=== PATIENT | female | born 2000 | race Two or more races ===

== ENCOUNTER 2024-04-13 10:59 | Outpatient (OUT) | payer MEDICAID, SELFPAY ==
[2024-04-13 11:43] LABS: Estimated Average Glucose 97 mg/dL
[2024-04-13 11:44] LABS: Basophils Percent Auto 0.2 % (0.2-2.0); Eosinophils Absolute Auto 0.1 10^3/uL (0.0-0.7); Hematocrit 34.4 % (36.0-48.0); Hemoglobin 11.6 g/dL (12.0-16.0); Immature Granulocytes Abs Auto 0.03 10^3/uL (0.00-0.03); Immature Granulocytes Pct Auto 0.3 % (0.0-0.5); Lymphocytes Absolute Auto 1.8 10^3/uL (1.2-3.8); Lymphocytes Percent Auto 18.8 % (20.5-60.0); Mean Corpuscular HGB Conc 33.7 g/dL (29.9-35.2); Mean Corpuscular Hemoglobin 30.1 pg (26.7-34.0); Mean Corpuscular Volume 89.4 fL (81.0-99.0); Mean Platelet Volume 8.7 fL (9.5-13.5); Monocytes Absolute Auto 0.7 10^3/uL (0.3-0.8); Monocytes Percent Auto 6.8 % (1.7-12.0); Neutrophils Percent Auto 72.9 % (43.0-75.0); Platelet Count 314 10^3/uL (150-450); Red Blood Count 3.85 10^6/uL (4.20-5.40); Red Cell Distribution Width 12.1 % (11.0-15.0); White Blood Count 9.5 10^3/uL (4.0-11.0)
[2024-04-13 12:36] LABS: Amphetamine Screen Urine NEGATIVE (NEGATIVE); Barbiturates Screen Urine NEGATIVE (NEGATIVE); Benzodiazepines Screen Urine NEGATIVE (NEGATIVE); Buprenorphine Screen Urine NEGATIVE (NEGATIVE); Cannabinoid Screen Urine POSITIVE (NEGATIVE); Cocaine Screen Urine NEGATIVE (NEGATIVE); Methadone Screen Urine NEGATIVE (NEGATIVE); Methamphetamines Screen Urine NEGATIVE (NEGATIVE); Opiate Screen Urine NEGATIVE (NEGATIVE); Oxycodone Screen Urine NEGATIVE (NEGATIVE); Phencyclidine Screen Urine NEGATIVE (NEGATIVE); Tricyclic Antidepressant Urine NEGATIVE (NEGATIVE)
[2024-04-14 06:08] LABS: HCV Ab Non Reactive (Non Reactive); HIV Ab/p24 Ag Screen Non Reactive (Non Reactive)
[2024-04-14 07:08] LABS: HBsAg Screen Negative (Negative); Rubella Antibodies, IgG 1.42 index (Immune >0.99)
[2024-04-14 13:07] LABS: Rapid Plasma Reagin, Quant Non Reactive titer (NonRea<1:1)
[2024-04-18 00:11] LABS: Cannabinoid Positive (.); Carboxy THC Conf, MS, UR >750 ng/mL (Cutoff=10)
== END 2024-04-13 11:00 | disposition home or self-care (01) ==
LOC: LAB 11:04
PROVIDERS: PCP Obstetrics & Gynecology; Visit Provider Obstetrics & Gynecology
DX: Z34.01 Encounter for supervision of normal first pregnancy, first trimester (principal); N92.6 Irregular menstruation, unspecified
CPT/HCPCS: 36415; 80307; 80349; 83036; 85025; 86592; 86762; 86803; 86850; 86900; 86901; 87086; 87340; 87389

== ENCOUNTER 2024-04-15 11:25 | Outpatient (OUT) | payer MEDICAID, SELFPAY ==
--- NOTE | 2024-04-15 11:28 | US_ITS ---
The [address] [address] Patient Name: ENRICO CASTILLO MRN: [id number] date: 2000 Sex: F Assigned Patient Location: [facility] Current Patient Location: Accession/Order Number: [id number] Exam Date: 04/15/2024 11:29 Report Date: 04/16/2024 04:41 At the request of: NANCI TATUM Procedure: US OB <= 14 weeks fetus EXAMINATION: US OB <= 14 weeks fetus HISTORY: MISSED MENSES COMPARISON: No relevant comparison available. FINDINGS: GESTATIONAL SAC: Present and normal appearing. YOLK SAC: Present and normal appearing. POLE: Present and normal appearing. CARDIAC: Present. UTERUS: Normal size and appearance. OVARIES: Right: Not seen. Left: Normal. CERVIX: Not evaluated. CUL-DE-SAC: Normal. OTHER: None. AGE BY LMP: 14 weeks 0 days SAI BY LMP: 10/14/2024 AGE BY US CRL: 14 weeks 3 days SAI BY US CRL: 10/11/2024 US/US OB <= 14 weeks fetus IMPRESSION: 1. Single live intrauterine . 2. Suboptimal evaluation due to maternal body habitus and age. Electronically authenticated by: OMAR MAGALLANES Date: 04/16/2024 04:41
== END 2024-04-15 11:26 | disposition home or self-care (01) ==
LOC: NOMS 11:26
PROVIDERS: PCP Obstetrics & Gynecology; Visit Provider Obstetrics & Gynecology
DX: Z34.01 Encounter for supervision of normal first pregnancy, first trimester (principal); Z3A.14 14 weeks gestation of pregnancy; N92.6 Irregular menstruation, unspecified
CPT/HCPCS: 76801

== ENCOUNTER 2024-05-18 11:54 | Outpatient (OUT) | payer MEDICAID, SELFPAY ==
--- OUTSIDE RECORDS SUMMARY | 2024-05-18 12:10 | XMS_ITS | CCD ---
Author Organization [facility] Care Team Providers Care [employer] Player Name Role Phone Maria Elena James Attending Unavailable Horn, Maria Elena Primary Care Unavailable Mari aElena James Attending Unavailable Jacob, Maria Elena Primary Care Unavailable Kathy Kraus Primary Care Physician [phone] Virginie Anthony Attending Unavailable Jose Duran Attending Unavailable MEGAN NESBITT Attending Unavailable Ivelisse Leger Referring Unavailable Ivelisse Leger Admitting Unavailable Ivelisse Leger Attending Unavailable Jose Duran Attending Unavailable Unavailable Primary Care Provider UnavailSARAH Rizo Attending Unavailable YONY SOTO Attending Unavailable Allergies Allergy Classification Reported Allergen(s) Allergy Type Date of Onset Reaction(s) Facility (2 sources) No Known Medication Allergies; Translations: [No Known Medication Allergies] Propensity to adverse reactions (disorder) [facility] Repository Medications Current Medications Medication Drug Class(es) Dates Sig (Normalized) Sig (Original) amoxicillin 875 mg / clavulanate 125 mg oral tablet (1 source) Penicillin-class Antibacterial Start: 12-07-2021 End: 12-17-2021 Augmentin 875 mg-125 mg Tab 1 tab(s), Oral, q12hr for 10 day(s), 20 tab(s), Refill(s) 0 Start Date: 12/07/21 Stop Date: 12/17/21 Status: Ordered ciprofloxacin 3 mg/ml / dexamethasone 1 mg/ml otic suspension (2 sources) Corticosteroid, Quinolone Antimicrobial Start: 12-06-2021 End: 12-13-2021 ciprofloxacin-dex amethasone 0.3%-0.1% Otic Susp 4 drop(s), Ear-Right, BID for 7 day(s), 10 mL, Refill(s) 0, [facility]/pharmacy #[id number], 168, cm, 12/06/21 8:00:00 EDT, Height/Length Dosing, 107, kg, 12/06/21 8:00:00 EDT, Weight Dosing Start Date: 12/06/21 Stop Date: 12/13/21 Status: Ordered fluticasone propionate 0.05 mg/actuat metered dose nasal spray (1 source) Corticosteroid Start: 01-16-2021 take 1 spray(s) nasal route twice daily fluticasone 0.05 mg/inh Nasal Mcdonald 1 spray(s), Nasal, BID, 16 gram, Refill(s) 5, each nostril, [facility]/pharmacy #[id number], 168, cm, 01/16/21 11:00:00 EDT, Height/Length Dosing, 109.7, kg, 01/16/21 11:00:00 EDT, Weight Dosing Start Date: 01/16/21 Status: Ordered fluticasone 0.05 mg/inh Nasal Mcdonald (1 source) Start: 01-16-2021 take 1 spray(s) nasal route twice daily fluticasone 0.05 mg/inh Nasal Mcdonald 1 spray(s), Nasal, BID, 16 gram, Refill(s) 5, each nostril, [facility]/pharmacy #[id number], 168, cm, 01/16/21 11:00:00 EDT, Height/Length Dosing, 109.7, kg, 01/16/21 11:00:00 EDT, Weight Dosing Start Date: 01/16/21 Status: Ordered GENERIC EXTERNAL MEDICATION (5 sources) take 1 tablet by mouth once daily GENERIC EXTERNAL MEDICATION Take 1 tablet by mouth Daily Active naproxen 500 mg oral tablet (6 sources) Nonsteroidal Anti-inflammatory Drug Start: 12-07-2021 take 1 tablet by mouth twice daily as needed for pain Naprosyn 500 mg Tab 500 mg = 1 tab(s), Oral, BID, PRN for pain, # 20 tab(s), Refills(s) 0 Start Date: 12/07/21 Status: Ordered Start: 12-07-2021 Naprosyn Oral, BID, Refills(s) 0 Start Date: 12/07/21 Status: Ordered promethazine hydrochloride 25 mg oral tablet (2 sources) Phenothiazine Start: 06-15-2021 take 1 tablet by mouth twice daily as needed for nausea promethazine 25 mg Tab 25 mg = 1 tab(s), Oral, BID, PRN as needed for nausea/vomiting, # 60 tab(s), Refills(s) 1, Pharmacy: [facility]/pharmacy #[id number], 168, cm, 04/03/21 14:43:00 EST, Height/Length Dosing, 105.8, kg, 04/03/21 14:43:00 EST, Weight Dosing Start Date: 06/15/21 Status: Ordered Problems Active Problems Problem Classification Problem Date Documented Da te Episodic/Chronic Abdominal pain (5 sources) Left upper quadrant pain 01-16-2021 Episodic Anxiety disorders (5 sources) Anxiety 10-02-2020 Chronic Gastroduodenal ulcer (except hemorrhage) (5 sources) 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 Nausea and vomiting (10 sources) Nausea and vomiting 06-07-2021 Episodic Noninfectious gastroenteritis (10 sources) Chronic diarrhea; Translations: [Gastroenteritis] 04-13-2021 Episodic Other ear and sense organ disorders (3 sources) Otitis externa; Translations: [Unspecified otitis externa, unspecified ear] Onset: 12-06-2021 Chronic Other liver diseases (5 sources) Non-alcoholic fatty liver Onset: 04-29-2017 01-06-2019 Chronic Other liver diseases (5 sources) Steatosis of liver 06-15-2021 Chronic Other nutritional; endocrine; and metabolic disorders (5 sources) Body mass index 40+ - severely obese 05-06-2020 Chronic Other and delivery including normal (3 sources) Normal ; Translations: [Encounter for supervision of normal first , first trimester] 03-12-2024 Episodic Other upper respiratory infections (10 sources) Sore throat symptom; Translations: [Streptococcal sore throat] Onset: 08-16-2018 04-13-2021 Episodic Residual codes; unclassified (1 source) Gestation period, 9 weeks; Translations: [9 weeks gestation of ] 03-12-2024 Episodic Residual codes; unclassified (2 sources) Gestation period, 15 weeks; Translations: [15 weeks gestation of ] 04-23-2024 Episodic Skin and subcutaneous tissue infections (1 source) Cellulitis of face; Translations: [Cellulitis of face] Onset: 12-07-2021 Episodic Substance-related disorders (3 sources) Smoker 12-07-2021 Chronic Comment on above: Added secondary to d ocumentation in Social History. Superficial injury; contusion (1 source) Contusion of hand; Translations: [Contusion of unspecified hand, initial encounter] Onset: 10-25-2022 Episodic Unclassified (5 sources) History of SARS-CoV-2 04-13-2021 Unclassified (5 sources) Non-smoker 05-06-2020 Past or Other Problems Problem Classification Problem Date Documented Da te Episodic/Chronic Viral infection (1 source) Disease caused by 2019-nCoV; Translations: [COVID-19] Results Test Name Value Interpretation Reference Range Facility Urinalysis macro (dipstick) panel (U)on 04-23-2024 Bilirubin, UA Negative Negative - 4(70) +++ mg/dL [facility] Blood, UA Negative Negative - 50 Titus/mcL [facility] Clarity, UA Clear [facility] Color, UA Yellow [facility] Glucose, UA Negative Negative - 2000(110) ++++ mg/dL [facility] Interpretation and review of laboratory results Abnormal [facility] Ketones, UA Negative Negative - 160(16) ++++ mg/dL [facility] Leukocytes, UA Negative Negative - 500+++ Tristan/mcL [facility] Nitrite, UA Negative Negative - Positive [facility] pH, UA 7.5 5 - 9 [facility] Protein, UA Trace Negative - 2000(20) ++++ mg/dL [facility] Spec Grav, UA 1.02 1 - 1.03 [facility] Urobilinogen, UA 0.2 0.2 - 12 mg/dL [facility] HEMOGLOBIN A1Con 024 Glucose [Mass/Vol] 97 mg/dL [facility] HbA1c (Bld) [Mass fraction] 5 % 4.5 - 6.2 % [facility] Comment on above: ADA RECOMMENDED LIMI T 4.0 - 6.0 ADA THERAPEUTIC TARGET < 7.0 ACTION SUGGESTED > 7.0 [facility] DHEASon 11-01-2022 DHEA-S [Mass/Vol] 254.0 microgram/dL Invalid Interpretation Code 110.0-431.7 [facility] Comment on above: Result Comment: Perf ormed at: [facility] [address] [id number] PhD Mp Holloway Performed By: #### 1 [id number], 5569374, 51855651, 9151485, 3270225, 1815593, 99316430, 7359115, [id number], [id number] ####[facility] [address] [place] [address] FSH and LHon 11-01-2022 Follitropin Qn 3.7 m[IU]/mL Invalid Interpretation Code [facility] Comment on above: Result Comment: Adul t Female: Follicular phase 3.5 - 12.5 Ovulation phase 4.7 - 21.5 Luteal phase 1.7 - 7.7 Postmenopausal 25.8 - 134.8 Performed at: [address] [id number] PhD Mp Holloway Performed By: #### 1 [id number], 8493440, 02590675, 4181955, 1131212, 2183680, 65765691, 0259570, [id number], [id number] ####[address] [place] [address] Lutropin Qn 4.3 m[IU]/mL Invalid Interpretation Code [facility] Comment on above: Result Comment: Adul t Female: Follicular phase 2.4 - 12.6 Ovulation phase 14.0 - 95.6 Luteal phase 1.0 - 11.4 Postmenopausal 7.7 - 58.5 Performed By: #### 1 [id number], 8214587, 57951793, 8407234, 8080240, 5915052, 99742593, 7517674, 925374045, [id number] ####[facility] [address] [place] [address] Insulin Lvlon 11-01-2022 Insulin Qn 12.8 u[IU]/mL Invalid Interpretation Code 2.6-24.9 [facility] Comment on above: Result Comment: Perf ormed at: [address] [id number] PhD Mp Holloway Performed By: #### 1 3364233, 7967185, 17085196, 2884555, 5401561, 5675477, 97916365, 6058991, [id number], [id number] ####[facility] [address] [place] [address] Testost Totalon 11-01-2022 Testosterone [Mass/Vol] 31 ng/dL Invalid Interpretation Code [facility] Comment on above: Result Comment: Perf ormed at: [facility] [address] [id number] PhD Mp Holloway Performed By: #### 1 0922930, 2816930, 97922160, 7536721, 3920072, 4540536, 15198273, 1061956, 431576550, [id number] ####[facility] [address] [place] [address] CHEMISTRYOrdered By: SYSTEM SYSTEM on 10-31-2022 25-hydroxyvitamin D3 [Mass/Vol] 10.1 ng/mL Low 30.0 - 100.0 ng/mL [facility] Remisol Cholesterol [Mass/Vol] 190 mg/dL Normal 120 - 200 mg/dL [facility] Remisol Cholesterol in HDL [Mass/Vol] 44 mg/dL Invalid Interpretation Code [facility] Remisol Cholesterol in LDL [Mass/Vol] 108 mg/dL Normal <=129mg/dL [facility] Remisol Cholesterol in VLDL [Mass/Vol] 50 mg/dL High 7 - 40 mg/dL [facility] Remisol Glucose post fast [Mass/Vol] 94 mg/dL Normal 55 - 99 mg/dL [facility] Remisol Prolactin [Mass/Vol] 7.55 ng/mL Normal 3.34 - 26.72 ng/mL [facility] Remisol Triglyceride [Mass/Vol] 252 mg/dL High <=149mg/dL [facility] Remisol TSH Qn 1.29 m[IU]/L Normal 0.34 - 5.60 mcIU/mL [facility] Remisol CHEMISTRYOrdered By: Hiro fernandez on 10-31-2022 HbA1c (Bld) [Mass fraction] 4.9 % Normal <=5.9% FT ChemAutoSS Consent for Treatmenton Consent for Treatment [id number]#1 .00CD:127 Normal [facility] Glu Fastingon 10-31-2022 Glucose [Mass/Vol] 94 mg/dL Normal 55-99 [facility] Comment on above: Performed By: #### 1 [id number], 9582297, 52919245, 8592091, 5618890, 5574966, 47932223, 9969283, 676687159, [id number] ####[facility] [address] [place] [address] YopA4dlg 10-31-2022 HbA1c (Bld) [Mass fraction] 4.9 % Normal <=5.9 [facility] Comment on above: Performed By: #### 1 7473732, 6268002, 67574720, 5077741, 9449705, 2515422, 73205885, 2926709, 466280600, 879354752 ####[facility] [address] [place] [address] Lipid Panelon 10-31-2022 Cholesterol [Mass/Vol] 190 mg/dL Normal 120-200 [facility] Comment on above: Performed By: #### 1 4619769, 6974193, 59432872, 1431581, 3603033, 8910992, 80536860, 4344565, 821388382, 042944885 ####[facility] [address] [place] [address] Cholesterol in HDL [Mass/Vol] 44 mg/dL Invalid Interpretation Code [facility] Comment on above: Result Comment: HDL > or equal to 60 mg/dL: Low cardiovascular risk HDL < 40 mg/dL : High cardiovascular risk Performed By: #### 1 9977480, 1376745, 26190354, 0607083, 0099293, 6430638, 52678037, 7163176, 211143788, 488907634 ####[facility] [address] [place] [address] Cholesterol in LDL [Mass/Vol] 108 mg/dL Normal <=129 [facility] Comment on above: Performed By: #### 1 2753220, 6204014, 39511423, 1610993, 3654553, 6397997, 11692340, 6848864, 208091217, 109038213 ####[facility] [address] [place] [address] Cholesterol in VLDL [Mass/Vol] 50 mg/dL High 7-40 [facility] Comment on above: Performed By: #### 1 8077378, 3678234, 55190877, 4452380, 3554505, 5371611, 92334020, 3056560, 497969944, 657610865 ####[facility] [address] [place] [address] Triglyceride [Mass/Vol] 252 mg/dL High <=149 [facility] Comment on above: Performed By: #### 1 8401787, 1205191, 29977649, 3995572, 3267536, 7488063, 90360341, 1150525, 802528679, 115348016 ####[facility] [address] [place] [address] Physician Orderon 10-31-2022 Physician Order [id number] #1.00CD:127 Normal [facility] Prolactinon 10-31-2022 Prolactin [Mass/Vol] 7.55 ng/mL Normal 3.34-26.[address] [facility] Comment on above: Performed By: #### 1 0359005, 9380699, 97916879, 7800487, 7736473, 9153614, 79430142, 8093760, 944401925, 956037004 ####[facility] [address] [place] [address] TSHon 10-31-2022 TSH Qn 1.29 m[IU]/L Normal 0.34-5.60 [facility] Comment on above: Performed By: #### 1 6929486, 9638065, 90545199, 0203781, 7225515, 4290222, 53065541, 4179303, 529938647, 785104184 ####[facility] [address] [place] [address] US Pelvis Non-OB Completeon 10-31-2022 US Pelvis Non-OB Complete Exam Date/Time: 10/31/2022 09:38 EDT Reason for Exam: N93.8 Report IMPRESSION: Unremarkable ultrasound of the female pelvis. EXAMINATION: US Pelvis Non-OB Complete HISTORY: Irregular periods. COMPARISON: CT 07/12/2021 TECHNIQUE: Sonography of the pelvis was performed by transabdominal technique. Images were obtained and stored in a permanent archive. RESULT: Uterus: -Orientation: Anteverted -Size: Uterus Length: 7.9 cm x Uterus Width: 4.4 cm x Uterus Height: 3.0 cm. Uterus Volume: 54.6 cm3 -Myometrium: Homogeneous echotexture. -Endometrial echo complex: Endometrium Thickness: 1.2 cm -Cervix: Not well evaluated trans-abdominally Right ovary: Normal sonographic appearance. -Size: Right Ovary Length: 3.6 cm x Right Ovary Width: 2.6 cm x Right Ovary Height: 1.2 cm. Right Ovary Volume: 6.1 cm3 -Complex cyst: None. -Solid mass: None. -Vascular flow present. Left ovary: Normal sonographic appearance. -Size: Left Ovary Length: 2.8 cm x Left Ovary Width: 2.8 cm x Left Ovary Height: 1.7 cm. Left Ovary Volume: 7.0 cm3 -Complex cyst: None. -Solid mass: None. -Vascular flow present. Free fluid: None. Report Ordering Provider: Ivelisse Leger FINAL REPORT Dictated: 10/31/2022 3:10 pm Rito García MD Signed (Electronic Signature): 10/31/2022 3:10 pm Signed by: Rito García MD Transcribed by: MILES Technologist: BARI Normal [facility] Vitamin D 25 Hydroxyon 10-31 25-hydroxyvitamin D3 [Mass/Vol] 10.1 ng/mL Low 30.0-100.0 [facility] Comment on above: Result Comment: Vit sanchez D deficiency has been defined as a level of serum 25-OH vitamin D less than 20 ng/mL (1,2) by the [place] of [employer] and an Endocrine Society practice guideline. The Endocrine Society further defined vitamin D insufficiency as a level between 21 and 29 ng/mL (2). 1. IOM ([place] of Medicine). 2010. Dietary reference intakes for calcium and D. [place]: The National Academies Press. 2. Lauro MF, Idris BRITO, Torin BRENNAN, et al. Evaluation, treatment, and prevention of vitamin D deficiency: an Endocrine Society clinical practice guideline. JCEM. 2010; 96 (7):1911-30. Performed By: #### 1 [id number], 2410556, 00432612, 3503657, 6262200, 4643602, 12399551, 0905768, 856742995, [id number] ####[facility] [address] [place] [address] Consent for Treatmenton 09-28 Consent for Treatment [id number] .00CD:127 Normal [facility] Discharge Instructionson Discharge Instructions [id number]#1 .00CD:127 Normal [facility] ED Clinical Summaryon 2022 ED Clinical Summary [place] [id number] ED Clinical Summary Person Information Name: APRIL PUENET Kandy/[facility] Age: 22 Years : 2000 Sex: Female Language: [place] PCP: Kathy Kraus NP Marital Status: Single Visit Id: Visit Reason: Hand pain-swelling; Hand injury - Minor; RIGHT HAND INJURY Speciality: Acuity: 4 Enc Type: Emergency Med Service: Emergency Arrival: 10/25/2022 10:11:42 Discharge: 10/25/2022 11:15:24 LOS: 000 01:04 Checkin: 10/25/2022 10:11:42 Checkout: 10/25/2022 11:15:24 Dispo Type: Home (Routine DC) EVENTS: Event Name Event Status Request Date/Time Start Date/Time Complete Date/Time Arrive Complete 10/25/2022 10:11:42 10/25/2022 10:11:42 10/25/2022 10:11:42 Document Home Meds Request 10/25/2022 10:11:42 Triage Complete 10/25/2022 10:11:42 10/25/2022 10:20:49 10/25/2022 10:20:49 Registration Complete 10/25/2022 10:17:03 10/25/2022 10:17:03 10/25/2022 10:17:03 Reg Complete Request 10/25/2022 10:17:03 Reg Bed Request Complete 10/25/2022 10:17:03 10/25/2022 10:17:03 10/25/2022 10:17:03 Bed Assign Complete 10/25/2022 10:17:16 10/25/2022 10:17:16 10/25/2022 10:17:16 Dr Exam Complete 10/25/2022 10:17:16 10/25/2022 10:17:48 10/25/2022 10:17:48 RN Exam Complete 10/25/2022 10:17:16 10/25/2022 10:22:33 10/25/2022 10:22:33 Registration Request 10/25/2022 10:17:48 Dr Exam Complete 10/25/2022 10:17:58 10/25/2022 10:17:58 10/25/2022 10:17:58 X-Ray Complete 10/25/2022 10:23:49 10/25/2022 10:24:22 10/25/2022 10:32:30 Wet Read Request 10/25/2022 10:32:30 Discharge Complete 10/25/2022 11:08:03 10/25/2022 11:18:49 10/25/2022 11:18:49 Transfer Complete 10/25/2022 11:18:49 10/25/2022 11:18:49 10/25/2022 11:18:49 ADDRESS: [address] [place] [address] [address] [facility] [phone] PHYS DOC NOTES: MEDICAL INFORMATION: Prescriptions Given: Medications to Continue with No Changes Other Medications naproxen (Naprosyn 500 mg Tab) 1 Tablets By Mouth 2 times a day as needed for pain. Refills: 0. naproxen (Naprosyn) By Mouth 2 times a day. PATIENT EDUCATION INFORMATION: Instructions: Hand Contusion Follow up: With: Address: When: Kathy Kraus [address] [place], [place] [phone] Business (1) In 3 days 10/28/2022 DIAGNOSIS: Hand contusion Normal [facility] ED Note-Physicianon 10-26-19 ED Note-Physician Basic Information Time Seen: Carlos Han PA-C 10/25/2022 10:17 Chief Complaint Patient states punched wall multiple times due to of cat. C/o right hand pain. History of Present Illness 22-year-old female comes to the ED for evaluation of a right hand injury. The patient states she punched a wall today, presents with pain and swelling of the dorsal aspect of the right hand. She has no other complaints or concerns. No prior treatments. Review of Systems A 10 point review of systems is negative except as noted above. Medical and Surgical History: Reviewed and noted Social history: Lives at home Tobacco: Denies Physical Exam Vitals & Measurements T: 36.7 ?C(Oral) HR: 94(Peripheral) RR: 18 BP: 124/80 SpO2: 99% HT: 168 cm WT: 100 kg BMI: 35.43 Nurses notes and vital signs reviewed and patient is not hypoxic. General: The patient appears well, resting comfortably. Skin: Warm, dry. Head: Atraumatic. Neck: No JVD. Eye: Normal conjunctiva. Ears, Nose, Mouth, and Throat: Moist mucous membranes. Cardiovascular: Strong distal pulses. Chest wall: Respiratory: Respirations are nonlabored. Back: Normal range of motion. Musculoskeletal: Tenderness and soft tissue swelling to the dorsal aspect of the right hand around the MCP joints of the fourth and fifth digits. Range of motion of the fingers is decreased due to pain. No gross deformity. No bony instability. No evidence of neurovascular compromise. No tenderness over the wrist. Gastrointestinal: Urological: Neurological: Awake and alert. No focal deficits. Follows commands. Psychiatric: Cooperative. Medical Decision Making X-rays show no evidence of fracture or dislocation. The diagnostic limitation of x-rays were discussed. It was explained that follow-up imaging may be necessary, and PCP follow-up was given. Patient is educated rice therapy. Patient was encouraged to return to the ED if symptoms worsen or change. Assessment/Plan Hand contusion (S60.229A: Contusion of unspecified hand, initial encounter) Orders: XR Hand 3+ Views Right Disposition Plan Patient Discharge Condition Disposition: Discharged home Condition: Improved and stable Counseled: Patient and/or family were counseled to workup, results, treatment plan and follow-up recommendations Discharge Prescription List Prescriptions No active prescription medications Follow-up With When Contact Information Kathy Kraus In 3 days 10/28/2022 EDT [address] [place] [address] [phone] Business (1) Additional Instructions: Patient Education Hand Contusion Attestation Patient seen and evaluated by the physician first assistant. Attending physician was present in the emergency department and supervised care. This visit was performed by both the physician and an APC. I performed all aspects of the MDM as documented. This report was transcribed using voice recognition software. Every effort was made to ensure accuracy, however, inadvertently computerized net architect mistakes may be present. Appropriate healthcare PPE was used in evaluating this patient. The patient was placed in a mask. The healthcare provider was wearing mask, gloves, and utilizing proper hand hygiene. All equipment was properly cleansed. Problem List/Past Medical History Ongoing Bilateral otitis externa Chronic diarrhea Duodenal ulcer Fatty liver Fatty liver disease, nonalcoholic Gastroenteritis History of COVID-19 Morbid obesity with BMI of 40.0-44.9, adult Nausea and vomiting Nausea with vomiting Non-smoker Smoker Sore throat Historical Anxiety Left upper quadrant pain Strep throat Procedure/Surgical History bilateral tubes in ears (2003). Medications Inpatient No active inpatient medications Home Naprosyn, Oral, BID, Not taking Naprosyn 500 mg Tab, 500 mg= 1 tab(s), Oral, BID, PRN, Not taking Allergies No Known Allergies No Known Medication Allergies Social History Alcohol - Denies Alcohol Use, 03/08/2020 Substance Abuse - High Risk, 10/02/2020 Current, Marijuana, 1-2 times per week, 10/02/2020 Tobacco - Denies Tobacco Use, 03/08/2020 Never (less than 100 in lifetime) Tobacco Use:. Never Smokeless Tobacco Use:. Household tobacco concerns: No., 12/09/2021 Never (less than 100 in lifetime) Tobacco Use:. Never Smokeless Tobacco Use:., 02/23/2021 Family History Family history is negative Lab Results No qualifying data available. Diagnostic Results XR Hand 3+ Views Right 10/25/22 10:40:11 IMPRESSION: NEGATIVE RIGHT HAND. CLINICAL HISTORY: Pain, Traumatic COMPARISONS: NONE AVAILABLE FINDINGS: AP, lateral and oblique views of the right hand demonstrate no evidence of fracture, dislocation, bone or joint abnormality. Ordering Provider: Carlos Han Signed By: Dick Stark MD, V. 10/25/22 10:32:30 Radiation Dose: Ka,r in mGy = na DAP = na Signed By: Dick Stark MD, V. [facility] Comment on above: Result Comment: Elec tronically Signed By: Carlos Han PA-C\.br\Date and Time Signed: 10/25/22 11:15 EDT\.br\Electronically Co-Signed By: Jose Duran DO\.br\Date and Time Co-Signed: 10/25/22 13:44 EDT ED Patient Education Noteon 10-25-2022 ED Patient Education Note Orthopedics Hand Contusion A hand contusion is a deep bruise to the hand. Contusions are the result of a blunt injury to tissues and muscle fibers under the skin. The injury causes bleeding under the skin. The skin overlying the contusion may turn blue, purple, or yellow. Minor injuries may cause a painless contusion, but more severe injuries may cause contusions that stay painful and swollen for a few weeks. What are the causes? This condition is usually caused by a hard hit or direct force to your hand, such as having a heavy object fall on your hand. What are the signs or symptoms? Symptoms of this condition include: ? A swollen hand. ? Pain and tenderness in your hand. ? Discoloration of your hand. The area may have redness and then turn blue, purple, or yellow. How is this diagnosed? This condition is diagnosed based on: ? A physical exam. ? Your medical history. ? Imaging studies, such as: ? An X-ray. This may be needed to check for other injuries, such as broken bones (fractures). ? A CT scan or an MRI. This may be done if your health care provider thinks you have torn or injured ligaments. How is this treated? This condition may be treated with: ? Rest, ice, pressure (compression), and raising (elevating) the injured area. This is often called RICE therapy. ? An elastic wrap to support your hand. ? Csve-nri-vsalgda medicines to control pain. Follow these instructions at home: RICE therapy ? Rest the injured area. ? If directed, put ice on the injured area. ? Put ice in a plastic bag. ? Place a towel between your skin and the bag. ? Leave the ice on for 20 minutes, 2?3 times a day. ? If directed, apply light compression to the injured area using an elastic wrap. ? Make sure the wrap is not too tight. ? If your fingers become numb or turn cold or blue, take the wrap off and reapply it more loosely. ? Remove and reapply the wrap as told by your health care provider. ? Raise (elevate) the injured area above the level of your heart while you are sitting or lying down. General instructions ? Take kbug-xmn-ksaijbc and prescription medicines only as told by your health care provider. ? Protect your hand from getting injured further. ? Keep all follow-up visits as told by your health care provider. This is important. Contact a health care provider if: ? Your symptoms do not improve after several days of treatment. ? You have increased redness, swelling, or pain in your hand or fingers. ? You have difficulty moving the injured area. ? Your swelling or pain is not relieved with medicines. Get help right away if: ? You have severe pain. ? Your hand or fingers become numb. ? Your hand or fingers turn pale, blue, or cold. ? You cannot move your hand or wrist. ? Your hand is warm to the touch. Summary ? A hand contusion is a deep bruise to the hand. ? Contusions are the result of a blunt injury to tissues and muscle fibers under the skin. ? This injury is treated with rest, ice, compression and elevation. This information is not intended to replace advice given to you by your health care provider. Make sure you discuss any questions you have with your health care provider. Document Revised: 08/03/2021 Document Reviewed: 08/03/2021 [employer] Patient Education ? 2022 [employer] [facility] ED Patient Summaryon 06-29-2 023 ED Patient Summary [place] [id number] Patient Discharge Instructions Person Information Name: APRIL PUENTE Age: 22 Years Arrival Date: 10/25/2022 10:11:42 Discharge Diagnosis: Hand contusion Primary Care Physician: Kathy Kraus NP Provider Information Primary Provider: Jose Duran DO Advanced Veterinary Radiologist:Carlos Han PA-C The exam and treatment you received in the Emergency Department were for an urgent problem and are not intended as complete care. It is important that you follow up with a doctor, nurse practitioner, or physician?s first assistant for ongoing care. If your symptoms become worse or you do not improve as expected and you are unable to reach your usual health care provider, you should return to the Emergency Department. We are available 24 hours a day. APRIL PUENTE has been given the following list of patient education materials, prescriptions and follow-up instructions: Follow-up Instructions: With: Address: When: Kathy Kraus [address] [place], [place] [id number] [phone] Business (1) In 3 days 10/28/2022 In the event that this physician does not participate in your insurance network, please consult with your insurance company to find a nearby participating provider. Patient Education Materials: Hand Contusion A MESSAGE TO ALL PATIENTS REGARDING OPIOIDS PRESCRIPTION OPIOIDS: WHAT YOU NEED TO KNOW Prescription opioids can be used to help relieve wvqeoees-ez-mbjkiv pain and are often prescribed following a surgery or injury, or for certain health conditions. These medications can be an important part of the treatment but also come with serious risks. It is important to work with your healthcare provider to make sure you are getting the safest, most effective care. WHAT ARE THE RISKS AND SIDE EFFECTS OF OPIOID USE? Prescription opioids carry serious risks of addiction and overdose, especially with prolonged use. An opioid overdose, often marked by slowed breathing, can cause sudden . The use of prescription opioids can have a number of side effects as well, even when taken as directed: ? Tolerance?meaning you might need to take more of the medication for the same pain relief ? Physical dependence?meaning you have symptoms of withdrawal when a medication is stopped ? Increased sensitivity to pain ? Constipation ? Nausea, vomiting, and dry mouth ? Sleepiness and dizziness ? Confusion ? Depression ? Low levels of testosterone that can result in lower sex drive, energy, and strength ? Itching and sweating RISKS ARE GREATER WITH: ? History of drug misuse, substance use disorder, or overdose ? Mental health conditions (such as depression or anxiety) ? Sleep apnea ? Older age (65 years and older) ? Avoid alcohol while taking prescription opioids. Also, unless specifically advised by your health care provider, medications to avoid include: ? Benzodiazepines (such as Xanax or Valium) ? Muscle relaxants (such as Soma or Flexeril) ? Hypnotics (such as Ambien or Lunesta) ? Other prescription opioids KNOW YOUR OPTIONS Talk to your health care provider about ways to manage your pain that don?t involve prescription opioids. Some of these options may actually work better and have fewer risks and side effects. Options may include: ? Pain relievers such as acetaminophen, ibuprofen, and naproxen ? Some medication that are also used for depression or seizures ? Physical therapy and exercise ? Cognitive behavioral therapy, a psychological, goal-directed approach, in which patients learn how to modify physical, behavioral, and emotional triggers of pain and stress. IF YOU ARE PRESCRIBED OPIOIDS FOR PAIN: ? Never take opioids in greater amounts or more often than prescribed. ? Follow up with your primary health care provider. o Work together to create a plan on how to manage your pain. o Talk about ways to help manage your pain that don?t involve prescription opioids. o Talk about any and all concerns and side effects. ? Help prevent misuse and abuse o Never sell or share prescription opioids. o Never use another person?s prescription opioids. ? Store prescription opioids in a secure place and out of reach of others (this may include visitors, children, friends, and family). ? Safely dispose of unused prescription opioids: Find your community drug take-back program or your pharmacy mail-back program, or flush them down the toilet, following guidance from the Food and Drug Administration (www.fda.gov/Drugs/Re sourcesForYou). ? Visit www.cdc.gov/drugoverd ose to learn about the risks of opioids abuse and overdose. ? If you believe you may be struggling with addiction, tell your health care companion and ask for guidance or call SAMHSA?S National Helpline at 1-024-001-HELP. v Source: [place] Department o (more content not included)... Normal [facility] XR Hand 3+ Views Righton XR Hand 3+ Views Right Exam Date/Time: 10/25/2022 10:32 EDT Reason for Exam: Pain, Traumatic Report IMPRESSION: NEGATIVE RIGHT HAND. CLINICAL HISTORY: Pain, Traumatic COMPARISONS: NONE AVAILABLE FINDINGS: AP, lateral and oblique views of the right hand demonstrate no evidence of fracture, dislocation, bone or joint abnormality. Ordering Provider: Carlos Han FINAL REPORT Dictated: 10/25/2022 10:37 am Dick Stark MD, V. Signed (Electronic Signature): 10/25/2022 10:37 am Signed by: Dick Stark MD, V. Transcribed by: MILES Technologist: ELIA, Technical Comments Radiation Dose: Ka,r in mGy = na DAP = na Normal [facility] Physician Orderon 10-22-2022 Physician Order [id number]. [id number]:127 Normal [facility] Consenton 12-11-2021 Consent [id number] .00CD:127 Normal [facility] Family Medicine Office/Clini c Noteon 12-09-2021 Family Medicine Office/Clinic Note Chief Complaint EST bilateral ear pain HPI Staff Patient 21 yo female presents with ear pain Onset-Saturday Fevers: no Sinus congestion: no Sneezing: no Ear pain: left, right is worse Ear itching, popping, fullness, ringing, muffled hearing: all in both Ear drainage: no Sore throat: no Ear pain worse with chewing: yes DIfficulty hearing: yes Treatment- augmentin, norco, ciproflaxin History of Present Illness APRIL PUENTE is a 21 Years Female presents today for concerns of continued ear pain bilaterally. She states the right is worse today. She has been to the ED on 12/06 and 12/07 for same concerns, was started on Ciprodex eardrops for otitis externa at her first visit and then subsequently started on course of Augmentin and provided with Dairy during her second visit to the ED. Patient states she is taking the medications as prescribed and has gained no effectiveness relief from pain. She denies any fevers/chills, sore throats, nasal symptoms, cough, loss of taste or smell, headaches, tinnitus, dizziness, or any nausea/vomiting/diarr hea with symptoms. She does state that any kind of chewing or opening of the mouth does make the pain worse. Denies any significant facial swelling, erythema, ecchymosis. I have reviewed and verified the staff HPI to be accurate for this encounter. Review of Systems PHQ Score Initial Depression Screen Score: 0 ROS - Provider Constitutional: fever no, chills no, sweats no, weakness no Skin: rash no, lesions no, petechiae no ENMT: ear pain yes, ear drainage no, sore throat no, nasal congestion no , nasal drainage no hoarseness no Respiratory: chest discomfort no, shortness of breath no, cough no, orthopnea no, wheezing no Cardiovascular: chest pain no, palpitations no Neurologic: headache no, dizziness no, numbness/tingling no, weakness no Physical Exam Vitals & Measurements T: 36.7 ?C(Oral) HR: 76(Peripheral) BP: 132/84 SpO2: 99% HT: 168 cm HT: 168.0 cm WT: 107 kg WT: 107.0 kg BMI: 37.91 General: Well developed, well nourished, in no acute distress Ears: No deformity or lesion of external ear. Right Canal with mild edema and erythema, left canal noted with mild purulent drainage. There is a large serous effusion noted to the right TM, left TM appears normal. TM?s intact, Hearing grossly normal to conversational speech Nose: No deformity, discharge, inflammation, or lesions Mouth: Mucous membranes moist. Normal oropharynx, and posterior pharynx without lesions or exudates. Tongue normal Neck: Neck supple. No masses or palpable cervical nodes. Trachea midline. Lungs: Normal respiratory effort and clear to auscultation Cardio: Regular rate and rhythm, normal S1 and S2, no murmur, no rub Neurologic: Grossly normal Skin: No rashes, ulcerations, or suspicious lesions to visible skin Mental Status: Alert and oriented x3. Normal mood and affect Assessment/Plan 1. Bilateral otitis externa (H60.93: Unspecified otitis externa, bilateral) All medications prescribed by ED at this time. Will trial on one-time IM dose of dexamethasone as well as Medrol Dosepak to be discharged tomorrow to see if this helps with serous otitis which was discussed with patient. Can also add an kblm-ibz-itkltsn antihistamine. Please follow-up with her PCP to discuss possible ENT referral as she states this is a recurring issue for her and has had multiple times this year. 2. BMI 37.0-37.9, adult (Z68.37: Body mass index [BMI] 37.0-37.9, adult) Education attached on health risks of obesity and discusses healthy, balanced diet low in sugar, fat, carbs and exercise regimen Ordered: dexamethasone, 8 mg = 2 mL, Injection, IntraMuscular, Once, Stop date 12/09/21 11:40:00 EDT, Routine, Start date 12/09/21 11:40:00 EDT, 12/09/21 11:40:00 EDT Body Mass Index (BMI) documented 3008F Acute serous otitis media (H65.00: Acute serous otitis media, unspecified ear) See treatment plan above Ordered: dexamethasone, 8 mg = 2 mL, Injection, IntraMuscular, Once, Stop date 12/09/21 11:40:00 EDT, Routine, Start date 12/09/21 11:40:00 EDT, 12/09/21 11:40:00 EDT Orders: methylPREDNISolone, = 1 packet(s), Oral, As Directed, as directed on package labeling, X 6 day(s), # 21 tab(s), Refills(s) 0, Pharmacy: [facility]/pharmacy #[id number], 168, cm, 12/09/21 11:32:00 EDT, Height/Length Dosing, 107, kg, 12/09/21 11:32:00 EDT, Weight Dosing Follow-up With When Contact Information Efra DOLL, Kathy Mccartney, [facility] [address] [place] [address] [phone] Additional Instructions: Problem List/Past Medical History Ongoing Bilateral otitis externa Chronic diarrhea Duodenal ulcer Fatty liver Fatty liver disease, nonalcoholic Gastroenteritis History of COVID-19 Morbid obesity with BMI of 40.0-44.9, adult Nausea and vomiting Nausea with vomiting Non-smoker Smoker Sore throat Historical Anxiety Left upper quadrant pain Strep throat Procedure/Surgical History bilateral tubes in ears (2003). M (more content not included)... Normal [facility] Comment on above: Result Comment: Elec tronically Signed By: MEGAN NESBITT CNP\.tanisha\Date and Time Signed: 12/09/21 12:06 EDT Coding Summary.on 12-08-2021 Coding Summary. CD:[id number]:[id number] G h0bWw+PGhlYWQ+AP0QGDS gC08loTPvzC4QF3oAFY9A CSUURCMGTT8AXV3ctBY8J QhvC1IsgcFb TlrjxWCzFE94UTo4BAN8r VorSTpgdW4qfCBtJ6j8Dq KoNK05zX33QKfjUTMfKeU 3LjZpbjsgbWFy S3unMpNsjAOgVlv+PHRhY mxlIHdpZHRoPScxMDAlJy CoyZdbVS7pXh4gFNDbWFJ vbGxhcHNlOiBj p4wsDLChZXzyRA9bcHxfK 0XjmIV6RWDhb1p3Yc73wD I+VCKbLPJ9jEmwDWppx33 3DbEki9fxHYQ2 oVHcUPyiBKE4Y60re9H7S YFtYLXrWCH9xWS6cJ9wxT kjupfcZ1NfcBVpLmI4EGH 9dDJauV1dnKbw bethcY1eDrx+K87SEG2DI ZKZJO2TIxd5V8VyFezfdU I+BL13QAYpAD85ySXazLA on8fvhRv6StTu XWBeSIP6cBtoKIatc6YnA NBmF52euRFth9W5OSHesU topKFjDoFlpKW5oZ1gCYv lwwaux5azzxeb Geyux5sdyy23eH69P27qH FnjKLTrWIQ4VXNfCTJxyR ktff2hnZ4rDm2+GWezh3y lq1sduNg7FxQq YGFpagMsmUjfONJ3c6CsT m12U5TvsKypo8TlMuj6bt 72uSQkt7S8lVB2SAevHRW keF7oOSevSrD3 ALLwPvGojJ37lHBpIAtrU q5abNebhOkxAE4cCICehq drZNXavO6pZDKbgSJfeTr yNW0lYNEyzzun e850GfFeBNH7XNDnmWCgS 4HyxY2yNyKyYQHsSCKpV9 YzkHPmUKgrV232YOmpHdJ 8HSQckbUsE5Jy QRSwnMvnRdR9h2N6Ov5Tm 0AjqxnnLDL3FZptILH7Nn BsIwAwAkW6Y9TnUjy6WBW nxAqlHN6aK0Xx CYLukswyqawvaEB4BRZvD YXxeS48pILpIGbzFw7un7 H0g145BUKyMJEgmK57Rw7 udDogMTBwdCBU xB8mmqrcv9deezkuQlDxS LZbKVq7THt2HJRetLzlZg WnSOF1EwM3BSN6hDZotY7 ldSjotoowoX0z Oyc+H67svL3aVVC4FKK5y ujgJVZtaqBvEQ65XE60J4 RyPjwvdGFibGU+PGRpdiB icTubGM3hKrHp p0tpq8TtJLxsG3OgCSSjE EddVob7RTZbTNM1eLJ9nH 9rTUOqVZcmq5B5uUO8J8W jfnExki7nz6td VWVnQSokZ80ffBAih3P9L GNewUH0TDByjOzoEvCheL 93Oyc+MQWsnEfmx2DxYov fi5wlt0rshOm4 SvJzVREzmjLgtSzkSIO3t 9YnQc99I93wMSreKPGlMI ArLHJfCNUwrShnfn6vhF6 wIi8+PGNvbCB3 xSB4hB3cGOLdLeV8TEjcO 838WmNfzPZzClcvh1qcf4 tfaFk1FtTrITLeahZouKp eQSU8b5YhSg85 I48mVHicSEHiZDQoWMOiM OAzpRrgmc4irQ9dUr5+PC 7qp4gfdy75mN67tRS+PHR dKQW4bVhiGRhw YUBotF8yPXqiAjJ2CWBnE dYnhI01uHJxMQzuLh2nbF cjmIboRB1qURFmbzeah92 2CaGdm0ofSHLp mSBgGGrgODC5U54kl8N6Y PRqVPWeOUK5rGR2vE8egO lnbjogbGVmdDsgdmVydGl mHXqxBTocC799 IHRvcDsnPlBhdGllbnQgT oEqEKo2K7TrDwc9SRMlpY sdLW7zyJXfYHnrTf2orOz goZxeKA0iTYCn kwtps113MvKqr7ltWKLwr SJrEOfyDTE0M29vk6D5YM WvCBEoFJM9wDE4cP1pyUa nbjogbGVmdDsg kmBvuGhkMAdfMPhwN259D HRvcDsnPkJpcnRoIERhdG J4VV35NY04yNIer1W9dKY 5B8FdZUFerfvv sdkywGD1HXSkAUIciA00W k6ggUeqUz6mSACaQBT6PV ElxLSyI0OzwZ7oWeFpIIS oMUEpY4JzrVNu FLinC169EEbtJmT7AZBop aSjY1HsOBSenPipKkE0d3 M1Yu7FX1E3CM45LY79rPT ii3Q2kDQ7S0Tq JNRpcorhlnxjtEU1PPZnI QSavI63Bt5ecFlzVt7pLG IgEMU7UJUrtSWbR2GoyQ6 yOiAjMDAwMDAw W5RwoXFdXTzaU619GBxoP pM3JYQrdxFtL8SbNARzuM sqMcS2i5R2Wl9LFAo8SE3 1II86cVIlw3B3 yHC0S6OvNOOjcexmadhgg KG7COKgAPXpbD18Hb6wlO bhAt4rGNXgXDO6RSXkiLQ yN3FmuU9jGiDq RXFwWJDjM2RbzRDoGRexW 108XKaxHpH6LZMebpKrA5 QxYGWeuYtnJqK3m5K0Qo6 ACDPnMD40AZL2 jBI9WP85PZ60C4FeTfrwc GFibGU+PHRhYmxlIHdpZH RoPScxMDAlJyBzdHlsZT0 oLd9wCZTqXJWm jGwerRTaNvNqq7ykEKKoY IsvQW5npEraR0QqoTJ4II Zdf8y7Ud61I20yH7PwqBN +LMEpeFE1xXV7 wM6tBcNvWiT6IQwfE804D pWydXJyJvsjd8fok0wgaP s6SiD1XEBzydSyjGxwMXS 1p6VtJs36U83y IHdpZHRoPSIxNSUiIHZhb Lskrp5msO1wGn6+PGNvbC M2kAG5iA3bDdFqDsK3WHv zR532GtFxoLQv Nqyba8txu6hieFy0AwVfQ MBgsqEooWybORY7q8LtAm 80V6SugDoas1VcCzp4zi2 2gECfc2Q8gYW2 H3AhTBSkniuxqWVyqXhaN B8pUWImpqtkXBYpwS9zWS CgO7h9TyElRhW2QGthB6A kmwZ9DIEvdNJw ECuyNGX4I42xt8N8OAGkI IXaEHX9oSX6rC1knVrtmt ogbGVmdDsgdmVydGljYWw fXPauN546LOPs rQxfOSBhzH6aBPQwfXIqz UycPR4xTMIntydsQl2PS3 VOWklFLCBTSEVMQlkgUjw vdGQ+PHRkIHN0 bYjrMUirIPIcgZ4kRYRvS 4z7LqItPrJ5XAqiM9OwZH OeczzvIx17mP5vMgKxWdX 3RVggJ4YzlzX6 UFStpKLkOBkyLAK0U87gv 3D4YLLdJDBfDIX0sLW8kF 1hbGlnbjogbGVmdDsgdmV ydGljYWwtYWxp S881UJGbyRzhEdL3VtV5S wAxKGS4K8FxPgx1WNFzqU djTO4goCSqYBefYu8kjQm kdZfjWW6zLIVh caeaNNIxqF5nSOPfxSXiz DjeCW1vARWtpytyi798Np IwOXU9TRCgpMZkX2ZaiB6 yOiAjMDAwMDAw P7JmgMHsAWmtT563XWvbA kX0LCMetvYzC9XgZVAzhN ffLxS6h9Z2Lb0pZFAYTTJ yczwvdGQ+PHRk CNY1sDwtEQsvUUSpjZ2kN QUvZ7e0YpAgLxY9ODvnP5 SeQAVvyllnNz63gQ5rXcL pNiN8PAjkE5Wx meF7DDOojFVkQJjyPZO2Y 62kg3P0CCNlCTBdOCR1tZ M5bL0nyOdwzlcvpFHquKl gdmVydGljYWwt ZZwtE976EUOvbNchCnAal WFsZTwvdGQ+ELRnMBL9zH zuLJfvAPTyeS4rWIArF4o 6KtRtSuB0UVqh F0YdJQRaceyuKo68gO9vP cYyQeY2ATatE0WskcW7AQ AmrKDjNVyeKZE4F75km5Q 2KOZwXHRbMPO6 dLG2eO1alRuzjagqtFBya DsgdmVydGljYWwtYWxpZ2 37GCRevRazEhWtOVJoCB9 jeTwvdGQ+PC90 zg49I6GxOlmoJzx0SXTaP CC9pCV0mL4lTFZmTLhnm7 N1rQM8D0FgnxMghk4kx6x vUBBrCJfeJ22z bOSyy0A4FNEuxWV7FNJid IkbXcHskI11Lbv+PGNvbG nzr3YzPrxav4imn2avmTj 9IjMwJSIgdmFs pLrpALZ3j6WrPj36I67tH HdpZHRoPSIzMCUiIHZhbG oghw1vpX1rCk2+PGNvbCB 4kQZ3kO6cXkGb DmR3FMijJ155GhOmxSJiY fvrj5rdd0bqxAw3ByNwJB IugsChyNnkERG6p1XnMx4 7A4AieJiwr7Xq Isj5is60qZMnl2R3pYU4D 3BhZGRpbmctbGVmdDogMC 5vJSBybtezWUVfrY2eWKC sZ2c5PwYcVrH7 NWccI1OuroQ4IHDjcMKsS JUhlKTQrI5asjfys0bgav lmHuBcEMSfSDy7AMj3TZC saWduOiBsZWZ0 GbK5WQO3mNKbsL8qaLpcb mpdjT9qRkc+VUb2n1asnK HrLC0bvFV2US10XY06jPZ ws8N5nGV8U4Db FBLsxccvxofyjZM8MKSzM YHidC15Dt3kzRdyEw2sXO CoDGK8EMChxHWyP7KonY0 yOiAjMDAwMDAw P2FdtQMqXRstW253BYziI oY1CWSbmgHdT6QeDLHzeD uqTnR7x2G6Sa1LYS77KS3 8XP25uFQla1Q2 yPO4H1YaZUBjtxvxzrywq LX9SWInFKGdxH47Le2klU wzAe7vMVWdWMW1ERInfWH gT3QbvE5vSlOt JLAwGUNdW8YfvJSjKPrtU 097UPpsRzY0YKCytjWfN9 TyJIOhvOzuJyF4k9I0Sg5 RWd23HK58DO89 bWQwz7V5tWF0O2BaHXYug nmiaxpnqAY4XTEpSMIprV 04Gp8dnDjiXc4nSIRaMQU 0DUYiwSPqF1Dk aC0tKjQfYBIkCGWoF8Xmp SDhWMniE693KXcnErY5IH XvqqXoZ2VmQFFieEcaMoB 8v3G8Jt6AVOcy bqn3T7AbMagfqPP+PC90Y JQvUD37wBLewLGkx7dtvT q0NsVqVDIcSAD1aRgmRJd jl5SbELLkV86p bGFw (more content not included)... Normal [facility] Discharge Instructionson Discharge Instructions [id number]# 1.00CD:127 Normal [facility] Coding Summary.on 12-07-2021 Coding Summary. CD:[id number]:[id number] G h0bWw+PGhlYWQ+CG1KRXL jF21tpRHavE9TO7xPUA0O NFOKOZALJJ2LVB4qnYH3Y KwgM3OhvfJm TqloxWRaFJ30OJd9VKY6w HuzXZkwhV7uxANqO4t1Xw LrML43hO03NMijYXDpHlE 3LjZpbjsgbWFy P8yeTcLrbYIvOro+PHRhY mxlIHdpZHRoPScxMDAlJy YiyLjaMS6qDd5tOUFxSPU vbGxhcHNlOiBj k7weBBXfYFyjDN7gbHaqJ 2YfjWK8OTXmt4m7Ea03mH I+LMRqRUP7wIpaMJsuz38 1XzHrt6mdUUI8 zNCvZMlbXUD4F30wa8G7Z ULkMGTaOQE9oGY0cC1cnT arnsmrB2LkbEWcTjF0JIW 8oDPveK8nvWyr nusmvF6kEqz+X11ZMP0KB OTNAA5NHow9T6OoBgqrgA I+RT11OZIhSI62jUHouFX pm0kzrPo7RoPh HTQhXUA3pZgxJSwsz4HyU UDpP63hrQYww4Y0AOIctE mkiFSmAtFwxVM7yD0zNIb azshvf0klqluf Guuwe8llyh75pL11T52wF LszTINmLWC8TIGtHHVyxL quwe9rvT8pRr4+VTzox6v di0ifqJz2DoTr QZEnwaBxjHlsIEB7h7OeG e58Z7UbmWhjh8DxDmj3qg 15zNCok3B6oKP0TTqoEVK hfS9wTVoqIkY9 FMQpRqUuoF28wJExICclE b8nnLmlqFesMI0rDOXcsq yhKQPsxC7hKRKdnJRtdDd wHB7uHVAljqhl p139JxVfCTO1GVMttOGtH 9YbnJ2hFgOuCGXwWTJzD9 HftABwHGloG725JBpyZiT 2LLYysiOnQ3Ua KDKqhNeoKwM0q2O0Qb9Au 6CphfpxALZ2QQexIAK5Qj XrQsSnIwH0K2BdOee3GRI lhHyyNR6qO9Nh EUKbymtgqezbyXC3NVNhP BHctS51zUHyECbaOz6tu2 T0u555NXZbYWIceR52Vr4 udDogMTBwdCBU gT7mspqev6obtblaThZkN YZkRZs5USg3WJYyfKspVq ViQOZ0QaK7XPW1cWZjnQ7 roCthzugzwN2f Oyc+Q54pyV7qVEH3YJW7y hnyXQRwasTlGW41ET38J2 RyPjwvdGFibGU+PGRpdiB brQhnWC0eBtAt e6bto5SdCJolD5CwBIDeP NzaPej8MAGtSZH8wUS4pI 4xJIRpGBdom4I1qRN0I8X lnnGdwg8bt5mg YATkDPtyL67bzDOts2A3C UVbfMF8CVBaaSnfPzYxrD 93Oyc+WFFzoJtqa6RaDot yu1qbr0aetJc5 OoFcTJIfaiTikVijLVF8k 8DiFw28C73zOImeSAPnGB CvMQXrHWLfbRuydp3vsQ2 wIi8+PGNvbCB3 pQB4mO2qYBTlQvB4QPbbL 319TcYzcOAtCwiff0vpl1 kcfXn2LhKpGIQfvwTaoTs yTVQ7q3CrAe19 N75yQIfiEJAdEKYgMMJuO UOncWevtl2cmK6eCg5+PC 0pl6lwgv30hI65oRZ+PHR lEAV7wDznTIsg AZBegN1dPPdzMuG8VTPoT jXchV92fNNhTCtyLs3ceZ cusVleOL0fLLIqckoaf13 9MdRkj0moOMCn aWSrSZzdETO2L19xw8H0C IMsMLCfKJH7cQB9zU0wsO lnbjogbGVmdDsgdmVydGl kIVyqARxqK731 IHRvcDsnPlBhdGllbnQgT fZmOVx8Z7ViMzl7KTKacC oiQQ9ycNRpSJlsDw2mmOz klPxqXO3wSHEi qwavr450YaIid6udYUHaw SUzIUmqZEL4F59vu1E6SN KrIMKrSRO0dIV1jU2axVi nbjogbGVmdDsg raYovRlqTUxjVKczS147A HRvcDsnPkJpcnRoIERhdG E7AU71LN29bYOca8M5yCZ 8G7LtRXCionpk sqbdqRX1GOHbWXMrlN85Z n9tcWegRr0wVMJkDKT6HW ZsyYWsL5ZavK5oByXfZAH nXXNfC7KxxHFn QRzkI378TFhyBfY3MVKte eWuV8ClPADrqKfaVtY8p0 E2Dc8UX5Y5AC13WD07gZY kv5E6mGU5R2Bu CUIakkdscbqqpJV9UAWoN ZSqyO06Yp5oyLhqUk4iWV NlNBJ0GLPxtODaZ0PyfM1 yOiAjMDAwMDAw T2MdeNYhQMveJ841MTsoU rR1TKIpvtDaP0UpPBNmuL pcEpP8f9S7Ci8QDFh8LK8 7KL86fXEuk4V5 zUG1I6OeOTRheypmarclh LX9TODhQNUbeK64Pv5ryW mmKs6oERFlRCK4PNVahOM qF4GehV2vJjMm RPXlYWMvE8WwhJPmTKvbA 773OWwvCcZ2ZNOqtiQdB1 RbNOWkbUpeYyY4t4Z8Tx2 TUCBiIW09ZRT4 cGA9RH32BV37V1OrLftlx GFibGU+PHRhYmxlIHdpZH RoPScxMDAlJyBzdHlsZT0 pZy0iSUCaISIm oKrrcCJmWcTzh2iuRDDjZ ShlPW9mzIeqR2CrmWB9FM Ehj8l2To36M24qW8IzuQZ +SFCelMX0gIZ8 mD5iFlVpAcT0RLcaB735Z yQtaXMeVdbin3hzn9lknH f9TcE0UUZttzCbvUtgKQT 7d8YxHc94W66n IHdpZHRoPSIxNSUiIHZhb Rrmkc3wvO9bFz7+PGNvbC G7gNE2eI0vTmPuSpL9ZLd vX035WtBuwYZy Rwxgz8bti0xjcXg3LxLsW XIbqkRklJasCGR7n9RuEi 74A2AhxVcnj5StDbd3om7 1yTHfs6D4rJG9 R7YzPBQhzauxgVFlfWaiL S8lANKzluecUSFvpV9lJT ZtP0q3OfYoHxF2JLqyN8Q sjpX6XIJgfUMg YTlpNEZ9Y48zb3L2UZJvQ HGlDJJ5tFP2kU6kdPbisr ogbGVmdDsgdmVydGljYWw aYCxzD400WFIn eVpuTMYokO8uAQGjqIAtz JyiEH2xKSRqoqcsGf7BO6 VOWklFLCBTSEVMQlkgUjw vdGQ+PHRkIHN0 iYcaFGvaUFAgrF8dSHByE 6m2QzEoClH1CEgrR1ZyZN AzvomgSt50xW7kIyAvMlB 2BQihP8IdszY5 KQQtyNVxLRwsUTC3J71wq 8H1LUJtHTWtIMG6bZM9eV 1hbGlnbjogbGVmdDsgdmV ydGljYWwtYWxp R593PHTnfEbwTeU5IfR6V fTzPLH0O7LyBpm8SMHftW ewIB2npBNjNEstVl5wxHq rjHcnII8hUJEs ruebFCPyyG1wHJYrwQKpd GbqFC5lLWOloxczy324Dx KnDCF3JPHwpSVqQ3KtiL0 yOiAjMDAwMDAw R6TjqOHbBXtpZ316XIneX lJ2TPSztlOdN4ZjQLQudB tmWeK9g8J2Cl2oOKNKUWZ yczwvdGQ+PHRk ZOO3oZhfNQewGLHzvE1qE BPmQ6w9HlIkZqX6OJsdY6 QpXBFxdpweCw10rV4dAfA wNhO1ALqqJ8Mu jgD1GXRpiNLcFQhjXSC5G 57ov7O8CBBvWXIyOJC2aO P5hH6vqZgdhgeypKTrnRl gdmVydGljYWwt QGbpP369EHTuxEsqUtKkf WFsZTwvdGQ+LSJvBHX1kX grSLzdXKCoeJ3wWLLoA2v 9UxRiWrP9ZJsy O4KgGIHszxcoPx26cM1jY cTlMcW0GIwpN3TyxrV6JM AbjLAlJQlmLDA8C78jp3V 6EWMrSTHcSYV7 wLW0jI0glJcbwzewyYSed DsgdmVydGljYWwtYWxpZ2 62QVFnoRxaSsIcCLGqKR2 jeTwvdGQ+PC90 xj88I6GqRkazKdx7LKDiZ QZ1aGI1uH7wSSPuLZnmr8 U9xNO5T2CuirBcqb7rm0p wKKNqCCitF81h kEOvz9W9XZSmhRW0HFBlv JbdHoPioP11Pcq+PGNvbG qpj1YxGeuwm9opr5xzxZz 9IjMwJSIgdmFs sAsxMXD5q7RgXn97Q89pJ HdpZHRoPSIzMCUiIHZhbG shsg3qjU0tRe8+PGNvbCB 7lQX0eI3aJwIi AkB5XHtyK340AjWnmNCrA huap3obv5aqbKc8KeCcLB EjmuKcrJfxTKE2p6LpJu4 1I9RraDnzn1Pa Rdt2gm33uGQbw9K1zHF3W 3BhZGRpbmctbGVmdDogMC 0iZCYehhkgYGKisI6qLCE nA6x9JsVzZyS9 RTmtA9NnmkD2JOVxgCOdW VRyuEPToO6kerjwz7wkbv gySqIuUGRaHPp2ORj9EIX saWduOiBsZWZ0 NoX6GFV1yILavP8guQypz lvevY6bJwe+UQi5p1lanE LlLI8dsKU0FW98QM16wGF jb9V4eKI0H0Cg AXPtiemfoqssyZN9AKJaV NWrzO48Th7ybVlfFi9uGJ DtJHO1VPAvkNNrQ9DonP3 yOiAjMDAwMDAw O7YzsQUfNEsmQ196JPmbB wB9WYBrboMsS0JmIWRlbR beRqZ3r3N8Ft6CSH70PH4 8BT43hMAla4H1 lPL6X1PoXNHwgenztwudq TD6HNYjGOIwfQ76Cs3waU lwTx2iGZJaCFC3DYTdiBD xS4ZboI5dYkVx LKFoOFXfG6SxqFCvWRohY 415CNsySoJ8LUMxsiDxO1 CuAGZueJxfKhT6x5K3Mr0 [id number] sPUlc8M0oTS7J7KvNZMof pozuyflfMR3ETTlDXLfwY 76Bc0snUthJq0mBYByATY 1KRZeaFQiX9Jn vR2lEfQyAJKbBPEzO5Dam NXlRIrnM919DCbpKwM2NL QtdjEhP8DqCIHxvXgvJgV 8e2F4Nw5CYQsm ins1E0MvZykimSV+PC90Y REiVA06vEEadSUdn1gmbQ z2AiRwCATiBCA0wPcqMPs jz6VjBBCoV83a bGFw (more content not included)... Normal [facility] Consent for Treatmenton 11-27 Consent for Treatment [id number] .[id number]:127 Normal [facility] ED Clinical Summaryon 2021 ED Clinical Summary [place] [id number] ED Clinical Summary Person Information Name: APRIL PUENTE Bib Gaitan/[facility] Age: 21 Years : 2000 Sex: Female Language: [place] Islander PCP: Kathy Kraus NP Marital Status: Single MRN: Visit Id: Visit Reason: Ear pain; RT SIDE EXTREME EAR PAIN W/ FACIAL SWELLING Speciality: Acuity: 5 Enc Type: Emergency Med Service: Emergency Arrival: 12/07/2021 19:17:33 Discharge: 12/07/2021 19:55:59 LOS: 000 00:38 Checkin: 12/07/2021 19:17:33 Checkout: 12/07/2021 19:55:59 Dispo Type: Home (Routine DC) EVENTS: Event Name Event Status Request Date/Time Start Date/Time Complete Date/Time Arrive Complete 12/07/2021 19:17:33 12/07/2021 19:17:33 12/07/2021 19:17:33 Document Home Meds Request 12/07/2021 19:17:33 Triage Complete 12/07/2021 19:17:33 12/07/2021 19:22:18 12/07/2021 19:22:18 Bed Assign Complete 12/07/2021 19:19:24 12/07/2021 19:19:24 12/07/2021 19:19:24 Dr Exam Complete 12/07/2021 19:19:24 12/07/2021 19:32:00 12/07/2021 19:32:00 RN Exam Complete 12/07/2021 19:19:24 12/07/2021 19:29:58 12/07/2021 19:29:58 Registration Complete 12/07/2021 19:32:00 12/07/2021 19:50:59 12/07/2021 19:50:59 Meds Admin Complete 12/07/2021 19:42:24 12/07/2021 19:54:36 Discharge Complete 12/07/2021 19:44:02 12/07/2021 19:56:19 12/07/2021 19:56:19 Reg Complete Request 12/07/2021 19:50:59 Reg Bed Request Complete 12/07/2021 19:50:59 12/07/2021 19:50:59 12/07/2021 19:50:59 Transfer Complete 12/07/2021 19:56:19 12/07/2021 19:56:19 12/07/2021 19:56:19 ADDRESS: [address] [place] [address] [address] [facility] [id number] PHYS DOC NOTES: MEDICAL INFORMATION: Prescriptions Given: New Medications Printed Prescriptions amoxicillin-clavulana te (Augmentin 875 mg-125 mg Tab) 1 Tablets By Mouth every 12 hours for 10 Days. Refills: 0. Medications to Continue Taking That Have Changed Printed Prescriptions START: naproxen (Naprosyn 500 mg Tab) 1 Tablets By Mouth 2 times a day as needed for pain. Refills: 0. Other Medications START: naproxen (Naprosyn) By Mouth 2 times a day. Medications to Continue with No Changes Other Medications ciprofloxacin-dexamet hasone otic (ciprofloxacin-dexame thasone 0.3%-0.1% Otic Susp) 4 Drops Right ear 2 times a day for 7 Days. Refills: 0. PATIENT EDUCATION INFORMATION: Instructions: Cellulitis, Adult, Fosl-oy-Vqom Follow up: With: Address: When: Kathy Kraus [address] [place], [place] [phone] Business (1) In 3 days 12/10/2021 Comments: Take the antibiotics as prescribed you have completed the course. Please follow-up with your primary care doctor next 2 to 3 days. You can take the naproxen every 12 hours as needed for pain you can also take the Dairy every 6 hours as needed for pain. Please return the ED for any new or worsening symptoms. DIAGNOSIS: Cellulitis of face Normal [facility] ED Note-Physicianon 12-08-19 22 ED Note-Physician Basic Information Time Seen: Virginie Anthony DO 12/07/2021 19:32 Chief Complaint pt reports being here yesterday prescribed ear drops for right ear. pain is worsening today with facial swelling. History of Present Illness Patient is a 21-year-old female with no past medical history presenting to the ED for evaluation of right-sided facial pain. Patient was seen here yesterday prescribed Ciprodex for a right otitis externa. Woke up today with swelling in her face. Patient notes pain especially with chewing, denies any fevers, chills, nausea, vomiting, dizziness or lightheadedness. Review of Systems General: Denied fever, chills, weight loss HEENT: Denied Congestion, rhinorrhea, sore throat, + right ear, right facial pain Cardiac: Denied Chest pain, palpitations, dizziness/lightheaded ness Respiratory: Denied Dyspnea, cough Abdominal: Denied abdominal pain, nausea, vomiting, diarrhea, constipation : Denied dysuria, hematuria Extremities: Denied leg swelling, leg pain, calf tenderness Neuro: Denied Focal neurologic deficits, vision changes, difficulty with speech Integumentary: Denied rashes or lesions Physical Exam Vitals & Measurements T: 36.8 ?C(Oral) HR: 114(Peripheral) RR: 16 BP: 143/92 SpO2: 98% HT: 168 cm HT: 168.0 cm WT: 107 kg WT: 107.0 kg BMI: 37.91 General: Well developed, non toxic appearing, no acute distress HEENT: Head atraumatic, Mucosa moist, hearing grossly normal, right facial swelling with small amount of erythema, no trismus, no dental abnormalities, debris noted in the right ear canal, left ear canal patent Neck: No JVD, tracheal deviation Cardiac: Regular rate, rhythm, no murmurs, or gallops, 2+ radial pulses Respiratory: Lungs clear to auscultation B/L, normal respiratory effort Abdomen: Soft non tender, no rebound or guarding, no peritoneal signs Extremities: No edema noted in the LE B/L, no tenderness to palpation Neurologic: Alert and oriented, speech clear Skin: No rashes or lesions Psych: Appropriate mood and behavior Medical Decision Making Patient is a 21-year-old female presenting to the ED for evaluation of right ear pain, right-sided facial swelling. Patient's mildly tachycardic on arrival otherwise in no acute distress. Does have right-sided facial swelling consistent with cellulitis. Patient is given a dose of Augmentin in the ED in addition to naproxen she is. She did drive herself here. She is discharged home with naproxen, short course of pain medication. She is to follow-up with her primary care doctor in the next 2 to 3 days. She is to return the ED for any new or worsening symptoms. Assessment/Plan Cellulitis of face (L03.211: Cellulitis of face) Orders: acetaminophen-hydroco done, 1 EA, Tab, Oral, Once, Stop date 12/07/21 19:42:00 EDT, STAT, Start date 12/07/21 19:42:00 EDT amoxicillin-clavulana te, 1 tab(s), Tab, Oral, Once, Stop date 12/07/21 19:41:00 EDT, STAT, Start date 12/07/21 19:41:00 EDT amoxicillin-clavulana te, 1 tab(s), Oral, q12hr for 10 day(s), 20 tab(s), Refill(s) 0 naproxen, 500 mg = 1 tab(s), Oral, BID, PRN for pain, # 20 tab(s), Refills(s) 0 naproxen, 500 mg = 2 tab(s), Tab, Oral, Once, Stop date 12/07/21 19:42:00 EDT, STAT, Start date 12/07/21 19:42:00 EDT, 12/07/21 19:42:00 EDT Disposition Plan Discharge Prescription List Prescriptions Augmentin 875 mg-125 mg Tab, 1 tab(s), Oral, q12hr Naprosyn 500 mg Tab, 500 mg= 1 tab(s), Oral, BID, PRN Follow-up With When Contact Information Kathy Kraus In 3 days 12/10/2021 EDT [address] [place] [address] [phone] Business (1) Additional Instructions: Take the antibiotics as prescribed you have completed the course. Please follow-up with your primary care doctor next 2 to 3 days. You can take the naproxen every 12 hours as needed for pain you can also take the Dairy every 6 hours as needed for pain. Please return the ED for any new or worsening symptoms. Patient Education Cellulitis, Adult, Fand-ro-Eoyg Problem List/Past Medical History Ongoing Chronic diarrhea Duodenal ulcer Fatty liver Fatty liver disease, nonalcoholic Gastroenteritis History of COVID-19 Morbid obesity with BMI of 40.0-44.9, adult Nausea and vomiting Nausea with vomiting Non-smoker Smoker Sore throat Historical Anxiety Left upper quadrant pain Strep throat Procedure/Surgical History bilateral tubes in ears (2003). Medications Inpatient Augmentin 875 mg-125 mg Tab, 1 tab(s), Oral, Once naproxen 250 mg Tab, 500 mg= 2 tab(s), Oral, Once TO GO acetaminophen-hydroco done 325 mg - 5 mg, 1 EA, Oral, Once Home Augmentin 875 mg-125 mg Tab, 1 tab(s), Oral, q12hr ciprofloxacin-dexamet hasone 0.3%-0.1% Otic Susp, 4 drop(s), Ear-Right, BID Naprosyn, Oral, BID Naprosyn 500 mg Tab, 500 mg= 1 tab(s), Oral, BID, PRN Allergies No Known Allergies No Known Medication Allergies Social History Alcohol - Denies Alcohol Use, 03/08/2020 Substance Abuse - High Risk, 10/02/2020 Cu (more content not included)... Normal [facility] Comment on above: Result Comment: Elec tronically Signed By: Virginie Anthony DO\.br\Date and Time Signed: 12/07/21 19:59 EDT ED Patient Education Noteon 12-07-2021 ED Patient Education Note Infectious Disease Cellulitis, Adult Cellulitis is a skin infection. The infected area is often warm, red, swollen, and sore. It occurs most often in the arms and lower legs. It is very important to get treated for this condition. What are the causes? This condition is caused by bacteria. The bacteria enter through a break in the skin, such as a cut, burn, insect bite, open sore, or crack. What increases the risk? This condition is more likely to occur in people who: ? Have a weak body defense system (immune system). ? Have open cuts, travis, bites, or scrapes on the skin. ? Are older than 60 years of age. ? Have a blood sugar problem (diabetes). ? Have a long-lasting (chronic) liver disease (cirrhosis) or kidney disease. ? Are very overweight (obese). ? Have a skin problem, such as: ? Itchy rash (eczema). ? Slow movement of blood in the veins (venous stasis). ? Fluid buildup below the skin (edema). ? Have been treated with high-energy rays (radiation). ? Use IV drugs. What are the signs or symptoms? Symptoms of this condition include: ? Skin that is: ? Red. ? Streaking. ? Spotting. ? Swollen. ? Sore or painful when you touch it. ? Warm. ? A fever. ? Chills. ? Blisters. How is this diagnosed? This condition is diagnosed based on: ? Medical history. ? Physical exam. ? Blood tests. ? Imaging tests. How is this treated? Treatment for this condition may include: ? Medicines to treat infections or allergies. ? Home care, such as: ? Rest. ? Placing cold or warm cloths (compresses) on the skin. ? Hospital care, if the condition is very bad. Follow these instructions at home: Medicines ? Take weon-pda-gulngbc and prescription medicines only as told by your doctor. ? If you were prescribed an antibiotic medicine, take it as told by your doctor. Do not stop taking it even if you start to feel better. General instructions ? Drink enough fluid to keep your pee (urine) pale yellow. ? Do not touch or rub the infected area. ? Raise (elevate) the infected area above the level of your heart while you are sitting or lying down. ? Place cold or warm cloths on the area as told by your doctor. ? Keep all follow-up visits as told by your doctor. This is important. Contact a doctor if: ? You have a fever. ? You do not start to get better after 1?2 days of treatment. ? Your bone or joint under the infected area starts to hurt after the skin has healed. ? Your infection comes back. This can happen in the same area or another area. ? You have a swollen bump in the area. ? You have new symptoms. ? You feel ill and have muscle aches and pains. Get help right away if: ? Your symptoms get worse. ? You feel very sleepy. ? You throw up (vomit) or have watery poop (diarrhea) for a long time. ? You see red streaks coming from the area. ? Your red area gets larger. ? Your red area turns dark in color. These symptoms may represent a serious problem that is an emergency. Do not wait to see if the symptoms will go away. Get medical help right away. Call your local emergency services (911 in the [place] Do not drive yourself to the hospital. Summary ? Cellulitis is a skin infection. The area is often warm, red, swollen, and sore. ? This condition is treated with medicines, rest, and cold and warm cloths. ? Take all medicines only as told by your doctor. ? Tell your doctor if symptoms do not start to get better after 1?2 days of treatment. This information is not intended to replace advice given to you by your health care provider. Make sure you discuss any questions you have with your health care provider. Document Released: 10/01/2008 Document Revised: 09/04/2018 Document Reviewed: 09/04/2018 Elsevier Patient Education ? 2019 [employer]. Normal [facility] ED Patient Summaryon 022 ED Patient Summary [address] [address] Patient Discharge Instructions Person Information Name: APRIL PUENTE Age: 21 Years Arrival Date: 12/07/2021 19:17:33 Discharge Diagnosis: Cellulitis of face Primary Care Physician: Kathy Kraus NP Provider Information Primary Provider: Virginie Anthony DO Advanced Veterinary Radiologist:None The exam and treatment you received in the Emergency Department were for an urgent problem and are not intended as complete care. It is important that you follow up with a doctor, nurse practitioner, or physician?s first assistant for ongoing care. If your symptoms become worse or you do not improve as expected and you are unable to reach your usual health care provider, you should return to the Emergency Department. We are available 24 hours a day. APRIL PUENTE has been given the following list of patient education materials, prescriptions and follow-up instructions: Follow-up Instructions: With: Address: When: Kathy Kraus [address] [place], [place] [phone] Business (1) In 3 days 12/10/2021 Comments: Take the antibiotics as prescribed you have completed the course. Please follow-up with your primary care doctor next 2 to 3 days. You can take the naproxen every 12 hours as needed for pain you can also take the Dairy every 6 hours as needed for pain. Please return the ED for any new or worsening symptoms. In the event that this physician does not participate in your insurance network, please consult with your insurance company to find a nearby participating provider. Patient Education Materials: Cellulitis, Adult, Urrh-mt-Kerf A MESSAGE TO ALL PATIENTS REGARDING OPIOIDS PRESCRIPTION OPIOIDS: WHAT YOU NEED TO KNOW Prescription opioids can be used to help relieve fxktrmku-gm-gmqivj pain and are often prescribed following a surgery or injury, or for certain health conditions. These medications can be an important part of the treatment but also come with serious risks. It is important to work with your healthcare provider to make sure you are getting the safest, most effective care. WHAT ARE THE RISKS AND SIDE EFFECTS OF OPIOID USE? Prescription opioids carry serious risks of addiction and overdose, especially with prolonged use. An opioid overdose, often marked by slowed breathing, can cause sudden . The use of prescription opioids can have a number of side effects as well, even when taken as directed: ? Tolerance?meaning you might need to take more of the medication for the same pain relief ? Physical dependence?meaning you have symptoms of withdrawal when a medication is stopped ? Increased sensitivity to pain ? Constipation ? Nausea, vomiting, and dry mouth ? Sleepiness and dizziness ? Confusion ? Depression ? Low levels of testosterone that can result in lower sex drive, energy, and strength ? Itching and sweating RISKS ARE GREATER WITH: ? History of drug misuse, substance use disorder, or overdose ? Mental health conditions (such as depression or anxiety) ? Sleep apnea ? Older age (65 years and older) ? Avoid alcohol while taking prescription opioids. Also, unless specifically advised by your health care provider, medications to avoid include: ? Benzodiazepines (such as Xanax or Valium) ? Muscle relaxants (such as Soma or Flexeril) ? Hypnotics (such as Ambien or Lunesta) ? Other prescription opioids KNOW YOUR OPTIONS Talk to your health care provider about ways to manage your pain that don?t involve prescription opioids. Some of these options may actually work better and have fewer risks and side effects. Options may include: ? Pain relievers such as acetaminophen, ibuprofen, and naproxen ? Some medication that are also used for depression or seizures ? Physical therapy and exercise ? Cognitive behavioral therapy, a psychological, goal-directed approach, in which patients learn how to modify physical, behavioral, and emotional triggers of pain and stress. IF YOU ARE PRESCRIBED OPIOIDS FOR PAIN: ? Never take opioids in greater amounts or more often than prescribed. ? Follow up with your primary health care provider. o Work together to create a plan on how to manage your pain. o Talk about ways to help manage your pain that don?t involve prescription opioids. o Talk about any and all concerns and side effects. ? Help prevent misuse and abuse o Never sell or share prescription opioids. o Never use another person?s prescription opioids. ? Store prescription opioids in a secure place and out of reach of others (this may include visitors, children, friends, and family). ? Safely dispose of unused prescription opioids: Find your community drug take-back program or your pharmacy mail-back program, or flush them down the toilet, following guidance from the Food and Drug Administrati (more content not included)... Normal [facility] Consent for Treatmenton 11-27 Consent for Treatment [id number] .00CD:127 Normal [facility] Discharge Instructionson Discharge Instructions [id number] .[id number]:127 [facility] ED Clinical Summaryon 2021 ED Clinical Summary [place] [address] ED Clinical Summary Person Information Name: APRIL PUENTE Kandy/[facility] Age: 21 Years : 2000 Sex: Female Language: [place] Islander PCP: Kathy Kraus NP Marital Status: Single Visit Id: Visit Reason: Ear pain; RT EAR PAIN, FACIAL SWELLING Speciality: Acuity: 5 Enc Type: Emergency Med Service: Emergency Arrival: 12/06/2021 07:56:28 Discharge: 12/06/2021 08:13:19 LOS: 000 00:17 Checkin: 12/06/2021 07:56:28 Checkout: 12/06/2021 08:13:19 Dispo Type: Home (Routine DC) EVENTS: Event Name Event Status Request Date/Time Start Date/Time Complete Date/Time Arrive Complete 12/06/2021 07:56:28 12/06/2021 07:56:28 12/06/2021 07:56:28 Document Home Meds Request 12/06/2021 07:56:28 Triage Complete 12/06/2021 07:56:28 12/06/2021 08:00:43 12/06/2021 08:00:43 Bed Assign Complete 12/06/2021 07:57:53 12/06/2021 07:57:53 12/06/2021 07:57:53 Dr Exam Complete 12/06/2021 07:57:53 12/06/2021 07:58:04 12/06/2021 07:58:04 RN Exam Complete 12/06/2021 07:57:53 12/06/2021 08:04:13 12/06/2021 08:04:13 Registration Request 12/06/2021 07:58:04 Dr Exam Complete 12/06/2021 08:00:15 12/06/2021 08:00:15 12/06/2021 08:00:15 Discharge Complete 12/06/2021 08:07:10 12/06/2021 08:13:25 12/06/2021 08:13:25 Transfer Complete 12/06/2021 08:13:25 12/06/2021 08:13:25 12/06/2021 08:13:25 ADDRESS: [address] [place] [address] [address] [facility] [id number] PHYS DOC NOTES: MEDICAL INFORMATION: Prescriptions Given: New Medications [id number], [address] [place], [place] [phone], [phone] ciprofloxacin-dexamet hasone otic (ciprofloxacin-dexame thasone 0.3%-0.1% Otic Susp) 4 Drops Right ear 2 times a day for 7 Days. Refills: 0. Medications to Continue with No Changes Other Medications fluticasone nasal (fluticasone 0.05 mg/inh Nasal Mcdonald) 1 Sprays Nasal Inhalation 2 times a day. each nostril. Refills: 5. promethazine (promethazine 25 mg Tab) 1 Tablets By Mouth 2 times a day as needed as needed for nausea/vomiting. Refills: 1. PATIENT EDUCATION INFORMATION: Instructions: Otitis Externa Follow up: With: Address: When: Kathy Kraus [address] [place], [place] [phone] Business (1) In 3 days 12/09/2021 DIAGNOSIS: Otitis externa Normal [facility] ED Note-Physicianon 12-07-19 ED Note-Physician Basic Information Time Seen: Carlos Han PA-C 12/06/2021 07:57 Chief Complaint Pt reports right ear pain for 2-3 days. hx of ear infections. History of Present Illness 21-year-old female comes to the ED for evaluation of ear pain. She has a mild pain to the right ear for last couple days, worsening this morning. No drainage. No fever, chills, nausea, vomiting. No prior treatments. No other complaints or concerns. Review of Systems A 10 point review of systems is negative except as noted above. Medical and Surgical History: Reviewed and noted Social history: Lives at home Tobacco: Denies Physical Exam Vitals & Measurements T: 36.7 ?C(Oral) HR: 86(Peripheral) RR: 16 BP: 121/80 SpO2: 100% HT: 168.0 cm HT: 168 cm WT: 107.0 kg WT: 107 kg BMI: 37.91 Nurses notes and vital signs reviewed and patient is not hypoxic. General: The patient appears well, resting comfortably. Skin: Warm, dry. Head: Atraumatic. Neck: No JVD. Eye: Normal conjunctiva. Saw cerumen to the left ear. No acute findings. TM is clear. External canals clear. Right external canal is tender erythematous with debris. The TM is well visualized and is within normal limits. There is no pre or postauricular tenderness, erythema lymphadenopathy. Ears, Nose, Mouth, and Throat: Moist mucous membranes. Cardiovascular: Strong distal pulses. Chest wall: Respiratory: Respirations are nonlabored. Back: Normal range of motion. Musculoskeletal: Normal ROM with no gross deformity. Gastrointestinal: Urological: Neurological: Awake and alert. No focal deficits. Follows commands. Psychiatric: Cooperative. Medical Decision Making Patient with right otitis externa. No associate otitis media. She is started on topical antibiotic drops and she is discharged home to follow-up with her PCP. Patient was encouraged to return to the ED if symptoms worsen or change. Assessment/Plan Otitis externa (H60.90: Unspecified otitis externa, unspecified ear) Orders: ciprofloxacin-dexamet hasone otic, 4 drop(s), Ear-Right, BID for 7 day(s), 10 mL, Refill(s) 0, [id number], 168, cm, 12/06/21 8:00:00 EDT, Height/Length Dosing, 107, kg, 12/06/21 8:00:00 EDT, Weight Dosing Disposition Plan Patient Discharge Condition Disposition: Discharged home Condition: Improved and stable Counseled: Patient and/or family were counseled to workup, results, treatment plan and follow-up recommendations Discharge Prescription List Prescriptions ciprofloxacin-dexamet hasone 0.3%-0.1% Otic Susp, 4 drop(s), Ear-Right, BID Follow-up With When Contact Information Kathy Kraus In 3 days 12/09/2021 EDT [address] [place] [address] [phone] Business (1) Additional Instructions: Patient Education Otitis Externa Attestation Patient seen and evaluated by the physician first assistant. Attending physician was present in the emergency department and supervised care. This visit was performed by both the physician and an APC. I performed all aspects of the MDM as documented. This report was transcribed using voice recognition software. Every effort was made to ensure accuracy, however, inadvertently computerized net architect mistakes may be present. Appropriate healthcare PPE was used in evaluating this patient. The patient was placed in a mask. The healthcare provider was wearing mask, gloves, and utilizing proper hand hygiene. All equipment was properly cleansed. Problem List/Past Medical History Ongoing Chronic diarrhea Duodenal ulcer Fatty liver Fatty liver disease, nonalcoholic Gastroenteritis History of COVID-19 Morbid obesity with BMI of 40.0-44.9, adult Nausea and vomiting Nausea with vomiting Non-smoker Sore throat Historical Anxiety Left upper quadrant pain Strep throat Procedure/Surgical History bilateral tubes in ears (2003). Medications Inpatient No active inpatient medications Home ciprofloxacin-dexamet hasone 0.3%-0.1% Otic Susp, 4 drop(s), Ear-Right, BID fluticasone 0.05 mg/inh Nasal Mcdonald, 1 spray(s), Nasal, BID, 5 refills promethazine 25 mg Tab, 25 mg= 1 tab(s), Oral, BID, PRN, 1 refills Allergies No Known Allergies No Known Medication Allergies Social History Alcohol - Denies Alcohol Use, 03/08/2020 Substance Abuse - High Risk, 10/02/2020 Current, Marijuana, 1-2 times per week, 10/02/2020 Tobacco - Denies Tobacco Use, 03/08/2020 Never (less than 100 in lifetime) Tobacco Use:. Never Smokeless Tobacco Use:. Household tobacco concerns: No., 06/15/2021 Never (less than 100 in lifetime) Tobacco Use:. Never Smokeless Tobacco Use:., 02/23/2021 Family History Family history is negative Lab Results No qualifying data available. Diagnostic Results No qualifying data available. [facility] Comment on above: Result Comment: Elec tronically Signed By: Carlos Han PA-C\.br\Date and Time Signed: 12/06/21 08:20 EDT\.br\Electronically Co-Signed By: Jose Duran DO\.br\Date and Time Co-Signed: 12/06/21 08:50 EDT ED Patient Education Noteon 12-06-2021 ED Patient Education Note Infectious Disease Otitis Externa Otitis externa is an infection of the outer ear canal. The outer ear canal is the area between the outside of the ear and the eardrum. Otitis externa is sometimes called swimmer's ear. What are the causes? Common causes of this condition include: ? Swimming in dirty water. ? Moisture in the ear. ? An injury to the inside of the ear. ? An object stuck in the ear. ? A cut or scrape on the outside of the ear. What increases the risk? You are more likely to develop this condition if you go swimming often. What are the signs or symptoms? The first symptom of this condition is often itching in the ear. Later symptoms of the condition include: ? Swelling of the ear. ? Redness in the ear. ? Ear pain. The pain may get worse when you pull on your ear. ? Pus coming from the ear. How is this diagnosed? This condition may be diagnosed by examining the ear and testing fluid from the ear for bacteria and funguses. How is this treated? This condition may be treated with: ? Antibiotic ear drops. These are often given for 10?14 days. ? Medicines to reduce itching and swelling. Follow these instructions at home: ? If you were prescribed antibiotic ear drops, use them as told by your health care provider. Do not stop using the antibiotic even if your condition improves. ? Take ecgf-wub-wjetiwn and prescription medicines only as told by your health care provider. ? Avoid getting water in your ears as told by your health care provider. This may include avoiding swimming or water sports for a few days. ? Keep all follow-up visits as told by your health care provider. This is important. How is this prevented? ? Keep your ears dry. Use the corner of a towel to dry your ears after you swim or bathe. ? Avoid scratching or putting things in your ear. Doing these things can damage the ear canal or remove the protective wax that lines it, which makes it easier for bacteria and funguses to grow. ? Avoid swimming in lakes, polluted water, or pools that may not have enough chlorine. Contact a health care provider if: ? You have a fever. ? Your ear is still red, swollen, painful, or draining pus after 3 days. ? Your redness, swelling, or pain gets worse. ? You have a severe headache. ? You have redness, swelling, pain, or tenderness in the area behind your ear. Summary ? Otitis externa is an infection of the outer ear canal. ? Common causes include swimming in dirty water, moisture in the ear, or a cut or scrape in the ear. ? Symptoms include pain, redness, and swelling of the ear. ? If you were prescribed antibiotic ear drops, use them as told by your health care provider. Do not stop using the antibiotic even if your condition improves. This information is not intended to replace advice given to you by your health care provider. Make sure you discuss any questions you have with your health care provider. Document Released: 04/15/2006 Document Revised: 09/19/2018 Document Reviewed: 09/19/2018 Elsevier Patient Education ? 2020 [employer] Normal [facility] ED Patient Summaryon 022 ED Patient Summary [place] [id number] Patient Discharge Instructions Person Information Name: APRIL PUENTE Age: 21 Years Arrival Date: 12/06/2021 07:56:28 Discharge Diagnosis: Otitis externa Primary Care Physician: Kathy Kraus NP Provider Information Primary Provider: Jose Duran DO Advanced Veterinary Radiologist:Carlos Han PA-C The exam and treatment you received in the Emergency Department were for an urgent problem and are not intended as complete care. It is important that you follow up with a doctor, nurse practitioner, or physician?s first assistant for ongoing care. If your symptoms become worse or you do not improve as expected and you are unable to reach your usual health care provider, you should return to the Emergency Department. We are available 24 hours a day. APRIL PUENTE has been given the following list of patient education materials, prescriptions and follow-up instructions: Follow-up Instructions: With: Address: When: Kathy Kraus [address] [place], [place] [id number] [phone] Business (1) In 3 days 12/09/2021 In the event that this physician does not participate in your insurance network, please consult with your insurance company to find a nearby participating provider. Patient Education Materials: Otitis Externa A MESSAGE TO ALL PATIENTS REGARDING OPIOIDS PRESCRIPTION OPIOIDS: WHAT YOU NEED TO KNOW Prescription opioids can be used to help relieve spcnygrs-qm-loctcc pain and are often prescribed following a surgery or injury, or for certain health conditions. These medications can be an important part of the treatment but also come with serious risks. It is important to work with your healthcare provider to make sure you are getting the safest, most effective care. WHAT ARE THE RISKS AND SIDE EFFECTS OF OPIOID USE? Prescription opioids carry serious risks of addiction and overdose, especially with prolonged use. An opioid overdose, often marked by slowed breathing, can cause sudden . The use of prescription opioids can have a number of side effects as well, even when taken as directed: ? Tolerance?meaning you might need to take more of the medication for the same pain relief ? Physical dependence?meaning you have symptoms of withdrawal when a medication is stopped ? Increased sensitivity to pain ? Constipation ? Nausea, vomiting, and dry mouth ? Sleepiness and dizziness ? Confusion ? Depression ? Low levels of testosterone that can result in lower sex drive, energy, and strength ? Itching and sweating RISKS ARE GREATER WITH: ? History of drug misuse, substance use disorder, or overdose ? Mental health conditions (such as depression or anxiety) ? Sleep apnea ? Older age (65 years and older) ? Avoid alcohol while taking prescription opioids. Also, unless specifically advised by your health care provider, medications to avoid include: ? Benzodiazepines (such as Xanax or Valium) ? Muscle relaxants (such as Soma or Flexeril) ? Hypnotics (such as Ambien or Lunesta) ? Other prescription opioids KNOW YOUR OPTIONS Talk to your health care provider about ways to manage your pain that don?t involve prescription opioids. Some of these options may actually work better and have fewer risks and side effects. Options may include: ? Pain relievers such as acetaminophen, ibuprofen, and naproxen ? Some medication that are also used for depression or seizures ? Physical therapy and exercise ? Cognitive behavioral therapy, a psychological, goal-directed approach, in which patients learn how to modify physical, behavioral, and emotional triggers of pain and stress. IF YOU ARE PRESCRIBED OPIOIDS FOR PAIN: ? Never take opioids in greater amounts or more often than prescribed. ? Follow up with your primary health care provider. o Work together to create a plan on how to manage your pain. o Talk about ways to help manage your pain that don?t involve prescription opioids. o Talk about any and all concerns and side effects. ? Help prevent misuse and abuse o Never sell or share prescription opioids. o Never use another person?s prescription opioids. ? Store prescription opioids in a secure place and out of reach of others (this may include visitors, children, friends, and family). ? Safely dispose of unused prescription opioids: Find your community drug take-back program or your pharmacy mail-back program, or flush them down the toilet, following guidance from the Food and Drug Administration (www.fda.gov/Drugs/Re sourcesForYou). ? Visit www.cdc.gov/drugoverd ose to learn about the risks of opioids abuse and overdose. ? If you believe you may be struggling with addiction, tell your health care companion and ask for guidance or call [facility] National Helpline at 7-626-132-QUKM. m Source: [place] Department (more content not included)... Normal [facility] Reference Laboratory Testing Ordered By: Cari LanzaUsebib on 05-08-2021 SARS-CoV-2 (COVID-19) RNA GA+probe Ql (Resp) Detected Invalid Interpretation Code Not Detected [facility] [place] [facility] Comment on above: Result Comment: Chanel ents who have a positive COVID-19 test result may now have treatment options. Treatment options are available for patients with mild to moderate symptoms and for hospitalized patients. Visit our website at [email or web address] for resources and information. This nucleic acid amplification test was developed and its performance characteristics determined by [facility]. Nucleic acid amplification tests include RT-PCR and TMA. This test has not been FDA cleared or approved. This test has been authorized by FDA under an Emergency Use Authorization (EUA). This test is only authorized for the duration of time the declaration that circumstances exist justifying the authorization of the emergency use of in vitro diagnostic tests for detection of SARS-CoV-2 virus and/or diagnosis of COVID-19 infection under section 564(b)(1) of the Act, 21 U.S.C. 360bbb-3(b) (1), unless the authorization is terminated or revoked sooner. When diagnostic testing is negative, the possibility of a false negative result should be considered in the context of a patient's recent exposures and the presence of clinical signs and symptoms consistent with COVID-19. An individual without symptoms of COVID-19 and who is not shedding SARS-CoV-2 virus would expect to have a negative (not detected) result in this assay. Performed at: [address] [id number] PhD Mp Galdamez 02-10-2019 CNCO Letter Text Normal [facility] CNOVon 02-03-2019 CNOV Office Visit (PNTRMN ) APRIL MIN ([id number]) 4 F Date Time Provider Department 02/03/19 4:15 PM WATER SYSTEMS DESIGNER CINDY DANIELS PNTRMN During your visit today, we recorded the following information about you: Weight Height 110.9 kg 1.[address] 02/03/2019 4:30 PM Signed INITIAL ASSESSMENT VISIT PEDIATRIC NUTRITION SERVICE DATE: 02/03/2019 SERVICE TIME: 3:49 PM Reason for visit/diagnosis: obesity, hepatic steatosis Diagnosed/Consulted by: Johnny Mendieta MD Nutrition Assessment: April Fried presents today with BMI/age > 95th%ile, indicating obese status; z-score shows no evidence of malnutrition. BMI indicates Class III obesity as plotted on the Extreme BMI Growth Charts at >140% of the 95th%ile. Patient reports recent improvements in her diet. Current diet is likely still excessive in total energy intake, specifically from carbohydrates. Pt's activity level is currently low, however pt is involved in seasonal athletics. Patient/parent agreeable to recommendations made for diet and lifestyle changes. Nutritional status: In the context of Chronic Illness based on: Z score: BMI for age above normative standards Weight loss: no weight loss Intake: excessive energy intake MUAC: deferred, pt well nourished Body fat: adequate body fat Muscle mass: adequate muscle mass Fluid accumulation categorized as no fluid accumulation Functional capacity no change RECOMMEND DIAGNOSIS: NO MALNUTRITION IDENTIFIED Nutrition Diagnosis: Obesity, class III related to excessive energy intake and inadequate physical activity as evidenced by BMI/age at 141% of the 95th%ile. Nutrition Interventions: 1. Follow the partial liquid diet: 2 meals per day: meal replacement shake + 1 pc whole fruit + 1/2 serving healthy fat 1 meal per day: 4 oz meat + 2 svg starch + veggies Non-starchy veggies are unlimited (starchy veg = corn, peas, potatoes - those are starches and should be portioned at dinner) All beverages calorie-free except milk 1 x 100-150 hakeem snacks daily is ok https://One On One/ health/536-lrjrrac-uq acks https://www.[employer] [facility] om/875-izfymmg-fenitk / 1/2 serving healthy fat: 1/2 oz nuts (2 TBSP) - dry roasted, lightly salted or no salt OR raw 1/4 avocado 14 large olives or 23 small olives 2. Supplements: Recommend vit D - 50,000 IU as was prescribed by Shea Humphries in October. Call [facility] about this, you should be able to get this filled. 3. Activity: Goal of at least 30 min per day. OR look up tabata workouts on youtube Nutrition Monitoring and Evaluation: weight loss 1-2 lb/wk until BMI/age <85th%ile; adherence to nutrition related recommendations Criteria: labs/vitals; patient and parent report RD to follow up x 2 months for attainment of goals. April Fried is a 19 year old female, who presents with mother today for obesity in the setting of hepatic steatosis. PMH significant for abd pain, nausea, and constipation. Patient reports over the past few months he has been trying to eat more fruits and veggies and less fried foods, has also cut back on snacks. Patient is interested in trying the partial liquid diet. Patient states she likes cheese and carbs; she feels like she sometimes still over eats these foods. Nutrition Progress:Oral: Breakfast: not usually, school starts at 8am Snack am: none Lunch (10:30a): at school - salad w/ lettuce, broccoli, carrots, chicken; no salad dressing; + watermelon or apples; drinks water; no milk On the weekends - may skip or will have ramen noodles Snack pm: granola bars (trying to cut back on snack foods lately), carrots (no dip) Dinner: mom cooks - spaghetti (lots of pasta), meatloaf, grilled chicken/steak, potatoes (trying to cut back), usually a veggie - corn, green beans, asparagus Used to go back for second helpings but has been trying to cut back on this Snack hs: none Beverages: water (lots, iced), tea (mint, unsweetened), no soda/sports drinks Dining out: less than once per week Sweets: gummies (has been cutting back on this). Vitamin/mineral supplements: none; never did the course of vit D Nutrition relevant medications: none Physical activity level: Low active (< or = to 30 minutes/day) - cleans a lot, plays softball (conditioning starts in a few weeks) Estimated needs: 15-19 kcal/kg EER and obesity coefficients 0.85 g pro/kg DRI Maintenance fluids: 2400+ ml/day Anthropometrics: CDC growth chart Weight: 110.9 kg Percentile: >97th Z score: 2.43 Height: 163 cm Percentile: 50th Z score: 0.01 BMI/age: 41.74 kg/m2 Percentile: >97th Z score: 2.39 IBW/height @85th%ile: 67 kg %IBW/height: 166% Extreme BMI CDC growth chart: 141% of the 95th%ile MUAC: deferred, pt visibly well nourished Weight History: 10/27/2018 107.5 kg (237 lb) (>99 %, Z= 2.39)* Nutrition Significant Lab Values: labs in process Nutrition Focused Physical Exam: Subcutaneous Fat Loss: Orbital:No fat loss Upper Body: No fat loss Lower Body: No fat loss Muscle Loss Locations: Temporalis: No muscle loss Upper Body: No muscle loss Lower Body: No muscle loss Assessment of functional status: No functional impairment, normal with no limitations Ascites: No Edema: No Potential micronutrient deficiency revealed in No deficiency identified Potential Signs of Inflammation: no identifiable sources EDUCATION READINESS TO LEARN Cognitive Ability: Alert and oriented Motivation to Learn: Eager Interested Family Support: High - Very involved in pt care Instruction Provided to: Patient and Mother Patient Learns Best by: Unable to Assess Factors Affecting Learning: None Physical Limitations Affecting Learning: None Supplemental Material Provided to Patient: Partial Liquid Diet Food related allergies: Patient has no known allergies. Is the patient having any pain that is interfering with oral/enteral intake: No Time Spent: 30 minutes SIGNATURE: Татьяна Quiles MS, RD, CSP, LD PATIENT NAME: April Fried DATE: February 03, 2019 TIME: 3:48 PM PAGER: [phone] 02/03/2019 4:22 PM Addendum Follow the partial liquid diet: 2 meals per day: meal replacement shake + 1 pc whole fruit + 1/2 serving healthy fat 1 meal per day: 4 oz meat + 2 svg starch + veggies Non-starchy veggies are unlimited (starchy veg = corn, peas, potatoes - those are starches and should be portioned at dinner) All beverages calorie-free except milk 1 x 100-150 hakeem snacks daily is ok https://One On One/ health/123-kpswwzs-dv acks https://www.[employer].c om/621-kmohyzf-lxihvi / 1/2 serving healthy fat: 1/2 oz nuts (2 TBSP) - dry roasted, lightly salted or no salt OR raw 1/4 avocado 14 large olives or 23 small olives Supplements: Recommend vit D - 50,000 IU as was prescribed by Shea Humphries in October. Call [facility] about [facility], you should be able to get this filled. Activity: Goal of at least 30 min per day OR look up tabata workouts on youtube Follow-up: 2 months Татьяна (Batool Ayala) Evelia, MS, RD, CSP, LD [facility] [phone] Referring Provider: SHEA HUMPHRIES) [[id number]] Allergies As of Date: 02/03/2019 (No Known Allergies) Date Reviewed: 10/27/2018 Reviewed by: Shea Ngo) MD Yandel - Fully Assessed Reason for Visit: Nutrition Assessment [1591] Primary Visit Diagnosis:Obesity peds (BMI >=95 percentile) [E66.9, Z68.54] Other Visit Diagnoses:Hepatic steatosis [K76.0] Dietary counseling and surveillance [Z71.3] Prescriptions as of 02/03/2019 Sig: ERGOCALCIFEROL (VITAMIN D2) 5* Take 1 capsule by mouth once * DICYCLOMINE 20 MG TABLET Take 1 tablet by mouth every * POLYETHYLENE GLYCOL 3350 17 G* Take 1 Packet by mouth once d* Problem List As Of Date 02/03/2019 Noted Resolved RUQ abdominal pain [R10.11] INVALID FOR* Nausea [R11.0] INVALID FOR* Constipation [K59.00] INVALID FOR* Other instructions from your clinician: Follow the partial liquid diet: 2 meals per day: meal replacement shake + 1 pc whole fruit + 1/2 serving healthy fat 1 meal per day: 4 oz meat + 2 svg starch + veggies Non-starchy veggies are unlimited (starchy veg = corn, peas, potatoes - those are starches and should be portioned at dinner) All beverages calorie-free except milk 1 x 100-150 hakeem snacks daily is ok https://One On One/ health/973-sgfmazi-ex acks https://www.eatthis.c om/355-rwaabdl-icozuh / 1/2 serving healthy fat: 1/2 oz nuts (2 TBSP) - dry roasted, lightly salted or no salt OR raw 1/4 avocado 14 large olives or 23 small olives Supplements: Recommend vit D - 50,000 IU as was prescribed by Shea Humphries in October. Call [facility] about [facility], you should be able to get this filled. Activity: Goal of at least 30 min per day OR look up tabata workouts on youtube Follow-up: 2 months Татьяна Ayala) MS Evelia, RD, CSP, LD [facility]'s [phone] Letter Text Encounter Status:Closed by ТАТЬЯНА QUILES on 02/03/19 Normal [facility] CNOV Office Visit (PGASMN ) ARTAPRIL CARNEY ([id number]) 4 F Date Time Provider Department 02/03/19 2:30 PM JOHNNY ARANGO During your visit today, we recorded the following information about you: Temperature Pulse Respiration Blood pressure 97.8 degrees 96/minute 20/minute 124/74 Weight Height Last Period 110.9 kg 1.63 m 01/24/19 Johnny Mendieta MD 02/03/2019 4:33 PM Signed [facility] Initial Visit Chief Complaint: April Mccartney Arthailee Fried is a 19 year old female who presents today for a consultation of fatty liver disease, comorbidity management and lifestyle intervention at the request of Dr.Sophia Humphries. History obtained from: Mother and Patient. HPI: She was seen by Dr. Humphries for RUQ abdominal pain and had ultrasound as part of evaluation which showed hepatic steatosis and was referred to us for further management. Reasons for wanting to achieve a healthier lifestyle: Obesity and NAFLD. 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 Recently, her weight trend has been: Trending up. Previous diets changed: Trying to eat healthy. Activity: # of hours per day of screen time including television, computer and video games: more than 2 hours of screen time per day Physical Activity: less than 1 hour of physical activity per day Types of Physical Activity: Minimal participation in extracurricular activities. Intensity of Physical Activity: Minimal Sleep: Snoring present but no apnea PMH: No past medical history on file. History: No pediatric history on file. Her mother did not have gestational diabetes. Maternal depression: No Maternal medication use during : no. Feeding problems in infancy: No PSH: No past surgical history on file. MEDICATIONS: ergocalciferol, vitamin D2, (VITAMIN D) 50,000 unit capsule Take 1 capsule by mouth once each week. dicyclomine (BENTYL) 20 mg tablet Take 1 tablet by mouth every 6 hours. polyethylene glycol 3350 (MIRALAX, GLYCOLAX) 17 gram packet Take 1 Packet by mouth once daily. Herbal supplements: None. ALLERGIES: ALLERGIES No Known Allergies FAMILY HISTORY: Liver disease: no Liver Cancer: no NAFLD: no Obesity: no Has a family member had bariatric surgery? no Diabetes: yes in maternal grandmother CAD/AK: no Early coronary disease in first degree relative: no Dyslipidemia in first degree relative: no No family history on file. ROS: Headaches: No Chest pain: No SOB/dyspnea on exertion: no Snoring: Yes Abdominal pain: Yes. Getting better Vomiting: No Diarrhea: No Constipation: No Joint pain: No Back pain: No Anxiety: No Depression: No Irregular periods: No Endocrine: Negative for cold or heat intolerance, polyuria, polydipsia and goiter. Allergic/ Immunologic: Negative Skin: Negative Social History: April lives with: mother Tobacco: no ETOH: No DRUGS: No PE: BP 124/74 Pulse 96 Temp (Src) 97.8 (Temporal) Resp 20 Ht 5' 4.173 (1.63m) Wt 244 lb 7.8 oz (110.9kg) LMP 01/24/2019 BMI 41.74 kg/(m2). Blood pressure percentiles are 90 % systolic and 81 % diastolic based on the November 2016 AAP Clinical Practice Guideline. This reading is in the elevated blood pressure range (BP >= 120/80). General: Well developed, No acute distress, Obese Eyes: clear, no drainage OP: no lesions, moist mucous membranes, normal tonsils Neck: supple and no adenopathy. Thyroid is not enlarged. Lungs: clear to auscultation bilaterally, good air exchange, no retractions CVS: Normal rate, regular rhythm, no murmur Abdomen: Soft, nontender, nondistended, no palpable organomegaly or masses, normal bowel sounds, increased truncal adiposity Skin: acanthosis not present.. Striae: yes. Hirsute: no. Acne: No. Component Latest Ref Rng AND Units 10/27/2018 WBC 3.70 - 11.00 k/uL 8.37 RBC 3.90 - 5.20 m/uL 4.49 Hemoglobin 11.5 - 15.5 g/dL 12.5 Hematocrit 36.0 - 46.0 % 38.5 MCV 80.0 - 100.0 fL 85.7 MCH 26.0 - 34.0 pG 27.8 MCHC 30.5 - 36.0 g/dL 32.5 RDW-CV 11.5 - 15.0 % 12.4 Platelet Count 150 - 400 k/uL 387 MPV 9.0 - 12.7 fL 8.5 (L) Neut% % 56.7 Abs Neut (ANC) 1.45 - 7.50 k/uL 4.75 Lymph% % 33.0 Abs Lymph 1.00 - 4.00 k/uL 2.76 Ellsworth% % 8.4 Abs Ellsworth <0.87 k/uL 0.70 Eosin% % 1.7 Abs Eosin <0.46 k/uL 0.14 Baso% % 0.2 Abs Baso <0.11 k/uL <0.03 Nucleated Reds 0 /100 WBC 0.0 Absolute nRBC <0.01 k/uL <0.01 Diff Type Auto Diff Protein, Total 6.3 - 8.0 g/dL 7.8 Albumin 3.2 - 4.5 g/dL 4.5 Calcium 8.5 - 10.2 mg/dL 9.7 Bilirubin, Total 0.2 - 1.3 mg/dL 0.2 Alkaline Phosphatase 50 - 117 U/L 72 AST 13 - 35 U/L 19 Glucose 74 - 99 mg/dL 108 (H) BUN 5 - 18 mg/dL 14 Creatinine 0.58 - 0.96 mg/dL 0.64 Sodium 136 - 144 mmol/L 138 Potassium 3.7 - 5.1 mmol/L 4.0 Chloride 97 - 105 mmol/L 103 CO2 22 - 30 mmol/L 22 Anion Gap 9 - 18 mmol/L 13 ALT 7 - 38 U/L 29 eGFR-Pediatric Factor 0.65 TSH 0.510 - 4.300 uU/mL 3.470 Free T4 0.8 - 1.5 ng/dL 1.3 Reviewed US from OSH which shows hepatic steatosis. Assessment: April Fried is a 19 year old female with fatty liver disease. She is obese with NAFLD. Fibroscan could not be performed today since she was not fasting. Review of labs show normal liver enzymes. Discussed in detail about the pathophysiology, natural history and prognosis of nonalcoholic fatty liver disease in children. Also explained in detail about available treatment options and emphasized the importance of lifestyle intervention in the management of nonalcoholic fatty liver disease. ? ? Plan: 1) NAFLD -Goals set by patient and facilitated by motivational interviewin% weight loss. -Will obtain the following routine screening labs: As below -As part of this multidisciplinary clinic, April Fried will meet with a wincher today. 2) Obesity: Yes 3) Hypertension: No 4) Dyslipidemia: No 5) Pre-diabetes/DM2: No 6) SHAY: Snoring present. But no observed apnea reported. 7) CV risk: No 8) Follow-up 4 months. Fibroscan with next visit Office Visit on 02/03/19 - CERULOPLASMIN BLD - HEP REMOTE PANEL BL - HGB A1C - HEPATIC FUNCTION PNL Johnny Mendieta MD [facility] February 03, 2019 Johnny Mendieta MD 02/03/2019 3:06 PM Signed 1. Lifestyle interventions 2. Labs today 3. Fibroscan next visit (needs fasting for 3 hours) 4. Follow up in 4 months Referring Provider: SHEA HUMPHRIES) [[id number]] Allergies As of Date: 02/03/2019 (No Known Allergies) Date Reviewed: 10/27/2018 Reviewed by: Shea Ngo) MD Yandel - Fully Assessed Reason for Visit: Consult [502] Cmt: non-alchoholic fatty liver disease Primary Visit Diagnosis:Hepatic steatosis [K76.0] Other Visit Diagnoses:NAFLD (nonalcoholic fatty liver disease) [K76.0] Pediatric obesity due to excess calories without serious comorbidity, unspecified BMI [E66.09] Order(s):CERULOPLASMI N BLD [SQCERULO] Order #: [id number]. #:[id number] HEP REMOTE PANEL BL [SQHREMOP] Order #: [id number]. #:[id number] HGB A1C [KGQSL1Q] Order #: [id number]. #:[id number] HEPATIC FUNCTION PNL [SQHFP] Order #: [id number] FUTURE Prescriptions as of 02/03/2019 Sig: ERGOCALCIFEROL (VITAMIN D2) 5* Take 1 capsule by mouth once * DICYCLOMINE 20 MG TABLET Take 1 tablet by mouth every * POLYETHYLENE GLYCOL 3350 17 G* Take 1 Packet by mouth once d* Problem List As Of Date 02/03/2019 Noted Resolved RUQ abdominal pain [R10.11] INVALID FOR* Nausea [R11.0] INVALID FOR* Constipation [K59.00] INVALID FOR* NAFLD (nonalcoholic fatty liver disease) [K76.0]INVALID FOR* Pediatric obesity due to excess calories withou*INVALID FOR* Other instructions from your clinician: 1. Lifestyle interventions 2. Labs today 3. Fibroscan next visit (needs fasting for 3 hours) 4. Follow up in 4 months Disposition: Return in about 4 months (around 06/06/2019). Follow-up and Disposition History Recorded Encounter Status:Closed by JOHNNY ARANGO MD on 02/03/19 Normal [facility] Ceruloplasminon 02-03-2019 Ceruloplasmin 29 mg/dL Normal 16-45 [facility] Comment on above: Performed By: #### C ERULO, HBA1C, HREMOP ####[facility] [address] [place], [place] [phone] Hemoglobin A1con 02-03-2019 HbA1c (Bld) [Mass fraction] 4.9 % Normal 4.3-5.6 [facility] Comment on above: Result Comment: Amer ican Diabetes Association guidelines indicate that patients with HgbA1c in the range 5.7-6.4% are at increased risk for development of diabetes, and intervention by lifestyle modification may be beneficial. HgbA1c greater or equal to 6.5% is considered diagnostic of diabetes. Performed By: #### C DOMINIQUE, HBA1C, HREMOP ####[facility] [place], [place] [phone] HbA1c (Bld) [Mass fraction] 94 mg/dL Normal [facility] Comment on above: Result Comment: eAG: (Estimated average glucose) is a calculated value from HgbA1c and is customer development representative of the average blood glucose level in the last 2-3 month period. Performed By: #### C DOMINIQUE, HBA1C, HREMOP ####[facility] [place], [place] [phone] Hepatic Functn Panelon 02-03 Albumin [Mass/Vol] 4.4 g/dL Normal 3.2-4.5 [facility] Comment on above: Performed By: #### H FP ####[facility] [place], [place] [phone] ALP [Catalytic activity/Vol] 75 U/L Normal 45-87 [facility] Comment on above: Result Comment: Refe rence ranges were not locally established for this patient's age group. The normal values are based on the following source: Kira BECKWITH, Ethan AH, et al. CLSI based transference of the CALIPER database of pediatric reference intervals from [place] to Gini, Ortho, Ana, and Siemens Clinical Chemistry Assays: Direct validation using reference samples from the [facility] cohort. Clin Biochem. Performed By: #### H FP ####[facility] [place], [place] [phone] ALT [Catalytic activity/Vol] 26 U/L Normal 7-38 [facility] Comment on above: Result Comment: (NOT E) Reference ranges for this patient's age group have not been established. These reference ranges reflect verified or established ranges for the adult population. Interpret these ranges wtih caution using clinical context and additional reference resources. Performed By: #### H FP ####[facility] [place], [place] [phone] AST [Catalytic activity/Vol] 24 U/L Normal 13-35 [facility] Comment on above: Result Comment: (NOT E) Reference ranges for this patient's age group have not been established. These reference ranges reflect verified or established ranges for the adult population. Interpret these ranges with caution using clinical context and additional reference resources. Performed By: #### H FP ####[facility] [place], [place] [phone] Bilirubin [Mass/Vol] 0.2 mg/dL Normal 0.2-1.3 [facility] Comment on above: Result Comment: (NOT E) Reference ranges for this patient's age group have not been established. These reference ranges reflect verified or established ranges for the adult population. Interpret these ranges with caution using the clinical context and additional reference resources. Performed By: #### H FP ####[place] [address] [place], [place] [phone] Bilirubin,Conjugated <0.2 Normal <0.2 [facility] Comment on above: Result Comment: (NOT E) Reference ranges for this patient's age group have not been established. These reference ranges reflect verified or established ranges for the adult population. Interpret these ranges with caution using the clinical context and additional reference resources. Performed By: #### H FP ####[place] [address] [place], [place] [phone] Protein [Mass/Vol] 7.8 g/dL Normal 6.3-8.0 [facility] Comment on above: Result Comment: (NOT E) Note that results are flagged as abnormal based on ADULT reference ranges, rather than age-specific ranges for the pediatric population. Lab-specific normal ranges have not been determined for this patient's age group. Published reference range data, shown in the table below, may contibute to proper clinical interpretation. Age Reference Range Units 0-12 months 4.9-7.3 g/dL 1-5 years 6.2-8.0 g/dL 6-10 years 6.6-8.6 g/dL 11-14 years 6.4-8.5 g/dL 15-17 years 6.4-8.3 g/dL Reference: Armando MK, Home I, Srinivasan M, et al. [place] [facility] Initiative on Reference Interval Database(CALIPER): pediatric reference intervals for an integrated clinical chemistry and immunoassay analyzer, [place] STUDIO CAMERA OPERATOR [id number]. Clin Biochem 2009;42:885-891. Performed By: #### H FP ####[address] [place] [phone] Hepatitis Remote Panelon HBsAg Negative Normal Negative [facility] Comment on above: Performed By: #### C ERULO, HBA1C, HREMOP ####[address] [place], [place] [phone] Hep B Core Ab,Total Negative Normal Negative [facility] Comment on above: Performed By: #### C ERULO, HBA1C, HREMOP ####[address] [phone] Hepatitis C Ab IA Negative Normal Negative [facility] Comment on above: Performed By: #### C ERULO, HBA1C, HREMOP ####[address] [place], [place] [phone] HepB Surface Ab,Qual Negative Normal Negative [facility] Comment on above: Result Comment: NEGA TIVE Performed By: #### C ERULO, HBA1C, HREMOP ####[address] [place], [place] [phone] PROGRESSon 02-03-2019 PROGRESS HNO ID: [id number] Author: Татьяна Quiles Service: ? Author Type: Registered Dietitian Type: Progress Notes Filed: 02/03/2019 4:30 PM Note Text: INITIAL ASSESSMENT VISIT PEDIATRIC NUTRITION SERVICE DATE: 02/03/2019 SERVICE TIME: 3:49 PM Reason for visit/diagnosis: obesity, hepatic steatosis Diagnosed/Consulted by: Johnny Mendieta MD Nutrition Assessment: April Fried presents today with BMI/age > 95th%ile, indicating obese status; z-score shows no evidence of malnutrition. BMI indicates Class III obesity as plotted on the Extreme BMI Growth Charts at >140% of the 95th%ile. Patient reports recent improvements in her diet. Current diet is likely still excessive in total energy intake, specifically from carbohydrates. Pt's activity level is currently low, however pt is involved in seasonal athletics. Patient/parent agreeable to recommendations made for diet and lifestyle changes. Nutritional status: In the context of Chronic Illness based on: Z score: BMI for age above normative standards Weight loss: no weight loss Intake: excessive energy intake MUAC: deferred, pt well nourished Body fat: adequate body fat Muscle mass: adequate muscle mass Fluid accumulation categorized as no fluid accumulation Functional capacity no change RECOMMEND DIAGNOSIS: NO MALNUTRITION IDENTIFIED Nutrition Diagnosis: Obesity, class III related to excessive energy intake and inadequate physical activity as evidenced by BMI/age at 141% of the 95th%ile. Nutrition Interventions: 1. Follow the partial liquid diet: 2 meals per day: meal replacement shake + 1 pc whole fruit + 1/2 serving healthy fat 1 meal per day: 4 oz meat + 2 svg starch + veggies Non-starchy veggies are unlimited (starchy veg = corn, peas, potatoes - those are starches and should be portioned at dinner) All beverages calorie-free except milk 1 x 100-150 hakeem snacks daily is ok https://One On One/ health/656-zwuzthb-tm acks https://www.FlyCasts.c om/891-flaeafm-skclcy / 1/2 serving healthy fat: 1/2 oz nuts (2 TBSP) - dry roasted, lightly salted or no salt OR raw 1/4 avocado 14 large olives or 23 small olives 2. Supplements: Recommend vit D - 50,000 IU as was prescribed by Shea Humphries in October. Call [facility] about this, you should be able to get this filled. 3. Activity: Goal of at least 30 min per day. OR look up tabata workouts on youtube Nutrition Monitoring and Evaluation: weight loss 1-2 lb/wk until BMI/age <85th%ile; adherence to nutrition related recommendations Criteria: labs/vitals; patient and parent report RD to follow up x 2 months for attainment of goals. April Fried is a 19 year old female, who presents with mother today for obesity in the setting of hepatic steatosis. PMH significant for abd pain, nausea, and constipation. Patient reports over the past few months he has been trying to eat more fruits and veggies and less fried foods, has also cut back on snacks. Patient is interested in trying the partial liquid diet. Patient states she likes cheese and carbs; she feels like she sometimes still over eats these foods. Nutrition Progress:Oral: Breakfast: not usually, school starts at 8am Snack am: none Lunch (10:30a): at school - salad w/ lettuce, broccoli, carrots, chicken; no salad dressing; + watermelon or apples; drinks water; no milk On the weekends - may skip or will have ramen noodles Snack pm: granola bars (trying to cut back on snack foods lately), carrots (no dip) Dinner: mom cooks - spaghetti (lots of pasta), meatloaf, grilled chicken/steak, potatoes (trying to cut back), usually a veggie - corn, green beans, asparagus Used to go back for second helpings but has been trying to cut back on this Snack hs: none Beverages: water (lots, iced), tea (mint, unsweetened), no soda/sports drinks Dining out: less than once per week Sweets: gummies (has been cutting back on this). Vitamin/mineral supplements: none; never did the course of vit D Nutrition relevant medications: none Physical activity level: Low active (< or = to 30 minutes/day) - cleans a lot, plays softball (conditioning starts in a few weeks) Estimated needs: 15-19 kcal/kg EER and obesity coefficients 0.85 g pro/kg DRI Maintenance fluids: 2400+ ml/day Anthropometrics: CDC growth chart Weight: 110.9 kg Percentile: >97th Z score: 2.43 Height: 163 cm Percentile: 50th Z score: 0.01 BMI/age: 41.74 kg/m2 Percentile: >97th Z score: 2.39 IBW/height @85th%ile: 67 kg %IBW/height: 166% Extreme BMI CDC growth chart: 141% of the 95th%ile MUAC: deferred, pt visibly well nourished Weight History: 10/27/2018 107.5 kg (237 lb) (>99 %, Z= 2.39)* Nutrition Significant Lab Values: labs in process Nutrition Focused Physical Exam: Subcutaneous Fat Loss: Orbital:No fat loss Upper Body: No fat loss Lower Body: No fat loss Muscle Loss Locations: Temporalis: No muscle loss Upper Body: No muscle loss Lower Body: No muscle loss Assessment of functional status: No functional impairment, normal with no limitations Ascites: No Edema: No Potential micronutrient deficiency revealed in No deficiency identified Potential Signs of Inflammation: no identifiable sources EDUCATION READINESS TO LEARN Cognitive Ability: Alert and oriented Motivation to Learn: Eager Interested Family Support: High - Very involved in pt care Instruction Provided to: Patient and Mother Patient Learns Best by: Unable to Assess Factors Affecting Learning: None Physical Limitations Affecting Learning: None Supplemental Material Provided to Patient: Partial Liquid Diet Food related allergies: Patient has no known allergies. Is the patient having any pain that is interfering with oral/enteral intake: No Time Spent: 30 minutes SIGNATURE: Татьяна Quiles, MS, RD, CSP, LD PATIENT NAME: April Fried DATE: February 03, 2019 TIME: 3:48 PM PAGER: [phone] Normal [facility] PROGRESS HNO ID: [id number] Author: Momo Coronado (Coord) Service: ? Author Type: Research Type: Progress Notes Filed: 02/03/2019 4:01 PM Note Text: DATE: February 03, 2019 TIME: 03:20 PM PT. NAME: April Fried [facility]#: [id number] IRB #: [id number] PROTOCOL: TARGET-ROJAS: 5-year Longitudinal Observational Study of Patients with Nonalcoholic Fatty Liver or Nonalcoholic Steatohepatitis Principle Rn Immunology: Dr. Johnny OLIVA: Momo Coronado, (Pager [phone]) [facility] electronic news gathering camera person for study related questions: Ped. [facility] (Momo Coronado, Research Crd - Pager [phone]) April Fried was seen today as standard of care visit with Dr. Mendieta in the Pediatric Gastro[facility]ology Clinic. In addition,April Fried was consented and enrolled in the TARGET-ROJAS- study [id number]. Plastics Technician and/or Research Coordinator explained the protocol to April Fried and the mother. They read and verbally understood the informed consent. April Fried and the mother signed the informed consent. April Fried and the parents gave consent to participate the in the optional questionnaires for participants less than 18 years of age. Yes In addition they gave consent to participate in the optional Biorespository Specimen Bank. Yes Today the participant filled out the Alcohol Use Disorders Identification Test (AUDIT), if patient is older than 12 years old. Yes In addition they answer the question for the Patient Reported Outcome surveys. Yes April Fried participate also in optional Biorespository Specimen Bank part of the study and got also a blood draw. The next follow-up visit for the study will be for April Fried in approximal one year with a standard of care visit. _ [facility] Normal [facility] PROGRESS HNO ID: [id number] Author: Johnny Mendieta Service: ? Author Type: Physician Type: Progress Notes Filed: 02/03/2019 4:33 PM Note Text: Metabolic Liver Clinic Initial Visit Chief Complaint: April Fried is a 19 year old female who presents today for a consultation of fatty liver disease, comorbidity management and lifestyle intervention at the request of Dr.Sophia Humphries. History obtained from: Mother and Patient. HPI: She was seen by Dr. Humphries for RUQ abdominal pain and had ultrasound as part of evaluation which showed hepatic steatosis and was referred to us for further management. Reasons for wanting to achieve a healthier lifestyle: Obesity and NAFLD. 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 Recently, her weight trend has been: Trending up. Previous diets changed: Trying to eat healthy. Activity: # of hours per day of screen time including television, computer and video games: more than 2 hours of screen time per day Physical Activity: less than 1 hour of physical activity per day Types of Physical Activity: Minimal participation in extracurricular activities. Intensity of Physical Activity: Minimal Sleep: Snoring present but no apnea PMH: No past medical history on file. History: No pediatric history on file. Her mother did not have gestational diabetes. Maternal depression: No Maternal medication use during : no. Feeding problems in infancy: No PSH: No past surgical history on file. MEDICATIONS: ergocalciferol, vitamin D2, (VITAMIN D) 50,000 unit capsule Take 1 capsule by mouth once each week. dicyclomine (BENTYL) 20 mg tablet Take 1 tablet by mouth every 6 hours. polyethylene glycol 3350 (MIRALAX, GLYCOLAX) 17 gram packet Take 1 Packet by mouth once daily. Herbal supplements: None. ALLERGIES: ALLERGIES No Known Allergies FAMILY HISTORY: Liver disease: no Liver Cancer: no NAFLD: no Obesity: no Has a family member had bariatric surgery? no Diabetes: yes in maternal grandmother CAD/AK: no Early coronary disease in first degree relative: no Dyslipidemia in first degree relative: no No family history on file. ROS: Headaches: No Chest pain: No SOB/dyspnea on exertion: no Snoring: Yes Abdominal pain: Yes. Getting better Vomiting: No Diarrhea: No Constipation: No Joint pain: No Back pain: No Anxiety: No Depression: No Irregular periods: No Endocrine: Negative for cold or heat intolerance, polyuria, polydipsia and goiter. Allergic/ Immunologic: Negative Skin: Negative Social History: April lives with: mother Tobacco: no ETOH: No DRUGS: No PE: BP 124/74 Pulse 96 Temp (Src) 97.8 (Temporal) Resp 20 Ht 5' 4.173 (1.63m) Wt 244 lb 7.8 oz (110.9kg) LMP 01/24/2019 BMI 41.74 kg/(m2). Blood pressure percentiles are 90 % systolic and 81 % diastolic based on the November 2016 AAP Clinical Practice Guideline. This reading is in the elevated blood pressure range (BP >= 120/80). General: Well developed, No acute distress, Obese Eyes: clear, no drainage OP: no lesions, moist mucous membranes, normal tonsils Neck: supple and no adenopathy. Thyroid is not enlarged. Lungs: clear to auscultation bilaterally, good air exchange, no retractions CVS: Normal rate, regular rhythm, no murmur Abdomen: Soft, nontender, nondistended, no palpable organomegaly or masses, normal bowel sounds, increased truncal adiposity Skin: acanthosis not present.. Striae: yes. Hirsute: no. Acne: No. Component Latest Ref Rng AND Units 10/27/2018 WBC 3.70 - 11.00 k/uL 8.37 RBC 3.90 - 5.20 m/uL 4.49 Hemoglobin 11.5 - 15.5 g/dL 12.5 Hematocrit 36.0 - 46.0 % 38.5 MCV 80.0 - 100.0 fL 85.7 MCH 26.0 - 34.0 pG 27.8 MCHC 30.5 - 36.0 g/dL 32.5 RDW-CV 11.5 - 15.0 % 12.4 Platelet Count 150 - 400 k/uL 387 MPV 9.0 - 12.7 fL 8.5 (L) Neut% % 56.7 Abs Neut (ANC) 1.45 - 7.50 k/uL 4.75 Lymph% % 33.0 Abs Lymph 1.00 - 4.00 k/uL 2.76 Ellsworth% % 8.4 Abs Ellsworth <0.87 k/uL 0.70 Eosin% % 1.7 Abs Eosin <0.46 k/uL 0.14 Baso% % 0.2 Abs Baso <0.11 k/uL <0.03 Nucleated Reds 0 /100 WBC 0.0 Absolute nRBC <0.01 k/uL <0.01 Diff Type Auto Diff Protein, Total 6.3 - 8.0 g/dL 7.8 Albumin 3.2 - 4.5 g/dL 4.5 Calcium 8.5 - 10.2 mg/dL 9.7 Bilirubin, Total 0.2 - 1.3 mg/dL 0.2 Alkaline Phosphatase 50 - 117 U/L 72 AST 13 - 35 U/L 19 Glucose 74 - 99 mg/dL 108 (H) BUN 5 - 18 mg/dL 14 Creatinine 0.58 - 0.96 mg/dL 0.64 Sodium 136 - 144 mmol/L 138 Potassium 3.7 - 5.1 mmol/L 4.0 Chloride 97 - 105 mmol/L 103 CO2 22 - 30 mmol/L 22 Anion Gap 9 - 18 mmol/L 13 ALT 7 - 38 U/L 29 eGFR-Pediatric Factor 0.65 TSH 0.510 - 4.300 uU/mL 3.470 Free T4 0.8 - 1.5 ng/dL 1.3 Reviewed US from OSH which shows hepatic steatosis. Assessment: April Mccartney Arthailee Fride is a 19 year old female with fatty liver disease. She is obese with NAFLD. Fibroscan could not be performed today since she was not fasting. Review of labs show normal liver enzymes. Discussed in detail about the pathophysiology, natural history and prognosis of nonalcoholic fatty liver disease in children. Also explained in detail about available treatment options and emphasized the importance of lifestyle intervention in the management of nonalcoholic fatty liver disease. ? ? Plan: 1) NAFLD -Goals set by patient and facilitated by motivational interviewin% weight loss. -Will obtain the following routine screening labs: As below -As part of this multidisciplinary clinic, April Fried will meet with a wincher today. 2) Obesity: Yes 3) Hypertension: No 4) Dyslipidemia: No 5) Pre-diabetes/DM2: No 6) SHAY: Snoring present. But no observed apnea reported. 7) CV risk: No 8) Follow-up 4 months. Fibroscan with next visit Office Visit on 02/03/19 - CERULOPLASMIN BLD - HEP REMOTE PANEL BL - HGB A1C - HEPATIC FUNCTION PNL Johnny Mendieta MD [facility] February 03, 2019 Normal [facility] CNPTOUTREACHon 12-10-2018 CNPTOUTREACH Patient Outreach ([facility]AS[facility]) APRIL MIN ([id number]) 4 F Date Time Provider Department 12/10/18 SHEA HUMPHRIES) [facility] During your visit today, we recorded the following information about you: Sen Ortega 12/10/2018 3:32 PM Signed Called and spoke with mom (Sarah). Mom informed that US showed signs of NAFLD. Mom advised that MD would like for patient to follow up with Dr. Mendieta (specializes in FLD). Mom teaches this back but states that she will probably still keep appointment with Dr. Humphries for 12/15/18 and then follow up with Gayatri after this. Also discussed with mom the benefits of a healthy diet and exercise. Mom teaches this back and states that she will talk with patient about diet and exercise. Mom thankful for call, no further questions for RN at this time. Allergies As of Date: 12/10/2018 (No Known Allergies) Date Reviewed: 10/27/2018 Reviewed by: Shea Ngo) MD Yandel - Fully Assessed Reason for Visit: care coordiantion [Other] Cmt: US results Prescriptions as of 12/10/2018 Sig: ERGOCALCIFEROL (VITAMIN D2) 5* Take 1 capsule by mouth once * DICYCLOMINE 20 MG TABLET Take 1 tablet by mouth every * POLYETHYLENE GLYCOL 3350 17 G* Take 1 Packet by mouth once d* Problem List As Of Date 12/10/2018 Noted Resolved RUQ abdominal pain [R10.11] INVALID FOR* Nausea [R11.0] INVALID FOR* Constipation [K59.00] INVALID FOR* Encounter Status:Closed by SEN ORTEGA on 12/10/18 Normal [facility] PROGRESSon 12-10-2018 PROGRESS HNO ID: [id number] Author: Sen Ortega Service: ? Author Type: ? Type: Progress Notes Filed: 12/10/2018 3:32 PM Note Text: Called and spoke with mom (Sarah). Mom informed that US showed signs of NAFLD. Mom advised that MD would like for patient to follow up with Dr. Mendieta (specializes in FLD). Mom teaches this back but states that she will probably still keep appointment with Dr. Humphries for 12/15/18 and then follow up with Gayatri after this. Also discussed with mom the benefits of a healthy diet and exercise. Mom teaches this back and states that she will talk with patient about diet and exercise. Mom thankful for call, no further questions for RN at this time. Normal [facility] Amylaseon 10-27-2018 Amylase [Catalytic activity/Vol] 56 U/L Normal 30-104 [facility] Comment on above: Result Comment: (NOT E) Reference ranges for this patient's age group have not been established. These reference ranges reflect verified or established ranges for the adult population. Interpret these ranges with caution using the clinical context and additional reference resources. Performed By: #### A MYL, CRP, LIPA, VITD, ENDOMY, GLIIGA, TGIGA #### [place] [id number] [place] [phone] C-Reactive Proteinon 019 CRP [Mass/Vol] 0.3 mg/dL Normal <0.9 [facility] Comment on above: Performed By: #### A MYL, CRP, LIPA, VITD, ENDOMY, GLIIGA, TGIGA #### [place] [id number] [place] [phone] CBC and Differentialon 10-27 Abs Baso <0.03 Normal <0.11 [facility] Comment on above: Performed By: #### A MYL, CRP, LIPA, VITD, ENDOMY, GLIIGA, TGIGA #### [facility] [place] [phone] Abs Ell[place] 0.70 k/uL Normal <0.87 [facility] Comment on above: Performed By: #### A MYL, CRP, LIPA, VITD, ENDOMY, GLIIGA, TGIGA #### [facility] [place] [phone] Abs Neut 4.75 k/uL Normal 1.45-7.50 [facility] Comment on above: Performed By: #### A MYL, CRP, LIPA, VITD, ENDOMY, GLIIGA, TGIGA #### [place] [address] [place] [phone] Absolute nRBC <0.01 Normal <0.01 [facility] Comment on above: Performed By: #### A MYL, CRP, LIPA, VITD, ENDOMY, GLIIGA, TGIGA #### [place] [phone] Basophils/100 WBC (Bld) 0.2 % Normal [facility] Comment on above: Performed By: #### A MYL, CRP, LIPA, VITD, ENDOMY, GLIIGA, TGIGA #### [place] [phone] DTYPE Auto Diff Normal [facility] Comment on above: Performed By: #### A MYL, CRP, LIPA, VITD, ENDOMY, GLIIGA, TGIGA #### [place] [phone] Eosinophils (Bld) [#/Vol] 0.14 10*3/uL Normal <0.46 [facility] Comment on above: Performed By: #### A MYL, CRP, LIPA, VITD, ENDOMY, GLIIGA, TGIGA #### [place] [phone] Eosinophils/100 WBC (Bld) 1.7 % Normal [facility] Comment on above: Performed By: #### A MYL, CRP, LIPA, VITD, ENDOMY, GLIIGA, TGIGA #### [place] [phone] Erythrocyte distribution width (RBC) [Ratio] 12.4 % Normal 11.5-15.0 [facility] Comment on above: Performed By: #### A MYL, CRP, LIPA, VITD, ENDOMY, GLIIGA, TGIGA #### [address] [place], [place] [address] Hematocrit (Bld) [Volume fraction] 38.5 % Normal 36.0-46.0 [facility] Comment on above: Performed By: #### A MYL, CRP, LIPA, VITD, ENDOMY, GLIIGA, TGIGA #### [place] [address] Hemoglobin (Bld) [Mass/Vol] 12.5 g/dL Normal 11.5-15.5 [facility] Comment on above: Performed By: #### A MYL, CRP, LIPA, VITD, ENDOMY, GLIIGA, TGIGA #### [place] [address] Lymphocytes (Bld) [#/Vol] 2.76 10*3/uL Normal 1.00-4.00 [facility] Comment on above: Performed By: #### A MYL, CRP, LIPA, VITD, ENDOMY, GLIIGA, TGIGA #### [place] [address] Lymphocytes/100 WBC (Bld) 33.0 % Normal [facility] Comment on above: Performed By: #### A MYL, CRP, LIPA, VITD, ENDOMY, GLIIGA, TGIGA #### [place] [address] MCH (RBC) [Entitic mass] 27.8 pG Normal 26.0-34.0 [facility] Comment on above: Performed By: #### A MYL, CRP, LIPA, VITD, ENDOMY, GLIIGA, TGIGA #### [place] [address] MCHC (RBC) [Mass/Vol] 32.5 g/dL Normal 30.5-36.0 [facility] Comment on above: Performed By: #### A MYL, CRP, LIPA, VITD, ENDOMY, GLIIGA, TGIGA #### [place] [address] [place] [address] MCV (RBC) [Entitic vol] 85.7 fL Normal 80.0-100.0 [facility] Comment on above: Performed By: #### A MYL, CRP, LIPA, VITD, ENDOMY, GLIIGA, TGIGA #### [place] [address] Monocytes/100 WBC (Bld) 8.4 % Normal [facility] Comment on above: Performed By: #### A MYL, CRP, LIPA, VITD, ENDOMY, GLIIGA, TGIGA #### [place] [phone] Neutrophils/100 WBC (Bld) 56.7 % Normal [facility] Comment on above: Performed By: #### A MYL, CRP, LIPA, VITD, ENDOMY, GLIIGA, TGIGA #### [place] [address] NRBCs 0.0 /100 WBC Normal 0 [facility] Comment on above: Performed By: #### A MYL, CRP, LIPA, VITD, ENDOMY, GLIIGA, TGIGA #### [place] [phone] [place] [phone] Platelet mean volume (Bld) [Entitic vol] 8.5 fL Low 9.0-12.7 [facility] Comment on above: Performed By: #### A MYL, CRP, LIPA, VITD, ENDOMY, GLIIGA, TGIGA #### [place] [address] [place] [address] Platelets (Bld) [#/Vol] 387 10*3/uL Normal 150-400 [facility] Comment on above: Performed By: #### A MYL, CRP, LIPA, VITD, ENDOMY, GLIIGA, TGIGA #### [facility] [address] [place] [address] RBC (Bld) [#/Vol] 4.49 10*6/uL Normal 3.90-5.20 [facility] Comment on above: Performed By: #### A MYL, CRP, LIPA, VITD, ENDOMY, GLIIGA, TGIGA #### [facility] [address] [place] [phone] WBC (Bld) [#/Vol] 8.37 10*3/uL Normal 3.70-11.00 [facility] Comment on above: Performed By: #### A MYL, CRP, LIPA, VITD, ENDOMY, GLIIGA, TGIGA #### [facility] [address] [place] [address] CNCOon 10-27-2018 CNCO Letter Text Normal [facility] CNOVon 10-27-2018 CNOV Office Visit (PGASAV ) APRIL MIN ([id number]) 4 F Date Time Provider Department 10/27/18 1:00 PM SHEA HUMPHRIES) PGASAV During your visit today, we recorded the following information about you: Weight Height Last Period 107.5 kg 1.643 m 10/13/18 Shea Humphries MD, MD 10/27/2018 1:48 PM Signed Referring MD: This patient was referred by JASMYN Gong for evaluation and management of abdominal complaints and our recommendations will be communicated back (either as a letter or via electronic medical record delivery) to JASMYN Gong. HPI: April Fried is a 18 year old female being seen today in new consultation in pediatric GI clinic secondary to issues with acid reflux. The history is obtained from the parent and patient. Pain that is stabbing in the epigastric and LUQ, radiating to RUQ area. Comes and goes during the day. Sometimes will have no precipitating factors. No food triggers. The pain is sporadic, not always after eating. The pain lasts for a few minutes at a time. The pain occurs a few times during the day. Sometimes feels nausea. She has vomited in the past but not recently. No acid reflux or heartburn symptoms. Pain seems to worsen with greasy foods and fried foods. She does notice issues with feeling very ill when she drinks lactose containing foods. Symptoms have been ongoing for since March. Was started on omeprazole 40mg which did not improve her symptoms. Pain has improved since she has changed her diet. Pain duration: daily - lasts a few minutes Medications tried have included prevacid - did not improve symptoms. She was then started on zofran for vomiting- and the vomiting has stopped now. No other labwork or ultrasounds were completed. Mostly just PICKING TECH that they saw started medications. Bowel movement - daily, medium sized formed piece. Dietary history Breakfast - eggs. Skip sometimes. Lunch - sandwich, ham/cheese. Water. Snacks - denies Dinner - steak, chicken. Not many veggies, but likes fruits. No diarrhea, no hematochezia. All outside records provided by the family were reviewed in detail. Review Of Systems: Constitutional:- trying to actively lose weight. ENDO:- no diabetes or thyroid disease CVS:- No history of heart disease, No history of heart murmurs RESP:- no wheezing, frequent cough or shortness of breath GI:- abdominal pain NEURO:-Normal growth and development. :negative Integumentary:- Negative for lesions, rash, and itching. Musculoskeletal:- Negative Psychiatry:-negative for sleep disturbance and recent psychosocial stressors Hematologic/Lymphatic :-No history of anemia, bruising, bleeding abnormalities. Allergic/Immunologic: -no hay fever or drug allergies All other systems reviewed and negative. Past Medical History: None Medications: None Allergies: ALLERGIES No Known Allergies Surgical: Ear tubes Foot surgery Immunizations: UTD Family History: No GI symptoms in the family Parents - no medical problems Social History: Lives at home with 2 brothers, 7 sisters (half siblings, one full sister, one full brother). One sister is deaf. Ear problems. No recent camping, travel, just swimming in pools Physical Exam: Wt 107.5 kg (237 lb) BMI 39.82 kg/m2 (>99 %ile (Z= 2.39) based on CDC (Girls, 2-20 Years) [id number] data using vitals from 10/27/2018.)(>99 %ile (Z= 2.34) based on CDC (Girls, 2-20 Years) BMI-for-age based on BMI available as of 10/27/2018.) Last 5 Encounter Wt Readings: Date: Wt: 10/27/2018 107.5 kg (237 lb) (>99 %, Z= 2.39)* General/Constitutiona l:- alert and active in no apparent distress Eyes:- anicteric sclera ENMT: Normal set ears, no nasal discharge, moist mucous membranes Cardiac:- Regular Rate and Rhythm Respiratory:- clear to auscultation Gastrointestinal:- soft, NTTP, non distended, no HSM or masses Hematologic/Lymphatic : No lymphadenopathy /Recal :- deferred exam Musculoskeletal:- full range of motion, no joint swelling or tenderness Skin:-no jaundice Psychiatric - appropriately engaged Labs/Imaging: CMP: No results found for this basename: GLUC,BUN,CREAT,NA,K,C HLOR,CO2,TPROT,ALB,CA ,ALKPHOS,TBILI,AST,AL T No results found for: HB, HCT, WBC, PLT No image results found. Previous labs were reviewed in detail. Previous imaging was reviewed in detail. Impression: April Bib Dimashailee Fried is here in pediatric gastroenterology clinic with symptoms of stabbing RUQ abdominal pain which have been persistent since March, daily, that last several minutes to longer at at [place] and seemt o be worse with greasy/acidic foods and fatty foods.. Medications tried included PPI therapy which was not helpful for 3 months along with zofran which was helpful for nausea and vomiting, which were previously associate dwith the symptoms but have now resolved. She has larger bowel movements on a daily basis and seems to have worse symptoms as well with lactose containing foods. We discussed possible causes of her symptoms including cholecystitis, cholelithiasis, pancreatitis (less likely), pain with fatty foods points more towards a gallbladder issue or IBS. We discussed dietary modification to avoid certain foods that can trigger reflux and a list was provided to the family for review and adjustment including limiting FODMAPs. They should also avoid eating late at night and overeating, as these are triggers as well, along with adding exercise into their lifestyle, which can be helpful. Discussed adding in Bentyl TID to help with pain. We discussed other differentials like celiac disease, thyroid disease, fatty liver disease. Will need ultrasound to r/o abovementioned causes. Would like family to submit stool for H. Pylori and calprotectin to r/o infection and inflammation. Discussed treatment with miralax for suspected constipation which may also be contributing to her symptoms. Plan: Labs and stool studies - letter provided Ultrasound Bentyl 20mg TID Dietary modification discussed in detail Follow up in 6 weeks or sooner prn Shea Humphries MD Pediatric Gastroenterology Staff [facility]'s CC: Maria Elena James, SOFTWARE DEVELOPMENT SPECIALIST-C [address] [place] [id number] Shea Humphries MD, MD 10/27/2018 1:28 PM Signed Labs today Stool sample - drop off at local [facility] Ultrasound - at [facility] Bentyl - take pain three times per day as needed for pain Referring Provider: MARIA ELENA JAMES [[id number]] Allergies As of Date: 10/27/2018 (No Known Allergies) Date Reviewed: 10/27/2018 Reviewed by: Shea Ngo) MD Yandel - Fully Assessed Reason for Visit: New Patient [172] Primary Visit Diagnosis:RUQ abdominal pain [R10.11] Other Visit Diagnoses:Nausea [R11.0] Constipation, unspecified constipation type [K59.00] Order(s):TSH BLD [SQTSH] Order #: [id number] FUTURE SED RATE WESTERGREN [SQWSR] Order #: [id number] FUTURE ENDOMYSIAL IGA AB [SQENDOMY] Order #: [id number] IGA BLD [SQIGA] Order #: [id number] FUTURE C-REACTIVE PROTEIN (CRP) [SQCRP] Order #: [id number] VITAMIN D 25 HYDROXY [SQVITD] Order #: [id number] COMP METABOLIC PANEL [SQCMP] Order #: [id number] FUTURE CBC + DIFF [SQCBCDIF] Order #: [id number] T4 FREE/FREE THYROX [SQFT4] Order #: [id number] FUTURE LIPASE BLD [SQLIPA] Order #: [id number] GLIADIN (DEAMIDATED) AB, IGA [SQGLIIGA] Order #: [id number] AMYLASE BLD [SQAMYL] Order #: [id number] TRANSGLUTAMINASE IGA [SQTGIGA] Order #: [id number] dicyclomine (BENTYL) 20 mg tabletTake 1 tablet by mouth every 6 hours.Disp: 90 tabletRfl: 3 polyethylene glycol 3350 (MIRALAX, GLYCOLAX) 17 gram packetTake 1 Packet by mouth once daily.Disp: 30 PacketRfl: 3 Prescriptions as of 10/27/2018 Sig: DICYCLOMINE 20 MG TABLET Take 1 tablet by mouth every * POLYETHYLENE GLYCOL 3350 17 G* Take 1 Packet by mouth once d* Problem List As Of Date 10/27/2018 Noted Resolved RUQ abdominal pain [R10.11] INVALID FOR* Nausea [R11.0] INVALID FOR* Constipation [K59.00] INVALID FOR* Other instructions from your clinician: Labs today Stool sample - drop off at local hospital Ultrasound - at local hospital Bentyl - take pain three times per day as needed for pain Prescriptions ordered this encounter Disp Refills Start End DICYCLOMINE 20 MG TABLET 90 t* 3 10/27/2018 Route: ORAL Sig: Take 1 tablet by mouth every 6 hours. POLYETHYLENE GLYCOL 3350 17 GRAM ORA* 30 P* 3 10/27/2018 Route: ORAL Sig: Take 1 Packet by mouth once daily. Encounter Status:Closed by SHEA HUMPHRIES MD on 10/27/18 Normal [facility] Comp Metabolic Panelon 10-27 Albumin [Mass/Vol] 4.5 g/dL Normal 3.2-4.5 [facility] Comment on above: Result Comment: Refe rence ranges were not locally established for this patient's age group. The normal values are based on the following source: Albumin (Gen. 2) (package insert v 10.0 [place]). [facility], [place], [place], June 2014. Performed By: #### F ANJUM Cowan, IGA ####[facility], [place] [phone] ALP [Catalytic activity/Vol] 72 U/L Normal 50-117 [facility] Comment on above: Result Comment: Refe rence ranges were not locally established for this patient's age group. The normal values are based on the following source: Kira MP, Ethan AH, et al. CLSI based transference of the CALIPER database of pediatric reference intervals from [employer] to [employer], [employer], [employer], and [employer] Clinical Chemistry Assays: Direct validation using reference samples from the CALIPER cohort. Clin Biochem. Performed By: #### F Camryn WSBib, IGA ####[facility], [place] [phone] ALT [Catalytic activity/Vol] 29 U/L Normal 7-38 [facility] Comment on above: Result Comment: (NOT E) Reference ranges for this patient's age group have not been established. These reference ranges reflect verified or established ranges for the adult population. Interpret these ranges wtih caution using clinical context and additional reference resources. Performed By: #### F Camryn WSBib, IGA ####[facility], [place] [phone] Anion gap [Moles/Vol] 13 mmol/L Normal 9-18 [facility] Comment on above: Result Comment: (NOT E) Reference ranges for this patient's age group have not been established. These reference ranges reflect verified or established ranges for the adult population. Interpret these ranges with caution using the clinical context and additional reference resources. Performed By: #### F T4 WSR, IGA ####[facility], [place] [phone] AST [Catalytic activity/Vol] 19 U/L Normal 13-35 [facility] Comment on above: Result Comment: (NOT E) Reference ranges for this patient's age group have not been established. These reference ranges reflect verified or established ranges for the adult population. Interpret these ranges with caution using clinical context and additional reference resources. Performed By: #### F ANJUM Cowan, IGA ####[facility] [place] [address] [phone] Bilirubin [Mass/Vol] 0.2 mg/dL Normal 0.2-1.3 [facility] Comment on above: Result Comment: (NOT E) Reference ranges for this patient's age group have not been established. These reference ranges reflect verified or established ranges for the adult population. Interpret these ranges with caution using the clinical context and additional reference resources. Performed By: #### F ANJUM Cowan, IGA ####[facility] [place] [address] [phone] Calcium [Mass/Vol] 9.7 mg/dL Normal 8.5-10.2 [facility] Comment on above: Result Comment: Refe rence ranges were not locally established for this patient's age group. The normal values are based on the following source: Calcium (Gen. 2) (package insert v3.0 [place]). [facility], [place], [place], January 2013. Performed By: #### F ANJUM Cowan, IGA ####[facility] [place] [address] [phone] Chloride [Moles/Vol] 103 mmol/L Normal 97-105 [facility] Comment on above: Result Comment: (NOT E) Reference ranges for this patient's age group have not been established. These reference ranges reflect verified or established ranges for the adult population. Interpret these ranges with caution using the clinical context and additional reference resources. Performed By: #### F ANJUM Cowan, IGA ####[facility] [place], [place] [phone] CO2 [Moles/Vol] 22 mmol/L Normal 22-30 [facility] Comment on above: Result Comment: (NOT E) Reference ranges for this patient's age group have not been established. These reference ranges reflect verified or established ranges for the adult population. Interpret these ranges with caution using the clinical context and additional reference resources. Performed By: #### F ANJUM Cowan IGA ####[facility] [place], [place] [phone] Creatinine [Mass/Vol] 0.64 mg/dL Normal 0.58-0.96 [facility] Comment on above: Result Comment: Refe rence ranges for this patient's age group have not been established. These reference ranges reflect verified or established ranges for the adult population. Interpret these ranges with caution using the clinical context and additional reference resources. Performed By: #### F ANJUM Cowan IGA ####[facility] [place], [place] [phone] GFR/1.73 sq M predicted among non-blacks MDRD (S/P/Bld) [Vol rate/Area] 0.65 mL/min/{1.73_m2} Normal [facility] Comment on above: Result Comment: eGFR (Estimated GFR) Units of measure: mL/min/1.73 meters squared eGFR in pediatric patients is calculated from the Bedside García equation based on a stable serum creatinine and height. The creatinine assay has been calibrated to be traceable to IDMS. To calculate the patient's eGFR, multiply the given factor by the patient's height (centimeters). An eGFR <60 mL/min/1.73m2 for >3 months is consistent with chronic kidney disease. Refer to KDOQI guidelines for clinical interpretation. Performed By: #### F ANJUM Cowan, IGA ####[facility] [place], [place] [phone] Glucose [Mass/Vol] 108 mg/dL High 74-99 [facility] Comment on above: Result Comment: Refe rence ranges for this patient's age group have not been established. These reference ranges reflect verified or established ranges for the adult population. Interpret these ranges with caution using the clinical context and additional reference resources. The [place] Diabetes Association (ADA) provides guidance for cutoff values for fasting glucose and random glucose. The ADA defines fasting as no caloric intake for at least 8 hours. Fasting plasma glucose results between 100 to 125 mg/dL indicate increased risk for diabetes (prediabetes). Fasting plasma glucose results greater than or equal to 126 mg/dL meet the criteria for diagnosis of diabetes. In the absence of unequivocal hyperglycemia, results should be confirmed by repeat testing. In a patient with classic symptoms of hyperglycemia or hyperglycemic crisis, random plasma glucose results greater than or equal to 200 mg/dL meet the criteria for diagnosis of diabetes. Reference: Standards of Medical Care in Diabetes 2016, [place] Diabetes Association. Diabetes Care. 2016.39(Suppl 1). Performed By: #### F T4, WSR, IGA ####[facility], [place] [phone] Potassium [Moles/Vol] 4.0 mmol/L Normal 3.7-5.1 [facility] Comment on above: Performed By: #### F T4, WSR, IGA ####[facility] [address], [place] [phone] Protein [Mass/Vol] 7.8 g/dL Normal 6.3-8.0 [facility] Comment on above: Result Comment: Refe rence ranges for this patient's age group have not been established. These reference ranges reflect verified or established ranges for the adult population. Interpret these ranges with caution using the clinical context and additional reference resources. Performed By: #### F T4, WSR, IGA ####[facility], [place] [phone] Sodium [Moles/Vol] 138 mmol/L Normal 136-144 [facility] Comment on above: Result Comment: (NOT E) Reference ranges for this patient's age group have not been established. These reference ranges reflect verified or established ranges for the adult population. Interpret these ranges with caution using the clinical context and additional reference resources. Performed By: #### F T4, WSR, IGA ####[facility] [address], [place] [phone] Urea nitrogen [Mass/Vol] 14 mg/dL Normal 5-18 [facility] Comment on above: Result Comment: Refe rence ranges were not locally established for this patient's age group. The normal values are based on the following source: Urea/BUN (package insert v7.0 [place]). [facility], [place], [place], March 2015. Performed By: #### F T4, WSR, IGA ####[facility] [place], [place] [phone] Endomysial IgA Abson 019 Endomysial IgA Abs <1:10 Normal <1:10 [facility] Comment on above: Result Comment: Refe rence Range: Negative < 1:10 Dilution IgA endomysial antibody is a highly sensitive and specific marker for celiac disease in patients with a normal IgA and on a normal diet. Levels reflect the adherence to gluten free diet. Performed By: #### A MYL, CRP, LIPA, VITD, ENDOMY, GLIIGA, TGIGA #### [facility] [address] [address] Free T4on 10-27-2018 Free T4 [Mass/Vol] 1.3 ng/dL Normal 0.8-1.5 [facility] Comment on above: Performed By: #### F T4, WSR, IGA ####[id number] [place], [place] [phone] Gliad Deamidated IgAon 10-27 Gliad IgA Ab 11 Units Normal <20 [facility] Comment on above: Result Comment: Nega tive : < 20 Units Weak Positive : 20 - 30 Units Moderate Pos to Strong Pos: >30 Units The following results were obtained with the [facility] QUANTA Lite Gliadin IgA MIKE. Gliadin IgA values obtained with different manufacturers' assay methods may not be used interchangeably. The magnitude of the reported IgA levels cannot be correlated to an endpoint titer. Performed By: #### A MYL, CRP, LIPA, VITD, ENDOMY, GLIIGA, TGIGA #### [facility] [address] [id number] HISTORY PHYSICALon 9 HISTORY PHYSICAL HNO ID: [id number] Author: Shea Ngo) MD Yandel Service: ? Author Type: Physician Type: HANDP Filed: 10/27/2018 1:48 PM Note Text: Referring MD: This patient was referred by JASMYN Gong for evaluation and management of abdominal complaints and our recommendations will be communicated back (either as a letter or via electronic medical record delivery) to JASMYN Gong. HPI: April Fried is a 18 year old female being seen today in new consultation in pediatric GI clinic secondary to issues with acid reflux. The history is obtained from the parent and patient. Pain that is stabbing in the epigastric and LUQ, radiating to RUQ area. Comes and goes during the day. Sometimes will have no precipitating factors. No food triggers. The pain is sporadic, not always after eating. The pain lasts for a few minutes at a time. The pain occurs a few times during the day. Sometimes feels nausea. She has vomited in the past but not recently. No acid reflux or heartburn symptoms. Pain seems to worsen with greasy foods and fried foods. She does notice issues with feeling very ill when she drinks lactose containing foods. Symptoms have been ongoing for since March. Was started on omeprazole 40mg which did not improve her symptoms. Pain has improved since she has changed her diet. Pain duration: daily - lasts a few minutes Medications tried have included prevacid - did not improve symptoms. She was then started on zofran for vomiting- and the vomiting has stopped now. No other labwork or ultrasounds were completed. Mostly just PICKING TECH that they saw started medications. Bowel movement - daily, medium sized formed piece. Dietary history Breakfast - eggs. Skip sometimes. Lunch - sandwich, ham/cheese. Water. Snacks - denies Dinner - steak, chicken. Not many veggies, but likes fruits. No diarrhea, no hematochezia. All outside records provided by the family were reviewed in detail. Review Of Systems: Constitutional:- trying to actively lose weight. ENDO:- no diabetes or thyroid disease CVS:- No history of heart disease, No history of heart murmurs RESP:- no wheezing, frequent cough or shortness of breath GI:- abdominal pain NEURO:-Normal growth and development. :negative Integumentary:- Negative for lesions, rash, and itching. Musculoskeletal:- Negative Psychiatry:-negative for sleep disturbance and recent psychosocial stressors Hematologic/Lymphatic :-No history of anemia, bruising, bleeding abnormalities. Allergic/Immunologic: -no hay fever or drug allergies All other systems reviewed and negative. Past Medical History: None Medications: None Allergies: ALLERGIES No Known Allergies Surgical: Ear tubes Foot surgery Immunizations: UTD Family History: No GI symptoms in the family Parents - no medical problems Social History: Lives at home with 2 brothers, 7 sisters (half siblings, one full sister, one full brother). One sister is deaf. Ear problems. No recent camping, travel, just swimming in pools Physical Exam: Wt 107.5 kg (237 lb) BMI 39.82 kg/m2 (>99 %ile (Z= 2.39) based on CDC (Girls, 2-20 Years) sumyig-htu-hoo data using vitals from 10/27/2018.)(>99 %ile (Z= 2.34) based on CDC (Girls, 2-20 Years) BMI-for-age based on BMI available as of 10/27/2018.) Last 5 Encounter Wt Readings: Date: Wt: 10/27/2018 107.5 kg (237 lb) (>99 %, Z= 2.39)* General/Constitutiona l:- alert and active in no apparent distress Eyes:- anicteric sclera ENMT: Normal set ears, no nasal discharge, moist mucous membranes Cardiac:- Regular Rate and Rhythm Respiratory:- clear to auscultation Gastrointestinal:- soft, NTTP, non distended, no HSM or masses Hematologic/Lymphatic : No lymphadenopathy /Recal :- deferred exam Musculoskeletal:- full range of motion, no joint swelling or tenderness Skin:-no jaundice Psychiatric - appropriately engaged Labs/Imaging: CMP: No results found for this basename: GLUC,BUN,CREAT,NA,K,C HLOR,CO2,TPROT,ALB,CA ,ALKPHOS,TBILI,AST,AL T No results found for: HB, HCT, WBC, PLT No image results found. Previous labs were reviewed in detail. Previous imaging was reviewed in detail. Impression: April Fried is here in pediatric gastroenterology clinic with symptoms of stabbing RUQ abdominal pain which have been persistent since March, daily, that last several minutes to longer at at [place] and seemt o be worse with greasy/acidic foods and fatty foods.. Medications tried included PPI therapy which was not helpful for 3 months along with zofran which was helpful for nausea and vomiting, which were previously associate dwith the symptoms but have now resolved. She has larger bowel movements on a daily basis and seems to have worse symptoms as well with lactose containing foods. We discussed possible causes of her symptoms including cholecystitis, cholelithiasis, pancreatitis (less likely), pain with fatty foods points more towards a gallbladder issue or IBS. We discussed dietary modification to avoid certain foods that can trigger reflux and a list was provided to the family for review and adjustment including limiting FODMAPs. They should also avoid eating late at night and overeating, as these are triggers as well, along with adding exercise into their lifestyle, which can be helpful. Discussed adding in Bentyl TID to help with pain. We discussed other differentials like celiac disease, thyroid disease, fatty liver disease. Will need ultrasound to r/o abovementioned causes. Would like family to submit stool for H. Pylori and calprotectin to r/o infection and inflammation. Discussed treatment with miralax for suspected constipation which may also be contributing to her symptoms. Plan: Labs and stool studies - letter provided Ultrasound Bentyl 20mg TID Dietary modification discussed in detail Follow up in 6 weeks or sooner santi Humphries MD Pediatric Gastroenterology Staff [facility] CC: Maria Elena James, SOFTWARE DEVELOPMENT SPECIALIST-C [address] [facility] [id number] Normal [facility] IgAon 10-27-2018 IgA [Mass/Vol] 321 mg/dL Normal 78-391 [facility] Comment on above: Performed By: #### F T4, WSR, IGA ####[facility] [place], [place] [phone] Lipaseon 10-27-2018 Lipase [Catalytic activity/Vol] 20 U/L Normal 16-61 [facility] Comment on above: Result Comment: (NOT E) Reference ranges for this patient's age group have not been established. These reference ranges reflect verified or established ranges for the adult population. Interpret these ranges with caution using the clinical context and additional reference resources. Performed By: #### A MYL, CRP, LIPA, VITD, ENDOMY, GLIIGA, TGIGA #### [facility] [address] [place], [place] [address] Sed Rate Westergrenon 2018 Sed Rate Westergren 27 mm/hr High 0-20 [facility] Comment on above: Performed By: #### F T4, WSR, IGA ####[facility] [place], [place] [phone] TSHon 10-27-2018 TSH Qn 3.470 uU/mL Normal 0.510-4.300 [facility] Comment on above: Result Comment: Refe rence ranges were not locally established for this patient's age group. The normal values are based on the following source: Dru W, Kimberly V. Reference Ranges for Adults and Children: Pre-analytical Considerations. [facility] Performed By: #### F T4, WSR, IGA ####[facility] [place], [place] [phone] Transglutaminase IgAon 10-27 Transglutaminase IgA 3 Units Normal <20 [facility] Comment on above: Result Comment: Nega tive : < 20 Units Weak Positive : 20 - 30 Units Moderate Pos to Strong Pos: >30 Units The following results were obtained with the [facility] [employer] Lite h-tTG IgA MIKE. h-tTG IgA values obtained with different manufacturers' assay methods may not be used interchangeably. The magnitude of the reported IgA levels cannot be correlated to an endpoint titer. Performed By: #### A MYL, CRP, LIPA, VITD, ENDOMY, GLIIGA, TGIGA ####[facility] [place], [place] [phone] Vitamin D 25 Hydroxyon 10-27 Vitamin D 25 Hydroxy 15.8 ng/mL Low 31.0-80.0 [facility] Comment on above: Result Comment: Clas sification of 25 [place] Vitamin D status: Insufficiency/Moderate Deficiency: < or = 30 ng/mL Sufficiency/Optimal Levels: 31 to 80 ng/mL Toxicity: > 100 ng/mL Test performed by chemiluminescent immunoassay. Performed By: #### A MYL, CRP, LIPA, VITD, ENDOMY, GLIIGA, TGIGA #### [facility] [address] [place], [place] [address] Message - General Officeon 0 08-07-2018 Message [employer] General Office From: Alethea Chanel To: Alethea Chanel; Sent: 08/07/2018 10:45:02 EDT Subject: Patient left insurance cards Insurance cards were left in the office on visit 08/06/2018. Attempted to call both numbers listed on patients chart and couldnt get through nor leave a voicemail, mailed insurance card to patient. Pt dad called stating they revieved a voicemail. Contacted per at [phone] and advised of above. Normal [facility] Vital Signs Date Time Vital Sign Value Performing Clinician Facility 04-23-2024 10:17-0500 Body weight 99.7 kg [employer] Work Phone: [facility] 04-23-2024 10:17-0500 Diastolic blood pressure 70 mm[Hg] [employer] Work Phone: [facility] 04-23-2024 10:17-0500 Systolic blood pressure 120 mm[Hg] Yony Brittany [employer] Work Phone: [facility] 10-25-2022 10:17-0400 Body temperature 98.06 [degF] Jose Duran [facility] 10-25-2022 10:17-0400 Diastolic blood pressure 80 mm[Hg] Jose Duran [facility] 10-25-2022 10:17-0400 Heart rate 94 /min Jose Roger [facility] 10-25-2022 10:17-0400 Respiratory rate 18 /min Jose Roger [facility] 10-25-2022 10:17-0400 SaO2% (BldA) [Mass fraction] 99 % Jose Roger [facility] 10-25-2022 10:17-0400 Systolic blood pressure 124 mm[Hg] Jose Roger [facility] 12-07-2021 19:19-0400 Body temperature 98.24 [degF] Kaylinn Dokken [facility] 12-07-2021 19:19-0400 Diastolic blood pressure 92 mm[Hg] Kaylinn Dokken [facility] 12-07-2021 19:19-0400 Heart rate 114 /min Kaylinn Dokken [facility] 12-07-2021 19:19-0400 Respiratory rate 16 /min Lashonylinn Dokken [facility] 12-07-2021 19:19-0400 SaO2% (BldA) [Mass fraction] 98 % Kaylinn Dokken [facility] 12-07-2021 19:19-0400 Systolic blood pressure 143 mm[Hg] Kaylinn Dokken [facility] 12-06-2021 07:58-0400 Body temperature 98.06 [degF] Jose Duran [facility] 12-06-2021 07:58-0400 Diastolic blood pressure 80 mm[Hg] Jose Roger [facility] 12-06-2021 07:58-0400 Heart rate 86 /min Jose Duran [facility] 12-06-2021 07:58-0400 Respiratory rate 16 /min Jose Duran [facility] 12-06-2021 07:58-0400 SaO2% (BldA) [Mass fraction] 100 % Jose Duran [facility] 12-06-2021 07:58-0400 Systolic blood pressure 121 mm[Hg] Jose Duran [facility] Encounters Encounter Date Encounter Type Care Provider Facility Start: 04-23-2024 End: 04-23-2024 Bamboo flowsheet Yony Brittany DO Work Phone: [facility] Start: 04-23-2024 End: 04-23-2024 Bamboo flowsheet Yony Brittany DO Work Phone: [facility] Start: 04-23-2024 End: 04-23-2024 ambulatory YONY BRITTANY Not Available Start: 04-23-2024 End: 04-23-2024 Office outpatient visit 15 minutes Yony Brittany DO Work Phone: [facility] Comment on above: 15 weeks gestation o f ; Second trimester Start: 04-13-2024 End: 04-13-2024 Clinisync Result Encounter Yony Brittany DO Work Phone: [facility] Unsolicited Start: 04-13-2024 End: 04-13-2024 Clinisync Result Encounter Yony Brittany DO Work Phone: [facility] Unsolicited Start: 03-12-2024 End: 03-12-2024 ambulatory SARAH MCKEON Not Available Start: 03-12-2024 End: 03-12-2024 flow sheet Sarah Mckeon SOFTWARE DEVELOPMENT SPECIALIST Work Phone: [facility] Comment on above: GA: [id number] Start: 10-31-2022 End: 11-01-2022 ambulatory Ivelisse Leger [place] [place] Start: 10-31-2022 End: 10-31-2022 Patient encounter procedure Ivelisse Leger [facility] Start: 10-25-2022 End: 10-25-2022 Emergency department patient visit Jose Duran [place] [place] Start: 10-25-2022 End: 10-25-2022 Emergency department patient visit Jose Duran [facility] Start: 12-09-2021 End: 12-10-2021 ambulatory MEGAN Hernandez QUIQUECLAUDIO Facility:[facility] Start: 12-07-2021 End: 12-07-2021 Emergency department patient visit Sdnaresh Cedrick Raj [place] [place] Start: 12-07-2021 End: 12-07-2021 Emergency department patient visit Lashondank Cedrick Hugorubi [facility] Start: 12-06-2021 End: 12-06-2021 Emergency department patient visit Jose Duran [place] [place] Start: 12-06-2021 End: 12-06-2021 Emergency department patient visit Jose Duran [facility] Start: 05-08-2021 End: 08-06-2021 Patient encounter procedure Kwasi Pop III [facility] Start: 08-28-2018 Patient encounter procedure Maria Elena James Facility:[id number] Start: 08-06-2018 End: 08-07-2018 Patient encounter procedure Maria Elena James Facility:[id number] Procedures Date Procedure Procedure Detail Performing Clinician Start: 04-23-2024 Urnls dip stick/tabl et rgnt non-auto w/o micrscp Yony Beyero DO Work Phone: Start: 04-13-2024 MLR HEMOGLOBIN A1C Core y Brittany DO Work Phone: Start: 04-29-2003 bilateral tubes in ears Kwasi Pop III Plan of Treatment Date Care Activity Detail Author Start: 05-20-2024 End: 05-20-2024 Patient encounter procedure 05/20/2024 10:30 AM EST Routine [facility] [address] [facility] [place] [address] Mimi Lanza PA [address] [place] [address] [facility] Start: 04-23-2024 End: 05-24-2024 Alpha fetoprotein, maternal Alpha fetoprotein, maternal Lab Routine 15 weeks gestation of Expected: 04/23/2024 (Approximate), Expires: 05/24/2024 [facility] Work Phone: Comment on above: Expected: 04/23/2024 (Approximate), Expires: 05/24/2024 Start: 04-23-2024 End: 04-23-2024 Patient encounter procedure 04/23/2024 9:30 AM EST Routine [facility] [place] [address] Yony Soto, DO [facility] [place] [address] [facility] Start: 04-15-2024 End: 04-15-2024 Professional / ancillary services management 04/15/2024 11:00 AM EST Ancillary Procedure [facility] [address] [place] [address] [facility] Start: 04-11-2024 End: 03-12-2025 ABO/Rh ABO/Rh Lab Routine Encounter for supervision of normal first in first trimester 9 weeks gestation of Expected: 04/11/2024 (Approximate), Expires: 03/12/2025 [facility] Work Phone: Comment on above: Expected: 04/11/2024 (Approximate), Expires: 03/12/2025 Start: 04-11-2024 End: 03-12-2025 Antibody screen Antibody screen Lab Routine Encounter for supervision of normal first in first trimester 9 weeks gestation of Expected: 04/11/2024 (Approximate), Expires: 03/12/[address] [facility] Comment on above: Expected: 04/11/2024 (Approximate), Expires: 03/12/2025 Start: 04-11-2024 End: 03-12-2025 Bacteria identified in Urine by Culture Urine culture Microbiology Routine Encounter for supervision of normal first in first trimester 9 weeks gestation of Expected: 04/11/2024 (Approximate), Expires: 03/12/2025 [facility] Comment on above: Expected: 04/11/2024 (Approximate), Expires: 03/12/2025 Start: 04-11-2024 End: 03-12-2025 CBC W Auto Differential panel - Blood CBC and differential Lab Routine Encounter for supervision of normal first in first trimester 9 weeks gestation of Expected: 04/11/2024 (Approximate), Expires: 03/12/2025 [facility] Comment on above: Expected: 04/11/2024 (Approximate), Expires: 03/12/2025 Start: 04-11-2024 End: 03-12-2025 Drugs of abuse panel - Urine by Screen method Rapid drug screen, urine Lab Routine Encounter for supervision of normal first in first trimester 9 weeks gestation of Expected: 04/11/2024 (Approximate), Expires: 03/12/[address] [facility] Comment on above: Expected: 04/11/2024 (Approximate), Expires: 03/12/2025 Start: 04-11-2024 End: 03-12-2025 Hemoglobin A1c/Hemoglobin.total in Blood Hemoglobin A1c Lab Routine Encounter for supervision of normal first in first trimester 9 weeks gestation of Expected: 04/11/2024 (Approximate), Expires: 03/12/2025 [facility] Comment on above: Expected: 04/11/2024 (Approximate), Expires: 03/12/2025 Start: 04-11-2024 End: 03-12-2025 Hepatitis B virus surface Ag [Presence] in Serum or Plasma by Immunoassay Hepatitis B surface Ag Lab Routine Encounter for supervision of normal first in first trimester 9 weeks gestation of Expected: 04/11/2024 (Approximate), Expires: 03/12/[address] [facility] Comment on above: Expected: 04/11/2024 (Approximate), Expires: 03/12/2025 Start: 04-11-2024 End: 03-12-2025 HIV-1/HIV-2 antigen/antibody combination immunoassay HIV-1 and HIV-2 antibodies Lab Routine Encounter for supervision of normal first in first trimester 9 weeks gestation of Expected: 04/11/2024 (Approximate), Expires: 03/12/2025 [facility] Comment on above: Expected: 04/11/2024 (Approximate), Expires: 03/12/2025 Start: 04-11-2024 End: 03-12-2025 Reagin Ab [Presence] in Serum by RPR RPR Lab Routine Encounter for supervision of normal first in first trimester 9 weeks gestation of Expected: 04/11/2024 (Approximate), Expires: 03/12/2025 [facility] Comment on above: Expected: 04/11/2024 (Approximate), Expires: 03/12/2025 Start: 04-11-2024 End: 03-12-2025 Rubella IgG Rubella IgG Lab Routine Encounter for supervision of normal first in first trimester 9 weeks gestation of Expected: 04/11/2024 (Approximate), Expires: 03/12/[address] [facility] Comment on above: Expected: 04/11/2024 (Approximate), Expires: 03/12/2025 Start: 04-02-2024 End: 04-02-2024 ambulatory 04/02/2024 1:40 PM EST Initial [facility] [address] [phone] Sarah Mckeon NP [address] [place] [address] [facility] Start: 03-23-2024 End: 03-23-2024 Professional / ancillary services management 03/23/2024 4:00 PM EST Ancillary Procedure [facility] [address] [place] [address] [address] [facility] Immunizations Immunization Date Immunization Notes Care Provider Fa cility 04-17-2021 meningococcal B vaccine, fully recombinant Jose Roger [facility] 02-24-2021 meningococcal ACWY vaccine, unspecified formulation Jose Roger [facility] Comment on above: Result Comment: 2021: VFC STOCK USED 02-24-2021 meningococcal B vaccine, fully recombinant Jose Roger [facility] Comment on above: Result Comment: 2021: C STOCK BORROWED 11-12-2016 hepatitis A vaccine, adult dosage Kwasi Pop III [facility] 11-12-2016 HPV, unspecified formulation Kwasi Opp III [facility] 12-16-2015 hepatitis A vaccine, adult dosage Kwasi Pop III [facility] 12-16-2015 HPV, unspecified formulation Kwasi Pop III [facility] 12-16-2015 meningococcal ACWY vaccine, unspecified formulation Kwasi Pop III [facility] 12-16-2015 tetanus and diphther ia toxoids, adsorbed, preservative free, for adult use (2 Lf of tetanus toxoid and 2 Lf of diphtheria toxoid) Kwasi Pop III [facility] 12-31-2006 diphtheria, tetanus toxoids and acellular pertussis vaccine Jose Roger [facility] 12-31-2006 measles, mumps and rubella virus vaccine Kwasi Pop III [facility] 12-31-2006 poliovirus vaccine, unspecified formulation Kwasi Pop III [facility] 12-31-2006 tetanus toxoid, reduced diphtheria toxoid, and acellular pertussis vaccine, adsorbed Kwasi Pop III [facility] 01-17-2004 influenza virus vaccine, unspecified formulation Jose Roger [facility] 01-17-2004 pneumococcal conjuga te vaccine, 13 valent Kwasi Pop III [facility] 08-18-2003 DTaP, unspecified formulation Jose Duran [facility] 08-18-2003 haemophilus influenz ae type b vaccine, HbOC conjugate Kwasi Pop III [facility] 04-27-2003 DTaP, unspecified formulation Jose Duran [facility] 04-27-2003 haemophilus influenz ae type b vaccine, HbOC conjugate Kwasi Pop III [facility] 04-27-2003 hepatitis B vaccine, adult dosage Kwasi Pop III [facility] 04-27-2003 influenza virus vaccine, unspecified formulation Jose Roger [facility] 04-27-2003 pneumococcal conjuga te vaccine, 13 valent Kwasi Pop III [facility] 04-27-2003 poliovirus vaccine, unspecified formulation Kwasi Pop III [facility] 04-27-2003 tetanus toxoid, reduced diphtheria toxoid, and acellular pertussis vaccine, adsorbed Kwasi Pop III [facility] 01-29-2003 DTaP, unspecified formulation Jose Duran [facility] 01-29-2003 haemophilus influenz ae type b vaccine, HbOC conjugate Kwasi Pop III [facility] 01-29-2003 hepatitis B vaccine, adult dosage Kwasi Pop III [facility] 01-29-2003 measles, mumps and rubella virus vaccine Kwasi Pop III [facility] 01-29-2003 poliovirus vaccine, unspecified formulation Kwasi Pop III [facility] 01-29-2003 tetanus toxoid, reduced diphtheria toxoid, and acellular pertussis vaccine, adsorbed Kwasi Opp III [facility] 01-29-2003 varicella virus vaccine Kwasi Pop III [facility] 2002 DTaP, unspecified formulation Jose Duran [facility] 2002 haemophilus influenz ae type b vaccine, HbOC conjugate Kwasi Pop III [facility] 2002 hepatitis B vaccine, adult dosage Kwasi Pop III [facility] [facility] 2002 pneumococcal conjuga te vaccine, 13 valent Kwasi Pop III [facility] 2002 poliovirus vaccine, unspecified formulation Kwasi Pop III [facility] 2002 tetanus toxoid, reduced diphtheria toxoid, and acellular pertussis vaccine, adsorbed Kwasi Pop III [facility] 2002 hepatitis B vaccine, adult dosage Kwasi Pop III [facility] NEGATED: Highlighted row has not occurred!08-28-2018 influenza virus vaccine, unspecified formulation Kwasi Pop III [facility] Payers Date Payer Category [place] [id number] 2022 Unknown [id number] 2021 Unknown [id number] 2018 Unknown [id number] 2002 Unknown [id number] 2002 Unknown [id number] 2002 Unknown [id number] 2002 Unknown [id number] 2002 Unknown [id number] 2002 Unknown [id number] 1978 Unknown [id number] 1978 Unknown [id number] Social History Date Type Detail Facility Start: 06-15-2021 End: 03-12-2024 Tobacco smoking status Never smoked tobacco (finding) [facility] Comment on above: denies Denies Tobacco smoking status Never [facility] Comment on above: denies Denies Start: 03-12-2024 Sex Assigned At Female F [facility] Start: 03-12-2024 Tobacco use and exposure Smokeless tobacco non-user [facility] Start: 03-12-2024 End: 04-23-2024 Alcoholic beverage intake Ex-drinker (finding) [facility] Start: 03-12-2024 History of Social function [facility] Within the last year , have you been afraid of your partner or ex-partner? No [facility] Are you now , , , , never or living with a partner? Living with partner [facility] How often to you hav e a drink containing alcohol? Monthly or less [facility] How many standard drinks containing alcohol do you have on a typical day? 1 or 2 [facility] How often do you hav e 6 or more drinks on 1 occasion? Never [facility] Do you feel stress - tense, restless, nervous, or anxious, or unable to sleep at night because your mind is troubled all the time - these days [OSQ] Only a little [facility] (I/We) worried wheth er (my/our) food would run out before (I/we) got money to buy more. Never true [facility] Start: 03-12-2024 Education 13 [facility] Start: 01-22-2024 [facility] Start: 2002 Sex assigned at Not on file [facility] Functional Status Date Assessment Result Facility 10-25-2022 Functional Status N/A [facility] 12-07-2021 Functional Status N/A [facility] 12-06-2021 Functional Status N/A [facility] Clinical Notes 07-05-2021 to 04-23-2024 Kaya Hernandez, CLAUDIA - 04/23/2024 9:30 AM ESTSchema Eden LPN - 03/12/2024 9:30 AM EST Note Date & Type Note Facility 04-23-2024 History of Present illness Narrative Reason for Appointment: Patient ID: April Puente is a 24 y.o. female who presents for Routine Visit Patient presents today for Return OB appointment. MEDICATIONS Current Outpatient Medications Medication Instructions GENERIC EXTERNAL MEDICATION 1 tablet, Daily ALLERGIES No Known Allergies PROBLEMS Active Ambulatory Problems Diagnosis Date Noted No Active Ambulatory Problems Resolved Ambulatory Problems Diagnosis Date Noted No Resolved Ambulatory Problems Past Medical History: Diagnosis Date Varicella HISTORY PAST MEDICAL HISTORY SOCIAL HISTORY Past Medical History: Diagnosis Date Varicella Social History Tobacco Use Smoking status: Never Smokeless tobacco: Never Vaping Use Vaping status: Never Used Substance Use Topics Alcohol use: Not Currently Drug use: Yes Frequency: 4.0 times per week Types: Marijuana Comment: stopped as soon as positive preg. test FAMILY HISTORY No family history on file. SURGICAL HISTORY History reviewed. No pertinent surgical history. REVIEW OF SYSTEMS Review of Systems: Review of Systems Constitutional: Negative. HENT: Negative. Eyes: Negative. Respiratory: Negative. Cardiovascular: Negative. Gastrointestinal: Negative. Genitourinary: Negative. Musculoskeletal: Negative. Skin: Negative. Neurological: Negative. All other systems reviewed and are negative. Hematological: Negative. Endocrine: Negative. Allergic/Immunologic: Negative. OBJECTIVE Objective: Physical Exam Constitutional: Appearance: Normal appearance. She is well-developed. Cardiovascular: Rate and Rhythm: Normal rate and regular rhythm. Pulmonary: Effort: Pulmonary effort is normal. Breath sounds: Normal breath sounds. Abdominal: General: Bowel sounds are normal. There is no distension. Palpations: Abdomen is soft. Tenderness: There is no abdominal tenderness. There is no guarding or rebound. Musculoskeletal: General: No swelling. Normal range of motion. Right lower leg: No edema. Left lower leg: No edema. Neurological: Mental Status: She is alert and oriented to person, place, and time. Skin: General: Skin is warm and dry. Psychiatric: Mood and Affect: Mood normal. Behavior: Behavior normal. Vitals and nursing note reviewed. Exam conducted with a outside installation machinist present. Vitals: Estimated body mass index is 38.58 kg/m as calculated from the following: Height as of 08/22/18: 5' 6 . Weight as of 08/22/18: 239 lb. BP: 120/70 Patient's last menstrual period was 01/08/2024. ASSESSMENT & PLAN ICD-10-CM 1. 15 weeks gestation of Z3A.15 Alpha fetoprotein, maternal Alpha fetoprotein, maternal POCT urinalysis dipstick manually resulted 2. Second trimester Z34.92 POCT urinalysis dipstick manually resulted New OB: Patient presents today for 1st time obstetrics appointment with provider. Patient is currently 15w1d . Patients history has been reviewed in great detail including any potential risks. Patient stated she currently has no complaints. Expectations throughout regarding labs, ultrasounds, and appointments have been discussed with the patient in detail. It was reiterated that the patient is to drink 6-8 glasses of water a day, eat 6 small meals a day, do not consume raw or undercooked meat, and stay away from [facility]. Patient has been consulted regarding any further do's and don'ts of . Patient voiced understanding and all questions and concerns were answered. Orders Placed This Encounter Procedures Alpha fetoprotein, maternal POCT urinalysis dipstick manually resulted Follow Up: Patient is to return in 4 weeks for routine OB appointment. Documented by Kaya Hernandez LPN on behalf of: Yony Soto DO documented in this encounter [facility] 03-12-2024 History of Present illness Narrative Subjective April Weinberg is a 24 y.o. at 9w1d with a working estimated date of delivery of 10/14/2024, by Last Menstrual Period who presents for an initial visit. This is planned. OB History Para Term AB Living 1 0 0 0 0 0 SAB IAB Ectopic Multiple Live Births 0 0 0 0 0 # Outcome Date GA Lbr Zaire/2nd Weight Sex Type Anes PTL Lv 1 Current Objective Physical Exam Expected Total Weight Gain: 11 lb-19 lb Pregravid BMI: 35.53 Never had chickenpox but is vaccinated, will breastfeed Immunizations: Up to dater Labs ordered & printed [place] [facility] [place] Daily vitamins OTC NatureMade PNV w/DHA & folic acid First trimester screening and second trimester screening discussed. Wants Genetic and Chromosomal Testing documented in this encounter [facility] 10-31-2022 Evaluation + Plan note Diagnostic Tests PendingFSH and LH 10/31/22Insulin Level Total 10/31/22Testosterone Level Total 10/31/22DHEAS 10/31/22 [facility] 10-25-2022 Evaluation + Plan note Extrac nohelia from: Title:ED Note Author:Carlos Han PA-C te:10/25/22 Hand contusion (S60.229A: Co ntusion of unspecified hand, initial encounter) Orders: XR Hand 3+ Views Right Future Appointments Appointment Date:10/31/2022 09:00:00 AM Scheduled Provider: Location:.[facility] Appointment Type:US Abdominal/Pelvis (FT) Future Scheduled Tests Radiology* US Pelvis Non-OB Complete 10/31/22 [facility]06-29-2023 Hospital Discharge instructions Patient Education 10/25/2022 11:18:50 Hand Contusion Hand Contusion A hand contusion is a deep bruise to the hand. Contusions are the result of a blunt injury to tissues and muscle fibers under the skin. The injury causes bleeding under the skin. The skin overlying the contusion may turn blue, purple, or yellow. Minor injuries may cause a painless contusion, but more severe injuries may cause contusions that stay painful and swollen for a few weeks. What are the causes? This condition is usually caused by a hard hit or direct force to your hand, such as having a heavyobject fall on your hand. What are the signs or symptoms? Symptoms of this condition include: A swollen hand. Pain and tenderness in your hand. Discoloration of your hand. The area may have redness and then turn blue, purple, or yellow. How is this diagnosed? This condition is diagnosed based on: A physical exam. Your medical history. Imaging studies, such as: ?An X-ray. This may be needed to check for other injuries, such as broken bones (fractures). ?A CT scan or an MRI. This may be done if your health care provider thinks you have torn or injuredligaments. How is this treated? This condition may be treated with: Rest, ice, pressure (compression), and raising (elevating) the injured area. This is often called RICE therapy. An elastic wrap to support your hand. Luso-bnb-ylszxmq medicines to control pain. Follow these instructions at home: RICE therapy Rest the injured area. If directed, put ice on the injured area. ?Put ice in a plastic bag. ?Place a towel between your skin and the bag. ?Leave the ice on for 20 minutes, 2 3 times a day. If directed, apply light compression to the injured area using an elastic wrap. ?Make sure the wrap is not too tight. ?If your fingers become numb or turn cold or blue, take the wrap off and reapply it more loosely. ?Remove and reapply the wrap as told by your health care provider. Raise (elevate) the injured area above the level of your heart while you are sitting or lying down. General instructions Take znpl-dqp-gemwmex and prescription medicines only as told by your health care provider. Protect your hand from getting injured further. Keep all follow-up visits as told by your health care provider. This is important. Contact a health care provider if: Your symptoms do not improve after several days of treatment. You have increased redness, swelling, or pain in your hand or fingers. You have difficulty moving the injured area. Your swelling or pain is not relieved with medicines. Get help right away if: You have severe pain. Your hand or fingers become numb. Your hand or fingers turn pale, blue, or cold. You cannot move your hand or wrist. Your hand is warm to the touch. Summary A hand contusion is a deep bruise to the hand. Contusions are the result of a blunt injury to tissues and muscle fibers under the skin. This injury is treated with rest, ice, compression and elevation. This information is not intended to replace advice given to you by your health care provider. Make sure you discuss any questions you have with your health care provider. Document Revised: 08/03/2021 Document Reviewed: 08/03/2021 Elsevier Patient Education 2022 [employer]. Follow Up Care 10/25/2022 10:12:59 With:Kathy Kraus Address: [address] [place] [address] [phone] Business (1) When:10/28/2022 11:08:00 [facility]08-11-2022 Hospital Discharge instructions Patient Education 12/07/2021 19:56:20 Cellulitis, Adult, Ywev-uo-Ndtj Cellulitis, Adult Cellulitis is a skin infection. The infected area is often warm, red, swollen, and sore. It occurs most often in the arms and lower legs. It is very important to get treated for this condition. What are the causes? This condition is caused by bacteria. The bacteria enter through a break in the skin, such as a cut, burn, insect bite, open sore, or crack. What increases the risk? This condition is more likely to occur in people who: Have a weak body defense system (immune system). Have open cuts, travis, bites, or scrapes on the skin. Are older than 60 years of age. Have a blood sugar problem (diabetes). Have a long-lasting (chronic) liver disease (cirrhosis) or kidney disease. Are very overweight (obese). Have a skin problem, such as: ?Itchy rash (eczema). ?Slow movement of blood in the veins (venous stasis). ?Fluid buildup below the skin (edema). Have been treated with high-energy rays (radiation). Use IV drugs. What are the signs or symptoms? Symptoms of this condition include: Skin that is: ?Red. ?Streaking. ?Spotting. ?Swollen. ?Sore or painful when you touch it. ?Warm. A fever. Chills. Blisters. How is this diagnosed? This condition is diagnosed based on: Medical history. Physical exam. Blood tests. Imaging tests. How is this treated? Treatment for this condition may include: Medicines to treat infections or allergies. Home care, such as: ?Rest. ?Placing cold or warm cloths (compresses) on the skin. Hospital care, if the condition is very bad. Follow these instructions at home: Medicines Take teoc-bdt-ybzacec and prescription medicines only as told by your doctor. If you were prescribed an antibiotic medicine, take it as told by your doctor. Do not stop taking it even if you start to feel better. General instructions Drink enough fluid to keep your pee (urine) pale yellow. Do not touch or rub the infected area. Raise (elevate) the infected area above the level of your heart while you are sitting or lying down. Place cold or warm cloths on the area as told by your doctor. Keep all follow-up visits as told by your doctor. This is important. Contact a doctor if: You have a fever. You do not start to get better after 1 2 days of treatment. Your bone or joint under the infected area starts to hurt after the skin has healed. Your infection comes back. This can happen in the same area or another area. You have a swollen bump in the area. You have new symptoms. You feel ill and have muscle aches and pains. Get help right away if: Your symptoms get worse. You feel very sleepy. You throw up (vomit) or have watery poop (diarrhea) for a long time. You see red streaks coming from the area. Your red area gets larger. Your red area turns dark in color. These symptoms may represent a serious problem that is an emergency. Do not wait to see if the symptoms will go away. Get medical help right away. Call your local emergency services (911 in the [place] Do not drive yourself to the hospital. Summary Cellulitis is a skin infection. The area is often warm, red, swollen, and sore. This condition is treated with medicines, rest, and cold and warm cloths. Take all medicines only as told by your doctor. Tell your doctor if symptoms do not start to get better after 1 2 days of treatment. This information is not intended to replace advice given to you by your health care provider. Make sure you discuss any questions you have with your health care provider. Document Released: 10/01/2008 Document Revised: 09/04/2018 Document Reviewed: 09/04/2018 [employer] Patient Education 2020 [employer]. Follow Up Care 12/07/2021 19:18:58 With:Kathy Kraus Address: [address] [place] [address] [place] [phone] Business (1) When:12/10/2021 19:43:43 Comments:Take the antibiotics as prescribed you have completed the course. Please follow-up with your primary care doctor next 2 to 3 days. You can take the naproxen every 12 hours as needed for pain you can also take the Dairy every 6 hours as needed for pain. Please return the ED for any new or worsening s ymptoms. [facility]08-11-2022 Evaluation + Plan noteExtracted from: Title:ED Note Author:Virginie Anthony DO Date :12/07/21 Cellulitis of face (L03.211: Cellulitis of face) Orders: acetaminophen-hydrocodone, 1 EA, Tab, Oral, Once, Stop date 12/07/21 19:42:00 EDT, STAT, Start date 12/07/21 19:42:00 EDT amoxicillin-clavulanate, 1 tab(s), Tab, Oral, Once, Stop date 12/07/21 19:41:00 EDT, STAT, Start date 12/07/21 19:41:00 EDT amoxicillin-clavulanate, 1 tab(s), Oral, q12hr for 10 day(s), 20 tab(s), Refill(s) 0 naproxen, 500 mg = 1 tab(s), Oral, BID, PRN for pain, # 20 tab(s), Refills(s) 0 naproxen, 500 mg = 2 tab(s), Tab, Oral, Once, Stop date 12/07/21 19:42:00 EDT, STAT, Start date 12/07/21 19:42:00 EDT, 12/07/21 19:42:00 EDT Future Scheduled Tests Laboratory* Fecal WBC Lactoferrin 07/05/21 * Fecal WBC Lactoferrin 04/13/21 * Giardia lamblia, Direct Detection EIA 07/05/21 * Giardia lamblia, Direct Detection EIA 04/13/21 * O & P Exam, Routine 07/05/21 * O & P Exam, Routine 04/13/21 * Rotavirus Ab 07/05/21 * Rapid COVID Antigen ([facility]) 04/13/21 * Clostridium difficile by PCR 07/05/21 * Clostridium difficile by PCR 04/13/21 * Stool Occult Blood 04/13/21 * Enteric Panel by PCR 07/05/21 * Enteric Panel by PCR 04/13/21 * CBC w/ Auto Diff 06/15/21 * CBC w/ Auto Diff 06/15/21 * Comprehensive Metabolic Panel 06/15/21 * Mononucleosis Screen 04/13/21 [facility]08-10-2022 Evaluation + Plan noteExtracted from: Title:ED Note Author:Carlos Han PA-C te:12/06/21 Otitis externa (H60.90: Unsp ecified otitis externa, unspecified ear) Orders: ciprofloxacin-dexamethasone otic, 4 drop(s), Ear-Right, BID for 7 day(s), 10 mL, Refill(s) 0, [facility]/pharmacy #[id number], 168, cm, 12/06/21 8:00:00 EDT, Height/Length Dosing, 107, kg, 12/06/21 8:00:00 EDT, Weight Dosing Future Scheduled Tests Laboratory* Fecal WBC Lactoferrin 07/05/21 * Fecal WBC Lactoferrin 04/13/21 * Giardia lamblia, Direct Detection EIA 07/05/21 * Giardia lamblia, Direct Detection EIA 04/13/21 * O & P Exam, Routine 07/05/21 * O & P Exam, Routine 04/13/21 * Rotavirus Ab 07/05/21 * Rapid COVID Antigen ([facility]) 04/13/21 * Clostridium difficile by PCR 07/05/21 * Clostridium difficile by PCR 04/13/21 * Stool Occult Blood 04/13/21 * Enteric Panel by PCR 07/05/21 * Enteric Panel by PCR 04/13/21 * CBC w/ Auto Diff 06/15/21 * CBC w/ Auto Diff 06/15/21 * Comprehensive Metabolic Panel 06/15/21 * Mononucleosis Screen 04/13/21 [facility]08-10-2022 Hospital Discharge instructions Patient Education 12/06/2021 08:13:26 Otitis Externa Otitis Externa Otitis externa is an infection of the outer ear canal. The outer ear canal is the area between the outside of the ear and the eardrum. Otitis externa is sometimes called swimmer's ear. What are the causes? Common causes of this condition include: Swimming in dirty water. Moisture in the ear. An injury to the inside of the ear. An object stuck in the ear. A cut or scrape on the outside of the ear. What increases the risk? You are more likely to develop this condition if you go swimming often. What are the signs or symptoms? The first symptom of this condition is often itching in the ear. Later symptoms of the condition include: Swelling of the ear. Redness in the ear. Ear pain. The pain may get worse when you pull on your ear. Pus coming from the ear. How is this diagnosed? This condition may be diagnosed by examining the ear and testing fluid from the ear for bacteria and funguses. How is this treated? This condition may be treated with: Antibiotic ear drops. These are often given for 10 14 days. Medicines to reduce itching and swelling. Follow these instructions at home: If you were prescribed antibiotic ear drops, use them as told by your health care provider. Do not stop using the antibiotic even if your condition improves. Take zxzp-xcn-mbzrpul and prescription medicines only as told by your health care provider. Avoid getting water in your ears as told by your health care provider. This may include avoiding swimming or water sports for a few days. Keep all follow-up visits as told by your health care provider. This is important. How is this prevented? Keep your ears dry. Use the corner of a towel to dry your ears after you swim or bathe. Avoid scratching or putting things in your ear. Doing these things can damage the ear canal or remove the protective wax that lines it, which makes it easier for bacteria and funguses to grow. Avoid swimming in lakes, polluted water, or pools that may not have enough chlorine. Contact a health care provider if: You have a fever. Your ear is still red, swollen, painful, or draining pus after 3 days. Your redness, swelling, or pain gets worse. You have a severe headache. You have redness, swelling, pain, or tenderness in the area behind your ear. Summary Otitis externa is an infection of the outer ear canal. Common causes include swimming in dirty water, moisture in the ear, or a cut or scrape in the ear. Symptoms include pain, redness, and swelling of the ear. If you were prescribed antibiotic ear drops, use them as told by your health care provider. Do not stop using the antibiotic even if your condition improves. This information is not intended to replace advice given to you by your health care provider. Make sure you discuss any questions you have with your health care provider. Document Released: 04/15/2006 Document Revised: 09/19/2018 Document Reviewed: 09/19/2018 [employer] Patient Education 2020 [employer]. Follow Up Care 12/06/2021 07:57:14 With:Kathy Kraus Address: [facility] [address] [place] [phone] Business (1) When:12/09/2021 08:05:03 [facility]03-09-2022 Evaluation + Plan note Future Scheduled Tests Laboratory* Fecal WBC Lactoferrin 07/05/21 * Fecal WBC Lactoferrin 04/13/21 * Giardia lamblia, Direct Detection EIA 07/05/21 * Giardia lamblia, Direct Detection EIA 04/13/21 * O & P Exam, Routine 07/05/21 * O & P Exam, Routine 04/13/21 * Rotavirus Ab 07/05/21 * Rapid COVID Antigen ([facility]) 04/13/21 * Clostridium difficile by PCR 07/05/21 * Clostridium difficile by PCR 04/13/21 * Stool Occult Blood 04/13/21 * Enteric Panel by PCR 07/05/21 * Enteric Panel by PCR 04/13/21 * CBC w/ Auto Diff 06/15/21 * CBC w/ Auto Diff 06/15/21 * Comprehensive Metabolic Panel 06/15/21 * Mononucleosis Screen 04/13/21 [facility] En[facility] for supervision of normal first in first trimester 9 weeks gestation of [facility] Diagnosis 15 weeks gestation of Second trimester state, incidental [facility] Narrative No data available for this section [facility] No data available for this section [facility] No data available for this section [facility] Summary Purpose Family History No Family History Records FoundNo Family History Records FoundNo Family History Records FoundNo Family History Records Found Advance Directives No Advanced Directives Records FoundNo Advanced Directives Records FoundNo Advanced Directives Records FoundNo Advanced Directives Records Found Additional Source Comments INFORMATION SOURCE (unrecogn ized section and content) DATE CREATED AUTHOR 08/08/2018 [facility] DATE CREATED AUTHOR AUTHOR'S ORGANIZ ATION 02/10/2019 [facility] DATE CREATED AUTHOR AUTHOR'S ORGANIZ ATION 11/01/2022 [facility] DATE CREATED AUTHOR AUTHOR'S ORGANIZ ATION 04/24/2024 [facility] EPIC Care Team (unrecognized sect ion and content) Personnel Name: Kathy Kraus NP Address: [address] [place] [address] Personnel Name: Kathy Kraus NP Address: [address] [facility] [address] [place] [address] Personnel Name: Efra SHARMILAKathy Address: Address: [address] [place] [address] [address] [place] [id number] Personnel Name: Kathy Kraus NP Address: Address: [address] [place], [place] [id number] Reason for Visit (unrecogniz ed section and content) Reason Comments Routine Visit FOR RECORDS PERTAINING TO PATIENTS WHO ARE OR HAVE BEEN ENROLLED IN A CHEMICAL DEPENDENCY/SUBSTANCEABUSE PROGRAM, SOME INFORMATION MAY BE OMITTED. This clinical summary was aggregated from multiple sources. Caution should be exercised in using it in the provision of clinical care. This summary normalizes information from multiple sources, and as a consequence, information in this document may materially change the coding, format and clinical context of patient data. In addition, data may be omitted in some cases. CLINICAL DECISIONS SHOULD BE BASED ON THE PRIMARY CLINICAL RECORDS. [employer] provides no warranty or guarantee of the accuracy or completeness of information in this document.
[2024-05-19 23:07] LABS: AFP Value 40.6 ng/mL (.); Gest. Age on Collection Date 18.7 weeks (.); Insulin Dep Diabetes No (.); Maternal Age At EDD 22.7 yr (.); OSBR Risk 1 IN 9231 (.); Results Report (.)
== END 2024-05-18 11:55 | disposition home or self-care (01) ==
PROVIDERS: Visit Provider Obstetrics & Gynecology
DX: Z34.92 Encounter for supervision of normal pregnancy, unspecified, second trimester (principal); Z3A.15 15 weeks gestation of pregnancy
CPT/HCPCS: 36415; 82105

== ENCOUNTER 2024-05-20 19:05 | Outpatient (REF) | payer MEDICAID, SELFPAY ==
--- OUTSIDE RECORDS SUMMARY | 2024-05-20 19:09 | XMS_ITS | CCD ---
Author Organization [facility] Care Team Providers Care Packaging Engineer Name Role Phone Maria Elena James Attending Unavailable Horn, Maria Elena Primary Care Unavailable Maria Elena James Attending Unavailable Jacob, Maria Elena Primary Care Unavailable Kathy Kraus Primary Care Physician Virginie Anthony Attending Unavailable Jose Duran Attending [...] Medication Allergies] Propensity to adverse reactions (disorder) [facility] Repository Medications Current Medications Medication Drug [...] for 7 day(s), 10 mL, Refill(s) 0, [facility]/pharmacy #[id number], 168, cm, 12/06/21 8:00:00 EDT, Height/Length Dosing, 107, kg, 12/06/21 8:00:00 EDT, Weight Dosing Start Date: 12/06/21 Stop Date: 12/13/21 Status: Ordered fluticasone propionate 0.05 mg/actuat metered dose nasal spray (1 source) Corticosteroid Start: 01-16-2021 take 1 spray(s) nasal route twice daily fluticasone 0.05 mg/inh Nasal Landenberg 1 spray(s), Nasal, BID, 16 gram, Refill(s) 5, each nostril, [facility]pharm[facility] #[id number], 168, cm, 01/16/21 11:00:00 EDT, Height/Length Dosing, 109.7, kg, 01/16/21 11:00:00 EDT, Weight Dosing Start Date: 01/16/21 Status: Ordered fluticasone 0.05 mg/inh Nasal [place] (1 source) Start: 01-16-2021 take 1 spray(s) nasal route twice daily fluticasone 0.05 mg/inh Nasal [place] 1 spray(s), Nasal, BID, 16 gram, Refill(s) 5, each nostril, [facility]/pharm[facility] #[id number], 168, cm, 01/16/21 11:00:00 EDT, Height/Length Dosing, 109.7, kg, 01/16/21 11:00:00 EDT, Weight Dosing Start Date: 01/16/21 Status: Ordered GENERIC EXTERNAL MEDICATION (7 sources) take 1 tablet by mouth once [...] nausea/vomiting, # 60 tab(s), Refills(s) 1, Pharmacy: [facility]/pharmacy #[id number], 168, cm, 04/03/21 14:43:00 EST, Height/Length [...] Test Name Value Interpretation Reference Range Facility AFP, SERUM, OPEN SPINA BIFID Aon 05-19-2024 AFP MOM 1.09 . [facility] AFP VALUE 40.6 ng/mL . [facility] COMMENT: Comment . [facility] Comment on above: Torri John , Ph.D., [facility] Director References: Available Upon Request. Multiples Of Median Cutoffs For AFP Elevations Christianson 2.5 Black 2.8 IDD 2.0 Twins 4.5 Abbreviation Definitions IDD - Insulin Dep Diabetes OSBR - Open Spina Bifida Risk For further inquiries contact [facility] at [phone]. This test was developed and its performance characteristics determined by [employer]. It has not been cleared or approved by the Food and Drug Administration. Performed at: [facility] [address] [id number] Case Therapist: Amee Marmolejo Formerly [facility], Phone: [phone] GEST. AGE ON COLLECTION DATE 18.7 . weeks [facility] GESTAT. AGE BASED ON LMP . [facility] Comment on above: Recalculations are n ot recommended when gestational dating by LMP and ultrasound are within 10 days. INSULIN DEP DIABETES No . [facility] INTERPRETATION Comment . [facility] Comment on above: Interpretation: Scre en Negative This result is screen negative for OSB. The AFP MoM calculated is based on the gestational age provided. MS-AFP can identify up to 80% of open neural tube defects. Closed neural tube defects and some open defects may not be detected by this test. This test does not screen for Down Syndrome or Trisomy 18. If screening for Down Syndrome or Trisomy 18 is desired, contact [facility] to discuss available options. The [place] [employer] recommends amniocentesis be offered to women age 35 and older. [age] [facility] MULTIPLE GESTATION No . [facility] OSBR RISK 1 IN 9230 . [facility] RACE Other . [facility] RESULTS Report . [facility] TEST RESULTS: Negative . [facility] WEIGHT 220 . lbs [facility] N N LMP [id number] 1 15 N 1 Y 220 N N N N N White/ [facility] Urinalysis macro (dipstick) panel (U)on 04-23-2024 Bilirubin, UA Negative Negative - 4(70) +++ mg/dL [facility] Blood, UA Negative Negative - 50 Titus/mcL [facility] Clarity, UA Clear [facility] Color, UA Yellow [facility] Glucose, UA Negative Negative - 2000(110) ++++ mg/dL [facility] Interpretation and review of laboratory results Abnormal [facility] Ketones, UA Negative Negative - 160(16) ++++ mg/dL [facility] Leukocytes, UA Negative Negative - 500+++ Tristan/mcL [facility] Nitrite, UA Negative Negative - Positive [facility] pH, UA 7.5 5 - 9 [facility] Protein, UA Trace Negative - 2000(20) ++++ mg/dL [facility] Spec Grav, UA 1.02 1 - 1.03 [facility] Urobilinogen, UA 0.2 0.2 - 12 mg/dL [facility] HEMOGLOBIN A1Con 024 Glucose [Mass/Vol] 97 mg/dL [facility] HbA1c (Bld) [Mass fraction] 5 % 4.5 - 6.2 % [facility] Comment on above: ADA RECOMMENDED LIMI T 4.0 - 6.0 ADA THERAPEUTIC TARGET < 7.0 ACTION SUGGESTED > 7.0 [facility]-01-2022 DHEA-S [Mass/Vol] 254.0 microgram/dL Invalid Interpretation Code 110.0-431.7 [facility] Comment on above: Result Comment: Perf ormed at: [facility] [address] [id number] PhD Mp Holloway Performed By: #### 1 2078093, 4556388, 15032760, 6586853, 9275821, 8060287, 79585083, 4511979, 679953437, 115196238 ####[address] [place] [address] FSH and LHon 11-01-2022 Follitropin Qn 3.7 m[IU]/mL Invalid Interpretation Code [facility] Comment on above: Result Comment: Adul t Female: Follicular phase 3.5 - 12.5 Ovulation phase 4.7 - 21.5 Luteal phase 1.7 - 7.7 Postmenopausal 25.8 - 134.8 Performed at: [address] [id number] PhD Mp Holloway Performed By: #### 1 3007085, 4333579, 77817864, 8891596, 2955480, 5982945, 54059562, 2730192, 235560800, [id number] ####[address] [address] Lutropin Qn 4.3 m[IU]/mL Invalid Interpretation Code [facility] Comment on above: Result Comment: Adul t Female: Follicular phase 2.4 - 12.6 Ovulation phase 14.0 - 95.6 Luteal phase 1.0 - 11.4 Postmenopausal 7.7 - 58.5 Performed By: #### 1 4968278, 1522090, 48512867, 4644622, 8241744, 4380952, 18842524, 4735437, 420686975, 553865853 ####[address] [place] [address] Insulin Lvlon 11-01-2022 Insulin Qn 12.8 u[IU]/mL Invalid Interpretation Code 2.6-24.9 [facility] Comment on above: Result Comment: Perf ormed at: [facility] [address] [place] [id number] PhD Mp Holloway Performed By: #### 1 7174013, 3274407, 93522704, 8963735, 3221267, 5460246, 84941338, 4415651, 981815073, 543962299 ####[facility] [address] [place] [address] Testost Totalon 11-01-2022 Testosterone [Mass/Vol] 31 ng/dL Invalid Interpretation Code [facility] Comment on above: Result Comment: Perf ormed at: [facility] [address] [id number] PhD Mp Holloway Performed By: #### 1 0683609, 1754081, 02181659, 4473032, 0470233, 2989585, 96011784, 7697580, 673723478, 863962041 ####[facility] [address] [place] [address] CHEMISTRYOrdered By: SYSTEM SYSTEM on 10-31-2022 25-hydroxyvitamin [...] (Bld) [Mass fraction] 4.9 % Normal <=5.9% [facility] ChemAutoSS Consent for Treatmenton Consent for Treatment [id number]#1 .00CD:127 Normal [facility] Glu Fastingon 10-31-2022 Glucose [Mass/Vol] 94 mg/dL Normal 55-99 [facility] Comment on above: Performed By: #### 1 1749859, 1587466, 17431050, 7417872, 0769798, 5059557, 71577033, 5535309, 556602103, 593049795 ####[facility] [address] [place] [address] XwrE0jjx 10-31-2022 HbA1c (Bld) [Mass fraction] 4.9 % Normal <=5.9 [facility] Comment on above: Performed By: #### 1 8727272, 3555924, 44811017, 5098156, 0407729, 7599501, 16745870, 6189230, 016150567, 047475194 ####[facility] [address] [place] [address] Lipid Panelon 10-31-2022 Cholesterol [Mass/Vol] 190 mg/dL Normal 120-200 [facility] Comment on above: Performed By: #### 1 9645187, 9509345, 56183795, 3363823, 9792738, 5772780, 37190711, 0632625, 200964905, 881404246 ####[facility] [address] [place] [address] Cholesterol in HDL [Mass/Vol] 44 mg/dL Invalid Interpretation Code [facility] Comment on above: Result Comment: HDL > or equal to 60 mg/dL: Low cardiovascular risk HDL < 40 mg/dL : High cardiovascular risk Performed By: #### 1 0741437, 6800488, 60457585, 8126740, 8933171, 8664711, 96347250, 5366006, 427389497, 148105080 ####[facility] [address] [place] [address] Cholesterol in LDL [Mass/Vol] 108 mg/dL Normal <=129 [facility] Comment on above: Performed By: #### 1 0234412, 8122514, 49091374, 2134447, 0036652, 0277768, 50940603, 9453392, 190115047, 458972918 ####[facility] [address] [place] [address] Cholesterol in VLDL [Mass/Vol] 50 mg/dL High 7-40 [facility] Comment on above: Performed By: #### 1 8552615, 4941121, 28025382, 6407994, 1907324, 3520948, 90824753, 0136485, 938458921, 545018051 ####[facility] [address] [place] [address] Triglyceride [Mass/Vol] 252 mg/dL High <=149 [facility] Comment on above: Performed By: #### 1 1814281, 0520814, 92609951, 9072126, 7704937, 7106528, 63169002, 0712909, 272692054, 710458708 ####[address] [place] [address] Physician Orderon 10-31-2022 Physician Order [id number] #1.00CD:127 Normal [facility] Prolactinon 10-31-2022 Prolactin [Mass/Vol] 7.55 ng/mL Normal 3.34-26.72 [facility] Comment on above: Performed By: #### 1 3371646, 3467088, 46309977, 2726127, 1481844, 6889404, 24909126, 4902375, 030137981, 180757402 ####[facility] [address] [place] [address] TSHon 10-31-2022 TSH Qn 1.29 m[IU]/L Normal 0.34-5.60 [facility] Comment on above: Performed By: #### 1 5511584, 7639106, 90174990, 4024485, 3909468, 1797014, 77305673, 1499028, 585191053, 529001001 ####[facility] [address] [place] [address] US Pelvis Non-OB Completeon 10-31-2022 US Pelvis [...] MD Transcribed by: MILES Technologist: BARI Normal [facility] Vitamin D 25 Hydroxyon 10-31 25-hydroxyvitamin D3 [Mass/Vol] 10.1 ng/mL Low 30.0-100.0 [facility] Comment on above: Result Comment: Vit sanchez D deficiency has been defined as a level of serum 25-OH vitamin D less than 20 ng/mL (1,2) by the [place] and an Endocrine Society practice guideline. The Endocrine Society further defined vitamin D insufficiency as a level between 21 and 29 ng/mL (2). 1. IOM ([employer]). 2010. Dietary reference intakes for calcium and D. [place]: The National Academies Press. 2. Lauro MF, Idris BRITO, Torin BRENNAN, et al. Evaluation, treatment, and prevention of vitamin D deficiency: an Endocrine Society clinical practice guideline. JCEM. 2010; 96 (7):1911-30. Performed By: #### 1 9656013, 4004241, 44623940, 9500703, 2926753, 5602084, 11702948, 1754766, 202165732, 910748187 ####[facility] [address] [place] [address] Consent for Treatmenton 09-28 Consent for Treatment [id number]#1 .00CD:127 Normal [facility] Discharge Instructionson Discharge Instructions [id number]#1 .00CD:127 Normal [facility] ED Clinical Summaryon 2022 ED Clinical Summary [address] [address] ED Clinical Summary Person Information Name: APRIL PUENTE [facility] Age: 22 Years : 2000 Sex: Female Language: Namibian PCP: Kathy Kraus NP Marital Status: Single [...] 10/25/2022 11:18:49 10/25/2022 11:18:49 10/25/2022 11:18:49 ADDRESS: [address] [place] [address] [address] [facility] [id number] PHYS DOC NOTES: MEDICAL INFORMATION: Prescriptions Given: Medications to Continue with No Changes Other Medications naproxen (Naprosyn 500 mg Tab) 1 Tablets By Mouth 2 times a day as needed for pain. Refills: 0. naproxen (Naprosyn) By Mouth 2 times a day. PATIENT EDUCATION INFORMATION: Instructions: Hand Contusion Follow up: With: Address: When: Kathy Kraus [address] [place], [place] [phone] Business (1) In 3 days 10/28/2022 DIAGNOSIS: Hand contusion Normal [facility] ED Note-Physicianon 10-26-19 ED Note-Physician Basic [...] 10/28/2022 EDT [address] [place] [phone] Business (1) Additional Instructions: Patient Education Hand Contusion Attestation Patient seen and evaluated by the physician administration assistant. Attending physician was present in the emergency department and supervised care. This visit was performed by both the physician and an APC. I performed all aspects of the MDM as documented. This report was transcribed using voice recognition software. Every effort was made to ensure accuracy, however, inadvertently computerized erection shop supervisor mistakes may be present. Appropriate healthcare PPE [...] na Signed By: Dick Stark MD, V. Normal [facility] Comment on above: Result Comment: Elec [...] elastic wrap to support your hand. ? Kzrs-xaw-cfkuvmy medicines to control pain. Follow these instructions [...] or lying down. General instructions ? Take iohv-mao-pgorhby and prescription medicines only as told by [...] 08/03/2021 Document Reviewed: 08/03/2021 Elsevier Patient Education ? 2022 [employer] Normal [facility] ED Patient Summaryon 023 ED Patient Summary [address] [place] [address] Patient Discharge Instructions Person Information Name: APRIL PUENTE Age: 22 Years Arrival Date: 10/25/2022 10:11:42 Discharge Diagnosis: Hand contusion Primary Care Physician: Kathy Kraus NP Provider Information Primary Provider: Jose uDran DO Advanced Cask Maker:Carlos Han PA-C The exam and treatment you received in the Emergency Department were for an urgent problem and are not intended as complete care. It is important that you follow up with a doctor, nurse practitioner, or physician?s administration assistant for ongoing care. If your symptoms become worse or you do not improve as expected and you are unable to reach your usual health care provider, you should return to the Emergency Department. We are available 24 hours a day. APRIL PUENTE has been given the following list of patient education materials, prescriptions and follow-up instructions: Follow-up Instructions: With: Address: When: Kathy Krasu [address] [facility] [address] [place], [place] [phone] Business (1) In 3 days 10/28/2022 In the event that this physician does not participate in your insurance network, please consult with your insurance company to find a nearby participating provider. Patient Education Materials: Hand Contusion A MESSAGE TO ALL PATIENTS REGARDING OPIOIDS PRESCRIPTION OPIOIDS: WHAT YOU NEED TO KNOW Prescription opioids can be used to help relieve mzyzlxva-ph-cezhlm pain and are often prescribed following a [...] be struggling with addiction, tell your health child care teacher and ask for guidance or call [facility]S National Helpline at [phone]. v Source: [place] Department o (more content not included)... Normal [facility] XR Hand 3+ Views Righton XR Hand [...] MILES Technologist: ELIA, Technical Comments Radiation Dose: bib Oates in mGy = na DAP = na Normal [facility] Physician Orderon 10-22-2022 Physician Order [id number]#1. 00CD:127 Normal [facility] Consenton 12-11-2021 Consent [id number]#1 .00CD:127 Normal [facility] Family Medicine Office/Clini c Noteon 12-09-2021 [...] on course of Augmentin and provided with Benld during her second visit to the ED. [...] discussed with patient. Can also add an fiar-pni-zrxywkv antihistamine. Please follow-up with her PCP to [...] day(s), # 21 tab(s), Refills(s) 0, Pharmacy: [facility]/pharmacy #6173, 168, cm, 12/09/21 11:32:00 EDT, Height/Length Dosing, 107, kg, 12/09/21 11:32:00 EDT, Weight Dosing Follow-up With When Contact Information Efra DOLL, Kathy Mccartney, [facility] [address] [place] [phone] Additional Instructions: Problem List/Past Medical History Ongoing Bilateral otitis externa Chronic diarrhea Duodenal ulcer Fatty liver Fatty liver disease, nonalcoholic Gastroenteritis History of COVID-19 Morbid obesity with BMI of 40.0-44.9, adult Nausea and vomiting Nausea with vomiting Non-smoker Smoker Sore throat Historical Anxiety Left upper quadrant pain Strep throat Procedure/Surgical History bilateral tubes in ears (2003). M (more content not included)... Normal [facility] Comment on above: Result Comment: Elec tronically Signed By: MEGAN NESBITT CNP W\.br\Date and Time Signed: 12/09/21 12:06 EDT Coding Summary.on 12-08-2021 Coding Summary. CD:[id number] G h0bWw+PGhlYWQ+LF9JXWF xE68wcMFvxQ0LM6mNPO2J QZXLADNNAK6QJX7btCC5C BvaX8ZzezBs QnfneQYtMX30QFu7BBV7i EdsYAcqhR0zkRLcL0w2Fb BsJU23iS78SOdcXJZoIaU 3LjZpbjsgbWFy G7gwSoWzqSKhItq+PHRhY mxlIHdpZHRoPScxMDAlJy PqsGktMJ8nRl7zDBKdPGY vbGxhcHNlOiBj r0rdNLHaVAtaLP1atRmbJ 5WesNG1ZBVsy5h5Ix78pI I+FGRvEUZ6wOkdYHnlj20 4HuSis3okTDR1 pOYdWQhaYVI3Y47pr3G3N FUcOTNsPCX9aEO7gS6sgK ihfporV0XxwCUrYbE9FQI 3wKYqwI6zaDhm btetcJ7uTuo+Z94XNP1AD DZRYB3PDvo0M3AhSucflV I+YU56RDFsFK57vIMljKP ou1meoXl0CeSx VAXgHVR3qUmoTUkdg0KoK LHvL31jqHQiy0Y2ZDVctY zmlGObXgUlhBO0vO2jLBs bsutoa1dyuulc Mdesv7nekq51dR41X05kJ CzmDDFfHPD6MJLtBDOniG tqsg2nrH7nWb5+ICfly1h mp1ujjWa8PsJu BGWzozDhcDsfAEE5c3IxH i58N9NarDtcc6TeShf7xp 88jUEui8Z5wMO5PKpiXGR obP1dUHmaBxF2 WEGvZiXbuM95sACzFPsrI e7pgDcgyUuyMS4rKCXdgg wlYOCxfH1fWARazSZujSh cUB9hWFOupopb b041QzTdOSO0ZPFynVYpJ 0NjxA5fYxKxSTDtZIHjW0 AugALaQYktV437KQvmNqZ 3EULuekEvB4Us OVVvoIdjLxV2x4W7Ag2Or 5IrcuyeXJJ9AFjcGJD0Uw IyXvUeUoL3P9ZbChj6TNG qsKugMN8mZ1Cs ZYNzequphekrpTN3GYBwN YVtdG64qWEcUVmeAa8zm0 T2t606OITtPNJehJ74Oa5 udDogMTBwdCBU uX0idseaz0hubgutMjXmI ZMsVAf8GQz6QZFoxEluGe ZmKKZ9DeL6EAG6qJHfjF6 leHwhdoflcK9p Oyc+E65pwQ0uORY3DJX3b aclHLFaggPwGS94FW38M0 RyPjwvdGFibGU+PGRpdiB tfQlqIY4dSwWz t9lic8XyLLovJ5KlXEPaT LosTaw5JETrWSQ9kPR1bV 1tXEDdPMczt1K5xQQ4P5M uzsCmcc9mu3jy IFEgYHyqG63jnSNsj4A5C IGnbYX2MFGrqWryDvIvdP 93Oyc+XLTziIiai8LoYmu yl6wlu1wlvVw2 SvOfLCBlunLtoKskTBS1g 0TxKy40V68pSIjoWKZzOH NuPXCvHEJaiLxhli9gwY5 wIi8+PGNvbCB3 gHL0nS3hDBZhGgB1OQpnS 502PcGqzYEySnbaw1aqi1 rlbRy0PbSrDKSsnrJevZe uOJY4l7UfRg76 X56cZVxfJNJgOZCrZMBxU FIziQqrsy6hqO7eCy7+PC 5da0tgnn65dK69xCF+PHR eEXI2zGagASsg TMMezI5wWTlkQwA7RLCoA wJgkU24xMPdNWhhIs4jmC wxnXivKP1mCYKpfrdby31 2CoBxs6ceWXZh zDVfGJvgISO7D08jp6O9X JGpBLCnCON5rJP0fX3unW lnbjogbGVmdDsgdmVydGl fOOyzWJpmU982 IHRvcDsnPlBhdGllbnQgT dQiMTl6K7VtOty3HWTarZ ogRR7xjASeYOqhFn2ftLh elCfxRX0oUGWm abefn206NvDmh8vhKPHjc VCdJAuhLZU6Y54no0I8OQ CtUSTiTQJ4tBQ0cL5dvJu nbjogbGVmdDsg yvElgAenCXemLTdqK032I HRvcDsnPkJpcnRoIERhdG G0AL11IF65zDRrw8F9pUU 8J3FxBOBlwgqn ttyskSP8QXKcRKCttZ42E r0fsKgdXp5aYKTpBGW7WX FqnXAlF7ZndM8oByYoRTH fUQPrR8OvoTKh CExmY232WZsdEfP2GYDsk rMuD0BeUNQevDlzOaH0p3 K1Kn1VW8E0US08VJ41rWO qv8D6eHH8A5Nz HJRocgbahybpqBY6GPCyA IFzhG10Xy9xoVslBg8rAS GhHCE6MRDicOMhY4FlpL4 yOiAjMDAwMDAw J8FfsIJqWKooI754QWesM xU9BFOrlfMvI0CyPXEseI cuEyE8q5N7Ew3MABg9UL1 4YH87vWYft1S8 dWE6P9HyTFNgesriqolxd KI6SZHvELYdeS01Ws7hrL flBg2tTICsDWO3SDMgeXD gI9VzcZ1fKqGn HOCgXUNeC9PvoBMpRQvnD 957EMvvJzL0RDFesuShB3 LiVPTiuXraHjL6t4K0Ox9 GCKEnMI25HOW6 hHU5LZ98ZZ84V3GrBbmxg GFibGU+PHRhYmxlIHdpZH RoPScxMDAlJyBzdHlsZT0 dPk5wSHRuNSWo zTcafEBtIbNmm0fnRGPsN MqoNH7cwDypY7GoqBA4AT Puc2u5Rp06D46lZ0DjgZF +CBXyqXC6yAK7 uU3xAgRhReS0CSraY019X hIqhSPkLvwwr5igj8dciH y8OsX4CYEjdoVydRcfHLR 4p5YiIr82B52q IHdpZHRoPSIxNSUiIHZhb Kehsh8mcO2tFm8+PGNvbC V9wUW6oX5sIsIbMiA4HSd hR550EhRioLTv Majpp3jop8sbrMo3OhYtG IJglkClsZsfHHQ8n0ZmDr 31S5MefGfvr4GvOxz3mq7 7tMQmt5B8sIZ6 O6BjJHDxzsnhwTIiiHxmB Z2dCBEjhexpOPQirS6cYX ZpY9s7HaDnOkD5EWkiS8M afuM5UOBkdESv TPruFGM4Z09gh4B1WGXwB YCgTFY5bZA8nF7azSkbmk ogbGVmdDsgdmVydGljYWw fJQvyD998LURa iWylORIlqG4hYJFfzBPit MewVK3oKXHktuqkVn6BC0 VOWklFLCBTSEVMQlkgUjw vdGQ+PHRkIHN0 bDemIGmgQRCntI4hCAUvH 0l5MlBbEqY5OXysJ8SuKL FkcokiAj06qD7yItEyPzH 2WIfiJ2TihdG5 KDXhoXNiXFjnGNJ5J75fa 3X7IQChUQJxNMK7cLK6gC 1hbGlnbjogbGVmdDsgdmV ydGljYWwtYWxp G148DONpcZyoNgJ1FcR1K kSvVTW7Y6ZwCep9ADZpaC awHO7uyCFjALqbJf6xwKk ufViiWX6nWHAy lvddKRHpmQ1gZGImdAGqq WxdZT5yPKVroppgd625Do IqUKG4UXVdmPLvF2FadQ5 yOiAjMDAwMDAw U6PgzQOlSBfpL832WMepH uD3ZLOhqfAxO5BaNGUpzQ shJgW0s9A2Di6hGVUGHVG yczwvdGQ+PHRk GZN5kJisZKdfSGStzU7sE PFrJ4i9BsKkIbK0JGgmA0 QdBTLzqxvvZh76zV1sQqJ oLmR5YJbeG0Ku arB0MZDwtOBiKYqfVMC4U 08aq6B5RNZeAPDyEXK2jR Z9cI2wwSdajkobtMMqhEr gdmVydGljYWwt ELjkI851PKTekGrgNlBkd WFsZTwvdGQ+FEBbJPD5aG gdLEzcWGTkzZ4bITRpU5q 5UnSsKmN8EXqf K1FvPECwamkmBu69dW9qD pDqFfN9GFflF0ChxxF8KP NviCAmVYneFYO9L52kv8K 0BUXfUBCfBXB4 xJM0yE7doExuieeqqETid DsgdmVydGljYWwtYWxpZ2 63LXPcoGrpNqXkPXFuON0 jeTwvdGQ+PC90 hf61E9GvMgqaCqi7DCHvT YW6kAZ9lT2fBNAuUHalv2 C6dEV3D5CvetAtqg5sw9c cUPAzVHbzA72i yTXek9S2QZHulCH4FVDgv JkmXgPexD87Tlr+PGNvbG iqs7RtKvreb2wgk4cwzKs 9IjMwJSIgdmFs vDymBWG2c6RuYq06A33lB HdpZHRoPSIzMCUiIHZhbG xxhg7ttU6qSv7+PGNvbCB 6xEY8sX3rRdPx CqF2CUdzR161MuTcxUVqX umqu5oov3jeaCy2PkHqQS TitwAfzFwrQYH2i5QlRw6 5I3XqfIfqd7Rb Hwv2xu84kQQpi1S5lYW1P 3BhZGRpbmctbGVmdDogMC 3bCDDeylyrLXYxtO7pVES pL9w4OyDbXuA3 RAnwR6GqacR6MVUdjSUvT TJugCCHaT1biukbc2helg cyDlWkBKYbPFj2IFo2CJF saWduOiBsZWZ0 JaH9QVG7wXFolA3adTrmx qeysU5qOey+AYj3y4dqpS KwTL3yzJM8GN76GU84bSQ go0Y9kXK7V0Xf NWByqbgqduruvCW7YFGhV DQxoT12Fe1yiCikKu9kWM HjJML5FYBgjLKhE6RacP4 yOiAjMDAwMDAw O5NlnUMeGVfqE160AWwtR tV6BMAtmmAeB4OwRTOdgW oiNjS2e1R2Km1LHN37XK9 0IC67sKStd0Z5 hDO1Z4ZeZNLlcmngymcoj KR8HWAuFTBauZ75Iv5smR fjPq4lRMNbQCC4OSKttIS gO4TwiR5cRfMj IWKeQBYkR9YxwITaHTbmW 452LAztImF2VKIrgmUyT4 OpMVNxnBugPxH9f5T5In4 UCy31VS20BK25 xEZid8T3jOH0S0HjYHZyt ekxbypatML4UVAmFCParY 55Gf8dzRluDh2xWNFnQZH 4CDOarGEzI3Hx kJ5jQiNaYGMjOTEoS0Frj DWsRPciK298WDsqArN1OG YjglMaD4MvFFAdmQmqZoH 7g6G1Gw4PUMlp bhz4V8DyHbiluJT+PC90Y OAlMQ75lZWtdTGxd4nnvI w0OySmPMOnBFM0vNydUTo nr2ZiLLKgR58k bGFw (more content not included)... Normal [facility] Discharge Instructionson Discharge Instructions [id number]# 1.00CD:127 [facility] Coding Summary.on 12-07-2021 Coding Summary. CD:[id number]:[id number] G h0bWw+PGhlYWQ+DS7SJIU pM90uuCSmcQ4FG4pGLY2E RLIIAHWSLH2HOF0trNK7Y XhqT6ImkzIg HoyhsDSbZD43HPx9LQI0u DizIMnbyN2fkFShX5o2Hl IcML50wP18ZBlvJHPcQnU 3LjZpbjsgbWFy H0dmTaLgfJEoFby+PHRhY mxlIHdpZHRoPScxMDAlJy GqfBudAB2cDu8hZXIeUVW vbGxhcHNlOiBj s9ytUDIdTGlsGW6fdRzdK 0MteWM6MFVud2m1Do93oQ I+EXPzKPE5vTybBBblx61 1YmWfq5ouBXP2 zZZwEOwfGUO4X52ma3A8L VWeQFFlGJD2sKK3gF8wsB cqkbxmX9AvfTMvOtX9SCR 7lHTusS5rsNwn svqarN4wJdc+J13RNW6YJ OZVJR2QFua9F1WkThjlyF I+VR72LBQyPR32cNGjwHN dj1fewEn6BrLk DNFjUFN4wMwxDKngo0WzA RKtY65pmYYml0G5IODnyD qglOTjJuFmgDV1jA0wYYb mmfzjv0jzbapr Zvikm1wuqr63fU35X98vG WgrKNGbCAS1SGMbCQLwiR oouh9eaE3jNq2+GQqpj3j sp3bzrPt0TtCp QLPhkkEnbMcsQBM7s1KhF v27F4WdxNolp2IaWsp6zy 95lSWac7I1zZN4DEejLSJ xxY1xXDapHzZ8 REEhEkXwuU88wOPxCPxoC w3waUhgvFhoYY0kGGQibf rzKWBojN6jFWBplHNzbQf cUP9zTPMogggc e825BqZwYDS3JJUvrHLuE 1JenI1nOsQiTVXnAMLiZ2 FwoVCuSBzgQ624NOdgVoZ 8XGOopnWdV3To KQGyfUlhEoH2k8G3Sj9Mq 6NfeghrRHX3ZHscOSB0Pt QtYlPsHkI4W7JmBfa4SLW ncScpZR6tJ1Kd AERhlnungxqhjJX5OWYwW PRfcO43uHUhDRtcWy9ra4 K5v695HIYiWKZdwV87Rl2 udDogMTBwdCBU qN8wtqmve3xrmklyHnVaO ETbYLb4OCd8YZNlyYntUk IwEDU8AlN8EPT3aYPisP0 zyHskmqhloJ2v Oyc+S87qcW4iGNA7CIM0o uipTGCgtkFeUX85UZ95M0 RyPjwvdGFibGU+PGRpdiB zcTgfOX8yHdXl n2yzy9FbYZmkX8AaOIMbO TogLsp1XTLwEHN0qND7pA 8mUUYzGCtgp4U9pGW6Q0S mzkOkpo6em8lz HWNzEEglS18rdQGbr4X5P ZLrqEB6JYLqiJncJsJitO 93Oyc+DNOeaTfnu3WqUrf zg2gak3wyfGb6 SzPnXPMnghTgkNiuNFH7v 0VoKj71J26iCHtoHMEqBL NgWHEzUYKakUrfid0ojU6 wIi8+PGNvbCB3 qUW9oL6qMLKgUpB9MZphL 344EfOfxCKfIbpjy0nts4 uanJu6GzQuWLSoleGyvEh vLKS9d1WiFq69 P33jIDtkMBCrOMZiPFCtE HEnvDxyyl4neX8zKf0+PC 2gj3seqm16fD78hVU+PHR eTQG3wTxpOAad JTQpfZ6qRHnjMsO1BLFjC lZuhV54xSIyMXgmBx8kaK uisGzoLR4eJDBcasyqt85 5AdQvc0xgOZPq iVXjWDsdARC3O37db3J6P RClTANgQCR1qHZ5nT1wtY lnbjogbGVmdDsgdmVydGl oFVnjAJjtE139 IHRvcDsnPlBhdGllbnQgT eIeKDf3L6MzFiu3DXYszE iwMT9xgQXdJXbdAw0uoUz scPoyGV0hUPKe lwlvj224RtWmy0zzDPHar NIeTJcuKWU7P65rs9D5GL KeWQBbZKD0tVV8hI7ikWd nbjogbGVmdDsg qfSelMawPSevSJncH294L HRvcDsnPkJpcnRoIERhdG O9DT39KW60dIHkr4N2sOR 5V3GwMDSbcujj biuufRX0VQPiPXAlgM00S a5xpPqzEs1kUONtPOO1EZ TmoBMoT9LefV7lBvSdSFM fPXHaO8CjnCEk TFjbR805MTnmOoX7DLQmb eFkF1FuIZPvgBzkWhQ9q7 D1Co9GQ2B6MJ23AC24uRL ii1Y5eQL4N3Wc NUNgaskqfjfspUR0HNLsE PTvaE55Nj2ndNfvFc6oCG LsOXS0AGUbaFEyK8YwxO9 yOiAjMDAwMDAw N2OhpVJkYYryS206OIwfJ sQ8OCAvvjSiJ5OwKAZxdC fkOrV3h4F3Em8HXXm9MC6 0EI31qWSea5Q4 sUW2V8LzSHYzwjheeuebu CP4XYQrYRSzfI57Pr3qmY byKi7tZMNhXPD6BWWohHR jN4ZuaM8tPcLy LPRcXWDbZ7FwpLImKVlfN 411NVpsXuL3VJUcfwPfX4 DpMJUskQfkOaZ6w0M7Oc4 RDKCzYB48NDF0 dMM2EC00JB40P3JhUqlwf GFibGU+PHRhYmxlIHdpZH RoPScxMDAlJyBzdHlsZT0 wBc2xWAOrSEQf rLxgyLOdFoVji2qnUBTrA PbyAD4opIjlV6MffWS5VV Hks7v3Fm31I73fG9CaoYJ +VWHlaRV4zHV7 hO8pDgGfRwN0RVrbS115A oDmeFIcGpzps6qjy2okjY n2EuD0SPIuewSyaEmnBHL 6s1NwUe98B94a IHdpZHRoPSIxNSUiIHZhb Vtojp1lhH8fYs1+PGNvbC O3lXA7qH4oIhSxUnS5NLk aD152RzNveLHe Xadaf2qkw5rdvBk2FhLxF SLajcKzgOatKWE1t2PcOc 76S8ZwxEjxn6RfAic7ps7 0qBKao1G2yCC8 Z4LoHTOkmcahwDGcjXhvE G3kTZCabilaAMDznJ5wGL OxI0g3SxAiDbN5TSsyQ0H yquL7KKRnaMRw VNfcTZP4O73gc0L3COElY XZyRMF5qAA7yV9udRrsqe ogbGVmdDsgdmVydGljYWw wGZaaZ611PANa kRqyMHZaxE5lPVEteZUtf AkuUY1aQUCesdszRm3GX7 VOWklFLCBTSEVMQlkgUjw vdGQ+PHRkIHN0 fKadUJleNISmiJ5mKZDxE 2v3IwMkDeF5WNbmB1UrUJ CjtzhmMu31gU9mCvItNkI 3KZzeB0SzquT8 NASbySNwBBviEJC3J93tc 7I7NTBqGDPcKZU8kYY3lD 1hbGlnbjogbGVmdDsgdmV ydGljYWwtYWxp B409JBJllBfqPnW8AsR2R aPlYIP6V9PfQcs1EFXcoG nlLC6rjGPaPKylBl5exKx vnLvsDD7oQOUs zgjmKOTioI5bUDMhiOAzu HvxFB5cIJQjodrgg901Hu LlBQW1JZGhwCVjL7KaaF0 yOiAjMDAwMDAw O7JycWBjDZfiW104FHvtO nJ2CCNenuHzI0BsXXVynN cvHdU0a5E5Bd0rRZQYBJS yczwvdGQ+PHRk MHM6wIftGEfcWQWyzQ7qV TDdL9p6TqInLaE4OQfgE0 VdYNGdcfzsVu19wA5zUjB gNcJ2UXjcV1Ed ueL3OCZcySRtJQuzBCX9A 27yi1I8EOGvXUXrDLH9sU P6oT0qeNjupcvzeLFvdQz gdmVydGljYWwt MAyqE900FICiiYbbPdJic WFsZTwvdGQ+IHRcVHJ7nD tqOAcrOMOqyV6hOMDkO0h 2QcZoQlK5FYky U2CuTDEdjgaqIi41oY0gI kKmAiS3AGmcF0MfxhX4SS VczUPxCKgbEFX0J79we6M 0RUGiUUErIEF0 fEQ7aB1tkDgohnzbpDLme DsgdmVydGljYWwtYWxpZ2 11XWNgqPcmAmAtEEJhIV5 jeTwvdGQ+PC90 ma54A4FfOgkkVco0CQVrI VJ6lKF0bE8xPPQnOPxdr6 F1pYL0U0PjcxZyey1lb4c dCZHiKZqfO19u ePDkv5L4AQZoeNG3WXBpf UqsSmUulG91Dkk+PGNvbG pfo0RhPmsys6vys8uqhLn 9IjMwJSIgdmFs bXhxGWK4h6QkMf02J76jD HdpZHRoPSIzMCUiIHZhbG ssii4vfI1xXb0+PGNvbCB 7qJD3dJ0vKnCd IsI1XHxnP995KnHdeECkX oxsb6slx1izxPo6OpZgXP KyygTitGptLMD0b3ZnHn8 8N1ZjwKfcv4Au Aoj6um64xLDqd3I7cJK5Q 3BhZGRpbmctbGVmdDogMC 6xVWGssihqFUSlzA7cHFS xL5m3BlYfQpJ0 YXdpE8ZnatW9IXTowNUhI FRplGXXtU8wvgwnv1hxnz prFiSgQOByMLi1ZYo8OHM saWduOiBsZWZ0 HyN1UHM8uNDrbH7hpMkau zyizV2pEbs+JAk9c0hziU MbZN2yjGK5BF44SJ01eVZ os2C6dHR7W2Ie AGCcjdcltjtfbQA3YADtO NYyeD15Lt0omDsvSc2dVM WbVZO4UIWkfFClI1DsoJ4 yOiAjMDAwMDAw P5XtlYImJHzwD949DRskG kB8JTLuzgMlI7HdWTTghM gdTyR1b7X6Bk6CPV50XZ9 6YO44bWGwh1Z3 yZJ0S8RaKUSbtugslkixz KZ6LCMxXTPzhO21Ku2ciB syZl4sSPKoHPB6FTQgtWG lO6QakB0bLjHv FYXiTXHaY8SyySEcSPdwY 663RIujDvG6EVVjgsLuQ2 DoGDRjmHpuFjL2c5C2Ju3 NNj03BU79JW25 wSXfa9T7gBF9D5AaUZEjp yhmlgghdPK7UAYiBGLyiS 27Oi7fjMjqUn3qUGNuDUL 7RNTokIJnL3Dx dS2kDoWyOSZvEXKtG5Tsx MWfBCypV748NXgaVvR4FK OsabLkP4DxJLHhjUowLyO 5w2D6Uc2OUIam lso9J6RwCqoihVO+PC90Y FQvLQ47hQFjmKBjc8nirI d6KzEkKXExQUZ2eYyhVKg gp5BcYPMoY91u bGFw (more content not included)... Normal [facility] Consent for Treatmenton 11-27 Consent for Treatment [id number] .00CD:127 Normal [facility] ED Clinical Summaryon 2021 ED Clinical Summary [place] [id number] ED Clinical Summary Person Information Name: GEORGETTE PUENTEJUAN J Mccartney [place] Age: 21 Years : 2000 Sex: Female Language: Namibian PCP: Kathy Kraus NP Marital Status: Single [...] 12/07/2021 19:56:19 12/07/2021 19:56:19 12/07/2021 19:56:19 ADDRESS: [address] [place] [address] [address] [facility] [phone] PHYS DOC NOTES: MEDICAL INFORMATION: Prescriptions Given: [...] 0. PATIENT EDUCATION INFORMATION: Instructions: Cellulitis, Adult, Abbj-zf-Kmpq Follow up: With: Address: When: Kathy Kraus [facility] [address] [place], [place] [phone] Business (1) In 3 days 12/10/2021 Comments: Take the antibiotics as prescribed you have completed the course. Please follow-up with your primary care doctor next 2 to 3 days. You can take the naproxen every 12 hours as needed for pain you can also take the Benld every 6 hours as needed for pain. Please return the ED for any new or worsening symptoms. DIAGNOSIS: Cellulitis of face Normal [facility] ED Note-Physicianon 12-08-19 ED Note-Physician Basic Information Time Seen: Virginie [...] Kathy Kraus In 3 days 12/10/2021 EDT [address] [place] [address] [phone] Business (1) Additional Instructions: Take the antibiotics as prescribed you have completed the course. Please follow-up with your primary care doctor next 2 to 3 days. You can take the naproxen every 12 hours as needed for pain you can also take the Benld every 6 hours as needed for pain. Please return the ED for any new or worsening symptoms. Patient Education Cellulitis, Adult, Tuzo-st-Srcq Problem List/Past Medical History Ongoing Chronic diarrhea [...] 10/02/2020 Cu (more content not included)... Normal [facility] Comment on above: Result Comment: Elec tronically Signed By: Virginie Anthony DO.tanisha\Date and Time Signed: 12/07/21 19:59 EDT ED [...] these instructions at home: Medicines ? Take ljyc-azp-ocaibcx and prescription medicines only as told by [...] Reviewed: 09/04/2018 Elsevier Patient Education ? 2019 Fur and Mask. Normal [facility] ED Patient Summaryon 022 ED Patient Summary [address] [address] Patient Discharge Instructions Person Information Name: APRIL PUENTE Age: 21 Years Arrival Date: 12/07/2021 19:17:33 Discharge Diagnosis: Cellulitis of face Primary Care Physician: Kathy Kraus NP Provider Information Primary Provider: Virginie Anthony DO Advanced Cask Maker:None The exam and treatment you received in the Emergency Department were for an urgent problem and are not intended as complete care. It is important that you follow up with a doctor, nurse practitioner, or physician?s administration assistant for ongoing care. If your symptoms [...] Instructions: With: Address: When: Kathy Kraus [address] [facility] [address] [place], [place] [phone] [facility] (1) In 3 days 12/10/2021 Comments: Take the antibiotics as prescribed you have completed the course. Please follow-up with your primary care doctor next 2 to 3 days. You can take the naproxen every 12 hours as needed for pain you can also take the Benld every 6 hours as needed for pain. Please return the ED for any new or worsening symptoms. In the event that this physician does not participate in your insurance network, please consult with your insurance company to find a nearby participating provider. Patient Education Materials: Cellulitis, Adult, Rqot-vv-Nvcr A MESSAGE TO ALL PATIENTS REGARDING OPIOIDS PRESCRIPTION OPIOIDS: WHAT YOU NEED TO KNOW Prescription opioids can be used to help relieve xidssjnl-ao-beauye pain and are often prescribed following a [...] Drug Administrati (more content not included)... Normal [facility] Consent for Treatmenton 11-27 Consent for Treatment [id number] .[id number]:127 Normal [facility] Discharge Instructionson Discharge Instructions [id number] .[id number]:127 Normal [facility] ED Clinical Summaryon 2021 ED Clinical Summary [place] [id number] ED Clinical Summary Person Information Name: APRIL PUENTE Kandy/[facility] Age: 21 Years : 2000 Sex: Female Language: Namibian PCP: Kathy Kraus NP Marital Status: Single [...] 12/06/2021 08:13:25 12/06/2021 08:13:25 12/06/2021 08:13:25 ADDRESS: [address] [place] [address] [address] [facility] [phone] PHYS DOC NOTES: MEDICAL INFORMATION: Prescriptions Given: New Medications [id number], [address] [place], [place] [phone], [phone] ciprofloxacin-dexamet hasone otic (ciprofloxacin-dexame thasone 0.3%-0.1% Otic Susp) 4 Drops Right ear 2 times a day for 7 Days. Refills: 0. Medications to Continue with No Changes Other Medications fluticasone nasal (fluticasone 0.05 mg/inh Nasal Landenberg) 1 Sprays Nasal Inhalation 2 times a day. each nostril. Refills: 5. promethazine (promethazine 25 mg Tab) 1 Tablets By Mouth 2 times a day as needed as needed for nausea/vomiting. Refills: 1. PATIENT EDUCATION INFORMATION: Instructions: Otitis Externa Follow up: With: Address: When: Kathy Kraus [address] [place], [place] [phone] Business (1) In 3 days 12/09/2021 DIAGNOSIS: Otitis externa Normal [facility] ED Note-Physicianon 12-07-19 ED Note-Physician Basic [...] BID Follow-up With When Contact Information Kathy Efra In 3 days 12/09/2021 EDT [address] [place] [address] [phone] Business (1) Additional Instructions: Patient Education Otitis Externa Attestation Patient seen and evaluated by the physician administration assistant. Attending physician was present in the emergency department and supervised care. This visit was performed by both the physician and an APC. I performed all aspects of the MDM as documented. This report was transcribed using voice recognition software. Every effort was made to ensure accuracy, however, inadvertently computerized erection shop supervisor mistakes may be present. Appropriate healthcare PPE [...] drop(s), Ear-Right, BID fluticasone 0.05 mg/inh Nasal [place], 1 spray(s), Nasal, BID, 5 refills promethazine [...] available. Diagnostic Results No qualifying data available. Normal [facility] Comment on above: Result Comment: Elec tronically [...] even if your condition improves. ? Take ckke-icz-uqtvstk and prescription medicines only as told by [...] 04/15/2006 Document Revised: 09/19/2018 Document Reviewed: 09/19/2018 ElseHarrow Sports Patient Education ? 2019 Fur and Mask. Normal [facility] ED Patient Summaryon 022 ED Patient Summary [place] [address] Patient Discharge Instructions Person Information Name: APRIL PUENTE Age: 21 Years Arrival Date: 12/06/2021 07:56:28 Discharge Diagnosis: Otitis externa Primary Care Physician: Efra DOLL, Kathy Mccartney Provider Information Primary Provider: Jose Duran DO Advanced Cask Maker:Carlos Han PA-C The exam and treatment you received in the Emergency Department were for an urgent problem and are not intended as complete care. It is important that you follow up with a doctor, nurse practitioner, or physician?s administration assistant for ongoing care. If your symptoms [...] Kathy Kraus [address] [place], [place] [phone] [employer] (1) In 3 days 12/09/2021 In the event that this physician does not participate in your insurance network, please consult with your insurance company to find a nearby participating provider. Patient Education Materials: Otitis Externa A MESSAGE TO ALL PATIENTS REGARDING OPIOIDS PRESCRIPTION OPIOIDS: WHAT YOU NEED TO KNOW Prescription opioids can be used to help relieve fpdaspjp-uo-qejwjd pain and are often prescribed following a [...] be struggling with addiction, tell your health child care teacher and ask for guidance or call [facility]?S National Helpline at 4-939-725-OZSE. w Source: [place] Department (more content not included)... Normal [facility] Reference Laboratory Testing Ordered By: Cari LanzaUser on 05-08-2021 SARS-CoV-2 (COVID-19) RNA GA+probe Ql (Resp) Detected Invalid Interpretation Code Not Detected [facility] [employer]OutsSS Comment on above: Result Comment: Chanel ents who have a positive COVID-19 test result may now have treatment options. Treatment options are available for patients with mild to moderate symptoms and for hospitalized patients. Visit our website at [email or web address] for resources and information. This nucleic acid amplification test was developed and its performance characteristics determined by [employer]. Nucleic acid amplification tests include RT-PCR and [...] detected) result in this assay. Performed at: [address] [id number] PhD Mp HOWARDOon 02-10-2019 CNCO Letter Text Normal [facility] CNOVon 02-03-2019 CNOV Office Visit (PNTRMN ) APRIL MIN ([id number]) 4 F Date Time Provider Department 02/03/19 4:15 PM SINTER FEEDER CINDY DANIELS PNTRMN During your visit today, we recorded the following information about you: Weight Height 110.9 kg 1.63 m Татьяна Quiles, DAIJA 02/03/2019 4:30 PM Signed INITIAL ASSESSMENT VISIT PEDIATRIC NUTRITION SERVICE DATE: 02/03/2019 SERVICE TIME: 3:49 PM Reason for visit/diagnosis: obesity, hepatic steatosis Diagnosed/Consulted by: Johnny Mendieta MD Nutrition Assessment: April Mckeon presents today with BMI/age > 95th%ile, indicating [...] x 100-150 hakeem snacks daily is ok https://MiTú/ health/204-qrdyqcm-fb acks https://www.SocialProof.eefoof.com om/704-olnlqxo-bmjojj / 1/2 serving healthy fat: 1/2 oz [...] 2 months for attainment of goals. April Mckeon is a 19 year old female, who [...] MS, RD, CSP, LD PATIENT NAME: April Mckeon DATE: February 03, 2019 TIME: 3:48 PM PAGER: [phone] 02/03/2019 4:22 PM Addendum [...] x 100-150 hakeem snacks daily is ok https://MiTú/ health/878-vmjzybp-fc acks https://www.Bee Resilientthis.c om/783-wskwaja-gsqbwd / 1/2 serving healthy fat: 1/2 oz [...] Follow-up: 2 months Татьяна (Batool Ayala) Evelia, , RD, CSP, LD [facility] [phone] Referring Provider: SHEA HUMPHRIES) [[id number]] Allergies As of Date: 02/03/2019 (No Known Allergies) Date Reviewed: 10/27/2018 Reviewed by: Shea Ngo) MD Yandel - Fully Assessed Reason for Visit: Nutrition Assessment [5821] Primary Visit Diagnosis:Obesity peds (BMI >=95 percentile) [...] x 100-150 hakeem snacks daily is ok https://MiTú/ health/868-umqtgzw-rl acks https://www.LawPivots.c om/251-vpvcbwr-xkwxtl / 1/2 serving healthy fat: 1/2 oz [...] workouts on youtube Follow-up: 2 months Татьяна Quiles (Di Fabio) MS, RD, CSP, LD [facility]'s [phone] Letter Text Encounter Status:Closed by ТАТЬЯНА QUILES on 02/03/19 Normal [facility] CNOV Office Visit (PGASMN ) ARTAPRIL RUIZ ([id number]) 4 F Date Time Provider Department 02/03/19 2:30 PM JOHNNY ARANGO During your visit today, we recorded the following information about you: Temperature Pulse Respiration Blood pressure 97.8 degrees 96/minute 20/minute 124/74 Weight Height Last Period 110.9 kg 1.63 m 01/24/19 Johnny Mendieta MD 02/03/2019 4:33 PM Signed Met[facility] Liver Clinic Initial Visit Chief Complaint: April Mccartney Arthailee Mckeon is a 19 year old female who [...] 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 Recently, her weight trend has been: Trending [...] surgery? no Diabetes: yes in maternal grandmother CAD/WA: no Early coronary disease in first degree [...] Abs Lymph 1.00 - 4.00 k/uL 2.76 [place]% % 8.4 Abs [place] <0.87 k/uL 0.70 Eosin% % 1.7 Abs [...] OSH which shows hepatic steatosis. Assessment: April Mckeon is a 19 year old female with [...] -As part of this multidisciplinary clinic, April Mckeon will meet with a applications development consultant today. 2) Obesity: Yes 3) Hypertension: No [...] in 4 months Referring Provider: SHEA HUMPHRIES) [[id number]] Allergies As of Date: 02/03/2019 (No Known Allergies) Date Reviewed: 10/27/2018 Reviewed by: Shea Ngo) MD Yandel - Fully Assessed Reason for Visit: Consult [502] Cmt: non-alchoholic fatty liver disease Primary Visit Diagnosis:Hepatic steatosis [K76.0] Other Visit Diagnoses:NAFLD (nonalcoholic fatty liver disease) [K76.0] Pediatric obesity due to excess calories without serious comorbidity, unspecified BMI [E66.09] Order(s):CERULOPLASMI N BLD [SQCERULO] Order #: [id number]. #:[id number] HEP REMOTE PANEL BL [SQHREMOP] Order #: [id number]. #:[id number] HGB A1C [TTDUK4C] Order #: [id number]. #:[id number] HEPATIC FUNCTION PNL [SQHFP] Order #: [id number] FUTURE Prescriptions as of 02/03/2019 Sig: ERGOCALCIFEROL [...] by JOHNNY ARANGO MD on 02/03/19 Normal [facility] Ceruloplasminon 02-03-2019 Ceruloplasmin 29 mg/dL Normal 16-45 [facility] Comment on above: Performed By: #### C ERULO, HBA1C, HREMOP ####[facility] [address] [place], [place] [phone] Hemoglobin A1con 02-03-2019 HbA1c (Bld) [Mass fraction] 4.9 % Normal 4.3-5.6 [facility] Comment on above: Result Comment: Amer ican Diabetes Association guidelines indicate that patients with HgbA1c in the range 5.7-6.4% are at increased risk for development of diabetes, and intervention by lifestyle modification may be beneficial. HgbA1c greater or equal to 6.5% is considered diagnostic of diabetes. Performed By: #### C ERULO, HBA1C, HREMOP ####[facility], [place] [phone] HbA1c (Bld) [Mass fraction] 94 mg/dL Normal [facility] Comment on above: Result Comment: eAG: (Estimated average glucose) is a calculated value from HgbA1c and is printing sales representative of the average blood glucose level in the last 2-3 month period. Performed By: #### C ERULO, HBA1C, HREMOP ####[facility], [place] [phone] Hepatic Functn Panelon 02-03 Albumin [Mass/Vol] 4.4 g/dL Normal 3.2-4.5 [facility] Comment on above: Performed By: #### H FP ####[facility], [place] [phone] ALP [Catalytic activity/Vol] 75 U/L Normal 45-87 [facility] Comment on above: Result Comment: Refe rence [...] CALIPER cohort. Clin Biochem. Performed By: #### H FP ####[facility], [place] [phone] ALT [Catalytic activity/Vol] 26 U/L Normal 7-38 [facility] Comment on above: Result Comment: (NOT E) Reference ranges for this patient's age group have not been established. These reference ranges reflect verified or established ranges for the adult population. Interpret these ranges wtih caution using clinical context and additional reference resources. Performed By: #### H FP ####[facility], [place] [phone] AST [Catalytic activity/Vol] 24 U/L Normal 13-35 [facility] Comment on above: Result Comment: (NOT E) Reference ranges for this patient's age group have not been established. These reference ranges reflect verified or established ranges for the adult population. Interpret these ranges with caution using clinical context and additional reference resources. Performed By: #### H FP ####[address] [phone] Bilirubin [Mass/Vol] 0.2 mg/dL Normal 0.2-1.3 [facility] Comment on above: Result Comment: (NOT E) Reference ranges for this patient's age group have not been established. These reference ranges reflect verified or established ranges for the adult population. Interpret these ranges with caution using the clinical context and additional reference resources. Performed By: #### H FP ####[address] [phone] Bilirubin,Conjugated <0.2 Normal <0.2 [facility] Comment on above: Result Comment: (NOT E) Reference ranges for this patient's age group have not been established. These reference ranges reflect verified or established ranges for the adult population. Interpret these ranges with caution using the clinical context and additional reference resources. Performed By: #### H FP ####[address] [phone] Protein [Mass/Vol] 7.8 g/dL Normal 6.3-8.0 [facility] Comment on above: Result Comment: [...] 6.4-8.5 g/dL 15-17 years 6.4-8.3 g/dL Reference: Roberts MK, Home I, Srinivasan M, et al. [place] Laboratory Initiative on Reference Interval Database(CALIPER): pediatric reference intervals for an integrated clinical chemistry and immunoassay analyzer, Burns OPERATIONS EXPERT [id number]. Clin Biochem 2009;42:885-891. Performed By: #### H FP ####[facility] [address] [place] [phone] Hepatitis Remote Panelon HBsAg Negative Normal Negative [facility] Comment on above: Performed By: #### C ERULO, HBA1C, HREMOP ####[facility] [place] [phone] Hep B Core Ab,Total Negative Normal Negative [facility] Comment on above: Performed By: #### C ERULO, HBA1C, HREMOP ####[facility] [place] [phone] Hepatitis C Ab IA Negative Normal Negative [facility] Comment on above: Performed By: #### C ERULO, HBA1C, HREMOP ####[facility] [address]CL[address] [place] [phone] HepB Surface Ab,Qual Negative Normal Negative [facility] Comment on above: Result Comment: NEGA TIVE Performed By: #### C ERULO, HBA1C, HREMOP ####[facility] [place] [phone] PROGRESSon 02-03-2019 PROGRESS HNO ID: [id number] Author: Татьяна Quiles Service: ? Author Type: Registered Dietitian Type: Progress Notes Filed: 02/03/2019 4:30 PM Note Text: INITIAL ASSESSMENT VISIT PEDIATRIC NUTRITION SERVICE DATE: 02/03/2019 SERVICE TIME: 3:49 PM Reason for visit/diagnosis: obesity, hepatic steatosis Diagnosed/Consulted by: Johnny Mendieta MD Nutrition Assessment: April Bib TorresArtmarlon Mckeon presents today with BMI/age > 95th%ile, indicating [...] x 100-150 hakeem snacks daily is ok https://MiTú/ Taplister/273-psijpfh-dh acks https://www.SocialProof.eefoof.com om/075-klltizr-ebmipc / 1/2 serving healthy fat: 1/2 oz [...] 2 months for attainment of goals. April Mckeon is a 19 year old female, who [...] MS, RD, CSP, LD PATIENT NAME: April Mckeon DATE: February 03, 2019 TIME: 3:48 PM PAGER: [phone] Normal [facility] PROGRESS HNO ID: [id number] Author: Momo Coronado (Coord) Service: ? Author Type: Research Type: Progress Notes Filed: 02/03/2019 4:01 PM Note Text: DATE: February 03, 2019 TIME: 03:20 PM PT. NAME: April Mckeon [facility]#: [id number] IRB #: [id number] PROTOCOL: TARGET-ROJAS: 5-year Longitudinal Observational Study of Patients with Nonalcoholic Fatty Liver or Nonalcoholic Steatohepatitis Principle Ultrasonic Seaming Machine Operator: Dr. Johnny mccartney SC: Momo Coronado, (Pager [phone]) [employer] wholesale parts salesperson for study related questions: Ped. [place] (Momo Coronado, Research Crd - Pager [phone]) April Mckeon was seen today as standard of care visit with Dr. Mendieta in the Pediatric Gastroenterology Clinic. In addition,April Mckeon was consented and enrolled in the TARGET-ROJAS- study [id number]. Slip Presser and/or Research Coordinator explained the protocol to April Mckeon and the mother. They read and verbally understood the informed consent. April Mckeon and the mother signed the informed consent. April Mckeon and the parents gave consent to participate [...] the Patient Reported Outcome surveys. Yes April Mckeon participate also in optional Biorespository Specimen Bank part of the study and got also a blood draw. The next follow-up visit for the study will be for April Mckeon in approximal one year with a standard of care visit. _ Tata Knowles [facility] Normal [facility] PROGRESS HNO ID: [id number] Author: Johnny Mendieta Service: ? 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 Recently, her weight trend has been: Trending [...] surgery? no Diabetes: yes in maternal grandmother CAD/WA: no Early coronary disease in first degree [...] Abs Lymph 1.00 - 4.00 k/uL 2.76 [place]% % 8.4 Abs [place] <0.87 k/uL 0.70 Eosin% % 1.7 Abs [...] which shows hepatic steatosis. Assessment: April Mccartney McKenmarlon Mckeon is a 19 year old female with [...] -As part of this multidisciplinary clinic, April Mccartney Arthailee Mckeon will meet with a applications development consultant today. 2) Obesity: Yes 3) Hypertension: No [...] Metabolic Liver Clinic February 03, 2019 Normal [facility] CNPTOUTREACHon 12-10-2018 CNPTOUTREACH Patient Outreach (PGASMN) ART MCKEONAPRIL Bib ([id number]) 4 F Date Time Provider Department 12/10/18 [...] Status:Closed by SEN ORTEGA on 12/10/18 Normal [facility] PROGRESSon 12-10-2018 PROGRESS HNO ID: [id number] Author: Sen Ortega Service: ? Author Type: [...] questions for RN at this time. Normal [facility] Amylaseon 10-27-2018 Amylase [Catalytic activity/Vol] 56 U/L Normal 30-104 [facility] Comment on above: Result Comment: (NOT E) Reference ranges for this patient's age group have not been established. These reference ranges reflect verified or established ranges for the adult population. Interpret these ranges with caution using the clinical context and additional reference resources. Performed By: #### A MYL, CRP, LIPA, VITD, ENDOMY, GLIIGA, TGIGA #### [place] [id number] [place] [phone] C-Reactive Proteinon 019 CRP [Mass/Vol] 0.3 mg/dL Normal <0.9 [facility] Comment on above: Performed By: #### A MYL, CRP, LIPA, VITD, ENDOMY, GLIIGA, TGIGA #### [place] [phone] CBC and Differentialon 10-27 Abs Baso <0.03 Normal <0.11 [facility] Comment on above: Performed By: #### A MYL, CRP, LIPA, VITD, ENDOMY, GLIIGA, TGIGA #### [place] [id number] [place] [phone] Abs [place] 0.70 k/uL Normal <0.87 [facility] Comment on above: Performed By: #### A MYL, CRP, LIPA, VITD, ENDOMY, GLIIGA, TGIGA #### [place] [id number] [place] [phone] Abs Neut 4.75 k/uL Normal 1.45-7.50 [facility] Comment on above: Performed By: #### A MYL, CRP, LIPA, VITD, ENDOMY, GLIIGA, TGIGA #### [place] [id number] [place] [phone] Absolute nRBC <0.01 Normal <0.01 [facility] Comment on above: Performed By: #### A MYL, CRP, LIPA, VITD, ENDOMY, GLIIGA, TGIGA #### [place] [id number] [place] [phone] Basophils/100 WBC (Bld) 0.2 % Normal [facility] Comment on above: Performed By: #### A MYL, CRP, LIPA, VITD, ENDOMY, GLIIGA, TGIGA #### [place] [phone] DTYPE Auto Diff Normal [facility] Comment on above: Performed By: #### A MYL, CRP, LIPA, VITD, ENDOMY, GLIIGA, TGIGA #### [place] [phone] Eosinophils (Bld) [#/Vol] 0.14 10*3/uL Normal <0.46 [facility] Comment on above: Performed By: #### A MYL, CRP, LIPA, VITD, ENDOMY, GLIIGA, TGIGA #### [place] [phone] Eosinophils/100 WBC (Bld) 1.7 % Normal [facility] Comment on above: Performed By: #### A MYL, CRP, LIPA, VITD, ENDOMY, GLIIGA, TGIGA #### [place] [phone] Erythrocyte distribution width (RBC) [Ratio] 12.4 % Normal 11.5-15.0 [facility] Comment on above: Performed By: #### A MYL, CRP, LIPA, VITD, ENDOMY, GLIIGA, TGIGA #### [place] [phone] Hematocrit (Bld) [Volume fraction] 38.5 % Normal 36.0-46.0 [facility] Comment on above: Performed By: #### A MYL, CRP, LIPA, VITD, ENDOMY, GLIIGA, TGIGA #### [place] [address] Hemoglobin (Bld) [Mass/Vol] 12.5 g/dL Normal 11.5-15.5 [facility] Comment on above: Performed By: #### A MYL, CRP, LIPA, VITD, ENDOMY, GLIIGA, TGIGA #### [place] [address] Lymphocytes (Bld) [#/Vol] 2.76 10*3/uL Normal 1.00-4.00 [facility] Comment on above: Performed By: #### A MYL, CRP, LIPA, VITD, ENDOMY, GLIIGA, TGIGA #### [place] [address] Lymphocytes/100 WBC (Bld) 33.0 % Normal [facility] Comment on above: Performed By: #### A MYL, CRP, LIPA, VITD, ENDOMY, GLIIGA, TGIGA #### [place] [address] MCH (RBC) [Entitic mass] 27.8 pG Normal 26.0-34.0 [facility] Comment on above: Performed By: #### A MYL, CRP, LIPA, VITD, ENDOMY, GLIIGA, TGIGA #### [place] [address] MCHC (RBC) [Mass/Vol] 32.5 g/dL Normal 30.5-36.0 [facility] Comment on above: Performed By: #### A MYL, CRP, LIPA, VITD, ENDOMY, GLIIGA, TGIGA #### [address] [address] MCV (RBC) [Entitic vol] 85.7 fL Normal 80.0-100.0 [facility] Comment on above: Performed By: #### A MYL, CRP, LIPA, VITD, ENDOMY, GLIIGA, TGIGA #### [place] [id number] [place] [address] Monocytes/100 WBC (Bld) 8.4 % Normal [facility] Comment on above: Performed By: #### A MYL, CRP, LIPA, VITD, ENDOMY, GLIIGA, TGIGA #### [phone] Neutrophils/100 WBC (Bld) 56.7 % Normal [facility] Comment on above: Performed By: #### A MYL, CRP, LIPA, VITD, ENDOMY, GLIIGA, TGIGA #### [place] [address] NRBCs 0.0 /100 WBC Normal 0 [facility] Comment on above: Performed By: #### A MYL, CRP, LIPA, VITD, ENDOMY, GLIIGA, TGIGA #### [place] [phone] Platelet mean volume (Bld) [Entitic vol] 8.5 fL Low 9.0-12.7 [facility] Comment on above: Performed By: #### A MYL, CRP, LIPA, VITD, ENDOMY, GLIIGA, TGIGA #### [place] [phone] Platelets (Bld) [#/Vol] 387 10*3/uL Normal 150-400 [facility] Comment on above: Performed By: #### A MYL, CRP, LIPA, VITD, ENDOMY, GLIIGA, TGIGA #### [place] [address] RBC (Bld) [#/Vol] 4.49 10*6/uL Normal 3.90-5.20 [facility] Comment on above: Performed By: #### A MYL, CRP, LIPA, VITD, ENDOMY, GLIIGA, TGIGA #### [facility] [address] [place] [address] WBC (Bld) [#/Vol] 8.37 10*3/uL Normal 3.70-11.00 [facility] Comment on above: Performed By: #### A MYL, CRP, LIPA, VITD, ENDOMY, GLIIGA, TGIGA #### [facility] [address] [place] [address] CNCOon 10-27-2018 CNCO Letter Text Normal [facility] CNOVon 10-27-2018 CNOV Office Visit (PGASAV ) APRIL MIN ([id number]) 4 F Date Time Provider Department 10/27/18 1:00 PM SHEA HUMPHRIES) PGASAV During your visit today, we recorded the following information about you: Weight Height Last Period 107.5 kg 1.643 m 10/13/18 Shea Humphries MD, 10/27/2018 1:48 PM Signed Referring MD: This patient was referred by JASMYN Gong for evaluation and management of abdominal complaints and our recommendations will be communicated back (either as a letter or via electronic medical record delivery) to JASMYN Gong. HPI: April Mckeon is a 18 year old female being [...] labwork or ultrasounds were completed. 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 Bowel movement [...] 2.39) based on CDC (Girls, 2-20 Years) gifdgo-gjf-alj data using vitals from 10/27/2018.)(>99 %ile (Z= [...] imaging was reviewed in detail. Impression: April Mckoen is here in pediatric gastroenterology clinic with [...] prn Shea Humphries MD Pediatric Gastroenterology Staff [facility]'s CC: Maria Elena James, SHARMILA-C [address] [place] [id number] Shea Humphries MD, MD 10/27/2018 1:28 PM Signed Labs today Stool sample - drop off at [facility] Ultrasound - at [facility] Bentyl - take pain three times per day as needed for pain Referring Provider: MARIA ELENA JAMES [[id number]] Allergies As of Date: 10/27/2018 (No Known Allergies) Date Reviewed: 10/27/2018 Reviewed by: Shea Ngo) MD Yandel - Fully Assessed Reason for Visit: New Patient [172] Primary Visit Diagnosis:RUQ abdominal pain [R10.11] Other Visit Diagnoses:Nausea [R11.0] Constipation, unspecified constipation type [K59.00] Order(s):TSH BLD [SQTSH] Order #: [id number] FUTURE SED RATE WESTERGREN [SQWSR] Order #: [id number] FUTURE ENDOMYSIAL IGA AB [SQENDOMY] Order #: [id number] IGA BLD [SQIGA] Order #: [id number] FUTURE C-REACTIVE PROTEIN (CRP) [SQCRP] Order #: [id number] VITAMIN D 25 HYDROXY [SQVITD] Order #: [id number] COMP METABOLIC PANEL [SQCMP] Order #: [id number] FUTURE CBC + DIFF [SQCBCDIF] Order #: [id number] T4 FREE/FREE THYROX [SQFT4] Order #: [id number] FUTURE LIPASE BLD [SQLIPA] Order #: [id number] GLIADIN (DEAMIDATED) AB, IGA [SQGLIIGA] Order #: [id number] AMYLASE BLD [SQAMYL] Order #: [id number] TRANSGLUTAMINASE IGA [SQTGIGA] Order #: [id number] dicyclomine (BENTYL) 20 mg tabletTake 1 tablet [...] today Stool sample - drop off at [facility] Ultrasound - at [facility] Bentyl - take pain three times [...] by SHEA HUMPHRIES MD on 10/27/18 Normal [facility] Comp Metabolic Panelon 10-27 Albumin [Mass/Vol] 4.5 g/dL Normal 3.2-4.5 [facility] Comment on above: Result Comment: Refe rence ranges were not locally established for this patient's age group. The normal values are based on the following source: Albumin (Gen. 2) (package insert v 10.0 Namibian). [facility], [place], [place], June 2014. Performed By: #### F ANJUM Cowan, IGA ####[address] [phone] ALP [Catalytic activity/Vol] 72 U/L Normal 50-117 [facility] Comment on above: Result Comment: Refe rence [...] cohort. Clin Biochem. Performed By: #### F ANJUM Cowan IGA ####[address] [phone] ALT [Catalytic activity/Vol] 29 U/L Normal 7-38 [facility] Comment on above: Result Comment: (NOT E) Reference ranges for this patient's age group have not been established. These reference ranges reflect verified or established ranges for the adult population. Interpret these ranges wtih caution using clinical context and additional reference resources. Performed By: #### F ANJUM Cowan IGA ####[place] [address] [place], [place] [phone] Anion gap [Moles/Vol] 13 mmol/L Normal 9-18 [facility] Comment on above: Result Comment: (NOT E) Reference ranges for this patient's age group have not been established. These reference ranges reflect verified or established ranges for the adult population. Interpret these ranges with caution using the clinical context and additional reference resources. Performed By: #### F ANJUM Cowan, IGA ####[address] [phone] AST [Catalytic activity/Vol] 19 U/L Normal 13-35 [facility] Comment on above: Result Comment: (NOT E) Reference ranges for this patient's age group have not been established. These reference ranges reflect verified or established ranges for the adult population. Interpret these ranges with caution using clinical context and additional reference resources. Performed By: #### F ANJUM Cowan, IGA ####[facility] [place], [place] [phone] Bilirubin [Mass/Vol] 0.2 mg/dL Normal 0.2-1.3 [facility] Comment on above: Result Comment: (NOT E) Reference ranges for this patient's age group have not been established. These reference ranges reflect verified or established ranges for the adult population. Interpret these ranges with caution using the clinical context and additional reference resources. Performed By: #### F ANJUM Cowan, IGA ####[facility] [place], [place] [phone] Calcium [Mass/Vol] 9.7 mg/dL Normal 8.5-10.2 [facility] Comment on above: Result Comment: Refe rence ranges were not locally established for this patient's age group. The normal values are based on the following source: Calcium (Gen. 2) (package insert v3.0 [place]ian). [facility], [place], [place], January 2013. Performed By: #### F ANJUM Cowan, IGA ####[facility] [place], [place] [phone] Chloride [Moles/Vol] 103 mmol/L Normal 97-105 [facility] Comment on above: Result Comment: (NOT E) Reference ranges for this patient's age group have not been established. These reference ranges reflect verified or established ranges for the adult population. Interpret these ranges with caution using the clinical context and additional reference resources. Performed By: #### F ANJUM Cowan, IGA ####[address] [phone] CO2 [Moles/Vol] 22 mmol/L Normal 22-30 [facility] Comment on above: Result Comment: (NOT E) Reference ranges for this patient's age group have not been established. These reference ranges reflect verified or established ranges for the adult population. Interpret these ranges with caution using the clinical context and additional reference resources. Performed By: #### F T4, WSR, IGA ####[facility] [address] [place], [place] [phone] Creatinine [Mass/Vol] 0.64 mg/dL Normal 0.58-0.96 [facility] Comment on above: Result Comment: Refe rence ranges for this patient's age group have not been established. These reference ranges reflect verified or established ranges for the adult population. Interpret these ranges with caution using the clinical context and additional reference resources. Performed By: #### F T4, WSR, IGA ####[facility] [place], [place] [phone] GFR/1.73 sq M predicted among non-blacks MDRD (S/P/Bld) [Vol rate/Area] 0.65 mL/min/{1.73_m2} Normal [facility] Comment on above: Result Comment: eGFR (Estimated [...] for clinical interpretation. Performed By: #### F T4, WSR, IGA ####[facility] [address] [place], [place] [phone] Glucose [Mass/Vol] 108 mg/dL High 74-99 [facility] Comment on above: Result Comment: Refe rence ranges for this patient's age group have not been established. These reference ranges reflect verified or established ranges for the adult population. Interpret these ranges with caution using the clinical context and additional reference resources. The [place] Diabetes Association (ADA) provides guidance for cutoff [...] Standards of Medical Care in Diabetes 2016, [place] Diabetes Association. Diabetes Care. 2016.39(Suppl 1). Performed By: #### F ANJUM Cowan, IGA ####[facility] [place], [place] [phone] Potassium [Moles/Vol] 4.0 mmol/L Normal 3.7-5.1 [facility] Comment on above: Performed By: #### F ANJUM Cowan, IGA ####[facility] [place], [place] [phone] Protein [Mass/Vol] 7.8 g/dL Normal 6.3-8.0 [facility] Comment on above: Result Comment: Refe rence ranges for this patient's age group have not been established. These reference ranges reflect verified or established ranges for the adult population. Interpret these ranges with caution using the clinical context and additional reference resources. Performed By: #### F ANJUM Cowan, IGA ####[facility] [place], [place] [phone] Sodium [Moles/Vol] 138 mmol/L Normal 136-144 [facility] Comment on above: Result Comment: (NOT E) Reference ranges for this patient's age group have not been established. These reference ranges reflect verified or established ranges for the adult population. Interpret these ranges with caution using the clinical context and additional reference resources. Performed By: #### F ANJUM Cowan, IGA ####[facility] [place], [place] [phone] Urea nitrogen [Mass/Vol] 14 mg/dL Normal 5-18 [facility] Comment on above: Result Comment: Refe rence ranges were not locally established for this patient's age group. The normal values are based on the following source: Urea/BUN (package insert v7.0 [place]ian). [facility], [place], [place], March 2015. Performed By: #### F T4, WSR, IGA ####[place] [address] [place], [place] [phone] Endomysial IgA Abson 019 Endomysial IgA Abs <1:10 Normal <1:10 [facility] Comment on above: Result Comment: Refe rence Range: Negative < 1:10 Dilution IgA endomysial antibody is a highly sensitive and specific marker for celiac disease in patients with a normal IgA and on a normal diet. Levels reflect the adherence to gluten free diet. Performed By: #### A MYL, CRP, LIPA, VITD, ENDOMY, GLIIGA, TGIGA #### [facility] [address] [place] [phone] Free T4on 10-27-2018 Free T4 [Mass/Vol] 1.3 ng/dL Normal 0.8-1.5 [facility] Comment on above: Performed By: #### F T4, WSR, IGA ####[place] [address] [place], [place] [phone] Gliad Deamidated IgAon 10-27 Gliad IgA Ab 11 Units Normal <20 [facility] Comment on above: Result Comment: Nega tive : < 20 Units Weak Positive : 20 - 30 Units Moderate Pos to Strong Pos: >30 Units The following results were obtained with the [employer] QUANTA Lite Gliadin IgA MIKE. Gliadin IgA values obtained with different manufacturers' assay methods may not be used interchangeably. The magnitude of the reported IgA levels cannot be correlated to an endpoint titer. Performed By: #### A MYL, CRP, LIPA, VITD, ENDOMY, GLIIGA, TGIGA #### [facility] [address] [place] [id number] HISTORY PHYSICALon 9 HISTORY PHYSICAL HNO ID: [id number] Author: Shea Ngo) MD Yandel Service: ? Author Type: Physician Type: HANDP Filed: 10/27/2018 1:48 PM Note Text: Referring MD: This patient was referred by JASMYN Gong for evaluation and management of abdominal complaints and our recommendations will be communicated back (either as a letter or via electronic medical record delivery) to JASMYN Gong. HPI: April Mckeon is a 18 year old female being [...] labwork or ultrasounds were completed. 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 Bowel movement [...] kg/m2 (>99 %ile (Z= 2.39) based on [facility] (Girls, 2-20 Years) xantsw-dzh-niv data using vitals from 10/27/2018.)(>99 %ile (Z= [...] imaging was reviewed in detail. Impression: April Mckeon is here in pediatric gastroenterology clinic with [...] sooner santi Humphries MD Pediatric Gastroenterology Staff [facility]'s CC: Maria Elena James, GEAR CUTTER-C [address] [facility] [address] Normal [facility] IgAon 10-27-2018 IgA [Mass/Vol] 321 mg/dL Normal 78-391 [facility] Comment on above: Performed By: #### F T4, WSR, IGA ####[facility] [address] [place], [place] [phone] Lipaseon 10-27-2018 Lipase [Catalytic activity/Vol] 20 U/L Normal 16-61 [facility] Comment on above: Result Comment: (NOT E) Reference ranges for this patient's age group have not been established. These reference ranges reflect verified or established ranges for the adult population. Interpret these ranges with caution using the clinical context and additional reference resources. Performed By: #### A MYL, CRP, LIPA, VITD, ENDOMY, GLIIGA, TGIGA #### [facility] [address] [place], [place] [address] Sed Rate Westergrenon 2018 Sed Rate Westergren 27 mm/hr High 0-20 [facility] Comment on above: Performed By: #### F T4, WSR, IGA ####[facility] [place], [place] [phone] TSHon 10-27-2018 TSH Qn 3.470 uU/mL Normal 0.510-4.300 [facility] Comment on above: Result Comment: Refe rence ranges were not locally established for this patient's age group. The normal values are based on the following source: Dru W, Kimberly Gordon. Reference Ranges for Adults and Children: Pre-analytical Considerations. [facility] Performed By: #### F T4, WSR, IGA ####[facility] [place], [place] [phone] Transglutaminase IgAon 10-27 Transglutaminase IgA 3 Units Normal <20 [facility] Comment on above: Result Comment: Nega tive : < 20 Units Weak Positive : 20 - 30 Units Moderate Pos to Strong Pos: >30 Units The following results were obtained with the [employer] QUANTA Lite h-tTG IgA MIKE. h-tTG IgA values obtained with different manufacturers' assay methods may not be used interchangeably. The magnitude of the reported IgA levels cannot be correlated to an endpoint titer. Performed By: #### A MYL, CRP, LIPA, VITD, ENDOMY, GLIIGA, TGIGA ####[facility] [place], [place] [phone] Vitamin D 25 Hydroxyon 10-27 Vitamin D 25 Hydroxy 15.8 ng/mL Low 31.0-80.0 [facility] Comment on above: Result Comment: Clas sification of 25 [place] Vitamin D status: Insufficiency/Moderate Deficiency: < or = 30 ng/mL Sufficiency/Optimal Levels: 31 to 80 ng/mL Toxicity: > 100 ng/mL Test performed by chemiluminescent immunoassay. Performed By: #### A MYL, CRP, LIPA, VITD, ENDOMY, GLIIGA, TGIGA #### [facility] [address] [place] [phone] [employer] - General Officeon 0 08-07-2018 [facility] Office From: Alethea Chanel To: Alethea Chanel; Sent: 08/07/2018 10:45:02 EDT Subject: Patient left insurance cards Insurance cards were left in the office on visit 08/06/2018. Attempted to call both numbers listed on patients chart and couldnt get through nor leave a voicemail, mailed insurance card to patient. Pt dad called stating they revieved a voicemail. Contacted per at [phone] and advised of above. Normal [facility] Vital Signs Date Time Vital Sign Value Performing Clinician Facility 04-23-2024 10:17-0500 Body weight 99.7 kg Adyuka Work Phone: [facility] 04-23-2024 10:17-0500 Diastolic blood pressure 70 mm[Hg] Adyuka Work Phone: [facility] 04-23-2024 10:17-0500 Systolic blood pressure 120 mm[Hg] Adyuka Work Phone: [facility] 10-25-2022 10:17-0400 Body temperature 98.06 [degF] Jose Duran [facility] 10-25-2022 10:17-0400 Diastolic blood pressure 80 mm[Hg] Jose Duran [facility] 10-25-2022 10:17-0400 Heart rate 94 /min Jose Duran [facility] 10-25-2022 10:17-0400 Respiratory rate 18 /min Jose Duran [facility] 10-25-2022 10:17-0400 SaO2% (BldA) [Mass fraction] 99 % Jose Duran [facility] 10-25-2022 10:17-0400 Systolic blood pressure 124 mm[Hg] Jose Duran [facility] 12-07-2021 19:19-0400 Body temperature 98.24 [degF] Kaylinn Dokken [facility] 12-07-2021 19:19-0400 Diastolic blood pressure 92 mm[Hg] Kaylinn Dokken [facility] 12-07-2021 19:19-0400 Heart rate 114 /min Kaylinn Dokken [facility] 12-07-2021 19:19-0400 Respiratory rate 16 /min Kaylinn Dokken [facility] 12-07-2021 19:19-0400 SaO2% (BldA) [Mass fraction] 98 % Kaylinn Dokken [facility] 12-07-2021 19:19-0400 Systolic blood pressure 143 mm[Hg] Kaylinn Dokken [facility] 12-06-2021 07:58-0400 Body temperature 98.06 [degF] Jose Duran [facility] 12-06-2021 07:58-0400 Diastolic blood pressure 80 mm[Hg] Jose Duran [facility] 12-06-2021 07:58-0400 Heart rate 86 /min Jose Duran [facility] 12-06-2021 07:58-0400 Respiratory rate 16 /min Jose Duran [facility] 12-06-2021 07:58-0400 SaO2% (BldA) [Mass fraction] 100 % Jose Duran [facility] 12-06-2021 07:58-0400 Systolic blood pressure 121 mm[Hg] Jose Duran [facility] Encounters Encounter Date Encounter Type Care Provider Facility Start: 05-20-2024 End: 05-20-2024 Bamboo flowsheet Mimi REES Work Phone: [facility] Start: 05-20-2024 End: 05-20-2024 Bamboo flowsheet Mimi REES Work Phone: [facility] Start: 05-18-2024 End: 05-19-2024 Clinisync Result Encounter Yony Brittany DO Work Phone: [facility] Unsolicited Start: 05-18-2024 End: 05-19-2024 Clinisync Result Encounter Yony Brittany DO Work Phone: [facility] Unsolicited Start: 04-23-2024 End: 04-23-2024 Bamboo flowsheet Yony [...] 04-13-2024 End: 04-13-2024 Clinisync Result Encounter Yony Beyero DO Work Phone: [facility] Unsolicited Start: 04-13-2024 End: 04-13-2024 Clinisync Result Encounter Yonykev Beyero DO Work Phone: [facility] Unsolicited Start: 03-12-2024 End: 03-12-2024 ambulatory SARAH Dinah LINDA Not Available Start: 03-12-2024 End: 03-12-2024 flow sheet Sarah Harris GEAR C[employer]TER Work Phone: [facility] Comment on above: GA: 9w1d Start: 10-31-2022 End: 11-01-2022 ambulatory Ivelisse Leger Facility:[facility] Start: 10-31-2022 End: 10-31-2022 Patient encounter procedure Ivelisse Leger [facility] Start: 10-25-2022 End: 10-25-2022 Emergency department patient visit Jose Duran Facility:[facility] Start: 10-25-2022 End: 10-25-2022 Emergency department patient visit Jose Duran [facility] Start: 12-09-2021 End: 12-10-2021 ambulatory MEGAN NESBITT Facility: [facility] Start: 12-07-2021 End: 12-07-2021 Emergency department patient visit Virginie Anthony Facility:[facility] Start: 12-07-2021 End: 12-07-2021 Emergency department patient visit Virginie Anthony [facility] Start: 12-06-2021 End: 12-06-2021 Emergency department patient visit Jose Duran Facility:[facility] Start: 12-06-2021 End: 12-06-2021 Emergency department patient visit Jose Duran [facility] Start: 05-08-2021 End: 08-06-2021 Patient encounter procedure Kwasi Pop III [facility] Start: 08-28-2018 Patient encounter procedure Maria Elena James Facility:CD:[id number] Start: 08-06-2018 End: 08-07-2018 Patient encounter procedure Maria Elena James Facility:CD:[id number] Procedures Date Procedure Procedure Detail Performing Clinician Start: 05-18-2024 AFP, SERUM, OPEN SPI NA BIFIDA Yony Brittany DO Work Phone: Start: 04-23-2024 Urnls dip stick/tabl et rgnt non-auto w/o micrscp Yony Brittany DO Work Phone: Start: 04-13-2024 MLR HEMOGLOBIN A1C Core y Brittany DO Work Phone: Start: 04-29-2003 bilateral tubes in ears Kwasi Pop III Plan of Treatment Date Care Activity Detail Author Start: 05-20-2024 End: 05-20-2024 Patient encounter procedure 05/20/2024 10:30 AM EST [facility] [address] [facility] [place] [id number] Mimi Lanza PA [address] [place] [address] [place] [address] [facility] Start: 04-23-2024 End: 05-24-2024 Alpha fetoprotein, maternal Alpha fetoprotein, maternal Lab Routine 15 weeks gestation of Expected: 04/23/2024 (Approximate), Expires: 05/24/2024 [facility] Work Phone: Comment on above: Expected: 04/23/2024 (Approximate), Expires: 05/24/2024 Start: 04-23-2024 End: 04-23-2024 Patient encounter procedure 04/23/2024 9:30 AM EST Routine [facility] [address] [place] [id number] Yony Soto, DO [address] [facility] [address] [place] [address] [facility] Start: 04-15-2024 End: 04-15-2024 Professional / ancillary services management 04/15/2024 11:00 AM EST Ancillary Procedure [facility] [address] [place] [id number] [facility] Start: 04-11-2024 End: 03-12-2025 ABO/Rh ABO/Rh Lab Routine Encounter for supervision of normal first in first trimester 9 weeks gestation of Expected: 04/11/2024 (Approximate), Expires: 03/12/2025 [facility] Work Phone: Comment on above: Expected: 04/11/2024 (Approximate), Expires: 03/12/2025 Start: 04-11-2024 End: 03-12-2025 Antibody screen Antibody screen Lab Routine Encounter for supervision of normal first in first trimester 9 weeks gestation of Expected: 04/11/2024 (Approximate), Expires: 03/12/2025 [facility] Comment on above: Expected: 04/11/2024 (Approximate), Expires: 03/12/2025 Start: 04-11-2024 End: 03-12-2025 Bacteria identified in Urine by Culture Urine culture Microbiology Routine Encounter for supervision of normal first in first trimester 9 weeks gestation of Expected: 04/11/2024 (Approximate), Expires: 03/12/2025 [facility] Comment on above: Expected: 04/11/2024 (Approximate), [...] gestation of Expected: 04/11/2024 (Approximate), Expires: 03/12/2025 [facility] Comment on above: Expected: 04/11/2024 (Approximate), Expires: 03/12/2025 Start: 04-11-2024 End: 03-12-2025 Hemoglobin A1c/Hemoglobin.total in Blood Hemoglobin A1c Lab Routine Encounter for supervision of normal first in first trimester 9 weeks gestation of Expected: 04/11/2024 (Approximate), Expires: 03/12/2025 [facility] Comment on above: Expected: 04/11/2024 (Approximate), Expires: 03/12/2025 Start: 04-11-2024 End: 03-12-2025 Hepatitis B virus surface Ag [Presence] in Serum or Plasma by Immunoassay Hepatitis B surface Ag Lab Routine Encounter for supervision of normal first in first trimester 9 weeks gestation of Expected: 04/11/2024 (Approximate), Expires: 03/12/2025 [facility] Comment on above: Expected: 04/11/2024 (Approximate), Expires: 03/12/2025 Start: 04-11-2024 End: 03-12-2025 HIV-1/HIV-2 antigen/antibody combination immunoassay HIV-1 and HIV-2 antibodies Lab Routine Encounter for supervision of normal first in first trimester 9 weeks gestation of Expected: 04/11/2024 (Approximate), Expires: 03/12/2025 [facility] Comment on above: Expected: 04/11/2024 (Approximate), Expires: 03/12/2025 Start: 04-11-2024 End: 03-12-2025 Reagin Ab [Presence] in Serum by RPR RPR Lab Routine Encounter for supervision of normal first in first trimester 9 weeks gestation of Expected: 04/11/2024 (Approximate), Expires: 03/12/2025 [facility] Comment on above: Expected: 04/11/2024 (Approximate), Expires: 03/12/2025 Start: 04-11-2024 End: 03-12-2025 Rubella IgG Rubella IgG Lab Routine Encounter for supervision of normal first in first trimester 9 weeks gestation of Expected: 04/11/2024 (Approximate), Expires: 03/12/2025 [facility] Comment on above: Expected: 04/11/2024 (Approximate), Expires: 03/12/2025 Start: 04-02-2024 End: 04-02-2024 ambulatory 04/02/2024 1:40 PM EST Initial [facility] [address] [address] Sarah Harris [employer] [address] [place] [address] [facility] Start: 03-23-2024 End: 03-23-2024 Professional / ancillary services management 03/23/2024 4:00 PM EST Ancillary Procedure [facility] [address] [address] [facility] Immunizations Immunization Date Immunization Notes Care Provider Fa cili 04-17-2021 meningococcal B vaccine, fully recombinant Jose Roger [facility] 02-24-2021 meningococcal ACWY vaccine, unspecified formulation Jose Roger [facility] Comment on above: Result Comment: 2021: VFC STOCK USED 02-24-2021 meningococcal B vaccine, fully recombinant Jose Roger [facility] Comment on above: Result Comment: 2021: VFC STOCK BORROWED 11-12-2016 hepatitis A vaccine, adult dosage Kwasi Pop III [facility] 11-12-2016 HPV, unspecified formulation Kwasi Pop III [facility] 12-16-2015 hepatitis A vaccine, adult dosage Kwasi Pop III [facility] 12-16-2015 HPV, unspecified formulation Kwasi Pop III [facility] 12-16-2015 meningococcal ACWY vaccine, unspecified formulation Kwasi Pop III [facility] 12-16-2015 tetanus and diphther ia toxoids, adsorbed, preservative free, for adult use (2 Lf of tetanus toxoid and 2 Lf of diphtheria toxoid) Kwasi Pop III [facility] 12-31-2006 diphtheria, tetanus toxoids and acellular pertussis vaccine Jose Duran [facility] 12-31-2006 measles, mumps and rubella virus vaccine Kwasi Pop III [facility] 12-31-2006 poliovirus vaccine, unspecified formulation Kwasi Pop III [facility] 12-31-2006 tetanus toxoid, reduced diphtheria toxoid, and acellular pertussis vaccine, adsorbed Kwasi Pop III [facility] 01-17-2004 influenza virus vaccine, unspecified formulation Jose Duran [facility] 01-17-2004 pneumococcal conjuga te vaccine, 13 valent Kwasi Pop III [facility] 08-18-2003 DTaP, unspecified formulation Jose Duran [facility] 08-18-2003 haemophilus influenz ae type b vaccine, HbOC conjugate Kwasi Pop III [facility] 04-27-2003 DTaP, unspecified formulation Jose Duran [facility] 04-27-2003 haemophilus influenz ae type b vaccine, HbOC conjugate Kwasi Pop III [facility] 04-27-2003 hepatitis B vaccine, adult dosage Kwasi Pop III [facility] 04-27-2003 influenza virus vaccine, unspecified formulation Jose Duran [facility] 04-27-2003 pneumococcal conjuga te vaccine, 13 valent Kwasi Pop III [facility] 04-27-2003 poliovirus vaccine, unspecified formulation Kwasi Pop III [facility] 04-27-2003 tetanus toxoid, reduced diphtheria toxoid, and acellular pertussis vaccine, adsorbed Kwasi Pop III [facility] 01-29-2003 DTaP, unspecified formulation Jose Roger [facility] 01-29-2003 haemophilus influenz ae type b vaccine, HbOC conjugate Kwasi Pop III [facility] 01-29-2003 hepatitis B vaccine, adult dosage Kwasi Pop III [facility] 01-29-2003 measles, mumps and rubella virus vaccine Kwasi Pop III [facility] 01-29-2003 poliovirus vaccine, unspecified formulation Kwasi Pop III [facility] 01-29-2003 tetanus toxoid, reduced diphtheria toxoid, and acellular pertussis vaccine, adsorbed Kwasi Pop III [facility] 01-29-2003 varicella virus vaccine Kwasi Pop III [facility] 2002 DTaP, unspecified formulation Jose Roger [facility] 2002 haemophilus influenz ae type b vaccine, HbOC conjugate Kwasi Pop III [facility] 2002 hepatitis B vaccine, adult dosage Kwasi Pop III [facility] 2002 pneumococcal conjuga te vaccine, 13 valent Kwasi Pop III [facility] 2002 poliovirus vaccine, unspecified formulation Kwasi Pop III [facility] 2002 tetanus toxoid, reduced diphtheria toxoid, and acellular pertussis vaccine, adsorbed Kwasi Pop III [facility] 2002 hepatitis B vaccine, adult dosage Kwasi Pop III [facility] NEGATED: Highlighted row has not occurred!08-28-2018 influenza virus vaccine, unspecified formulation Kwasi Pop III [facility] Payers Date Payer Category Payer Medicaid [place] [id number] 2022 Unknown [id number] 2021 Unknown [id number] 2018 Unknown [id number] 2002 Unknown [id number] 2002 Unknown [id number] 2002 Unknown [id number] 2002 Unknown [id number] 2002 Unknown [id number] 2002 Unknown [id number] 1978 Unknown [id number] 1978 Unknown [id number] Social History Date Type Detail Facility Start: 06-15-2021 End: 03-12-2024 Tobacco smoking status Never smoked tobacco (finding) [facility] Comment on above: denies Denies Tobacco smoking status Never [facility] Comment on above: denies Denies Start: 03-12-2024 Sex Assigned At Female F [facility] Start: 03-12-2024 Tobacco use and exposure Smokeless [...] Sex assigned at Not on file [facility] Functional Status Date Assessment Result Facility 10-25-2022 Functional Status N/A [facility] 12-07-2021 Functional Status N/A [facility] 12-06-2021 Functional Status N/A [facility] Clinical Notes 07-05-2021 to 04-23-2024 Kaya Hernandez, MEDICATION TECHNICIAN - 04/23/2024 9:30 AM ESTSchema Aroldodarwin, MEDICATION TECHNICIAN - 03/12/2024 9:30 AM EST Note Date [...] nursing note reviewed. Exam conducted with a flow machine operator present. Vitals: Estimated body mass index is [...] or undercooked meat, and stay away from [facility]. Patient has been consulted regarding any further do's and don'ts of . Patient voiced understanding and all questions and concerns were answered. Orders Placed This Encounter Procedures Alpha fetoprotein, maternal POCT urinalysis dipstick manually resulted Follow Up: Patient is to return in 4 weeks for routine OB appointment. Documented by Kaya Hernandez LPN on behalf of: Yony Soto DO documented in this encounter [facility] 03-12-2024 History of Present illness Narrative Subjective April R Lenard is a 24 y.o. at 9w1d with [...] printed will give to patient at dating , [facility]/Dr. Bucio Daily vitamins OTC NatureMade PNV w/DHA & folic acid First trimester screening and second trimester screening discussed. Wants Genetic and Chromosomal Testing documented in this encounter [facility] 10-31-2022 Evaluation + Plan note Diagnostic Tests PendingFSH and LH 10/31/22Insulin Level Total 10/31/22Testosterone Level Total 10/31/22DHEAS 10/31/22 [facility] 10-25-2022 Evaluation + Plan note Extrac nohelia from: Title:ED Note Author:Emely GAY, Carlos Osorio te:10/25/22 Hand contusion (S60.229A: Co ntusion of unspecified hand, initial encounter) Orders: XR Hand 3+ Views Right Future Appointments Appointment Date:10/31/2022 09:00:00 AM Scheduled Provider: Location:.[facility] Appointment Type:US Abdominal/Pelvis (FT) Future Scheduled Tests Radiology* US Pelvis Non-OB Complete 10/31/22 [facility]06-29-2023 Hospital Discharge instructions Patient Education 10/25/2022 11:18:50 [...] An elastic wrap to support your hand. Nwtq-ptf-ywxflmp medicines to control pain. Follow these instructions [...] sitting or lying down. General instructions Take abix-atk-nlcxwly and prescription medicines only as told by [...] provider. Document Revised: 08/03/2021 Document Reviewed: 08/03/2021 [employer] Patient Education 2022 Fur and Mask. Follow Up Care 10/25/2022 10:12:59 With:Kathy Kraus Address: [address] [place] [address] [phone] Business (1) When:10/28/2022 11:08:00 [facility]08-11-2022 Hospital Discharge instructions Patient Education 12/07/2021 19:56:20 Cellulitis, Adult, Inig-nq-Ysrf Cellulitis, Adult Cellulitis is a skin infection. [...] Follow these instructions at home: Medicines Take eflx-bhz-loejsmi and prescription medicines only as told by [...] 10/01/2008 Document Revised: 09/04/2018 Document Reviewed: 09/04/2018 [employer] Patient Education 2020 Fur and Mask. Follow Up Care 12/07/2021 19:18:58 With:Kathy Kraus Address: [address] [place] [address] [phone] Business (1) When:12/10/2021 19:43:43 Comments:Take the antibiotics as prescribed you have completed the course. Please follow-up with your primary care doctor next 2 to 3 days. You can take the naproxen every 12 hours as needed for pain you can also take the Benld every 6 hours as needed for pain. Please return the ED for any new or worsening s ymptoms. [facility]08-11-2022 Evaluation + Plan noteExtracted from: Title:ED Note [...] Metabolic Panel 06/15/21 * Mononucleosis Screen 04/13/21 [facility]08-10-2022 Evaluation + Plan noteExtracted from: Title:ED Note Author:Emely GAY, Carlos Osorio te:12/06/21 Otitis externa (H60.90: Unsp ecified otitis [...] Metabolic Panel 06/15/21 * Mononucleosis Screen 04/13/21 [facility]08-10-2022 Hospital Discharge instructions Patient Education 12/06/2021 08:13:26 [...] antibiotic even if your condition improves. Take armb-bai-uykwued and prescription medicines only as told by [...] 04/15/2006 Document Revised: 09/19/2018 Document Reviewed: 09/19/2018 [employer] Patient Education 2020 [employer] Follow Up Care 12/06/2021 07:57:14 With:Kathy Kraus Address: [address] [place] [address] [phone] Business (1) When:12/09/2021 08:05:03 [facility]03-09-2022 Evaluation + Plan note Future Scheduled Tests [...] Metabolic Panel 06/15/21 * Mononucleosis Screen 04/13/21 [facility] Diagnosis Encounter for supervision of normal first in first trimester 9 weeks gestation of [facility] Diagnosis 15 weeks gestation of Second trimester state, incidental [facility] Narrative No data available for this section [facility] No data available for this section [facility] No data available for this section [facility] Summary Purpose Family History No Family History Records FoundNo Family History Records FoundNo Family History Records FoundNo Family History Records Found Advance Directives No Advanced Directives Records FoundNo Advanced Directives Records FoundNo Advanced Directives Records FoundNo Advanced Directives Records Found Additional Source Comments INFORMATION SOURCE (unrecogn ized section and content) DATE CREATED AUTHOR 08/08/2018 [place] [facility] DATE CREATED AUTHOR AUTHOR'S ORGANIZ ATION 02/10/2019 [facility] DATE CREATED AUTHOR AUTHOR'S ORGANIZ ATION 11/01/2022 [place] DATE CREATED AUTHOR AUTHOR'S ORGANIZ ATION 04/24/2024 [facility] EPIC Care Team (unrecognized sect ion and content) Personnel Name: Kathy Kraus NP Address: [address] [place] [address] Personnel Name: Kathy Kraus NP Address: [address] [place] [address] Personnel Name: Kathy Kraus NP Address: Address: [address] [place] [address] Personnel Name: Kathy Kraus NP Address: Address: [address] [place] [address] Reason for Visit (unrecogniz ed section and [...] BE BASED ON THE PRIMARY CLINICAL RECORDS. [employer] [facility]. provides no warranty or guarantee of the accuracy or completeness of information in this document.
[2024-05-28 21:07] LABS: Age Gdln ACOG Testing Note (.); HPV Aptima Negative (Negative); IGP, rfx Aptima HPV ASCU Note (.)
== END 2024-05-20 19:06 | disposition home or self-care (01) ==
LOC: LAB 19:05
PROVIDERS: Visit Provider Physician Assistant
DX: Z01.419 Encounter for gynecological examination (general) (routine) without abnormal findings (principal)
CPT/HCPCS: 87624; 88175

== ENCOUNTER 2024-06-10 12:00 | Emergency (ER) | payer OTHER, SELFPAY ==
[2024-06-10 12:11] VITALS: BP 131/69; PULSE 94; TEMP 36.6; O2SAT 99; BMI 35.9
--- OUTSIDE RECORDS SUMMARY | 2024-06-10 12:22 | XMS_ITS | CCD ---
Author Organization [facility] Care Team Providers Care Consumer Insights Specialist Name Role Phone Jacob Maria Elena Attending Unavailable Horn, Maria Elena Primary Care Unavailable Maria Elena Lara Attending Unavailable Jacob, Maria Elena Primary Care Unavailable Kathy Kraus Primary Care Physician Virginie Anthony Attending Unavailable Jose Duran Attending Unavailable MEGAN NESBITT Attending Unavailable Ivelisse Leger Referring Unavailable Ivelisse Leger Admitting Unavailable Ivelisse Leger Attending Unavailable Jose Duran Attending Unavailable Unavailable Primary Care Provider UnavailMIMI Cervantes Attending Unavailable SARAH MCKEON Attending Unavailable YONY SOTO Attending Unavailable Allergies Allergy Classification Reported Allergen(s) Allergy Type Date of Onset Reaction(s) Facility (2 sources) No Known Medication Allergies; Translations: [No Known Medication Allergies] Propensity to adverse reactions (disorder) [facility] Repository Medications Current Medications Medication Drug Class(es) Dates Sig (Normalized) Sig (Original) amoxicillin 875 mg / clavulanate 125 mg oral tablet (1 source) Penicillin-class Antibacterial Start: 12-07-2021 End: 12-17-2021 Augmentin 875 mg-125 mg Tab 1 tab(s), Oral, q12hr for 10 day(s), 20 tab(s), Refill(s) 0 Start Date: 12/07/21 Stop Date: 12/17/21 Status: Ordered cephalexin 500 mg oral capsule (2 sources) Cephalosporin Antibacterial Start: 05-20-2024 End: 05-27-2024 take 1 capsule by mouth in the morning, then take 1 capsule by mouth in the evening, then take 1 capsule by mouth at bedtime cephalexin (Keflex) 500 MG capsule Indications: Folliculitis Take 1 capsule (500 mg) by mouth in the morning and 1 capsule (500 mg) in the evening and 1 capsule (500 mg) before bedtime. Do all this for 7 days. 21 capsule 05/20/2024 05/27/2024 Active ciprofloxacin 3 mg/ml / dexamethasone 1 mg/ml otic suspension (2 sources) Corticosteroid, Quinolone Antimicrobial Start: 12-06-2021 End: 12-13-2021 ciprofloxacin-dex amethasone 0.3%-0.1% Otic Susp 4 drop(s), Ear-Right, BID for 7 day(s), 10 mL, Refill(s) 0, [facility]/pharmacy #[id number], 168, cm, 12/06/21 8:00:00 EDT, Height/Length Dosing, 107, kg, 12/06/21 8:00:00 EDT, Weight Dosing Start Date: 12/06/21 Stop Date: 12/13/21 Status: Ordered fluticasone propionate 0.05 mg/actuat metered dose nasal spray (1 source) Corticosteroid Start: 01-16-2021 take 1 spray(s) nasal route twice daily fluticasone 0.05 mg/inh Nasal [place] 1 spray(s), Nasal, BID, 16 gram, Refill(s) 5, each nostril, [facility]/pharmacy #[id number], 168, cm, 01/16/21 11:00:00 EDT, Height/Length Dosing, 109.7, kg, 01/16/21 11:00:00 EDT, Weight Dosing Start Date: 01/16/21 Status: Ordered fluticasone 0.05 mg/inh Nasal [place] (1 source) Start: 01-16-2021 take 1 spray(s) nasal route twice daily fluticasone 0.05 mg/inh Nasal [place] 1 spray(s), Nasal, BID, 16 gram, Refill(s) 5, each nostril, [facility]/pharmacy #[id number], 168, cm, 01/16/21 11:00:00 EDT, Height/Length Dosing, 109.7, kg, 01/16/21 11:00:00 EDT, Weight Dosing Start Date: 01/16/21 Status: Ordered GENERIC EXTERNAL MEDICATION (10 sources) take 1 tablet by mouth once [...] nausea/vomiting, # 60 tab(s), Refills(s) 1, Pharmacy: [facility]/pharmacy #[id number], 168, cm, 04/03/21 14:43:00 EST, Height/Length [...] 05-06-2020 Chronic Other and delivery including normal (4 sources) Normal ; Translations: [Encounter for supervision of normal first , first trimester] 03-12-2024 Episodic Other screening for suspected conditions (not mental disorders or infectious disease) (1 source) Patient encounter status; Translations: [Encounter for other specified screening] 05-20-2024 Episodic Other skin disorders (1 source) Folliculitis; Translations: [Follicular disorder, unspecified] 05-20-2024 Episodic Other upper respiratory infections (10 sources) Sore throat symptom; Translations: [Streptococcal sore throat] Onset: 08-16-2018 04-13-2021 Episodic Residual codes; unclassified (1 source) Gestation period, 9 weeks; Translations: [9 weeks gestation of ] 03-12-2024 Episodic Residual codes; unclassified (2 sources) Gestation period, 15 weeks; Translations: [15 weeks gestation of ] 04-23-2024 Episodic Residual codes; unclassified (1 source) Gestation period, 19 weeks; Translations: [19 weeks gestation of ] 05-20-2024 Episodic Skin and subcutaneous tissue infections (1 [...] Test Name Value Interpretation Reference Range Facility IGP,APTIMA HPV,AGE GDLNon AGE GDLN ACOG TESTING Note . [facility] Comment on above: TESTS RESULT FLAG UN ITS REF RANGE LAB Clinician Provided Cytology Information Source.............Cervix No. of containers..01 ThinPrep Vial Age Algo ACOG Tanya... FLAG LEGEND: L-Low Normal,H-High Normal,LL-Alert Low,HH-Alert High <-Panic Low,>-Panic High,A-Abnormal,AA-Critical Abnormal Performed at: 01 =[address] [address] Lalita Ibrahim MD, HPV APTIMA Negative Negative [facility] Comment on above: This nucleic acid am plification test detects fourteen high- risk HPV types (16,18,31,33,35,39,45,51,52,56,58,59,66,68) without differentiation. Performed at: =[address] [id number] Service Writer: Lalita Ibrahim MD, Phone: [phone] Performed at: [address] [id number] Service Writer: Lalita Ibrahim MD, Phone: [phone] IGP, RFX APTIMA HPV ASCU Note Abnormal . [facility] Comment on above: TESTS RESULT FLAG UN ITS REF RANGE LAB DIAGNOSIS: [A] 02 EPITHELIAL CELL ABNORMALITY. ATYPICAL SQUAMOUS CELLS OF UNDETERMINED SIGNIFICANCE (ASC-US). Recommendation: [A] 02 Suggest follow up as clinically appropriate. Specimen adequacy: 02 Satisfactory for evaluation. Endocervical and/or squamous metaplastic cells (endocervical component) are present. Performed by: 02 Mimi Jimenez, Dock Pumper (ASCP) Electronically si... 02 Lino Rodríguez MD, Pathologist . 02 Pathologist ICD10: 02 R87.610 Note: Note 02 The Pap smear is a screening test designed to aid in the detection of premalignant and malignant conditions of the uterine cervix. It is not a diagnostic procedure and should not be used as the sole means of detecting cervical cancer. Both false-positive and false-negative reports do occur. Test Methodology: Note 02 This liquid based ThinPrep(R) pap test was screened with the use of an image guided system. . 02 See below for HPV testing results. FLAG LEGEND: L-Low Normal,H-High Normal,LL-Alert Low,HH-Alert High <-Panic Low,>-Panic High,A-Abnormal,AA-Critical Abnormal Performed at: [address] [address] Lalita Ibrahim MD, Interpretation and review of laboratory results Abnormal [facility] SPATULA-ALONE CERVIX [facility] RECURRENT VAGINITIS (HTRX)on 05-21-2024 ATOPOBIUM VAGINAE 0 [facility] ATOPOBIUM VAGINAE Not detected [facility] BVAB 2,3 (BACTERIAL VAGINOSIS ASSOCIATED BACTERIA 2, 3); MOBILUNCUS SPP 0 [facility] BVAB 2,3 (BACTERIAL VAGINOSIS ASSOCIATED BACTERIA 2, 3); MOBILUNCUS SPP Not detected [facility] DAVIDA ALBICANS, PARAPSILOSIS, TROPICALIS 0 [facility] DAVIDA ALBICANS, PARAPSILOSIS, TROPICALIS Not detected [facility] DAVIDA GLABRATA 0 [facility] DAVIDA GLABRATA Not detected [facility] DAVIDA KRUSEI 0 [facility] DAVIDA KRUSEI Not detected [facility] CHLAMYDIA TRACHOMATIS 0 [facility] CHLAMYDIA TRACHOMATIS Not detected [facility] GARDNERELLA VAGINALIS 0 [facility] GARDNERELLA VAGINALIS Not detected [facility] MEGASPHAERA (TYPES 1, 2) 0 [facility] MEGASPHAERA (TYPES 1, 2) Not detected [facility] MYCOPLASMA GENITALIUM 0 [facility] MYCOPLASMA GENITALIUM Not detected [facility] NEISSERIA GONORRHOEAE 0 [facility] NEISSERIA GONORRHOEAE Not detected [facility] TRICHOMONAS VAGINALIS 0 [facility] TRICHOMONAS VAGINALIS Not detected [facility] Urinalysis macro (dipstick) panel (U)on 05-20-2024 Bilirubin, UA Negative Negative - 4(70) +++ mg/dL [facility] Blood, UA Negative Negative - 50 Titus/mcL [facility] Clarity, UA Clear [facility] Color, UA Yellow [facility] Glucose, UA Negative Negative - 1999(110) ++++ mg/dL [facility] Interpretation and review of laboratory results Normal [facility] Ketones, UA Negative Negative - 160(16) ++++ mg/dL [facility] Leukocytes, UA Negative Negative - 500+++ Tristan/mcL [facility] Nitrite, UA Negative Negative - Positive [facility] pH, UA 5.5 5 - 9 [facility] Protein, UA Negative Negative - 2000(20) ++++ mg/dL [facility] Spec Grav, UA 1.025 1 - 1.03 [facility] Urobilinogen, UA 0.2 0.2 - 12 mg/dL [facility] AFP, SERUM, OPEN SPINA BIFID Aon 05-19-2024 AFP MOM 1.09 . [facility] AFP VALUE 40.6 ng/mL . [facility] COMMENT: Comment . [facility] Comment on above: Torri John , Ph.D., [facility] Director References: Available Upon Request. Multiples Of Median Cutoffs For AFP Elevations Christianson 2.5 Black 2.8 IDD 2.0 Twins 4.5 Abbreviation Definitions IDD - Insulin Dep Diabetes OSBR - Open Spina Bifida Risk For further inquiries contact [employer] at [phone]. This test was developed and its performance characteristics determined by [employer]. It has not been cleared or approved by the Food and Drug Administration. Performed at: TG - [facility] [address] [place], [place] [id number] Service Writer: Amee Marmolejo [facility], Phone: [phone] GEST. AGE ON COLLECTION DATE 18.7 . weeks [facility] GESTAT. AGE BASED ON LMP . [facility] Comment on above: Recalculations are n ot recommended when gestational dating by LMP and ultrasound are within 10 days. INSULIN DEP DIABETES No . [facility] INTERPRETATION Comment . [facility] Comment on above: Interpretation: Scre en Negative [...] Customer Services to discuss available options. The [place] [employer] recommends amniocentesis be offered to women age 35 and older. [age] [facility] MULTIPLE GESTATION No . [facility] OSBR RISK 1 IN 9230 . [facility] RACE Other . [facility] RESULTS Report . [facility] TEST RESULTS: Negative . [facility] WEIGHT 220 . lbs [facility] N N LMP [id number] 1 15 N 1 Y 220 N N N N N White/ [facility] Urinalysis macro (dipstick) panel (U)on 04-23-2024 Bilirubin, UA Negative Negative - 4(70) +++ mg/dL [facility] Blood, UA Negative Negative - 50 Titus/mcL [facility] Clarity, UA Clear [facility] Color, UA Yellow [facility] Glucose, UA Negative Negative - 1999(110) ++++ mg/dL [facility] Interpretation and review of laboratory results Abnormal [facility] Ketones, UA Negative Negative - 160(16) ++++ mg/dL [facility] Leukocytes, UA Negative Negative - 500+++ Tristan/mcL [facility] Nitrite, UA Negative Negative - Positive [facility] pH, UA 7.5 5 - 9 [facility] Protein, UA Trace Negative - 2000(20) ++++ mg/dL [facility] Spec Grav, UA 1.02 1 - 1.03 [facility] Urobilinogen, UA 0.2 0.2 - 12 mg/dL [facility] MLR HEMOGLOBIN A1Con 12-16-2 024 Glucose [Mass/Vol] 97 mg/dL [facility] HbA1c (Bld) [Mass fraction] 5 % 4.5 - 6.2 % [facility] Comment on above: ADA RECOMMENDED LIMI T 4.0 - 6.0 ADA THERAPEUTIC TARGET < 7.0 ACTION SUGGESTED > 7.0 [facility] DHEASon 11-01-2022 DHEA-S [Mass/Vol] 254.0 microgram/dL Invalid Interpretation Code 110.0-431.7 [facility] Comment on above: Result Comment: Perf ormed at: [address] [id number] PhD Mp Holloway Performed By: #### 1 3283886, 6391105, 81049415, 5056982, 4695531, 1209080, 20218434, 3162091, 094364965, [id number] ####[facility] [address] [place] [address] FSH and LHon 11-01-2022 Follitropin Qn 3.7 m[IU]/mL Invalid Interpretation Code [facility] Comment on above: Result Comment: Adul t Female: Follicular phase 3.5 - 12.5 Ovulation phase 4.7 - 21.5 Luteal phase 1.7 - 7.7 Postmenopausal 25.8 - 134.8 Performed at: [address] [id number] PhD Mp Holloway Performed By: #### 1 9475933, 4204495, 38693920, 0232614, 1423681, 5996755, 62124041, 3740051, 138196450, 958548613 ####[facility] [address] [place] [address] Lutropin Qn 4.3 m[IU]/mL Invalid Interpretation Code [facility] Comment on above: Result Comment: Adul t Female: Follicular phase 2.4 - 12.6 Ovulation phase 14.0 - 95.6 Luteal phase 1.0 - 11.4 Postmenopausal 7.7 - 58.5 Performed By: #### 1 2557864, 4685667, 15006392, 0928026, 7493721, 3565070, 53319869, 9596229, 391631577, 894480942 ####[facility] [address] [place] [address] Insulin Lvlon 11-01-2022 Insulin Qn 12.8 u[IU]/mL Invalid Interpretation Code 2.6-24.9 [facility] Comment on above: Result Comment: Perf ormed at: [facility] [id number] PhD Mp Holloway Performed By: #### 1 3119570, 9130844, 25225946, 7633785, 4837717, 4727568, 29893020, 2131055, 936330275, 582740007 ####[facility] [address] [place] [address] Testost Totalon 11-01-2022 Testosterone [Mass/Vol] 31 ng/dL Invalid Interpretation Code [facility] Comment on above: Result Comment: Perf ormed at: [facility] [id number] PhD Mp Holloway Performed By: #### 1 9936258, 8691206, 71017901, 2972909, 7320508, 3787836, 48412585, 5779165, 293218325, 449011306 ####[facility] [address] [place] [address] CHEMISTRYOrdered By: SYSTEM SYSTEM on 10-31-2022 25-hydroxyvitamin D3 [Mass/Vol] 10.1 ng/mL Low 30.0 - 100.0 ng/mL [facility] Remisol Cholesterol [Mass/Vol] 190 mg/dL Normal 120 - 200 mg/dL [facility] Remisol Cholesterol in HDL [Mass/Vol] 44 mg/dL Invalid Interpretation Code [facility] Remisol Cholesterol in LDL [Mass/Vol] 108 mg/dL Normal <=129mg/dL [facility] Remisol Cholesterol in VLDL [Mass/Vol] 50 mg/dL High 7 - 40 mg/dL [facility] Remisol Glucose post fast [Mass/Vol] 94 mg/dL Normal 55 - 99 mg/dL [facility] Prolactin [Mass/Vol] 7.55 ng/mL Normal 3.34 - 26.72 ng/mL [facility] Remisol Triglyceride [Mass/Vol] 252 mg/dL High <=149mg/dL [facility] Remisol TSH Qn 1.29 m[IU]/L Normal 0.34 - 5.60 mcIU/mL [facility] Remisol CHEMISTRYOrdered By: Hiro fernandez on 10-31-2022 HbA1c (Bld) [Mass fraction] 4.9 % Normal <=5.9% [facility] ChemAutoSS Consent for Treatmenton Consent for Treatment [id number]#1 .00CD:127 Normal [facility] Glu Fastingon 10-31-2022 Glucose [Mass/Vol] 94 mg/dL Normal 55-99 [facility] Comment on above: Performed By: #### 1 7018473, 1483830, 67896671, 8686396, 0429012, 8535046, 11601035, 3031576, 290507338, 819902843 ####[facility] [address] [place] [address] UwjL1dbr 10-31-2022 HbA1c (Bld) [Mass fraction] 4.9 % Normal <=5.9 [facility] Comment on above: Performed By: #### 1 9490145, 4047995, 94493695, 7910001, 1627270, 9246476, 68116865, 1935857, 100123525, 825472134 ####[facility] [address] [place] [address] Lipid Panelon 10-31-2022 Cholesterol [Mass/Vol] 190 mg/dL Normal 120-200 [facility] Comment on above: Performed By: #### 1 1114336, 5973831, 72439127, 6329581, 6183311, 0380151, 13244513, 9710846, 089463584, 470049206 ####[facility] [address] [place] [address] Cholesterol in HDL [Mass/Vol] 44 mg/dL Invalid Interpretation Code [facility] Comment on above: Result Comment: HDL > or equal to 60 mg/dL: Low cardiovascular risk HDL < 40 mg/dL : High cardiovascular risk Performed By: #### 1 4120947, 9743874, 54473598, 7353500, 2413680, 6752283, 24230073, 6364331, 660759888, 384729637 ####[facility] [address] [place] [address] Cholesterol in LDL [Mass/Vol] 108 mg/dL Normal <=129 [facility] Comment on above: Performed By: #### 1 5896044, 1476730, 94829909, 0718201, 1932738, 5569590, 51884710, 4401441, 619796245, 019161050 ####[facility] [address] [place] [address] Cholesterol in VLDL [Mass/Vol] 50 mg/dL High 7-40 [facility] Comment on above: Performed By: #### 1 6778226, 2618768, 29012841, 2170611, 1854021, 3633382, 43411992, 2472479, 528475513, 812050866 ####[facility] [address] [place] [address] Triglyceride [Mass/Vol] 252 mg/dL High <=149 [facility] Comment on above: Performed By: #### 1 9030240, 7262962, 46654771, 5862070, 8457495, 8044835, 57097373, 7778390, 532974234, 383394358 ####[facility] [address] [place] [address] Physician Orderon 10-31-2022 Physician Order [id number] #1.00CD:127 Normal [facility] Prolactinon 07-05-2023 Prolactin [Mass/Vol] 7.55 ng/mL Normal 3.34-26.72 [facility] Comment on above: Performed By: #### 1 9222596, 6380455, 15171825, 4057015, 5339038, 2029010, 98377067, 0964796, 960957959, 298667733 ####[facility] [address] [place] [address] TSHon 10-31-2022 TSH Qn 1.29 m[IU]/L Normal 0.34-5.60 [facility] Comment on above: Performed By: #### 1 2253614, 9906566, 30260368, 2607060, 9195865, 0074117, 65889811, 7095540, 498868338, 572312652 ####[facility] [address] [place] [address] US Pelvis Non-OB Completeon 10-31-2022 US Pelvis [...] REPORT Dictated: 10/31/2022 3:10 pm Rito García MD. Signed (Electronic Signature): 10/31/2022 3:10 pm Signed by: Rito García MD Transcribed by: MILES Technologist: BARI Normal [facility] Vitamin D 25 Hydroxyon 10-31 25-hydroxyvitamin D3 [Mass/Vol] 10.1 ng/mL Low 30.0-100.0 [facility] Comment on above: Result Comment: Vit sanchez D deficiency has been defined as a level of serum 25-OH vitamin D less than 20 ng/mL (1,2) by the [place] [employer] and an Endocrine Society practice guideline. The Endocrine Society further defined vitamin D insufficiency as a level between 21 and 29 ng/mL (2). 1. IOM ([place] [employer]). 2010. Dietary reference intakes for calcium and D. [place]: The National Academies Press. 2. Lauro MF, Idris BRITO, Torin BRENNAN, et al. Evaluation, treatment, and prevention of vitamin D deficiency: an Endocrine Society clinical practice guideline. JCEM. 2011 Oct; 96 (7):1911-30. Performed By: #### 1 7577193, 2387305, 89233052, 2543670, 1224505, 7112428, 63520577, 0110831, 122177280, 517834986 ####[facility] [address] [place] [address] Consent for Treatmenton 09-28 Consent for Treatment [id number] .00CD:127 Normal [facility] Discharge Instructionson Discharge Instructions [id number] .00CD:127 Normal [facility] ED Clinical Summaryon 2022 ED Clinical Summary [address] [address] ED Clinical Summary Person Information Name: APRIL PUENTE [facility] Age: 22 Years : 2000 Sex: Female Language: Venezuelan PCP: Kathy Kraus NP Marital Status: Single MRN: [id number] Visit Id: Visit Reason: Hand pain-swelling; Hand [...] 10/25/2022 11:18:49 10/25/2022 11:18:49 10/25/2022 11:18:49 ADDRESS: [address] [place] [address] [address] [facility] [id number] PHYS DOC NOTES: MEDICAL INFORMATION: Prescriptions Given: Medications to Continue with No Changes Other Medications naproxen (Naprosyn 500 mg Tab) 1 Tablets By Mouth 2 times a day as needed for pain. Refills: 0. naproxen (Naprosyn) By Mouth 2 times a day. PATIENT EDUCATION INFORMATION: Instructions: Hand Contusion Follow up: With: Address: When: Kathy Kraus [address] [place], [place] [id number] Business (1) In 3 days 10/28/2022 DIAGNOSIS: Hand contusion Normal [facility] ED Note-Physicianon 10-26-19 ED Note-Physician Basic [...] 10/28/2022 EDT [address] [place] [address] [phone] Business (1) Additional Instructions: Patient Education Hand Contusion Attestation Patient seen and evaluated by the physician assistant toddler teacher. Attending physician was present in the emergency department and supervised care. This visit was performed by both the physician and an APC. I performed all aspects of the MDM as documented. This report was transcribed using voice recognition software. Every effort was made to ensure accuracy, however, inadvertently computerized associate director of development mistakes may be present. Appropriate healthcare PPE [...] throat Procedure/Surgical History bilateral tubes in ears (2004). Medications Inpatient No active inpatient medications Home [...] na Signed By: Dick Stark MD, V. [facility] Comment on above: Result Comment: Elec tronically [...] elastic wrap to support your hand. ? Jpic-law-jexlzcz medicines to control pain. Follow these instructions [...] or lying down. General instructions ? Take qczh-nvm-uegcmhx and prescription medicines only as told by [...] Reviewed: 08/03/2021 Elsevier Patient Education ? 2022 [employer] Normal [facility] ED Patient Summaryon 023 ED Patient Summary [place] [id number] Patient Discharge Instructions Person Information Name: APRIL PUENTE Age: 22 Years Arrival Date: 10/25/2022 10:11:42 Discharge Diagnosis: Hand contusion Primary Care Physician: Kathy Kraus NP Provider Information Primary Provider: Jose Duran DO Advanced Sorting Supervisor:Carlos Han PA-C The exam and treatment you received in the Emergency Department were for an urgent problem and are not intended as complete care. It is important that you follow up with a doctor, nurse practitioner, or physician?s assistant toddler teacher for ongoing care. If your symptoms become [...] Kathy Kraus [address] [place], [place] [phone] Business (1) In 3 days 10/28/2022 In the event that this physician does not participate in your insurance network, please consult with your insurance company to find a nearby participating provider. Patient Education Materials: Hand Contusion A MESSAGE TO ALL PATIENTS REGARDING OPIOIDS PRESCRIPTION OPIOIDS: WHAT YOU NEED TO KNOW Prescription opioids can be used to help relieve ntphorvf-zw-izbina pain and are often prescribed following a [...] be struggling with addiction, tell your health managed care specialist and ask for guidance or call [facility]S National Helpline at 7-157-002-Nduo.cn. v Source: [place] Department o (more content not included)... Normal [facility] XR Hand 3+ Views Righton XR [...] in mGy = na DAP = na [facility] Physician Orderon 10-22-2022 Physician Order [id number]#1. 00CD:127 Normal [facility] Consenton 12-11-2021 Consent [id number] .00CD:127 [facility] Family Medicine Office/Clini c Noteon 12-09-2021 Family [...] on course of Augmentin and provided with Electra during her second visit to the ED. [...] discussed with patient. Can also add an rord-igo-qdmpfhg antihistamine. Please follow-up with her PCP to [...] day(s), # 21 tab(s), Refills(s) 0, Pharmacy: [facility]/pharmacy #[id number], 168, cm, 12/09/21 11:32:00 EDT, Height/Length Dosing, 107, kg, 12/09/21 11:32:00 EDT, Weight Dosing Follow-up With When Contact Information Efra DOLL, Kathy R, [facility] [address] [place] [phone] Additional Instructions: Problem List/Past Medical History Ongoing Bilateral otitis externa Chronic diarrhea Duodenal ulcer Fatty liver Fatty liver disease, nonalcoholic Gastroenteritis History of COVID-19 Morbid obesity with BMI of 40.0-44.9, adult Nausea and vomiting Nausea with vomiting Non-smoker Smoker Sore throat Historical Anxiety Left upper quadrant pain Strep throat Procedure/Surgical History bilateral tubes in ears (2003). M (more content not included)... Normal [facility] Comment on above: Result Comment: Elec tronically Signed By: DELICIA SEVERINO, MEGAN Hernandez\.br\Date and Time Signed: 12/09/21 12:06 EDT Coding Summary.on 12-08-2021 Coding Summary. CD:[id number] G h0bWw+PGhlYWQ+SS6GYGB oP95bdVHewM3UM9mMOT4J [id number] JrrI0McmgRa FcbdmBDdRB17LJl6FOQ5n WazVNjngW2uzMUhL1d3Xb OtLZ40oI21HZfdSCPdNaA 3LjZpbjsgbWFy I6peAiCjbINbHzu+PHRhY mxlIHdpZHRoPScxMDAlJy IbiWldFJ6zAk0xXOAuMLU vbGxhcHNlOiBj f5ouJBDtGNwdSQ7ljKnlV 7HmzLD4EHNbv4n9Yo72cC I+BHLgCZQ4dDnjXDhps74 5TxCoc3ivNDC9 tCGkUCldMGK9A58uo6T5J QBqYCGbNFC0wQQ7hU3kcR jsbhlsL0MjcFYhLnY8VEU 8fFXnuS9wvLdj ekbdzT0sTdr+Z93RXO3SS VMEKM5ZRst7K7RiUkjucL I+KU91DNPsSW38cKPljPL yj3gyuWv0JkOd GXNlUEG3rTwlOTjts1VeW FCtM37lyARjb8V3AZXfvS thtYDsZpNimJK5xP4rMYe wgifzx7wgjwfs Hxumf7kctk18kB35C80nI SjrZQLbEEX2PPFkLRKldK obrq9baA5sFo5+OWrpy0k vj4vywZb9NaCt PQEubdQooAylHLJ4i8BjA a99W1CxxOmpy4SvBce7jj 54lPKjn1F3yDY9JKurEOW weK9lLIluGmY4 HLToBeCbvZ89iGVoWCgcT d1udVhvcSsmKZ7zLGWvmk bpHCHbcV9bQLMjiEFlqQj hFW0uSBGtqdrf w155UwIuNJM6JDVvjWYfA 6HfiY0pYrZkPBMcAGLgJ2 ReyZOiCNdcD844QNooKsD 6YZLbmdPqF2Bv XXUwzGlwTmC1d2G0Lq8Qw 7GajaupTBZ0CDwoRWF6Ll OoFuVwXhC7S2CaPfm3NRA kkIglUI5mN2Yz LXDtarxpitqwfHV2HLIeR DXwbU01mSDlDMjeJb2tf8 V5j385POXsTRJamV76Ph6 udDogMTBwdCBU tF7gjrtcq1kybobcDyWzW IRwDFl6PZd0VPRpoTrxBf QyRVX8ToY0UPX9zBEtcB9 vpWvxgzobzK8f Oyc+L73skM6eNLI6PHG7w cqnVAIfitTyUY53PF78C3 RyPjwvdGFibGU+PGRpdiB snDijKQ9aElQz z0tfi3VzHGhoP8BqKQJbV JmuJea0CTPfAWO0qZE5qB 4jNTWzNEyci6K7cGH5J8V hpwJexh4ym1ik ITLwGDdsW16dtDTft6V3Y AEpmRI0NPOhoMofDqUrvX 93Oyc+SZZypMrpv2MkDfl dj9svv1lpaRd2 LhYsSRUszrOvfEjrRFN7w 3VtSa71N28cYQntNKObAV NuEYSmGBEsnPdmkf8mjW8 wIi8+PGNvbCB3 gID0aG7vQZRtBfD2RVkkF 792LzMgvRTrAaxcu0ssp9 hrmEi3IpLeTFFpkvGzjHf hPFM1w3KvUo37 P96yFStgJZLqMFXbWBGvF TKijPwvoq3teM4iHc8+PC 3ro5klvl52dQ02vLG+PHR iTAP2iDvoIIns BTUsqR8xPUdiGeF5RHBtQ lJxeK69wRQjYMyiUg4pjM wabFofRK3qNXBvuhjkh78 6TeDol7trPPKz zNGjHDzsHXG6N14je5H4V CJeJJBpVZI6qSY2kP3jrG lnbjogbGVmdDsgdmVydGl zFUpuXDtfI936 IHRvcDsnPlBhdGllbnQgT zNmCDk0G0IxFmd0SUImwU zdPZ9egRYxTOauSh5ytWo icPlpRE0yNZZq kbvdg758VjBam4cvWYFsx WVcAOqwZRB1K54jl8R1HL GeFAOiRUA6vJK0iO2lsZx nbjogbGVmdDsg ztUddSarGEnyNRlvY830P HRvcDsnPkJpcnRoIERhdG F1BD43FG51lUUyo4I6hWY 3L0RrEZCxqqld dzocjHT4PORfCKOciZ43D r2yoChlLt4jUBGcBOS7RV UevHTfT6YarO5rXnGvQOV xUUUhZ1OmqRMr WKovG025VItsSxD4CIIlx lYjE2BfHRWcnFhhOlF7w7 D4Bu6NT5P3AC63DV97jZL rx1F1aZE5L6Hf ZLPndqyxyimkaIS1VEJiR TMyqO52Lj6yoTlnDs2uXX LtNIQ7BDBmfSHzR6YjyE9 yOiAjMDAwMDAw A2NtpHHcXLcvI073QLosO hA4RKQcpgFlP1OeEQDmtZ nwEhZ7g7F9Ha2SWEa4ZS4 9NW42wOYzi8U8 xYT6O4UlRAIadueefgqrd QY8EKDrFVDhzN65Ny3usT mhNp8zQURtBZP2OSMykCY uO4TdvP6jLgHq GKFdFIXaO9JoeVKxTUcpL 709BObdArZ6QTPjusWvH6 FsCLAhmCgrThP1u9P1Cq0 ODZEyLE26GVK4 wXH9WX75EU52F4VbMjdup GFibGU+PHRhYmxlIHdpZH RoPScxMDAlJyBzdHlsZT0 qUb9dWZVaIDBz yByotJKbIjKbb8bnWXPqH AllSO1tqIzvF4RqqER3CF Jsj4s3Bf43Q13aY1PfyVJ +ACVzvCK1jCN1 gT4qVhZmHnJ8PQhnW269H bMcwIYsFtric3mwo1zelX s5PzM1VIMwbxOpmIhtITG 8j6JjOq49L80w IHdpZHRoPSIxNSUiIHZhb Niwzt1jvC0eNn0+PGNvbC L2wSF5tY4wDyWnHfA4DLl bO689VgFipINb Gulzg9iza6nqeTp1WhNdP EEnlxNfuQckEMC5s5TjXl 10O4RvuLdva3HpZiy9ae1 7oNWaj3A4wOO3 L4MsCBSpahxwkBValEoaV B6yDAAszcxoSWCymV1tZQ VgX4z9RbWaHzN0VKshD3J wbeV2DLEhcWJs GUztPNS2V34lz1N3FFSkF CQxTZV2xFP3lC7cxLjtdl ogbGVmdDsgdmVydGljYWw hVPisZ275VPGj tLmgBMSzqF7zPCHvvYJjk XowZV1mWSHbraopUx4IX7 VOWklFLCBTSEVMQlkgUjw vdGQ+PHRkIHN0 uWmyCKupHHGttV8vLBKhD 5d2UcWnKhF1LSvhD9IiLA XsdbeoLa83qZ8gDzJwCeO 3AMziF4HyqrQ2 LXWmgQOjGQxyQPJ1G33zb 3J8QCKhOGLgIMY6kQY2gG 1hbGlnbjogbGVmdDsgdmV ydGljYWwtYWxp W997MVGkwTmuBzM2EmI0G yAfTOM4T1UySxu4AZFclD vxTG8ucNLfNNmwVz5biUr bgMenRD5tNYFu gonsAEQsaW4nJUYuwYWfe IosMZ2zZJMcsaolj006Wx PzKDH1WINzkUZiB8YsgJ2 yOiAjMDAwMDAw F5KhmMRnMIczS949GIwkT vJ3ZOSzryKlF0XsJRUyzG tmSsL2n5A8Sf5yJAWLJRT yczwvdGQ+PHRk NVW4lUpxEVjaSDMwsE8bS GTzA4q3GhSxXyL4YXafE8 VnMXAuzivbYy84wZ9bByF tPaQ4IHqxC8Pj xmX5TEMpfEUxZGcaHXD6I 40ga3F1EAXwWJQvDBV3uG O5yN6sqEmangtgiPAtwUi gdmVydGljYWwt EEbbQ591YRAxaUajXhKrx WFsZTwvdGQ+EYBsXEU7fT ncDAnbGTLazA3sDACoD7u 3ErSdSdU2AXsr U4MfJMVlivdqIo31fF1sN yXwQhR5RLyxF9PbprD8WB IjaGZyRSrhSJG8O46mi9G 4GZDfNCQhCYU8 oVW2rJ3mwMugbrcteCJfp DsgdmVydGljYWwtYWxpZ2 25CNZlyQpwGlYpOCZvHQ3 jeTwvdGQ+PC90 vs64K4AcChztJai7COFmA CF0oHY3yU5gGHTtDDlpv1 E8kSF9W4WrlxMsoj6ks8r nMOJjZTgaT71q rQXee4F8SZOueWY3CYZxp IejEzCcbY26Zxj+PGNvbG uri1GvAzpbe8vsb5cojIh 9IjMwJSIgdmFs zKoxIRS7k5KxWw83B24sE HdpZHRoPSIzMCUiIHZhbG uvkf4jaU9eMh0+PGNvbCB 3fAR9uE3qNpBt EnU0CDibQ084MtYeuSKmW okab1idh3tlbMx4RhAwAW JvreIfgUgsXLO5j5QsEy4 3G8EshYphj6Cf Kpu7hf13mYBta5T7fYN6R 3BhZGRpbmctbGVmdDogMC 6bHNRnxsnhZWJdrI7qEJS qZ7k9FiCpGtZ6 VHrlR2KrowW6EJQljZAmS XEvkGRSpM6xlssuc0frvb fhHfBtYNXlXIw3AVi9GCB saWduOiBsZWZ0 TgI5WRS4vNFktC6amWwah bpcsY8fFsl+FAc7l0vbgY VxKI3bqJN1YH93JM23hBL gm7Y6wHL3R3Km BGTfebglxfheqFO5IMYyP OBzyA66Wh3lvLeeRp5iIF SeIQG6FHZstYIgE3JzmT9 yOiAjMDAwMDAw X0KukAWlJSrkG537XTvgI nC7UBKlkiFmR7YbYPDisT ovCmY0e3E8Ru9WHC51VF1 3XD59aPBgm4G9 nEB0C7KbWFKqtifukryik DJ6AMUtCQKqwV55Xd0qqQ xwBk0iOFRbYYY6EDEjeUZ vI1RsvL2mInRl OAPlVSJbE8TrlPZbEHkuM 134TPrvIvN4VLGzmfClP7 SyLQKcoPkkLnY7m0F2Lw8 YQj73QN39PV71 pHKsn8L2mPW4A6BdTBZcs vmyrmbcaYA6ZAOeMIGatH 08Ds7yaKorDm2tDRRiZJN 8SVSehCYnQ6Sr bY7oKkFvXBVzMGMmY5Egl GUoIUszX042QRwdGpQ5TH LorzVvX1DuJHUaeDnoHbH 0b5N9Cw3TQOsn wxf1Z1EvKgtvaYJ+PC90Y VQtIH76uCUpgIVnz0speK n1MeIiLIZrXCA0yDqmYIf vz3ZqLTYdT07h bGFw (more content not included)... Normal [facility] Discharge Instructionson Discharge Instructions [id number] 1.00CD:127 Normal [facility] Coding Summary.on 12-07-2021 Coding Summary. CD:[id number]:3917056T G h0bWw+PGhlYWQ+LX2GRDJ yA67vnGSbrA0GJ2uHWS0Y THBAYKILWA3EAF9vfMM2M RxmL3DvztVz KhfxnWJwPG81QXm1SKA7f XjaDPqrcP4ujCGlJ8k3Ck WkOG65iD28GUxhZLDwKbC 3LjZpbjsgbWFy K5xrTwOptLUpFpd+PHRhY mxlIHdpZHRoPScxMDAlJy XwvQmhUW4iPh8rFVWrWHE vbGxhcHNlOiBj o1siNNVqDKhjNZ4plCwsB 1YvqNX5EFBrj0a8Dv03oI I+NTCfNDR5lWqdMQiiu57 2DaKud6ecDLZ9 rFLhPYzlZDL7T46ei3R7I UIfAJTeJID7zKR9uM9hlH xgringX9BkiDMvJaY4SMZ 0nGSvjG1wmVtm yzaewA4qCht+U50NZF6TJ SGHUH8TUak0B6MdKtebzS I+KH79TSRgFT55cTLvzEG bh5aliYz7RlLa FXXdNBW0aGrvXGdvl6GmA WQvB16jvAZca6H7VCQiqF dgkQFxMdCkoFS8cW2lFWl xeiyqq6wgxxim Yqcrg1wufa31lA31Q90vM QhdEAOqXYY0MXRdQNZdrL edzn2kvV1kRz2+ZSwop9u xe3bpqSv7BvIx CQRxccVfjIxaIOH8y6ZcV o68T9RerZnba9HdDpu8kl 91wHPup0J9bYV6LEfcNYF nxA6tZWfgVaE9 NLUpFcYqvM59xTZcWRukY g7xcLcykOofTS0kNWTiyl zyOYJtyI3rXUOkjYPcbDs yWY8wMOHhbmxh w251GqWfGEF0DSTvbTIwP 4WhgC1mEsNuMCUjRMZsV1 DvsWUoIBwwV732FJrzOmT 4YRJatcAcB5Ye LQSqkXlbQxX2o5V4Wn5Yw 2GlgkmmUFT5XCzcENM2Ps HyPfVcNbL1W3QxYkz2ZQF ntBflNT3sG2Cl XOVkevppcyuczJT2CYRdD UZwcF19sDBxFRcoKq3rt9 O6r557LHZgNYEwmV76Sb2 udDogMTBwdCBU nS5nozdrw6urczvyJbKvC LFvASt8GWi3GLIvuXubNx MqFUP6SuD4CTN1hAAzpH3 crFpnjwmmbS7c Oyc+R78lrF6bBRG8UBS6p jlzFKTzxxBsDU28VI79C1 RyPjwvdGFibGU+PGRpdiB srJmiKI0dTnYw k8kkf4IcYKlaZ6LtIODxA UbvCox5TTPkDFH0mRQ0gG 5gGNErYZbyn4C5xLV4T0A lvzAemp6rw5av MHExMBvzB31hzWAug7S0A XFrxDC3VYCdfUkgCgYecL 93Oyc+PBBnuKqtz0QmEca hd3ibw9lefAh3 BwQkHFZljtYdjXsoHGH7g 0KtFl67Z01hJSrzUPOwEF VvPFMwRKVfdVvhly2ycJ4 wIi8+PGNvbCB3 dAF5uJ8cPOPbSiG4PEnyP 555MyGypDKhAwpwk0jnl5 bwkFf2XbXtGAWkimLopCf fLXR3z9QcXi77 B33sOTrmCARmXJIaTSHnP CCspQrsow2wiE5oBm1+PC 9lk1klts11gB50oIM+PHR lCJN3nEhkEWvn FWRlrN8hTSkfIlH7OZUjC mRkcL59oIEqQCipOm5eiY nkrFrqEP1kKEKhecpbl22 6ZaNdg7mdIDOt dNLyVSsgJAA7X42te7K3R HPeFRLbRVI6uFV6lV9oiH lnbjogbGVmdDsgdmVydGl tYMaaNOnhM377 IHRvcDsnPlBhdGllbnQgT tCsVIg9M8XeEqv5UZUueL miIQ8beGHbACvmYg7zdBc cbMjyTF3yDEHv pkobl386FoAht7ttHHAtx JAhTEyaEAN6E44yh9Q3IE LtSFVeXTY8yUP7fN4omBs nbjogbGVmdDsg ldJeqNjvDSuzSVygF376O HRvcDsnPkJpcnRoIERhdG N5PT89RO98qGWci9Z5kUA 0K1IxIPQdlhys fockdEO5ALYpXQLejA04H s3lmQikBg9lYIJwBEI5FY LjtUPcF9YfcG1kKqAmUGR uUEOtM3AlrEMv HJjnJ222KNwhHgH3EXVum lWrU3FdYANsuZynCsA3m5 D6Vl9CY0G4QA47PM81aCE tu0U5vUT9A4Ce NKVmgapvliksaLU4EXKcZ KPklS44Cd5eqZepGu1nNQ VxFZM4GSZymBAjP9HstX1 yOiAjMDAwMDAw T5CyyCRuGWtqC734EHnrP rY2ZJRuyhOiK9WuJKVksP rdJuW0t5Q4Oe5WXGd8MI0 1YX64cDYoz8I9 wMW1R5NhWJIrlvoebpwpq CF4RUDsIAFcxE71Ko4onG bfKc9bOOSnDXO0ZPRodTK yO7ObxB8wSzQu XGAaBMZfZ0MrjLFsJKjdN 730LYllRaG5LNZxplQcH6 AqJANzpXczHwF0z2H4Kg3 DZAFeKU15PXJ8 dQW5RL97WO48W2VxZqrii GFibGU+PHRhYmxlIHdpZH RoPScxMDAlJyBzdHlsZT0 kRx6jYUApWAUy xWerxUEfEaMnq9prMQIiB GwkIX6xkPxjE8LjuPC5GP Hdc3d9Wi36N62iS9OtwHW +DRNsiMR1cEP8 xK3fVzNeSjG7GPsaU088Z mExcRMtCafjb3txg9aunA x3TkP0TRJyliAixZwiRQD 7n4BiLt32E97e IHdpZHRoPSIxNSUiIHZhb Ilnxt9rlS3dTw4+PGNvbC E4gJV9fD0sJwFnIcB2RIk bM323WlZqrWJx Axlxg8ezm8ejlXw5UdQfK QNybsZeyAisYDP1v8NjXd 53S9SxpPgty7KkTie4wu6 3wIGko0L9mFR1 W0TrLYWstliscRIvaKkjQ B2hKKDgprcnETVnaU3cPY MrD2g7FrRsCpO5PJhuN7R atqT9HHWtvODo RBqjSTL0Z20uj2X9MQVuC FHkNRD6nEV4qY0feYctlc ogbGVmdDsgdmVydGljYWw qHPokI105AMBj qGtxHQKmjA0lNAQslJIpk VtoYU9oRIIqvwgvQf6VS9 VOWklFLCBTSEVMQlkgUjw vdGQ+PHRkIHN0 oDzhDLbkSDDyvN6pVUUwV 0s5WuHwAxI3QOeoD4NvZH DtswwmYp43iP3lRzRaPeG 1CNgcF7BokrG8 IUJhzLRrHWknUIE2N83gb 2S3OQSnUFMzBSB0hQJ9jG 1hbGlnbjogbGVmdDsgdmV ydGljYWwtYWxp D263ZXMywHjgKbW1LgZ4O nAkKII9Q9UzMtd2SMXgnD joPJ7wlLWeOEjmSg8aiEw jhHzfYK2gYDEi tfabICIpxY6tTIRhnBEnt GarVP3xURTtwsxzd331Zy RlWKJ8NIEhxMYfJ8ZrbM8 yOiAjMDAwMDAw O9KiwPPyINwcL282TWplZ yF2UATuogFmE2BxJFIbiU bcGsV0q0W1Wr6hNRKBKTX yczwvdGQ+PHRk SOW1cXtnSFwmWPKthO9dP FIxU4g3YiLaAyN6CMpqG8 AxNSSzpnwvTu42bR3bViW zOgL6KGluG9Zw qyY9QCGkaXXbPOubGQL0R 37sd3D7XKEbBHVuROK4pK L1hH7gjDaqmhekkDQosVf gdmVydGljYWwt YHxcY513BFYbrBsvWlBng WFsZTwvdGQ+FDSgSLS3lP idTVnsUMSxqX5kMRQcF7s 2YhLpIeE6XZgv C0DxQZJxydmuEd44vW4uJ oMkUaK5IZwqX8OzifJ7AW CulFFoVAvyGUW5N31so7A 7OSUwJBEnBTK6 wNX4hN6zbNaknujekAMwe DsgdmVydGljYWwtYWxpZ2 54UYFduFenVtBpWUBjWT1 jeTwvdGQ+PC90 dc37L2LnIzisInb1GTJeI CF5oWS2oI1jSMNxSQlti6 T3pGH6E9XkigXkqv4zb2n eIJMxFHsmT03a mHZgy7X1MVCogLA9LOZpf XhqLyEesG35Ass+PGNvbG phb0PwHzwyu1zbw5eqzTz 9IjMwJSIgdmFs qJqeXIM4l9LpCa96C74mR HdpZHRoPSIzMCUiIHZhbG hztp0lvA7eSj4+PGNvbCB 5hMX5rA2pBeNj NkJ4QVghB638SqBfcOTrW wdqq3xze8hrzNg8XnWkGT GeoeOgoVudSLP8d0EtDi9 1U6XubXdtx9Gg Rjw5zx86hJYfy5B2yMU9N 3BhZGRpbmctbGVmdDogMC 2kBWIeilybUQYzuE8yEIH hI4f2XmSgQkU3 MMskN7NrniD8BXLqbEDlN CGejXKVbB0vtuvcg9adeq zxDlEpLKJvJBs9RQp5UMH saWduOiBsZWZ0 LwW5RXZ6sZPjrI9ppLasc rhdiY2kVae+FCr5q0kolZ QbHA9fcVN7EX79ZT79qRV ge1B0zQW3K5Gw KDMoiwchpdqntRR9GGMxQ ANfaE45Db1mnBvaZz1oHJ FvCLR3VAMrlRVxM2XshL9 yOiAjMDAwMDAw P7MikWXfACldR764ZOxxH kI5ISZjagNhB3SwXKUkhY gsBrF8p1D3Kb4IOH54CD1 5MT33rLEbo0A5 jFV7F1AvYMGkynuoriivo UH0RCPuGVKavM39If3wpK kdBb6sBJOxSTH3KNAmkHH cC0SzmX5xJhCa CFHcNNQeH1QoeUZvGFhcY 177XKtrJvH2CBRwqrXrQ5 UvSDTftDxqUxS1k7P3Nu6 VSa73LX68KC94 bCJxu0Q5cEW2Y4BfTJIvu eiesbbhjWX8JDEqLDZskP 54Pz5yePatXv6fFHIjFGP 9ZTRsrQGuV3Ge jU8aLdMoMZKsQBWvH6Tqz TIpJBizN621LEryXeC2GA HjgcGhI3VvCEFyxKnkGfX 3d5S0Dp8IRSyy grm1G7YqQntztNY+PC90Y HPiOT44qIQiwLQrk0dqzJ w2JiKpWRIoVYW0xDzvZLq xf5DtPEQlB42r bGFw (more content not included)... Normal [facility] Consent for Treatmenton 11-27 Consent for Treatment [id number] .00CD:127 Normal [facility] ED Clinical Summaryon 2021 ED Clinical Summary [address] [address] ED Clinical Summary Person Information Name: APRIL PUENTE[place] Age: 21 Years : 2000 Sex: Female Language: Venezuelan PCP: Kathy Kraus NP Marital Status: Single [...] 12/07/2021 19:56:19 12/07/2021 19:56:19 12/07/2021 19:56:19 ADDRESS: [address] [place] [address] [address] [facility] [id number] PHYS DOC NOTES: MEDICAL INFORMATION: Prescriptions Given: [...] 0. PATIENT EDUCATION INFORMATION: Instructions: Cellulitis, Adult, Duvc-kg-Args Follow up: With: Address: When: Kathy Kraus [address] [place], [place] [id number] [phone] Business (1) In 3 days 12/10/2021 Comments: Take the antibiotics as prescribed you have completed the course. Please follow-up with your primary care doctor next 2 to 3 days. You can take the naproxen every 12 hours as needed for pain you can also take the Electra every 6 hours as needed for pain. Please return the ED for any new or worsening symptoms. DIAGNOSIS: Cellulitis of face Normal [facility] ED Note-Physicianon 12-08-19 ED Note-Physician Basic [...] days 12/10/2021 EDT [address] [place] [address] [phone] Business (1) Additional Instructions: Take the antibiotics as prescribed you have completed the course. Please follow-up with your primary care doctor next 2 to 3 days. You can take the naproxen every 12 hours as needed for pain you can also take the Electra every 6 hours as needed for pain. Please return the ED for any new or worsening symptoms. Patient Education Cellulitis, Adult, Hebf-pz-Fukh Problem List/Past Medical History Ongoing Chronic diarrhea [...] 10/02/2020 Cu (more content not included)... Normal [facility] Comment on above: Result Comment: Elec [...] these instructions at home: Medicines ? Take zixq-kde-cwpabfv and prescription medicines only as told by [...] 10/01/2008 Document Revised: 09/04/2018 Document Reviewed: 09/04/2018 [employer] Patient Education ? 2019 [employer] Normal [facility] ED Patient Summaryon 022 ED Patient Summary [place] [id number] Patient Discharge Instructions Person Information Name: APRIL PUENTE Age: 21 Years Arrival Date: 12/07/2021 19:17:33 Discharge Diagnosis: Cellulitis of face Primary Care Physician: Kathy Kraus NP Provider Information Primary Provider: Virginie Anthony DO Advanced Sorting Supervisor:None The exam and treatment you received in the Emergency Department were for an urgent problem and are not intended as complete care. It is important that you follow up with a doctor, nurse practitioner, or physician?s assistant toddler teacher for ongoing care. If your symptoms become worse or you do not improve as expected and you are unable to reach your usual health care provider, you should return to the Emergency Department. We are available 24 hours a day. ART APRIL Bib has been given the following list of patient education materials, prescriptions and follow-up instructions: Follow-up Instructions: With: Address: When: Kathy Kraus [address] [place], [place] [phone] Business (1) In 3 days 12/10/2021 Comments: Take the antibiotics as prescribed you have completed the course. Please follow-up with your primary care doctor next 2 to 3 days. You can take the naproxen every 12 hours as needed for pain you can also take the Electra every 6 hours as needed for pain. Please return the ED for any new or worsening symptoms. In the event that this physician does not participate in your insurance network, please consult with your insurance company to find a nearby participating provider. Patient Education Materials: Cellulitis, Adult, Erxk-tr-Ccuf A MESSAGE TO ALL PATIENTS REGARDING OPIOIDS PRESCRIPTION OPIOIDS: WHAT YOU NEED TO KNOW Prescription opioids can be used to help relieve sjlaaulu-ij-vmsbtv pain and are often prescribed following a [...] Drug Administrati (more content not included)... Normal [facility] Consent for Treatmenton 11-27 Consent for Treatment [id number] .[id number]:127 Normal [facility] Discharge Instructionson Discharge Instructions [id number]:127 Normal [facility] ED Clinical Summaryon 2021 ED Clinical Summary [place] [address] ED Clinical Summary Person Information Name: APRIL PUENTE [place] Age: 21 Years : 2000 Sex: Female Language: Venezuelan PCP: Kathy Kraus NP Marital Status: Single [...] 12/06/2021 08:13:25 12/06/2021 08:13:25 12/06/2021 08:13:25 ADDRESS: [address] [place] [address] [address] [facility] [phone] PHYS DOC NOTES: MEDICAL INFORMATION: Prescriptions Given: New Medications [id number], [address] [place] [phone], [phone] ciprofloxacin-dexamet hasone otic (ciprofloxacin-dexame thasone 0.3%-0.1% Otic Susp) 4 Drops Right ear 2 times a day for 7 Days. Refills: 0. Medications to Continue with No Changes Other Medications fluticasone nasal (fluticasone 0.05 mg/inh Nasal [place]) 1 Sprays Nasal Inhalation 2 times a day. each nostril. Refills: 5. promethazine (promethazine 25 mg Tab) 1 Tablets By Mouth 2 times a day as needed as needed for nausea/vomiting. Refills: 1. PATIENT EDUCATION INFORMATION: Instructions: Otitis Externa Follow up: With: Address: When: Kathy Kraus [address] [place], [place] [phone] Business (1) In 3 days 12/09/2021 DIAGNOSIS: Otitis externa [facility] ED Note-Physicianon 12-07-19 ED Note-Physician Basic [...] 12/09/2021 EDT [address] [place] [address] [phone] Business (1) Additional Instructions: Patient Education Otitis Externa Attestation Patient seen and evaluated by the physician assistant toddler teacher. Attending physician was present in the emergency department and supervised care. This visit was performed by both the physician and an APC. I performed all aspects of the MDM as documented. This report was transcribed using voice recognition software. Every effort was made to ensure accuracy, however, inadvertently computerized associate director of development mistakes may be present. Appropriate healthcare PPE [...] drop(s), Ear-Right, BID fluticasone 0.05 mg/inh Nasal [place], 1 spray(s), Nasal, BID, 5 refills promethazine [...] available. Diagnostic Results No qualifying data available. [facility] Comment on above: Result Comment: Elec tronically [...] even if your condition improves. ? Take zwos-jyo-bxqgxnw and prescription medicines only as told by [...] Document Reviewed: 09/19/2018 Elsevier Patient Education ? 2019 [employer] [facility] ED Patient Summaryon 022 ED Patient Summary [place] [id number] Patient Discharge Instructions Person Information Name: APRIL PUENTE Age: 21 Years Arrival Date: 12/06/2021 07:56:28 Discharge Diagnosis: Otitis externa Primary Care Physician: Kathy Kraus NP Provider Information Primary Provider: Jose Duran DO Advanced Sorting Supervisor:Carlos Han PA-C The exam and treatment you received in the Emergency Department were for an urgent problem and are not intended as complete care. It is important that you follow up with a doctor, nurse practitioner, or physician?s assistant toddler teacher for ongoing care. If your symptoms become [...] Kathy Kraus [address] [place], [place] [phone] Business (1) In 3 days 12/09/2021 In the event that this physician does not participate in your insurance network, please consult with your insurance company to find a nearby participating provider. Patient Education Materials: Otitis Externa A MESSAGE TO ALL PATIENTS REGARDING OPIOIDS PRESCRIPTION OPIOIDS: WHAT YOU NEED TO KNOW Prescription opioids can be used to help relieve lykctoxn-gc-tisfdl pain and are often prescribed following a [...] be struggling with addiction, tell your health managed care specialist and ask for guidance or call SAMHSA?S National Helpline at 9-955-358-HELP. v Source: [place] Department (more content not included)... [facility] Reference Laboratory Testing Ordered By: Cari LanzaUser on 05-08-2021 SARS-CoV-2 (COVID-19) RNA GA+probe Ql (Resp) Detected Invalid Interpretation Code Not Detected [facility] Comment on above: Result Comment: Chanel ents who have a positive COVID-19 test result may now have treatment options. Treatment options are available for patients with mild to moderate symptoms and for hospitalized patients. Visit our website at [email or web address] for resources and information. This nucleic acid amplification test was developed and its performance characteristics determined by [employer]. Nucleic acid amplification tests include RT-PCR and [...] detected) result in this assay. Performed at: [facility] [id number] PhD Mp Galdamez 02-10-2019 CNCO Letter Text Normal [facility] CNOVon 02-03-2019 CNOV Office Visit (PNTRMN ) APRIL MIN ([id number]) 4 F Date Time Provider Department 02/03/19 4:15 PM OCCUPATIONAL NURSE CINDY BOB During your visit today, we recorded the following information about you: Weight Height 110.9 kg 1.63 m Татьяна Quiles, RD 02/03/2019 4:30 PM Signed INITIAL ASSESSMENT [...] x 100-150 hakeem snacks daily is ok https://[employer]/ health/663-uyugpiw-ff acks https://www.Mediasmarts.c om/961-jnmcrak-umdvyg / 1/2 serving healthy fat: 1/2 oz nuts (2 TBSP) - dry roasted, lightly salted or no salt OR raw 1/4 avocado 14 large olives or 23 small olives 2. Supplements: Recommend vit D - 50,000 IU as was prescribed by Shea Thomson in October. [facility], you [...] 2 months for attainment of goals. April Mccartney Art Fried is a 19 year old female, [...] February 03, 2019 TIME: 3:48 PM PAGER: [phone] 02/03/2019 4:22 PM Addendum [...] x 100-150 hakeem snacks daily is ok https://[employer]/ [employer]/200-ausriwd-fo acks https://www.[employer] om/811-fjnzvbz-vefdpw / 1/2 serving healthy fat: 1/2 oz nuts (2 TBSP) - dry roasted, lightly salted or no salt OR raw 1/4 avocado 14 large olives or 23 small olives Supplements: Recommend vit D - 50,000 IU as was prescribed by Shea Thomson in October. [facility], you should be able to get this filled. Activity: Goal of at least 30 min per day OR look up tabata workouts on youtube Follow-up: 2 months Татьяна (Batool Ayala) Evelia, , RD, CSP, LD [facility] [phone] Referring Provider: SHEA THOMSON) [[id number]] Allergies As of Date: 02/03/2019 (No Known [...] x 100-150 hakeem snacks daily is ok https://[employer]/ [employer]/661-plflffk-rr acks https://www.[employer]/038-fxjpakd-qrygxn / 1/2 serving healthy fat: 1/2 oz nuts (2 TBSP) - dry roasted, lightly salted or no salt OR raw 1/4 avocado 14 large olives or 23 small olives Supplements: Recommend vit D - 50,000 IU as was prescribed by Shea Thomson in October. Call [facility] about this, you should be able to get this filled. Activity: Goal of at least 30 min per day OR look up tabata workouts on youtube Follow-up: 2 months Татьяна Ayala) MS Evelia, RD, CSP, LD [facility] [phone] Letter Text Encounter Status:Closed by ТАТЬЯНА QUILES on 02/03/19 Normal [facility] CNOV Office Visit (PGASMN ) APRIL MIN ([id number]) 4 F Date Time Provider Department 02/03/19 [...] lifestyle intervention at the request of Dr.Sophia Thomson. History obtained from: Mother and Patient. HPI: She was seen by Dr. Thomson for RUQ abdominal pain and had ultrasound as part of evaluation which showed hepatic steatosis and was referred to us for further management. Reasons for wanting to achieve a healthier lifestyle: Obesity and NAFLD. 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 Recently, her weight trend has been: Trending [...] surgery? no Diabetes: yes in maternal grandmother CAD/VT: no Early coronary disease in first degree [...] Abs Lymph 1.00 - 4.00 k/uL 2.76 [place]% % 8.4 Abs [place] <0.87 k/uL 0.70 Eosin% % 1.7 Abs [...] clinic, April Fried will meet with a grazing aide today. 2) Obesity: Yes 3) Hypertension: No [...] up in 4 months Referring Provider: SHEA THOMSON) [[id number]] Allergies As of Date: 02/03/2019 (No Known Allergies) Date Reviewed: 10/27/2018 Reviewed by: Shea gNo) MD Yandel - Fully Assessed Reason for Visit: Consult [502] Cmt: non-alchoholic fatty liver disease Primary Visit Diagnosis:Hepatic steatosis [K76.0] Other Visit Diagnoses:NAFLD (nonalcoholic fatty liver disease) [K76.0] Pediatric obesity due to excess calories without serious comorbidity, unspecified BMI [E66.09] Order(s):CERULOPLASMI N BLD [SQCERULO] Order #: [id number]. #:[id number] HEP REMOTE PANEL BL [SQHREMOP] Order #: [id number]. #:[id number] HGB A1C [VUJBW7E] Order #: [id number]. #:[id number] HEPATIC FUNCTION PNL [SQHFP] Order #: [id number] FUTURE Prescriptions as of 02/03/2019 Sig: ERGOCALCIFEROL [...] by JOHNNY ARANGO MD on 02/03/19 Normal [facility] Ceruloplasminon 02-03-2019 Ceruloplasmin 29 mg/dL Normal 16-45 [facility] Comment on above: Performed By: #### C ERULO, HBA1C, HREMOP ####[facility] [address] [place], [place] [phone] Hemoglobin A1con 02-03-2019 HbA1c (Bld) [Mass fraction] 4.9 % Normal 4.3-5.6 [facility] Comment on above: Result Comment: [place] Diabetes Association guidelines indicate that patients with HgbA1c in the range 5.7-6.4% are at increased risk for development of diabetes, and intervention by lifestyle modification may be beneficial. HgbA1c greater or equal to 6.5% is considered diagnostic of diabetes. Performed By: #### C ERULO, HBA1C, HREMOP ####[facility] [address] [place], [place] [phone] HbA1c (Bld) [Mass fraction] 94 mg/dL Normal [facility] Comment on above: Result Comment: eAG: (Estimated average glucose) is a calculated value from HgbA1c and is employee relations representative of the average blood glucose level in the last 2-3 month period. Performed By: #### C ERULO, HBA1C, HREMOP ####[facility] [address] [place], [place] [phone] Hepatic Functn Panelon 02-03 Albumin [Mass/Vol] 4.4 g/dL Normal 3.2-4.5 [facility] Comment on above: Performed By: #### H FP ####[facility], [place] [phone] ALP [Catalytic activity/Vol] 75 U/L Normal 45-87 [facility] Comment on above: Result Comment: Refe rence ranges were not locally established for this patient's age group. The normal values are based on the following source: Kira MP, Ethan SOTELO, et al. CLSI based transference of the CALIPER database of pediatric reference intervals from Burns to Gini, Ortho, Ana, and Siemens Clinical Chemistry Assays: Direct validation using reference samples from the CALIPER cohort. Clin Biochem. Performed By: #### H FP ####[address] [phone] ALT [Catalytic activity/Vol] 26 U/L Normal 7-38 [facility] Comment on above: Result Comment: (NOT E) Reference ranges for this patient's age group have not been established. These reference ranges reflect verified or established ranges for the adult population. Interpret these ranges wtih caution using clinical context and additional reference resources. Performed By: #### H FP ####[address] [phone] AST [Catalytic activity/Vol] 24 U/L Normal 13-35 [facility] Comment on above: Result Comment: (NOT E) Reference ranges for this patient's age group have not been established. These reference ranges reflect verified or established ranges for the adult population. Interpret these ranges with caution using clinical context and additional reference resources. Performed By: #### H FP ####[address] [phone] Bilirubin [Mass/Vol] 0.2 mg/dL Normal 0.2-1.3 [facility] Comment on above: Result Comment: (NOT E) Reference ranges for this patient's age group have not been established. These reference ranges reflect verified or established ranges for the adult population. Interpret these ranges with caution using the clinical context and additional reference resources. Performed By: #### H FP ####[address] [phone] Bilirubin,Conjugated <0.2 Normal <0.2 [facility] Comment on above: Result Comment: (NOT E) Reference ranges for this patient's age group have not been established. These reference ranges reflect verified or established ranges for the adult population. Interpret these ranges with caution using the clinical context and additional reference resources. Performed By: #### H FP ####[place] [id number] [place], [place] [phone] Protein [Mass/Vol] 7.8 g/dL Normal 6.3-8.0 [facility] Comment on above: Result Comment: (NOT E) [...] MK, Home I, Srinivasan M, et al. [place] [employer] Initiative on Reference Interval Database(CALIPER): pediatric reference intervals for an integrated clinical chemistry and immunoassay analyzer, Burns PARKING [employer] SIGNALER [id number]. Clin Biochem 2009;42:885-891. Performed By: #### H FP ####[address] [phone] Hepatitis Remote Panelon HBsAg Negative Normal Negative [facility] Comment on above: Performed By: #### C ERULO, HBA1C, HREMOP ####[address] [phone] Hep B Core Ab,Total Negative Normal Negative [facility] Comment on above: Performed By: #### C ERULO, HBA1C, HREMOP ####[address] [phone] Hepatitis C Ab IA Negative Normal Negative [facility] Comment on above: Performed By: #### C ERULO, HBA1C, HREMOP ####[address] [place], [place] [phone] HepB Surface Ab,Qual Negative Normal Negative [facility] Comment on above: Result Comment: NEGA TIVE Performed By: #### C ERULO, HBA1C, HREMOP ####[facility] [address] [place], [place] [phone] PROGRESSon 02-03-2019 PROGRESS HNO ID: [id number] Author: Татьяна Quiles Service: ? Author Type: [...] x 100-150 hakeem snacks daily is ok https://[employer]/ [email or web address]-ffcxrbo-jz acks [email or web address] [email or web address]-dpfiprc-wvdymm / 04/30 serving healthy fat: 1/2 oz nuts (2 TBSP) - dry roasted, lightly salted or no salt OR raw 1/4 avocado 14 large olives or 23 small olives 2. Supplements: Recommend vit D - 50,000 IU as was prescribed by Shea Thomson in October. Call [facility] about this, you [...] 2 months for attainment of goals. April Mccartney Art Fried is a 19 year old female, [...] February 03, 2019 TIME: 3:48 PM PAGER: [phone] Normal [facility] PROGRESS HNO ID: [id number] Author: Momo Coronado (Coord) Service: ? Author Type: Research Type: Progress Notes Filed: 02/03/2019 4:01 PM Note Text: DATE: February 03, 2019 TIME: 03:20 PM PT. NAME: April Fried [facility]#: [id number] IRB #: [id number] PROTOCOL: TARGET-ROJAS: 5-year Longitudinal Observational Study of Patients with Nonalcoholic Fatty Liver or Nonalcoholic Steatohepatitis Principle Can Carrier: Dr. Johnny mccartney [place]: Momo Coronado, (Pager [phone]) [facility] contact lens flashing puncher for study related questions: Ped. [place] (Momo Coronado, Research Crd - Pager [phone]) April Fried was seen today as standard of care visit with Dr. Mendieta in the Pediatric Gastroenterology Clinic. In addition,April Fried was consented and enrolled in the TARGET-ROJAS- study [id number]. System Sales Consultant and/or Research Coordinator explained the protocol to [...] standard of care visit. _ Tata Knowles [facility] [place] [facility] Normal [facility] PROGRESS HNO ID: [id number] Author: Johnny Mendieta Service: ? Author Type: Physician Type: Progress Notes Filed: 02/03/2019 4:33 PM Note Text: Metabolic Liver Clinic Initial Visit Chief Complaint: April Fried is a 19 year old female who presents today for a consultation of fatty liver disease, comorbidity management and lifestyle intervention at the request of Dr.Sophia Thomson. History obtained from: Mother and Patient. HPI: She was seen by Dr. Thomson for RUQ abdominal pain and had ultrasound as part of evaluation which showed hepatic steatosis and was referred to us for further management. Reasons for wanting to achieve a healthier lifestyle: Obesity and NAFLD. 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 Recently, her weight trend has been: Trending [...] surgery? no Diabetes: yes in maternal grandmother CAD/VT: no Early coronary disease in first degree [...] Abs Lymph 1.00 - 4.00 k/uL 2.76 Nassau% % 8.4 Abs Nassau <0.87 k/uL 0.70 Eosin% % 1.7 Abs [...] clinic, April Fried will meet with a grazing aide today. 2) Obesity: Yes 3) Hypertension: No [...] Metabolic Liver Clinic February 03, 2019 Normal [facility] CNPTOUTREACHon 12-10-[facility] (PG[facility] APRIL MIN ([id number]) 4 F Date Time Provider Department 12/10/18 SHEA THOMSON) [facility] During your visit today, we recorded the following information about you: Sen Whitenz 12/10/2018 3:32 PM Signed Called and spoke with mom (Sarah). Mom informed that US showed signs of NAFLD. Mom advised that MD would like for patient to follow up with Dr. Mendieta (specializes in FLD). Mom teaches this back but states that she will probably still keep appointment with Dr. Thomson for 12/15/18 and then follow up with [...] [K59.00] INVALID FOR* Encounter Status:Closed by SEN MENDOZA on 12/10/18 Normal [facility] PROGRESSon 12-10-2018 PROGRESS HNO ID: [id number] Author: Sen Mendoza Service: ? Author Type: ? Type: Progress Notes Filed: 12/10/2018 3:32 PM Note Text: Called and spoke with mom (Sarah). Mom informed that US showed signs of NAFLD. Mom advised that MD would like for patient to follow up with Dr. Mendieta (specializes in FLD). Mom teaches this back but states that she will probably still keep appointment with Dr. Thomson for 12/15/18 and then follow up with Gayatri after this. Also discussed with mom the benefits of a healthy diet and exercise. Mom teaches this back and states that she will talk with patient about diet and exercise. Mom thankful for call, no further questions for RN at this time. Normal [facility] Amylaseon 10-27-2018 Amylase [Catalytic activity/Vol] 56 U/L Normal 30-104 [facility] Comment on above: Result Comment: (NOT E) Reference ranges for this patient's age group have not been established. These reference ranges reflect verified or established ranges for the adult population. Interpret these ranges with caution using the clinical context and additional reference resources. Performed By: #### A MYL, CRP, LIPA, VITD, ENDOMY, GLIIGA, TGIGA #### [facility] [address] [place], [place] [phone] C-Reactive Proteinon 019 CRP [Mass/Vol] 0.3 mg/dL Normal <0.9 [facility] Comment on above: Performed By: #### A MYL, CRP, LIPA, VITD, ENDOMY, GLIIGA, TGIGA #### [facility] [address] [place], [place] [phone] CBC and Differentialon 10-27 Abs Baso <0.03 Normal <0.11 [facility] Comment on above: Performed By: #### A MYL, CRP, LIPA, VITD, ENDOMY, GLIIGA, TGIGA #### [place] [phone] Abs Nassau 0.70 k/uL Normal <0.87 [facility] Comment on above: Performed By: #### A MYL, CRP, LIPA, VITD, ENDOMY, GLIIGA, TGIGA #### [place] [phone] Abs Neut 4.75 k/uL Normal 1.45-7.50 [facility] Comment on above: Performed By: #### A MYL, CRP, LIPA, VITD, ENDOMY, GLIIGA, TGIGA #### [place] [phone] Absolute nRBC <0.01 Normal <0.01 [facility] Comment on above: Performed By: #### A MYL, CRP, LIPA, VITD, ENDOMY, GLIIGA, TGIGA #### [place] [phone] Basophils/100 WBC (Bld) 0.2 % Normal [facility] Comment on above: Performed By: #### A MYL, CRP, LIPA, VITD, ENDOMY, GLIIGA, TGIGA #### [place] [phone] DTYPE Auto Diff Normal [facility] Comment on above: Performed By: #### A MYL, CRP, LIPA, VITD, ENDOMY, GLIIGA, TGIGA #### [place] [phone] Eosinophils (Bld) [#/Vol] 0.14 10*3/uL Normal <0.46 [facility] Comment on above: Performed By: #### A MYL, CRP, LIPA, VITD, ENDOMY, GLIIGA, TGIGA #### [place] [phone] [place] [address] Eosinophils/100 WBC (Bld) 1.7 % Normal [facility] Comment on above: Performed By: #### A MYL, CRP, LIPA, VITD, ENDOMY, GLIIGA, TGIGA #### [place] [phone] [place] [address] Erythrocyte distribution width (RBC) [Ratio] 12.4 % Normal 11.5-15.0 [facility] Comment on above: Performed By: #### A MYL, CRP, LIPA, VITD, ENDOMY, GLIIGA, TGIGA #### [place] [address] Hematocrit (Bld) [Volume fraction] 38.5 % Normal 36.0-46.0 [facility] Comment on above: Performed By: #### A MYL, CRP, LIPA, VITD, ENDOMY, GLIIGA, TGIGA #### [place] [address] Hemoglobin (Bld) [Mass/Vol] 12.5 g/dL Normal 11.5-15.5 [facility] Comment on above: Performed By: #### A MYL, CRP, LIPA, VITD, ENDOMY, GLIIGA, TGIGA #### [place] [address] Lymphocytes (Bld) [#/Vol] 2.76 10*3/uL Normal 1.00-4.00 [facility] Comment on above: Performed By: #### A MYL, CRP, LIPA, VITD, ENDOMY, GLIIGA, TGIGA #### [place] [phone] [place] [address] Lymphocytes/100 WBC (Bld) 33.0 % Normal [facility] Comment on above: Performed By: #### A MYL, CRP, LIPA, VITD, ENDOMY, GLIIGA, TGIGA #### [place] [address] MCH (RBC) [Entitic mass] 27.8 pG Normal 26.0-34.0 [facility] Comment on above: Performed By: #### A MYL, CRP, LIPA, VITD, ENDOMY, GLIIGA, TGIGA #### [place] [address] MCHC (RBC) [Mass/Vol] 32.5 g/dL Normal 30.5-36.0 [facility] Comment on above: Performed By: #### A MYL, CRP, LIPA, VITD, ENDOMY, GLIIGA, TGIGA #### [place] [phone] MCV (RBC) [Entitic vol] 85.7 fL Normal 80.0-100.0 [facility] Comment on above: Performed By: #### A MYL, CRP, LIPA, VITD, ENDOMY, GLIIGA, TGIGA #### [place] [address] Monocytes/100 WBC (Bld) 8.4 % Normal [facility] Comment on above: Performed By: #### A MYL, CRP, LIPA, VITD, ENDOMY, GLIIGA, TGIGA #### [place] [address] Neutrophils/100 WBC (Bld) 56.7 % Normal [facility] Comment on above: Performed By: #### A MYL, CRP, LIPA, VITD, ENDOMY, GLIIGA, TGIGA #### [place] [address] NRBCs 0.0 /100 WBC Normal 0 [facility] Comment on above: Performed By: #### A MYL, CRP, LIPA, VITD, ENDOMY, GLIIGA, TGIGA #### [facility] [address] [place] [address] Platelet mean volume (Bld) [Entitic vol] 8.5 fL Low 9.0-12.7 [facility] Comment on above: Performed By: #### A MYL, CRP, LIPA, VITD, ENDOMY, GLIIGA, TGIGA #### [place] [address] [place] [address] Platelets (Bld) [#/Vol] 387 10*3/uL Normal 150-400 [facility] Comment on above: Performed By: #### A MYL, CRP, LIPA, VITD, ENDOMY, GLIIGA, TGIGA #### [place] [address] [place] [phone] RBC (Bld) [#/Vol] 4.49 10*6/uL Normal 3.90-5.20 [facility] Comment on above: Performed By: #### A MYL, CRP, LIPA, VITD, ENDOMY, GLIIGA, TGIGA #### [place] [address] [place] [phone] WBC (Bld) [#/Vol] 8.37 10*3/uL Normal 3.70-11.00 [facility] Comment on above: Performed By: #### A MYL, CRP, LIPA, VITD, ENDOMY, GLIIGA, TGIGA #### [place] [address] [place] [address] CNCOon 10-27-2018 CNCO Letter Text Normal [facility] CNOVon 10-27-2018 CNOV Office Visit (PGASAV ) APRIL MIN ([id number]) 4 F Date Time Provider Department 10/27/18 1:00 PM SHEA THOMSON) PGASAV During your visit today, we recorded the following information about you: Weight Height Last Period 107.5 kg 1.643 m 10/13/18 Shea Thomson MD, MD 10/27/2018 1:48 PM Signed Referring [...] labwork or ultrasounds were completed. Mostly just CONSTRUCTION TECH that they saw started medications. Bowel [...] 2.39) based on CDC (Girls, 2-20 Years) mjbqdw-smz-[id number] data using vitals from 10/27/2018.)(>99 %ile (Z= [...] Follow up in 6 weeks or sooner prchidi Thomson MD Pediatric Gastroenterology Staff [facility]'s CC: Maria Elena Lara, SHARMILA-C [address] [place] [address] Shea Thomson MD, MD 10/27/2018 1:28 PM Signed Labs today Stool sample - drop off at local hospital Ultrasound - at [facility] [place] - take pain three times per day as needed for pain Referring Provider: MARIA ELENA LARA [[id number]] Allergies As of Date: 10/27/2018 (No Known Allergies) Date Reviewed: 10/27/2018 Reviewed by: Shea Ngo) MD Yandel - Fully Assessed Reason for Visit: New Patient [172] Primary Visit Diagnosis:RUQ abdominal pain [R10.11] Other Visit Diagnoses:Nausea [R11.0] Constipation, unspecified constipation type [K59.00] Order(s):TSH BLD [SQTSH] Order #: [id number] FUTURE SED RATE WESTERGREN [SQWSR] Order #: [id number] FUTURE ENDOMYSIAL IGA AB [SQENDOMY] Order #: [id number] IGA BLD [SQIGA] Order #: [id number] FUTURE C-REACTIVE PROTEIN (CRP) [SQCRP] Order #: [id number] VITAMIN D 25 HYDROXY [SQVITD] Order #: [id number] COMP METABOLIC PANEL [SQCMP] Order #: [id number] FUTURE CBC + DIFF [SQCBCDIF] Order #: [id number] T4 FREE/FREE THYROX [SQFT4] Order #: [id number] FUTURE LIPASE BLD [SQLIPA] Order #: [id number] GLIADIN (DEAMIDATED) AB, IGA [SQGLIIGA] Order #: [id number] AMYLASE BLD [SQAMYL] Order #: [id number] TRANSGLUTAMINASE IGA [SQTGIGA] Order #: [id number] dicyclomine (BENTYL) 20 mg tabletTake 1 tablet [...] mouth once daily. Encounter Status:Closed by SHEA THOMSON MD on 10/27/18 Normal [facility] Comp Metabolic Panelon 10-27 Albumin [Mass/Vol] 4.5 g/dL Normal 3.2-4.5 [facility] Comment on above: Result Comment: Refe rence ranges were not locally established for this patient's age group. The normal values are based on the following source: Albumin (Gen. 2) (package insert v 10.0 [place]). [facility], [place], [place], June 2014. Performed By: #### F T4, WSR, IGA ####[facility] [address] [place], [place] [phone] ALP [Catalytic activity/Vol] 72 U/L Normal 50-117 [facility] Comment on above: Result Comment: Refe rence ranges were not locally established for this patient's age group. The normal values are based on the following source: Kira BECKWITH, Ethan AH, et al. CLSI based transference of the CALIPER database of pediatric reference intervals from Burns to Gini, Ortho, Ana, and Siemens Clinical Chemistry Assays: Direct validation using reference samples from the [place] cohort. Clin Biochem. Performed By: #### F T4, WSR, IGA ####[facility] [address], [place] [phone] ALT [Catalytic activity/Vol] 29 U/L Normal 7-38 [facility] Comment on above: Result Comment: (NOT E) Reference ranges for this patient's age group have not been established. These reference ranges reflect verified or established ranges for the adult population. Interpret these ranges wtih caution using clinical context and additional reference resources. Performed By: #### F T4 WSR, IGA ####[facility], [place] [phone] Anion gap [Moles/Vol] 13 mmol/L Normal 9-18 [facility] Comment on above: Result Comment: (NOT E) Reference ranges for this patient's age group have not been established. These reference ranges reflect verified or established ranges for the adult population. Interpret these ranges with caution using the clinical context and additional reference resources. Performed By: #### F Camryn WSR, IGA ####[place] [address] [place], [place] [phone] AST [Catalytic activity/Vol] 19 U/L Normal 13-35 [facility] Comment on above: Result Comment: (NOT E) Reference ranges for this patient's age group have not been established. These reference ranges reflect verified or established ranges for the adult population. Interpret these ranges with caution using clinical context and additional reference resources. Performed By: #### F Camryn WSBib, IGA ####[place] [address] [place], [place] [phone] Bilirubin [Mass/Vol] 0.2 mg/dL Normal 0.2-1.3 [facility] Comment on above: Result Comment: (NOT E) Reference ranges for this patient's age group have not been established. These reference ranges reflect verified or established ranges for the adult population. Interpret these ranges with caution using the clinical context and additional reference resources. Performed By: #### F Camryn WSR, IGA ####[place] [address] [address] [place], [place] [phone] Calcium [Mass/Vol] 9.7 mg/dL Normal 8.5-10.2 [facility] Comment on above: Result Comment: Refe rence ranges were not locally established for this patient's age group. The normal values are based on the following source: Calcium (Gen. 2) (package insert v3.0 [place]an). [facility], [place], [place], January 2013. Performed By: #### F Camryn WSR, IGA ####[address] [phone] Chloride [Moles/Vol] 103 mmol/L Normal 97-105 [facility] Comment on above: Result Comment: (NOT E) Reference ranges for this patient's age group have not been established. These reference ranges reflect verified or established ranges for the adult population. Interpret these ranges with caution using the clinical context and additional reference resources. Performed By: #### F T4, WSR, IGA ####[address] [phone] CO2 [Moles/Vol] 22 mmol/L Normal 22-30 [facility] Comment on above: Result Comment: (NOT E) Reference ranges for this patient's age group have not been established. These reference ranges reflect verified or established ranges for the adult population. Interpret these ranges with caution using the clinical context and additional reference resources. Performed By: #### F T4, WSR, IGA ####[address] [phone] Creatinine [Mass/Vol] 0.64 mg/dL Normal 0.58-0.96 [facility] Comment on above: Result Comment: Refe rence ranges for this patient's age group have not been established. These reference ranges reflect verified or established ranges for the adult population. Interpret these ranges with caution using the clinical context and additional reference resources. Performed By: #### F T4, WSR, IGA ####[address] [phone] GFR/1.73 sq M predicted among non-blacks MDRD (S/P/Bld) [Vol rate/Area] 0.65 mL/min/{1.73_m2} Normal [facility] Comment on above: Result Comment: eGFR [...] clinical interpretation. Performed By: #### F ANJUM Cowan IGA ####[facility], [place] [phone] Glucose [Mass/Vol] 108 mg/dL High 74-99 [facility] Comment on above: Result Comment: Refe rence ranges for this patient's age group have not been established. These reference ranges reflect verified or established ranges for the adult population. Interpret these ranges with caution using the clinical context and additional reference resources. The [place] Diabetes Association (ADA) provides guidance for cutoff [...] Standards of Medical Care in Diabetes 2016, [place] Diabetes Association. Diabetes Care. 2016.39(Suppl 1). Performed By: #### F ANJUM Cowan IGA ####[facility], [place] [phone] Potassium [Moles/Vol] 4.0 mmol/L Normal 3.7-5.1 [facility] Comment on above: Performed By: #### F ANJUM Cowan, IGA ####[facility] [address], [place] [phone] Protein [Mass/Vol] 7.8 g/dL Normal 6.3-8.0 [facility] Comment on above: Result Comment: Refe rence ranges for this patient's age group have not been established. These reference ranges reflect verified or established ranges for the adult population. Interpret these ranges with caution using the clinical context and additional reference resources. Performed By: #### F ANJUM Cowan, IGA ####[facility] [place], [place] [phone] Sodium [Moles/Vol] 138 mmol/L Normal 136-144 [facility] Comment on above: Result Comment: (NOT E) Reference ranges for this patient's age group have not been established. These reference ranges reflect verified or established ranges for the adult population. Interpret these ranges with caution using the clinical context and additional reference resources. Performed By: #### F T4, WSR, IGA ####[facility] [place], [place] [phone] Urea nitrogen [Mass/Vol] 14 mg/dL Normal 5-18 [facility] Comment on above: Result Comment: Refe rence ranges were not locally established for this patient's age group. The normal values are based on the following source: Urea/BUN (package insert v7.0 [place]an). [facility], [place], [place], March 2015. Performed By: #### F T4, WSR, IGA ####[facility] [place], [place] [phone] Endomysial IgA Abson 019 Endomysial IgA Abs <1:10 Normal <1:10 [facility] Comment on above: Result Comment: Refe rence Range: Negative < 1:10 Dilution IgA endomysial antibody is a highly sensitive and specific marker for celiac disease in patients with a normal IgA and on a normal diet. Levels reflect the adherence to gluten free diet. Performed By: #### A MYL, CRP, LIPA, VITD, ENDOMY, GLIIGA, TGIGA #### [facility] [address] [place], [place] [address] Free T4on 10-27-2018 Free T4 [Mass/Vol] 1.3 ng/dL Normal 0.8-1.5 [facility] Comment on above: Performed By: #### F T4, WSR, IGA ####[facility] [place], [place] [phone] Gliad Deamidated IgAon 10-27 Gliad IgA Ab 11 Units Normal <20 [facility] Comment on above: Result Comment: Nega tive : < 20 Units Weak Positive : 20 - 30 Units Moderate Pos to Strong Pos: >30 Units The following results were obtained with the [employer] QUANTA Lite Gliadin IgA MIKE. Gliadin IgA values obtained with different manufacturers' assay methods may not be used interchangeably. The magnitude of the reported IgA levels cannot be correlated to an endpoint titer. Performed By: #### A MYL, CRP, LIPA, VITD, ENDOMY, GLIIGA, TGIGA #### [facility] [address] [place], [place] [address] HISTORY PHYSICALon 9 HISTORY PHYSICAL HNO ID: [id number] Author: Shea Ngo) MD Yandel Service: ? [...] labwork or ultrasounds were completed. Mostly just CONSTRUCTION TECH that they saw started medications. Bowel [...] 2.39) based on CDC (Girls, 2-20 Years) owoqie-jiv-dzd data using vitals from 10/27/2018.)(>99 %ile (Z= [...] up in 6 weeks or sooner santi Thomson MD Pediatric Gastroenterology Staff [facility] CC: Maria Elena Lara, BELT SPLICER-C [address] [facility] [id number] Normal [facility] IgAon 10-27-2018 IgA [Mass/Vol] 321 mg/dL Normal 78-391 [facility] Comment on above: Performed By: #### F T4, WSR, IGA ####[facility] [address] [place], [place] [phone] Lipaseon 10-27-2018 Lipase [Catalytic activity/Vol] 20 U/L Normal 16-61 [facility] Comment on above: Result Comment: (NOT E) Reference ranges for this patient's age group have not been established. These reference ranges reflect verified or established ranges for the adult population. Interpret these ranges with caution using the clinical context and additional reference resources. Performed By: #### A MYL, CRP, LIPA, VITD, ENDOMY, GLIIGA, TGIGA #### [facility] [address] [place], [place] [address] Sed Rate Westergrenon 2018 Sed Rate Westergren 27 mm/hr High 0-20 [facility] Comment on above: Performed By: #### F T4, WSR, IGA ####[facility] [address] [place], [place] [phone] TSHon 10-27-2018 TSH Qn 3.470 uU/mL Normal 0.510-4.300 [facility] Comment on above: Result Comment: Refe rence ranges were not locally established for this patient's age group. The normal values are based on the following source: Kimberly Ferguson V. Reference Ranges for Adults and Children: Pre-analytical Considerations. Ana [employer] Performed By: #### F T4, WSR, IGA ####[facility] [address] [place], [place] [phone] Transglutaminase IgAon 10-27 Transglutaminase IgA 3 Units Normal <20 [facility] Comment on above: Result Comment: Nega tive : < 20 Units Weak Positive : 20 - 30 Units Moderate Pos to Strong Pos: >30 Units The following results were obtained with the El[employer] QUANTA Lite h-tTG IgA MIKE. h-tTG IgA values obtained with different manufacturers' assay methods may not be used interchangeably. The magnitude of the reported IgA levels cannot be correlated to an endpoint titer. Performed By: #### A MYL, CRP, LIPA, VITD, ENDOMY, GLIIGA, TGIGA ####[facility] [place], [place] [phone] Vitamin D 25 Hydroxyon 10-27 Vitamin D 25 Hydroxy 15.8 ng/mL Low 31.0-80.0 [facility] Comment on above: Result Comment: Clas sification of 25 [place] Vitamin D status: Insufficiency/Moderate Deficiency: < or = 30 ng/mL Sufficiency/Optimal Levels: 31 to 80 ng/mL Toxicity: > 100 ng/mL Test performed by chemiluminescent immunoassay. Performed By: #### A MYL, CRP, LIPA, VITD, ENDOMY, GLIIGA, TGIGA #### [facility] [address] [place], [place] [address] Message - General Officeon 0 08-07-2018 Message - General Office From: Alethea Chanel To: Alethea hCanel; Sent: 08/07/2018 10:45:02 EDT Subject: Patient left insurance cards Insurance cards were left in the office on visit 08/06/2018. Attempted to call both numbers listed on patients chart and couldnt get through nor leave a voicemail, mailed insurance card to patient. Pt dad called stating they revieved a voicemail. Contacted per at [phone] and advised of above. Normal [facility] Vital Signs Date Time Vital Sign Value Performing Clinician Facility 04-23-2024 10:17-0500 Body weight 99.7 kg Yony Brittany DO Work Phone: [facility] 04-23-2024 10:17-0500 Diastolic blood pressure 70 mm[Hg] Yony Brittany DO Work Phone: [facility] 04-23-2024 10:17-0500 Systolic blood pressure 120 mm[Hg] Yony Brittany DO Work Phone: [facility] 10-25-2022 10:17-0400 Body temperature 98.06 [degF] Jose Duran [facility] 10-25-2022 10:17-0400 Diastolic blood pressure 80 mm[Hg] Jose Roger [facility] 10-25-2022 10:17-0400 Heart rate 94 /min Jose Duran [facility] 10-25-2022 10:17-0400 Respiratory rate 18 /min Jose Roger [facility] 10-25-2022 10:17-0400 SaO2% (BldA) [Mass fraction] 99 % Jose Duran [facility] 10-25-2022 10:17-0400 Systolic blood pressure 124 mm[Hg] Jose Roger [facility] 12-07-2021 19:19-0400 Body temperature 98.24 [degF] Kaylinn Dokken [facility] 12-07-2021 19:19-0400 Diastolic blood pressure 92 mm[Hg] Kaylinn Dokken [facility] 12-07-2021 19:19-0400 Heart rate 114 /min Kaylinn Dokken [facility] 12-07-2021 19:19-0400 Respiratory rate 16 /min Kaylinn Dokken [facility] 12-07-2021 19:19-0400 SaO2% (BldA) [Mass fraction] 98 % Virginie Anthony [facility] 12-07-2021 19:19-0400 Systolic blood pressure 143 mm[Hg] Virginie Anthony [facility] 12-06-2021 07:58-0400 Body temperature 98.06 [degF] Jose Duran [facility] 12-06-2021 07:58-0400 Diastolic blood pressure 80 mm[Hg] Jose Duran [facility] 12-06-2021 07:58-0400 Heart rate 86 /min Jose Duran [facility] 12-06-2021 07:58-0400 Respiratory rate 16 /min Josecarley Duran [facility] 12-06-2021 07:58-0400 SaO2% (BldA) [Mass fraction] 100 % Josecarley Duran [facility] 12-06-2021 07:58-0400 Systolic blood pressure 121 mm[Hg] Jose Duran [facility] Encounters Encounter Date Encounter Type Care Provider Facility Start: 05-20-2024 End: 05-20-2024 Bamboo flowsheet Mimi REES Work Phone: [facility] Start: 05-20-2024 End: 05-28-2024 Bamboo flowsheet Mimi REES Work Phone: [facility] Start: 05-20-2024 End: 05-28-2024 Clinisync Result Encounter Mimi REES Work Phone: [facility] Unsolicited Start: 05-20-2024 End: 01-23-2025 External Result Encounter Mimi REES Work Phone: [facility] Unsolicited Start: 05-20-2024 End: 05-20-2024 ambulatory MIMI LANZA Not Available Start: 05-20-2024 End: 05-20-2024 Patient encounter procedure Mimi REES Work Phone: [facility] Start: 05-20-2024 End: 05-20-2024 Periodic preventive med est patient 18-39 yrs Mimi REES Work Phone: [facility] Comment on above: Well woman exam with routine gynecological exam; Second trimester ; 19 weeks gestation of ; Screening, , for anatomic survey; Folliculitis Start: 05-18-2024 End: 05-19-2024 Clinisync Result Encounter [...] 03-12-2024 End: 03-12-2024 flow sheet Sarah Mckeon BELT SPLICER Work Phone: [facility] Comment on above: GA: 9w1d Start: 10-31-2022 End: 11-01-2022 ambulatory Ivelisse Leger [facility] Start: 10-31-2022 End: 10-31-2022 Patient encounter procedure Ivelisse Leger [facility] Start: 10-25-2022 End: 10-25-2022 Emergency department patient visit Jose Duran [facility] Start: 10-25-2022 End: 10-25-2022 Emergency department patient visit Jose Duran [facility] Start: 12-09-2021 End: 12-10-2021 ambulatory MEGAN Hernandez QUIQUECLAUDIO Facility:[facility] Start: 12-07-2021 End: 12-07-2021 Emergency department patient visit Lashondank Cedrick Raj [facility] Start: 12-07-2021 End: 12-07-2021 Emergency department patient visit Sdcarleychidi Anthony [facility] Start: 12-06-2021 End: 12-06-2021 Emergency department patient visit Jose Duran Facility[facility] Start: 12-06-2021 End: 12-06-2021 Emergency department patient visit Jose Duran [facility] Start: 05-08-2021 End: 08-06-2021 Patient encounter procedure Kwasi Pop III [facility] Start: 08-28-2018 Patient encounter procedure Maria Elena Lara Facility:CD:[id number] Start: 08-06-2018 End: 08-07-2018 Patient encounter procedure Maria Elena Lara Facility:CD:[id number] Procedures Date Procedure Procedure Detail Performing Clinician Start: 05-20-2024 RECURRENT VAGINITIS (HTRX) Mimi REES Work Phone: Start: 05-20-2024 Urnls dip stick/tabl et rgnt non-auto w/o micrscp Mimi REES Work Phone: Start: 05-20-2024 IGP,APTIMA HPV,AGE GDLN Mimi REES Work Phone: Start: 05-18-2024 AFP, SERUM, OPEN SPI NA BIFIDA Yony Brittany DO Work Phone: Start: 04-23-2024 Urnls dip stick/tabl et rgnt non-auto w/o micrscp Yony Brittany DO Work Phone: Start: 04-13-2024 MLR HEMOGLOBIN A1C Core y Brittany DO Work Phone: Start: 04-29-2003 bilateral tubes in ears Kwasi Pop III Plan of Treatment Date Care Activity Detail Author Start: 06-18-2024 End: 06-18-2024 Patient encounter procedure 06/18/2024 1:30 PM EST Routine [facility] [address] [place] [address] Mimi Lanza PA [address] [place] [address] [facility] Start: 06-02-2024 End: 06-02-2024 Professional / ancillary services management 06/02/2024 2:30 PM EST Ancillary Procedure [facility] [address] [place] [id number] [facility] Start: 05-20-2024 End: 07-18-2024 Alpha fetoprotein, maternal Alpha fetoprotein, maternal Lab Routine Screening, , for anatomic survey Expected: 05/20/2024 (Approximate), Expires: 07/18/2024 [facility] Comment on above: Expected: 05/20/2024 (Approximate), Expires: 07/18/2024 Start: 05-20-2024 End: 05-20-2025 US for US OB 14+ weeks anatomy scan Imaging Routine Screening, , for anatomic survey Expected: 05/20/2024, Expires: 05/20/2025 [facility] Comment on above: Expected: 05/20/2024 , Expires: 05/20/2025 Start: 05-20-2024 End: 05-20-2024 Patient encounter procedure 05/20/2024 10:30 AM EST Routine [facility] [address] [facility] [place] [phone] Mimi Lanza PA [address] [place], [place] [id number] [facility] Start: 04-23-2024 End: 05-24-2024 Alpha fetoprotein, maternal Alpha fetoprotein, maternal Lab Routine 15 weeks gestation of Expected: 04/23/2024 (Approximate), Expires: 05/24/2024 [facility] Work Phone: Comment on above: Expected: 04/23/2024 (Approximate), Expires: 05/24/2024 Start: 04-23-2024 End: 04-23-2024 Patient encounter procedure 04/23/2024 9:30 AM EST Routine [facility] [address] [facility] [place] [phone] Yony Soto DO [address] [place] [address] [facility] Start: 04-15-2024 End: 04-15-2024 Professional / ancillary services management 04/15/2024 11:00 AM EST Ancillary Procedure [facility] [address] [place] [phone] [facility] Start: 04-11-2024 End: 03-12-2025 [...] gestation of Expected: 04/11/2024 (Approximate), Expires: 03/12/2025 [facility] Comment on above: Expected: 04/11/2024 [...] gestation of Expected: 04/11/2024 (Approximate), Expires: 03/12/2025 [facility] Comment on above: Expected: 04/11/2024 (Approximate), Expires: 03/12/2025 Start: 04-11-2024 End: 03-12-2025 Hemoglobin A1c/Hemoglobin.total in Blood Hemoglobin A1c Lab Routine Encounter for supervision of normal first in first trimester 9 weeks gestation of Expected: 04/11/2024 (Approximate), Expires: 03/12/2025 [facility] Comment on above: Expected: 04/11/2024 (Approximate), Expires: 03/12/2025 Start: 04-11-2024 End: 03-12-2025 Hepatitis B virus surface Ag [Presence] in Serum or Plasma by Immunoassay Hepatitis B surface Ag Lab Routine Encounter for supervision of normal first in first trimester 9 weeks gestation of Expected: 04/11/2024 (Approximate), Expires: 03/12/2025 [facility] Comment on above: Expected: 04/11/2024 (Approximate), Expires: 03/12/2025 Start: 04-11-2024 End: 03-12-2025 HIV-1/HIV-2 antigen/antibody combination immunoassay HIV-1 and HIV-2 antibodies Lab Routine Encounter for supervision of normal first in first trimester 9 weeks gestation of Expected: 04/11/2024 (Approximate), Expires: 03/12/2025 [facility] Comment on above: Expected: 04/11/2024 (Approximate), Expires: 03/12/2025 Start: 04-11-2024 End: 03-12-2025 Reagin Ab [Presence] in Serum by RPR RPR Lab Routine Encounter for supervision of normal first in first trimester 9 weeks gestation of Expected: 04/11/2024 (Approximate), Expires: 03/12/2025 [facility] Comment on above: Expected: 04/11/2024 (Approximate), Expires: 03/12/2025 Start: 04-11-2024 End: 03-12-2025 Rubella IgG Rubella IgG Lab Routine Encounter for supervision of normal first in first trimester 9 weeks gestation of Expected: 04/11/2024 (Approximate), Expires: 03/12/2025 [facility] Comment on above: Expected: 04/11/2024 (Approximate), Expires: 03/12/2025 Start: 04-02-2024 End: 04-02-2024 ambulatory 04/02/2024 1:40 PM EST Initial [facility] [address] [address] Sarah Mckeon NP [address] [place] [address] [facility] Start: 03-23-2024 End: 03-23-2024 Professional / ancillary services management 03/23/2024 4:00 PM EST Ancillary Procedure [facility] [address] [address] [facility] Cytology Cervical or vaginal smear or scraping study Pap Smear Pathology and Cytology Routine Well woman exam with routine gynecological exam Ordered: 05/20/2024 [facility] Work Phone: Comment on above: Ordered: 05/20/2024 Immunizations Immunization Date Immunization Notes Care Provider Fa cilidu 04-17-2021 meningococcal B vaccine, fully recombinant Jose Duran [facility] 02-24-2021 meningococcal ACWY vaccine, unspecified formulation Jose Duran [facility] Comment on above: Result Comment: 2021: VFC STOCK USED 02-24-2021 meningococcal B vaccine, fully recombinant Jose Roger [facility] Comment on above: Result Comment: 2021: VFC STOCK BORROWED 11-12-2016 hepatitis A vaccine, adult dosage Kwasi Pop III [facility] 11-12-2016 HPV, unspecified formulation Kwasi Pop III [facility] 12-16-2015 hepatitis A vaccine, adult dosage Kwasi Pop III [facility] 12-16-2015 HPV, unspecified formulation Kwsai Pop III [facility] 12-16-2015 meningococcal ACWY vaccine, unspecified formulation Kwasi Pop III [facility] 12-16-2015 tetanus and diphther ia toxoids, adsorbed, preservative free, for adult use (2 Lf of tetanus toxoid and 2 Lf of diphtheria toxoid) Kwasi Pop III [facility] 12-31-2006 diphtheria, tetanus toxoids and acellular pertussis vaccine Jose Duran [facility] 12-31-2006 measles, mumps and rubella virus vaccine Kwasi Pop III [facility] 12-31-2006 poliovirus vaccine, unspecified formulation [facility] III [facility] 12-31-2006 tetanus toxoid, reduced diphtheria toxoid, and acellular pertussis vaccine, adsorbed [employer] III [facility] 01-17-2004 influenza virus vaccine, unspecified formulation Jose Druan [facility] 01-17-2004 pneumococcal conjuga te vaccine, 13 valent Kwasi Pop III [facility] 08-18-2003 DTaP, unspecified formulation Jose Duran [facility] 08-18-2003 haemophilus influenz ae type b vaccine, HbOC conjugate [employer] III [facility] 04-27-2003 DTaP, unspecified formulation Jose Duran [facility] 04-27-2003 haemophilus influenz ae type b vaccine, HbOC conjugate [facility] III [facility] 04-27-2003 hepatitis B vaccine, adult dosage Kwasi Pop III [facility] 04-27-2003 influenza virus vaccine, unspecified formulation Jose Duran [facility] 04-27-2003 pneumococcal conjuga te vaccine, 13 valent Kwasi Pop III [facility] 04-27-2003 poliovirus vaccine, unspecified formulation Kwasi Pop III [facility] 04-27-2003 tetanus toxoid, reduced diphtheria toxoid, and acellular pertussis vaccine, adsorbed Kwasi Pop III [facility] 01-29-2003 DTaP, unspecified formulation Josecarley Duran [facility] 01-29-2003 haemophilus influenz ae type b vaccine, HbOC conjugate Kwasi Pop III [facility] 01-29-2003 hepatitis B vaccine, adult dosage Kwasi Pop III [facility] 01-29-2003 measles, mumps and rubella virus vaccine Kwasi Pop III [facility] 01-29-2003 poliovirus vaccine, unspecified formulation Kwasi Pop III [facility] 01-29-2003 tetanus toxoid, reduced diphtheria toxoid, and acellular pertussis vaccine, adsorbed Kwasi Pop III [facility] 01-29-2003 varicella virus vaccine Kwasi Pop III [facility] 2002 DTaP, unspecified formulation Jose Duran [facility] 2002 haemophilus influenz ae type b vaccine, HbOC conjugate Kwasi Pop III [facility] 2002 hepatitis B vaccine, adult dosage Kwasi Pop III [facility] 2002 pneumococcal conjuga te vaccine, 13 valent Kwasi Pop III [facility] 2002 poliovirus vaccine, unspecified formulation Kwasi Pop III [facility] 2002 tetanus toxoid, reduced diphtheria toxoid, and acellular pertussis vaccine, adsorbed Kwasi Pop III [facility] 2002 hepatitis B vaccine, adult dosage Kwasimonty Pop III [facility] NEGATED: Highlighted row has not occurred!08-28-2018 influenza virus vaccine, unspecified formulation Kwasimonty Pop III [facility] Payers Date Payer Category Payer Medicaid [place]ICA[place] [id number] 2022 Unknown [id number] 2021 Unknown [id number] 2018 Unknown [id number] 2002 Unknown [id number] 2002 Unknown [id number] 2002 Unknown [id number] 2002 Unknown [id number] 2002 Unknown [id number] 2002 Unknown [id number] 2002 Unknown [id number] 1978 Unknown [id number] 1978 Unknown [id number] Social History Date Type Detail Facility Start: 06-15-2021 End: 03-12-2024 Tobacco smoking status Never smoked tobacco (finding) [facility] Comment on above: denies Denies Tobacco smoking status Never [facility] Comment on above: denies Denies Start: 03-12-2024 Sex Assigned At Female F [facility] Start: 03-12-2024 Tobacco use and exposure Smokeless [...] Assessment Result Facility 10-25-2022 Functional Status N/A [facility] 12-07-2021 Functional Status N/A [facility] 12-06-2021 Functional Status N/A [facility] Clinical Notes 07-05-2021 to 05-20-2024 Mimi Lanza, CABRERA - 05/20/2024 10:30 AM Jorje Hernandez, MAILROOM ASSOCIATE - 04/23/2024 9:30 AM Marisa Eden, MAILROOM ASSOCIATE - 03/12/2024 9:30 AM EST Note Date & Type Note Facility 05-20-2024 History of Present illness Narrative Reason for Appointment: Patient ID: April Puente is a 24 y.o. female who presents for Routine Visit Patient presents today for Annual Exam. and Return OB appointment. MEDICATIONS Current Outpatient Medications [...] No family history on file. SURGICAL HISTORY No past surgical history on file. REVIEW OF SYSTEMS Review of Systems: Review of Systems Constitutional: Negative. HENT: Negative. Eyes: Negative. Respiratory: Negative. Cardiovascular: Negative. Gastrointestinal: Negative. Genitourinary: Negative. Musculoskeletal: Negative. Skin: Negative. Neurological: Negative. All other systems reviewed and are negative. Hematological: Negative. Endocrine: Negative. Allergic/Immunologic: Negative. OBJECTIVE Objective: Physical Exam Constitutional: Appearance: Normal appearance. She is well-developed. Genitourinary: Vulva normal. Right Adnexa: not tender and no mass present. Left Adnexa: not tender and no mass present. No cervical discharge. Breasts: Breasts are soft. Right: Normal. Left: Normal. HENT: Head: Normocephalic. Nose: Nose normal. Mouth/Throat: Mouth: Mucous membranes are moist. Cardiovascular: Rate and Rhythm: Normal rate and regular rhythm. Pulmonary: Effort: Pulmonary effort is normal. Breath sounds: Normal breath sounds. Abdominal: General: Bowel sounds are normal. There is no distension. Palpations: Abdomen is soft. Tenderness: There is no abdominal tenderness. There is no guarding or rebound. Musculoskeletal: General: No swelling. Normal range of motion. Cervical back: Normal range of motion. Right lower leg: No edema. Left lower leg: No edema. Neurological: General: No focal deficit present. Mental Status: She is alert and oriented to person, place, and time. Skin: General: Skin is warm and dry. Psychiatric: Mood and Affect: Mood normal. Behavior: Behavior normal. Vitals and nursing note reviewed. Exam conducted with a expander machine operator present. Vitals: Estimated body mass index is 38.58 kg/m as calculated from the following: Height as of 08/22/18: 5' 6 . Weight as of 08/22/18: 239 lb. BP: Patient's last menstrual period was 01/08/2024. ASSESSMENT & PLAN ICD-10-CM 1. Well woman exam with routine gynecological exam Z01.419 Pap Smear 2. Second trimester Z34.92 POCT urinalysis dipstick manually resulted 3. 19 weeks gestation of Z3A.19 4. Screening, , for anatomic survey Z36.89 US OB 14+ weeks anatomy scan Alpha fetoprotein, maternal Alpha fetoprotein, maternal Return OB/Annual Exam: Patient presents today for a annual exam/routine obstetrics appointment. Patient is currently 19w0d . Patient states she is doing well but has complaints of nausea in the morning. Pap and cultures was obtained without difficulty and patient was given orders for anatomy scan and msAFP to be obtained. Patient does notice an oily glad under breast we will have her start antibiotic and antibiotic ointment Orders Placed This Encounter Procedures US OB 14+ weeks anatomy scan Alpha fetoprotein, maternal POCT urinalysis dipstick manually resulted Follow Up: Patient is to schedule annual exam for next year and return to office in 4 weeks for OB appointment. Documented by Roseanna Kaiser LPN on behalf of: CABRERA Pérez documented in this encounter [facility] 04-23-2024 History of Present illness Narrative Reason [...] nursing note reviewed. Exam conducted with a expander machine operator present. Vitals: Estimated body mass [...] or undercooked meat, and stay away from [facility]. Patient has been consulted regarding any [...] Yony Soto DO documented in this encounter [facility] 03-12-2024 History of Present illness Narrative Subjective [...] will give to patient at dating US, [facility] STILWELL/Dr. Bucio Daily vitamins OTC NatureMade PNV w/DHA & folic acid First trimester screening and second trimester screening discussed. Wants Genetic and Chromosomal Testing documented in this encounter [facility] 10-31-2022 Evaluation + Plan note Diagnostic Tests PendingFSH and LH 10/31/22Insulin Level Total 10/31/22Testosterone Level Total 10/31/22DHEAS 10/31/22 [facility] 10-25-2022 Evaluation + Plan note Extrac nohelia from: Title:ED Note Author:Carlos Han PA-C te:10/25/22 Hand contusion (S60.229A: Co ntusion of unspecified hand, initial encounter) Orders: XR Hand 3+ Views Right Future Appointments Appointment Date:10/31/2022 09:00:00 AM Scheduled Provider: Location:.[facility] Appointment Type:US Abdominal/Pelvis (FT) Future Scheduled Tests Radiology* US Pelvis Non-OB Complete 10/31/22 [facility]06-29-2023 Hospital Discharge instructions Patient Education 10/25/2022 11:18:50 [...] An elastic wrap to support your hand. Opri-ezo-hvjnvri medicines to control pain. Follow these instructions [...] sitting or lying down. General instructions Take hmda-hpp-mwyaovf and prescription medicines only as told by [...] Document Reviewed: 08/03/2021 Elsevier Patient Education 2022 [employer] Follow Up Care 10/25/2022 10:12:59 With:Kathy Kraus Address: [address] [place] [address] [phone] Business (1) When:10/28/2022 11:08:00 [facility]08-11-2022 Hospital Discharge instructions Patient Education 12/07/2021 19:56:20 Cellulitis, Adult, Rame-qr-Vxyp Cellulitis, Adult Cellulitis is a skin infection. [...] Follow these instructions at home: Medicines Take tyop-ukj-eicwybt and prescription medicines only as told by [...] 10/01/2008 Document Revised: 09/04/2018 Document Reviewed: 09/04/2018 [employer] Patient Education 2020 [employer] Follow Up Care 12/07/2021 19:18:58 With:Kathy Kraus Address: [address] [place] [address] [phone] Business (1) When:12/10/2021 19:43:43 Comments:Take the antibiotics as prescribed you have completed the course. Please follow-up with your primary care doctor next 2 to 3 days. You can take the naproxen every 12 hours as needed for pain you can also take the Electra every 6 hours as needed for pain. Please return the ED for any new or worsening s ymptoms. [facility]08-11-2022 Evaluation + Plan noteExtracted from: Title:ED Note [...] Metabolic Panel 06/15/21 * Mononucleosis Screen 04/13/21 [facility]08-10-2022 Evaluation + Plan noteExtracted from: Title:ED Note Author:Carlos Han PA-C te:8/10/22 Otitis externa (H60.90: Unsp ecified otitis externa, unspecified ear) Orders: ciprofloxacin-dexamethasone otic, 4 drop(s), Ear-Right, BID for 7 day(s), 10 mL, Refill(s) 0, [facility]/pharmacy #[id number], 168, cm, 12/06/21 8:00:00 EDT, Height/Length [...] Metabolic Panel 06/15/21 * Mononucleosis Screen 04/13/21 [facility]08-10-2022 Hospital Discharge instructions Patient Education 12/06/2021 08:13:26 [...] antibiotic even if your condition improves. Take dmxw-bgy-xwxxlml and prescription medicines only as told by [...] 04/15/2006 Document Revised: 09/19/2018 Document Reviewed: 09/19/2018 [employer] Patient Education 2020 [employer] Follow Up Care 12/06/2021 07:57:14 With:Kathy Kraus Address: [address] [place] [address] [phone] Business (1) When:12/09/2021 08:05:03 [facility]03-09-2022 Evaluation + Plan note Future Scheduled Tests [...] Metabolic Panel 06/15/21 * Mononucleosis Screen [facility]/13/21 [facility] Diagnosis Encounter for supervision of normal first in first trimester 9 weeks gestation of [facility] Diagnosis 15 weeks gestation of Second trimester state, incidental [facility]* Diagnosis Well woman exam with routine gynecological exam Routine gynecological examination Second trimester state, incidental 19 weeks gestation of Screening, , for anatomic survey Encounter for anatomic survey Folliculitis Other specified disease of hair and hair follicles [facility] Narrative No data available for this section [facility] No data available for this section [facility] No data available for this section [facility] Summary Purpose Family History No Family History Records FoundNo Family History Records FoundNo Family History Records FoundNo Family History Records Found Advance Directives No Advanced Directives Records FoundNo Advanced Directives Records FoundNo Advanced Directives Records FoundNo Advanced Directives Records Found Additional Source Comments INFORMATION SOURCE (unrecogn ized section and content) DATE CREATED AUTHOR 08/08/2018 [facility] DATE CREATED AUTHOR AUTHOR'S ORGANIZ ATION 02/10/2019 [facility] DATE CREATED AUTHOR AUTHOR'S ORGANIZ ATION 11/01/2022 [facility] DATE CREATED AUTHOR AUTHOR'S MELISSA ATION 05/22/2024 [facility] EPIC Care Team (unrecognized sect ion and content) Personnel Name: Kathy Kraus NP Address: [address] [place], [place] [id number] [address] Personnel Name: Kathy Kraus NP Address: [address] [place] [address] Personnel Name: Kathy Kraus NP Address: Address: [address] [place] [address] Personnel Name: Kathy Kraus NP Address: Address: [address] [place] [address] Reason for Visit (unrecogniz ed section and [...] BE BASED ON THE PRIMARY CLINICAL RECORDS. [employer] provides no warranty or guarantee of the accuracy or completeness of information in this document.
--- NOTE | 2024-06-10 12:52 | US_ITS ---
[address] [address] Patient Name: ENRICO CASTILLO MRN: [id number] date: 2000 Sex: F Assigned Patient Location: ER Current Patient Location: ER Accession/Order Number: [id number] Exam Date: 06/10/2024 13:30 Report Date: 06/10/2024 13:54 At the request of: YUAN HOPSON Procedure: US OB limited EXAMINATION: US OB limited HISTORY: Pelvic pain/cramping COMPARISON: No relevant comparison available. FINDINGS: position: Breech presentation, longitudinal lie Heart rate: 154 bpm Placenta: Posterior. No intraplacental or retroplacental echogenic abnormality Clinical age: 22 weeks 3 days Clinical SAI: 10/11/2024 US/US OB limited IMPRESSION: No acute abnormality Electronically authenticated by: REMI WARREN Date: 06/10/2024 13:54
[2024-06-10 12:56] LABS: Bilirubin Urine NEGATIVE (NEGATIVE); Blood Urine NEGATIVE (NEGATIVE); Clarity Urine CLEAR (CLEAR); Color Urine LT. YELLOW (YELLOW); Glucose Urine UA NEGATIVE (NEGATIVE); Ketones Urine NEGATIVE (NEGATIVE); Leukocyte Esterase Urine NEGATIVE (NEGATIVE); Nitrite Urine NEGATIVE (NEGATIVE); Protein Urine NEGATIVE (NEG/TRACE); Specific Gravity Urine <=1.005 (1.005-1.025); Urobilinogen Urine 0.2 EU/dL (0.2-1.0); pH Urine 5.5 (5.0-9.0)
[2024-06-10 13:01] LABS: Urine Microscopic Indicated NO
--- NOTE | 2024-06-10 13:05 | ED.GENADUL1 ---
HPI HPI - General Adult General Chief complaint: Abdominal Pain Stated complaint: 22 WEEKS PREG CRAMPING, MIGRAINE Time Seen by Provider: 06/10/24 12:04 Source: patient Mode of arrival: walk-in History of Present Illness HPI narrative: Patient presents to ED complaining of headache nausea vomiting and overall not feeling well. Patient states she has had a migraine-like headache for the past few days. She has been taking Tylenol but has not been helping. She has been trying to eat and drink fluids but she has had some vomiting as. She claims that she has had lower abdominal cramping especially before having a bowel movement. She also has some vaginal pressure and lower abdominal cramping. She is 22 weeks . She did call her OB and they told her to come into the ER for further evaluation. Patient denies any vaginal bleeding or gush of fluid. No fever. Patient denies any cough or chest pain. She does not know of any sick contacts. No pain with urination. Patient states she has been feeling baby move. No other complaints at this time Related Data Previous Rx's ?Medication ?Instructions ?Recorded ondansetron 4 mg disintegrating 4 mg PO DAILY PRN nausea and 06/10/24 tablet vomiting #15 tabs Allergies Allergy/AdvReac Type Severity Reaction Status Date / Time No Known Drug Allergies Allergy Verified 06/10/24 12:10 Opioid HPI Opioid Management Most Recent Opioid Data: Urine Cannabinoids Positive (.) A 04/13/24 11:06 04/13/24 Ur Phencyclidine Scrn Negative (NEGATIVE) 04/13/24 11:06 04/13/24 Review of Systems ROS Status of ROS 10 or more systems reviewed and unremarkable except as noted in history and below PFSH PFSH Social History Little interest or pleasure in doing things: not at all Feeling down, depressed, or hopeless: not at all Exam Narrative Exam Narrative: Time Seen: [] Vital Signs: [Per nurse's notes.] General: [Alert] Skin: [Warm, dry, no rash.] Head: [Normocephalic, atraumatic.] Neck: [Supple, trachea midline.] Eye: [Pupils are equal, round and reactive to light, extraocular movements are intact, normal conjunctiva.] Ears, nose, mouth and throat: oral mucosa moist. Cardiovascular: [Regular rate and rhythm, no murmur.] Respiratory: [Lungs are clear to auscultation, respirations are non-labored, breath sounds are equal.] Chest wall: [No tenderness, no deformity.] Gastrointestinal: [Soft, nontender, non distended, normal bowel sounds.] MSK: 5 out of 5 muscle strength x 4 extremities no calf pain or edema Lymphatics: [No lymphadenopathy.] Psychiatric: [Cooperative, appropriate mood & affect.] Neurological: [Alert and oriented to person, place, time, and situation, no focal neurological deficit observed.] Constitutional Vital Signs, click to edit/add: Last Vital Signs Temp 98 F 06/10/24 12:11 Pulse 94 H 06/10/24 12:11 Resp 16 06/10/24 12:11 BP 131/69 06/10/24 12:11 Pulse Ox 99 06/10/24 12:11 O2 Del Method Room Air 06/10/24 12:11 Course Vital Signs Vital signs: Vital Signs Temperature 98 F 06/10/24 12:11 Pulse Rate 94 H 06/10/24 12:11 Respiratory Rate 16 06/10/24 12:11 Blood Pressure 131/69 06/10/24 12:11 Pulse Oximetry 99 06/10/24 12:11 Oxygen Delivery Method Room Air 06/10/24 12:11 Temperature 98 F 06/10/24 12:11 Pulse Rate 94 H 06/10/24 12:11 Respiratory Rate 16 06/10/24 12:11 Blood Pressure 131/69 06/10/24 12:11 Pulse Oximetry 99 06/10/24 12:11 Oxygen Delivery Method Room Air 06/10/24 12:11 Medical Decision Making MDM Narrative Medical decision making narrative: Upon further evaluation of the patient she said yesterday her migraine started and then her pain was around her bellybutton and migrating to the right lower quadrant. At first she told me it was just cramping before bowel movement but when talking to her more she said the pain was by her bellybutton and right lower quadrant and will come and go and stabbing waves. Patient does have a white count of almost 15. I was then concerned that she could have appendicitis. Patient states her mother got her appendix out a few years ago but she still has hers. I spoke to Dr. Soto and he agreed at this time with a CT scan bell. I spoke to the patient about it and she agreed. I was concerned on my exam as she had pain with mild rebound pain as well. CT scan came back without any acute appendicitis. Obstructive uropathy most likely from the . Normal creatinine normal urine no UTI. At this time this may be a gastroenteritis or viral syndrome which has been given her headache and abdominal pain and elevated white count however she was given strict instructions to return if worsening pain nausea vomiting or concerns. Follow-up with Dr. Soto as scheduled. Patient is comfortable with care plan for home she is feeling better after Zofran and fluids. Differential Diagnosis Differential Diagnosis: Gastroenteritis acute appendicitis UTI viral syndrome Lab Data Lab results reviewed: Yes I reviewed the patient's lab results Labs: Lab Results 06/10/24 06/10/24 06/10/24 Range/Units 12:05 13:25 13:30 WBC 14.6 H (4.0-11.0) 10^3/uL RBC 3.98 L (4.20-5.40) 10^6/uL Hgb 12.4 (12.0-16.0) g/dL Hct 35.9 L (36.0-48.0) % MCV 90.2 (81.0-99.0) fL MCH 31.2 (26.7-34.0) pg MCHC 34.5 (29.9-35.2) g/dL RDW 12.4 (11.0-15.0) % Plt Count 341 (150-450) 10^3/uL MPV 8.6 L (9.5-13.5) fL Neut % (Auto) 82.5 H (43.0-75.0) % Lymph % (Auto) 11.5 L (20.5-60.0) % Pershing % (Auto) 5.1 (1.7-12.0) % Eos % (Auto) 0.4 L (0.9-7.0) % Baso % (Auto) 0.1 L (0.2-2.0) % Neut # (Auto) 12.1 H (1.4-6.5) 10^3/uL Lymph # (Auto) 1.7 (1.2-3.8) 10^3/uL Pershing # (Auto) 0.7 (0.3-0.8) 10^3/uL Eos # (Auto) 0.1 (0.0-0.7) 10^3/uL Baso # (Auto) 0.0 (0.0-0.1) 10^3/uL Abs Immat Gran (auto) 0.06 H (0.00-0.03) 10^3/uL Imm/Tot Granulo (auto) 0.4 (0.0-0.5) % Sodium 138 (136-145) mmol/L Potassium 3.9 (3.5-5.1) mmol/L Chloride 103 (98-107) mmol/L Carbon Dioxide 21.8 (21.0-32.0) mmol/L Anion Gap 17.1 BUN 7.0 (7.0-18.0) mg/dL Creatinine 0.70 (0.55-1.02) mg/dL Est GFR ( Amer) >60 (>=60 mL/min/1.73m^2) Est GFR (Non-Af Amer) >60 (>=60 mL/min/1.73m^2) BUN/Creatinine Ratio 10.0 Glucose 85 (74-106) mg/dL Calcium 9.3 (8.5-10.1) mg/dL Total Bilirubin 0.2 (0.2-1.0) mg/dL AST 9 L (15-37) U/L ALT 14 (14-59) U/L Alkaline Phosphatase 42 L (46-116) U/L Total Protein 7.5 (6.4-8.2) g/dL Albumin 3.0 L (3.4-5.0) g/dL Globulin 4.5 g/dL Albumin/Globulin Ratio 0.7 Urine Color Lt. yellow (YELLOW) Urine Clarity Clear (CLEAR) Urine pH 5.5 (5.0-9.0) Ur Specific [place] <=1.005 A (1.005-1.025) Urine Protein Negative (NEG/TRACE) mg/dL Urine Glucose (UA) Negative (NEGATIVE) mg/dL Urine Ketones Negative (NEGATIVE) mg/dL Urine Occult Blood Negative (NEGATIVE) Urine Nitrite Negative (NEGATIVE) Urine Bilirubin Negative (NEGATIVE) Urine Urobilinogen 0.2 (0.2-1.0) EU/dL Ur Leukocyte Esterase Negative (NEGATIVE) Influenza Type A Ag Negative Influenza Type B Ag Negative SARS-CoV-2 Ag (CV2AG) Negative (NEGATIVE) Imaging Data CT scan - abdomen: Radiologist's impression: ITS Impressions Obstetrics Ultrasound 06/10/24 12:52 IMPRESSION: No acute abnormality Electronically authenticated by: REMI WARREN Date: 06/10/2024 13:54 Abdomen/Pelvis CT 06/10/24 14:27 IMPRESSION: Mild right obstructive uropathy with no calcifications observed. Likely related to ureteral compression from the Normal appendix Electronically authenticated by: REMI WARREN Date: 06/10/2024 15:28 Discharge Plan Discharge Chief Complaint: Abdominal Pain Clinical Impression: Gastroenteritis, Abdominal pain Patient Disposition: Home, Self-Care Time of Disposition Decision: 15:34 Condition: Good Mode of Transportation: Private Vehicle Prescriptions / Home Meds: New ondansetron 4 mg tablet,disintegrating 4 mg PO DAILY PRN (Reason: nausea and vomiting) Qty: 15 0RF Print Language: Lithuanian Instructions: Abdominal Pain in (ED) Referrals: Physician,Non-Staff, MD [Primary Care Provider] - 1 week
[2024-06-10 13:39] LABS: Basophils Percent Auto 0.1 % (0.2-2.0); Eosinophils Absolute Auto 0.1 10^3/uL (0.0-0.7); Eosinophils Percent Auto 0.4 % (0.9-7.0); Hematocrit 35.9 % (36.0-48.0); Hemoglobin 12.4 g/dL (12.0-16.0); Immature Granulocytes Abs Auto 0.06 10^3/uL (0.00-0.03); Immature Granulocytes Pct Auto 0.4 % (0.0-0.5); Lymphocytes Absolute Auto 1.7 10^3/uL (1.2-3.8); Lymphocytes Percent Auto 11.5 % (20.5-60.0); Mean Corpuscular HGB Conc 34.5 g/dL (29.9-35.2); Mean Corpuscular Hemoglobin 31.2 pg (26.7-34.0); Mean Corpuscular Volume 90.2 fL (81.0-99.0); Mean Platelet Volume 8.6 fL (9.5-13.5); Monocytes Absolute Auto 0.7 10^3/uL (0.3-0.8); Monocytes Percent Auto 5.1 % (1.7-12.0); Neutrophils Absolute Auto 12.1 10^3/uL (1.4-6.5); Neutrophils Percent Auto 82.5 % (43.0-75.0); Platelet Count 341 10^3/uL (150-450); Red Blood Count 3.98 10^6/uL (4.20-5.40); Red Cell Distribution Width 12.4 % (11.0-15.0); White Blood Count 14.6 10^3/uL (4.0-11.0)
[2024-06-10 13:49] LABS: Influenza Virus A Antigen Negative; Influenza Virus B Antigen Negative; Internal Control Within Normal Limits; SARS-CoV-2 Ag NEGATIVE (NEGATIVE)
[2024-06-10] MEDS: ONDANSETRON PF 4 MG/2 ML VIAL IV (13:52)
[2024-06-10] MEDS: 0.9 % SODIUM CHLORIDE 500 ML IV (13:52)
[2024-06-10 13:53] LABS: Alanine Aminotransferase 14 U/L (14-59); Albumin Globulin Ratio 0.7; Alkaline Phosphatase 42 U/L (46-116); Anion Gap 17.1; Aspartate Amino Transferase 9 U/L (15-37); Bilirubin Total 0.2 mg/dL (0.2-1.0); Calcium 9.3 mg/dL (8.5-10.1); Carbon Dioxide 21.8 mmol/L (21.0-32.0); Chloride 103 mmol/L (98-107); Estimated GFR (African America >60 (>=60 mL/min/1.73m^2); Estimated GFR (Non-African Ame >60 (>=60 mL/min/1.73m^2); Globulin 4.5 g/dL; Glucose 85 mg/dL (74-106); Potassium 3.9 mmol/L (3.5-5.1); Sodium 138 mmol/L (136-145); Total Protein 7.5 g/dL (6.4-8.2)
--- NOTE | 2024-06-10 14:27 | CT_ITS ---
[address] [address] Patient Name: ENRICO CASTILLO MRN: [id number] date: 2000 Sex: F Assigned Patient Location: ER Current Patient Location: ER Accession/Order Number: [id number] Exam Date: 06/10/2024 14:28 Report Date: 06/10/2024 15:28 At the request of: YUAN HOPSON Procedure: CT abdomen pelvis w con EXAMINATION: CT abdomen pelvis w con HISTORY: r/o appy COMPARISON: Ultrasound same day TECHNIQUE: CT images were created with IV contrast. Axial, Coronal, and Sagittal images. Dose reduction techniques were achieved by using automated exposure control and/or adjustment of mA and/or kV according to patient size and/or use of iterative reconstruction technique. FINDINGS: LUNG BASES: No visible pulmonary or pleural disease. LIVER: No enlargement, atrophy, abnormal density, or significant focal lesion. BILIARY: No visible dilatation or calcification. PANCREAS: No lesion, fluid collection, ductal dilatation, or atrophy. SPLEEN: No enlargement or focal lesion. ADRENALS: No mass or enlargement. KIDNEYS: Delayed right nephrogram with mild right hydroureteronephrosis extending down to the intrauterine gestation/uterus. Normal left BOWEL/MESENTERY: No visible mass, obstruction, or bowel wall thickening. Normal appendix best seen on axial image 79 coronal image 43 AORTA/VASCULAR: No aneurysm or dissection. RETROPERITONEUM: No mass or adenopathy. LYMPH NODES: No adenopathy. URINARY BLADDER: No visible focal wall thickening, lesion, or calculus. PELVIC ORGANS: Advanced Christianson intrauterine gestation. The placenta is posterior fundal in location ABDOMINAL WALL: No mass or hernia. BONES: No bony lesion or fracture. OTHER: Negative. CT/CT abdomen pelvis w con IMPRESSION: Mild right obstructive uropathy with no calcifications observed. Likely related to ureteral compression from the Normal appendix Electronically authenticated by: REMI WARREN Date: 06/10/2024 15:28
== END 2024-06-10 15:50 | disposition home or self-care (01) ==
PROVIDERS: Emergency Provider Emergency Medicine
DX: O99.891 Other specified diseases and conditions complicating pregnancy (principal); Z3A.22 22 weeks gestation of pregnancy; R10.30 Lower abdominal pain, unspecified; N13.9 Obstructive and reflux uropathy, unspecified; K52.9 Noninfective gastroenteritis and colitis, unspecified; O99.612 Diseases of the digestive system complicating pregnancy, second trimester
CPT/HCPCS: 36415; 74177; 76815; 80053; 81003; 85025; 87804; 87811; 96374; 99285; J2405; Q9967

== ENCOUNTER 2024-09-15 11:54 | Outpatient (OUT) | payer OTHER, SELFPAY ==
--- OUTSIDE RECORDS SUMMARY | 2024-09-15 12:02 | XMS_ITS | CCD ---
Author Organization [facility] Care Team Providers Care Artists' Booking Representative Name Role Phone Aroldo Laraanda Attending Unavailable Jacob, Maria Elena Primary Care Unavailable Jacob Maria Elena Attending Unavailable Jacob Maria Elena Primary Care Unavailable Kathy Kraus Primary Care Physician Unavailable Primary Care Provider UnavailLino Soler Attending Unavailable Lino Hamilton Attending Unavailable Lino Hamilton Admitting Unavailable KATHY KRAUS Primary Care Physician Unavailable Primary Care Provider UnavailDWAINE Good Attending Unavailable BRITTANYYONY JAMES Attending Unavailable BRITTANYYONY JAMES Attending Unavailable SARAH MCKEON Attending Unavailable MIMI LANZA Referring Unavailable MIMI LANZA Attending Unavailable MIMI LANZA Attending Unavailable BRITTANY, YONY R Referring Unavailable BRITTANY, YONY R Referring Unavailable LORI RAO Attending Unavailable ELVIS MARIA Referring Unavailable ELVIS MARIA Attending Unavailable BRITTANY, YONY R Referring Unavailable JORGE TELLEZ Attending Unavailable BRITTANY, YONY R Referring Unavailable BRITTANY, YONY R Referring Unavailable Allergies Allergy Classification Reported Allergen(s) Allergy Type Date of Onset Reaction(s) Facility (2 sources) No Known Medication Allergies; Translations: [No Known Medication Allergies] Propensity to adverse reactions (disorder) [facility] Repository Medications Current Medications Medication Drug Class(es) [...] for 7 day(s), 10 mL, Refill(s) 0, [facility] #[id number], 168, cm, 12/06/21 8:00:00 EDT, Height/Length Dosing, 107, kg, 12/06/21 8:00:00 EDT, Weight Dosing Start Date: 12/06/21 Stop Date: 12/13/21 Status: Ordered fluticasone propionate 0.05 mg/actuat metered dose nasal spray (1 source) Corticosteroid Start: 01-16-2021 take 1 spray(s) nasal route twice daily fluticasone 0.05 mg/inh Nasal Reagan 1 spray(s), Nasal, BID, 16 gram, Refill(s) 5, each nostril, [facility][id number], 168, cm, 01/16/21 11:00:00 EDT, Height/Length Dosing, 109.7, kg, 01/16/21 11:00:00 EDT, Weight Dosing Start Date: 01/16/21 Status: Ordered fluticasone 0.05 mg/inh Nasal Reagan (1 source) Start: 01-16-2021 take 1 spray(s) nasal route twice daily fluticasone 0.05 mg/inh Nasal Reagan 1 spray(s), Nasal, BID, 16 gram, Refill(s) 5, each nostril, [facility]/pharmacy #[id number], 168, cm, 01/16/21 11:00:00 EDT, Height/Length Dosing, 109.7, kg, 01/16/21 11:00:00 EDT, Weight Dosing Start Date: 01/16/21 Status: Ordered GENERIC EXTERNAL MEDICATION (20 sources) take 1 tablet by mouth once [...] Refills(s) 0 Start Date: 12/07/21 Status: Ordered Multivitamins with Vitamin B Complex, Vitamin C, Minerals and L-Methylfolate oral capsule (1 source) Start: 07-22-2024 Multivitamins with Vitamin B Complex, Vitamin C, Minerals and L-Methylfolate oral capsule 1 cap(s), Oral, Daily, 30 cap(s), Refill(s) 0 Start Date: 07/22/24 Status: Ordered Quantity: 30.0 Unit: cap(s) Repeat number: 1 no115/iron/folic acid ( 19 ORAL) (5 sources) take 1 tablet by mouth in the morning no115/iron/folic acid ( 19 ORAL) Take 1 tablet by mouth in the morning. Active promethazine hydrochloride 25 mg oral tablet (2 sources) Phenothiazine Start: 06-15-2021 take 1 tablet by mouth twice daily as needed for nausea promethazine 25 mg Tab 25 mg = 1 tab(s), Oral, BID, PRN as needed for nausea/vomiting, # 60 tab(s), Refills(s) 1, Pharmacy: [facility]/pharmacy #[id number], 168, cm, 04/03/21 14:43:00 EST, Height/Length Dosing, 105.8, kg, 04/03/21 14:43:00 EST, Weight Dosing Start Date: 06/15/21 Status: Ordered Problems Active Problems Problem Classification Problem Date Documented Date Episodic/Chronic Abdominal pain (6 sources) Left upper quadrant pain 01-16-2021 Episodic Anxiety disorders (6 sources) Anxiety 10-02-2020 Chronic Gastroduodenal ulcer (except hemorrhage) (7 sources) 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 Nausea and vomiting (12 sources) Nausea and vomiting 06-07-2021 Episodic Noninfectious gastroenteritis (13 sources) Chronic diarrhea; Translations: [Gastroenteritis] Onset: 06-10-2024 04-13-2021 Episodic Other complications of ; puerperium affecting management of mother (8 sources) hydronephrosis; Translations: [ hydronephrosis during , antepartum, single or unspecified fetus] Onset: 07-30-2024 07-30-2024 Episodic Other complications of (1 source) Abnormal ultrasonic finding on screening of mother; Translations: [Abnormal ultrasonic finding on screening of mother] Onset: 09-10-2024 Episodic Other diseases of kidney and ureters (1 source) Pyelectasia 07-30-2024 Episodic Other ear and sense organ disorders (4 sources) Otitis externa; Translations: [Unspecified otitis externa, unspecified ear] Onset: 12-06-2021 Chronic Other liver diseases (6 sources) Non-alcoholic fatty liver Onset: 04-29-2017 01-06-2019 Chronic Other liver diseases (7 sources) Steatosis of liver 06-15-2021 Chronic Other nutritional; endocrine; and metabolic disorders (7 sources) Body mass index 40+ - severely obese 05-06-2020 Chronic Other conditions (2 sources) Supraventricular tachycardia; Translations: [ tachycardia] 09-09-2024 Episodic Other and delivery including normal (12 sources) Normal ; Translations: [Encounter for supervision of normal first , first trimester] 03-12-2024 Episodic Other screening for suspected conditions (not mental disorders or infectious disease) (5 sources) Patient encounter status; Translations: [Encounter for other specified screening] Onset: 07-30-2024 05-20-2024 Episodic Other skin disorders (1 source) Folliculitis; Translations: [Follicular disorder, unspecified] 05-20-2024 Episodic Other upper respiratory infections (12 sources) Sore throat symptom; Translations: [Streptococcal sore throat] Onset: 08-16-2018 04-13-2021 Episodic Residual codes; unclassified (1 source) Gestation period, 9 weeks; Translations: [9 weeks gestation of ] 03-12-2024 Episodic Residual codes; unclassified (2 sources) Gestation period, 15 weeks; Translations: [15 weeks gestation of ] 04-23-2024 Episodic Residual codes; unclassified (1 source) Gestation period, 19 weeks; Translations: [19 weeks gestation of ] 05-20-2024 Episodic Residual codes; unclassified (2 sources) Gestation period, 26 weeks; Translations: [26 weeks gestation of ] 07-09-2024 Episodic Residual codes; unclassified (1 source) Gestation period, 29 weeks; Translations: [29 weeks gestation of ] 07-30-2024 Episodic Residual codes; unclassified (7 sources) ultrasound scan abnormal; Translations: [Pyelectasis of fetus on ultrasound] Onset: 07-30-2024 07-30-2024 Episodic Residual codes; unclassified (1 source) Family history of hereditary disease; Translations: [Family history of other congenital malformations, deformations and chromosomal abnormalities] 07-30-2024 Episodic Residual codes; unclassified (2 sources) Gestation period, 33 weeks; Translations: [33 weeks gestation of ] 08-26-2024 Episodic Residual codes; unclassified (2 sources) Gestation period, 35 weeks; Translations: [35 weeks gestation of ] 09-09-2024 Episodic Substance-related disorders (4 sources) Smoker 12-07-2021 Chronic Comment on above: Added secondary to d ocumentation in Social History. Unclassified (6 sources) History of SARS-CoV-2 04-13-2021 Unclassified (6 sources) Non-smoker 05-06-2020 Unclassified (1 source) New Patient Onset: 09-10-2024 Unclassified (2 sources) Maternal care for other (suspected) abnormality and damage, genitourinary anomalies, not applicable or unspecified; Translations: [Maternal care for other (suspected) abnormality and damage, genitourinary anomalies, not applicable or unspecified] Onset: 07-30-2024 Unclassified (1 source) add on pyelectasis, hydronephrosis right kidney Onset: 07-30-2024 Viral infection (2 sources) Disease caused by 2019-nCoV; Translations: [COVID-19] Past or Other Problems Problem Classification Problem Date Documented Da te Episodic/Chronic Skin and subcutaneous tissue infections (2 sources) Cellulitis of face; Translations: [Cellulitis of face] Onset: 12-07-2021 Episodic Superficial injury; contusion (2 sources) Contusion of hand; Translations: [Contusion of unspecified hand, initial encounter] Onset: 10-25-2022 Episodic Results Test Name Value Interpretation Reference Range Facility Urinalysis macro (dipstick) panel (U)on 08-26-2024 Bilirubin, UA Negative Negative - 4(70) +++ mg/dL [facility] Blood, UA Negative Negative - 50 Titus/mcL [facility] Clarity, UA Clear [facility] Color, UA Yellow [facility] Glucose, UA Negative Negative - 2000(110) ++++ mg/dL [facility] Interpretation and review of laboratory results Normal [facility] Ketones, UA Negative Negative - 160(16) ++++ mg/dL [facility] Leukocytes, UA Negative Negative - 500+++ Tristan/mcL [facility] Nitrite, UA Negative Negative - Positive [facility] pH, UA 7.5 5 - 9 [facility] Protein, UA Negative Negative - 2000(20) ++++ mg/dL [facility] Spec Grav, UA 1.02 1 - 1.03 [facility] Urobilinogen, UA 0.2 0.2 - 12 mg/dL [facility] C Throaton 07-24-2024 Throat culture Microbiology PROCEDURE: Throat Culture [R1] SOURCE: Throat BODY SITE: COLLECTED DATE/TIME: 07/22/2024 14:35 EDT RECEIVED DATE/TIME: 07/22/2024 16:27 EDT START DATE/TIME: 07/22/2024 16:28 EDT FREE TEXT SOURCE: Alfonso GAY, Lino Sarabia. Alfonso GAY, Lino Frias FINAL REPORTS Final Report [] Verified Date/Time: 07/24/2024 07:15 EDT 2+ Normal throat lb isolated Performing Locations R1: This test was performed at: [facility], [address] [place] [address], [phone] [phone] , Normal [facility] Comment on above: Performed By: #### 2 [id number] #### [facility] [address] [place] [address] Family Medicine Office/Clini c Noteon 07-22-2024 Family Medicine Office/Clinic Note Family Medicine Office/Clinic Note Chief Complaint headache, sore throat HPI [...] with voice recognition software. Occasional wrong-word or ???[id number]-w-[id number]??? 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 She follows with [employer] Dr. Soto. Denies nausea or vomiting but [...] increased difficulty swallowing, opening mouth, or difficulty m (more content not included)... Normal [facility] Comment on above: Result Comment: Elec tronically Signed By: Alfonso GAY, Lino Frias\.br\Date and Time Signed: 07/22/24 14:54 EDT No Panel InformationOrdered By: Jayla Banuelos on 07-22-2024 Throat culture 2+ Normal throat lb isolated [facility] Patient Letter FTon 2024 Patient Letter [facility] Patient Letter [facility] [address], [place] [address] [phone] July 22, 2024 APRIL PUENTE [address] [place] [address] : 2000 Please excuse APRIL PUENTE from work . Date and/or Time of Absence: From: 07/21/24 To: 07/24/24 May return to work on: 07/24/24 Restrictions: None Comments: Please excuse due to an acute illness. Provider Signature: Lino Hamilton PA-C Physician Intelligence Manager [facility] [address] [place] [address] Normal [facility] Urinalysis macro (dipstick) panel (U)on 07-09-2024 Bilirubin, UA Negative Negative - 4(70) +++ mg/dL [facility] Blood, UA Negative Negative - 50 Titus/mcL [facility] Clarity, UA Clear [facility] Color, UA Yellow [facility] Glucose, UA Negative Negative - 2000(110) ++++ mg/dL [facility] Interpretation and review of laboratory results Normal [facility] Ketones, UA Negative Negative - 160(16) ++++ mg/dL [facility] Leukocytes, UA Negative Negative - 500+++ Tristan/mcL [facility] Nitrite, UA Negative Negative - Positive [facility] pH, UA 7 5 - 9 [facility] Protein, UA Negative Negative - 2000(20) ++++ mg/dL [facility] Spec Grav, UA 1.015 1 - 1.03 [facility] Urobilinogen, UA 0.2 0.2 - 12 mg/dL [facility] US OB 14+ WEEKS ANATOMY SCAN on 06-29-2024 US OB 14+ WEEKS ANATOMY SCAN EXAM: US OB 14+ WEEKS ANATOMY SCAN HISTORY: anatomy. TECHNIQUE: Two-dimensional transabdominal grayscale [...] the four-chamber heart and outflow tracts. A short-term follow-up ultrasound is recommended. Electronically Signed:Electronically signed by JOEY WILLINGHAM II, MD, PHD at 30-Jun-2024 09:25:03 AM [facility] Normal Not Available Comment on above: Order Comment: US OB ANATOMY SINGLE W US OB CERVICAL LENGTH Estimated Date of Delivery: 10/14/24 Gestational Age as of 05/20/2024: 19w0d IGP,APTIMA HPV,AGE GDLNon AGE GDLN ACOG TESTING Note . [facility] Comment on above: TESTS RESULT FLAG UN ITS REF RANGE LAB Clinician Provided Cytology Information Source.............Cervix No. of containers..01 ThinPrep Vial Age Algo ACOG Tanya... - 01 FLAG LEGEND: L-Low Normal,H-High Normal,LL-Alert Low,HH-Alert High <-Panic Low,>-Panic High,A-Abnormal,AA-Critical Abnormal Performed at: 01 =G [address] [address] Lalita Ibrahim MD, HPV APTIMA Negative Negative [facility] Comment on above: This nucleic acid am plification test detects fourteen high- risk HPV types (16,18,31,33,35,39,45,51,52,56,58,59,66,68) without differentiation. Performed at: =G - [facility] [address] [place], [facility] [place], [place] [id number] Physics Technical Officer: Lalita Ibrahim MD, Phone: [phone] Performed at: - [facility] [place] [address] [place], [facility] [place], [place] [id number] Physics Technical Officer: Lalita Ibrahim MD, Phone: [phone] IGP, RFX APTIMA HPV ASCU Note Abnormal . [facility] Comment on above: TESTS RESULT FLAG UN ITS REF RANGE LAB DIAGNOSIS: [A] 02 EPITHELIAL CELL ABNORMALITY. ATYPICAL SQUAMOUS CELLS OF UNDETERMINED SIGNIFICANCE (ASC-US). Recommendation: [A] 02 Suggest follow up as clinically appropriate. Specimen adequacy: 02 Satisfactory for evaluation. Endocervical and/or squamous metaplastic cells (endocervical component) are present. Performed by: 02 Mimi Jimenez, Gps Navigation Installer (ASCP) Electronically si... 02 Lino Rodríguez MD, [...] <-Panic Low,>-Panic High,A-Abnormal,AA-Critical Abnormal Performed at: [address] [address] Lalita Ibrahim MD, Interpretation and review of laboratory results Abnormal [facility] SPATULA-ALONE CERVIX [facility] RECURRENT VAGINITIS (HTRX)on 05-21-[address] [facility] ATOPOBIUM VAGINAE Not detected [facility] BVAB 2,3 (BACTERIAL VAGINOSIS ASSOCIATED BACTERIA 2, 3); MOBILUNCUS SPP 0 [facility] BVAB 2,3 (BACTERIAL VAGINOSIS ASSOCIATED BACTERIA 2, 3); MOBILUNCUS SPP Not detected [facility] DAVIDA ALBICANS, PARAPSILOSIS, TROPICALIS 0 [facility] DAVIDA ALBICANS, PARAPSILOSIS, TROPICALIS Not detected [facility] DAVIDA GLABRATA 0 [facility] DAVIDA GLABRATA Not detected [facility] DAVIDA KRUSEI [address] [facility] DAVIDA KRUSEI Not detected [facility] CHLAMYDIA TRACHOMATIS 0 [facility] CHLAMYDIA TRACHOMATIS Not detected [facility] GARDNERELLA VAGINALIS 0 [facility] GARDNERELLA VAGINALIS Not detected [facility] MEGASPHAERA (TYPES 1, 2) 0 [facility] MEGASPHAERA (TYPES 1, 2) Not detected [facility] MYCOPLASMA GENITALIUM 0 [facility] MYCOPLASMA GENITALIUM Not detected [facility] NEISSERIA GONORRHOEAE 0 [facility] NEISSERIA GONORRHOEAE Not detected [facility] TRICHOMONAS VAGINALIS 0 [facility] TRICHOMONAS VAGINALIS Not detected [facility] Urinalysis macro (dipstick) panel (U)on 05-20-2024 Bilirubin, UA Negative Negative - 4(70) +++ mg/dL [facility] Blood, UA Negative Negative - 50 Titus/[facility]L [facility] Clarity, UA Clear [facility] Color, UA Yellow [facility] Glucose, UA Negative Negative - 1999(110) ++++ mg/dL [facility] Interpretation and review of laboratory results Normal [facility] Ketones, UA Negative Negative - 160(16) ++++ mg/dL [facility] Leukocytes, UA Negative Negative - 500+++ Tristan/mcL [facility] Nitrite, UA Negative Negative - Positive [facility] pH, UA 5.5 5 - 9 [facility] Protein, UA Negative Negative - 1999(20) ++++ mg/dL [facility] Spec Grav, UA 1.025 1 - 1.03 [facility] Urobilinogen, UA 0.2 0.2 - 12 mg/dL [facility] AFP, SERUM, OPEN SPINA BIFID Aon 05-19-2024 AFP MOM 1.09 . [facility] AFP VALUE 40.6 ng/mL . [facility] COMMENT: Comment . [facility] Comment on above: Torri John , Ph.D., [facility] Director References: Available Upon Request. Multiples Of Median Cutoffs For AFP Elevations Christianson 2.5 Black 2.8 IDD 2.0 Twins 4.5 Abbreviation Definitions IDD - Insulin Dep Diabetes OSBR - Open Spina Bifida Risk For further inquiries contact [employer] at [phone]. This test was developed and its performance characteristics determined by [employer] It has not been cleared or approved by the Food and Drug Administration. Performed at: [facility] [place], [place] [id number] Physics Technical Officer: Amee Marmolejo [facility], Phone: [phone] GEST. AGE ON COLLECTION DATE 18.7 . weeks [facility] GESTAT. AGE BASED ON LMP . [facility] Comment on above: Recalculations are n ot recommended when gestational dating by LMP and ultrasound are within 10 days. INSULIN DEP DIABETES No . [facility] INTERPRETATION Comment . [facility] Comment on above: Interpretation: Scre en [...] Customer Services to discuss available options. The [employer] recommends amniocentesis be offered to women age 35 and older. [age] [facility] MULTIPLE GESTATION No . [facility] OSBR RISK 1 IN 9230 . [facility] RACE Other . [facility] RESULTS Report . [facility] TEST RESULTS: Negative . [facility] WEIGHT 220 . lbs [facility] N N LMP [id number] 1 15 N 1 Y 220 N N N N N White/ [facility] Urinalysis macro (dipstick) panel (U)on 04-23-2024 Bilirubin, UA Negative Negative - 4(70) +++ mg/dL [facility] Blood, UA Negative Negative - 50 Titus/mcL [facility] Clarity, UA Clear [facility] Color, UA Yellow [facility] Glucose, UA Negative Negative - 2000(110) ++++ mg/dL [facility] Interpretation and review of laboratory results Abnormal [facility] Ketones, UA Negative Negative - 160(16) ++++ mg/dL [facility] Leukocytes, UA Negative Negative - 500+++ Tristan/mcL [facility] Nitrite, UA Negative Negative - Positive [facility] pH, UA 7.5 5 - 9 [facility] Protein, UA Trace Negative - 2000(20) ++++ mg/dL [facility] Spec Grav, UA 1.02 1 - 1.03 [facility] Urobilinogen, UA 0.2 0.2 - 12 mg/dL [facility] MLR HEMOGLOBIN A1Con 16-2 024 Glucose [Mass/Vol] 97 mg/dL [facility] HbA1c (Bld) [Mass fraction] 5 % 4.5 - 6.2 % [facility] Comment on above: ADA RECOMMENDED LIMI T 4.0 - 6.0 ADA THERAPEUTIC TARGET < 7.0 ACTION SUGGESTED > [facility] CHEMISTRYOrdered By: SYSTEM SYSTEM on 10-31-2022 25-hydroxyvitamin D3 [Mass/Vol] 10.1 ng/mL Low 30.0 - 100.0 ng/mL [facility] Remisol Cholesterol [Mass/Vol] 190 mg/dL Normal 120 - 200 mg/dL [facility] Remisol Cholesterol in HDL [Mass/Vol] 44 mg/dL [...] fraction] 4.9 % Normal <=5.9% FT [facility] Reference Laboratory Testing Ordered By: [facility] DomainUser on 05-08-2021 SARS-CoV-2 (COVID-19) RNA GA+probe Ql (Resp) Detected Invalid Interpretation Code Not Detected [facility] Comment on above: Result Comment: Chanel ents who have a positive COVID-19 test result may now have treatment options. Treatment options are available for patients with mild to moderate symptoms and for hospitalized patients. Visit our website at [email or web address] for resources and information. This nucleic acid amplification test was developed and its performance characteristics determined by [employer]. Nucleic acid amplification tests include RT-PCR and [...] detected) result in this assay. Performed at: [address] [id number] PhD Mp [facility] CNCOon 02-10-2019 CNCO Letter Text Normal [facility] CNOVon 02-03-2019 CNOV Office Visit (PNTRMN ) APRIL MIN ([id number]) 4 F Date Time Provider Department 02/03/19 4:15 PM [employer] CINDY DANIELS PNTRMN During your visit today, [...] x 100-150 hakeem snacks daily is ok https://[employer]/ [employer]/365-qdlmwyp-bo acks https://www.[employer]/646-qknwwwy-topswu / 1/2 serving healthy fat: 1/2 oz [...] 2 months for attainment of goals. April Dimashailee Fried is a 19 year old female, [...] February 03, 2019 TIME: 3:48 PM PAGER: [phone] 02/03/2019 4:22 PM Addendum [...] x 100-150 hakeem snacks daily is ok https://[employer]/ health/935-usoqdfw-xy acks https://www.[employer].c om/466-keyjjto-halzrb / 1/2 serving healthy fat: 1/2 oz [...] Татьяна Ayala) MS Evelia, RD, CSP, LD [facility] [place] [facility] [phone] Referring Provider: SHEA THOMSON) [[id number]] Allergies As of Date: 02/03/2019 (No Known [...] x 100-150 hakeem snacks daily is ok https://[employer]/ [employer]/504-blcrihj-zz acks https://www.[employer].c om/987-mvuxxqd-rcbrlf / 1/2 serving healthy fat: 1/2 oz nuts (2 TBSP) - dry roasted, lightly salted or no salt OR raw 1/4 avocado 14 large olives or 23 small olives Supplements: Recommend vit D - 50,000 IU as was prescribed by Shea Thomson in October. Call [facility] about this, you should be able to get this filled. Activity: Goal of at least 30 min per day OR look up tabata workouts on youtube Follow-up: 2 months Татьяна Ayala) MS Evelia, RD, CSP, LD [facility] [phone] Letter Text Encounter Status:Closed by ТАТЬЯНА QUILES on 02/03/19 Normal [facility] CNOV Office Visit (PGASMN ) APRIL MIN ([id number]) 4 F Date Time Provider Department 02/03/19 [...] became a problem for April at age group counselor. Recently, her weight trend has been: Trending [...] surgery? no Diabetes: yes in maternal grandmother CAD/UT: no Early coronary disease in first degree [...] Abs Lymph 1.00 - 4.00 k/uL 2.76 Aguada% % 8.4 Abs Aguada <0.87 k/uL 0.70 Eosin% % 1.7 Abs [...] clinic, April Fried will meet with a mail inserter today. 2) Obesity: Yes 3) Hypertension: No [...] in 4 months Referring Provider: SHEA THOMSON) [[id number]] Allergies As of Date: 02/03/2019 (No Known Allergies) Date Reviewed: 10/27/2018 Reviewed by: Shea Ngo) MD Yandel - Fully Assessed Reason for Visit: Consult [502] Cmt: non-alchoholic fatty liver disease Primary Visit Diagnosis:Hepatic steatosis [K76.0] Other Visit Diagnoses:NAFLD (nonalcoholic fatty liver disease) [K76.0] Pediatric obesity due to excess calories without serious comorbidity, unspecified BMI [E66.09] Order(s):CERULOPLASMI N BLD [SQCERULO] Order #: [id number]. #:[id number] [id number] REMOTE PANEL BL [SQHREMOP] Order #: [id number]. #:[id number] HGB A1C [AEAQI6K] Order #: [id number]. #:[id number] HEPATIC FUNCTION PNL [SQHFP] Order #: [id number] FUTURE Prescriptions as of 02/03/2019 Sig: ERGOCALCIFEROL [...] JOHNNY ARANGO MD on 02/03/19 Normal [facility] Ceruloplasminon 02-03-2019 Ceruloplasmin 29 mg/dL Normal 16-45 [facility] Comment on above: Performed By: #### C ERULO, HBA1C, HREMOP ####[facility] [address] [place], [place] [phone] Hemoglobin A1con 02-03-2019 HbA1c (Bld) [Mass fraction] 4.9 % Normal 4.3-5.6 [facility] Comment on above: Result Comment: Amer ican Diabetes Association guidelines indicate that patients with HgbA1c in the range 5.7-6.4% are at increased risk for development of diabetes, and intervention by lifestyle modification may be beneficial. HgbA1c greater or equal to 6.5% is considered diagnostic of diabetes. Performed By: #### C ERULO, HBA1C, HREMOP ####[facility] [address] [place], [place] [phone] HbA1c (Bld) [Mass fraction] 94 mg/dL Normal [facility] Comment on above: Result Comment: eAG: (Estimated average glucose) is a calculated value from HgbA1c and is territory sales representative of the average blood glucose level in the last 2-3 month period. Performed By: #### C ERULO, HBA1C, HREMOP ####[facility] [address] [place], [place] [phone] Hepatic Functn Panelon 02-03 Albumin [Mass/Vol] 4.4 g/dL Normal 3.2-4.5 [facility] Comment on above: Performed By: #### H FP ####[facility], [place] [phone] ALP [Catalytic activity/Vol] 75 U/L Normal 45-87 [facility] Comment on above: Result Comment: Refe rence ranges were not locally established for this patient's age group. The normal values are based on the following source: Kira MP, Ethan AH, et al. CLSI based transference of the CALIPER database of pediatric reference intervals from [place] to Gini, Ortho, Ana, and Siemens Clinical Chemistry Assays: Direct validation using reference samples from the CALIPER cohort. Clin Biochem. Performed By: #### H FP ####[facility] [place], [place] [phone] ALT [Catalytic activity/Vol] 26 U/L Normal 7-38 [facility] Comment on above: Result Comment: (NOT E) Reference ranges for this patient's age group have not been established. These reference ranges reflect verified or established ranges for the adult population. Interpret these ranges wtih caution using clinical context and additional reference resources. Performed By: #### H FP ####[facility] [place], [place] [phone] AST [Catalytic activity/Vol] 24 U/L Normal 13-35 [facility] Comment on above: Result Comment: (NOT E) Reference ranges for this patient's age group have not been established. These reference ranges reflect verified or established ranges for the adult population. Interpret these ranges with caution using clinical context and additional reference resources. Performed By: #### H FP ####[facility] [place], [place] [phone] Bilirubin [Mass/Vol] 0.2 mg/dL Normal 0.2-1.3 [facility] Comment on above: Result Comment: (NOT E) Reference ranges for this patient's age group have not been established. These reference ranges reflect verified or established ranges for the adult population. Interpret these ranges with caution using the clinical context and additional reference resources. Performed By: #### H FP ####[facility] [place], [place] [phone] Bilirubin,Conjugated <0.2 Normal <0.2 [facility] Comment on above: Result Comment: (NOT E) Reference ranges for this patient's age group have not been established. These reference ranges reflect verified or established ranges for the adult population. Interpret these ranges with caution using the clinical context and additional reference resources. Performed By: #### H FP ####[address] [phone] Protein [Mass/Vol] 7.8 g/dL Normal 6.3-8.0 [facility] Comment on above: Result Comment: (NOT E) [...] g/dL 15-17 years 6.4-8.3 g/dL Reference: Armando KAY, Home I, Srinivasan M, et al. [place] Laboratory Initiative on Reference Interval Database(CALIPER): pediatric reference intervals for an integrated clinical chemistry and immunoassay analyzer, Burns BUSINESS TRANSFORMATION CONSULTANT [id number]. Clin Biochem 2009;42:885-891. Performed By: #### H FP ####[facility] [place], [place] [phone] Hepatitis Remote Panelon HBsAg Negative Normal Negative [facility] Comment on above: Performed By: #### C ERULO, HBA1C, HREMOP ####[facility] [address], [place] [phone] Hep B Core Ab,Total Negative Normal Negative [facility] Comment on above: Performed By: #### C ERULO, HBA1C, HREMOP ####[facility] [address] [place], [place] [phone] Hepatitis C Ab IA Negative Normal Negative [facility] Comment on above: Performed By: #### C ERULO, HBA1C, HREMOP ####[facility] [address], [place] [phone] HepB Surface Ab,Qual Negative Normal Negative [facility] Comment on above: Result Comment: NEGA TIVE Performed By: #### C ERULO, HBA1C, HREMOP ####[facility] [place], [place] [phone] PROGRESSon 02-03-2019 PROGRESS HNO ID: [id number] Author: Татьяна Quiles Service: ? Author Type: [...] x 100-150 hakeem snacks daily is ok https://[employer]/ [email or web address]-kyuxruu-sr acks https://[email or web address]-zljfsov-dsfgqi / 1/2 serving healthy fat: 1/2 oz [...] Time Spent: 30 minutes SIGNATURE: Татьяна Quiles, , RD, CSP, LD PATIENT NAME: April Fried DATE: February 03, 2019 TIME: 3:48 PM PAGER: [phone] Normal [facility] PROGRESS HNO ID: [id number] Author: Momo Coronado (Coord) Service: ? Author Type: Research Type: Progress Notes Filed: 02/03/2019 4:01 PM Note Text: DATE: February 03, 2019 TIME: 03:20 PM PT. NAME: April Fried [facility]#: [id number] IRB #: [id number] PROTOCOL: TARGET-ROJAS: 5-year Longitudinal Observational Study of Patients with Nonalcoholic Fatty Liver or Nonalcoholic Steatohepatitis Principle Materials Management Clerk: Dr. Johnny mccartney SC: Momo Coronado, (Pager [phone]) [facility] personal care aide for study related questions: Ped. [place] (Momo Coronado, Research Crd - Pager [phone]) April Fried was seen today as standard of care visit with Dr. Mendieta in the Pediatric Gastroenterology Clinic. In addition,April Fried was consented and enrolled in the TARGET-ROJAS- study [id number]. Acoustical Material Worker and/or Research Coordinator explained the protocol to [...] standard of care visit. _ Tata Knowles [facility] Normal [facility] PROGRESS HNO ID: [id number] Author: Johnny Mendieta Service: ? Author Type: [...] became a problem for April at age group counselor. Recently, her weight trend has been: Trending [...] surgery? no Diabetes: yes in maternal grandmother CAD/UT: no Early coronary disease in first degree [...] Abs Lymph 1.00 - 4.00 k/uL 2.76 Aguada% % 8.4 Abs Aguada <0.87 k/uL 0.70 Eosin% % 1.7 Abs [...] clinic, April Fried will meet with a mail inserter today. 2) Obesity: Yes 3) Hypertension: No [...] Liver Clinic February 03, 2019 Normal [facility] CNPTOUTREACHon 12-10-2018 CNPTOUTREACH Patient Outreach (PGASMN) APRIL MIN ([id number]) 4 F Date Time Provider Department 12/10/18 SHEA THOMSON) PGASMN During your visit today, we recorded [...] Status:Closed by SEN MENDOZA on 12/10/18 Normal [facility] PROGRESSon 12-10-2018 PROGRESS HNO ID: [id number] Author: Sen Mendoza Service: ? Author Type: [...] for RN at this time. Normal [facility] Amylaseon 10-27-2018 Amylase [Catalytic activity/Vol] 56 U/L Normal 30-104 [facility] Comment on above: Result Comment: (NOT E) Reference ranges for this patient's age group have not been established. These reference ranges reflect verified or established ranges for the adult population. Interpret these ranges with caution using the clinical context and additional reference resources. Performed By: #### A MYL, CRP, LIPA, VITD, ENDOMY, GLIIGA, TGIGA #### [place] [address] C-Reactive Proteinon 019 CRP [Mass/Vol] 0.3 mg/dL Normal <0.9 [facility] Comment on above: Performed By: #### A MYL, CRP, LIPA, VITD, ENDOMY, GLIIGA, TGIGA #### [place] [phone] CBC and Differentialon 10-27 Abs Baso <0.03 Normal <0.11 [facility] Comment on above: Performed By: #### A MYL, CRP, LIPA, VITD, ENDOMY, GLIIGA, TGIGA #### [place] [phone] Abs Aguada 0.70 k/uL Normal <0.87 [facility] Comment on above: Performed By: #### A MYL, CRP, LIPA, VITD, ENDOMY, GLIIGA, TGIGA #### [place] [phone] Abs Neut 4.75 k/uL Normal 1.45-7.50 [facility] Comment on above: Performed By: #### A MYL, CRP, LIPA, VITD, ENDOMY, GLIIGA, TGIGA #### [place] [phone] Absolute nRBC <0.01 Normal <0.01 [facility] Comment on above: Performed By: #### A MYL, CRP, LIPA, VITD, ENDOMY, GLIIGA, TGIGA #### [place] [address] Basophils/100 WBC (Bld) 0.2 % Normal [facility] Comment on above: Performed By: #### A MYL, CRP, LIPA, VITD, ENDOMY, GLIIGA, TGIGA #### [place] [phone] DTYPE Auto Diff Normal [facility] Comment on above: Performed By: #### A MYL, CRP, LIPA, VITD, ENDOMY, GLIIGA, TGIGA #### [place] [phone] Eosinophils (Bld) [#/Vol] 0.14 10*3/uL Normal <0.46 [facility] Comment on above: Performed By: #### A MYL, CRP, LIPA, VITD, ENDOMY, GLIIGA, TGIGA #### [place] [phone] Eosinophils/100 WBC (Bld) 1.7 % Normal [facility] Comment on above: Performed By: #### A MYL, CRP, LIPA, VITD, ENDOMY, GLIIGA, TGIGA #### [place] [phone] Erythrocyte distribution width (RBC) [Ratio] 12.4 % Normal 11.5-15.0 [facility] Comment on above: Performed By: #### A MYL, CRP, LIPA, VITD, ENDOMY, GLIIGA, TGIGA #### [place] [phone] Hematocrit (Bld) [Volume fraction] 38.5 % Normal 36.0-46.0 [facility] Comment on above: Performed By: #### A MYL, CRP, LIPA, VITD, ENDOMY, GLIIGA, TGIGA #### [place] [phone] Hemoglobin (Bld) [Mass/Vol] 12.5 g/dL Normal 11.5-15.5 [facility] Comment on above: Performed By: #### A MYL, CRP, LIPA, VITD, ENDOMY, GLIIGA, TGIGA #### [place] [address] Lymphocytes (Bld) [#/Vol] 2.76 10*3/uL Normal 1.00-4.00 [facility] Comment on above: Performed By: #### A MYL, CRP, LIPA, VITD, ENDOMY, GLIIGA, TGIGA #### [place] [address] Lymphocytes/100 WBC (Bld) 33.0 % Normal [facility] Comment on above: Performed By: #### A MYL, CRP, LIPA, VITD, ENDOMY, GLIIGA, TGIGA #### [place] [address] MCH (RBC) [Entitic mass] 27.8 pG Normal 26.0-34.0 [facility] Comment on above: Performed By: #### A MYL, CRP, LIPA, VITD, ENDOMY, GLIIGA, TGIGA #### [place] [address] MCHC (RBC) [Mass/Vol] 32.5 g/dL Normal 30.5-36.0 [facility] Comment on above: Performed By: #### A MYL, CRP, LIPA, VITD, ENDOMY, GLIIGA, TGIGA #### [place] [address] MCV (RBC) [Entitic vol] 85.7 fL Normal 80.0-100.0 [facility] Comment on above: Performed By: #### A MYL, CRP, LIPA, VITD, ENDOMY, GLIIGA, TGIGA #### [place] [address] Monocytes/100 WBC (Bld) 8.4 % Normal [facility] Comment on above: Performed By: #### A MYL, CRP, LIPA, VITD, ENDOMY, GLIIGA, TGIGA #### [place] [id number] [place] [phone] Neutrophils/100 WBC (Bld) 56.7 % Normal [facility] Comment on above: Performed By: #### A MYL, CRP, LIPA, VITD, ENDOMY, GLIIGA, TGIGA #### [place] [phone] NRBCs 0.0 /100 WBC Normal 0 [facility] Comment on above: Performed By: #### A MYL, CRP, LIPA, VITD, ENDOMY, GLIIGA, TGIGA #### [place] [phone] Platelet mean volume (Bld) [Entitic vol] 8.5 fL Low 9.0-12.7 [facility] Comment on above: Performed By: #### A MYL, CRP, LIPA, VITD, ENDOMY, GLIIGA, TGIGA #### [place] [phone] Platelets (Bld) [#/Vol] 387 10*3/uL Normal 150-400 [facility] Comment on above: Performed By: #### A MYL, CRP, LIPA, VITD, ENDOMY, GLIIGA, TGIGA #### [place] [address] RBC (Bld) [#/Vol] 4.49 10*6/uL Normal 3.90-5.20 [facility] Comment on above: Performed By: #### A MYL, CRP, LIPA, VITD, ENDOMY, GLIIGA, TGIGA #### [place] [address] WBC (Bld) [#/Vol] 8.37 10*3/uL Normal 3.70-11.00 [facility] Comment on above: Performed By: #### A MYL, CRP, LIPA, VITD, ENDOMY, GLIIGA, TGIGA #### [facility] [address] [place], [place] [address] CNCOon 10-27-2018 CNCO Letter Text Normal [facility] CNOVon 10-27-2018 CNOV Office Visit (PGASAV ) ARTAPRIL RUIZ ([id number]) 02 F Date Time Provider Department 10/27/18 [...] record delivery) to JASMYN Gong. HPI: April Mccartney McKenzihailee Fried is a 18 year old female [...] labwork or ultrasounds were completed. Mostly just LOWERATOR OPERATOR that they saw started medications. Bowel [...] 2.39) based on CDC (Girls, 2-20 Years) qwbfqp-lak-bfx data using vitals from 10/27/2018.)(>99 %ile (Z= [...] in 6 weeks or sooner prn Shea Thomson MD Pediatric Gastroenterology Staff [facility] CC: Maria Elena Lara, FORESTRY SUPPORT SPECIALIST-C [address] [place] [id number] Shea Thomson MD, MD 10/27/2018 1:28 PM Signed Labs today Stool sample - drop off at [facility] Ultrasound - at [facility] Bentyl - take pain three times per day as needed for pain Referring Provider: MARIA ELENA LARA [[id number]] Allergies As of Date: 10/27/2018 (No Known Allergies) Date Reviewed: 10/27/2018 Reviewed by: Shea Ngo) MD Yandel - Fully Assessed Reason for Visit: New Patient [172] Primary Visit Diagnosis:RUQ abdominal pain [R10.11] Other Visit Diagnoses:Nausea [R11.0] Constipation, unspecified constipation type [K59.00] Order(s):TSH BLD [SQTSH] Order #: [id number] FUTURE SED RATE WESTERGREN [SQWSR] Order #: [id number] FUTURE ENDOMYSIAL IGA AB [SQENDOMY] Order #: [id number] IGA BLD [SQIGA] Order #: [id number] FUTURE C-REACTIVE PROTEIN (CRP) [SQCRP] Order #: [id number] VITAMIN D 25 HYDROXY [SQVITD] Order #: [id number] COMP METABOLIC PANEL [SQCMP] Order #: [id number] FUTURE CBC + DIFF [SQCBCDIF] Order #: [id number] T4 FREE/FREE THYROX [SQFT4] Order #: [id number] FUTURE LIPASE BLD [SQLIPA] Order #: [id number] GLIADIN (DEAMIDATED) AB, IGA [SQGLIIGA] Order #: [id number] AMYLASE BLD [SQAMYL] Order #: [id number] TRANSGLUTAMINASE IGA [SQTGIGA] Order #: [id number] dicyclomine (BENTYL) 20 mg tabletTake 1 tablet [...] today Stool sample - drop off at [facility] Ultrasound - at local [facility] Bentyl - take pain three [...] by SHEA THOMSON MD on 10/27/18 Normal [facility] Comp Metabolic Panelon 10-27 Albumin [Mass/Vol] 4.5 g/dL Normal 3.2-4.5 [facility] Comment on above: Result Comment: Refe rence ranges were not locally established for this patient's age group. The normal values are based on the following source: Albumin (Gen. 2) (package insert v 10.0 [place]). [facility], [place], [place], June 2014. Performed By: #### F T4, WSR, IGA ####[facility] [place], [place] [phone] ALP [Catalytic activity/Vol] 72 U/L Normal 50-117 [facility] Comment on above: Result Comment: Refe [...] Clin Biochem. Performed By: #### F ANJUM Cowan, IGA ####[address] [phone] ALT [Catalytic activity/Vol] 29 U/L Normal 7-38 [facility] Comment on above: Result Comment: (NOT E) Reference ranges for this patient's age group have not been established. These reference ranges reflect verified or established ranges for the adult population. Interpret these ranges wtih caution using clinical context and additional reference resources. Performed By: #### F ANJUM Cowan, IGA ####[address] [phone] Anion gap [Moles/Vol] 13 mmol/L Normal 9-18 [facility] Comment on above: Result Comment: (NOT E) Reference ranges for this patient's age group have not been established. These reference ranges reflect verified or established ranges for the adult population. Interpret these ranges with caution using the clinical context and additional reference resources. Performed By: #### F ANJUM Cowan, IGA ####[address] [phone] AST [Catalytic activity/Vol] 19 U/L Normal 13-35 [facility] Comment on above: Result Comment: (NOT E) Reference ranges for this patient's age group have not been established. These reference ranges reflect verified or established ranges for the adult population. Interpret these ranges with caution using clinical context and additional reference resources. Performed By: #### F ANJUM Cowan, IGA ####[address] [phone] Bilirubin [Mass/Vol] 0.2 mg/dL Normal 0.2-1.3 [facility] Comment on above: Result Comment: (NOT E) Reference ranges for this patient's age group have not been established. These reference ranges reflect verified or established ranges for the adult population. Interpret these ranges with caution using the clinical context and additional reference resources. Performed By: #### F ANJUM Cowan, IGA ####[facility] [place], [place] [phone] Calcium [Mass/Vol] 9.7 mg/dL Normal 8.5-10.2 [facility] Comment on above: Result Comment: Refe rence ranges were not locally established for this patient's age group. The normal values are based on the following source: Calcium (Gen. 2) (package insert v3.0 [place]). [facility], [place], [place], January 2013. Performed By: #### F ANJUM Cowan, IGA ####[facility] [place], [place] [phone] Chloride [Moles/Vol] 103 mmol/L Normal 97-105 [facility] Comment on above: Result Comment: (NOT E) Reference ranges for this patient's age group have not been established. These reference ranges reflect verified or established ranges for the adult population. Interpret these ranges with caution using the clinical context and additional reference resources. Performed By: #### F ANJUM Cowan, IGA ####[facility], [place] [phone] CO2 [Moles/Vol] 22 mmol/L Normal 22-30 [facility] Comment on above: Result Comment: (NOT E) Reference ranges for this patient's age group have not been established. These reference ranges reflect verified or established ranges for the adult population. Interpret these ranges with caution using the clinical context and additional reference resources. Performed By: #### F T4ANJUM, IGA ####[facility], [place] [phone] Creatinine [Mass/Vol] 0.64 mg/dL Normal 0.58-0.96 [facility] Comment on above: Result Comment: Refe rence ranges for this patient's age group have not been established. These reference ranges reflect verified or established ranges for the adult population. Interpret these ranges with caution using the clinical context and additional reference resources. Performed By: #### F ANJUM Cowan IGA ####[facility] [place], [place] [phone] GFR/1.73 sq M predicted among non-blacks MDRD (S/P/Bld) [Vol rate/Area] 0.65 mL/min/{1.73_m2} Normal [facility] Comment on above: Result Comment: eGFR [...] Performed By: #### F ANJUM Cowan IGA ####[facility] [place], [place] [phone] Glucose [Mass/Vol] 108 mg/dL High 74-99 [facility] Comment on above: Result Comment: Refe rence ranges for this patient's age group have not been established. These reference ranges reflect verified or established ranges for the adult population. Interpret these ranges with caution using the clinical context and additional reference resources. The [place] Diabetes Association (ADA) provides guidance for cutoff [...] Standards of Medical Care in Diabetes 2016, [place] Diabetes Association. Diabetes Care. 2016.39(Suppl 1). Performed By: #### F ANJUM Cowan, IGA ####[facility] [place], [place] [phone] Potassium [Moles/Vol] 4.0 mmol/L Normal 3.7-5.1 [facility] Comment on above: Performed By: #### F ANJUM Cowan IGA ####[facility] [place], [place] [phone] Protein [Mass/Vol] 7.8 g/dL Normal 6.3-8.0 [facility] Comment on above: Result Comment: Refe rence ranges for this patient's age group have not been established. These reference ranges reflect verified or established ranges for the adult population. Interpret these ranges with caution using the clinical context and additional reference resources. Performed By: #### F ANJUM Cowan IGA ####[facility] [place], [place] [phone] Sodium [Moles/Vol] 138 mmol/L Normal 136-144 [facility] Comment on above: Result Comment: (NOT E) Reference ranges for this patient's age group have not been established. These reference ranges reflect verified or established ranges for the adult population. Interpret these ranges with caution using the clinical context and additional reference resources. Performed By: #### F ANJUM Cowan IGA ####[place] [id number] [place], [place] [phone] Urea nitrogen [Mass/Vol] 14 mg/dL Normal 5-18 [facility] Comment on above: Result Comment: Refe rence ranges were not locally established for this patient's age group. The normal values are based on the following source: Urea/BUN (package insert v7.0 [place]). [facility], [place], [place], March 2015. Performed By: #### F ANJUM Cowan, IGA ####[place] [id number] [place], [place] [phone] Endomysial IgA Abson 019 Endomysial IgA Abs <1:10 Normal <1:10 [facility] [facility] Comment on above: Result Comment: Refe rence Range: Negative < 1:10 Dilution IgA endomysial antibody is a highly sensitive and specific marker for celiac disease in patients with a normal IgA and on a normal diet. Levels reflect the adherence to gluten free diet. Performed By: #### A MYL, CRP, LIPA, VITD, ENDOMY, GLIIGA, TGIGA #### [facility] [address], [place] [address] Free T4on 10-27-2018 Free T4 [Mass/Vol] 1.3 ng/dL Normal 0.8-1.5 [facility] Comment on above: Performed By: #### F T4, WSR, IGA ####[facility], [place] [phone] Gliad Deamidated IgAon 10-27 Gliad IgA Ab 11 Units Normal <20 [facility] Comment on above: Result Comment: Nega tive : < 20 Units Weak Positive : 20 - 30 Units Moderate Pos to Strong Pos: >30 Units The following results were obtained with the [employer] QUANTA Lite Gliadin IgA MIKE. Gliadin IgA values obtained with different manufacturers' assay methods may not be used interchangeably. The magnitude of the reported IgA levels cannot be correlated to an endpoint titer. Performed By: #### A MYL, CRP, LIPA, VITD, ENDOMY, GLIIGA, TGIGA #### [facility] [address] [place] [id number] HISTORY PHYSICALon 9 HISTORY PHYSICAL HNO ID: [id number] Author: Shea Ngo) MD Yandel Service: ? [...] labwork or ultrasounds were completed. Mostly just LOWERATOR OPERATOR that they saw started medications. Bowel [...] 2.39) based on CDC (Girls, 2-20 Years) [id number] data using vitals from 10/27/2018.)(>99 %ile (Z= [...] Follow up in 6 weeks or sooner dwaynen Shea Thomson MD Pediatric Gastroenterology Staff [facility] CC: Maria Elena Lara, FORESTRY SUPPORT SPECIALIST-C [address] [place] [phone] Normal [facility] IgAon 10-27-2018 IgA [Mass/Vol] 321 mg/dL Normal 78-391 [facility] Comment on above: Performed By: #### F T4, WSR, IGA ####[facility] [address] [place], [place] [phone] Lipaseon 10-27-2018 Lipase [Catalytic activity/Vol] 20 U/L Normal 16-61 [facility] Comment on above: Result Comment: (NOT E) Reference ranges for this patient's age group have not been established. These reference ranges reflect verified or established ranges for the adult population. Interpret these ranges with caution using the clinical context and additional reference resources. Performed By: #### A MYL, CRP, LIPA, VITD, ENDOMY, GLIIGA, TGIGA #### [facility] [address] [place], [place] [address] Sed Rate Westergrenon 2018 Sed Rate Westergren 27 mm/hr High 0-20 [facility] Comment on above: Performed By: #### F T4, WSR, IGA ####[facility] [place], [place] [phone] TSHon 10-27-2018 TSH Qn 3.470 uU/mL Normal 0.510-4.300 [facility] Comment on above: Result Comment: Refe rence ranges were not locally established for this patient's age group. The normal values are based on the following source: Kimberly Ferguson V. Reference Ranges for Adults and Children: Pre-analytical Considerations. [facility] Performed By: #### F T4, WSR, IGA ####[facility], [place] [phone] Transglutaminase IgAon 10-27 Transglutaminase IgA 3 Units Normal <20 [facility] Comment on above: Result Comment: Nega tive : < 20 Units Weak Positive : 20 - 30 Units Moderate Pos to Strong Pos: >30 Units The following results were obtained with the [employer] QUANTA Lite h-tTG IgA MIKE. h-tTG IgA values obtained with different manufacturers' assay methods may not be used interchangeably. The magnitude of the reported IgA levels cannot be correlated to an endpoint titer. Performed By: #### A MYL, CRP, LIPA, VITD, ENDOMY, GLIIGA, TGIGA ####[facility], [place] [phone] Vitamin D 25 Hydroxyon 10-27 Vitamin D 25 Hydroxy 15.8 ng/mL Low 31.0-80.0 [facility] Comment on above: Result Comment: Clas sification of 25 [place] Vitamin D status: Insufficiency/Moderate Deficiency: < or = 30 ng/mL Sufficiency/Optimal Levels: 31 to 80 ng/mL Toxicity: > 100 ng/mL Test performed by chemiluminescent immunoassay. Performed By: #### A MYL, CRP, LIPA, VITD, ENDOMY, GLIIGA, TGIGA #### [facility] [address], [place] [address] Message - General Officeon 0 08-07-2018 Message [...] they revieved a voicemail. Contacted per at [phone] and advised of above. Normal [facility] Vital Signs Date Time Vital Sign Value Performing Clinician Facility 09-10-2024 14:23-0400 Body height 165.1 cm Lori Rao MD Work Phone: [facility] 09-10-2024 14:23-0400 Body mass index (BMI) [Ratio] 40.27 kg/m2 Lori Rao MD Work Phone: [facility] 09-10-2024 14:23-0400 Body temperature 98.29 [degF] Lori Rao MD Work Phone: [facility] 09-10-2024 14:23-0400 Body weight 109.77 kg Lori Rao MD Work Phone: [facility] 09-10-2024 14:23-0400 Diastolic blood pressure 67 mm[Hg] Lori Rao MD Work Phone: [facility] 09-10-2024 14:23-0400 Heart rate 112 /min Lori Rao MD Work Phone: [facility] 09-10-2024 14:23-0400 Systolic blood pressure 93 mm[Hg] Lori Rao MD Work Phone: [facility] 09-09-2024 13:27-0400 Body weight 109.32 kg Dwaine Peraza NP Work Phone: [facility] 09-09-2024 13:27-0400 Diastolic blood pressure 64 mm[Hg] Dwaine Peraza FORESTRY SUPPORT SPECIALIST Work Phone: [facility] 09-09-2024 13:27-0400 Systolic blood pressure 106 mm[Hg] Dwaine Peraza FORESTRY SUPPORT SPECIALIST Work Phone: [facility] 09-04-2024 12:24-0400 Diastolic blood pressure 65 mm[Hg] Jorge Tellez MD Work Phone: [facility] 09-04-2024 12:24-0400 Heart rate 69 /min Jorge Tellez MD Work Phone: [facility] 09-04-2024 12:24-0400 Systolic blood pressure 98 mm[Hg] Jorge Tellez MD Work Phone: [facility] 08-26-2024 11:43-0400 Body weight 107.62 kg Yony Brittany DO Work Phone: [facility] 08-26-2024 11:43-0400 Diastolic blood pressure 62 mm[Hg] Yony Brittany DO Work Phone: [facility] 08-26-2024 11:43-0400 Systolic blood pressure 102 mm[Hg] Yony Brittany DO Work Phone: [facility] 07-30-2024 10:32-0400 Body height 167.6 cm Elvis Maria MD Work Phone: [facility] 07-30-2024 10:32-0400 Body mass index (BMI) [Ratio] 37.93 kg/m2 Elvis Maria MD Work Phone: [facility] 07-30-2024 10:32-0400 Body weight 106.59 kg Elvis Maria MD Work Phone: [facility] 07-30-2024 10:32-0400 Diastolic blood pressure 73 mm[Hg] Elvis Maria MD Work Phone: [facility] 07-30-2024 10:32-0400 Heart rate 86 /min Elvis Maria MD Work Phone: [facility] 07-30-2024 10:32-0400 Systolic blood pressure 116 mm[Hg] Elvis Maria MD Work Phone: [facility] 07-09-2024 10:06-0400 Body weight 104.24 kg Mimi REES Work Phone: [facility] 07-09-2024 10:06-0400 Diastolic blood pressure 78 mm[Hg] Mimi REES Work Phone: [facility] 07-09-2024 10:06-0400 Systolic blood pressure 120 mm[Hg] Mimi REES Work Phone: [facility] 04-23-2024 10:17-0500 Body weight 99.7 kg Yony Brittany DO Work Phone: [facility] 04-23-2024 10:17-0500 Diastolic blood pressure 70 mm[Hg] Yony Brittany DO Work Phone: [facility] 04-23-2024 10:17-0500 Systolic blood pressure 120 mm[Hg] Yony Brittany DO Work Phone: [facility] 10-25-2022 10:17-0400 Body temperature 98.06 [degF] Jose Duran [facility] 10-25-2022 10:17-0400 Diastolic blood pressure 80 mm[Hg] Jose Duran [facility] 10-25-2022 10:17-0400 Heart rate 94 /min Jose Duran [facility] 10-25-2022 10:17-0400 Respiratory rate 18 /min Jose Duran [facility] 10-25-2022 10:17-0400 SaO2% (BldA) [Mass fraction] 99 % Jose Duran [facility] 10-25-2022 10:17-0400 Systolic blood pressure 124 mm[Hg] Jose Roger [facility] 12-07-2021 19:19-0400 Body temperature 98.24 [degF] Kaylinn Dokken [facility] 12-07-2021 19:19-0400 Diastolic blood pressure 92 mm[Hg] Kaylinn Dokken [facility] 12-07-2021 19:19-0400 Heart rate 114 /min Kaylinn Dokken [facility] 12-07-2021 19:19-0400 Respiratory rate 16 /min Sdinn Dokken [facility] 12-07-2021 19:19-0400 SaO2% (BldA) [Mass fraction] 98 % Lynetten Dokken [facility] 12-07-2021 19:19-0400 Systolic blood pressure 143 mm[Hg] Kaylinn Dokken [facility] 12-06-2021 07:58-0400 Body temperature 98.06 [degF] Jose Roger [facility] 12-06-2021 07:58-0400 Diastolic blood pressure 80 mm[Hg] Jose Roger [facility] 12-06-2021 07:58-0400 Heart rate 86 /min Jose Duran [facility] 12-06-2021 07:58-0400 Respiratory rate 16 /min Jose Roger [facility] 12-06-2021 07:58-0400 SaO2% (BldA) [Mass fraction] 100 % Jose Duran [facility] 12-06-2021 07:58-0400 Systolic blood pressure 121 mm[Hg] Jose Roger [facility] Encounters Encounter Date Encounter Type Care Provider Facility Start: 09-15-2024 End: 09-15-2024 Bamboo flowsheet Mimi REES Work Phone: [facility] Start: 09-15-2024 End: 09-15-2024 Bamboo flowsheet Mimi REES Work Phone: [facility] Start: 09-10-2024 End: 09-10-[address] [facility] Start: 09-10-2024 End: 09-10-2024 Office consultation new/estab patient 60 min Lori Rao MD Work Phone: [facility] Comment on above: hydronephrosis during , antepartum, single or unspecified fetus (Primary Dx); Abnormal ultrasonic finding on screening of mother, antepartum Start: 09-10-2024 End: 09-10-2024 ambulatory LORINANCY RAO [facility] Start: 09-09-2024 End: 09-09-2024 Bamboo flowsheet Dwaine Peraza NP Work Phone: [facility] Start: 09-09-2024 End: 09-09-2024 Bamboo flowsheet Dwaine Peraza NP Work Phone: [facility] Start: 09-09-2024 End: 09-09-2024 Office outpatient visit 15 minutes Dwaine Peraza NP Work Phone: [facility] Comment on above: Third trimester preg [place]; 35 weeks gestation of ; with normal glucose tolerance test (GTT); supraventricular tachycardia Start: 09-09-2024 End: 09-09-2024 ambulatory DWAINE PERAZA Not Available Start: 09-04-2024 End: 09-04-2024 Office outpatient visit 25 minutes Jorge Tellez MD Work Phone: [facility] Comment on above: hydronephrosis during , antepartum, single or unspecified fetus (Primary Dx) Start: 09-04-2024 End: 09-04-2024 ambulatory JORGE DISLAHID [facility] Start: 09-04-2024 End: 09-04-2024 ambulatory YONY R [facility] Start: 08-26-2024 End: 08-26-2024 Bamboo flowsheet Yony Brittany DO Work Phone: [facility] Start: 08-26-2024 End: 08-26-2024 Bamboo flowsheet Yony Brittany DO Work Phone: [facility] Start: 08-26-2024 End: 08-26-2024 ambulatory YONY BRITTANY Not Available Start: 08-26-2024 End: 08-26-2024 Office outpatient visit 15 minutes Yony Brittany DO Work Phone: [facility] Comment on above: Third trimester preg [place]; 33 weeks gestation of Start: 08-17-2024 End: 08-17-2024 Telephone encounter Gabbi John RN Work Phone: [facility] Start: 08-05-2024 End: 08-05-2024 Telephone encounter Margarette Jessica RN [facility] Start: 07-30-2024 End: 07-30-2024 Office consultation new/estab patient 60 min Elvis Maria MD Work Phone: [facility] Comment on above: 29 weeks gestation o f (Primary Dx); Pyelectasis of fetus on ultrasound; hydronephrosis during , antepartum, single or unspecified fetus; Family history of congenital or genetic condition Start: 07-30-2024 End: 07-30-2024 ambulatory ELVIS MARIA [facility] Start: 07-30-2024 End: 07-30-2024 ambulatory YONY Bib [facility] Start: 07-22-2024 End: 07-23-2024 Lab Drop off Lino Hamilton [facility] Start: 07-22-2024 End: 07-23-2024 ambulatory Lino Hamilton Facility:[facility] Start: 07-09-2024 End: 07-09-2024 Bamboo flowsheet Mimi REES Work Phone: [facility] Start: 07-09-2024 End: 07-09-2024 Bamboo flowsheet Mimi REES Work Phone: [facility] Start: 07-09-2024 End: 07-09-2024 Office outpatient visit 15 minutes Mimi REES Work Phone: [facility] Comment on above: 26 weeks gestation o f ; Second trimester ; Diabetes mellitus screening Start: 07-09-2024 End: 07-09-2024 ambulatory MIMI LANZA Not Available Start: 06-29-2024 End: 06-29-2024 ambulatory MIMI LANZA Not Available Start: 05-20-2024 End: 05-20-2024 Bamboo flowsheet Mimi RESE Work Phone: [facility] Start: 05-20-2024 End: 05-28-2024 Bamboo flowsheet Mimi REES Work Phone: [facility] Start: 05-20-2024 End: 05-28-2024 Clinisync Result Encounter Mimi REES Work Phone: [facility] External Department Unsolicited Start: 05-20-2024 End: 05-21-2024 External Result Encounter Mimi REES Work Phone: [facility] External Department Unsolicited Start: 05-20-2024 End: 05-20-2024 [...] 03-12-2024 End: 03-12-2024 flow sheet Sarah Mckeon FORESTRY SUPPORT SPECIALIST Work Phone: [facility] Comment on above: GA: [id number] Start: 10-31-2022 End: 10-31-2022 Patient encounter procedure Ivelisse Leger [facility] Start: 10-25-2022 End: 10-25-2022 Emergency department patient visit Jose Duran [facility] Start: 12-07-2021 End: 12-07-2021 Emergency department patient visit Virginie Anthony [facility] Start: 12-06-2021 End: 12-06-2021 Emergency department patient visit Jose Duran [facility] Start: 05-08-2021 End: 08-06-2021 Patient encounter procedure Kwasi Pop III [facility] Start: 08-28-2018 Patient encounter procedure Maria Elena Patino madyson Facility:CD:[id number] Start: 08-06-2018 End: 08-07-2018 Patient encounter procedure Maria Elena Lara Facility:CD: [id number] Procedures Date Procedure Procedure Detail Performing Clinician Start: 08-26-2024 Urnls dip stick/tabl et rgnt non-auto w/o micrscp Yony Soto DO Work Phone: Start: 07-09-2024 Urnls dip stick/tabl et rgnt non-auto w/o micrscp Mimi REES Work Phone: Start: 05-20-2024 RECURRENT VAGINITIS (HTRX) Mimi REES Work Phone: Start: 05-20-2024 Urnls dip stick/tabl et rgnt non-auto w/o micrscp Mimi REES Work Phone: Start: 01-22-2025 IGP,APTIMA HPV,AGE GDLN Mimi REES Work Phone: Start: 05-20-2024 Microscopic observat ion [Identifier] in Cervix by Cyto stain Elvis Maria MD Work Phone: Start: 05-18-2024 AFP, SERUM, OPEN SPI NA BIFIDA Yony Brittany DO Work Phone: Start: 04-23-2024 Urnls dip stick/tabl et rgnt non-auto w/o micrscp Yony Brittany DO Work Phone: Start: 04-13-2024 MLR HEMOGLOBIN A1C Core y Brittany DO Work Phone: Start: 04-29-2003 bilateral tubes in ears Kwasi Pop III Plan of Treatment Date Care Activity Detail Author Start: 05-20-2027 Screening for malignant neoplasm of cervix Pap Smear [facility] Start: 09-10-2025 Adult BMI Screening Adult BMI Screen ing [facility] Start: 09-10-2025 Tobacco Screening Tobacco Screening [facility] Start: 09-04-2025 Tobacco Screening Tobacco Screening [facility] Start: 07-30-2025 Adult BMI Screening Adult BMI Screen ing [facility] Start: 07-30-2025 Tobacco Screening Tobacco Screening [facility] Start: 07-30-2025 End: 07-30-2025 Unlisted Lab Test Unlisted Lab Test Lab Routine Pyelectasis of fetus on ultrasound Expected: 07/30/2025 (Approximate), Expires: 07/30/2025 [employer] Work Phone: Comment on above: Expected: 07/30/2025 (Approximate), Expires: 07/30/2025 Start: 07-30-2025 End: 07-30-2025 US MFM with or without consult US MFM with or without consult Imaging Routine Pyelectasis of fetus on ultrasound Expected: 07/30/2025 (Approximate), [facility] on above: Expected: 07/30/2025 (Approximate), Expires: 07/30/2025 Start: 12-28-2024 Influenza vaccination P [facility] Start: 10-05-2024 End: 10-05-2024 Patient encounter procedure 10/05/2024 3:15 PM EDT Appointment [facility] [place] [phone] [facility] [address] [address] [place] [address] [facility] [place] Start: 09-15-2024 End: 09-15-2024 Patient encounter procedure 09/15/2024 10:20 AM EDT Routine [facility] [address] [place] [address] Mimi Lanza PA [address] [place] [address] [facility] Start: 09-11-2024 End: 09-11-2024 Patient encounter procedure 09/11/2024 8:00 AM EDT Office Visit [facility] [address] [place] [address] Evelyn Fleming MD [address] [place] [address] [facility] Start: 09-10-2024 End: 09-10-2024 Patient encounter procedure [facility] Start: 09-09-2024 End: 03-12-2025 US biophysical profile w non stress test US biophysical profile w non stress test Imaging Routine supraventricular tachycardia Expected: 09/09/2024 (Approximate), Expires: 03/12/2025 [facility] Comment on above: Expected: 09/09/2024 (Approximate), Expires: 03/12/2025 Start: 09-09-2024 End: 09-09-2024 Patient encounter procedure [facility] Comment on above: Arrived Start: 08-31-2024 End: 08-31-2024 Telemedicine consultation with patient 08/31/2024 2:00 PM EDT Telemedicine [facility] [address] [place] [address] Elvis Maria MD [address] [facility], [address] [place] [address], [place] [address] [facility] Start: 08-28-2024 End: 08-28-2024 Patient encounter procedure [facility] [place] Start: 08-10-2024 End: 08-10-2024 Patient encounter procedure 08/10/2024 10:10 AM EDT Rout[facility] [address] [facility] [address] [address] Yony Soto DO [address] [place], [place] [phone] [facility] Start: 07-09-2024 End: 07-09-2025 CBC panel - Blood by Automated count CBC Lab Routine Diabetes mellitus screening Expected: 07/09/2024 (Approximate), Expires: 07/09/2025 [facility] Work Phone: Comment on above: Expected: 07/09/2024 (Approximate), Expires: 07/09/2025 Start: 07-09-2024 End: 07-09-2025 Measurement of glucose 1 hour after glucose challenge for glucose tolerance test Glucose tolerance, 1 hour Lab Routine Diabetes mellitus screening Expected: 07/09/2024 (Approximate), Expires: 07/09/2025 [facility] Comment on above: Expected: 07/09/2024 (Approximate), Expires: 07/09/2025 Start: 07-09-2024 End: 07-09-2024 Patient encounter procedure 07/09/2024 10:30 AM EDT Routine [facility] [address] [place] [address] Mimi Lanza PA [address] [place], [place] [phone] Arrived [facility] Comment on above: Arrived Start: 06-18-2024 End: 06-18-2024 Patient encounter procedure 06/18/2024 1:30 PM EST Routine [facility] [address] [place] [place] [phone] Mimi Lanza PA [address] [place] [address] [place] [address] [facility] Start: 06-02-2024 End: 06-02-2024 Professional / ancillary services management 06/02/2024 2:30 PM EST Ancillary Procedure [facility] [address] [place] [place] [phone] [facility] Start: 05-20-2024 End: 07-18-2024 Alpha fetoprotein, maternal Alpha fetoprotein, maternal Lab Routine Screening, , for anatomic survey Expected: 05/20/2024 (Approximate), Expires: 07/18/2024 [facility] Comment on above: Expected: 05/20/2024 (Approximate), Expires: 07/18/2024 Start: 05-20-2024 End: 05-20-2025 US for US OB 14+ weeks anatomy scan Imaging Routine Screening, , for anatomic survey Expected: 05/20/2024, Expires: 05/20/2025 [facility] Comment on above: Expected: 05/20/2024 , Expires: 05/20/2025 Start: 05-20-2024 End: 05-20-2024 Patient encounter procedure 05/20/2024 10:30 AM EST Routine [facility] [address] [place] [place] [phone] Mimi Lanza PA [address] [place] [address] [place] [address] [facility] Start: 04-23-2024 End: 05-24-2024 Alpha fetoprotein, maternal Alpha fetoprotein, maternal Lab Routine 15 weeks gestation of Expected: 04/23/2024 (Approximate), Expires: 05/24/2024 [facility] Work Phone: Comment on above: Expected: 04/23/2024 (Approximate), Expires: 05/24/2024 Start: 04-23-2024 End: 04-23-2024 Patient encounter procedure 04/23/2024 9:30 AM EST Routine [facility] [address] [place] [place] [phone] Yony Soto, DO [address] [facility] [place] [address] [facility] Start: 04-15-2024 End: 04-15-2024 Professional / ancillary services management 04/15/2024 11:00 AM EST Ancillary Procedure [facility] [address] [place] [place] [phone] [facility] Start: 04-11-2024 End: 03-12-2025 ABO/Rh ABO/Rh Lab Routine Encounter for supervision of normal first in first trimester 9 weeks gestation of Expected: 04/11/2024 (Approximate), Expires: 03/12/2025 [facility] Work Phone: Comment on above: Expected: 04/11/2024 (Approximate), Expires: 03/12/2025 Start: 04-11-2024 End: 03-12-2025 Antibody screen Antibody screen Lab Routine Encounter for supervision of normal first in first trimester 9 weeks gestation of Expected: 04/11/2024 (Approximate), Expires: 03/12/2025 [facility] Comment on above: Expected: 04/11/2024 (Approximate), Expires: 03/12/2025 Start: 04-11-2024 End: 03-12-2025 Bacteria identified in Urine by Culture Urine culture Microbiology Routine Encounter for supervision of normal first in first trimester 9 weeks gestation of Expected: 04/11/2024 (Approximate), Expires: 03/12/2025 [facility] Comment on above: Expected: 04/11/2024 (Approximate), Expires: 03/12/2025 Start: 04-11-2024 End: 03-12-2025 CBC W Auto Differential panel - Blood CBC and differential Lab Routine Encounter for supervision of normal first in first trimester 9 weeks gestation of Expected: 04/11/2024 (Approximate), Expires: 03/12/2025 [facility] Comment on above: Expected: 04/11/2024 (Approximate), Expires: 03/12/2025 Start: 04-11-2024 End: 03-12-2025 Drugs of abuse panel - Urine by Screen method Rapid drug screen, urine Lab Routine Encounter for supervision of normal first in first trimester 9 weeks gestation of Expected: 04/11/2024 (Approximate), Expires: 03/12/2025 [facility] Comment on above: Expected: 04/11/2024 (Approximate), Expires: 03/12/2025 Start: 04-11-2024 End: 03-12-2025 Hemoglobin A1c/Hemoglobin.total in Blood Hemoglobin A1c Lab Routine Encounter for supervision of normal first in first trimester 9 weeks gestation of Expected: 04/11/2024 (Approximate), Expires: 03/12/2025 [facility] Comment on above: Expected: 04/11/2024 (Approximate), Expires: 03/12/2025 Start: 04-11-2024 End: 03-12-2025 Hepatitis B virus surface Ag [Presence] in Serum or Plasma by Immunoassay Hepatitis B surface Ag Lab Routine Encounter for supervision of normal first in first trimester 9 weeks gestation of Expected: 04/11/2024 (Approximate), Expires: 03/12/2025 [facility] Comment on above: Expected: 04/11/2024 (Approximate), Expires: 03/12/2025 Start: 04-11-2024 End: 03-12-2025 HIV-1/HIV-2 antigen/antibody combination immunoassay HIV-1 and HIV-2 antibodies Lab Routine Encounter for supervision of normal first in first trimester 9 weeks gestation of Expected: 04/11/2024 (Approximate), Expires: 03/12/2025 [facility] Comment on above: Expected: 04/11/2024 (Approximate), Expires: 03/12/2025 Start: 04-11-2024 End: 03-12-2025 Reagin Ab [Presence] in Serum by RPR RPR Lab Routine Encounter for supervision of normal first in first trimester 9 weeks gestation of Expected: 04/11/2024 (Approximate), Expires: 03/12/2025 [facility] Comment on above: Expected: 04/11/2024 (Approximate), Expires: 03/12/2025 Start: 04-11-2024 End: 03-12-2025 Rubella IgG Rubella IgG Lab Routine Encounter for supervision of normal first in first trimester 9 weeks gestation of Expected: 04/11/2024 (Approximate), Expires: 03/12/2025 [facility] Comment on above: Expected: 04/11/2024 (Approximate), Expires: 03/12/2025 Start: 04-02-2024 End: 04-02-2024 ambulatory 04/02/2024 1:40 PM EST Initial [facility] [address] [address] Sarah Mckeon NP [address] [place] [address] [facility] Start: 03-23-2024 End: 03-23-2024 Professional / ancillary services management 03/23/2024 4:00 PM EST Ancillary Procedure [facility] [address] [address] [facility] Start: 2021 DTaP,Tdap and Td Vaccines (2 - Tdap) DTaP,Tdap and Td Vaccines (2 - Tdap) [facility] Start: 01-15-2020 Adult BMI Follow Up Plan Adult BMI Follow Up Plan [facility] Start: 01-15-2020 Adult BMI Screening Adult BMI Screen ing [facility] Start: 2014 Depression Screening Depression Scre ening [facility] Cytology Cervical or vaginal smear or scraping study Pap Smear Pathology and Cytology Routine Well woman exam with routine gynecological exam Ordered: 05/20/2024 [facility] Work Phone: Comment on above: Ordered: 05/20/2024 Hemoglobin A1c/Hemoglobin.total in Blood Hemoglobin A1c Lab Routine with normal glucose tolerance test (GTT) Ordered: 09/09/2024 [facility] Work Phone: Comment on above: Ordered: 09/09/2024 Immunizations Immunization Date Immunization Notes Care Provider Raffy bone 04-17-2021 meningococcal B vaccine, fully recombinant Jose Roger [facility] 02-24-2021 meningococcal ACWY vaccine, unspecified formulation Jose Roger [facility] Comment on above: Result Comment: 2021: VFC STOCK USED 02-24-2021 meningococcal B vaccine, fully recombinant Jose Roger [facility] Comment on above: Result Comment: 2021: C STOCK BORROWED 11-12-2016 hepatitis A vaccine, adult dosage Kwasi Pop III [facility] 11-12-2016 HPV, unspecified formulation Kwasi Pop III [facility] 12-16-2015 hepatitis A vaccine, adult dosage Kwasi Pop III [facility] 12-16-2015 HPV, unspecified formulation Kwasi Pop III [facility] 12-16-2015 meningococcal ACWY vaccine, unspecified formulation Kwasi Pop III [facility] 12-16-2015 tetanus and diphther ia toxoids, adsorbed, preservative free, for adult use (2 Lf of tetanus toxoid and 2 Lf of diphtheria toxoid) Kwasi Pop III [facility] 12-31-2006 diphtheria, tetanus toxoids and acellular pertussis vaccine Jose Roger [facility] 12-31-2006 measles, mumps and rubella virus vaccine Kwasi Pop III [facility] 12-31-2006 poliovirus vaccine, unspecified formulation Kwasi Pop III [facility] 12-31-2006 tetanus toxoid, reduced diphtheria toxoid, and acellular pertussis vaccine, adsorbed Kwasi Pop III [facility] 01-17-2004 influenza virus vaccine, unspecified formulation Jose Duran [facility] 01-17-2004 pneumococcal conjuga te vaccine, 13 valent Kwasi Pop III [facility] 08-18-2003 DTaP, unspecified formulation Jose Orger [facility] 08-18-2003 haemophilus influenz ae type b vaccine, HbOC conjugate Kwasi Pop III [facility] 04-27-2003 DTaP, unspecified formulation Jose Duran [facility] 04-27-2003 haemophilus influenz ae type b vaccine, HbOC conjugate Kwasi Pop III [facility] 04-27-2003 hepatitis B vaccine, adult dosage Kwasi Pop III [facility] 04-27-2003 influenza virus vaccine, unspecified formulation Jose Duran [facility] 04-27-2003 pneumococcal conjuga te vaccine, 13 valent Kwasi Pop III [facility] 04-27-2003 poliovirus vaccine, unspecified formulation Kwasi Pop III [facility] 04-27-2003 tetanus toxoid, reduced diphtheria toxoid, and acellular pertussis vaccine, adsorbed Kwasi Pop III [facility] 01-29-2003 DTaP, unspecified formulation Jose Duran [facility] 01-29-2003 haemophilus influenz ae type b vaccine, HbOC conjugate Kwasi Pop III [facility] 01-29-2003 hepatitis B vaccine, adult dosage Kwasi Pop III [facility] 01-29-2003 measles, mumps and rubella virus vaccine Kwasi Pop III [facility] 01-29-2003 poliovirus vaccine, unspecified formulation Kwasi Pop III [facility] 01-29-2003 tetanus toxoid, reduced diphtheria toxoid, and acellular pertussis vaccine, adsorbed Kwasi Pop III [facility] 01-29-2003 varicella virus vaccine Kwasi Pop III [facility] 2002 DTaP, unspecified formulation Jose Duran [facility] 2002 haemophilus influenz ae type b vaccine, HbOC conjugate Kwasi Pop III [facility] 2002 hepatitis B vaccine, adult dosage Kwasi Pop III [facility] 2002 pneumococcal conjuga te vaccine, 13 valent Kwasi Pop III [facility] 2002 poliovirus vaccine, unspecified formulation Kwasi Pop III [facility] 2002 tetanus toxoid, reduced diphtheria toxoid, and acellular pertussis vaccine, adsorbed Kwasi Pop III [facility] 2002 hepatitis B vaccine, adult dosage Kwasi Pop III [facility] NEGATED: Highlighted row has not occurred!08-28-2018 influenza virus vaccine, unspecified formulation Kwasi Pop III [facility] Payers Date Payer Category Payer Unknown [id number] 2024 Medicaid (Managed Care) [facility] MEDICAID [id number] 2024 Medicaid HMO [id number] 2024 Medicaid [id number] 2024 Unknown [id number] 2022 Unknown [id number] 2018 Unknown [id number] 2002 Unknown [id number] 2.16.840.1.946763.3.579.2. 727 2002 Unknown [id number] 2.16.840.1.105720.3.579.2. 727 2002 Unknown [id number] 2.16.840.1.764682.3.579.2. 1259 2002 Unknown [id number] 2.16.840.1.999946.3.579.2. 1259 2002 Unknown [id number] 2.16.840.1.017151.3.579.2. 1259 2002 Unknown [id number] 2.16.840.1.612991.3.579.2. 1259 2002 Unknown [id number] 2.16.840.1.329684.3.579.2. 1259 2002 Unknown [id number] 2.16.840.1.962792.3.579.2. 1259 2002 Unknown [id number] 2.16.840.1.855623.3.579.2. 1286 2002 Unknown [id number] 2.16.840.1.173921.3.579.2. 1286 2002 Unknown [id number] 2.16.840.1.426486.3.579.2. 1286 2002 Unknown [id number] 2.16.840.1.602963.3.579.2. 1286 2002 Unknown [id number] 2.16.840.1.608114.3.579.2. 1286 2002 Unknown [id number] 2.16.840.1.159958.3.579.2. 1286 1978 Unknown [id number] 2.16.840.1.150865.3.579.2. 727 1978 Unknown [id number] 2.16.840.1.590151.3.579.2. 727 Social History Date Type Detail Facility Start: 06-15-2021 End: 03-12-2024 Tobacco smoking status Never smoked tobacco (finding) [facility] Comment on above: denies Denies Tobacco smoking status Never [facility] Comment on above: denies Denies Start: 03-12-2024 End: 07-30-2024 Sex Assigned At Female [facility] Start: 03-12-2024 End: 07-30-2024 Tobacco use and exposure Smokeless tobacco non-user [facility] Start: 03-12-2024 End: 09-09-2024 Alcoholic beverage intake Ex-drinker (finding) [facility] Start: 03-12-2024 End: 07-30-2024 History of Social function [facility] Within the last year , have you been afraid of your partner or ex-partner? No [facility] Are you now , , , , never or living with a partner? Living with partner [facility] How often to you hav e a drink containing alcohol? Monthly or less [facility] How many standard dr inks containing alcohol do you have on a [...] [facility] Start: 01-22-[address] [facility] Start: 2002 Sex assigned at Not on file [facility] Sexual Orientation [facility] Start: 08-10-2009 End: 07-10-2024 Sex Female (finding) [facility] Start: 07-30-2024 End: 09-10-2024 Alcoholic beverage intake Lifetime non-drinker (finding) [facility] Functional Status Date Assessment Result Facility 10-25-2022 Functional Status N/A [facility] 12-07-2021 Functional Status N/A [facility] 12-06-2021 Functional Status N/A [facility] Clinical Notes 07-05-2021 to 09-10-2024 Lori Rao MD - 09/10/2024 2:30 PM EDTFrieda Sanders CMA - 09/10/2024 2:30 PM EDTPatibob Peraza NP - 09/09/2024 1:00 PM EDTSnancy Bhatti RN - 09/04/2024 12:30 PM EDT Note Date & Type Note Facility 09-10-2024 History of Presen t illness Narrative Referring Physician: Elvis Maria Md [address], [address] [place] [id number] HPI April Puente is a 24 y.o. female that was referred to the pediatric urology clinic for hydronephrosis discovered on ultrasounds. The condition was first noted to be present on ultrasound performed at 28 weeks gestation due to an [facility] referral for cardiac concerns (OB couldn't get good picture). Since that time she has been told that the heart is fine. The fetus is a female fetus. The parents do wish to know [...] Vitals: BP 93/67 Pulse 112 Temp 36.8 C (98.3 F) Ht 165.1 cm (5' 5 ) Wt 109.8 kg (242 lb) LMP 01/08/2024 BMI 40.27 kg/m Physical Exam: General-no acute distress. Healthy in [...] possible etiologies for hydronephrosis in a female infant which included bladder outlet obstruction, congenital megaureters, ureterovesical obstruction, ureteropelvic junction obstruction, vesicoureteral reflux, and transient hydronephrosis. In the patient's recent ultrasounds that I reviewed, bilateral hydronephrosis was present and the parenchyma of the right kidney appears to be possibly thinned, while the left parenchyma appears to be of normal thickness. Ms. Puente is planning to deliver at [facility]. At this time I would recommend getting a renal ultrasound after delivery. If significant hydronephrosis and/or hydroureter is present on the [...] serial renal ultrasounds for further evaluation. The should be discharged home on amoxicillin prophylaxis until the work up for hydronephrosis has been completed. Lori Rao MD Total time spent was 60 minutes: Preparing to see the patient (e.g., review of tests) Obtaining and/or reviewing separately obtained history Performing a medically appropriate examination and/or evaluation Counseling and educating the patient/family/caregiver Referring and communicating with other health care coordination manager (not separately reported) Documenting clinical information in the electronic or other health record Independently interpreting results (not separately reported) and communicating results to the patient/family/caregiver Reason for visit: Hydronephrosis of right kidney [...] no records available documented in this encounter [facility] 09-10-2024 Instructions Lori Rao MD - 09/10/2024 2:30 PM EDT The possible causes of hydronephrosis in an include bladder outlet obstruction, ureteropelvic junction obstruction [...] we will need to be performed at [facility]. I would also recommend that your child [...] has been delivered. documented in this encounter [facility] 09-09-2024 History of Presen t illness Narrative Reason for Appointment: Patient ID: [...] nursing note reviewed. Exam conducted with a route aide present. Vitals: Estimated body mass index is [...] will obtain GBS cultures and sign LARC. Documented by Dwaine Peraza NP on behalf of: Dwaine Peraza NP documented in this encounter [facility] 09-04-2024 History of Presen t illness Narrative Headache/epigastric pain/blurry vision/swelling? no Cramping/contractions? no Abnormal vaginal discharge? no Spotting or vaginal bleeding? no Loss or gush of fluid like your water may have broken? no Recent ER visits or hospitalizations? no Any concerns that you would like me to mention to the provider today? no REASON FOR TELEMEDICINE VIDEO OFFICE VISIT: intermittent premature atrial contractions. HISTORY OF PRESENT ILLNESS: April Puente is a pleasant 24 y.o. G One P0 at 34w2d due on Estimated Date of Delivery: 10/14/24 . has been complicated with Bilateral pyelectasis with right kidney showing grade 1 hydronephrosis which is stable. Kidney with stable pyelectasis. Normal amniotic fluid index. Normal bladder. No evidence of bladder outlet obstruction. Female fetus. New onset of mild polyhydramnios. Patient discouraged daily candy intake. Intermittent Premature atrial contractions. No evidence of hydrops. Normal sinus rhythm seen between PACs. PACs I will discuss with the patient that irregular cardiac rhythms are the most common cause of referral for arrhythmias. In her case, the fetus has premature atrial contractions which are due to atrial ectopic beats which occur most commonly in the late second trimester through term and is usually benign. PACs can either be blocked or conducted. PACs are associated with congenital heart disease up to 1%. In her case, echocardiography shows no anatomical abnormalities. The greatest risk of premature atrial contraction is conversion into supraventricular tachycardia which presents itself as heart rate of 200 or more. Therefore, I informed the patient that the patient needs to see her OB provider once a week to have heart tones evaluated via Doptone. In the absence of tachycardia, the patient should continue her and deliver by 39 weeks via elective repeat section per the patient's choice. These arrhythmias are usually benign and do not require further treatment. Therefore, the should be continued with weekly Doptone and serial growth ultrasounds every four weeks. The patient states that she is already scheduled for delivery at 39 weeks' gestation. Currently the patient has no complaints. The patient denies nausea, vomiting, abdominal pain, vaginal bleeding, SOB or chest pain. Patient Active Problem List Diagnosis Pyelectasis of fetus on ultrasound hydronephrosis in , antepartum condition ALLERGIES: No Known Allergies CURRENT MEDICATIONS: Current Outpatient Medications: no115/iron/folic acid ( 19 ORAL), Take 1 tablet by mouth in the morning., Disp: , Rfl: History reviewed. No pertinent past medical history. REVIEW OF SYSTEMS: Head and Neck: Negative for any dizziness and headaches. Cardiovascular and Respiratory System: Denies any chest pain, shortness of breath, and coughing. Abdominal and System: Denies any abdominal pain, nausea, vomiting, vaginal bleeding, and vaginal discharge REVIEW OF ULTRASOUND. Pertinent Ultrasound findings are see report. PHYSICAL EXAMINATION: BP 98/65 Pulse 69 LMP 01/08/2024 . Gravid abdomen, Respirations not labored. Normal gait well oriented in time place and person. RECOMMENDATION: Follow-up in 2 weeks for rhythm check at [facility] office. 2. Growth ultrasounds in 4 weeks at [facility] office 3. Continue testing at her OB office. 4. Benign intermittent PACs were seen. Weekly hand-held Doppler to rule out supraventricular tachycardia at her OB office is suggested. 5. Patient is still low risk and can be delivered at her local hospital at 39 weeks gestation. 6. Patient is scheduled to see pediatric Urology in 1 week. Thank you for allowing me to participate in April Kavita Art care. If there are any questions, please do not hesitate to call me. Sincerely, JORGE TELLEZ MD Video Visit via Real-time Synchronous Audiovisual Provider Location: [facility]- MEDICINE AT [address] [phone] Patient Location: Other [facility] office [place]. Patient Location [place] D[place]: None Video Visit Consent Statement: I discussed risks, benefits, and alternatives of a real-time synchronous audiovisual consultation with the patient (and any accompanying persons) including the risks that the patient's personal health details and medical records will be discussed over real-time, synchronous, interactive video/audio/telecommunication technology, the visit will not be recorded without the express consent of both the provider and the patient, and that there are some limitations compared to [id number] evaluations. We elected to proceed. documented in this encounter [facility] 08-26-2024 History of Presen t illness Narrative Reason for Appointment: Patient ID: [...] nursing note reviewed. Exam conducted with a route aide present. Vitals: Estimated body mass index is 38.58 kg/m as calculated from the following: Height as of 08/22/18: 5' 6 . Weight as of 08/22/18: 239 lb. BP: 102/62 Patient's last menstrual period was 01/08/2024. ASSESSMENT & PLAN ICD-10-CM 1. Third trimester Z34.93 POCT urinalysis dipstick manually resulted 2. 33 weeks gestation of Z3A.33 Return OB: Patient presents today for a routine obstetrics appointment. Patient is currently 33w0d . Patient states she is doing well but has complaints of being tired due to current . Patient has verbalizes frequent movement. labor precautions was discussed/given and patient was instructed to perform kick counts three times a day. Orders Placed This Encounter Procedures POCT urinalysis dipstick manually resulted Follow Up: Patient is to return to office in 2 week for routine OB appointment. Documented by Kaya Hernandez LPN on behalf of: Yony Soto DO documented in this encounter [facility] 08-17-2024 Miscellaneous Notes LVM to call office to schedule from referral. CLS documented in this encounter [facility] 08-17-2024 Telephone encounter Note LVM to call office to schedule from referral. [facility]: 08-05-2024 Miscellaneous Notes LVM with genetic testing results. Results came back low risk. Left callback number. documented in this encounter [facility] 08-05-2024 Telephone encounter Note LVM with genetic testing results. Results came back low risk. Left callback number. [facility] 07-30-2024 History of Presen t illness Narrative Video Visit via Real-time Synchronous Audiovisual Provider Location: [facility]ICINE AT [address] [phone] Patient Location: [facility] office Patient Location [place]: None Video Visit Consent Statement: I discussed risks, benefits, and alternatives of a real-time synchronous audiovisual consultation with the patient (and any accompanying persons) including the risks that the patient's personal health details and medical records will be discussed over real-time, synchronous, interactive video/audio/telecommunication technology, the visit will not be recorded without the express consent of both the provider and the patient, and that there are some limitations compared to [id number] evaluations. We elected to proceed. [facility] Maternal- Medicine Consult Note Reason For Consult: add on hydronephrosis HPI: April Puente is a 24 y.o. at 29w1d with Estimated Date of Delivery: 10/14/24 based who presented for consultation from Yony Veras DO regarding Chief Complaint Patient presents with add on pyelectasis, hydronephrosis right kidney I have reviewed the pertinent available patient records including but not limited to notes, labs and images She reports that she is doing well. She reports normal movements and she denies leakage of fluid, contractions or vaginal bleeding. She denies fever, chills, nausea, vomiting, shortness of breath, chest pain, headache, blurry vision, right upper quadrant pain or edema. Complications: Grade I Hydronephrosis of the right kidney visualized with the renal pelvis measuring 0.95 cm. No hydroureter appreciated. Left kidney appears normal. Normal amniotic fluid. Maternal uncle had to have his kidney removed at Aunt daughter has DiGeorge syndrome Autism both nephews Distant nephew with a hypoplastic left heart. Left ventricle appears normal today. Cell free DNA: has opted out Denies smoking, alcohol or other substance use in Recent hospitalization: no Review of systems: Review of systems was noncontributory OB Hx: OB History Para Term AB Living 1 SAB IAB Ectopic Multiple Live Births # Outcome Date GA Lbr [place]/2nd Weight Sex Type Anes PTL Lv 1 Current PMH: History reviewed. No pertinent past medical history. PSHIST: History reviewed. No pertinent surgical history. Allergies: No Known Allergies Meds: Current Outpatient Medications: no115/iron/folic acid ( 19 ORAL), Take 1 tablet by mouth in the morning., Disp: , Rfl: SH: Social History Socioeconomic History Marital status: Single Spouse name: Not on file Number of children: Not on file Years of education: Not on file Highest education level: Not on file Occupational History Not on file Tobacco Use Smoking status: Never Smokeless tobacco: Never Vaping Use Vaping status: Never Used Substance and Sexual Activity Alcohol use: Never Drug use: Never Sexual activity: Not on file Other Topics Concern Not on file Social History Narrative Not on file Social Drivers of Health Financial Resource Strain: Low Risk (03/12/2024) Received from [facility] Overall Financial Resource Strain (CARDIA) Difficulty of Paying Living Expenses: Not hard at all Food Insecurity: No Food Insecurity (07/30/2024) Hunger Screening Food Insecurity - Worry: Never True Food Insecurity - Inability: Never True Transportation Needs: No Transportation Needs (03/12/2024) Received from [facility] PRAPARE - Transportation Lack of Transportation (Medical): No Lack of Transportation (Non-Medical): No Physical Activity: Sufficiently Active (03/12/2024) Received from [facility] Exercise Vital Sign Days of Exercise per Week: 4 days Minutes of Exercise per Session: 60 min Stress: No Stress Concern Present (03/12/2024) Received from [facility] [employer] - Occupational Stress Questionnaire Feeling of Stress : Only a little Social Connections: Moderately Integrated (03/12/2024) Received from [facility] Social Connection and Isolation Panel [NHANES] Frequency of Communication with Friends and Family: More than three times a week Frequency of Social Gatherings with Friends and Family: More than three times a week Attends [employer] Services: More than 4 times per year Active Member of Clubs or Organizations: No Attends Club or Organization Meetings: Never Marital Status: Living with partner Interpersonal Safety: Not At Risk (03/12/2024) Received from [facility] Humiliation, Afraid, Rape, and Kick questionnaire Fear of Current or Ex-Partner: No Emotionally Abused: No Physically Abused: No Sexually Abused: No Housing Instability: Low Risk (03/12/2024) Received from [facility] Housing Stability Vital Sign Unable to Pay for Housing in the Last Year: No Number of Times Moved in the Last Year: 0 Homeless in the Last Year: No Physical Exam: Vital Signs Vitals: 07/30/24 1032 BP: 116/73 Pulse: 86 Weight: 106.6 kg (235 lb) Height: 167.6 cm (5' 6 ) Physical Exam: video visit Gen: Not in acute distress, alert and oriented. Notes/Imaging/Labs reviewed Ultrasound findings Pertinent Ultrasound findings are see report Assessment/Plan 24 y.o. @ at 29w1d with Estimated Date of Delivery: 10/14/24 here for consultation regardin. 29 weeks gestation of 2. Pyelectasis of fetus on ultrasound - Unlisted Lab Test; Future - US MFM with or without consult; Future 3. hydronephrosis during , antepartum, single or unspecified fetus Grade I Hydronephrosis of the right kidney visualized with the renal pelvis measuring 0.95 cm. No hydroureter appreciated. Left kidney appears normal. Normal amniotic fluid. Urinary tract (UT) dilation may occur in 0.6-4.5% of pregnancies in the second trimester. It may be transient/physiologic in the majority of cases. However, it may also be caused by uretropelvic junction (UPJ) obstruction, vesicoureteral reflux, ureterovesical junction (UVJ) obstruction, and posterior urethral valves. It has also been shown to be a soft marker for trisomy 21 with a LR of 1.5-1.6. The anterior posterior renal pelvis dilation (APRPD) should be <4mm from 16-27 weeks and <7mm from 28 weeks until delivery. A fetus is at a low risk for a uropathy if the APRPD is is only mildly dilated and is 4.0-6.9mm at 16-27 weeks or 7.0-9.9mm after 28 weeks. However, there is an increased risk of a uropathy with the APRPD =7mm at 16-27 weeks or =10mm after 28 weeks OR if there is dilation of the calyces, increased parenchymal echogenicity, cortical cysts, dilated ureters, bladder abnormalities, or oligohydramnios due to obstruction at any gestational age. In terms of prognosis, It is generally agreed that those with moderate and se- erendira hydronephrosis (SFU Grade 3 and 4) require earlier and more frequent US evaluation than those with mild (SFU Grade 1 and 2) UT dilation. In a meta-analysis, SFU Grade 2 resolved in 70% of the cases and SFU Grade 1 and 2 stabilized in 98% of the cases. (Taylor 2006 218 Pediatr. Nephrol) Fred et al. observed in their study population of children with a history of UT dilation and mild (SFU Grade 1 and 2) hydronephrosis on the first US, that subsequent follow-up US demonstrated resolution of UT dilation in 67%, improvement in 13% (rFed 2014 J Pediatr. Urol). We also reviewed that pending the clinical progression of the hydronephrosis some children are at risk for surgical interventions, technician terminal and repeater renal dysfunction, hypertension and urinary tract infections. 4. Family history of congenital or genetic condition Aunt daughter has DiGeorge syndrome Autism both nephews Distant nephew with a hypoplastic left heart. Left ventricle appears normal today. She declined genetic consultation Discussed testing for DiGeorge syndrome during the also known as 22q11.2 deletion. In addition hydronephrosis can be associated with genetic conditions such as trisomy 21. Amniocentesis reviewed and declined. We also reviewed maternal testing she declined. The patient desires cell free DNA limitations were discussed Multifactorial nature of autism discussed they desire evaluation Recommendations: Declined genetic consultation Declined amniocentesis Accepts cell free DNA with inclusion of 22q11.2 deletion screen She will return in 4 weeks for re-evaluation of the kidneys Growth ultrasounds q.4 weeks through [facility] Weekly NST and DVP starting 32 -34 weeks until delivery through primary OB office Delivery location likely local hospital however we will re-evaluate the kidneys. The pediatricians must be notified at delivery regarding the kidneys so appropriate follow-up is arranged Pending repeat ultrasound the patient may require pediatric urology referral We will present the patient to joint MFM / NICU meeting Term delivery anticipated Plan reviewed with patient. She vocalized understanding all questions answered. The patient is to continue with routine care in your office Thank you for allowing me to participate in her care. Please contact me if you have any concerns. Elvis Maria MD, FACOG (she/hers) Maternal- Medicine [facility] [address] [place] [address] This document was created with [employer]Sivid[employer] technology. Though I make every effort to review the dictation as it is transcribed, on occasion the spoken word can be misinterpreted by the technology leading to inappropriate words, phrases, or sentences. This note is addressed to the requesting provider as a consultation for clinical guidance. Specific medical abbreviations are occasionally used and those are generally approved by the [place]?Board of?Obstetrics and?Gynecology?as well as?Ashley tijerina abbreviations. The above plan of care was based solely on the diagnoses for which a consultation was requested. ?More frequent testing may be indicated based on her other medical/obstetrical conditions. The management of other or medical conditions is beyond the scope of requested consultation and will continue to be followed by the primary systems planner or primary care provider. Note to patient: The Century Cures Act makes medical notes like these available to patients in the interest of transparency. However, be advised this is a medical document. It is intended as peer to peer communication. It is written in medical language and may contain abbreviations or verbiage that are unfamiliar. It may appear blunt or direct. Medical documents are intended to carry relevant information, facts as evident, and the clinical opinion of the practitioner. Blood drawn for cell-free DNA testing. Patient tolerated well. Specimen sent out for testing Headache/epigastric pain/blurry vision/swelling? no Cramping/contractions? no Abnormal vaginal discharge? no Spotting/vaginal bleeding? no Loss or gush of fluid like your water may have broken? no Do you have cats at home? yes Do you change the litter box (reason: risk of toxoplasmosis)? Has been changing with mask and gloves, encouraged to stop Genetic testing done this here or other office? no Have you been seen here at [facility] in a previous ? N/a Recent ER visits or hospitalizations? no Bring blood sugar log or meter with you today? (Please bring them with you for every visit at [facility]) n/a Flu vaccine (Feb-June)? N/a Any concerns that you would like me to mention to the provider today? no documented in this encounter [facility] 07-22-2024 Note Patient Education Infectious Disease Upper Respiratory Infection, [...] to help relieve symptoms, such as: ??? Vbia-peg-ugxugtm cold medicines. ??? Cough suppressants. Coughing is [...] other clear broths. General instructions ??? Take jlkw-cfo-hibrxlz and prescription medicines only as told by [...] and water are not available, use hand inventory auditor. ??? Avoid touching your mouth, face, eyes, [...] mucus. ??? You have a stiff neck. ? (more content not included)... [facility] 07-09-2024 History of Presen t illness Narrative Reason for Appointment: Patient ID: Aprli Puente is a 24 y.o. female who [...] Weight as of 08/22/18: 239 lb. BP: 120/78 Patient's last menstrual period was 01/08/2024. ASSESSMENT & PLAN ICD-10-CM 1. 26 weeks gestation of Z3A.26 POCT urinalysis dipstick manually resulted 2. Second trimester Z34.92 POCT urinalysis dipstick manually resulted 3. Diabetes mellitus screening Z13.1 CBC Glucose tolerance, 1 hour CBC Glucose tolerance, 1 hour Return OB: Patient presents today for a routine obstetrics appointment. Patient is currently 26w1d . Patient states she is doing well but has complaints of being tired due to current . Patient has verbalizes frequent movement. labor precautions was discussed/given and patient was instructed to perform kick counts three times a day. Orders Placed This Encounter Procedures CBC Glucose tolerance, 1 hour POCT urinalysis dipstick manually resulted Follow Up: Patient is to return to office in 2 week for routine OB appointment. Documented by CABRERA Pérez on behalf of: CABRERA Pérez documented in this encounter [facility] 05-20-2024 History of Presen t illness Narrative Reason for Appointment: Patient ID: [...] nursing note reviewed. Exam conducted with a route aide present. Vitals: Estimated body mass index is [...] of: CABRERA Pérez documented in this encounter [facility] 04-23-2024 History of Presen t illness Narrative Reason for Appointment: Patient ID: [...] nursing note reviewed. Exam conducted with a route aide present. Vitals: Estimated body mass index is [...] and stay away [facility]. Patient has been consulted regarding any further do's and don'ts of . Patient voiced understanding and all questions and concerns were answered. Orders Placed This Encounter Procedures Alpha fetoprotein, maternal POCT urinalysis dipstick manually resulted Follow Up: Patient is to return in 4 weeks for routine OB appointment. Documented by Kaya Hernandez LPN on behalf of: Yony Soto DO documented in this encounter [facility] 03-12-2024 History of Presen t illness Narrative Subjective April Weinberg is a [...] & printed will give to patient at [facility]/Dr. Bucio Daily vitamins OTC NatureMade PNV w/DHA & folic acid First trimester screening and second trimester screening discussed. Wants Genetic and Chromosomal Testing documented in this encounter [facility] 10-31-2022 Evaluation + Plan note Diagnostic Tests PendingFS and LH 10/31/22Insulin Level Total 10/31/22Testosterone Level Total 10/31/22DHEAS 10/31/22 [facility] 10-25-2022 Evaluation + Plan note Extrac nohelia from: Title:ED Note Author:Carlos Han PA-C te:10/25/22 Hand contusion (S60.229A: Co ntusion of unspecified hand, initial encounter) Orders: XR Hand 3+ Views Right Future Appointments Appointment Date:10/31/2022 09:00:00 AM Scheduled Provider: Location:.[facility] Appointment Type:US Abdominal/Pelvis (FT) Future Scheduled Tests Radiology* US Pelvis Non-OB Complete 10/31/22 [facility]06-29-2023 Hospital Discharge instructions Patient Education 10/25/2022 [...] An elastic wrap to support your hand. Cish-pax-chzxnqe medicines to control pain. Follow these instructions [...] sitting or lying down. General instructions Take iheq-xbk-zjvaaet and prescription medicines only as told by [...] provider. Document Revised: 08/03/2021 Document Reviewed: 08/03/2021 [employer] Patient Education 2022 MyClasses. Follow Up Care 10/25/2022 10:12:59 With:Kathy Kraus Address: [address] [place] [address] [phone] Business (1) When:10/28/2022 11:08:00 [facility]08-11-2022 Hospital Discharge instructions Patient Education 12/07/2021 19:56:20 Cellulitis, Adult, Fxvd-oi-Dikx Cellulitis, Adult Cellulitis is a skin infection. [...] Follow these instructions at home: Medicines Take qnnw-atj-nmujfen and prescription medicines only as told by [...] 10/01/2008 Document Revised: 09/04/2018 Document Reviewed: 09/04/2018 [employer] Patient Education [employer] Follow Up Care 12/07/2021 19:18:58 With:Kathy Kraus Address: [address] [place] [address] [phone] Business (1) When:12/10/2021 19:43:43 Comments:Take the antibiotics as prescribed you have completed the course. Please follow-up with your primary care doctor next 2 to 3 days. You can take the naproxen every 12 hours as needed for pain you can also take the Wagoner every 6 hours as needed for pain. Please return the ED for any new or worsening s ymptoms. [facility]08-11-2022 Evaluation + Plan noteExtracted from: Title:ED [...] Metabolic Panel 06/15/21 * Mononucleosis Screen 04/13/21 [facility]08-10-2022 Evaluation + Plan noteExtracted from: Title:ED [...] Metabolic Panel 06/15/21 * Mononucleosis Screen 04/13/21 [facility]08-10-2022 Hospital Discharge instructions Patient Education 12/06/2021 [...] antibiotic even if your condition improves. Take pksa-yzz-guibruz and prescription medicines only as told by [...] 04/15/2006 Document Revised: 09/19/2018 Document Reviewed: 09/19/2018 [employer] Patient Education 2019 MyClasses. Follow Up Care 12/06/2021 07:57:14 With:Kathy Kraus Address: [address] [place] [address] [phone] Business (1) When:12/09/2021 08:05:03 [facility]03-09-2022 Evaluation + Plan note Future Scheduled [...] Metabolic Panel 06/15/21 * Mononucleosis Screen [facility]/13/21 [facility] Diagnosis Encounter for supervision of normal first in first trimester 9 weeks gestation of documented [facility]* Diagnosis 15 weeks gestation of Second trimester state, incidental documented in this encounter [facility]* Diagnosis Well woman exam with routine gynecological exam Routine gynecological examination Second trimester state, incidental 19 weeks gestation of Screening, , for anatomic survey Encounter for anatomic survey Folliculitis Other specified disease of hair and hair follicles documented in this encounter [facility] note* Diagnosis 26 weeks gestation of Second trimester state, incidental Diabetes mellitus screening Screening for diabetes mellitus documented in this encounter [facility] note* Diagnosis 29 weeks gestation of - Primary Pyelectasis of fetus on ultrasound hydronephrosis during , antepartum, single or unspecified fetus Family history of congenital or genetic condition [facility]* Diagnosis Third trimester state, incidental 33 weeks gestation of documented in this encounter [facility] note* Diagnosis hydronephrosis during , antepartum, single or unspecified fetus- Primary documented [facility]* Diagnosis Third trimester state, incidental 35 weeks gestation of with normal glucose tolerance test (GTT) supraventricular tachycardia documented in this encounter [facility]* Diagnosis hydronephrosis during , antepartum, single or unspecified fetus- Primary Abnormal ultrasonic finding on screening of mother, antepartum [facility] Narrative No data available for this section [facility] No data available for this section [facility] Attachments The following attachments cannot be sent through Care Everywhere. * Preeclampsia ([place]) [facility]ructionsNot on file documented in this [facility]Pro[facility] SystemInstructionsNot on file documented in this encounterPro[facility] SystemProgress note No data available for this section [facility] Summary Purpose Family History No Family History Records FoundNo Family History Records FoundNo Family History Records Found No data available for this section No Family History Records FoundNo Family History [...] section and content) DATE CREATED AUTHOR 08/08/2018 [facility] DATE CREATED AUTHOR AUTHOR'S ORGANIZ ATION 02/10/2019 [facility] DATE CREATED AUTHOR AUTHOR'S ORGANIZ ATION 07/23/2024 [facility] DATE CREATED AUTHOR AUTHOR'S ORGANIZ ATION 07/25/2024 [facility] DATE CREATED AUTHOR AUTHOR'S ORGANIZ ATION 08/02/2024 [facility] DATE CREATED AUTHOR AUTHOR'S ORGANIZ ATION 09/10/2024 [facility] EPIC DATE CREATED AUTHOR AUTHOR'S ORGANIZ ATION 09/12/2024 [facility] DATE CREATED AUTHOR AUTHOR'S ORGANIZ ATION 09/12/2024 [facility] Care Team (unrecognized sect ion and content) Personnel Name: Kathy Kraus NP Address: [address] [place] [address] Personnel Name: Kathy Kraus NP Address: [address] [place] [address] [place] [address] Personnel Name: Kathy Kraus NP Address: Address: [address] [place] [address] Personnel Name: Kathy Kraus NP Address: Address: [address] [place], [place] [id number] Personnel Name: KATHY KRAUS NP Address: [address] [place] [address] [place] [address]- Telecom: Reason for Visit (unrecogniz ed section and content) Reason Comments Routine Visit Reason Comments add on pyelectasis, hydronephrosis right kidney Reason Comments add on polyhydramnios add on PACs Reason Comments New Patient Specialty Diagnoses / Procedures Referred By Contac t Referred To Contact Pediatric Urology Diagnoses Abnormal ultrasonic finding on screening of mother, antepartum Elvis Maria MD [address] [facility], [address] [place] [id number] Phone: tel: fax: Lori Rao MD [address] [place] [address] Phone: tel: fax: Referral ID Status Reason Start Date Expiration Date Visits Requested Visits Authorized [id number] Pending Review Specialty Services Required 08/13/2024 08/13/2025 1 1 FOR RECORDS PERTAINING TO PATIENTS WHO ARE [...] BE BASED ON THE PRIMARY CLINICAL RECORDS. Free & Clear [facility]. provides no warranty or guarantee of the accuracy or completeness of information in this document.
--- NOTE | 2024-09-15 12:12 | US_ITS ---
[place] [address] Patient Name: ENRICO CASTILLO MRN: [id number] date: 2000 Sex: F Assigned Patient Location: [facility] Current Patient Location: [facility] Accession/Order Number: [id number] Exam Date: 09/15/2024 13:12 Report Date: 09/15/2024 13:19 At the request of: DWAINE JUSTICE Procedure: US OB BPP w non-stress US OB BPP w non-stress 09/15/2024 12:41 PM SIGNS AND SYMPTOMS: ^01-08-2024 ^ SVT \S.br\ PROTOCOL: Transabdominal sonographic imaging COMPARISON: None FINDINGS: Estimated due date: 10/14/2024 Gestational age by estimated due date: 35 weeks and 5 days Amniotic fluid index: 17.2 cm (normal) Biophysical profile: breathing movements: 2/2 Gross body movements: 2/2 tone: 2/2 Qualitative amniotic fluid volume: 2/2 heart rate: 117 bpm US/US OB BPP w non-stress IMPRESSION: Biophysical profile score: 8/8. heart rate: 117 bpm Amniotic fluid index: 17.2 cm (normal) Impression dictated by: Blair Velasco M.D. 09/15/2024 1:19 PM Dictation Location: [facility] Electronically authenticated by: [id number] Y Date: 09/15/2024 13:19
[2024-09-15 12:55] VITALS: BP 107/70; PULSE 81
== END 2024-09-15 14:02 | disposition home or self-care (01) ==
LOC: US 11:56 → FBC 12:11
PROVIDERS: Visit Provider Nurse Practitioner Family
DX: O26.893 Other specified pregnancy related conditions, third trimester (principal); Z3A.35 35 weeks gestation of pregnancy; O36.8330 Maternal care for abnormalities of the fetal heart rate or rhythm, third trimester, not applicable or unspecified
CPT/HCPCS: 76818; 87081

== ENCOUNTER 2024-09-15 19:36 | Outpatient (REF) | payer OTHER, SELFPAY ==
--- OUTSIDE RECORDS SUMMARY | 2024-09-15 19:40 | XMS_ITS | CCD ---
Author Organization [facility] Inform ion Partnership [facility] Care Team Providers Care Toe Stripper Name Role Phone Aroldo Laraanda Attending Unavailable [...] Medication Allergies] Propensity to adverse reactions (disorder) [facility] Repository Medications Current Medications Medication Drug Class(es) [...] for 7 day(s), 10 mL, Refill(s) 0, [id number], 168, cm, 12/06/21 8:00:00 EDT, Height/Length Dosing, 107, kg, 12/06/21 8:00:00 EDT, Weight Dosing Start Date: 12/06/21 Stop Date: 12/13/21 Status: Ordered fluticasone propionate 0.05 mg/actuat metered dose nasal spray (1 source) Corticosteroid Start: 01-16-2021 take 1 spray(s) nasal route twice daily fluticasone 0.05 mg/inh Nasal [place] 1 spray(s), Nasal, BID, 16 gram, Refill(s) 5, each nostril, [id number], 168, cm, 01/16/21 11:00:00 EDT, Height/Length Dosing, 109.7, kg, 01/16/21 11:00:00 EDT, Weight Dosing Start Date: 01/16/21 Status: Ordered fluticasone 0.05 mg/inh Nasal [place] (1 source) Start: 01-16-2021 take 1 spray(s) nasal route twice daily fluticasone 0.05 mg/inh Nasal [place] 1 spray(s), Nasal, BID, 16 gram, Refill(s) 5, each nostril, [facility] #[id number], 168, cm, 01/16/21 11:00:00 EDT, [...] nausea/vomiting, # 60 tab(s), Refills(s) 1, Pharmacy: [facility]/pharm[facility] #[id number], 168, cm, 04/03/21 14:43:00 EST, [...] 09-09-2024 Episodic Other and delivery including normal (14 sources) Normal ; Translations: [Encounter for supervision [...] of ] 08-26-2024 Episodic Residual codes; unclassified (4 sources) Gestation period, 35 weeks; Translations: [35 [...] Test Name Value Interpretation Reference Range Facility US OB BPP W NON-STRESS on 09-15-2024 [place] [address] Ultrasound Report Signed Patient: APRIL PUENTE MR#: [id number] : 2000 Acct:[id number] Age/Sex: 24 / F ADM Date: 09/15/24 Loc: [place] [address]: Dwaine Peraza Ordering Physician: Dwaine Peraza Date of Service: 09/15/24 Procedure(s): US OB BPP w non-stress Accession Number(s): [id number] cc: Dwaine Peraza; Physician,Non-Staff M.D. The [place] [address] Patient Name: APRIL PUENTE MRN: [id number] date: 2000 Sex: F Assigned Patient Location: [facility] Current Patient Location: [facility] Accession/Order Number: [id number] Exam Date: 09/15/2024 13:12 Report Date: 09/15/2024 13:19 At the request of: DWAINE PERAZA Procedure: US OB BPP w non-stress US OB BPP w non-stress 09/15/2024 12:41 PM SIGNS AND SYMPTOMS: 01-08-2024 SVT S.br PROTOCOL: Transabdominal sonographic imaging COMPARISON: None FINDINGS: Estimated due date: 10/14/2024 Gestational age by estimated due date: 35 weeks and 5 days Amniotic fluid index: 17.2 cm (normal) Biophysical profile: breathing movements: 2/2 Gross body movements: 2/2 tone: 2/2 Qualitative amniotic fluid volume: 2/2 heart rate: 117 bpm US/US OB BPP w non-stress IMPRESSION: Biophysical profile score: 8/8. heart rate: 117 bpm Amniotic fluid index: 17.2 cm (normal) Impression dictated by: Blair Velasco M.D. 09/15/2024 1:19 PM Dictation Location: [place] [address] Electronically authenticated by: [id number] Y Date: 09/15/2024 13:19 Dictated By: Blair Velsaco M.D. Signed By: 09/15/24 1322 DD/ 1319 TD/TT: Simulation Engineer: [facility] Radiology, Radiologist, MD - 09/15/2024 [place] [address] Ultrasound Report Signed Patient: APRIL PUENTE MR#: [id number] : 2000 Acct:[id number] Age/Sex: 24 / F ADM Date: 09/15/24 Loc: [place] [address]- Attending Dr: Dwaine Peraza Ordering Physician: Dwaine Peraza Date of Service: 09/15/24 Procedure(s): US OB BPP w non-stress Accession Number(s): [id number] cc: Dwaine Peraza; Physician,Non-Staff Meghan [facility] [place] [id number] Patient Name: APRIL PUENTE MRN: [facility]:[id number] date: 2000 Sex: F Assigned Patient Location: [facility] Current Patient Location: [facility] Accession/Order Number: [id number] Exam Date: 09/15/2024 13:12 Report Date: 09/15/2024 13:19 At the request of: DWAINE PERAZA Procedure: US OB BPP w non-stress US OB BPP w non-stress 09/15/2024 12:41 PM SIGNS AND SYMPTOMS: 01-08-2024 SVT S.br PROTOCOL: Transabdominal sonographic imaging COMPARISON: None FINDINGS: Estimated due date: 10/14/2024 Gestational age by estimated due date: 35 weeks and 5 days Amniotic fluid index: 17.2 cm (normal) Biophysical profile: breathing movements: 2/2 Gross body movements: 2/2 tone: 2/2 Qualitative amniotic fluid volume: 2/2 heart rate: 117 bpm US/US OB BPP w non-stress IMPRESSION: Biophysical profile score: 8/8. heart rate: 117 bpm Amniotic fluid index: 17.2 cm (normal) Impression dictated by: Blair Velasco M.D. 09/15/2024 1:19 PM Dictation [facility] Electronically authenticated by: [id number] Y Date: 09/15/2024 13:19 Dictated By: Blair Velasco M.D. Signed By: 09/15/24 1322 DD/ 1319 TD/TT: Simulation Engineer: [facility] Radiology Study observation (narrative) [facility] US OB BPP W NON-STRESS Ordered By: Radiologist Radiology on 09-15-2024 [facility] Work Phone: Urinalysis macro (dipstick) panel (U)on 09-15-2024 Bilirubin, UA Negative Negative - 4(70) +++ mg/dL [facility] Blood, UA Negative Negative - 50 Titus/mcL [facility] Clarity, UA Clear [facility] Color, UA Yellow [facility] Glucose, UA Negative Negative - 1999(110) ++++ mg/dL [facility] Interpretation and review of laboratory results Normal [facility] Ketones, UA Negative Negative - 160(16) ++++ mg/dL [facility] Leukocytes, UA Negative Negative - 500+++ Tristan/mcL [facility] Nitrite, UA Negative Negative - Positive [facility] pH, UA 7 5 - 9 [facility] Protein, UA Negative Negative - 2000(20) ++++ mg/dL [facility] Spec Grav, UA 1.015 1 - 1.03 [facility] Urobilinogen, UA 0.2 0.2 - 12 mg/dL [facility] Urinalysis macro (dipstick) panel (U)on 08-26-2024 Bilirubin, UA Negative Negative - 4(70) +++ mg/dL [facility] Blood, UA Negative Negative - 50 Titus/mcL [facility] Clarity, UA Clear [facility] Color, UA Yellow [facility] Glucose, UA Negative Negative - 1999(110) ++++ mg/dL [facility] Interpretation and review of laboratory results Normal [facility] Ketones, UA Negative Negative - 160(16) ++++ mg/dL [facility] Leukocytes, UA Negative Negative - 500+++ Tristan/mcL [facility] Nitrite, UA Negative Negative - Positive [facility] pH, UA 7.5 5 - 9 [facility] Protein, UA Negative Negative - 1999(20) ++++ mg/dL [facility] Spec Grav, UA 1.02 1 - 1.03 [facility] Urobilinogen, UA 0.2 0.2 - 12 mg/dL [facility] C [place]ro[place] 07-24-2024 Throat culture Microbiology PROCEDURE: Throat Culture [R1] SOURCE: Throat BODY SITE: COLLECTED DATE/TIME: 07/22/2024 14:35 EDT RECEIVED DATE/TIME: 07/22/2024 16:27 EDT START DATE/TIME: 07/22/2024 16:28 EDT FREE TEXT SOURCE: Alfonso GAY, Lino Sarabia. Alfonso GAY, Lino Sarabia. FINAL REPORTS Final Report [] Verified Date/Time: 07/24/2024 07:15 EDT 2+ Normal throat lb isolated Performing Locations R1: This test was performed at: [facility], [address] [place] [address], [address] , , Normal [facility] Comment on above: Performed By: #### 2 [id number] #### [facility] [address] [place] [address] Family Medicine Office/Clini c Noteon 07-22-2024 Family [...] with voice recognition software. Occasional wrong-word or ???[id number]-[id number]??? 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 She follows with PSYCHIATR[facility] TE[facility] Dr. Soto. Denies nausea or vomiting but [...] difficulty m (more content not included)... Normal [facility] Comment on above: Result Comment: Elec tronically Signed By: Alfonso GAY, Lino Frias\.br\Date and Time Signed: 07/22/24 14:54 EDT No Panel InformationOrdered By: Jayla Banuelos on 07-22-2024 Throat culture 2+ Normal throat lb isolated [facility] Letter [facility] Patient Letter [facility] [address], [place] [phone] July 22, 2024 APRIL PUENTE [address] [place] [address] : 2000 Please excuse APRIL PUENTE from work . Date and/or Time of Absence: From: 07/21/24 To: 07/24/24 May return to work on: 07/24/24 Restrictions: None Comments: Please excuse due to an acute illness. Provider Signature: Lino Hamilton PA-C Physician Funeral Service Manager [facility] [address] [place] [address] Normal [facility] Urinalysis macro (dipstick) panel (U)on 07-09-2024 Bilirubin, UA Negative Negative - 4(70) +++ mg/dL [facility] Blood, UA Negative Negative - 50 Titus/mcL [facility] Clarity, UA Clear [facility] Color, UA Yellow [facility] Glucose, UA Negative Negative - 1999(110) ++++ mg/dL [facility] Interpretation and review of laboratory results Normal [facility] Ketones, UA Negative Negative - 160(16) ++++ mg/dL [facility] Leukocytes, UA Negative Negative - 500+++ Tristan/mcL [facility] Nitrite, UA Negative Negative - Positive [facility] pH, UA 7 5 - 9 [facility] Protein, UA Negative Negative - 1999(20) ++++ mg/dL [facility] Spec Grav, UA 1.015 1 - 1.03 [facility] Urobilinogen, UA 0.2 0.2 - 12 mg/dL [facility] US OB 14+ WEEKS ANATOMY SCAN on [...] II, MD, PHD at 30-Jun-2024 09:25:03 AM [facility] Normal Not Available Comment on above: Order Comment: US OB ANATOMY SINGLE W US OB CERVICAL LENGTH Estimated Date of Delivery: 10/14/24 Gestational Age as of 05/20/2024: 19w0d IGP,APTIMA HPV,AGE GDLNon AGE GDLN ACOG TESTING Note . [facility] Comment on above: TESTS RESULT FLAG UN ITS REF RANGE LAB Clinician Provided Cytology Information Source.............Cervix No. of containers..01 ThinPrep Vial Age Algo ACOG Tanya... FLAG LEGEND: L-Low Normal,H-High Normal,LL-Alert Low,HH-Alert High <-Panic Low,>-Panic High,A-Abnormal,AA-Critical Abnormal Performed at: 01 =[address] [place] [address] Lalita Ibrahim MD, HPV APTIMA Negative Negative [facility] Comment on above: This nucleic acid am plification test detects fourteen high- risk HPV types (16,18,31,33,35,39,45,51,52,56,58,59,66,68) without differentiation. Performed at: =[address] [id number] [employer]: Lalita Ibrahim MD, Phone: [phone] Performed at: [address], [place] [id number] [employer]: Lalita Ibrahim MD, Phone: [phone] IGP, RFX APTIMA HPV ASCU Note Abnormal . [facility] Comment on above: TESTS RESULT FLAG UN ITS REF RANGE LAB DIAGNOSIS: [A] 02 EPITHELIAL CELL ABNORMALITY. ATYPICAL SQUAMOUS CELLS OF UNDETERMINED SIGNIFICANCE (ASC-US). Recommendation: [A] 02 Suggest follow up as clinically appropriate. Specimen adequacy: 02 Satisfactory for evaluation. Endocervical and/or squamous metaplastic cells (endocervical component) are present. Performed by: 02 Mimi Jimenez, Financial Aid Counselor ([facility]) Electronically si... 02 Lino Rodríguez MD, Pathologist [...] <-Panic Low,>-Panic High,A-Abnormal,AA-Critical Abnormal Performed at: [address] [facility] [place] [address] Lalita Ibrahim MD, Interpretation and review of laboratory results Abnormal [facility] SPATULA-ALONE CERVIX [facility] RECURRENT VAGINITIS (HTRX)on 05-21-2024 ATOPOBIUM VAGINAE 0 [facility] ATOPOBIUM VAGINAE Not detected [facility] BVAB 2,3 (BACTERIAL VAGINOSIS ASSOCIATED BACTERIA 2, 3); MOBILUNCUS SPP 0 [facility] BVAB 2,3 (BACTERIAL VAGINOSIS ASSOCIATED BACTERIA 2, 3); MOBILUNCUS SPP Not detected [facility] DAVIDA ALBICANS, PARAPSILOSIS, TROPICALIS 0 [facility] DAVIDA ALBICANS, PARAPSILOSIS, TROPICALIS Not detected [facility] DAVIDA GLABRATA 0 [facility] DAVIDA GLABRATA Not detected [facility] DAVIDA KRUSEI 0 [facility] DAVIDA KRUSEI Not detected [facility] CHLAMYDIA TRACHOMATIS 0 [facility] CHLAMYDIA TRACHOMATIS Not detected N [facility] GARDNERELLA VAGINALIS 0 [facility] GARDNERELLA VAGINALIS Not detected N [facility] MEGASPHAERA (TYPES 1, 2) 0 [facility] MEGASPHAERA (TYPES 1, 2) Not detected [facility] MYCOPLASMA GENITALIUM 0 [facility] MYCOPLASMA GENITALIUM Not detected N [facility] NEISSERIA GONORRHOEAE 0 [facility] NEISSERIA GONORRHOEAE Not detected N [facility] TRICHOMONAS VAGINALIS 0 [facility] TRICHOMONAS VAGINALIS Not detected N [facility] Urinalysis macro (dipstick) panel (U)on 05-20-2024 Bilirubin, UA Negative Negative - 4(70) +++ mg/dL [facility] Blood, UA Negative Negative - 50 Titus/mcL [facility] Clarity, UA Clear [facility] Color, UA Yellow [facility] Glucose, UA Negative Negative - 1999(110) ++++ mg/dL [facility] Interpretation and review of laboratory results Normal [facility] Ketones, UA Negative Negative - 160(16) ++++ mg/dL [facility] Leukocytes, UA Negative Negative - 500+++ Tristan/mcL [facility] Nitrite, UA Negative Negative - Positive [facility] pH, UA 5.5 5 - 9 [facility] Protein, UA Negative Negative - 1999(20) ++++ mg/dL [facility] Spec Grav, UA 1.025 1 - 1.03 [facility] Urobilinogen, UA 0.2 0.2 - 12 mg/dL [facility] AFP, SERUM, OPEN SPINA BIFID Aon 05-19-2024 AFP MOM 1.09 . [facility] AFP VALUE 40.6 ng/mL . [facility] COMMENT: Comment . [facility] Comment on above: Torri John , Ph.D., [facility] Director References: Available Upon Request. Multiples Of Median Cutoffs For AFP Elevations Christianson 2.5 Black 2.8 IDD 2.0 Twins 4.5 Abbreviation Definitions IDD - Insulin Dep Diabetes OSBR - Open Spina Bifida Risk For further inquiries contact [facility] at [phone]. This test was developed and its performance characteristics determined by [employer]. It has not been cleared or approved by the Food and Drug Administration. Performed at: [facility] [address] [place], [place] [id number] [employer]: Amee Marmolejo [facility], Phone: [phone] GEST. AGE ON COLLECTION DATE 18.7 . weeks [facility] GESTAT. AGE BASED ON LMP . [facility] Comment on above: Recalculations are n ot recommended when gestational dating by LMP and ultrasound are within 10 days. INSULIN DEP DIABETES No . [facility] INTERPRETATION Comment . [facility] Comment on above: Interpretation: Scre [...] Customer Services to discuss available options. The [place] [employer] recommends amniocentesis be offered to women age 35 and older. [age] [facility] MULTIPLE GESTATION No . [facility] OSBR RISK 1 IN 9230 . [facility] RACE Other . [facility] RESULTS Report . [facility] TEST RESULTS: Negative . [facility] WEIGHT 220 . lbs [facility] N N LMP [id number] 1 15 N 1 Y 220 N N N N N White/ [facility] Urinalysis macro (dipstick) panel (U)on 12-26-2024 Bilirubin, UA Negative Negative - 4(70) +++ mg/dL [facility] Blood, UA Negative Negative - 50 Titus/mcL [facility] Clarity, UA Clear [facility] Color, UA Yellow [facility] Glucose, UA Negative Negative - 1999(110) ++++ mg/dL [facility] Interpretation and review of laboratory results Abnormal [facility] Ketones, UA Negative Negative - 160(16) ++++ mg/dL [facility] Leukocytes, UA Negative Negative - 500+++ Tristan/mcL [facility] Nitrite, UA Negative Negative - Positive [facility] pH, UA 7.5 5 - 9 [facility] Protein, UA Trace Negative - 1999(20) ++++ mg/dL [facility] Spec Grav, UA 1.02 1 - 1.03 [facility] Urobilinogen, UA 0.2 0.2 - 12 mg/dL [facility] MLR HEMOGLOBIN A1Con 024 Glucose [Mass/Vol] 97 mg/dL [facility] HbA1c (Bld) [Mass fraction] 5 % 4.5 - 6.2 % [facility] Comment on above: ADA RECOMMENDED LIMI T 4.0 - 6.0 ADA THERAPEUTIC TARGET < 7.0 ACTION SUGGESTED > 7.0 [facility] CHEMISTRYOrdered By: SYSTEM SYSTEM on 10-31-2022 25-hydroxyvitamin [...] 1.29 m[IU]/L Normal 0.34 - 5.60 mcIU/mL [facility] Remisol CHEMISTRYOrdered By: Hiro fernandez on 10-31-2022 HbA1c (Bld) [Mass fraction] 4.9 % Normal <=5.9% [facility] ChemAutoSS Reference Laboratory Testing Ordered By: Cair DomainUser on 05-08-2021 SARS-CoV-2 (COVID-19) RNA GA+probe Ql (Resp) Detected Invalid Interpretation Code Not Detected [facility]sSS Comment on above: Result Comment: Chanel ents who have a positive COVID-19 test result may now have treatment options. Treatment options are available for patients with mild to moderate symptoms and for hospitalized patients. Visit our website at [email or web address] for resources and information. This nucleic acid amplification test was developed and its performance characteristics determined by [employer]. Nucleic acid amplification tests include RT-PCR and [...] detected) result in this assay. Performed at: [facility] [id number] PhD Mp Galdamez 02-10-2019 CNCO Letter Text Normal 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 April Bib Fried is a 19 year old female, [...] No Time Spent: 30 minutes SIGNATURE: Татьяна Schnee, , RD, CSP, LD PATIENT NAME: April Fried DATE: February 03, 2019 TIME: 3:48 PM PAGER: [phone] 02/03/2019 4:22 PM Addendum [...] x 100-150 hakeem snacks daily is ok https://Vidcaster/ Edxact/251-qvcegea-ev acks https://Rapid RMS.zulily om/725-xvxvqzb-lauwop / 1/2 serving healthy fat: 1/2 oz [...] Ayala) MS Evelia, RD, CSP, LD [facility] [phone] Referring Provider: SHEA THOMSON) [[id number]] Allergies As of Date: 02/03/2019 (No Known [...] x 100-150 hakeem snacks daily is ok https://Vidcaster/ Edxact/035-tgtplsl-rp acks https://Rapid RMS.IPLocks/038-eexpwsl-gqtokx / 1/2 serving healthy fat: 1/2 oz [...] on youtube Follow-up: 2 months Татьяна Ayala) Evelia MS, RD, CSP, LD [facility] [phone] Letter Text Encounter Status:Closed by ТАТЬЯНА QUILES on 02/03/[address] 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 Recently, her weight trend has been: Trending [...] surgery? no Diabetes: yes in maternal grandmother CAD/MO: no Early coronary disease in first degree [...] Abs Lymph 1.00 - 4.00 k/uL 2.76 [place]% % 8.4 Abs [place] <0.87 k/uL 0.70 [place]% % 1.7 Abs [...] clinic, April Fried will meet with a manager training and development today. 2) Obesity: Yes 3) Hypertension: No [...] in 4 months Referring Provider: SHEA THOMSON) [[id number]] Allergies As of Date: 02/03/2019 (No Known Allergies) Date Reviewed: 10/27/2018 Reviewed by: Shea Ngo) MD Yandel - Fully Assessed Reason for Visit: Consult [502] Cmt: non-alchoholic fatty liver disease Primary Visit Diagnosis:Hepatic steatosis [K76.0] Other Visit Diagnoses:NAFLD (nonalcoholic fatty liver disease) [K76.0] Pediatric obesity due to excess calories without serious comorbidity, unspecified BMI [E66.09] Order(s):CERULOPLASMI N BLD [SQCERULO] Order #: [id number]. #:[id number] HEP REMOTE PANEL BL [SQHREMOP] Order #: [id number]. #:[id number] HGB A1C [ZWKGU5Q] Order #: [id number]. #:[id number] HEPATIC FUNCTION PNL [SQHFP] Order #: [id number] FUTURE Prescriptions as of 02/03/2019 Sig: ERGOCALCIFEROL [...] by JOHNNY ARANGO MD on 02/03/[address] [facility] Ceruloplasminon 02-03-2019 Ceruloplasmin 29 mg/dL Normal 16-[address] [facility] Comment on above: Performed By: #### C ERULO, HBA1C, HREMOP ####[facility] [address]ief[address]CT[place], [place] [phone] Hemoglobin A1con 02-03-2019 HbA1c (Bld) [Mass fraction] 4.9 % Normal 4.3-5.[address] [facility] Comment on above: Result Comment: Amer [place] Diabetes Association guidelines indicate that patients with HgbA1c in the range 5.7-6.4% are at increased risk for development of diabetes, and intervention by lifestyle modification may be beneficial. HgbA1c greater or equal to 6.5% is considered diagnostic of diabetes. Performed By: #### C ERULO, HBA1C, HREMOP ####[facility] Rapsoumposrj[address]CTil[address], [place] [phone] HbA1c (Bld) [Mass fraction] 94 mg/dL Normal [facility] Comment on above: Result Comment: eAG: (Estimated average glucose) is a calculated value from HgbA1c and is agency sales representative of the average blood glucose level in the last 2-3 month period. Performed By: #### C ERULO, HBA1C, HREMOP ####[facility] [address], [place] [phone] Hepatic Functn Panelon 02-03 Albumin [Mass/Vol] 4.4 g/dL Normal 3.2-4.5 [facility] Comment on above: Performed By: #### H FP ####[facility], [place] [phone] ALP [Catalytic activity/Vol] 75 U/L Normal 45-[address] [facility] Comment on above: Result Comment: Refe [...] Clin Biochem. Performed By: #### H FP ####[address] [phone] ALT [Catalytic activity/Vol] 26 U/L Normal 7-[address] [facility] Comment on above: Result Comment: (NOT E) Reference ranges for this patient's age group have not been established. These reference ranges reflect verified or established ranges for the adult population. Interpret these ranges wtih caution using clinical context and additional reference resources. Performed By: #### H FP ####[address] [phone] AST [Catalytic activity/Vol] 24 U/L Normal 13-[address] [facility] Comment on above: Result Comment: (NOT E) Reference ranges for this patient's age group have not been established. These reference ranges reflect verified or established ranges for the adult population. Interpret these ranges with caution using clinical context and additional reference resources. Performed By: #### H FP ####[address] [phone] Bilirubin [Mass/Vol] 0.2 mg/dL Normal 0.2-1.3 [facility] Comment on above: Result Comment: (NOT E) Reference ranges for this patient's age group have not been established. These reference ranges reflect verified or established ranges for the adult population. Interpret these ranges with caution using the clinical context and additional reference resources. Performed By: #### H FP ####[address] [phone] Bilirubin,Conjugated <0.2 Normal <0.2 [facility] Comment on above: Result Comment: (NOT E) Reference ranges for this patient's age group have not been established. These reference ranges reflect verified or established ranges for the adult population. Interpret these ranges with caution using the clinical context and additional reference resources. Performed By: #### H FP ####[address] [phone] Protein [Mass/Vol] 7.8 g/dL Normal 6.3-8.0 [facility] Comment on above: Result Comment: (NOT [...] MK, Home I, Srinivasan M, et al. [facility] Initiative on Reference Interval Database(CALIPER): pediatric reference intervals for an integrated clinical chemistry and immunoassay analyzer, Burns ASSOCIATE ATTORNEY [id number]. Clin Biochem 2009;42:885-891. Performed By: #### H FP ####[address] [phone] Hepatitis Remote Panelon HBsAg Negative Normal Negative [facility] Comment on above: Performed By: #### C ERULO, HBA1C, HREMOP ####[facility] [place], [place] [phone] Hep B Core Ab,Total Negative Normal Negative [facility] Comment on above: Performed By: #### C ERULO, HBA1C, HREMOP ####[place] [address] [place], [place] [phone] Hepatitis C Ab IA Negative Normal Negative [facility] Comment on above: Performed By: #### C ERULO, HBA1C, HREMOP ####[place] [address] [place], [place] [phone] HepB Surface Ab,Qual Negative Normal Negative [facility] Comment on above: Result Comment: JULIANNCedrick MARELYRAYSA Performed By: #### C ERULO, HBA1C, HREMOP ####[facility] [address] [place], [place] [phone] PROGRESSon 02-03-2019 PROGRESS HNO ID: [id number] Author: Татьяна Quiles Service: ? Author Type: [...] x 100-150 hakeem snacks daily is ok https://Vidcaster/ [email or web address]-ql acks https://www.ScalingDatas.c [email or web address]-qoqwjeo-ryhelr / 2 serving healthy fat: 1/2 oz nuts (2 [...] February 03, 2019 TIME: 3:48 PM PAGER: [phone] [facility] PROGRESS HNO ID: [id number] Author: Momo Coronado (Coord) Service: ? Author Type: Research Type: Progress Notes Filed: 02/03/2019 4:01 PM Note Text: DATE: February 03, 2019 TIME: 03:20 PM PT. NAME: April Fried [facility]#: [id number] IRB #: [id number] PROTOCOL: TARGET-ROJAS: 5-year Longitudinal Observational Study of Patients with Nonalcoholic Fatty Liver or Nonalcoholic Steatohepatitis Principle Music Video Director: Dr. Johnny mccartney [place]: Momo Coronado, (Pager [phone]) [facility] personnel interviewer for study related questions: Ped. [place] (Momo Coronado, Research Crd - Pager [phone]) April Fried was seen today as standard of care visit with Dr. Mendieta in the Pediatric Gastroenterology Clinic. In addition,April Fried was consented and enrolled in the TARGET-ROJAS- study [id number]. Forester Silviculture and/or Research Coordinator explained the protocol to [...] standard of care visit. _ Tata Knowles [facility] [place] [facility] Normal [facility] PROGRESS HNO ID: [id number] Author: Johnny Mendieta Service: ? 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 Recently, her weight trend has been: Trending [...] surgery? no Diabetes: yes in maternal grandmother CAD/MO: no Early coronary disease in first degree [...] Abs Lymph 1.00 - 4.00 k/uL 2.76 [place]% % 8.4 Abs [place] <0.87 k/uL 0.70 Eosin% % 1.7 Abs [...] clinic, April Fried will meet with a manager training and development today. 2) Obesity: Yes 3) Hypertension: No [...] Metabolic Liver Clinic February 03, [address] [facility] CNPTOUTREACHon 12-10-2018 CNPTOUTREA Patient Outreach (PGASMN) APRIL MIN ([id number]) 4 F Date Time Provider Department 12/10/18 SHEA THOMSON) [facility] During your visit today, we recorded the following information about you: Sen Mendoza 12/10/2018 3:32 PM Signed Called and spoke [...] Status:Closed by SEN MENDOZA on 12/10/[address] [facility] PROGRESSon 12-10-2018 PROGRESS HNO ID: [id number] Author: Sen Mendoaz Service: ? Author Type: ? Type: Progress [...] questions for RN at this time. Normal [facility] Amylaseon 10-27-2018 Amylase [Catalytic activity/Vol] 56 U/L Normal 30-[address] [facility] Comment on above: Result Comment: (NOT E) Reference ranges for this patient's age group have not been established. These reference ranges reflect verified or established ranges for the adult population. Interpret these ranges with caution using the clinical context and additional reference resources. Performed By: #### A MYL, CRP, LIPA, VITD, ENDOMY, GLIIGA, TGIGA #### [facility] [address] [place], [place] [phone] C-Reactive Proteinon 019 CRP [Mass/Vol] 0.3 mg/dL Normal <0.[address] [facility] Comment on above: Performed By: #### A MYL, CRP, LIPA, VITD, ENDOMY, GLIIGA, TGIGA #### [facility] [address] [place], [place] [address] CBC and Differentialon 10-27 Abs Baso <0.03 Normal <0.[address] [facility] Comment on above: Performed By: #### A MYL, CRP, LIPA, VITD, ENDOMY, GLIIGA, TGIGA #### [place] [phone] Abs [place] 0.70 k/uL Normal <0.[address] [facility] Comment on above: Performed By: #### A MYL, CRP, LIPA, VITD, ENDOMY, GLIIGA, TGIGA #### [place] [phone] Abs Neut 4.75 k/uL Normal 1.45-7.[address] [facility] Comment on above: Performed By: #### A MYL, CRP, LIPA, VITD, ENDOMY, GLIIGA, TGIGA #### [place] [phone] Absolute nRBC <0.01 Normal <0.[address] [facility] Comment on above: Performed By: #### A MYL, CRP, LIPA, VITD, ENDOMY, GLIIGA, TGIGA #### [place] [phone] Basophils/100 WBC (Bld) 0.2 % Normal [facility] Comment on above: Performed By: #### A MYL, CRP, LIPA, VITD, ENDOMY, GLIIGA, TGIGA #### [place] [phone] DTYPE Auto Diff Normal [facility] Comment on above: Performed By: #### A MYL, CRP, LIPA, VITD, ENDOMY, GLIIGA, TGIGA #### [place] [phone] Eosinophils (Bld) [#/Vol] 0.14 10*3/uL Normal <0.[address] [facility] Comment on above: Performed By: #### A MYL, CRP, LIPA, VITD, ENDOMY, GLIIGA, TGIGA #### [place] [phone] [place] [phone] Eosinophils/100 WBC (Bld) 1.7 % Normal [facility] Comment on above: Performed By: #### A MYL, CRP, LIPA, VITD, ENDOMY, GLIIGA, TGIGA #### [place] [phone] Erythrocyte distribution width (RBC) [Ratio] 12.4 % Normal 11.5-15.[address] [facility] Comment on above: Performed By: #### A MYL, CRP, LIPA, VITD, ENDOMY, GLIIGA, TGIGA #### [place] [phone] Hematocrit (Bld) [Volume fraction] 38.5 % Normal 36.0-46.[address] [facility] Comment on above: Performed By: #### A MYL, CRP, LIPA, VITD, ENDOMY, GLIIGA, TGIGA #### [place] [phone] Hemoglobin (Bld) [Mass/Vol] 12.5 g/dL Normal 11.5-15.[address] [facility] Comment on above: Performed By: #### A MYL, CRP, LIPA, VITD, ENDOMY, GLIIGA, TGIGA #### [place] [phone] Lymphocytes (Bld) [#/Vol] 2.76 10*3/uL Normal 1.00-4.[address] [facility] Comment on above: Performed By: #### A MYL, CRP, LIPA, VITD, ENDOMY, GLIIGA, TGIGA #### [place] [phone] Lymphocytes/100 WBC (Bld) 33.0 % Normal [facility] Comment on above: Performed By: #### A MYL, CRP, LIPA, VITD, ENDOMY, GLIIGA, TGIGA #### [place] [phone] MCH (RBC) [Entitic mass] 27.8 pG Normal 26.0-34.[address] [facility] Comment on above: Performed By: #### A MYL, CRP, LIPA, VITD, ENDOMY, GLIIGA, TGIGA #### [place] [phone] MCHC (RBC) [Mass/Vol] 32.5 g/dL Normal 30.5-36.0 [facility] Comment on above: Performed By: #### A MYL, CRP, LIPA, VITD, ENDOMY, GLIIGA, TGIGA #### [place] [phone] MCV (RBC) [Entitic vol] 85.7 fL Normal 80.0-100.[address] [facility] Comment on above: Performed By: #### A MYL, CRP, LIPA, VITD, ENDOMY, GLIIGA, TGIGA #### [place] [phone] Monocytes/100 WBC (Bld) 8.4 % Normal [facility] Comment on above: Performed By: #### A MYL, CRP, LIPA, VITD, ENDOMY, GLIIGA, TGIGA #### [place] [address] Neutrophils/100 WBC (Bld) 56.7 % Normal [facility] Comment on above: Performed By: #### A MYL, CRP, LIPA, VITD, ENDOMY, GLIIGA, TGIGA #### [place] [phone] NRBCs 0.0 /100 WBC Normal [address] [facility] Comment on above: Performed By: #### A MYL, CRP, LIPA, VITD, ENDOMY, GLIIGA, TGIGA #### [place] [phone] [place] [phone] Platelet mean volume (Bld) [Entitic vol] 8.5 fL Low 9.0-12.[address] [facility] Comment on above: Performed By: #### A MYL, CRP, LIPA, VITD, ENDOMY, GLIIGA, TGIGA #### [place] [phone] [place] [phone] Platelets (Bld) [#/Vol] 387 10*3/uL Normal 150-[address] [facility] Comment on above: Performed By: #### A MYL, CRP, LIPA, VITD, ENDOMY, GLIIGA, TGIGA #### [place] [phone] RBC (Bld) [#/Vol] 4.49 10*6/uL Normal 3.90-5.20 [facility] Comment on above: Performed By: #### A MYL, CRP, LIPA, VITD, ENDOMY, GLIIGA, TGIGA #### [place] [phone] [place] [phone] WBC (Bld) [#/Vol] 8.37 10*3/uL Normal 3.70-11.00 [facility] Comment on above: Performed By: #### A MYL, CRP, LIPA, VITD, ENDOMY, GLIIGA, TGIGA #### [place] [phone] [place] [phone] CNCOon 10-27-2018 CNCO Letter Text Normal [facility] CNOVon 10-27-2018 CNOV Office Visit (PGASAV ) APRIL MIN ([id number]) 4 F Date Time Provider Department 10/27/18 [...] labwork or ultrasounds were completed. 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 Bowel movement [...] 2.39) based on CDC (Girls, 2-20 Years) hpylhu-jpq-dcc data using vitals from 10/27/2018.)(>99 %ile (Z= [...] sooner santi Thomson MD Pediatric Gastroenterology Staff [facility]'s CC: Maria Elena Lara, DIRECTOR OF ANNUAL GIVING-C [address] [place] [address] Shea Thomson MD, MD 10/27/2018 1:28 PM Signed Labs today Stool sample - drop off at local hospital Ultrasound - at local hospital Bentyl - take pain three times per day as needed for pain Referring Provider: MARIA ELENA LARA [[id number]] Allergies As of Date: 10/27/2018 (No Known Allergies) Date Reviewed: 10/27/2018 Reviewed by: Shea Wong () MD Yandel - Fully Assessed Reason for Visit: New Patient [172] Primary Visit Diagnosis:RUQ abdominal pain [R10.11] Other Visit Diagnoses:Nausea [R11.0] Constipation, unspecified constipation type [K59.00] Order(s):TSH BLD [SQTSH] Order #: [id number] FUTURE SED RATE WESTERGREN [SQWSR] Order #: [id number] FUTURE ENDOMYSIAL IGA AB [SQENDOMY] Order #: [id number] IGA BLD [SQIGA] Order #: [id number] FUTURE C-REACTIVE PROTEIN (CRP) [SQCRP] Order #: [id number] VITAMIN D 25 HYDROXY [SQVITD] Order #: [id number] COMP METABOLIC PANEL [SQCMP] Order #: [id number] FUTURE CBC + DIFF [SQCBCDIF] Order #: [id number] T4 FREE/FREE THYROX [SQFT4] Order #: [id number] FUTURE LIPASE BLD [SQLIPA] Order #: [id number] GLIADIN (DEAMIDATED) AB, IGA [SQGLIIGA] Order #: [id number] AMYLASE BLD [SQAMYL] Order #: [id number] TRANSGLUTAMINASE IGA [SQTGIGA] Order #: [id number] dicyclomine (BENTYL) 20 mg tabletTake 1 tablet [...] by SHEA THOMSON MD on 10/27/[address] [facility] Comp Metabolic Panelon 10-27 Albumin [Mass/Vol] 4.5 g/dL Normal 3.2-4.5 [facility] Comment on above: Result Comment: Refe rence ranges were not locally established for this patient's age group. The normal values are based on the following source: Albumin (Gen. 2) (package insert v 10.0 Bruneian). [facility], [place], [place], June 2014. Performed By: #### F T4, WSR, IGA ####[facility] [place], [place] [phone] ALP [Catalytic activity/Vol] 72 U/L Normal 50-[address] [facility] Comment on above: Result Comment: Refe [...] Performed By: #### F T4, WSR, IGA ####[facility] [place], [place] [phone] ALT [Catalytic activity/Vol] 29 U/L Normal 7-[address] [facility] Comment on above: Result Comment: (NOT E) Reference ranges for this patient's age group have not been established. These reference ranges reflect verified or established ranges for the adult population. Interpret these ranges wtih caution using clinical context and additional reference resources. Performed By: #### F ANJUM Cowan, IGA ####[facility] [place] [address] [phone] Anion gap [Moles/Vol] 13 mmol/L Normal 9-18 [facility] Comment on above: Result Comment: (NOT E) Reference ranges for this patient's age group have not been established. These reference ranges reflect verified or established ranges for the adult population. Interpret these ranges with caution using the clinical context and additional reference resources. Performed By: #### F ANJUM Cowan, IGA ####[address] [phone] AST [Catalytic activity/Vol] 19 U/L Normal 13-[address] [facility] Comment on above: Result Comment: (NOT E) Reference ranges for this patient's age group have not been established. These reference ranges reflect verified or established ranges for the adult population. Interpret these ranges with caution using clinical context and additional reference resources. Performed By: #### F Camryn, ANJUM, IGA ####[address] [phone] Bilirubin [Mass/Vol] 0.2 mg/dL Normal 0.2-1.3 [facility] Comment on above: Result Comment: (NOT E) Reference ranges for this patient's age group have not been established. These reference ranges reflect verified or established ranges for the adult population. Interpret these ranges with caution using the clinical context and additional reference resources. Performed By: #### F T4, WSBib, IGA ####[address] [phone] Calcium [Mass/Vol] 9.7 mg/dL Normal 8.5-10.2 [facility] Comment on above: Result Comment: Refe rence ranges were not locally established for this patient's age group. The normal values are based on the following source: Calcium (Gen. 2) (package insert v3.0 [place]ian). [facility], [place], [place], January 2013. Performed By: #### F T4ANJUM, IGA ####[facility], [place] [phone] Chloride [Moles/Vol] 103 mmol/L Normal 97-105 [facility] Comment on above: Result Comment: (NOT E) Reference ranges for this patient's age group have not been established. These reference ranges reflect verified or established ranges for the adult population. Interpret these ranges with caution using the clinical context and additional reference resources. Performed By: #### F ANJUM Cowan, IGA ####[facility] [place], [place] [phone] CO2 [Moles/Vol] 22 mmol/L Normal 22-[address] [facility] Comment on above: Result Comment: (NOT E) Reference ranges for this patient's age group have not been established. These reference ranges reflect verified or established ranges for the adult population. Interpret these ranges with caution using the clinical context and additional reference resources. Performed By: #### F ANJUM Cowan, IGA ####[facility], [place] [phone] Creatinine [Mass/Vol] 0.64 mg/dL Normal 0.58-0.96 [facility] Comment on above: Result Comment: Refe rence ranges for this patient's age group have not been established. These reference ranges reflect verified or established ranges for the adult population. Interpret these ranges with caution using the clinical context and additional reference resources. Performed By: #### F T4, WSBib, IGA ####[facility] [place], [place] [phone] GFR/1.73 sq M predicted among non-blacks MDRD (S/P/Bld) [Vol rate/Area] 0.65 mL/min/{1.73_m2} Normal [facility] Comment on above: Result Comment: eGFR (Estimated GFR) Units of measure: mL/min/1.73 meters squared eGFR in pediatric patients is calculated from the Bedside García equation based on a stable serum creatinine and height. The creatinine assay has been calibrated to be traceable to IDZakaz.ua. To calculate the patient's eGFR, multiply the given factor by the patient's height (centimeters). An eGFR <60 mL/min/1.73m2 for >3 months is consistent with chronic kidney disease. Refer to KDOQI guidelines for clinical interpretation. Performed By: #### F ANJUM Cowan IGA ####[facility], [place] [phone] Glucose [Mass/Vol] 108 mg/dL High 74-99 [facility] Comment on above: Result Comment: Refe rence ranges for this patient's age group have not been established. These reference ranges reflect verified or established ranges for the adult population. Interpret these ranges with caution using the clinical context and additional reference resources. The [place] Diabetes Association (ADA) provides guidance for cutoff [...] Standards of Medical Care in Diabetes 2016, [place] Diabetes Association. Diabetes Care. 2016.39(Suppl 1). Performed By: #### F ANJUM Cowan IGA ####[facility] [address], [place] [phone] Potassium [Moles/Vol] 4.0 mmol/L Normal 3.7-5.1 [facility] Comment on above: Performed By: #### F ANJUM Cowan IGA ####[facility], [place] [phone] Protein [Mass/Vol] 7.8 g/dL Normal 6.3-8.0 [facility] Comment on above: Result Comment: Refe rence ranges for this patient's age group have not been established. These reference ranges reflect verified or established ranges for the adult population. Interpret these ranges with caution using the clinical context and additional reference resources. Performed By: #### F T4, WSR, IGA ####[facility] [place], [place] [phone] Sodium [Moles/Vol] 138 mmol/L Normal 136-144 [facility] Comment on above: Result Comment: (NOT E) Reference ranges for this patient's age group have not been established. These reference ranges reflect verified or established ranges for the adult population. Interpret these ranges with caution using the clinical context and additional reference resources. Performed By: #### F T4, WSR, IGA ####[facility] [place], [place] [phone] Urea nitrogen [Mass/Vol] 14 mg/dL Normal 5-[address] [facility] Comment on above: Result Comment: Refe rence ranges were not locally established for this patient's age group. The normal values are based on the following source: Urea/BUN (package insert v7.0 Bruneian). [facility], [place], [place], March 2015. Performed By: #### F T4, WSR, IGA ####[facility] [place], [place] [phone] Endomysial IgA Abson 019 Endomysial IgA Abs <1:10 Normal <1:10 [facility] Comment on above: Result Comment: Refe rence Range: Negative < 1:10 Dilution IgA endomysial antibody is a highly sensitive and specific marker for celiac disease in patients with a normal IgA and on a normal diet. Levels reflect the adherence to gluten free diet. Performed By: #### A MYL, CRP, LIPA, VITD, ENDOMY, GLIIGA, TGIGA #### [facility] [address] [place], [place] [address] Free T4on 10-27-2018 Free T4 [Mass/Vol] 1.3 ng/dL Normal 0.8-1.5 [facility] Comment on above: Performed By: #### F T4, WSR, IGA ####[facility] [place], [place] [phone] Gliad Deamidated IgAon 10-27 Gliad IgA Ab 11 Units Normal <[address] [facility] Comment on above: Result Comment: Nega tive : < 20 Units Weak Positive : 20 - 30 Units Moderate Pos to Strong Pos: >30 Units The following results were obtained with the [employer] QUANTA Lite Gliadin IgA MIKE. Gliadin IgA values obtained with different manufacturers' assay methods may not be used interchangeably. The magnitude of the reported IgA levels cannot be correlated to an endpoint titer. Performed By: #### A MYL, CRP, LIPA, VITD, ENDOMY, GLIIGA, TGIGA #### [facility] [address] [place], [place] [address] HISTORY PHYSICALon 9 HISTORY PHYSICAL HNO ID: [id number] Author: Shea Ngo) MD Yandel Service: ? [...] labwork or ultrasounds were completed. 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 Bowel movement [...] 2.39) based on CDC (Girls, 2-20 Years) wthzed-hvi-tzq data using vitals from 10/27/2018.)(>99 %ile (Z= [...] sooner santi Thomson MD Pediatric Gastroenterology Staff [facility] CC: Maria Elena Lara, DIRECTOR OF ANNUAL GIVING-C [address] [facility] [address] [facility] IgAon 10-27-2018 IgA [Mass/Vol] 321 mg/dL Normal 78-[address] [facility] Comment on above: Performed By: #### F T4, WSR, IGA ####[facility] [place], [place] [phone] Lipaseon 10-27-2018 Lipase [Catalytic activity/Vol] 20 U/L Normal 16-[address] [facility] Comment on above: Result Comment: (NOT E) Reference ranges for this patient's age group have not been established. These reference ranges reflect verified or established ranges for the adult population. Interpret these ranges with caution using the clinical context and additional reference resources. Performed By: #### A MYL, CRP, LIPA, VITD, ENDOMY, GLIIGA, TGIGA #### [facility] [address] [place], [place] [address] Sed Rate Westergrenon 2018 Sed Rate Westergren 27 mm/hr High 0-20 [facility] Comment on above: Performed By: #### F T4, WSR, IGA ####[facility] [address] [place], [place] [phone] TSHon 10-27-2018 TSH Qn 3.470 uU/mL Normal 0.510-4.[address] [facility] Comment on above: Result Comment: Refe rence ranges were not locally established for this patient's age group. The normal values are based on the following source: Dru W, Kimberly V. Reference Ranges for Adults and Children: Pre-analytical Considerations. [facility] Performed By: #### F T4, WSR, IGA ####[facility], [place] [phone] Transglutaminase IgAon 10-27 Transglutaminase IgA 3 Units Normal <20 [facility] Comment on above: Result Comment: Nega tive : < 20 Units Weak Positive : 20 - 30 Units Moderate Pos to Strong Pos: >30 Units The following results were obtained with the [employer] QUANTA Lite h-tTG IgA MIKE. h-tTG IgA values obtained with different manufacturers' assay methods may not be used interchangeably. The magnitude of the reported IgA levels cannot be correlated to an endpoint titer. Performed By: #### A MYL, CRP, LIPA, VITD, ENDOMY, GLIIGA, TGIGA ####[facility], [place] [phone] Vitamin D 25 Hydroxyon 10-27 Vitamin D 25 Hydroxy 15.8 ng/mL Low 31.0-80.0 [facility] Comment on above: Result Comment: Clas sification of 25 [place] Vitamin D status: Insufficiency/Moderate Deficiency: < or = 30 ng/mL Sufficiency/Optimal Levels: 31 to 80 ng/mL Toxicity: > 100 ng/mL Test performed by chemiluminescent immunoassay. Performed By: #### A MYL, CRP, LIPA, VITD, ENDOMY, GLIIGA, TGIGA #### [facility] [address] [place], [place] [address] Message - General Officeon 0 08-07-2018 Message [...] they revieved a voicemail. Contacted per at [phone] and advised of above. Normal [facility] Vital Signs Date Time Vital Sign Value Performing Clinician Facility 09-15-2024 11:08-0400 Body weight 109.86 kg Mimi REES Work Phone: [facility] 09-15-2024 11:08-0400 Diastolic blood pressure 70 mm[Hg] Mimi REES Work Phone: [facility] 09-15-2024 11:08-0400 Systolic blood pressure 122 mm[Hg] Mimi REES Work Phone: [facility] 09-10-2024 14:23-0400 Body height 165.1 cm Lori Rao MD Work Phone: [facility] 09-10-2024 14:23-0400 Body mass index (BMI) [Ratio] 40.27 kg/m2 Lori Rao MD Work Phone: [facility] 09-10-2024 14:23-0400 Body temperature 98.29 [degF] Lori Rao MD Work Phone: [facility] 09-10-2024 14:23-0400 Body weight 109.77 kg Lori Rao MD Work Phone: [facility] 09-10-2024 14:23-0400 Diastolic blood pressure 67 mm[Hg] Lori Rao MD Work Phone: [facility] 09-10-2024 14:23-0400 Heart rate 112 /min Lori Rao MD Work Phone: [facility] 09-10-2024 14:23-0400 Systolic blood pressure 93 mm[Hg] Lori Rao MD Work Phone: [facility] 09-09-2024 13:27-0400 Body weight 109.32 kg Dwaine Peraza NP Work Phone: [facility] 09-09-2024 13:27-0400 Diastolic blood pressure 64 mm[Hg] Dwaine Peraza NP Work Phone: [facility] 09-09-2024 13:27-0400 Systolic blood pressure 106 mm[Hg] Dwaine Peraza NP Work Phone: [facility] 09-04-2024 12:24-0400 Diastolic blood pressure 65 mm[Hg] Jorge Tellez MD Work Phone: [facility] 09-04-2024 12:24-0400 Heart rate 69 /min Jorge Tellez MD Work Phone: [facility] 09-04-2024 12:24-0400 Systolic blood pressure 98 mm[Hg] Jorge Tellez MD Work Phone: [facility] 08-26-2024 11:43-0400 Body weight 107.62 kg Yony Brittany DO Work Phone: [facility] 08-26-2024 11:43-0400 Diastolic blood pressure 62 mm[Hg] Yony Brittany DO Work Phone: [facility] 08-26-2024 11:43-0400 Systolic blood pressure 102 mm[Hg] Yony Brittany DO Work Phone: [facility] 07-30-2024 10:32-0400 Body height 167.6 cm Elvis Maria MD Work Phone: [facility] 07-30-2024 10:32-0400 Body mass index (BMI) [Ratio] 37.93 kg/m2 Elvis Maria MD Work Phone: [facility] 07-30-2024 10:32-0400 Body weight 106.59 kg Elvis Maria MD Work Phone: [facility] 07-30-2024 10:32-0400 Diastolic blood pressure 73 mm[Hg] Elvis Maria MD Work Phone: [facility] 07-30-2024 10:32-0400 Heart rate 86 /min Elvis Maria MD Work Phone: [facility] 07-30-2024 10:32-0400 Systolic blood pressure 116 mm[Hg] Elvis Maria MD Work Phone: [facility] 07-09-2024 10:06-0400 Body weight 104.24 kg Mimi REES Work Phone: [facility] 07-09-2024 10:06-0400 Diastolic blood pressure 78 mm[Hg] Mimi Pool PA Work Phone: [facility] 07-09-2024 10:06-0400 Systolic blood pressure 120 mm[Hg] Mimi Pool PA Work Phone: [facility] 04-23-2024 10:17-0500 Body weight 99.7 kg Yony Brittany DO Work Phone: [facility] 04-23-2024 10:17-0500 Diastolic blood pressure 70 mm[Hg] Yony Brittany DO Work Phone: [facility] 04-23-2024 10:17-0500 Systolic blood pressure 120 mm[Hg] Yony Brittany DO Work Phone: [facility] 10-25-2022 10:17-0400 Body temperature 98.06 [degF] Jose Duran [facility] 10-25-2022 10:17-0400 Diastolic blood pressure 80 mm[Hg] Jose Duran [facility] 10-25-2022 10:17-0400 Heart rate 94 /min Jose Duran [facility] 10-25-2022 10:17-0400 Respiratory rate 18 /min Jose Duran [facility] 10-25-2022 10:17-0400 SaO2% (BldA) [Mass fraction] 99 % Jose Duran [facility] 06-29-2023 10:17-0400 Systolic blood pressure 124 mm[Hg] Jose Roger [facility] 12-07-2021 19:19-0400 Body temperature 98.24 [degF] Lashonylinn Dokken [facility] 12-07-2021 19:19-0400 Diastolic blood pressure 92 mm[Hg] Lashonylinn Dokken [facility] 12-07-2021 19:19-0400 Heart rate 114 /min Sdinn Dokken [facility] 12-07-2021 19:19-0400 Respiratory rate 16 /min Lashonylinn Dokken [facility] 12-07-2021 19:19-0400 SaO2% (BldA) [Mass fraction] 98 % Sdinn Dokken [facility] 12-07-2021 19:19-0400 Systolic blood pressure 143 mm[Hg] Lashonylinn Dokken [facility] 12-06-2021 07:58-0400 Body temperature 98.06 [degF] Jose Roger [facility] 12-06-2021 07:58-0400 Diastolic blood pressure 80 mm[Hg] Jose Roger [facility] 12-06-2021 07:58-0400 Heart rate 86 /min Jose Roger [facility] 12-06-2021 07:58-0400 Respiratory rate 16 /min Jose Roger [facility] 12-06-2021 07:58-0400 SaO2% (BldA) [Mass fraction] 100 % Jose Roger [facility] 12-06-2021 07:58-0400 Systolic blood pressure 121 mm[Hg] Jose Duran [facility] Encounters Encounter Date Encounter Type Care Provider Facility Start: 09-15-2024 End: 09-15-2024 Bamboo flowsheet Mimi REES Work Phone: [facility] Start: 09-15-2024 End: 09-15-2024 Bamboo flowsheet Mimi REES Work Phone: [facility] Start: 09-15-2024 End: 09-15-2024 Clinisync Result Encounter Dwaine Peraza NP Work Phone: [facility] Unsolicited Start: 09-15-2024 End: 09-15-2024 Office outpatient visit 15 minutes Mimi REES Work Phone: [facility] Comment on above: 35 weeks gestation o f ; Third trimester Start: 09-10-2024 End: 09-10-2024 ambulatory [facility] Start: 09-10-2024 End: 09-10-2024 Office consultation new/estab patient 60 min Lori Rao MD Work Phone: [facility] Comment on above: hydronephrosis during , antepartum, single or unspecified fetus (Primary Dx); Abnormal ultrasonic finding on screening of mother, antepartum Start: 09-10-2024 End: 09-10-2024 [facility] LORI RAO [facility] Start: 09-09-2024 End: 09-09-2024 Bamboo flowsheet Dwaine Peraza NP Work Phone: [facility] Start: 09-09-2024 End: 09-09-2024 Bamboo flowsheet Dwaine Peraza DIRECTOR OF ANNUAL GIVING Work Phone: [facility] Start: 09-09-2024 End: 09-09-2024 Office outpatient visit 15 minutes Dwaine Peraza NP Work Phone: [facility] Comment on above: Third trimester preg [place]; 35 weeks gestation of ; with normal glucose tolerance test (GTT); supraventricular tachycardia Start: 09-09-2024 End: 09-09-2024 ambulatory DWAINE PERAZA Not Available Start: 09-04-2024 End: 09-04-2024 Office outpatient visit 25 minutes Jorge Tellez MD Work Phone: [facility] Comment on above: hydronephrosis during , antepartum, single or unspecified fetus (Primary Dx) Start: 09-04-2024 End: 09-04-2024 ambulatory [facility] Start: 09-04-2024 End: 09-04-2024 ambulatory [facility] Start: 08-26-2024 End: 08-26-2024 [...] Telephone encounter Gabbi John RN Work Phone: [facility] Start: 08-05-2024 End: 08-05-2024 Telephone encounter Margarette Jessica RN [facility] Start: 07-30-2024 End: 07-30-2024 Office consultation new/estab patient 60 min Elvis Maria MD Work Phone: [facility] Comment on above: 29 weeks gestation o f (Primary Dx); Pyelectasis of fetus on ultrasound; hydronephrosis during , antepartum, single or unspecified fetus; Family history of congenital or genetic condition Start: 07-30-2024 End: 07-30-2024 ambulatory ELVIS MARIA [facility] Start: 07-30-2024 End: 07-30-2024 [facility] Start: 07-22-2024 End: 07-23-2024 Lab Drop off Lino Hamilton [facility] Start: 07-22-2024 End: 07-23-2024 ambulatory Lino Hamilton [facility] Start: 07-09-2024 End: 07-09-2024 Bamboo flowsheet Mimi REES Work Phone: [facility] Start: 07-09-2024 End: 07-09-2024 Bamboo flowsheet Mimi REES Work Phone: [facility] Start: 07-09-2024 End: 07-09-2024 Office outpatient visit 15 minutes Mimi REES Work Phone: [facility] Comment on above: 26 [...] Clinisync Result Encounter Mimi REES Work Phone: [facility] External Department Unsolicited Start: 05-20-2024 End: [...] 03-12-2024 End: 03-12-2024 flow sheet Sarah Mckeon DIRECTOR OF ANNUAL GIVING Work Phone: [facility] Comment on above: GA: [id number] Start: 10-31-2022 End: 10-31-2022 Patient encounter procedure Ivelisse Leger [facility] Start: 10-25-2022 End: 10-25-2022 Emergency department patient visit Jose Duran [facility] Start: 12-07-2021 End: 12-07-2021 Emergency department patient visit Virginie Cedrick Raj [facility] Start: 12-06-2021 End: 12-06-2021 Emergency department patient visit Jose Duran [facility] Start: 05-08-2021 End: 08-06-2021 Patient encounter procedure Kwasi Pop III [facility] Start: 08-28-2018 Patient encounter procedure Maria Elena Patino madyson Facility:CD:[id number] Start: 08-06-2018 End: 08-07-2018 Patient encounter procedure Maria Elena Lara Facility:CD: [id number] Procedures Date Procedure Procedure Detail Performing Clinician Start: 09-15-2024 US OB BPP W NON-STRESS Dwaine Peraza NP Work Phone: Start: 09-15-2024 Urnls dip stick/tabl et rgnt non-auto w/o micrscp Mimi REES Work Phone: Start: 08-26-2024 Urnls dip stick/tabl et rgnt non-auto w/o micrscp Yony Brittany DO Work Phone: Start: 07-09-2024 Urnls dip [...] Start: 04-29-2003 bilateral tubes in ears Kwasi Henningers III Plan of Treatment Date Care Activity Detail Author Start: 05-20-2027 Screening for malign ant neoplasm of cervix Pap Smear [facility] Start: 09-10-2025 Adult BMI Screening Adult BMI Screen ing [facility] Start: 09-10-2025 Tobacco Screening Tobacco Screening [facility] Start: 09-04-2025 Tobacco Screening Tobacco Screening [facility] Start: 07-30-2025 Adult BMI Screening Adult BMI Screen ing [facility] Start: 07-30-2025 Tobacco Screening Tobacco Screening [facility] Start: 07-30-2025 End: 07-30-2025 Unlisted Lab Test Unlisted Lab Test Lab Routine Pyelectasis of fetus on ultrasound Expected: 07/30/2025 (Approximate), Expires: 07/30/2025 [facility] Work Phone: Comment on above: Expected: 07/30/2025 (Approximate), Expires: 07/30/2025 Start: 07-30-2025 End: 07-30-2025 US MFM with or without consult US MFM with or without consult Imaging Routine Pyelectasis of fetus on ultrasound Expected: 07/30/2025 (Approximate), Expires: 07/30/2025 [facility] Comment on above: Expected: 07/30/2025 (Approximate), Expires: 07/30/2025 Start: 12-28-2024 Influenza vaccination [facility] Start: 10-05-2024 End: 10-05-2024 Patient encounter procedure 10/05/2024 3:15 PM EDT Appointment [facility] [place] [id number] [place] [address] [facility] [place] Start: 09-22-2024 End: 09-22-2024 Patient encounter procedure 09/22/2024 10:30 AM EDT Routine [facility] [address] [address] Yony Soto DO [address] [place], [place] [id number] [facility] Start: 09-15-2024 End: 09-15-2025 CULTURE, GROUP B STREP WITH SUSCEPTIBLITY CULTURE, GROUP B STREP WITH SUSCEPTIBLITY Lab Routine Third trimester Expected: 09/15/2024, Expires: 09/15/2025 [facility] Work Phone: Comment on above: Expected: 09/15/2024 , Expires: 09/15/2025 Start: 09-15-2024 End: 09-15-2024 Patient encounter procedure 09/15/2024 10:20 AM EDT Routine [facility] [address] [place] [address] Mimi Lanza PA [address] [place] [address] [facility] Start: 09-11-2024 End: 09-11-2024 Patient encounter procedure 09/11/2024 8:00 AM EDT Office Visit [facility] [address] [place] [address] Evelyn Fleming MD [address] [place] [address] [facility] Start: 09-10-2024 End: 09-10-2024 Patient encounter procedure [facility] Start: 09-09-2024 End: 03-12-2025 [...] 2:00 PM EDT Telemedicine [facility] [address] [place] [address] Elvis Maria MD [address] [place] [address] [facility] Start: 08-28-2024 End: 08-28-2024 Patient encounter procedure [facility] [place] Start: 08-10-2024 End: 08-10-2024 Patient encounter procedure 08/10/2024 10:10 AM EDT Routine [facility] [address] [place] [id number] Yony Soto DO [address] [place], [place] [id number] [facility] Start: 07-09-2024 End: 07-09-2025 CBC panel - Blood by Automated count CBC Lab Routine Diabetes mellitus screening Expected: 07/09/2024 (Approximate), Expires: 07/09/2025 [facility] Work Phone: Comment on above: Expected: 07/09/2024 (Approximate), Expires: 07/09/2025 Start: 07-09-2024 End: 07-09-2025 Measurement of glucose 1 hour after glucose challenge for glucose tolerance test Glucose tolerance, 1 hour Lab Routine Diabetes mellitus screening Expected: 07/09/2024 (Approximate), Expires: 07/09/2025 [facility] Comment on above: Expected: 07/09/2024 (Approximate), Expires: 07/09/2025 Start: 07-09-2024 End: 07-09-2024 Patient encounter procedure 07/09/2024 10:30 AM EDT Routine [facility] [address] [address] Mimi Lanza PA [address] [place] [address] Arrived [facility] Comment on above: Arrived Start: 06-18-2024 End: 06-18-2024 Patient encounter procedure 06/18/2024 1:30 PM EST Routine [facility] [address] [place] [phone] Mimi Lanza, PA [address] [place], [place] [id number] [facility] Start: 06-02-2024 End: 06-02-2024 Professional / ancillary services management 06/02/2024 2:30 PM EST Ancillary Procedure [facility] [address] [place] [address] [facility] Start: 05-20-2024 End: 07-18-2024 [...] 10:30 AM EST Routine [facility] [address] [place] [address] [place] [phone] Mimi Lanza PA [address] [place] [address] [place] [address] [facility] Start: 04-23-2024 End: 05-24-2024 Alpha fetoprotein, maternal Alpha fetoprotein, maternal Lab Routine 15 weeks gestation of Expected: 04/23/2024 (Approximate), Expires: 05/24/2024 [facility] Work Phone: Comment on above: Expected: 04/23/2024 (Approximate), Expires: 05/24/2024 Start: 04-23-2024 End: 04-23-2024 Patient encounter procedure 04/23/2024 9:30 AM EST Routine [facility] [address] [facility] [id number] Yony Soto DO [facility] [place] [address] [facility] Start: 04-15-2024 End: 04-15-2024 Professional / ancillary services management 04/15/2024 11:00 AM EST Ancillary Procedure [facility] [address] [place] [address] [facility] Start: 04-11-2024 End: 03-12-2025 ABO/Rh ABO/Rh Lab Routine Encounter for supervision of normal first in first trimester 9 weeks gestation of Expected: 04/11/2024 (Approximate), Expires: 03/12/2025 [facility] Work Phone: Comment on above: Expected: 04/11/2024 (Approximate), Expires: 03/12/2025 Start: 04-11-2024 End: 03-12-2025 Antibody screen Antibody screen Lab Routine Encounter for supervision of normal first in first trimester 9 weeks gestation of Expected: 04/11/2024 (Approximate), Expires: 03/12/2025 [facility] Comment on above: Expected: 04/11/2024 (Approximate), Expires: 03/12/2025 Start: 04-11-2024 End: 03-12-2025 Bacteria identified in Urine by Culture Urine culture Microbiology Routine Encounter for supervision of normal first in first trimester 9 weeks gestation of Expected: 04/11/2024 (Approximate), Expires: 03/12/2025 [facility] Comment on above: Expected: 04/11/2024 (Approximate), Expires: 03/12/2025 Start: 04-11-2024 End: 03-12-2025 CBC W Auto Differential panel - Blood CBC and differential Lab Routine Encounter for supervision of normal first in first trimester 9 weeks gestation of Expected: 04/11/2024 (Approximate), Expires: 03/12/2025 [facility] Comment on above: Expected: 04/11/2024 (Approximate), Expires: 03/12/2025 Start: 04-11-2024 End: 03-12-2025 Drugs of abuse panel - Urine by Screen method Rapid drug screen, urine Lab Routine Encounter for supervision of normal first in first trimester 9 weeks gestation of Expected: 04/11/2024 (Approximate), Expires: 03/12/2025 [facility] Comment on above: Expected: 04/11/2024 (Approximate), Expires: 03/12/2025 Start: 04-11-2024 End: 03-12-2025 Hemoglobin A1c/Hemoglobin.total in Blood Hemoglobin A1c Lab Routine Encounter for supervision of normal first in first trimester 9 weeks gestation of Expected: 04/11/2024 (Approximate), Expires: 03/12/2025 [facility] Comment on above: Expected: 04/11/2024 (Approximate), Expires: 03/12/2025 Start: 04-11-2024 End: 03-12-2025 Hepatitis B virus surface Ag [Presence] in Serum or Plasma by Immunoassay Hepatitis B surface Ag Lab Routine Encounter for supervision of normal first in first trimester 9 weeks gestation of Expected: 04/11/2024 (Approximate), Expires: 03/12/2025 [facility] Comment on above: Expected: 04/11/2024 (Approximate), Expires: 03/12/2025 Start: 04-11-2024 End: 03-12-2025 HIV-1/HIV-2 antigen/antibody combination immunoassay HIV-1 and HIV-2 antibodies Lab Routine Encounter for supervision of normal first in first trimester 9 weeks gestation of Expected: 04/11/2024 (Approximate), Expires: 03/12/2025 [facility] Comment on above: Expected: 04/11/2024 (Approximate), Expires: 03/12/2025 Start: 04-11-2024 End: 03-12-2025 Reagin Ab [Presence] in Serum by RPR RPR Lab Routine Encounter for supervision of normal first in first trimester 9 weeks gestation of Expected: 04/11/2024 (Approximate), Expires: 03/12/2025 [facility] Comment on above: Expected: 04/11/2024 (Approximate), Expires: 03/12/2025 Start: 04-11-2024 End: 03-12-2025 Rubella IgG Rubella IgG Lab Routine Encounter for supervision of normal first in first trimester 9 weeks gestation of Expected: 04/11/2024 (Approximate), Expires: 03/12/2025 [facility] Comment on above: Expected: 04/11/2024 (Approximate), Expires: 03/12/2025 Start: 04-02-2024 End: 04-02-2024 ambulatory 04/02/2024 1:40 PM EST Initial [facility] [address] [address] Sarah Mckeon DIRECTOR OF ANNUAL GIVING [address] [place] [address] [facility] Start: 03-23-2024 End: 03-23-2024 Professional / ancillary services management 03/23/2024 4:00 PM EST Ancillary Procedure [facility] [address] [address] [facility] Start: 2021 DTaP,Tdap and Td Vaccines (2 - Tdap) DTaP,Tdap and Td Vaccines (2 - Tdap) [facility] Start: 01-15-2020 Adult BMI Follow Up Plan Adult BMI Follow Up Plan [facility] Start: 01-15-2020 Adult BMI Screening Adult BMI Screen ing [facility] Start: 2014 Depression Screening Depression Scre ening [facility] Cytology Cervical or vaginal smear or scraping study Pap Smear Pathology and Cytology Routine Well woman exam with routine gynecological exam Ordered: 05/20/2024 [facility] Work Phone: Comment on above: Ordered: 05/20/2024 Hemoglobin A1c/Hemoglobin.total in Blood Hemoglobin A1c Lab Routine with normal glucose tolerance test (GTT) Ordered: 09/09/2024 [facility] Work Phone: Comment on above: Ordered: 09/09/2024 Immunizations Immunization Date Immunization Notes Care Provider Fa cility 04-17-2021 meningococcal B vaccine, fully recombinant Jose Duran [facility] 02-24-2021 meningococcal ACWY vaccine, unspecified formulation Jose Duran [facility] Comment on above: Result Comment: 2021: VFC STOCK USED 02-24-2021 meningococcal B vaccine, fully recombinant Jose Duran [facility] Comment on above: Result Comment: 2021: VFC STOCK BORROWED 11-12-2016 hepatitis A vaccine, adult dosage Kwasi Pop III [facility] 11-12-2016 HPV, unspecified formulation Kwasi Pop III [facility] 12-16-2015 hepatitis A vaccine, adult dosage Kwasi Pop III [facility] 12-16-2015 HPV, unspecified formulation Kwasi Pop III [facility] 12-16-2015 meningococcal ACWY vaccine, unspecified formulation Kwasi Pop III [facility] 12-16-2015 tetanus and diphther ia toxoids, adsorbed, preservative free, for adult use (2 Lf of tetanus toxoid and 2 Lf of diphtheria toxoid) Kwasi Pop III [facility] 12-31-2006 diphtheria, tetanus toxoids and acellular pertussis vaccine Jose Duran [facility] 12-31-2006 measles, mumps and rubella virus vaccine Kwasi Pop III [facility] 12-31-2006 poliovirus vaccine, unspecified formulation Kwasi Pop III [facility] 12-31-2006 tetanus toxoid, reduced diphtheria toxoid, and acellular pertussis vaccine, adsorbed Kwasi Pop III [facility] 01-17-2004 influenza virus vaccine, unspecified formulation Jose Duran [facility] 01-17-2004 pneumococcal conjuga te vaccine, 13 valent Kwasi Pop III [facility] 08-18-2003 DTaP, unspecified formulation Jose Duran [facility] 08-18-2003 haemophilus influenz ae type b vaccine, HbOC conjugate Kwasi Pop III [facility] 04-27-2003 DTaP, unspecified formulation Jose Duran [facility] 04-27-2003 haemophilus influenz ae type b vaccine, HbOC conjugate Kwasi Pop III [facility] 04-27-2003 hepatitis B vaccine, adult dosage Kwasi Pop III [facility] 04-27-2003 influenza virus vaccine, unspecified formulation Jose Duran [facility] 04-27-2003 pneumococcal conjuga te vaccine, 13 valent Kwasi Pop III [facility] 04-27-2003 poliovirus vaccine, unspecified formulation Kwasi Pop III [facility] 04-27-2003 tetanus toxoid, reduced diphtheria toxoid, and acellular pertussis vaccine, adsorbed Kwasi Pop III [facility] 01-29-2003 DTaP, unspecified formulation Jose Duran [facility] 01-29-2003 haemophilus influenz ae type b vaccine, HbOC conjugate Kwasi Pop III [facility] 01-29-2003 hepatitis B vaccine, adult dosage Kwasi Pop III [facility] 01-29-2003 measles, mumps and rubella virus vaccine Kwasi Pop III [facility] 01-29-2003 poliovirus vaccine, unspecified formulation Kwasi Pop III [facility] 01-29-2003 tetanus toxoid, reduced diphtheria toxoid, and acellular pertussis vaccine, adsorbed Kwasi Pop III [facility] 01-29-2003 varicella virus vaccine Kwasi Pop III [facility] 2002 DTaP, unspecified formulation Jose Roger [facility] 2002 haemophilus influenz ae type b vaccine, HbOC conjugate Kwasi Pop III [facility] 2002 hepatitis B vaccine, adult dosage Kwasi Pop III [facility] 2002 pneumococcal conjuga te vaccine, 13 valent Kwasi Pop III [facility] 2002 poliovirus vaccine, unspecified formulation Kwasi Pop III [facility] 2002 tetanus toxoid, reduced diphtheria toxoid, and acellular pertussis vaccine, adsorbed Kwasi Pop III [facility] 2002 hepatitis B vaccine, adult dosage Kwasi Pop III [facility] NEGATED: Highlighted row has not occurred!08-28-2018 influenza virus vaccine, unspecified formulation Kwasi Pop III [facility] Payers Date Payer Category Payer Unknown [id number] 2024 Medicaid (Managed Care) [facility]ICA[facility] [id number] 2024 Medicaid HMO [id number] 2024 Medicaid [id number] 2024 Unknown [id number] 2022 Unknown [id number] 2018 Unknown [id number] 2002 Unknown [id number] 2.16.840.1.578190.3.579.2. 727 2002 Unknown [id number] 2.16.840.1.900863.3.579.2. 727 2002 Unknown [id number] 2.16.840.1.960136.3.579.2. 1259 2002 Unknown [id number] 2.16.840.1.150598.3.579.2. 1259 2002 Unknown [id number] 2.16.840.1.818126.3.579.2. 1259 2002 Unknown [id number] 2.16.840.1.676730.3.579.2. 1259 2002 Unknown [id number] 2.16.840.1.396218.3.579.2. 1259 2002 Unknown [id number] 2.16.840.1.816713.3.579.2. 1259 2002 Unknown [id number] 2.16.840.1.870088.3.579.2. 1286 2002 Unknown [id number] 2.16.840.1.146742.3.579.2. 1286 2002 Unknown [id number] 2.16.840.1.867019.3.579.2. 1286 2002 Unknown [id number] 2.16.840.1.003684.3.579.2. 1286 2002 Unknown [id number] 2.16.840.1.475344.3.579.2. 1286 2002 Unknown [id number] 2.16.840.1.597520.3.579.2. 1286 1978 Unknown [id number] 2.16.840.1.224307.3.579.2. 727 1978 Unknown [id number] 2.16.840.1.945753.3.579.2. 727 Social History Date Type Detail Facility Start: 06-15-2021 End: 03-12-2024 Tobacco smoking status Never smoked tobacco (finding) [facility] Comment on above: denies Denies Tobacco smoking status Never [facility] Comment on above: denies Denies Start: 03-12-2024 End: 07-30-2024 Sex Assigned At Female [facility] Start: 03-12-2024 End: 07-30-2024 Tobacco use and exposure Smokeless tobacco non-user [facility] Start: 03-12-2024 End: 09-15-2024 Alcoholic beverage intake Ex-drinker (finding) [facility] [...] Sex assigned at Not on file [place] [facility] Sexual Orientation [facility] Start: 08-10-2009 End: 07-10-2024 Sex Female (finding) [facility] Start: 07-30-2024 End: 09-10-2024 Alcoholic beverage intake Lifetime non-drinker (finding) [employer] [facility] Functional Status Date Assessment Result Facility 10-25-2022 Functional Status N/A [facility] 12-07-2021 Functional Status N/A [facility] 12-06-2021 Functional Status N/A [facility] Clinical Notes 07-05-2021 to 09-15-2024 CABRERA Pérez - 09/15/2024 10:20 AM Blake Rao MD - 09/10/2024 2:30 PM EDTFrieda Sanders CMA - 09/10/2024 2:30 PM EDTPatibob Peraza NP - 09/09/2024 1:00 PM EDT Note Date & Type Note Facility 09-15-2024 History of Presen t illness Narrative Reason [...] week for routine OB appointment Documented by CABRERA Pérez on behalf of: CABRERA Pérez documented in this encounter [facility] 09-10-2024 History of Presen t illness Narrative Referring Physician: Elvis Maria Md [address], [address] [place] [id number] [facility] April Puente is a 24 y.o. female that was referred to the pediatric urology clinic for hydronephrosis discovered on ultrasounds. The condition was first noted to be present on ultrasound performed at 28 weeks gestation due to an [facility] referral for cardiac concerns (OB couldn't [...] 1 kidney. It was removed as an (looked like a bag of grapes) possible [...] Ms. Puente is planning to deliver at [facility]. At this time I would recommend getting [...] patient/family/caregiver Referring and communicating with other health director career (not separately reported) Documenting clinical information in [...] no records available [facility] Instructions Lori Rao MD - 09/10/2024 2:30 PM EDT The possible causes of hydronephrosis in an infant include bladder outlet obstruction, ureteropelvic junction obstruction and vesicoureteral reflux. I recommend getting a renal ultrasound after the is delivered. We will plan to do it around 2 weeks of a age when we see the baby in the office. A test called a VCUG will also need to be performed. This test will further evaluate for vesicoureteral reflux (VUR). This we will need to be performed at [facility]. I would also recommend that your [...] has been delivered. documented in this encounter [facility] 09-09-2024 History of Presen t illness Narrative [...] nursing note reviewed. Exam conducted with a lead sprinkler present. Vitals: Estimated body mass index is [...] Dwaine Peraza NP documented in this encounter [facility] 09-04-2024 History of Presen t illness [...] in 2 weeks for rhythm check at [facility] office. 2. Growth ultrasounds in 4 weeks at [facility] office 3. Continue testing at her OB [...] for allowing me to participate in [facility]. If there are any questions, please do not hesitate to call me. Sincerely, JORGE TELLEZ MD Video Visit via Real-time Synchronous Audiovisual Provider Location: [facility] AT [address] [phone] Patient Location: Other [facility] office [place]. Patient Location Tailoring Teacher: None Video Visit Consent Statement: I discussed [...] that there are some limitations compared to tmsr-zs-avyl evaluations. We elected to proceed. documented in this encounter [facility] 08-26-2024 History of Presen t illness Narrative [...] nursing note reviewed. Exam conducted with a lead sprinkler present. Vitals: Estimated body mass index is [...] Yony Soto DO documented in this encounter [facility] 08-17-2024 Miscellaneous Notes LVM to call office to schedule from referral. CLS documented in this encounter [facility] 08-17-2024 Telephone encounter Note LVM to call office to schedule from referral. CLS [facility] Work Phone: 08-05-2024 Miscellaneous Notes LVM with genetic testing results. Results came back low risk. Left callback number. documented in this encounter [facility] 08-05-2024 Telephone encounter Note LVM with genetic testing results. Results came back low risk. Left callback number. [facility] 07-30-2024 History of Presen t illness Narrative Video Visit via Real-time Synchronous Audiovisual Provider Location: [facility] AT [address] [phone] Patient Location: [facility] office Patient Location Tailoring Teacher: None Video Visit Consent Statement: I discussed [...] that there are some limitations compared to huir-ke-yboc evaluations. We elected to proceed. [facility] Maternal- Medicine Consult Note Reason For [...] Resource Strain: Low Risk (03/12/2024) Received from [facility] Overall Financial Resource Strain (CARDIA) Difficulty of Paying Living Expenses: Not hard at all Food Insecurity: No Food Insecurity (07/30/2024) Hunger Screening Food Insecurity - Worry: Never True Food Insecurity - Inability: Never True Transportation Needs: No Transportation Needs (03/12/2024) Received from [facility] PRAPARE - Transportation Lack of Transportation (Medical): No Lack of Transportation (Non-Medical): No Physical Activity: Sufficiently Active (03/12/2024) Received from [facility] Exercise Vital Sign Days of Exercise per Week: 4 days Minutes of Exercise per Session: 60 min Stress: No Stress Concern Present (03/12/2024) Received from [facility] [place] of Occupational Health - Occupational Stress Questionnaire Feeling of Stress : Only a little Social Connections: Moderately Integrated (03/12/2024) Received from [facility] Social Connection and Isolation Panel [NHANES] Frequency of Communication with Friends and Family: More than three times a week Frequency of Social Gatherings with Friends and Family: More than three times a week Attends Protestant Services: More than 4 times per year Active Member of Clubs or Organizations: No Attends Club or Organization Meetings: Never Marital Status: Living with partner Interpersonal Safety: Not At Risk (03/12/2024) Received from [facility] Humiliation, Afraid, Rape, and Kick questionnaire Fear of Current or Ex-Partner: No Emotionally Abused: No Physically Abused: No Sexually Abused: No Housing Instability: Low Risk (03/12/2024) Received from [facility] Housing Stability Vital Sign Unable to [...] - Unlisted Lab Test; Future - US [facility] with or without consult; Future 3. hydronephrosis [...] [place] dilation in 67%, improvement in 13% (Fred 2014 J Pediatr. Urol). We also reviewed that pending the clinical progression of the hydronephrosis some children are at risk for surgical interventions, long term care pharmacist renal dysfunction, hypertension and urinary tract infections. [...] the kidneys Growth ultrasounds q.4 weeks through [facility] Weekly NST and DVP starting 32 -34 [...] Elvis Maria MD, FACOG (she/hers) Maternal- Medicine [facility] [address] [facility] 1st [place] [address] This document was created with [employer] technology. Though I make every effort to review the dictation as it is transcribed, on occasion the spoken word can be misinterpreted by the technology leading to inappropriate words, phrases, or sentences. This note is addressed to the requesting provider as a consultation for clinical guidance. Specific medical abbreviations are occasionally used and those are generally approved by the [place]?Board of?Obstetrics and?Gynecology?as well as?Ashley s abbreviations. The above plan of care was based solely on the diagnoses for which a consultation was requested. ?More frequent testing may be indicated based on her other medical/obstetrical conditions. The management of other or medical conditions is beyond the scope of requested consultation and will continue to be followed by the primary landfill grader or primary care provider. Note to patient: The Cures Act makes medical notes like these [...] no Have you been seen here at [facility] in a previous ? N/a Recent ER visits or hospitalizations? no Bring blood sugar log or meter with you today? (Please bring them with you for every visit at [facility]) n/a Flu vaccine (Feb-June)? N/a Any concerns that you would like me to mention to the provider today? no documented in this encounter [facility] 07-22-2024 Note Patient Education Infectious Disease Upper [...] to help relieve symptoms, such as: ??? Vzjn-sbt-shpdixs cold medicines. ??? Cough suppressants. Coughing is [...] other clear broths. General instructions ??? Take dasd-ljy-cuzltjm and prescription medicines only as told by [...] and water are not available, use hand dinkey engine operator. ??? Avoid touching your mouth, face, [...] stiff neck. ? (more content not included)... [facility] 07-09-2024 History of Presen t illness Narrative [...] of: CABRERA Pérez documented in this encounter [facility] 05-20-2024 History of Presen t illness [...] nursing note reviewed. Exam conducted with a lead sprinkler present. Vitals: Estimated body mass index is [...] of: CABRERA Pérez documented in this encounter [facility] 04-23-2024 History of Presen t illness [...] nursing note reviewed. Exam conducted with a lead sprinkler present. Vitals: Estimated body mass index is [...] or undercooked meat, and stay away from [facility]. Patient has been consulted regarding any [...] Yony Soto DO documented in this encounter [facility] 03-12-2024 History of Presen t illness [...] will give to patient at dating [place], [facility] Daily vitamins OTC NatureMade PNV w/DHA & folic acid First trimester screening and second trimester screening discussed. Wants Genetic and Chromosomal Testing documented in this encounter [facility] 10-31-2022 Evaluation + Plan note Diagnostic Tests PendingFSH and LH 10/31/22Insulin Level Total 10/31/22Testosterone Level Total 10/31/22DHEAS 10/31/22 [facility] 10-25-2022 Evaluation + Plan note Extrac nohelia from: Title:ED Note Author:Carlos Han PA-C te:10/25/22 Hand contusion (S60.229A: Co ntusion of unspecified hand, initial encounter) Orders: XR Hand 3+ Views Right Future Appointments Appointment Date:10/31/2022 09:00:00 AM Scheduled Provider: Location:.[facility] Appointment Type:US Abdominal/Pelvis (FT) Future Scheduled Tests Radiology* US Pelvis Non-OB Complete 10/31/22 [facility]06-29-2023 Hospital Discharge instructions Patient Education 10/25/2022 [...] An elastic wrap to support your hand. Aukc-man-vsrnous medicines to control pain. Follow these instructions [...] sitting or lying down. General instructions Take muyy-bow-qabnlmo and prescription medicines only as told by [...] provider. Document Revised: 08/03/2021 Document Reviewed: 08/03/2021 [employer] Patient Education 2022 [employer]. Follow Up Care 10/25/2022 10:12:59 With:Kathy Kraus Address: [address] [place] [address] [phone] Business (1) When:10/28/2022 11:08:00 [facility]08-11-2022 Hospital Discharge instructions Patient Education 12/07/2021 19:56:20 Cellulitis, Adult, Ncku-wh-Ljft Cellulitis, Adult Cellulitis is a skin infection. [...] Follow these instructions at home: Medicines Take qqpp-rla-dvyxaem and prescription medicines only as told by [...] 10/01/2008 Document Revised: 09/04/2018 Document Reviewed: 09/04/2018 [employer] Patient Education 2020 [employer]. Follow Up Care 12/07/2021 19:18:58 With:Kathy Kraus Address: [address] [place] [phone] Business (1) When:12/10/2021 19:43:43 Comments:Take the antibiotics as prescribed you have completed the course. Please follow-up with your primary care doctor next 2 to 3 days. You can take the naproxen every 12 hours as needed for pain you can also take the [place] every 6 hours as needed for pain. Please return the ED for any new or worsening s ymptoms. [facility]08-11-2022 Evaluation + Plan noteExtracted from: Title:ED [...] Metabolic Panel 06/15/21 * Mononucleosis Screen 04/13/21 [facility]08-10-2022 Evaluation + Plan noteExtracted from: Title:ED Note Author:Carlos Han PA-C te:12/06/21 Otitis externa (H60.90: Unsp ecified otitis externa, unspecified ear) Orders: ciprofloxacin-dexamethasone otic, 4 drop(s), Ear-Right, BID for 7 day(s), 10 mL, Refill(s) 0, [facility]/pharmacy #[id number], 168, cm, 12/06/21 8:00:00 EDT, [...] Metabolic Panel 06/15/21 * Mononucleosis Screen 04/13/21 [facility]08-10-2022 Hospital Discharge instructions Patient Education 12/06/2021 [...] antibiotic even if your condition improves. Take mwwg-eda-fnqlyha and prescription medicines only as told by [...] 04/15/2006 Document Revised: 09/19/2018 Document Reviewed: 09/19/2018 [employer] Patient Education 2019 [employer] Follow Up Care 12/06/2021 07:57:14 With:Kathy Kraus Address: [address] [place] [address] [phone] Business (1) When:12/09/2021 08:05:03 [facility]03-09-2022 Evaluation + Plan note Future Scheduled [...] Metabolic Panel 06/15/21 * Mononucleosis [facility]21 [facility] Encounter for supervision of [...] hair follicles [facility] Diagnosis 26 weeks gestation of Second trimester state, incidental Diabetes mellitus screening Screening for diabetes mellitus [facility]* Diagnosis 29 weeks gestation of - Primary Pyelectasis of fetus on ultrasound hydronephrosis during , antepartum, single or unspecified fetus Family history of congenital or genetic condition [facility] Diagnosis Third trimester state, incidental 33 weeks gestation of [facility]* Diagnosis hydronephrosis during , antepartum, single or unspecified fetus- Primary [facility]* Diagnosis Third trimester state, incidental 35 weeks gestation of with normal glucose tolerance test (GTT) supraventricular tachycardia [facility] Diagnosis hydronephrosis during , antepartum, single or unspecified fetus- Primary Abnormal ultrasonic finding on screening of mother, antepartum [facility]* Diagnosis 35 weeks gestation of Third trimester state, incidental [facility] Narrative No data available for this section [facility] No data available for this section [facility]* Attachments The following attachments cannot be sent through Care Everywhere. * Preeclampsia (Brune[place]) [facility]Not on file documented in this [facility] SystemInstructionsNot on file documented in this [facility] SystemProgress note No data available for this section [facility] Summary Purpose Family History No Family [...] content) DATE CREATED AUTHOR 08/08/2018 [facility] DATE CREATED AUTHOR AUTHOR'S ORGANIZ ATION 02/10/[address] [facility] DATE CREATED AUTHOR AUTHOR'S ORGANIZ ATION 07/23/2024 [facility] DATE CREATED AUTHOR AUTHOR'S ORGANIZ ATION 07/25/2024 [facility] DATE CREATED AUTHOR AUTHOR'S ORGANIZ ATION 08/02/2024 [facility] DATE CREATED AUTHOR AUTHOR'S ORGANIZ ATION 09/10/2024 [facility] EPIC DATE CREATED AUTHOR AUTHOR'S ORGANIZ ATION 09/12/2024 [facility] DATE CREATED AUTHOR AUTHOR'S ORGANIZ ATION 09/12/2024 [facility] Care Team (unrecognized sect ion and content) Personnel Name: Kathy Kraus NP Address: [address] [place] [address] Personnel Name: Kathy Kraus NP Address: [address] [place] [address] Personnel Name: Kathy Kraus NP Address: Address: [address] [address] Personnel Name: Kathy Kraus NP Address: Address: [address] [place] [phone] Personnel Name: KATHY KRAUS NP Address: [address] [place], [place] [id number] Telecom: Reason for Visit (unrecogniz ed section and content) Reason Comments Routine Visit Reason Comments add on pyelectasis, hydronephrosis right kidney Reason Comments add on polyhydramnios add on PACs Reason Comments New Patient Specialty Diagnoses / Procedures Referred By Contac t Referred To Contact Pediatric Urology Diagnoses Abnormal ultrasonic finding on screening of mother, antepartum Elvis Maria MD [address] [facility], [address] [place] [address] Phone: tel: fax: Lori Rao MD [address] [place] [address] Phone: tel: fax: Referral ID Status Reason Start Date Expiration Date Visits Requested Visits Authorized [id number] Pending Review Specialty Services Required 08/13/2024 08/13/2025 [...] BE BASED ON THE PRIMARY CLINICAL RECORDS. [employer] provides no warranty or guarantee of the accuracy or completeness of information in this document.
== END 2024-09-15 19:37 | disposition home or self-care (01) ==
LOC: LAB 19:36
PROVIDERS: Visit Provider Physician Assistant
DX: Z34.93 Encounter for supervision of normal pregnancy, unspecified, third trimester (principal); Z3A.35 35 weeks gestation of pregnancy
CPT/HCPCS: 87081

== ENCOUNTER 2024-09-18 12:06 | Outpatient (OUT) | payer OTHER, SELFPAY ==
--- OUTSIDE RECORDS SUMMARY | 2024-09-15 10:30 | XMS_ITS ---
Author Name Auto Generated Organization OHIP Care Team Providers Care Community Services Officer Name Role Phone Lino Hamilton Admitting Unavailable Lino Hamilton Attending Unavailable Lino Hamilton Attending Unavailable NANCI SOTO Referring Unavailable DOLORES MARIA Attending Unavailable NANCI SOTO Referring Unavailable NANCI SOTO R Referring Unavailable JORGE TELLEZ Attending Unavailable NANCI SOTO Referring Unavailable THA RAO Attending Unavailable CANDACE, NIKOLINA P Referring Unavailable SANTI SOTOY R Referring Unavailable LESA ARAIZA Attending Unavailable LESA ARAIZA Referring Unavailable TEODORA, LESA Attending Unavailable NANCI SOTO Attending Unavailable VINH, DWAINE Attending Unavailable LESA ARAIZA Attending Unavailable JIMI MCKEON Attending Unavailable NANCI SOTO Attending Unavailable PROBLEMS DATE TYPE CONDITION / CODE ATTENDING STATUS [facility] 09/10/2024 Unknown Encounter for ot her screening follow-up / Z36.2(ICD-10) [facility] 09/10/2024 Unknown Abnormal ultraso nasima finding on screening of mother / O28.3(ICD-10) THA RAO [facility] 09/10/2024 Unknown New Patient / FREETEXT(AOF) MAIRA THA Aba [facility] 07/30/2024 Unknown Maternal care fo r other (suspected) abnormality and damage, genitourinary anomalies, not applicable or unspecified / O35.EXX0(ICD-10) JORGE TELLEZ [facility] 07/30/2024 Unknown add on pyelectas is, hydronephrosis right kidney / UNK(Unknown) DOLORES MARIA [facility] 07/30/2024 Unknown Encounter for ot her specified screening / Z36.89(ICD-10) [facility] PROCEDURES No Procedure Records Found RESULTS PATIENT EDUCATION Observed: 07/22/2024 2:53 PM Status: F Source: [facility] Patient Education Infectious Disease Upper Respiratory Infection, Adult An upper respiratory infection (URI) is a common viral infection of the nose, throat, and upper air passages that lead to the lungs. The most common type of URI is the common cold. URIs usually get better on their own, without medical treatment. What are the causes? A URI is caused by a virus. You may catch a virus by: ??? Breathing in droplets from an infected person's cough or sneeze. ??? Touching something that has been exposed to the virus (is contaminated) and then touching your mouth, nose, or eyes. What increases the risk? You are more likely to get a URI if: ??? You are very young or very old. ??? You have close contact with others, such as at work, school, or a health care facility. ??? You smoke. ??? You have long-term (chronic) heart or lung disease. ??? You have a weakened disease-fighting system (immune system). ??? You have nasal allergies or asthma. ??? You are experiencing a lot of stress. ??? You have poor nutrition. What are the signs or symptoms? A URI usually involves some of the following symptoms: ??? Runny or stuffy (congested) nose. ??? Cough. ??? Sneezing. ??? Sore throat. ??? Headache. ??? Fatigue. ??? Fever. ??? Loss of appetite. ??? Pain in your forehead, behind your eyes, and over your cheekbones (sinus pain). ??? Muscle aches. ??? Redness or irritation of the eyes. ??? Pressure in the ears or face. How is this diagnosed? This condition may be diagnosed based on your medical history and symptoms, and a physical exam. Your health care provider may use a swab to take a mucus sample from your nose (nasal swab). This sample can be tested to determine what virus is causing the illness. How is this treated? URIs usually get better on their own within 7?10 days. Medicines cannot cure URIs, but your health care provider may recommend certain medicines to help relieve symptoms, such as: ??? Nyzg-mcr-ncvwegr cold medicines. ??? Cough suppressants. Coughing is a type of defense against infection that helps to clear the respiratory system, so take these medicines only as recommended by your health care provider. ??? Fever-reducing medicines. Follow these instructions at home: Activity ??? Rest as needed. ??? If you have a fever, stay home from work or school until your fever is gone or until your health care provider says your URI cannot spread to other people (is no longer contagious). Your health care provider may have you wear a face mask to prevent your infection from spreading. Relieving symptoms ??? Gargle with a mixture of salt and water 3?4 times a day or as needed. To make salt water, completely dissolve ??1 tsp (3?6 g) of salt in 1 cup (237 mL) of warm water. ??? Use a cool-mist humidifier to add moisture to the air. This can help you breathe more easily. Eating and drinking ??? Drink enough fluid to keep your urine pale yellow. ??? Eat soups and other clear broths. General instructions ??? Take xxdg-uwm-layhyjc and prescription medicines only as told by your health care provider. These include cold medicines, fever reducers, and cough suppressants. ??? Do not use any products that contain nicotine or tobacco. These products include cigarettes, chewing tobacco, and vaping devices, such as e-cigarettes. If you need help quitting, ask your health care provider. ??? Stay away from secondhand smoke. ??? Stay up to date on all immunizations, including the yearly (annual) flu vaccine. ??? Keep all follow-up visits. This is important. How to prevent the spread of infection to others URIs can be contagious. To prevent the infection from spreading: ??? Wash your hands with soap and water for at least 20 seconds. If soap and water are not available, use hand dictaphone operator. ??? Avoid touching your mouth, face, eyes, or nose. ??? Cough or sneeze into a tissue or your sleeve or elbow instead of into your hand or into the air. Contact a health care provider if: ??? You are getting worse instead of better. ??? You have a fever or chills. ??? Your mucus is brown or red. ??? You have yellow or brown discharge coming from your nose. ??? You have pain in your face, especially when you bend forward. ??? You have swollen neck glands. ??? You have pain while swallowing. ??? You have white areas in the back of your throat. Get help right away if: ??? You have shortness of breath that gets worse. ??? You have severe or persistent: ? Headache. ? Ear pain. ? Sinus pain. ? Chest pain. ??? You have chronic lung disease along with any of the following: ? Making high-pitched whistling sounds when you breathe, most often when you breathe out (wheezing). ? Prolonged cough (more than 14 days). ? Coughing up blood. ? A change in your usual mucus. ??? You have a stiff neck. ??? You have changes in your: ? Vision. ? Hearing. ? Thinking. ? Mood. These symptoms may be an emergency. Get help right away. Call 911. ??? Do not wait to see if the symptoms will go away. ??? Do not drive yourself to the hospital. Summary ??? An upper respiratory infection (URI) is a common infection of the nose, throat, and upper air passages that lead to the lungs. ??? A URI is caused by a virus. ??? URIs usually get better on their own within 7?10 days. ??? Medicines cannot cure URIs, but your health care provider may recommend certain medicines to help relieve symptoms. This information is not intended to replace advice given to you by your health care provider. Make sure you discuss any questions you have with your health care provider. Document Revised: 11/15/2021 Document Reviewed: 11/15/2021 [employer] Patient Education ? 2023 [employer]. PATIENT LETTER [facility] Observed: 07/22/2024 2:39 PM Status: F Source: [facility] Patient Letter [facility] [address] [place] [address] [id number] July 22, 2024 ENRICO CASTILLO [address] [place] [address] : 2000 Please excuse ENRICO CASTILLO from work . Date and/or Time of Absence: From: 07/21/24 To: 07/24/24 May return to work on: 07/24/24 Restrictions: None Comments: Please excuse due to an acute illness. Provider Signature: Lino Hamilton PA-C Physician Tobacco Stemmer Machine [facility] [address] [place] [address] C THROAT Observed: 07/22/2024 2:35 PM Status: F Source: [facility] Microbiology PROCEDURE: Throat Culture [R1] SOURCE: Throat BODY SITE: COLLECTED DATE/TIME: 07/22/2024 14:35 EDT RECEIVED DATE/TIME: 07/22/2024 16:27 EDT START DATE/TIME: 07/22/2024 16:28 EDT FREE TEXT SOURCE: Lino Hamilotn PA-C, PA-C, Lino Frias FINAL REPORTS Final Report [] Verified Date/Time: 07/24/2024 07:15 EDT 2+ Normal throat lb isolated Performing Locations R1: This test was performed at: [facility], [address] [place] [address], [address] [place] [address], Performed By: #### [id number] # ### [facility] [address] [place] [id number] C THROAT Observed: 07/22/2024 2:35 PM Status: F Source: [facility] Microbiology PROCEDURE: Throat Culture [R1] SOURCE: Throat BODY SITE: COLLECTED DATE/TIME: 07/22/2024 14:35 EDT RECEIVED DATE/TIME: 07/22/2024 16:27 EDT START DATE/TIME: 07/22/2024 16:28 EDT FREE TEXT SOURCE: Lino Hamilton PA-C, PA-C, Lino Frias FINAL REPORTS Final Report [] Verified Date/Time: 07/24/2024 07:15 EDT 2+ Normal throat lb isolated Performing Locations R1: This test was performed at: [facility], [address] [place] [address], [address] [place] [address], Performed By: #### [id number] # ### [facility] [address] [place] [id number] FAMILY MEDICINE OFFICE/CLINI C NOTE Observed: 07/22/2024 1:58 PM Status: F Source: [facility] Family Medicine Office/Clini c Note Chief Complaint headache, sore throat HPI Staff 24 year old female presents for waking up yesterday throat irritated, nose bothering her, bilateral ear pain, diarrhea headache comes and goes, nasal/sinus congestion. Denies n/v, no fever that she is aware of. 28 weeks onset x1 day OTC: tylenol History of Present Illness I have reviewed and verified the staff HPI to be accurate for this encounter. Portions of this record have been created with voice recognition software. Occasional wrong-word or ???smhmr-k-kcwt??? substitutions may have occurred due to the inherent limitations of voice recognition software. 24 yo female presents today with cc of headache and sore throat. Patient states that she woke up yesterday with a irritated throat states that she has some congestion like her nose is boggy her bilateral ear pain. States she also developed diarrhea and headache. States the headache comes and goes. She denies any nausea or vomiting. She denies fever that she is aware of denies chills or bodyaches. States that she is currently 28 weeks . G1, P0 with no prior pregnancies. Patient states cough states is dry nonproductive. Denies any chest pain shortness of breath or difficulty breathing. States symptoms started on Saturday afternoon which she states she just kind of felt ran down and states yesterday she felt the worst in regards to body aches congestion headache in which she left work early. 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 She follows with CHARTER COORDIN[employer] Dr. Soto. Denies nausea or vomiting but does state loose stool. States that her little sister is now sick with similar symptoms but just came home from school today. Pt denies hx of asthma. States hx of smoking marijuana, but stopped because of . She has no other concerns at this time. Review of Systems PHQ Score Initial Depression Screen Score: 0 SCORE ROS negative unless otherwise stated in HPI. Physical Exam Vitals & Measurements T: 36.7 ???C(Oral) HR: 114(Peripheral) RR: 16 BP: 98/52 SpO2: 98% HT: 165 cm HT: 65 in WT: 233.91 lb WT: 106.1 kg BMI: 38.97 General:Pleasant young female, no acute distress, sitting upright in exam chair. Eyes:Bilateral conjunctiva wnl, no injection Ears:Bilateral TMs are wnl. No erythema or bulging. Bilateral external auditory canals are wnl no erythema or edema. Nose:mild nasal mucosa inflammation and edema no active drainage deformity or lesion Mouth:Moist mucous membranes. Uvula is midline. No acute tonsillar erythema, edema, or exudate. No signs of peritonsillar abscess. No trismus or drooling. Neck:no adenopathy Lungs:Lung sounds are clear bilaterally. No wheezing, rhonchi, or crackles on exam. Cardio:S1, S2, regular rhythm. No murmurs, gallops, or rubs. Abdomen:not assessed Musculoskeletal:not assessed Extremity:not assessed Neurologic:not assessed Skin:not assessed Mental Status:Alert and oriented x3. Normal mood and affect Assessment/Plan Patient had rapid strep, COVID-19 and influenza testing completed in office today which are all negative. Patient is updated in regards these negative results patient is treated in regards to viral URI with cough in which she may have cough or cold-like symptoms anywhere from a week to 2 weeks in duration the worst being in the first 3 to 5 days duration. Patient will follow closely with OB in regards to this viral illness will contact their office to ensure that plain Robitussin and Flonase is safe to take in which may help her treat her congestion and cough. Otherwise she will follow closely return if needed. Patient agrees and understands plan. 1. Viral URI with cough (J06.9: Acute upper respiratory infection, unspecified) Discussed exam and hx are consistent with viral illness. Advised of typical duration. Discussed antibiotics unfortunately do not treat viral illnesses, it will take time to run course- usually 7-14 days. Fluids/rest encouraged, PRN tylenol/ibuprofen for any pain. May use robitussion/flonase only with confirmation after speaking with OB for symptomatic tx. Follow up with PCP if not improving over next 7-10 days or significantly worsening symptoms. Patient verbalized understanding of tx plan. Sore throat (J02.9: Acute pharyngitis, unspecified) Rapid strep -. Given exam will send strep cx to confirm. No news is good news, if you do not hear from us, strep culture was Negative. If any GAS growth, will rx appropriate antibiotic and notify you. Discussed otherwise consistent with viral illness, typical duration 7-14 days. Fluids/rest, PRN tylenol/ibuprofen for pain and/or fever. May use salt water gargles and otc lozenges for pain. Fu with PCP if cx negative and not improving over next 3-5 days. Seek medical attention immediately for any increased difficulty swallowing, opening mouth, or difficulty managing oral secretions. Patient verbalized understanding of tx plan. Ordered: Influenza Type A&B POC 96975 Rapid COVID POC 90577 Rapid Strep POC 04030 Throat Culture Follow-up With When Contact Information PARAMJIT DOLL, [place] [address]- Additional Instructions: Patient Education Upper Respiratory Infection, Adult Problem List/Past Medical History Ongoing Bilateral otitis externa Body mass index 40+ - severely obese Cellulitis of face Chronic diarrhea Chronic diarrhea Contusion of hand COVID-19 Duodenal ulcer Fatty liver Fatty liver disease, nonalcoholic Gastroenteritis History of COVID-19 Morbid obesity with BMI of 40.0-44.9, adult Nausea and vomiting Nausea with vomiting Non-smoker Smoker Sore throat Steatosis of liver Ulcer of duodenum Historical Anxiety Left upper quadrant pain Strep throat Procedure/Surgical History bilateral tubes in ears (2003). Medications Multivitamins with Vitamin B Complex, Vitamin C, Minerals and L- Methylfolate oral capsule, 1 cap(s), Oral, Daily Allergies No Known Allergies No Known Medication Allergies Social History Alcohol - Denies Alcohol Use, 03/08/2020 Substance Abuse - High Risk, 10/02/2020 Current, Marijuana, 1-2 times per week, 10/02/2020 Tobacco - Denies Tobacco Use, 03/08/2020 Never (less than 100 in lifetime) Tobacco Use:. Never Smokeless Tobacco Use:. Household tobacco concerns: No., 07/22/2024 Never (less than 100 in lifetime) Tobacco Use:. Never Smokeless Tobacco Use:., 02/23/2021 Family History Family history is negative Immunizations Vaccine Date Status Comments meningococcal group B vaccine 04/17/2021 Recorded meningococcal group B vaccine 02/24/2021 Recorded 2021-12-09: VFC STOCK BORROWED meningococcal conjugate vaccine 02/24/2021 Recorded 2021-12-09: VFC STOCK USED influenza virus vaccine, inactivated - Not Given Patient Refuses human papillomavirus vaccine 11/12/2016 Recorded hepatitis A adult vaccine 11/12/2016 Recorded tetanus-diphtheria toxoids 12/16/2015 Recorded meningococcal conjugate vaccine 12/16/2015 Recorded human papillomavirus vaccine 12/16/2015 Recorded hepatitis A adult vaccine 12/16/2015 Recorded poliovirus vaccine, inactivated 12/31/2006 Recorded diphtheria/pertussis, acel/tetanus adult 12/31/2006 Recorded measles/mumps/rubella virus vaccine 12/31/2006 Recorded diphtheria/pertussis, acel/tetanus ped 12/31/2006 Recorded pneumococcal 13-valent vaccine 01/17/2004 Recorded influenza virus vaccine, inactivated 01/17/2004 Recorded haemophilus b conjugate (HbOC) vaccine 08/18/2003 Recorded DTaP, unspecified formulation 08/18/2003 Recorded hepatitis B adult vaccine 04/27/2003 Recorded poliovirus vaccine, inactivated 04/27/2003 Recorded haemophilus b conjugate (HbOC) vaccine 04/27/2003 Recorded diphtheria/pertussis, acel/tetanus adult 04/27/2003 Recorded pneumococcal 13-valent vaccine 04/27/2003 Recorded influenza virus vaccine, inactivated 04/27/2003 Recorded DTaP, unspecified formulation 04/27/2003 Recorded hepatitis B adult vaccine 01/29/2003 Recorded poliovirus vaccine, inactivated 01/29/2003 Recorded haemophilus b conjugate (HbOC) vaccine 01/29/2003 Recorded diphtheria/pertussis, acel/tetanus adult 01/29/2003 Recorded varicella virus vaccine 01/29/2003 Recorded measles/mumps/rubella virus vaccine 01/29/2003 Recorded DTaP, unspecified formulation 01/29/2003 Recorded hepatitis B adult vaccine 2002 Recorded poliovirus vaccine, inactivated 2002 Recorded pneumococcal 13-valent vaccine 2002 Recorded haemophilus b conjugate (HbOC) vaccine 2002 Recorded diphtheria/pertussis, acel/tetanus adult 2002 Recorded DTaP, unspecified formulation 2002 Recorded hepatitis B adult vaccine 2002 Recorded Lab Results Ambulatory Point of Care Results Rapid Strep POC Result: Negative (07/22/24 14:32:00) Influenza A POC: Negative (07/22/24 14:32:00) Influenza B POC: Negative (07/22/24 14:32:00) Rapid Covid POC: Negative (07/22/24 14:32:00) Result Comment: Electronical ly Signed By: Alfonso GAY, Lino Frias\.tanisha\Date and Time Signed: 07/22/24 14:54 EDT US OB 14+ WEEKS ANATOMY SCAN Observed: 0 06/29/2024 2:25 PM Status: F Source: [facility] EPIC Order Comment: US OB ANATOMY SINGLE W US OB CERVICAL LENGTH Estimated Date of Delivery: 10/14/24 Gestational Age as of 05/20/2024: 19w0d EXAM: US OB 14+ WEEKS ANATOM Y SCAN HISTORY: anatomy. TECHNIQUE: Two-dimensional transabdominal grayscale ultrasound imaging of the pelvis was performed. Exam limited by patient body habitus. FINDINGS: Gestation: Single Presentation: Cephalic Cardiac Activity: 154 beats per minute Placental Location: Posterior with no sonographic abnormalities identified. Distance from Placental Tip to Cervix: 8.7 cm Cervical Length: 4.4 cm Amniotic Fluid: Appears adequate MEASUREMENTS: BPD: 6.4 cm EGA: 25 weeks 6 days HC: 23.5 cm EGA: 25 weeks 4 days AC: 20.0 cm EGA: 24 weeks 4 days FL: 4.5 cm EGA: 24 weeks 5 days HC/AC Ratio: 1.17 The gestational age by today's ultrasound is 24 weeks 5 days (+/- 7 days gestation). Estimated Weight: 737 grams, +/- 111 grams ( 1 lb 10 oz). Weight Percentile for gestational age: 44 % ANATOMY C-Spine: Unremarkable T-Spine: Unremarkable L-Spine: Unremarkable Sacrum: Unremarkable Four Chamber Heart: Limited LVOT: Limited RVOT: Limited Stomach: Unremarkable Kidneys: Unremarkable Bladder: Unremarkable Diaphragm: Unremarkable Cord insertion: Unremarkable Cord vessels: Three Lateral Ventricles: Unremarkable Cerebellum: Unremarkable Cisterna Magna: Unremarkable Posterior Fossa: Unremarkable Right Femur: Unremarkable Left Femur: Unremarkable Right Tib/Fib: Unremarkable Left Tib/Fib: Unremarkable Right Rad/Ulnar: Unremarkable Left Rad/Ulnar: Unremarkable Right Humerus: Unremarkable Left Humerus: Unremarkable Nose/Lips: Unremarkable Profile: Unremarkable Orbits: Unremarkable IMPRESSION: 1. Single, live intrauterine gestation 24 weeks, 5 days by LMP. Today's ultrasound measurements correlate with a gestational age of 24 weeks 5 days. Estimated weight is 737 grams, +/- 111 grams ( 1 lb 10 oz) which correlates to 44 %. SAI is 10/14/2024. 2. Limited visualization of the four-chamber heart and outflow tracts. A short- term follow-up ultrasound is recommended. Electronically Signed:Electronically signed by JOEY WILLINGHAM II, MD, PHD at 30-Jun-2024 09:25:03 AM [facility] ALLERGIES DATE TYPE / CODE NAME / CODE REACTION SEVERITY SOURCE Drug Class/[id number](S NOMED CT) NO KNOWN ALLERGIES [facility] /[id number](SN ED CT) No Known Allergies [facility] /[id number](SN ED CT) No Known Medication Allergies [facility] ENCOUNTERS ADMIT/DISCHARGE ACCOUNT NUMBER ADMITTING ENCOUNTER CLASS LOCATION SOURCE 09/15/2024/09/16/19 [id number] Ambulatory Building:NO MS BCP OB [facility] EPIC 09/10/2024/09/11/19 [id number] Ambulatory Building:PT H_[facility] 09/10/2024/09/11/19 [id number] Ambulatory Buildin [address] [facility] 09/09/2024/09/10/19 [id number] Ambulatory Building:NO MS BCP OB [facility] EPIC 09/04/2024/09/05/19 [id number] Ambulatory Buildin 94 [facility] 09/04/2024/09/05/19 25 [id number] Ambulatory Buildin 410 [facility] 08/26/2024/08/27/19 25 [id number] Ambulatory Building:NO MS BCP OB [facility] EPIC 07/30/2024/07/31/19 25 [id number] Ambulatory Buildin 94 [facility] 07/30/2024/07/31/19 25 [id number] Ambulatory Buildin 410 [facility] 07/22/2024/07/24/19 [id number] Lino Hamilton Ambulatory FTMCBuildin g:FT LAB [facility] 07/22/2024/07/23/19 25 [id number] [place] Exam 1 [facility] 07/09/2024/07/10/19 25 [id number] Ambulatory Building:NO MS BCP OB [facility] EPIC 06/29/2024/06/30/19 25 [id number] Ambulatory Building:NO MS BCP OB [facility] EPIC 05/20/2024/05/20/19 25 [id number] Ambulatory Building:NO MS BCP OB [facility] EPIC 04/23/2024/04/23/20 [id number] Ambulatory Building:NO MS BCP OB [facility] EPIC 03/12/2024/03/12/20 24 [id number] Ambulatory Building:NO MS NB OB [facility] EPIC PAYERS ENCOUNTER GUARANTOR PAYER SUBSCRIBER SOURCE 09/15/2024 ENRICO BARNEYOB: [address], [place] [address]Eqi: (HP) Primary Insurance:[employer] [employer] MEDICAIDPolicy Number: [id number] Date:2024-06-27 ENRICO BARNEYOB: [id number] [address] [address] [facility] EPIC 09/10/2024 ENRICO VERDUZCOEDOB: [address], [place] [address]Blm: (HP) Primary Insurance:[place] MEDICAIDPolicy Number: [id number] Date:2024-06-27 ENRICO BARNEYOB: [id number] [address] [facility] 09/10/2024 ENRICO VERDUZCOEDOB: [address], [place] [address]Xlh: (HP) Primary Insurance:[place] MEDICAIDPolicy Number: [id number] Date:2024-06-27 ENRICO VERDUZCOEDOB: [id number] [address] [facility] 09/09/2024 ENRICO BARNEYOB: [address], [place] [address]Xqg: (HP) Primary Insurance:[facility] MEDICAIDPolicy Number: [id number] Date:2024-06-27 ENRICO BARNEYOB: [id number] [address], [place] [address] [facility] 09/04/2024 ENRICO BROWNINGECCA LUBAEDOB: [address], [place] [address]Afv: (HP) Primary Insurance:[place] MEDICAIDPolicy Number: [id number] Date:2024-06-27 ENRICO SALOMONCA LUBAEDOB: [id number] [address] [facility] 09/04/2024 ENRICO SALOMONCA LUBAEDOB: [address] [address]Xoy: (HP) Primary Insurance:[place] MEDICAIDPolicy Number: [id number] Date:2024-06-27 ENRICO SALOMONCA LUBAEDOB: [id number] [address] [facility] 08/26/2024 ENRICO VERDUZCOEDOB: [address] [address]Rnv: (HP) Primary Insurance:[facility] MEDICAIDPolicy Number: [id number] Date:2024-06-27 ENRICO VERDUZCOEDOB: [id number] [address] [address] [facility] 07/30/2024 ENRICO VERDUZCOEDOB: [address] [address]Jiv: (HP) Primary Insurance:[facility] MEDICAIDPolicy Number: [id number] Date:2024-06-27 ENRICO VERDUZCOEDOB: [id number] [address] [address]Qrb: (HP) [facility] 07/30/2024 ENRICO BARNEYOB: [address], [place] [address]Sqv: (HP) Primary Insurance:[facility] MEDICAIDPolicy Number: [id number] Date:2024-06-27 ENRICOJUAN J BARNEYOB: [id number] [address] [place] [address]Sab: (HP) [facility] 07/22/2024 ENRICO BARNEYOB: [address]Tel: ~ ~( 93 (HP) Primary Insurance:[facility] Number: [id number] Date:1344-20-55WL [address] [place] [address]EQ: ENIRCO CUMMINS [facility] 07/22/2024 Secondary Insurance:AnthemPolicy Number: [id number] Date:[id number] [id number] [place] [id number]: ENRICO CUMMINS [facility] 07/22/2024 Tertiary Insurance:[place] Number: [id number] Date:4140-47-64IJ [address] [place] [address]XQ: ENRICO CUMMINS [facility] 07/22/2024 ENRICO BARNEYOB: [address]Tel: ~ ~( 41 (HP) Primary Insurance:[facility] Number: [id number] Date:2749-24-33RW [address] [place], [place] [address] [address]MW: ENRICO CUMMINS [facility] 07/09/2024 ENRICO BARNEYOB: [address] [address]Kiq: (HP) Primary Insurance:[facility] MEDICAIDPolicy Number: [id number] Date:2024-06-27 ENRICO VERDUZCOEDOB: [id number] [address] [facility] 06/29/2024 ENRICO VERDUZCOEDOB: [address] [address]Jgn: (HP) Primary Insurance:[facility] MEDICAIDPolicy Number: [id number] Date:2024-06-27 ENRICO VERDUZCOEDOB: [id number] [address] [facility] 05/20/2024 ENRICO BARNEYOB: [address] [address]Gjq: (HP) [place]ID [place] Number: [id number] Date:2024-03-29 ENRICO BARNEYOB: [id number] [address] [address] [facility] 04/23/2024 ENRICO BARNEYOB: [place] [address]Kai: (HP) [place] Insurance[place]ID [place] Number: [id number] Date:2024-03-29 ENRICO BARNEYOB: [id number] [place] [address] [facility]
[2024-09-18 12:16] VITALS: BP 112/53; PULSE 96
== END 2024-09-18 14:00 | disposition home or self-care (01) ==
LOC: FBCO 12:06 → FBC 12:08
PROVIDERS: Visit Provider Nurse Practitioner Family
DX: O26.893 Other specified pregnancy related conditions, third trimester (principal)
CPT/HCPCS: 59025

== ENCOUNTER 2024-09-22 12:53 | Outpatient (OUT) | payer OTHER, SELFPAY ==
--- NOTE | 2024-09-22 12:58 | US_ITS ---
[place] [id number] Patient Name: ENRICO CASTLILO MRN: [id number] date: 2000 Sex: F Assigned Patient Location: [facility] Current Patient Location: [facility] Accession/Order Number: [id number] Exam Date: 09/22/2024 13:53 Report Date: 09/22/2024 13:55 At the request of: [employer] Procedure: US OB BPP w non-stress Ultrasound biophysical profile HISTORY: supraventricular tachycardia There is adequate breathing movement, gross body movement, tone and amniotic fluid volume for total score of 8 out of 8. The amniotic fluid index is 13.9 cm within normal limits. The heart rate varies from 108 269. Moderate right hydronephrosis present. US/US OB BPP w non-stress IMPRESSION: Adequate biophysical profile. Variable heart rate. Moderate right hydronephrosis. Impression dictated by: Michi Hayden M.D. 09/22/2024 1:55 PM Dictation [facility] Electronically authenticated by: [id number] Y Date: 09/22/2024 13:55
[2024-09-22 13:30] VITALS: BP 125/62; PULSE 76
== END 2024-09-22 14:20 | disposition home or self-care (01) ==
LOC: US 12:54 → FBC 12:55
PROVIDERS: Visit Provider Nurse Practitioner Family
DX: O36.8331 Maternal care for abnormalities of the fetal heart rate or rhythm, third trimester, fetus 1 (principal); Z3A.36 36 weeks gestation of pregnancy
CPT/HCPCS: 76818

== ENCOUNTER 2024-09-23 05:53 | Inpatient (IN) | payer OTHER, SELFPAY ==
--- OUTSIDE RECORDS SUMMARY | 2021-03-01 10:22 | XMS_ITS | Continuity of Care Document ---
Author Organization [facility] Address [address] [place] [address] Phone Care Team Providers Care Wood Stainer Name Role Phone Andrew Moran Unavailable Unavailable Procedures Procedure Date TB INTRADERMAL TEST TB INTRADERMAL TEST Advance Directives Directive Yes / No Effective Date File Name No Information Encounters Encounter Description Practice Location Reason(s) For Visit Diagnoses Date Provider Providers Copied on Encounter [facility], [address] [place] [address], [id number], tel:[phone] [facility] No Information Betsy Booker. [address] [place] [address], [id number], [place]. tel:[phone] [facility], [address] [place] [address], [id number], tel:[phone] [facility] Encounter for screening for respiratory tuberculosis Betsy Booker. [address] [place] [address], [id number], [place]. tel:[phone] [facility], [address] [place] [address], [id number], [place] tel:[phone] [facility] Encounter for screening for respiratory tuberculosis Betsy Booker. [address] [place] [address], [id number], [place]. tel:[phone] Family History Family Member Type Diagnosis Age At Onset No Information Payers Payer name Insurance type Covered republican ID Authoriza tion(s) Self Pay Cap 09 Social History Type Description Quantity Date Captured Comments Alcohol Use Details Unknown Nov-03-2021 Caffeine Use Details Unknown Tobacco Use Status No Information Smoking Status No Information Sex Female Sexual Orientation Don't Know Gender Identity Female Chief Complaint And Reason For Visit No Information Reason For Referral Reason For Referral No Information History Of Present Illness Encounter Date Complaint History Of Prese nt Illness No Information Functional Status Date Functional Assessmen t No Information Instructions Date Instruction Additional Infor mation No Information Assessments Type Assessment Date No Information Patient Care Teams Name Effective Dates (start - stop) Status Members No Information
--- OUTSIDE RECORDS SUMMARY | 2024-09-09 13:00 | XMS_ITS | Encounter Summary ---
Author Organization [facility] Address [address] [place] [address] Care Team Providers Care Concrete Laborer Name Role Phone Unavailable Primary Care Provider Unavailabl e Reason for Visit * Reason Comments Routine Visit Encounter Details Date Type Department Care Team (Latest Contact Info) Description 09/09/2024 1:00 PM EDT Routine [facility] [address] [place] [address] Negrita Peraza, SOUND TECHNICIAN SUPERVISOR [address] [place] [address] Third trimester ; 35 weeks gestation of ; with normal glucose tolerance test (GTT); supraventricular tachycardia Social History Tobacco Use Types Packs/Day Years Used Date Smoking Tobacco: Never Smokeless Tobacco: Never Alcohol Use Standard Drinks/Week Comments Not Currently 0 (1 standard drink = 0.6 oz pur e alcohol) Humiliation, Afraid, Rape, and Kick questionnair e Answer Date Recorded Within the last year, have y ou been afraid of your partner or ex-partner? No 03/12/2024 Within the last year, have y ou been humiliated or emotionally abused in other ways by your partner or ex-partner? No Within the last year, have y ou been kicked, hit, slapped, or otherwise physically hurt by your partner or ex-partner? No 03/12/2024 Within the last year, have y ou been raped or forced to have any kind of sexual activity by your partner or ex-partner? No 03/12/2024 Social Connection and Isolat ion Panel [NHANES] Answer Date Recorded In a typical week, how many times do you talk on the phone with family, friends, or neighbors? More than three times a week 03/12/2024 How often do you get togethe r with friends or relatives? More than three times a week 03/12/2024 How often do you attend chur or restorationist services? More than 4 times per year 03/12/2024 Do you belong to any clubs o r organizations such as faith groups, unions, fraternal or athletic groups, or school groups? No 03/12/2024 How often do you attend meet ings of the clubs or organizations you belong to? Never 03/12/2024 Are you , , di vorced, , never , or living with a partner? Living with partner 03/12/2024 AUDIT-C Answer Date Recorded Q1: How often do you have a drink containing alc ohol? Monthly or less 03/12/2024 Q2: How many drinks containi ng alcohol do you have on a typical day when you are drinking? 1 or 2 03/12/2024 Q3: How often do you have si x or more drinks on one occasion? Never 03/12/2024 Overall Financial Resource Strain (CARDIA) Answe r Date Recorded How hard is it for you to pa y for the very basics like food, housing, medical care, and heating? Not hard at all 03/12/2024 PHQ-2 Answer Date Recorded Patient Health Questionnaire-2 Score 0 03/12/2024 [facility] - Occupational Stress Questionnaire Answer Date Recorded Do you feel stress - tense, restless, nervous, or anxious, or unable to sleep at night because your mind is troubled all the time - these days? Only a little 03/12/2024 Exercise Vital Sign Answer Date Recorde d On average, how many days pe r week do you engage in moderate to strenuous exercise (like a brisk walk)? 4 days 03/12/2024 On average, how many minutes do you engage in exercise at this level? 60 min 03/12/2024 Hunger Vital Sign Answer Date Recorded Within the past 12 months, y ou worried that your food would run out before you got the money to buy more. Never true 03/12/20 24 Within the past 12 months, t he food you bought just didn't last and you didn't have money to get more. Never true 03/12/2024 PRAPARE - Transportation Answer Date Re corded In the past 12 months, has l ack of transportation kept you from medical appointments or from getting medications? No 02/27 In the past 12 months, has l ack of transportation kept you from meetings, work, or from getting things needed for daily living? No 03/12/2024 Housing Stability Vital Sign Answer Deshaun e Recorded In the last 12 months, was t here a time when you were not able to pay the mortgage or rent on time? No 03/12/2024 In the past 12 months, how m any times have you moved where you were living? 0 03/12/2024 At any time in the past 12 m onths, were you homeless or living in a skilled nursing (including now)? No 03/12/2024 Education Answer Date Recorded What is the highest level of school you have completed or the highest degree you have received? 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 female who presents for No chief complaint on file. Patient presents today for Return OB appointment. [...] nursing note reviewed. Exam conducted with a apartment maintenance supervisor present. Vitals: Estimated body mass index is 38.58 kg/m?? as calculated from the following: Height as of 08/22/18: 5' 6 . Weight as of 08/22/18: 239 lb. BP: Patient's last menstrual period was 01/08/2024. ASSESSMENT & PLAN Return OB: Patient presents today for a routine obstetrics appointment. Patient is currently 35w0d . Patient states she is doing well but has complaints of being tired due to current . Patient has verbalizes frequent movement. labor precautions was discussed/given and patient was instructed to perform kick counts three times a day. Orders Placed This Encounter Procedures US biophysical profile w non stress test Hemoglobin A1c Follow Up: Patient is to return to office in 1 week for routine OB appointment will obtain GBS cultures and sign LARC. Patient evaluated by MARILIN on 09/04/24 and has scheduled follow up appt tomorrow with MFM. Willcontinue with MFM growth ultrasounds every 4 weeks; continue with testing here. MFM notedintermttent PACs and recommend weekly hand held Doppler to rule out supraventricular tachycardia. We will begin BPP's and NST. Plan will be to deliver at 39 weeks. Documented by Negrita Peraza NP on behalf of: Negrita Peraza NP documented in this encounter Plan of Treatment Upcoming Encounters Date Type Department Care Team (Late st Contact Info) Description 11/02/2024 1:30 PM EDT Visit [facility] [address] [place] [address] Mimi Lanza PA [address] [place] [address] Scheduled Orders Name Type Priority Associated Diagnoses Orde r Schedule Hemoglobin A1c Lab Routine with normal glucose tolerance test (GTT) Ordered: 09/09/2024 US biophysical profile w non stress test Imaging Routine supraventricular tachycardia Expected: 09/09/2024 (Approximate), Expires: 03/12/2025 documented as of this encounter Visit Diagnoses Diagnosis Third trimester state, incidental 35 weeks gestation of with normal glucose tolerance test (GTT) supraventricular tachycardia documented in this encounter
--- OUTSIDE RECORDS SUMMARY | 2024-09-10 14:30 | XMS_ITS | Encounter Summary ---
Author Organization [employer] tem Address [id number] [address] [place] [address] Care Team Providers Care Supervisor Nutritional Yeast Name Role Phone Unavailable Primary Care Provider Unavailabl e Reason for Visit * Reason Comments New Patient * Consultation (Routine) - Pending Review Specialty Diagnoses / Procedures Referred By Jovani t Referred To Contact Pediatric Urology Diagnoses Abnormal ultrasonic finding on screening of mother, antepartum Elvis Granger MD [address] [address] Phone: tel: fax: Lori Mcclendon MD [address] [place] [address] Phone: tel: fax: Referral ID Status Reason Start Date Expiration Date Visits Requested Visits Authorized [id number] Pending Review Specialty Services Required 08/13/2024 08/13/2025 1 1 Encounter Details Date Type Department Care Team (Latest Contact Info) Description 09/10/2024 2:30 PM EDT Office Visit [facility] [address] [place] [phone] Lori Mcclendon MD [address] [place] [address] hydronephrosis during , antepartum, single or unspecified fetus (Primary Dx); Abnormal ultrasonic finding on screening of mother, antepartum Social History Tobacco Use Types Packs/Day Years Used Date Smoking Tobacco: Never Smokeless Tobacco: Never Tobacco Cessation:Counseling Given: Not Answered Alcohol Use Standard Drinks/Week Comments Never 0 (1 standard drink = 0.6 oz pur e alcohol) Hunger Screening Answer Date Recorded Within the past 12 months we worried whether our food would run out before we got money to buy more. Never True 07/30/2024 Within the past 12 months th e food we bought just didn't last and we didn't have money to get more. Never True 07/30/2024 Estimated Date of Delivery Comme nts Yes 10/14/2024 Based on last me nstrual period of 01/08/2024 Sex and Gender Information Value Date Recorded Sex Assigned at Not on file Legal Sex Female 11:28 AM EDT Gender Identity Not on file Sexual Orientation Not on file documented as of this encounter Last Filed Vital Signs Vital Sign Reading Time Taken Comments Blood Pressure 93/67 09/10/2024 2:23 PM EDT Pulse 112 09/10/2024 2:23 PM EDT Temperature 36.8 C (98.3 F) 09/10/2024 2:23 PM EDT Respiratory Rate - - Oxygen Saturation - - Inhaled Oxygen Concentration - - Weight 109.8 kg (242 lb) 09/10/2024 2:23 PM EDT Height 165.1 cm (5' 5 ) 09/10/2024 2:23 PM EDT Body Mass Index 40.27 09/10/2024 2:23 PM EDT documented in this encounter Patient Instructions * Patient Instructions* Lori Mcclendon MD - 09/10/2024 2:30 PM EDT The possible causes of hydronephrosis in an infant include bladder outlet obstruction, ureteropelvic junction obstruction and vesicoureteral reflux. I recommend getting a renal ultrasound after the infant is delivered. We will plan to do it around 2 weeks of a age when we see the baby in the office. A test called a VCUG will also need to be performed. This test will further evaluate for vesicoureteral reflux (VUR). This we will need to be performed at [facility]. I would also recommend that your child be sent home from the hospital on a low dose antibiotic to prevent infection (amoxicillin 10 mg/kg daily) until the work up on the kidneys has been completed. You will need to make sure however provide you with a prescription will give you refills Please call us after the baby has been delivered. documented in this encounter Progress Notes * Lori Mcclendon MD - 09/10/2024 2:30 PM EDT Referring Physician: Elvis Granger Md [address] [facility], [address] [place] [id number] [facility] April Cordova is a 24 y.o. female that was referred to the pediatric urology clinic for hydronephrosis discovered on ultrasounds. The condition was first noted to be present on ultrasound performed at 28 weeks gestation due to an [facility] referral for cardiac concerns (OB couldn't get good picture). Since that time she has been told that the heart is fine. The fetus is afemale fetus. The parents do wish to know the sex of the baby. Amniotic fluid levels have been normal. The patient has not experienced other complications during this . Reportedly the hydronephrosis has worsened on serial ultrasounds. NST next week due to fast HR When asked about family history of renal abnormalities, Ms. Bello states that her Maternal uncle only has 1 kidney. It was removed as an infant (looked like a bag of grapes) possible MCDK. No other significant family history. Pain Scale 0 ROS: Constitutional: no weight loss, fever, night sweats Eyes: negative Ears/Nose/Throat/Mouth: negative Respiratory: negative Cardiovascular: negative Gastrointestinal: negative Geniturinary: negative Gynecologic: +35w 1d gestation Skin: negative Musculoskeletal: negative Neurological: negative Behavioral/Psych: negative Endocrine: negative Hematologic/Lymphatic: negative Allergic/Immunologic: negative Allergies: No Known Allergies Medications: Current Outpatient Medications: no115/iron/folic acid ( 19 ORAL), Take 1 tablet by mouth in the morning., Disp: , Rfl: Past Medical History: History reviewed. No pertinent past medical history. Family History: History reviewed. No pertinent family history. Surgical History: History reviewed. No pertinent surgical history. Social History: Lives with her mother. Has no other children. Vitals: BP 93/67 Pulse 112 Temp 36.8 ??C (98.3 ??F) Ht 165.1 cm (5' 5 ) Wt 109.8 kg (242 lb) LMP 01/08/2024 BMI 40.27 kg/m?? Physical Exam: General-no acute distress. Healthy in appearance. Respiratory-normal effort of breathing Abdomen-gravid Neuro-normal gait and balance Imaging Images were independently reviewed by me with my interpretation as follows: 09/04/24 US: Right kidney with grade 3-4 hydronephrosis. Right AP diameter is 11 mm. Left kidney with grade 2-3 hydronephrosis. AP diameter is 8 mm. Bladder is within normal limits. IMPRESSION 1. hydronephrosis during , antepartum, single or unspecified fetus 2. Abnormal ultrasonic finding on screening of mother, antepartum PLAN Today after the reviewing the ultrasounds I discussed with the parents the possible etiologies for hydronephrosis in a female which included bladder outlet obstruction, congenital megaureters, ureterovesical obstruction, ureteropelvic junction obstruction, vesicoureteral reflux, and transient hydronephrosis. In the patient's recent ultrasounds that I reviewed, bilateral hydronephrosis was present and the parenchyma of the right kidney appears to be possibly thinned, while the left parenchyma appears to be of normal thickness. Ms. Cordova is planning to deliver at [facility]. At this time I would recommend getting a renal ultrasound after delivery. If sig nificant hydronephrosis and/or hydroureter is present on the initial renal ultrasound, then the baby should be started on antibiotic prophylaxis (amoxicillin 10 mg/kg/day) and my office can facilitate an outpatient VCUG to be performed. Depending on the severity, the baby may also need a serum creatinine and further testing with a Lasix renogram once the child is of reasonable age. We also discussed the need for serial renal ultrasounds for further evaluation. The infant should be discharged home on amoxicillin prophylaxis until the work up for hydronephrosis has been completed. Lori Mcclendon MD Total time spent was 60 minutes: Preparing to see the patient (e.g., review of tests) Obtaining and/or reviewing separately obtained history Performing a medically appropriate examination and/or evaluation Counseling and educating the patient/family/caregiver Referring and communicating with other health vision care associate (not separately reported) Documenting clinical information in the electronic or other health record Independently interpreting results (not separately reported) and communicating results to the patient/family/caregiver * Frieda Sanders CMA - 09/10/2024 2:30 PM EDT Reason for visit: Hydronephrosis of right kidney Know sex of baby: yes- girl Pain Scale: 0 Due Date: 10/14/2024 Weeks Gestation: 35w 1d ROS: Constitutional: no weight loss, fever, night sweats Eyes: negative Ears/Nose/Throat/Mouth: negative Respiratory: negative Cardiovascular: negative Gastrointestinal: negative Geniturinary: see HPI Skin: negative Musculoskeletal: negative Neurological: negative Behavioral/Psych: negative Endocrine: negative Hematologic/Lymphatic: negative Allergic/Immunologic: negative Social History: Lives with her mom. Children: 0. Family Urologic history moms brother only has one kidney. No other family history Immunizations: stated as up to date, no records available documented in this encounter Plan of Treatment Upcoming Encounters Date Type Department Care Team (Late st Contact Info) Description 10/05/2024 3:15 PM EDT Appointment Maternal Medicine [place] [address] [place] [address] [address] [place] [address] documented as of this encounter Visit Diagnoses Diagnosis hydronephrosis during , antepartum, single or unspecified fetus- Primary Abnormal ultrasonic finding on screening of mother, antepartum documented in this encounter
--- OUTSIDE RECORDS SUMMARY | 2024-09-10 15:27 | XMS_ITS | Encounter Summary ---
Author Organization [facility] [employer] [place] tem Address [id number] [address] [place] [address] Care Team Providers Care Breakfast Supervisor Name Role Phone Unavailable Primary Care Provider Unavailabl e Reason for Referral * Diagnostic Imaging (Routine) - Pending Review Specialty Diagnoses / Procedures Referred By Vazquezac t Referred To Contact Maternal and Medicine Diagnoses Pyelectasis of fetus on ultrasound Encounter for repeat ultrasound for heart rate Procedures US MFM with or without consult Wilbur Tellez MD [address], [address] [place] [address] Phone: tel: fax: Maternal- Medicine at [facility] [address] [place] [address] Phone: tel: fax: Referral ID Status Reason Start Date Expiration Date V isits Requested Visits Authorized [id number] Pending Review 09/04/2024 09/04/2025 1 1 Reason for Visit * Diagnostic Imaging (Routine) - Pending Review Specialty Diagnoses / Procedures Referred By Contac t Referred To Contact Maternal and Medicine Diagnoses Pyelectasis of fetus on ultrasound Encounter for repeat ultrasound for heart rate Procedures US MFM with or without consult Wilbur Tellez MD [address], [address] [place] [address] Phone: tel: fax: Maternal- Medicine at [facility] [address] [place] [address] Phone: tel: fax: Referral ID Status Reason Start Date Expiration Date V isits Requested Visits Authorized [id number] Pending Review 09/04/2024 09/04/2025 1 1 Encounter Details Date Type Department Care Team (Latest Contact Info) Description 09/10/2024 3:27 PM EDT - 09/10/2024 11:59 PM EDT Hospital Encounter [facility] US Imaging [address] [place] [address] Pyelectasis of fetus on ultrasound; Encounter for repeat ultrasound for heart rate Discharge Disposition: Home Social History Tobacco Use Types Packs/Day Years Used Date Smoking Tobacco: Never Smokeless Tobacco: Never Alcohol Use Standard Drinks/Week Comments Never 0 [...] on file documented as of this encounter Medications at Time of Discharge no115/iron/folic acid ( 19 ORAL) Take 1 tablet by mouth in the morning. documented as of this encounter Plan of Treatment Upcoming Encounters Date Type Department Care Team (Late st Contact Info) Description 10/05/2024 3:15 PM EDT Appointment Maternal Medicine [facility] [address] [place] [address] documented as of this encounter Procedures Procedure Name Priority Date/Time Associated Diagnosis Comments US MFM AMNIOTIC FLUID VOLUME ASSESSMENT Routine 09/10/2024 4:35 PM EDT Pyelectasis of fetus on ultrasound Encounter for repeat ultrasound for heart rate documented in this encounter Results * US MFM AMNIOTIC FLUID VOLUME ASSESSMENT (09/10/2024 4:35 PM EDT) Anatomical Region Laterality Modality OB-MEDICAL OFFICE PROFESSIONAL INSTRUCTOR Ultrasound 09/10/2024 3:58 PM EDT Narrative 09/11/2024 11:45 AM EDT NAME: ANNA WESTON : 2000 SEX: F Accession Number: [id number] ORDERING PHYSICIAN: WILBUR TELLEZ REFERRING PHYSICIAN: NANCI TATUM Coding ----- --------- Procedures 27300: Limited OB / GILMA, 1 or More Fetuses Indication ----- --------- Screening for follow-up survey, Obesity in , Supervision of high risk (Right kidney hydronephrosis and left kidney pyelectasis, intermittent PACs), Polyhydramnios History ----- --------- OB History 1 Current ----- --------- Cell free DNA Low Risk analysis Maternal Assessment ----- --------- Physical Exam Height 165 cm, 5 ft 5 in. Initial weight 107 kg, 235 lb. Initial BMI 39.11 kg/m Method ----- --------- Transabdominal ultrasound examination ----- --------- Christianson . Number of fetuses: 1 Dating ----- --------- LMP on: 01/08/2024 GA by LMP 35 w + 1 d SAI by LMP: 10/14/2024 Previous Ultrasound on: 04/15/2024 Type of prior assessment: GA GA at prior assessment date 14 w + 3 d GA by previous U/S 35 w + 4 d SAI by previous Ultrasound: 10/11/2024 Assigned: based on the LMP, selected on 07/30/2024 Assigned GA 35 w + 1 d Assigned SAI: 10/14/2024 General Evaluation ----- --------- Cardiac activity Present. FHR 132 bpm. Presentation: cephalic Placenta: Placental site: posterior, away from cervical os Amniotic fluid: Amount of AF: normal amount. MVP 3.7 cm Maternal Structures ----- --------- Uterus Visualized Cervix Suboptimal Approach - Transabdominal Right Ovary Not examined Left Ovary Not examined Cul de Sac Suboptimal Impression ----- --------- Single viable intrauterine consistent with 35w 1d with an SAI of 10/14/2024. Amniotic fluid MVP measures 3.7 cm. Hydronephrosis of the right kidney is again visualized. Pyelectasis of the left kidney is again visualized. Intermittent PAC's are identified on today's exam. Suspected dilated bowel appears within normal limits on today's exam. Recommendations ----- --------- Please see [facility] recommendations from prior clinical and/or ultrasound report documentation. Patient is scheduled 09/04/24 for a follow up growth. Subsequent follow up or other follow up as clinically determined by primary OB provider unless otherwise specified by [facility]. Results forwarded to ordering provider so they can follow up with the patient as necessary. Procedure Note Elvis Granger MD - 09/11/2024 NAME: ANNA WESTON : 2000 SEX: F Accession Number: [id number] ORDERING PHYSICIAN: WILBUR TELLEZ REFERRING PHYSICIAN: NANCI TATUM Coding ----- --------- Procedures 70718: Limited OB / GILMA, 1 or More Fetuses Indication ----- --------- Screening for follow-up survey, Obesity in , Supervision of highrisk (Right kidney hydronephrosis and left kidney pyelectasis, intermittent PACs), Polyhydramnios History ----- --------- OB History 1 Current ----- --------- Cell free DNA Low Risk analysis Maternal Assessment ----- --------- Physical Exam Height 165 cm, 5 ft 5 in. Initial weight 107 kg, 235 lb.Initial BMI 39.11 kg/m Method ----- --------- Transabdominal ultrasound examination ----- --------- Christianson . Number of fetuses: 1 Dating ----- --------- LMP on: 01/08/2024 GA by LMP 35 w + 1 d SAI by LMP: 10/14/2024 Previous Ultrasound on: 04/15/2024 Type of prior assessment: GA GA at prior assessment date 14 w + 3 d GA by previous U/S 35 w + 4 d SAI by previous Ultrasound: 10/11/2024 Assigned: based on the LMP, selected on 07/30/2024 Assigned GA 35 w + 1 d Assigned SAI: 10/14/2024 General Evaluation ----- --------- Cardiac activity Present. FHR 132 bpm. Presentation: cephalic Placenta: Placental site: posterior, away from cervical os Amniotic fluid: Amount of AF: normal amount. MVP 3.7 cm Maternal Structures ----- --------- Uterus Visualized Cervix Suboptimal Approach - Transabdominal Right Ovary Not examined Left Ovary Not examined Cul de Sac Suboptimal Impression ----- --------- Single viable intrauterine consistent with 35w 1d with an SAI of10/14/2024. Amniotic fluid MVP measures 3.7 cm. Hydronephrosis of the right kidney is again visualized. Pyelectasis of the left kidney is again visualized. Intermittent PAC's are identified on today's exam. Suspected dilated bowel appears within normal limits on today's exam. Recommendations ----- --------- Please see M recommendations from prior clinical and/or ultrasoundreport documentation. Patient is scheduled 09/04/24 for a follow up growth. Subsequent follow up or other follow up as clinically determined byprimary OB provider unless otherwise specified by MFM. Results forwarded to ordering provider so they can follow up with thepatient as necessary. us Wilbur Tellez MD [facility] US ORDERABLES Final Resul t documented in this encounter Visit Diagnoses Diagnosis Pyelectasis of fetus on ultrasound Encounter for repeat ultrasound for heart rate documented in this encounter
--- OUTSIDE RECORDS SUMMARY | 2024-09-15 10:20 | XMS_ITS | Encounter Summary ---
Author Organization [facility] Address [address] [place] [address] Care Team Providers Care Closer On Name Role Phone Unavailable Primary Care Provider Unavailabl e Reason for Visit * Reason Comments Routine Visit Encounter Details Date Type Department Care Team (Late st Contact Info) Description 09/15/2024 10:20 AM EDT Routine [facility] [address] [place] [address] Mimi Lanza PA [address] [place], [id number] 35 weeks gestation of ; Third trimester Social History Tobacco Use Types Packs/Day Years [...] How often do you attend chur or congregation services? More than 4 times per year 03/12/2024 Do you belong to any clubs o r organizations such as restoration groups, unions, fraternal or athletic groups, or [...] Recorded Patient Health Questionnaire-2 Score 0 03/12/2024 [facility] Occupational Stress Questionnaire Answer Date Recorded [...] were you homeless or living in a intermediate (including now)? 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 She is normal weight. HENT: Head: Normocephalic. Cardiovascular: Rate and Rhythm: Normal rate. Pulses: Normal pulses. Pulmonary: Effort: Pulmonary effort is normal. Breath sounds: Normal breath sounds. Abdominal: Palpations: Abdomen is soft. Musculoskeletal: General: Normal range of motion. Neurological: General: No focal deficit present. Mental Status: She is alert and oriented to person, place, and time. Psychiatric: Mood and Affect: Mood normal. Behavior: Behavior normal. Thought Content: Thought content normal. Judgment: Judgment normal. Vitals and nursing note reviewed. Vitals: Estimated body mass index is 38.58 kg/m?? as calculated from the following: Height as of 08/22/18: 5' 6 . Weight as of 08/22/18: 239 lb. BP: 122/70 Patient's last menstrual period was 01/08/2024. ASSESSMENT & PLAN ICD-10-CM 1. 35 weeks gestation of Z3A.35 POCT urinalysis dipstick manually resulted 2. Third trimester Z34.93 POCT urinalysis dipstick manually resulted CULTURE, GROUP B STREP WITH SUSCEPTIBLITY CULTURE, GROUP B STREP WITH SUSCEPTIBLITY Patient is doing well but has complaints of being tired and having maternal discomfort due to . Patient verbalized frequent movement and was instructed to perform kick counts three times per day. labor precautions were given, LARC consent was signed/declined, and GBS was obtained. Cervical check was performed and patient is 0cm dilated. Orders Placed This Encounter Procedures CULTURE, GROUP B STREP WITH SUSCEPTIBLITY POCT urinalysis dipstick manually resulted Patient to start nst and BPP for sv tachycardia. Patient was sent over to start today Follow Up: Patient is to return to office in 1 week for routine OB appointment Documented by CABREAR Pérez on behalf of: CABRERA Pérez documented in this encounter Plan of Treatment Upcoming Encounters Date Type Department Care Team (Late st Contact Info) Description 11/02/2024 1:30 PM EDT Visit [facility] [address] [place] [phone] Mimi Lanza PA [address] [place], [place] [id number] Scheduled Orders Name Type Priority Associated Diagnoses Orde r Schedule CULTURE, GROUP B STREP WITH SUSCEPTIBLITY Lab Routine Third trimester Expected: 09/15/2024, Expires: 09/15/2025 documented as of this encounter Procedures Procedure Name Priority Date/Time Associated Diagnosis Comments POCT URINALYSIS DIPSTICK Routine 09/15/2024 11:20 AM EDT 35 weeks gestation of Third trimester documented in this encounter Results * POCT urinalysis dipstick manually resulted (09/15/2024 11:20 AM EDT) Color, UA Yellow Clarity, UA Clear Glucose, UA Negative Negative - 2000(110) ++++ mg/dL Bilirubin, UA Negative Negative - 4(70) +++ mg/dL Ketones, UA Negative Negative - 160(16) ++++ mg/dL Spec Grav, UA 1.015 1 - 1.03 Blood, UA Negative Negative - 50 Titus/mcL pH, UA 7.0 5 - 9 Protein, UA Negative Negative - 2000(20) ++++ mg/dL Urobilinogen, UA 0.2 0.2 - 12 mg/dL Leukocytes, UA Negative Negative - 500+++ Tristan/mcL Nitrite, UA Negative Negative - Positive Urine 09/15/2024 11:2 0 AM EDT Mimi REES POINT OF CARE TEST ENTER/EDIT OR DERABLES Final Result documented in this encounter Visit Diagnoses Diagnosis 35 weeks gestation of Third trimester state, incidental documented in this encounter
--- OUTSIDE RECORDS SUMMARY | 2024-09-22 10:30 | XMS_ITS | Encounter Summary ---
Author Organization [facility] Address [address] [place] [address] Care Team Providers Care Director Radio Name Role Phone Unavailable Primary Care Provider Unavailabl e Reason for Visit * Reason Comments Routine Visit Encounter Details Date Type Department Care Team (Late st Contact Info) Description 09/22/2024 10:30 AM EDT Routine [facility] [address] [place] [address] Yony Soto, DO [address] [facility] [address] Hipolito Ramires, [facility]11 Third trimester ; 36 weeks gestation of ; care, first in third trimester Social History Tobacco Use Types Packs/Day [...] How often do you attend chur or holiness services? More than 4 times per year 03/12/2024 Do you belong to any clubs o r organizations such as restorationism groups, unions, fraternal or athletic groups, or [...] Recorded Patient Health Questionnaire-2 Score 0 [facility] Questionnaire Answer Date [...] any time in the past [address] [facility], were you homeless or living in a [facility] (including now)? 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 female who presents for Routine Visit Patient presents today for Return OB appointment. MEDICATIONS Current Outpatient Medications Medication Instructions GENERIC EXTERNAL MEDICATION 1 tablet, Daily MV-Min-Fe Fum-FA-DHA ( 1 PO) 1 tablet, Daily ALLERGIES No Known Allergies PROBLEMS Active Ambulatory Problems Diagnosis Date Noted Third trimester 09/22/2024 36 weeks gestation of 09/22/2024 Resolved Ambulatory Problems Diagnosis Date Noted No [...] appearance. She is well-developed. Genitourinary: Vulva normal. Cardiovascular: Rate and Rhythm: Normal rate and [...] nursing note reviewed. Exam conducted with a lumber material handler present. Vitals: Estimated body mass index is 38.58 kg/m?? as calculated from the following: Height as of 08/22/18: 5' 6 . Weight as of 08/22/18: 239 lb. BP: 108/76 Patient's last menstrual period was 01/08/2024. ASSESSMENT & PLAN ICD-10-CM 1. Third trimester Z34.93 POCT urinalysis dipstick manually resulted 2. 36 weeks gestation of Z3A.36 POCT urinalysis dipstick manually resulted 3. care, first in third trimester Z34.03 Return OB: Patient presents today for a routine obstetrics appointment. Patient is currently 36w6d . Patient states she is doing well but has complaints of being tired due to current . Patient has verbalizes frequent movement. labor precautions was discussed/given and patient was instructed to perform kick counts three times a day. Pt to deliver 09/28/24- d/t arrhythmia and hydronephrosis. Signed induction consents. Orders Placed This Encounter Procedures POCT urinalysis dipstick manually resulted Follow Up: Patient is to return to office in 1 week for routine OB appointment. Documented by Kaya Hernandez LPN on behalf of: Yony Soto DO documented in this encounter Plan of Treatment Upcoming Encounters Date Type Department Care Team (Late st Contact Info) Description 11/02/2024 1:30 PM EDT Visit [facility] [address] [facility] [place] [id number] Mimi Lanza PA [address] [facility] [place] [address] documented as of this encounter Procedures Procedure Name Priority Date/Time Associated Diagnosis Comments POCT URINALYSIS DIPSTICK Routine 09/22/2024 11:02 AM EDT Third trimester 36 weeks gestation of documented in this encounter Results * POCT urinalysis dipstick manually resulted (09/22/2024 11:02 AM EDT) Color, UA Yellow Clarity, UA Clear Glucose, UA Negative Negative - 2000(110) ++++ mg/dL Bilirubin, UA Negative Negative - 4(70) +++ mg/dL Ketones, UA Negative Negative - 160(16) ++++ mg/dL Spec Grav, UA 1.025 1 - 1.03 Blood, UA Negative Negative - 50 Titus/mcL pH, UA 6.0 5 - 9 Protein, UA Negative Negative - 1999(20) ++++ mg/dL Urobilinogen, UA 0.2 0.2 - 12 mg/dL Leukocytes, UA Negative Negative - 500+++ Tristan/mcL Nitrite, UA Negative Negative - Positive Urine 09/22/2024 11:0 2 AM EDT Yony Soto DO POINT OF CARE TEST ENTER/EDIT OR DERABLES Final Result documented in this encounter Visit Diagnoses Diagnosis Third trimester state, incidental 36 weeks gestation of care, first in third trimester documented in this encounter
[2024-09-23] VITALS (36 sets, daily range): BP systolic 75–135; BP diastolic 54–86; PULSE 63–103; TEMP 36–36.2; O2SAT 99–100
--- OUTSIDE RECORDS SUMMARY | 2024-09-23 06:12 | XMS_ITS | CCD ---
Author Organization [facility] Inform ion Partnership [facility] Care Team Providers Care Composing Room Machinist Apprentice Name Role Phone Maria Elena Lara Attending Unavailable Jacob, Maria Elena Primary Care Unavailable Jacob Maria Elena Attending Unavailable Jacob Maria Elena Primary Care Unavailable Kathy Kraus Primary Care Physician Unavailable Primary Care Provider UnavailLino Soler Attending Unavailable Lino Hamilton Attending Unavailable Lino Hamilton Admitting Unavailable KATHY KRAUS Primary Care Physician [phone] Unavailable Primary Care Provider Unavailjenny e BRITTANYSANTIY R Referring Unavailable BRITTANY, YONY R Referring Unavailable LORI RAO Attending Unavailable ELVIS MARIA Referring Unavailable ELVIS MARIA Attending Unavailable BRITTANY, YONY R Referring Unavailable JORGE TELLEZ Attending Unavailable BRITTANY, YONY R Referring Unavailable BRITTANY, YONY R Referring Unavailable MIMI LANZA Attending Unavailable MIMI LANZA Referring Unavailable MIMI LANZA Attending Unavailable YONY SOTO Attending Unavailable DWAINE PERAZA Attending Unavailable POOL, MIMI Attending Unavailable SARAH MCKEON Attending Unavailable YONY SOTO Attending Unavailable Allergies Allergy Classification Reported Allergen(s) Allergy Type Date of Onset Reaction(s) Facility (2 sources) No Known Medication Allergies; Translations: [No Known Medication Allergies] Propensity to adverse reactions (disorder) [facility] Repository Medications Current Medications Medication [...] route twice daily fluticasone 0.05 mg/inh Nasal [place] 1 spray(s), Nasal, BID, 16 gram, Refill(s) 5, each nostril, [id number], 168, cm, 01/16/21 11:00:00 EDT, Height/Length Dosing, 109.7, kg, 01/16/21 11:00:00 EDT, Weight Dosing Start Date: 01/16/21 Status: Ordered fluticasone 0.05 mg/inh Nasal [place] (1 source) Start: 01-16-2021 take 1 spray(s) nasal route twice daily fluticasone 0.05 mg/inh Nasal [place] 1 spray(s), Nasal, BID, 16 gram, Refill(s) 5, each nostril, [facility]pharm[facility] #[id number], 168, cm, 01/16/21 11:00:00 EDT, [...] Quantity: 30.0 Unit: cap(s) Repeat number: 1 MV-Min-Fe Fum-FA-DHA ( 1 PO) (3 sources) Start: 07-22-2024 MV-Mi n-Fe Fum-FA-DHA ( 1 PO) Take 1 tablet by mouth Daily 07/22/2024 Active no115/iron/folic acid ( 19 ORAL) (5 sources) [...] nausea/vomiting, # 60 tab(s), Refills(s) 1, Pharmacy: [facility]pharm[facility] #[id number], 168, cm, 04/03/21 14:43:00 EST, [...] 09-09-2024 Episodic Other and delivery including normal (20 sources) Normal ; Translations: [Encounter for supervision of normal first , first trimester] Onset: 09-22-2024 03-12-2024 Episodic Other screening for suspected conditions [...] [35 weeks gestation of ] 09-09-2024 Episodic Residual codes; unclassified (5 sources) Gestation period, 36 weeks; Translations: [36 weeks gestation of ] Onset: 09-22-2024 09-22-2024 Episodic Substance-related disorders (4 sources) Smoker 12-07-2021 [...] Facility US OB BPP W NON-STRESS on 09-22-2024 [place] [address] Ultrasound Report Signed Patient: APRIL PEUNTE MR#: [id number] : 2000 Acct:[id number] Age/Sex: 24 / F ADM Date: 09/22/24 Loc: [place] [address]: Dwaine Peraza Ordering Physician: Dwaine Peraza Date of Service: 09/22/24 Procedure(s): US OB BPP w non-stress Accession Number(s): [id number] cc: Dwaine Peraza; Physician,Non-Staff M.D. The [place] [address] Patient Name: APRIL PUENTE MRN: [id number] date: 2000 Sex: F Assigned Patient Location: [facility] Current Patient Location: [facility] Accession/Order Number: [id number] Exam Date: 09/22/2024 13:53 Report Date: 09/22/2024 13:55 At the request of: DWAINE PERAZA Procedure: US OB BPP w non-stress Ultrasound biophysical profile HISTORY: supraventricular tachycardia There is adequate breathing movement, gross body movement, tone and amniotic fluid volume for total score of 8 out of 8. The amniotic fluid index is 13.9 cm within normal limits. The heart rate varies from 108 269. Moderate right hydronephrosis present. US/US OB BPP w non-stress IMPRESSION: Adequate biophysical profile. Variable heart rate. Moderate right hydronephrosis. Impression dictated by: Michi Hayden M.D. 09/22/2024 1:55 PM Dictation Location: [place] [address] Electronically authenticated by: [id number] Y Date: 09/22/2024 13:55 Dictated By: Michi Hayden D.O. Signed By: 09/22/24 1358 DD/ 54 TD/TT: Spinning Machine Operator: [facility] Radiology, Radiologist, MD - 09/22/2024 [place] [address] Ultrasound Report Signed Patient: APRIL PUENTE MR#: [id number] : 2000 Acct:[id number] Age/Sex: 24 / F ADM Date: 09/22/24 Loc: [place] [address]- Attending Dr: Dwaine Peraza Ordering Physician: Dwaine Peraza Date of Service: 09/22/24 Procedure(s): US OB BPP w non-stress Accession Number(s): [id number] cc: Dwaine Peraza; Physician,Non-Staff M.[place] The [place] [id number] Patient Name: APRIL PUENTE MRN: [facility]:[id number] date: 2000 Sex: F Assigned Patient Location: [facility] Current Patient Location: [facility] Accession/Order Number: [id number] Exam Date: 09/22/2024 13:53 Report Date: 09/22/2024 13:55 At the request of: DWAINE PERAZA Procedure: US OB BPP w non-stress Ultrasound biophysical profile HISTORY: supraventricular tachycardia There is adequate breathing movement, gross body movement, tone and amniotic fluid volume for total score of 8 out of 8. The amniotic fluid index is 13.9 cm within normal limits. The heart rate varies from 108 269. Moderate right hydronephrosis present. US/US OB BPP w non-stress IMPRESSION: Adequate biophysical profile. Variable heart rate. Moderate right hydronephrosis. Impression dictated by: Michi Hayden M.D. 09/22/2024 1:55 PM Dictation Location: [email or web address] Electronically authenticated by: [id number] Y Date: 09/22/2024 13:55 Dictated By: Michi Hayden D.O. Signed By: 09/22/24 1358 DD/ 54 TD/TT: Spinning Machine Operator: [facility] Radiology Study observation (narrative) [facility] US OB BPP W NON-STRESS Ordered By: Radiologist Radiology on 09-22-2024 [facility] Work Phone: Urinalysis macro (dipstick) panel (U)on 09-22-2024 Bilirubin, UA Negative Negative - 4(70) +++ mg/dL [facility] Blood, UA Negative Negative - 50 Titus/mcL [facility] Clarity, UA Clear [facility] Color, UA Yellow [facility] Glucose, UA Negative Negative - 2000(110) ++++ mg/dL [facility] Interpretation and review of laboratory results Normal [facility] Ketones, UA Negative Negative - 160(16) ++++ mg/dL [facility] Leukocytes, UA Negative Negative - 500+++ Tristan/mcL [facility] Nitrite, UA Negative Negative - Positive [facility] pH, UA 6 5 - 9 [facility] Protein, UA Negative Negative - 2000(20) ++++ mg/dL [facility] Spec Grav, UA 1.025 1 - 1.03 [facility] Urobilinogen, UA 0.2 0.2 - 12 mg/dL [facility] US OB BPP W NON-STRESS on 09-15-[address] [address] Ultrasound Report Signed Patient: APRIL PUENTE MR#: [id number] : 2000 Acct:[id number] Age/Sex: 24 / F ADM Date: 09/15/24 Loc: [facility] 250-[address]: Dwaine Peraza Ordering Physician: Dwaine Peraza Date of Service: 09/15/24 Procedure(s): US OB BPP w non-stress Accession Number(s): [id number] cc: Dwaine Peraza; Physician,Non-Staff M.DMichael [place] [address] Patient Name: APRIL PUENTE MRN: [id number] date: 2000 Sex: F Assigned Patient Location: [facility] Current Patient Location: [facility] Accession/Order Number: [id number] Exam Date: 09/15/2024 13:12 Report Date: 09/15/2024 [...] Velasco M.D. 09/15/2024 1:19 PM Dictation Location: [place] [address] Electronically authenticated by: [id number] Y Date: 09/15/2024 13:19 Dictated By: Blair Velasco M.D. Signed By: 09/15/24 1322 DD/ 1319 TD/TT: Spinning Machine Operator: [facility] Radiology, Radiologist, MD - 09/15/2024 [place] [address] Ultrasound Report Signed Patient: APRIL PUENTE MR#: [id number] : 2000 Acct:[id number] Age/Sex: 24 / F ADM Date: 09/15/24 Loc: [facility] 250-[address]: Dwaine Peraza Ordering Physician: Dwaine Peraza Date of Service: 09/15/24 Procedure(s): US OB BPP w non-stress Accession Number(s): [id number] cc: Dwaine Peraza; Physician,Non-Staff M.DMichael The [place] [id number] Patient Name: APRIL PUENTE MRN: [facility]:[id number] date: 2000 Sex: F Assigned Patient Location: [facility] Current Patient Location: [facility] Accession/Order Number: [id number] Exam Date: 09/15/2024 13:12 Report Date: 09/15/2024 [...] Velasco M.D. 09/15/2024 1:19 PM Dictation Location: [place] [address] Electronically authenticated by: [id number] Y Date: 09/15/2024 13:19 Dictated By: Blair Velasco M.D. Signed By: 09/15/24 1322 DD/ 1319 TD/TT: Spinning Machine Operator: [facility] Radiology Study observation (narrative) [facility] US OB BPP W NON-STRESS Ordered By: Radiologist Radiology on 09-15-2024 [facility] Work Phone: Urinalysis macro (dipstick) panel (U)on 09-15-2024 Bilirubin, UA Negative Negative - 4(70) +++ mg/dL [facility] Blood, UA Negative Negative - 50 Titus/mcL [facility] Clarity, UA Clear [facility] Color, UA Yellow [facility] Glucose, UA Negative Negative - 1999(110) ++++ mg/dL [facility] Interpretation and review of laboratory results Normal [facility] Ketones, UA Negative Negative - 160(16) ++++ mg/dL [facility] Leukocytes, UA Negative Negative - 500+++ Tristan/mcL [facility] Nitrite, UA Negative Negative - Positive [facility] pH, UA 7 5 - 9 [facility] Protein, UA Negative Negative - 1999(20) ++++ mg/dL [facility] Spec Grav, UA 1.015 1 - 1.03 [facility] Urobilinogen, UA 0.2 0.2 - 12 mg/dL [facility] Urinalysis macro (dipstick) panel (U)on 08-26-2024 Bilirubin, UA Negative Negative - 4(70) +++ mg/dL [facility] Blood, UA Negative Negative - 50 Titus/mcL [facility] Clarity, UA Clear [facility] Color, UA Yellow [facility] Glucose, UA Negative Negative - 1999(110) ++++ mg/dL [facility] Interpretation and review of laboratory results Normal [facility] Ketones, UA Negative Negative - 160(16) ++++ mg/dL [facility] Leukocytes, UA Negative Negative - 500+++ Tristan/mcL [facility] Nitrite, UA Negative Negative - Positive [facility] pH, UA 7.5 5 - 9 [facility] Protein, UA Negative Negative - 1999(20) ++++ mg/dL [facility] Spec Grav, UA 1.02 1 - 1.03 [facility] Urobilinogen, UA 0.2 0.2 - 12 mg/dL [facility] Throaton 07-24-2024 Throat culture Microbiology PROCEDURE: Throat Culture [R1] SOURCE: Throat BODY SITE: COLLECTED DATE/TIME: 07/22/2024 14:35 EDT RECEIVED DATE/TIME: 07/22/2024 16:27 EDT START DATE/TIME: 07/22/2024 16:28 EDT FREE TEXT SOURCE: Alfonso GAY, Lino Hamilton PA-C, Lino Sarabia. FINAL REPORTS Final Report [] Verified Date/Time: 07/24/2024 07:15 EDT 2+ Normal throat lb isolated Performing Locations R1: This test was performed at: [facility], [address] [place] [address], [facility] , , [facility] Comment on above: Performed By: #### [id number] #### [facility] [address] [place] [address] Family Medicine Office/Clini c Noteon 07-22-2024 Family [...] with voice recognition software. Occasional wrong-word or ???[id number]-l-[id number]??? 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 She follows with VICE PRESIDENT OF ENGINEERING Dr. Soto. Denies nausea or vomiting but [...] difficulty m (more content not included)... Normal [facility] Comment on above: Result Comment: Elec tronically Signed By: Alfonso GAY, Lino Frias\.br\Date and Time Signed: 07/22/24 14:54 EDT No Panel InformationOrdered By: Jayla Banuelos on 07-22-2024 Throat culture 2+ Normal throat lb isolated [facility] Patient Letter FTon 2024 Patient Letter [facility] Patient Letter [facility] [address], [place] [phone] July 22, 2024 APRIL PUENTE [address] [place] [address] : 2000 Please excuse APRIL PUENTE from work . Date and/or Time of Absence: From: 07/21/24 To: 07/24/24 May return to work on: 07/24/24 Restrictions: None Comments: Please excuse due to an acute illness. Provider Signature: Lino Hamilton PA-C Physician Reinforcing Steel Machine Operator [facility] [address] [facility] [address] [place] [address] Normal [facility] Urinalysis macro (dipstick) panel (U)on 07-09-2024 Bilirubin, UA Negative Negative - 4(70) +++ mg/dL [facility] Blood, UA Negative Negative - 50 Titus/mcL [facility] Clarity, UA Clear [facility] Color, UA Yellow [facility] Glucose, UA Negative Negative - 2000(110) ++++ mg/dL [facility] Interpretation and review of laboratory results Normal [facility] Ketones, UA Negative Negative - 160(16) ++++ mg/dL [facility] Leukocytes, UA Negative Negative - 500+++ Tristan/mcL [facility] Nitrite, UA Negative Negative - Positive [facility] pH, UA 7 5 - 9 [facility] Protein, UA Negative Negative - 2000(20) ++++ mg/dL [facility] Spec Grav, UA 1.015 1 - 1.03 [facility] Urobilinogen, UA 0.2 0.2 - 12 mg/dL [facility] US OB 14+ WEEKS ANATOMY SCAN on [...] II, MD, PHD at 30-Jun-2024 09:25:03 AM [facility] Normal Not Available Comment on above: Order Comment: US OB ANATOMY SINGLE W US OB CERVICAL LENGTH Estimated Date of Delivery: 10/14/24 Gestational Age as of 05/20/2024: 19w0d IGP,APTIMA HPV,AGE GDLNon AGE GDLN ACOG TESTING Note . [facility] Comment on above: TESTS RESULT FLAG UN ITS REF RANGE LAB Clinician Provided Cytology Information Source.............Cervix No. of containers..01 ThinPrep Vial Age Vijay AGUAYO Tanya... FLAG LEGEND: L-Low Normal,H-High Normal,LL-Alert Low,HH-Alert High <-Panic Low,>-Panic High,A-Abnormal,AA-Critical Abnormal Performed at: 01 =[address] [address] Lalita Ibrahim MD, HPV APTIMA Negative Negative [facility] Comment on above: This nucleic acid am plification test detects fourteen high- risk HPV types (16,18,31,33,35,39,45,51,52,56,58,59,66,68) without differentiation. Performed at: =[address] [id number] Sheet Metal Worker Helper: Lalita Ibrahim MD, Phone: [phone] Performed at: [address] [id number] Sheet Metal Worker Helper: Lalita Ibrahim MD, Phone: [phone] IGP, RFX APTIMA HPV ASCU Note Abnormal . [facility] Comment on above: TESTS RESULT FLAG U NITS REF RANGE LAB DIAGNOSIS: [A] 02 EPITHELIAL CELL ABNORMALITY. ATYPICAL SQUAMOUS CELLS OF UNDETERMINED SIGNIFICANCE (ASC-US). Recommendation: [A] 02 Suggest follow up as clinically appropriate. Specimen adequacy: 02 Satisfactory for evaluation. Endocervical and/or squamous metaplastic cells (endocervical component) are present. Performed by: 02 Mimi Jimenez, Process Control Engineer ([facility]) Electronically si... 02 Lino Rodríguez MD, [...] <-Panic Low,>-Panic High,A-Abnormal,AA-Critical Abnormal Performed at: [address] [address] Lalita Ibrahim MD, Interpretation and review of laboratory results Abnormal [facility] SPATULA-ALONE CERVIX [facility] RECURRENT VAGINITIS (HTRX)on 05-21-2024 ATOPOBIUM VAGINAE 0 [facility] ATOPOBIUM VAGINAE Not detected [facility] BVAB 2,3 (BACTERIAL VAGINOSIS ASSOCIATED BACTERIA 2, 3); MOBILUNCUS SPP 0 [facility] BVAB 2,3 (BACTERIAL VAGINOSIS ASSOCIATED BACTERIA 2, 3); MOBILUNCUS SPP Not detected [facility] DAVIDA ALBICANS, PARAPSILOSIS, TROPICALIS 0 [facility] DAVIDA ALBICANS, PARAPSILOSIS, TROPICALIS Not detected [facility] DAVIDA GLABRATA 0 [facility] DAVIDA GLABRATA Not detected [facility] DAVIDA KRUSEI 0 [facility] DAVIDA KRUSEI Not detected [facility] CHLAMYDIA TRACHOMATIS 0 [facility] CHLAMYDIA TRACHOMATIS Not detected N [facility] GARDNERELLA VAGINALIS 0 NOM [facility] GARDNERELLA VAGINALIS Not detected N [facility] MEGASPHAERA (TYPES 1, 2) 0 [facility] MEGASPHAERA (TYPES 1, 2) Not detected [facility] MYCOPLASMA GENITALIUM 0 [facility] MYCOPLASMA GENITALIUM Not detected N [facility] NEISSERIA GONORRHOEAE 0 [facility] NEISSERIA GONORRHOEAE Not detected N [facility] TRICHOMONAS VAGINALIS 0 [facility] TRICHOMONAS VAGINALIS Not detected N [facility] Urinalysis macro (dipstick) panel (U)on 05-20-2024 Bilirubin, UA Negative Negative - 4(70) +++ mg/dL [facility] Blood, UA Negative Negative - 50 Titus/mcL [facility] Clarity, UA Clear [facility] Color, UA Yellow [facility] Glucose, UA Negative Negative - 1999(110) ++++ mg/dL [facility] Interpretation and review of laboratory results Normal [facility] Ketones, UA Negative Negative - 160(16) ++++ mg/dL [facility] Leukocytes, UA Negative Negative - 500+++ Tristan/mcL [facility] Nitrite, UA Negative Negative - Positive [facility] pH, UA 5.5 5 - 9 [facility] Protein, UA Negative Negative - 1999(20) ++++ mg/dL [facility] Spec Grav, UA 1.025 1 - 1.03 [facility] Urobilinogen, UA 0.2 0.2 - 12 mg/dL [facility] AFP, SERUM, OPEN SPINA BIFID Aon 05-19-2024 AFP MOM 1.09 . [facility] AFP VALUE 40.6 ng/mL . [facility] COMMENT: Comment . [facility] Comment on above: Torri John , Ph.D., [facility] Director References: Available Upon Request. Multiples Of Median Cutoffs For AFP Elevations Christianson 2.5 Black 2.8 IDD 2.0 Twins 4.5 Abbreviation Definitions IDD - Insulin Dep Diabetes OSBR - Open Spina Bifida Risk For further inquiries contact [facility] at [phone]. This test was developed and its performance characteristics determined by [facility]. It has not been cleared or approved by the Food and Drug Administration. Performed at: - [facility] [address] [place], [place] [id number] Sheet Metal Worker Helper: Amee Marmolejo [facility], Phone: [phone] GEST. AGE ON COLLECTION DATE 18.7 . weeks [facility] GESTAT. AGE BASED ON LMP . [facility] Comment on above: Recalculations are n ot recommended when gestational dating by LMP and ultrasound are within 10 days. INSULIN DEP DIABETES No . [facility] INTERPRETATION Comment . [facility] Comment on above: Interpretation: Scre [...] Customer Services to discuss available options. The [employer] recommends amniocentesis be offered to women age 35 and older. [age] [facility] MULTIPLE GESTATION No . [facility] OSBR RISK 1 IN 9231 . [facility] RACE Other . [facility] RESULTS Report . [facility] TEST RESULTS: Negative . [facility] WEIGHT 220 . lbs [facility] N N LMP [id number] 1 15 N 1 Y 220 N N N N N White/ [facility] Urinalysis macro (dipstick) panel (U)on 04-23-2024 Bilirubin, UA Negative Negative - 4(70) +++ mg/dL [facility] Blood, UA Negative Negative - 50 Titus/mcL [facility] Clarity, UA Clear [facility] Color, UA Yellow [facility] Glucose, UA Negative Negative - 2000(110) ++++ mg/dL [facility] Interpretation and review of laboratory results Abnormal [facility] Ketones, UA Negative Negative - 160(16) ++++ mg/dL [facility] Leukocytes, UA Negative Negative - 500+++ Tristan/mcL [facility] Nitrite, UA Negative Negative - Positive [facility] pH, UA 7.5 5 - 9 [facility] Protein, UA Trace Negative - 2000(20) ++++ mg/dL [facility] Spec Grav, UA 1.02 1 - 1.03 [facility] Urobilinogen, UA 0.2 0.2 - 12 mg/dL [facility] MLR HEMOGLOBIN A1Con 1216-2 024 Glucose [Mass/Vol] 97 mg/dL [facility] HbA1c (Bld) [Mass fraction] 5 % 4.5 - 6.2 % [facility] Comment on above: ADA RECOMMENDED LIMI T 4.0 - 6.0 ADA THERAPEUTIC TARGET < 7.0 ACTION SUGGESTED > 7.0 [facility] CHEMISTRYOrdered By: SYSTEM SYSTEM on [...] Remisol Triglyceride [Mass/Vol] 252 mg/dL High <=149mg/dL FT Remisol TSH Qn 1.29 m[IU]/L Normal 0.34 - 5.60 mcIU/mL [facility] Remisol CHEMISTRYOrdered By: Hiro fernandez on 10-31-2022 HbA1c (Bld) [Mass fraction] 4.9 % Normal <=5.9% FT [facility] Laboratory Testing Ordered By: Generated DomainUser on 05-08-2021 SARS-CoV-2 (COVID-19) RNA GA+probe Ql (Resp) Detected Invalid Interpretation Code Not Detected [facility] Comment on above: Result Comment: Chanel ents who have a positive COVID-19 test result may now have treatment options. Treatment options are available for patients with mild to moderate symptoms and for hospitalized patients. Visit our website at [email or web address] for resources and information. This nucleic acid amplification test was developed and its performance characteristics determined by [facility]. Nucleic acid amplification tests include RT-PCR and [...] detected) result in this assay. Performed at: [address] [id number] PhD Mp Galdamez 02-10-2019 CNCO Letter Text Normal [facility] CNOVon 02-03-2019 CNOV Office Visit (PNTRMN ) APRIL MIN ([id number]) 4 F Date Time Provider Department 02/03/19 4:15 PM COMPUTING ARCHITECT CINDY DANIELS PNTRMN During your visit today, [...] x 100-150 hakeem snacks daily is ok https://[employer]/ health/606-qlzaimo-kl acks https://www.eatPloreds.c om/169-vojctyt-yqahmh / 1/2 serving healthy fat: 1/2 oz [...] months for attainment of goals. April Bib Mckeon is a 19 year old female, [...] February 03, 2019 TIME: 3:48 PM PAGER: [phone] 02/03/2019 4:22 PM Addendum [...] x 100-150 hakeem snacks daily is ok https://[employer]/ health/049-pwkusie-az acks https://www.[employer] om/078-cjcgoed-xrpuho / 1/2 serving healthy fat: 1/2 oz [...] (Batool Ayala) Evelia, MS, RD, CSP, LD [facility] [phone] Referring Provider: SHEA THOMSON) [[id number]] Allergies As of Date: 02/03/2019 (No Known [...] x 100-150 hakeem snacks daily is ok https://[employer]/ [employer].com/571-jokcoid-ab acks https://www.[employer].c om/799-wwsptxy-aymlyu / 04/30 serving healthy fat: 1/2 oz [...] Татьяна Ayala) MS Evelia, RD, CSP, LD [facility] [phone] Letter Text Encounter Status:Closed by ТАТЬЯНА QUILES on 02/03/19 Normal [facility] CNOV Office Visit (PGASMN ) ART MCKEONAPRIL Mccartney ([id number]) 4 F Date Time Provider Department 02/03/19 2:30 PM JOHNNY ARANGO During your visit today, we recorded the following information about you: Temperature Pulse Respiration Blood pressure 97.8 degrees 96/minute 20/minute 124/74 Weight Height Last Period 110.9 kg 1.63 m 01/24/19 Johnny Mendieta MD 02/03/2019 4:33 PM Signed [facility] Initial Visit Chief Complaint: April Dimashailee Lynchs is a 19 year old female who [...] 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 Recently, her weight trend has been: Trending [...] surgery? no Diabetes: yes in maternal grandmother CAD/[place]: no Early coronary disease in first degree [...] Abs Lymph 1.00 - 4.00 k/uL 2.76 Attala% % 8.4 Abs Attala <0.87 k/uL 0.70 Eosin% % 1.7 Abs [...] clinic, April Mckeon will meet with a dry pan charger today. 2) Obesity: Yes 3) Hypertension: No [...] in 4 months Referring Provider: SHEA THOMSON) [[id number]] Allergies As of Date: 02/03/2019 (No Known Allergies) Date Reviewed: 10/27/2018 Reviewed by: Shea Ngo) MD Yandel - Fully Assessed Reason for Visit: Consult [502] Cmt: non-alchoholic fatty liver disease Primary Visit Diagnosis:Hepatic steatosis [K76.0] Other Visit Diagnoses:NAFLD (nonalcoholic fatty liver disease) [K76.0] Pediatric obesity due to excess calories without serious comorbidity, unspecified BMI [E66.09] Order(s):CERULOPLASMI N BLD [SQCERULO] Order #: [id number]. #:[id number] HEP REMOTE PANEL BL [SQHREMOP] Order #: [id number]. #:[id number] HGB A1C [LNWUB0Z] Order #: [id number]. #:[id number] HEPATIC FUNCTION PNL [SQHFP] Order #: [id number] FUTURE Prescriptions as of 02/03/2019 Sig: ERGOCALCIFEROL [...] by JOHNNY ARANGO MD on 02/03/19 Normal [facility] Ceruloplasminon 02-03-2019 Ceruloplasmin 29 mg/dL Normal 16-45 [facility] Comment on above: Performed By: #### C ERULO, HBA1C, HREMOP ####[facility] [place], [place] [phone] Hemoglobin A1con 02-03-2019 HbA1c (Bld) [Mass fraction] 4.9 % Normal 4.3-5.6 [facility] Comment on above: Result Comment: Amer ican Diabetes Association guidelines indicate that patients with HgbA1c in the range 5.7-6.4% are at increased risk for development of diabetes, and intervention by lifestyle modification may be beneficial. HgbA1c greater or equal to 6.5% is considered diagnostic of diabetes. Performed By: #### C ERULO, HBA1C, HREMOP ####[facility] [place], [place] [phone] HbA1c (Bld) [Mass fraction] 94 mg/dL Normal [facility] Comment on above: Result Comment: eAG: (Estimated average glucose) is a calculated value from HgbA1c and is field support representative of the average blood glucose level in the last 2-3 month period. Performed By: #### C ERULO, HBA1C, HREMOP ####[facility] [place], [place] [phone] Hepatic Functn Panelon 02-03 Albumin [Mass/Vol] 4.4 g/dL Normal 3.2-4.5 [facility] Comment on above: Performed By: #### H FP ####[place] [id number] [place], [place] [phone] ALP [Catalytic activity/Vol] 75 U/L Normal 45-87 [facility] Comment on above: Result Comment: Refe [...] Clin Biochem. Performed By: #### H FP ####[place] [address] [place], [place] [phone] ALT [Catalytic activity/Vol] 26 U/L Normal 7-38 [facility] Comment on above: Result Comment: (NOT E) Reference ranges for this patient's age group have not been established. These reference ranges reflect verified or established ranges for the adult population. Interpret these ranges wtih caution using clinical context and additional reference resources. Performed By: #### H FP ####[address] [phone] AST [Catalytic activity/Vol] 24 U/L Normal 13-35 [facility] Comment on above: Result Comment: (NOT E) Reference ranges for this patient's age group have not been established. These reference ranges reflect verified or established ranges for the adult population. Interpret these ranges with caution using clinical context and additional reference resources. Performed By: #### H FP ####[address] [phone] Bilirubin [Mass/Vol] 0.2 mg/dL Normal 0.2-1.3 [facility] Comment on above: Result Comment: (NOT E) Reference ranges for this patient's age group have not been established. These reference ranges reflect verified or established ranges for the adult population. Interpret these ranges with caution using the clinical context and additional reference resources. Performed By: #### H FP ####[address] [phone] Bilirubin,Conjugated <0.2 Normal <0.2 [facility] Comment on above: Result Comment: (NOT E) Reference ranges for this patient's age group have not been established. These reference ranges reflect verified or established ranges for the adult population. Interpret these ranges with caution using the clinical context and additional reference resources. Performed By: #### H FP ####[address] [phone] Protein [Mass/Vol] 7.8 g/dL Normal 6.3-8.0 [facility] Comment on above: Result Comment: (NOT E) [...] MK, Home I, Srinivasan M, et al. [place] Laboratory Initiative on Reference Interval Database(CALIPER): pediatric reference intervals for an integrated clinical chemistry and immunoassay analyzer, Burns ENERGY CONTROL OFFICER [id number]. Clin Biochem 2009;42:885-891. Performed By: #### H FP ####[address] [phone] Hepatitis Remote Panelon HBsAg Negative Normal Negative [facility] Comment on above: Performed By: #### C ERULO, HBA1C, HREMOP ####[address] [phone] Hep B Core Ab,Total Negative Normal Negative [facility] Comment on above: Performed By: #### C ERULO, HBA1C, HREMOP ####[address] [phone] Hepatitis C Ab IA Negative Normal Negative [facility] Comment on above: Performed By: #### C ERULO, HBA1C, HREMOP ####[address] [phone] HepB Surface Ab,Qual Negative Normal Negative [facility] Comment on above: Result Comment: NEGA TIVE Performed By: #### C ERULO, HBA1C, HREMOP ####[address] [phone] PROGRESSon 02-03-2019 PROGRESS HNO ID: [id number] Author: Татьяна Quiles Service: ? Author Type: [...] x 100-150 hakeem snacks daily is ok https://[employer]/ health/357-pjrrbwu-pe acks https://www.eatthis.c om/573-gkeldmd-miinxa / 1/2 serving healthy fat: 1/2 oz [...] months for attainment of goals. April Bib Mckeon is a 19 year old female, [...] February 03, 2019 TIME: 3:48 PM PAGER: [phone] Normal [facility] PROGRESS HNO ID: [id number] Author: Momo Coronado (Coord) Service: ? Author Type: Research Type: Progress Notes Filed: 02/03/2019 4:01 PM Note Text: DATE: February 03, 2019 TIME: 03:20 PM PT. NAME: April Puente Mckeon [facility]#: [id number] IRB #: [id number] PROTOCOL: TARGET-ROJAS: 5-year Longitudinal Observational Study of Patients with Nonalcoholic Fatty Liver or Nonalcoholic Steatohepatitis Principle Payroll Accountant: Dr. Johnny mccartney [place]: Momo Corondao, (Pager [phone]) [facility] nascar pit crew person for study related questions: PedMichael Vang (Momo Coronado, Research Crd - Pager [phone]) April Mckeon was seen today as standard of care visit with Dr. Mendieta in the Pediatric Gastroenterology Clinic. In addition,April Mckeon was consented and enrolled in the TARGET-ROJAS- study [id number]. Watchstander and/or Research Coordinator explained the protocol to [...] standard of care visit. _ Tata Knowles [facility] Normal [facility] PROGRESS HNO ID: [id number] Author: Johnny Mendieta Service: ? 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 Recently, her weight trend has been: Trending [...] surgery? no Diabetes: yes in maternal grandmother CAD/[place]: no Early coronary disease in first degree [...] Abs Lymph 1.00 - 4.00 k/uL 2.76 Attala% % 8.4 Abs Attala <0.87 k/uL 0.70 Eosin% % 1.7 Abs [...] clinic, April Mckeon will meet with a dry pan charger today. 2) Obesity: Yes 3) Hypertension: No [...] Metabolic Liver Clinic February 03, 2019 Normal [facility] CNPTOUTREACHon 12-10-2018 CNPTOUTREA Patient Outreach (PGASMN) GEORGETTE MINBY Bib ([id number]) 4 F Date Time Provider Department 12/10/18 SHEA THOMSON) [facility] During your visit today, we recorded the [...] Status:Closed by SEN MENDOZA on 12/10/18 Normal [facility] PROGRESSon 12-10-2018 PROGRESS HNO ID: [id number] Author: Sen Mendoza Service: ? Author Type: [...] questions for RN at this time. Normal [facility] Amylaseon 10-27-2018 Amylase [Catalytic activity/Vol] 56 U/L Normal 30-104 [facility] Comment on above: Result Comment: (NOT E) Reference ranges for this patient's age group have not been established. These reference ranges reflect verified or established ranges for the adult population. Interpret these ranges with caution using the clinical context and additional reference resources. Performed By: #### A MYL, CRP, LIPA, VITD, ENDOMY, GLIIGA, TGIGA #### [facility] [address] [place] [phone] C-Reactive Proteinon 019 CRP [Mass/Vol] 0.3 mg/dL Normal <0.9 [facility] Comment on above: Performed By: #### A MYL, CRP, LIPA, VITD, ENDOMY, GLIIGA, TGIGA #### [facility] [address] [place] [phone] CBC and Differentialon 10-27 Abs Baso <0.03 Normal <0.11 [facility] Comment on above: Performed By: #### A MYL, CRP, LIPA, VITD, ENDOMY, GLIIGA, TGIGA #### [facility] [address] [place] [phone] Abs Attala 0.70 k/uL Normal <0.87 [facility] Comment on above: Performed By: #### A MYL, CRP, LIPA, VITD, ENDOMY, GLIIGA, TGIGA #### [facility] [address] [place] [phone] Abs Neut 4.75 k/uL Normal 1.45-7.50 [facility] Comment on above: Performed By: #### A MYL, CRP, LIPA, VITD, ENDOMY, GLIIGA, TGIGA #### [place] [phone] Absolute nRBC <0.01 Normal <0.01 [facility] Comment on above: Performed By: #### A MYL, CRP, LIPA, VITD, ENDOMY, GLIIGA, TGIGA #### [place] [phone] Basophils/100 WBC (Bld) 0.2 % Normal [facility] Comment on above: Performed By: #### A MYL, CRP, LIPA, VITD, ENDOMY, GLIIGA, TGIGA #### [place] [phone] DTYPE Auto Diff Normal [facility] Comment on above: Performed By: #### A MYL, CRP, LIPA, VITD, ENDOMY, GLIIGA, TGIGA #### [place] [phone] Eosinophils (Bld) [#/Vol] 0.14 10*3/uL Normal <0.46 [facility] Comment on above: Performed By: #### A MYL, CRP, LIPA, VITD, ENDOMY, GLIIGA, TGIGA #### [place] [phone] Eosinophils/100 WBC (Bld) 1.7 % Normal [facility] Comment on above: Performed By: #### A MYL, CRP, LIPA, VITD, ENDOMY, GLIIGA, TGIGA #### [place] [phone] Erythrocyte distribution width (RBC) [Ratio] 12.4 % Normal 11.5-15.0 [facility] Comment on above: Performed By: #### A MYL, CRP, LIPA, VITD, ENDOMY, GLIIGA, TGIGA #### [place] [phone] Hematocrit (Bld) [Volume fraction] 38.5 % Normal 36.0-46.0 [facility] Comment on above: Performed By: #### A MYL, CRP, LIPA, VITD, ENDOMY, GLIIGA, TGIGA #### [place] [phone] Hemoglobin (Bld) [Mass/Vol] 12.5 g/dL Normal 11.5-15.5 [facility] Comment on above: Performed By: #### A MYL, CRP, LIPA, VITD, ENDOMY, GLIIGA, TGIGA #### [place] [phone] Lymphocytes (Bld) [#/Vol] 2.76 10*3/uL Normal 1.00-4.00 [facility] Comment on above: Performed By: #### A MYL, CRP, LIPA, VITD, ENDOMY, GLIIGA, TGIGA #### [place] [phone] Lymphocytes/100 WBC (Bld) 33.0 % Normal [facility] Comment on above: Performed By: #### A MYL, CRP, LIPA, VITD, ENDOMY, GLIIGA, TGIGA #### [place] [phone] MCH (RBC) [Entitic mass] 27.8 pG Normal 26.0-34.0 [facility] Comment on above: Performed By: #### A MYL, CRP, LIPA, VITD, ENDOMY, GLIIGA, TGIGA #### [place] [address] MCHC (RBC) [Mass/Vol] 32.5 g/dL Normal 30.5-36.0 [facility] Comment on above: Performed By: #### A MYL, CRP, LIPA, VITD, ENDOMY, GLIIGA, TGIGA #### [place] [address] [place] [phone] MCV (RBC) [Entitic vol] 85.7 fL Normal 80.0-100.0 [facility] Comment on above: Performed By: #### A MYL, CRP, LIPA, VITD, ENDOMY, GLIIGA, TGIGA #### [place] [address] Monocytes/100 WBC (Bld) 8.4 % Normal [facility] Comment on above: Performed By: #### A MYL, CRP, LIPA, VITD, ENDOMY, GLIIGA, TGIGA #### [place] [address] Neutrophils/100 WBC (Bld) 56.7 % Normal [facility] Comment on above: Performed By: #### A MYL, CRP, LIPA, VITD, ENDOMY, GLIIGA, TGIGA #### [place] [address] NRBCs 0.0 /100 WBC Normal 0 [facility] Comment on above: Performed By: #### A MYL, CRP, LIPA, VITD, ENDOMY, GLIIGA, TGIGA #### [place] [address] [place] [address] Platelet mean volume (Bld) [Entitic vol] 8.5 fL Low 9.0-12.7 [facility] Comment on above: Performed By: #### A MYL, CRP, LIPA, VITD, ENDOMY, GLIIGA, TGIGA #### [place] [phone] Platelets (Bld) [#/Vol] 387 10*3/uL Normal 150-400 [facility] Comment on above: Performed By: #### A MYL, CRP, LIPA, VITD, ENDOMY, GLIIGA, TGIGA #### [facility] [address] [place] [address] RBC (Bld) [#/Vol] 4.49 10*6/uL Normal 3.90-5.20 [facility] Comment on above: Performed By: #### A MYL, CRP, LIPA, VITD, ENDOMY, GLIIGA, TGIGA #### [facility] [address] [place] [address] WBC (Bld) [#/Vol] 8.37 10*3/uL Normal 3.70-11.00 [facility] Comment on above: Performed By: #### A MYL, CRP, LIPA, VITD, ENDOMY, GLIIGA, TGIGA #### [facility] [address] [place] [address] CNCOon 10-27-2018 CNCO Letter Text Normal [facility] CNOVon 10-27-2018 CNOV Office Visit (PGASAV ) APRIL MIN ([id number]) 4 F Date Time Provider Department 10/27/18 1:00 PM SHEA THOMSON) PGASAV During your visit today, we recorded the following information about you: Weight Height Last Period 107.5 kg 1.643 m 10/13/18 Shea Thomson MD, MD 10/27/2018 1:48 PM Signed Referring MD: This patient was referred by Maria Elena L Horn, JEWEL STAKER-C for evaluation and management of abdominal complaints [...] labwork or ultrasounds were completed. Mostly just LEGAL DEPARTMENT MANAGER that they saw started medications. Bowel movement [...] 2.39) based on CDC (Girls, 2-20 Years) [id number] data using vitals from 10/27/2018.)(>99 %ile (Z= [...] imaging was reviewed in detail. Impression: April Dimashailee Mckeon is here in pediatric gastroenterology clinic [...] prn Shea Thomson MD Pediatric Gastroenterology Staff [facility] CC: Maria Elena Lara, JEWEL STAKER-C [address] [place] [id number] Shea Thomson MD, MD 10/27/2018 1:28 PM Signed Labs today Stool sample - drop off at local hospital Ultrasound - at local hospital Bentyl - take pain three times per day as needed for pain Referring Provider: MARIA ELENA LARA [[id number]] Allergies As of Date: 10/27/2018 (No Known Allergies) Date Reviewed: 10/27/2018 Reviewed by: Shea Ngo) MD Yandel - Fully Assessed Reason for Visit: New Patient [172] Primary Visit Diagnosis:RUQ abdominal pain [R10.11] Other Visit Diagnoses:Nausea [R11.0] Constipation, unspecified constipation type [K59.00] Order(s):TSH BLD [SQTSH] Order #: [id number] FUTURE SED RATE WESTERGREN [SQWSR] Order #: [id number] FUTURE ENDOMYSIAL IGA AB [SQENDOMY] Order #: [id number] IGA BLD [SQIGA] Order #: [id number] FUTURE C-REACTIVE PROTEIN (CRP) [SQCRP] Order #: [id number] VITAMIN D 25 HYDROXY [SQVITD] Order #: [id number] COMP METABOLIC PANEL [SQCMP] Order #: [id number] FUTURE CBC + DIFF [SQCBCDIF] Order #: [id number] T4 FREE/FREE THYROX [SQFT4] Order #: [id number] FUTURE LIPASE BLD [SQLIPA] Order #: [id number] GLIADIN (DEAMIDATED) AB, IGA [SQGLIIGA] Order #: [id number] AMYLASE BLD [SQAMYL] Order #: [id number] TRANSGLUTAMINASE IGA [SQTGIGA] Order #: [id number] dicyclomine (BENTYL) 20 mg tabletTake 1 tablet [...] by mouth once daily. Encounter Status:Closed by THOMSON, SHEA ALI MD on 10/27/18 Normal [facility] Comp Metabolic Panelon 10-27 Albumin [Mass/Vol] 4.5 g/dL Normal 3.2-4.5 [facility] Comment on above: Result Comment: Refe rence ranges were not locally established for this patient's age group. The normal values are based on the following source: Albumin (Gen. 2) (package insert v 10.0 Z[place]ian). [employer], [place], [place], June 2014. Performed By: #### F T4 WSR, IGA ####[facility] [place], [place] [phone] ALP [Catalytic activity/Vol] 72 U/L Normal 50-117 [facility] Comment on above: Result Comment: Refe rence ranges were not locally established for this patient's age group. The normal values are based on the following source: Kira MP, Ethan AH, et al. CLSI based transference of the CALIPER database of pediatric reference intervals from [employer] to [employer], [employer], Ana, and [employer] Clinical Chemistry Assays: Direct validation using reference samples from the CALIPER cohort. Clin Biochem. Performed By: #### F T4 WSBib, IGA ####[facility] [place], [place] [phone] ALT [Catalytic activity/Vol] 29 U/L Normal 7-38 [facility] Comment on above: Result Comment: (NOT E) Reference ranges for this patient's age group have not been established. These reference ranges reflect verified or established ranges for the adult population. Interpret these ranges wtih caution using clinical context and additional reference resources. Performed By: #### F T4, WSR, IGA ####[facility] [place], [place] [phone] Anion gap [Moles/Vol] 13 mmol/L Normal 9-18 [facility] Comment on above: Result Comment: (NOT E) Reference ranges for this patient's age group have not been established. These reference ranges reflect verified or established ranges for the adult population. Interpret these ranges with caution using the clinical context and additional reference resources. Performed By: #### F T4 WSR, IGA ####[facility] [place], [place] [phone] AST [Catalytic activity/Vol] 19 U/L Normal 13-35 [facility] Comment on above: Result Comment: (NOT E) Reference ranges for this patient's age group have not been established. These reference ranges reflect verified or established ranges for the adult population. Interpret these ranges with caution using clinical context and additional reference resources. Performed By: #### F T4 WSR, IGA ####[place] [address] [place], [place] [phone] Bilirubin [Mass/Vol] 0.2 mg/dL Normal 0.2-1.3 [facility] Comment on above: Result Comment: (NOT E) Reference ranges for this patient's age group have not been established. These reference ranges reflect verified or established ranges for the adult population. Interpret these ranges with caution using the clinical context and additional reference resources. Performed By: #### F Camryn WSR, IGA ####[facility] [place], [place] [phone] Calcium [Mass/Vol] 9.7 mg/dL Normal 8.5-10.2 [facility] Comment on above: Result Comment: Refe rence ranges were not locally established for this patient's age group. The normal values are based on the following source: Calcium (Gen. 2) (package insert v3.0 [place]ian). [employer], [place], [place], January 2013. Performed By: #### F T4, WSR, IGA ####[facility] [place], [place] [phone] Chloride [Moles/Vol] 103 mmol/L Normal 97-105 [facility] Comment on above: Result Comment: (NOT E) Reference ranges for this patient's age group have not been established. These reference ranges reflect verified or established ranges for the adult population. Interpret these ranges with caution using the clinical context and additional reference resources. Performed By: #### F T4, WSR, IGA ####[facility] [place], [place] [phone] CO2 [Moles/Vol] 22 mmol/L Normal 22-30 [facility] Comment on above: Result Comment: (NOT E) Reference ranges for this patient's age group have not been established. These reference ranges reflect verified or established ranges for the adult population. Interpret these ranges with caution using the clinical context and additional reference resources. Performed By: #### F ANJUM Cowan, IGA ####[facility] [place], [place] [phone] Creatinine [Mass/Vol] 0.64 mg/dL Normal 0.58-0.96 [facility] Comment on above: Result Comment: Refe rence ranges for this patient's age group have not been established. These reference ranges reflect verified or established ranges for the adult population. Interpret these ranges with caution using the clinical context and additional reference resources. Performed By: #### F ANJUM Cowan, IGA ####[facility] [place], [place] [phone] GFR/1.73 sq M predicted among non-blacks MDRD (S/P/Bld) [Vol rate/Area] 0.65 mL/min/{1.73_m2} Normal [facility] Comment on above: Result Comment: eGFR (Estimated GFR) Units of measure: mL/min/1.73 meters squared eGFR in pediatric patients is calculated from the Bedside García equation based on a stable serum creatinine and height. The creatinine assay has been calibrated to be traceable to IDLeondra music. To calculate the patient's eGFR, multiply the given factor by the patient's height (centimeters). An eGFR <60 mL/min/1.73m2 for >3 months is consistent with chronic kidney disease. Refer to KDOQI guidelines for clinical interpretation. Performed By: #### F ANJUM Cowan, IGA ####[facility] [place], [place] [phone] Glucose [Mass/Vol] 108 mg/dL High 74-99 [facility] Comment on above: Result Comment: Refe rence ranges for this patient's age group have not been established. These reference ranges reflect verified or established ranges for the adult population. Interpret these ranges with caution using the clinical context and additional reference resources. The [place] Diabetes Association (ADA) provides guidance for cutoff [...] Standards of Medical Care in Diabetes 2016, [place] Diabetes Association. Diabetes Care. 2016.39(Suppl 1). Performed By: #### F T4, WSR, IGA ####[facility] [address] [place], [place] [phone] Potassium [Moles/Vol] 4.0 mmol/L Normal 3.7-5.1 [facility] Comment on above: Performed By: #### F T4, WSR, IGA ####[facility] [address] [place], [place] [phone] Protein [Mass/Vol] 7.8 g/dL Normal 6.3-8.0 [facility] Comment on above: Result Comment: Refe rence ranges for this patient's age group have not been established. These reference ranges reflect verified or established ranges for the adult population. Interpret these ranges with caution using the clinical context and additional reference resources. Performed By: #### F T4, WSR, IGA ####[facility] [address] [place], [place] [phone] Sodium [Moles/Vol] 138 mmol/L Normal 136-144 [facility] Comment on above: Result Comment: (NOT E) Reference ranges for this patient's age group have not been established. These reference ranges reflect verified or established ranges for the adult population. Interpret these ranges with caution using the clinical context and additional reference resources. Performed By: #### F T4, WSR, IGA ####[facility] [place], [place] [phone] Urea nitrogen [Mass/Vol] 14 mg/dL Normal 5-18 [facility] Comment on above: Result Comment: Refe rence ranges were not locally established for this patient's age group. The normal values are based on the following source: Urea/BUN (package insert v7.0 Z[place]ian). [facility], [place], [place], March 2015. Performed By: #### F T4, WSR, IGA ####[facility] [place], [place] [phone] Endomysial IgA Abson 019 Endomysial IgA Abs <1:10 Normal <1:10 [facility] Comment on above: Result Comment: Refe rence Range: Negative < 1:10 Dilution IgA endomysial antibody is a highly sensitive and specific marker for celiac disease in patients with a normal IgA and on a normal diet. Levels reflect the adherence to gluten free diet. Performed By: #### A MYL, CRP, LIPA, VITD, ENDOMY, GLIIGA, TGIGA #### [facility] [address] [place] [id number] Free T4on 10-27-2018 Free T4 [Mass/Vol] 1.3 ng/dL Normal 0.8-1.5 [facility] Comment on above: Performed By: #### F T4, WSR, IGA ####[facility] [place], [place] [phone] Gliad Deamidated IgAon 10-27 Gliad IgA Ab 11 Units Normal <20 [facility] Comment on above: Result Comment: Nega tive : < 20 Units Weak Positive : 20 - 30 Units Moderate Pos to Strong Pos: >30 Units The following results were obtained with the [employer] QUANTA Lite Gliadin IgA MIKE. Gliadin IgA values obtained with different manufacturers' assay methods may not be used interchangeably. The magnitude of the reported IgA levels cannot be correlated to an endpoint titer. Performed By: #### A MYL, CRP, LIPA, VITD, ENDOMY, GLIIGA, TGIGA #### [facility] [address] [place] [id number] HISTORY PHYSICALon HISTORY PHYSICAL HNO ID: [id number] Author: Shea Ngo) MD Yandel Service: ? [...] labwork or ultrasounds were completed. Mostly just LEGAL DEPARTMENT MANAGER that they saw started medications. Bowel movement [...] 2.39) based on CDC (Girls, 2-20 Years) [id number]-[id number] data using vitals from 10/27/2018.)(>99 %ile (Z= [...] sooner santi Thomson MD Pediatric Gastroenterology Staff [facility]'s CC: Maria Elena Lara, JEWEL STAKER-C [address] [facility] [address] Normal [facility] IgAon 10-27-2018 IgA [Mass/Vol] 321 mg/dL Normal 78-391 [facility] Comment on above: Performed By: #### F T4, WSR, IGA ####[facility] [place], [place] [phone] Lipaseon 10-27-2018 Lipase [Catalytic activity/Vol] 20 U/L Normal 16-61 [facility] Comment on above: Result Comment: (NOT E) Reference ranges for this patient's age group have not been established. These reference ranges reflect verified or established ranges for the adult population. Interpret these ranges with caution using the clinical context and additional reference resources. Performed By: #### A MYL, CRP, LIPA, VITD, ENDOMY, GLIIGA, TGIGA #### [facility] [address] [place], [place] [address] Sed Rate Westergrenon 2018 Sed Rate Westergren 27 mm/hr High 0-20 [facility] Comment on above: Performed By: #### F T4, WSR, IGA ####[facility] [place], [place] [phone] TSHon 10-27-2018 TSH Qn 3.470 uU/mL Normal 0.510-4.300 [facility] Comment on above: Result Comment: Refe rence ranges were not locally established for this patient's age group. The normal values are based on the following source: Dru W, Kimberly V. Reference Ranges for Adults and Children: Pre-analytical Considerations. [employer] Performed By: #### F T4, WSR, IGA ####[facility] [place], [place] [phone] Transglutaminase IgAon 10-27 Transglutaminase IgA 3 Units Normal <20 [facility] Comment on above: Result Comment: Nega tive : < 20 Units Weak Positive : 20 - 30 Units Moderate Pos to Strong Pos: >30 Units The following results were obtained with the [employer] QUANTA Lite h-tTG IgA MIKE. h-tTG IgA values obtained with different manufacturers' assay methods may not be used interchangeably. The magnitude of the reported IgA levels cannot be correlated to an endpoint titer. Performed By: #### A MYL, CRP, LIPA, VITD, ENDOMY, GLIIGA, TGIGA ####[facility] [place], [place] [phone] Vitamin D 25 Hydroxyon 10-27 Vitamin D 25 Hydroxy 15.8 ng/mL Low 31.0-80.0 [facility] Comment on above: Result Comment: Clas sification of 25 [place] Vitamin D status: Insufficiency/Moderate Deficiency: < or = 30 ng/mL Sufficiency/Optimal Levels: 31 to 80 ng/mL Toxicity: > 100 ng/mL Test performed by chemiluminescent immunoassay. Performed By: #### A MYL, CRP, LIPA, VITD, ENDOMY, GLIIGA, TGIGA #### [facility] [address] [place], [place] [address] Message - General Officeon 0 08-07-2018 [employer] General Office From: Alethea Chanel To: Alethea Chanel; Sent: 08/07/2018 10:45:02 EDT Subject: Patient left insurance cards Insurance cards were left in the office on visit 08/06/2018. Attempted to call both numbers listed on patients chart and couldnt get through nor leave a voicemail, mailed insurance card to patient. Pt dad called stating they revieved a voicemail. Contacted per at [phone] and advised of above. Normal [facility] Vital Signs Date Time Vital Sign Value Performing Clinician Facility 09-22-2024 11:06-0400 Body weight 110.28 kg [facility] Work Phone: [facility] 09-22-2024 11:06-0400 Diastolic blood pressure 76 mm[Hg] [facility] Work Phone: [facility] 09-22-2024 11:06-0400 Systolic blood pressure 108 mm[Hg] [facility] Work Phone: [facility] 09-15-2024 11:08-0400 Body weight 109.86 kg Mimi REES Work Phone: [facility] 09-15-2024 11:08-0400 Diastolic blood pressure 70 mm[Hg] Mimi REES Work Phone: [facility] 09-15-2024 11:08-0400 Systolic blood pressure 122 mm[Hg] Mimi REES Work Phone: [facility] 09-10-2024 14:23-0400 Body height 165.1 cm Lori Rao MD Work Phone: [facility] 09-10-2024 14:23-0400 Body mass index (BMI) [Ratio] 40.27 kg/m2 Lori Rao MD Work Phone: [facility] 09-10-2024 14:23-0400 Body temperature 98.29 [degF] Lori Rao MD Work Phone: [facility] 09-10-2024 14:23-0400 Body weight 109.77 kg Lori Rao MD Work Phone: [facility] 09-10-2024 14:23-0400 Diastolic blood pressure 67 mm[Hg] Lori Rao MD Work Phone: [facility] 09-10-2024 14:23-0400 Heart rate 112 /min Lori Rao MD Work Phone: [facility] 09-10-2024 14:23-0400 Systolic blood pressure 93 mm[Hg] Lori Rao MD Work Phone: [facility] 09-09-2024 13:27-0400 Body weight 109.32 kg Dwaine Peraza NP Work Phone: [facility] 09-09-2024 13:27-0400 Diastolic blood pressure 64 mm[Hg] Dwaine Peraza NP Work Phone: [facility] 09-09-2024 13:27-0400 Systolic blood pressure 106 mm[Hg] Dwaine Peraza NP Work Phone: [facility] 09-04-2024 12:24-0400 Diastolic blood pressure 65 mm[Hg] Jorge Tellez MD Work Phone: [facility] 09-04-2024 12:24-0400 Heart rate 69 /min Jorge Tellez MD Work Phone: [facility] 09-04-2024 12:24-0400 Systolic blood pressure 98 mm[Hg] Jorge Tellez MD Work Phone: [facility] 08-26-2024 11:43-0400 Body weight 107.62 kg Yony Brittany DO Work Phone: [facility] 08-26-2024 11:43-0400 Diastolic blood pressure 62 mm[Hg] Yony Brittany DO Work Phone: [facility] 08-26-2024 11:43-0400 Systolic blood pressure 102 mm[Hg] Yony Brittany DO Work Phone: [facility] 07-30-2024 10:32-0400 Body height 167.6 cm Elvis Maria MD Work Phone: [facility] 07-30-2024 10:32-0400 Body mass index (BMI) [Ratio] 37.93 kg/m2 Elvis Maria MD Work Phone: [facility] 07-30-2024 10:32-0400 Body weight 106.59 kg Elvis Maria MD Work Phone: [facility] 07-30-2024 10:32-0400 Diastolic blood pressure 73 mm[Hg] Elvis Maria MD Work Phone: [facility] 07-30-2024 10:32-0400 Heart rate 86 /min Elvis Maria MD Work Phone: [facility] 07-30-2024 10:32-0400 Systolic blood pressure 116 mm[Hg] Elvis Maria MD Work Phone: [facility] 07-09-2024 10:06-0400 Body weight 104.24 kg Mimi REES Work Phone: [facility] 07-09-2024 10:06-0400 Diastolic blood pressure 78 mm[Hg] Mimi REES Work Phone: [facility] 07-09-2024 10:06-0400 Systolic blood pressure 120 mm[Hg] Mimi REES Work Phone: [facility] 04-23-2024 10:17-0500 Body weight 99.7 kg Yony Brittany DO Work Phone: [facility] 04-23-2024 10:17-0500 Diastolic blood pressure 70 mm[Hg] Yony Brittany DO Work Phone: [facility] 04-23-2024 10:17-0500 Systolic blood pressure 120 mm[Hg] Yony Brittany DO Work Phone: [facility] 10-25-2022 10:17-0400 Body temperature 98.06 [degF] Jose Duran [facility] 10-25-2022 10:17-0400 Diastolic blood pressure 80 mm[Hg] Jose Duran [facility] 10-25-2022 10:17-0400 Heart rate 94 /min Jose Duran [facility] 10-25-2022 10:17-0400 Respiratory rate 18 /min Jose Duran [facility] 10-25-2022 10:17-0400 SaO2% (BldA) [Mass fraction] 99 % Jose Duran [facility] 10-25-2022 10:17-0400 Systolic blood pressure 124 mm[Hg] Jose Duran [facility] 12-07-2021 19:19-0400 Body temperature 98.24 [degF] Sdinn Dokken [facility] 12-07-2021 19:19-0400 Diastolic blood pressure 92 mm[Hg] Kaylinn Dokken [facility] 12-07-2021 19:19-0400 Heart rate 114 /min Sdinn Dokken [facility] 12-07-2021 19:19-0400 Respiratory rate 16 /min Lynetten Dokken [facility] 12-07-2021 19:19-0400 SaO2% (BldA) [Mass fraction] 98 % Sdinn Dokken [facility] 12-07-2021 19:19-0400 Systolic blood pressure 143 mm[Hg] Sdinn Dokken [facility] 12-06-2021 07:58-0400 Body temperature 98.06 [degF] Jose Roger [facility] 12-06-2021 07:58-0400 Diastolic blood pressure 80 mm[Hg] Jose Roger [facility] 12-06-2021 07:58-0400 Heart rate 86 /min Jose Roger [facility] 12-06-2021 07:58-0400 Respiratory rate 16 /min Jose Roger [facility] 12-06-2021 07:58-0400 SaO2% (BldA) [Mass fraction] 100 % Jose Roger [facility] 12-06-2021 07:58-0400 Systolic blood pressure 121 mm[Hg] Jose Duran [facility] Encounters Encounter Date Encounter Type Care Provider Facility Start: 09-22-2024 End: 09-22-2024 Bamboo flowsheet Yony Brittany DO Work Phone: [facility] Start: 09-22-2024 End: 09-22-2024 Bamboo flowsheet Yony Brittany DO Work Phone: [facility] Start: 09-22-2024 End: 09-22-2024 Clinisync Result Encounter Dwaine Peraza NP Work Phone: [facility] Unsolicited Start: 09-22-2024 End: 09-22-2024 Office outpatient visit 15 minutes Yony Brittany DO Work Phone: [facility] Comment on above: Third trimester preg [place]; 36 weeks gestation of ; care, first in third trimester Start: 09-15-2024 End: 09-15-2024 Bamboo flowsheet Mimi REES Work Phone: [facility] Start: 09-15-2024 End: 09-15-2024 Bamboo flowsheet Mimi REES Work Phone: [facility] Start: 09-15-2024 End: 09-15-2024 Clinisync Result Encounter Dwaine Peraza JEWEL STAKER Work Phone: [facility] Unsolicited Start: 09-15-2024 End: 09-15-2024 ambulatory MIMI LANZA Not Available Start: 09-15-2024 End: 09-15-2024 Office outpatient visit 15 minutes Mimi REES Work Phone: [facility] Comment on above: 35 weeks gestation o f ; Third trimester Start: 09-10-2024 End: 09-10-2024 ambulatory YONY R BRITTANY [facility] Start: 09-10-2024 End: 09-10-2024 Office consultation new/estab patient 60 min Lori Rao MD Work Phone: [facility] Comment on above: hydronephrosis during , antepartum, single or unspecified fetus (Primary Dx); Abnormal ultrasonic finding on screening of mother, antepartum Start: 09-10-2024 End: 09-10-[address] [facility] Start: 09-09-2024 End: 09-09-2024 Bamboo flowsheet Dwaine Peraza NP Work Phone: [facility] Start: 09-09-2024 End: 09-09-2024 Bamboo flowsheet Dwaine Peraza JEWEL STAKER Work Phone: [facility] Start: 09-09-2024 [...] Tellez MD Work Phone: [facility] Comment on above: hydronephrosis during , antepartum, single or unspecified fetus (Primary Dx) Start: 09-04-2024 End: 09-04-2024 [facility] Start: 09-04-2024 End: 09-04-2024 ambulatory YONY R [facility] Start: 08-26-2024 End: 08-26-2024 Bamboo [...] Telephone encounter Gabbi John RN Work Phone: [facility] Start: 08-05-2024 End: 08-05-2024 Telephone encounter Margarette Jessica RN [facility] Start: 07-30-2024 End: 07-30-2024 Office consultation new/estab patient 60 min Elvis Maria MD Work Phone: [facility] Comment on above: 29 weeks gestation o f (Primary Dx); Pyelectasis of fetus on ultrasound; hydronephrosis during , antepartum, single or unspecified fetus; Family history of congenital or genetic condition Start: 07-30-2024 End: 07-30-2024 ambulatory [facility] Jasbir RODRIGUEZENRIQUETA [facility] Start: 07-30-2024 End: 07-30-2024 ambulatory [facility] Start: 07-22-2024 End: 07-23-2024 Lab Drop off Lino Hamilton [facility] Start: 07-22-2024 End: 07-23-2024 ambulatory Lino Hamilton Facility:[facility] Start: 07-09-2024 End: 07-09-2024 Bamboo flowsheet Mimi REES Work Phone: [facility] Start: 07-09-2024 End: 07-09-2024 Bamboo flowsheet Mimi REES Work Phone: [facility] Start: 07-09-2024 End: 07-09-2024 Office outpatient visit 15 minutes Mimi REES Work Phone: [facility] Comment on above: 26 weeks [...] [facility] Unsolicited Start: 05-20-2024 End: 05-21-2024 External Result Encounter Mimi REES Work Phone: [facility] Unsolicited Start: 05-20-2024 End: 05-20-2024 ambulatory MIMI LANZA Not Available Start: 05-20-2024 End: 05-20-2024 Patient encounter procedure Mimi REES Work Phone: [facility] Start: 05-20-2024 End: 05-20-2024 Periodic preventive med est patient 18-39 yrs Mimi REES Work Phone: [facility] Comment on above: Well woman [...] 03-12-2024 End: 03-12-2024 flow sheet Sarah Mckeon JEWEL STAKER Work Phone: [facility] Comment on above: GA: 9w1d Start: 10-31-2022 End: 10-31-2022 Patient encounter procedure Ivelisse Leger [facility] Start: 10-25-2022 End: 10-25-2022 Emergency department patient visit Jose Duran [facility] Start: 12-07-2021 End: 12-07-2021 Emergency department patient visit Virginie Anthony [facility] Start: 12-06-2021 End: 12-06-2021 Emergency department patient visit Jose Duran [facility] Start: 05-08-2021 End: 08-06-2021 Patient encounter procedure Kwasi Pop III [facility] Start: 08-28-2018 Patient encounter procedure Maria Elena coughlin Facility:CD:[id number] Start: 08-06-2018 End: 08-07-2018 Patient encounter procedure Maria Eelna Lara Facility:CD: [id number] Procedures Date Procedure Procedure Detail Performing Clinician Start: 09-22-2024 OB BPP W NON-STRESS Dwaine Peraaz JEWEL STAKER Work Phone: Start: 09-22-2024 Urnls dip stick/tabl et rgnt non-auto w/o micrscp Yony Brittany DO Work Phone: Start: 09-15-2024 OB BPP W NON-STRESS Dwaine Karmen JEWEL STAKER Work Phone: Start: 09-15-2024 Urnls dip stick/tabl [...] Work Phone: Start: 04-13-2024 MLR HEMOGLOBIN A1C Santi y Brittany DO Work Phone: Start: 04-29-2003 bilateral tubes in ears Kwasi Pop III Plan of Treatment Date Care Activity Detail Author Start: 05-20-2027 Screening for malign ant neoplasm of cervix Pap Smear [facility] [employer] [facility] Start: 09-10-2025 Adult BMI Screening Adult BMI Screen ing [facility] [employer] [facility] Start: 09-10-2025 Tobacco Screening Tobacco Screening [facility] [employer] [facility] Start: 09-04-2025 Tobacco Screening Tobacco Screening [facility] Start: 07-30-2025 Adult BMI Screening Adult BMI Screen ing [facility] [employer] [facility] Start: 07-30-2025 Tobacco Screening Tobacco Screening [facility] [employer] Start: 07-30-2025 End: 07-30-2025 Unlisted Lab Test Unlisted Lab Test Lab Routine Pyelectasis of fetus on ultrasound Expected: 07/30/2025 (Approximate), Expires: 07/30/2025 [employer] Work Phone: Comment on above: Expected: 07/30/2025 (Approximate), Expires: 07/30/2025 Start: 07-30-2025 End: 07-30-2025 US MFM with or without consult US MFM with or without consult Imaging Routine Pyelectasis of fetus on ultrasound Expected: 07/30/2025 (Approximate), Expires: 07/30/2025 [facility] Comment on above: Expected: 07/30/2025 (Approximate), Expires: 07/30/2025 Start: 12-28-2024 Influenza vaccination [facility] Start: 11-02-2024 End: 11-02-2024 ambulatory 11/02/2024 1:30 PM EDT Visit [facility] [address] [place] [address] PoolMimi toure PA [address] [place] [address] [facility] Start: 10-05-2024 End: 10-05-2024 Patient encounter procedure 10/05/2024 3:15 PM EDT Appointment [facility] [address] [place] [phone] [facility] [place] Start: 09-22-2024 End: 09-22-2024 Patient encounter procedure 09/22/2024 10:30 AM EDT Routine [facility] [address] [place] [address] Yony Soto DO [address] [facility] [place] [address] [facility] Start: 09-15-2024 End: 09-15-2025 CULTURE, GROUP B STREP WITH SUSCEPTIBLITY CULTURE, GROUP B STREP WITH SUSCEPTIBLITY Lab Routine Third trimester Expected: 09/15/2024, Expires: 09/15/2025 [facility] Work Phone: Comment on above: Expected: 09/15/2024 , Expires: 09/15/2025 Start: 09-15-2024 End: 09-15-2024 Patient encounter procedure 09/15/2024 10:20 AM EDT Routine [facility] [address] [place] [phone] Mimi Lanza PA [address] [place] [address] [facility] Start: 09-11-2024 End: 09-11-2024 Patient encounter procedure 09/11/2024 8:00 AM EDT Office Visit [facility] [address] [place] [phone] Evelyn Fleming MD [address] [facility] [address] [place] [address] [facility] Start: 09-10-2024 End: 09-10-2024 Patient encounter procedure [facility] Start: 09-09-2024 End: 03-12-2025 [...] 2:00 PM EDT Telemedicine [facility] [address] [place] [address] Elvis Maria MD [address] [facility], [address] [place] [address] [facility] Start: 08-28-2024 End: 08-28-2024 Patient encounter procedure [facility] [place] Start: 08-10-2024 End: 08-10-2024 Patient encounter procedure 08/10/2024 10:10 AM EDT Routine [facility] [address] [place] [phone] Yony Soto DO [address] [place] [address] [facility] Start: 07-09-2024 End: 07-09-2025 [...] Expected: 07/09/2024 (Approximate), Expires: 07/09/2025 [facility] Comment on above: Expected: 07/09/2024 (Approximate), Expires: 07/09/2025 Start: 07-09-2024 End: 07-09-2024 Patient encounter procedure 07/09/2024 10:30 AM EDT Routine [facility] [address] [place] [phone] Mimi Lanza PA [address] [place] [address] Arrived [facility] Comment on above: Arrived Start: 06-18-2024 End: 06-18-2024 Patient encounter procedure 06/18/2024 1:30 PM EST Routine [facility] [address] [place] [address] Mimi Lanza PA [address] [place] [address] [facility] Start: 06-02-2024 End: 06-02-2024 Professional / ancillary services management 06/02/2024 2:30 PM EST Ancillary Procedure [facility] [address] [place] [address] [facility] Start: 05-20-2024 End: 07-18-2024 [...] AM EST Routine [facility] [address] [place] [phone] Mimi Lanza PA [address] [place] [address] [facility] Start: 04-23-2024 End: 05-24-2024 Alpha fetoprotein, maternal Alpha fetoprotein, maternal Lab Routine 15 weeks gestation of Expected: 04/23/2024 (Approximate), Expires: 05/24/2024 [facility] Work Phone: Comment on above: Expected: 04/23/2024 (Approximate), Expires: 05/24/2024 Start: 04-23-2024 End: 04-23-2024 Patient encounter procedure 04/23/2024 9:30 AM EST Routine [facility] [address] [place] [phone] Yony Soto DO [address] [facility] [place] [address] [facility] Start: 04-15-2024 End: 04-15-2024 Professional / ancillary services management 04/15/2024 11:00 AM EST Ancillary Procedure [facility] [address] [facility] [place] [phone] [facility] Start: 04-11-2024 End: 03-12-2025 [...] gestation of Expected: 04/11/2024 (Approximate), Expires: 03/12/2025 [facility] Comment on above: Expected: 04/11/2024 (Approximate), Expires: 03/12/2025 Start: 04-11-2024 End: 03-12-2025 Bacteria identified in Urine by Culture Urine culture Microbiology Routine Encounter for supervision of normal first in first trimester 9 weeks gestation of Expected: 04/11/2024 (Approximate), Expires: 03/12/2025 [facility] Comment on above: Expected: 04/11/2024 (Approximate), Expires: 03/12/2025 Start: 04-11-2024 End: 03-12-2025 CBC W Auto Differential panel - Blood CBC and differential Lab Routine Encounter for supervision of normal first in first trimester 9 weeks gestation of Expected: 04/11/2024 (Approximate), Expires: 03/12/2025 [facility] Comment on above: Expected: 04/11/2024 (Approximate), Expires: 03/12/2025 Start: 04-11-2024 End: 03-12-2025 Drugs of abuse panel - Urine by Screen method Rapid drug screen, urine Lab Routine Encounter for supervision of normal first in first trimester 9 weeks gestation of Expected: 04/11/2024 (Approximate), Expires: 03/12/2025 [facility] Comment on above: Expected: 04/11/2024 (Approximate), Expires: 03/12/2025 Start: 04-11-2024 End: 03-12-2025 Hemoglobin A1c/Hemoglobin.total in Blood Hemoglobin A1c Lab Routine Encounter for supervision of normal first in first trimester 9 weeks gestation of Expected: 04/11/2024 (Approximate), Expires: 03/12/2025 [facility] Comment on above: Expected: 04/11/2024 (Approximate), Expires: 03/12/2025 Start: 04-11-2024 End: 03-12-2025 Hepatitis B virus surface Ag [Presence] in Serum or Plasma by Immunoassay Hepatitis B surface Ag Lab Routine Encounter for supervision of normal first in first trimester 9 weeks gestation of Expected: 04/11/2024 (Approximate), Expires: 03/12/2025 [facility] Comment on above: Expected: 04/11/2024 (Approximate), Expires: 03/12/2025 Start: 04-11-2024 End: 03-12-2025 HIV-1/HIV-2 antigen/antibody combination immunoassay HIV-1 and HIV-2 antibodies Lab Routine Encounter for supervision of normal first in first trimester 9 weeks gestation of Expected: 04/11/2024 (Approximate), Expires: 03/12/2025 [facility] Comment on above: Expected: 04/11/2024 (Approximate), Expires: 03/12/2025 Start: 04-11-2024 End: 03-12-2025 Reagin Ab [Presence] in Serum by RPR RPR Lab Routine Encounter for supervision of normal first in first trimester 9 weeks gestation of Expected: 04/11/2024 (Approximate), Expires: 03/12/2025 [facility] Comment on above: Expected: 04/11/2024 (Approximate), Expires: 03/12/2025 Start: 04-11-2024 End: 03-12-2025 Rubella IgG Rubella IgG Lab Routine Encounter for supervision of normal first in first trimester 9 weeks gestation of Expected: 04/11/2024 (Approximate), Expires: 03/12/2025 [facility] Comment on above: Expected: 04/11/2024 (Approximate), Expires: 03/12/2025 Start: 04-02-2024 End: 04-02-2024 ambulatory 04/02/2024 1:40 PM EST Initial [facility] [address] [address] Sarah Mckeon NP [address] [place] [address] [facility] Start: 03-23-2024 End: 03-23-2024 Professional / ancillary services management 03/23/2024 4:00 PM EST Ancillary Procedure [facility] [address] ANGELITO D [address] [address] [facility] Start: 2021 DTaP,Tdap and Td Vaccines (2 - Tdap) DTaP,Tdap and Td Vaccines (2 - Tdap) [facility] [employer] [facility] Start: 01-15-2020 Adult BMI Follow Up Plan Adult BMI Follow Up Plan [facility] [employer] [facility] Start: 01-15-2020 Adult BMI Screening Adult BMI Screen ing [facility] Start: 2014 Depression Screening Depression Scre ening [facility] Cytology Cervical or vaginal smear or scraping study Pap Smear Pathology and Cytology Routine Well woman exam with routine gynecological exam [facility]: [facility]: Comment on above: Ordered: 05/20/2024 Hemoglobin A1c/Hemoglobin.total in Blood Hemoglobin A1c Lab Routine with normal glucose tolerance test (GTT) Ordered: 09/09/2024 [employer] Work Phone: Comment on above: Ordered: 09/09/2024 Immunizations Immunization Date Immunization Notes Care Provider Raffy bone 04-17-2021 meningococcal B vaccine, fully recombinant Jose Roger [facility] 02-24-2021 meningococcal ACWY vaccine, unspecified formulation Jose Roger [facility] Comment on above: Result Comment: 2021: VFC STOCK USED 02-24-2021 meningococcal B vaccine, fully recombinant Jose Roger [facility] Comment on above: Result Comment: 2021: VFC STOCK BORROWED 11-12-2016 hepatitis A vaccine, adult dosage Kwasi Pop III [facility] 11-12-2016 HPV, unspecified formulation Kwasi Pop III [facility] 12-16-2015 hepatitis A vaccine, adult dosage Kwasi Pop III [facility] 12-16-2015 HPV, unspecified formulation Kwasi Pop III [facility] 12-16-2015 meningococcal ACWY vaccine, unspecified formulation Kwasi Pop III [facility] 12-16-2015 tetanus and diphther ia toxoids, adsorbed, preservative free, for adult use (2 Lf of tetanus toxoid and 2 Lf of diphtheria toxoid) Kwasi Pop III [facility] 12-31-2006 diphtheria, tetanus toxoids and acellular pertussis vaccine Jose Duran [facility] 12-31-2006 measles, mumps and rubella virus vaccine Kwasi Pop III [facility] 12-31-2006 poliovirus vaccine, unspecified formulation Kwasi Pop III [facility] 12-31-2006 tetanus toxoid, reduced diphtheria toxoid, and acellular pertussis vaccine, adsorbed Kwasi Pop III [facility] 01-17-2004 influenza virus vaccine, unspecified formulation Jose Duran [facility] 01-17-2004 pneumococcal conjuga te vaccine, 13 valent Kwasi Pop III [facility] 08-18-2003 DTaP, unspecified formulation Jose Duran [facility] 08-18-2003 haemophilus influenz ae type b vaccine, HbOC conjugate Kwasi Pop III [facility] 04-27-2003 DTaP, unspecified formulation Jose Duran [facility] 04-27-2003 haemophilus influenz ae type b vaccine, HbOC conjugate Kwasi Pop III [facility] 04-27-2003 hepatitis B vaccine, adult dosage Kwasi Pop III [facility] 04-27-2003 influenza virus vaccine, unspecified formulation Jose Duran [facility] 04-27-2003 pneumococcal conjuga te vaccine, 13 valent Kwasi Pop III [facility] 04-27-2003 poliovirus vaccine, unspecified formulation Kwasi Pop III [facility] 04-27-2003 tetanus toxoid, reduced diphtheria toxoid, and acellular pertussis vaccine, adsorbed Kwasi Pop III [facility] 01-29-2003 DTaP, unspecified formulation Jose Roger [facility] 01-29-2003 haemophilus influenz ae type b vaccine, HbOC conjugate Kwasi Pop III [facility] 01-29-2003 hepatitis B vaccine, adult dosage Kwasi Pop III [facility] 01-29-2003 measles, mumps and rubella virus vaccine Kwasi Pop III [facility] 01-29-2003 poliovirus vaccine, unspecified formulation Kwasi Pop III [facility] 01-29-2003 tetanus toxoid, reduced diphtheria toxoid, and acellular pertussis vaccine, adsorbed Kwasi Pop III [facility] 01-29-2003 varicella virus vaccine Kwasi Pop III [facility] 2002 DTaP, unspecified formulation Jose Duran [facility] 2002 haemophilus influenz ae type b vaccine, HbOC conjugate Kwasi Pop III [facility] 2002 hepatitis B vaccine, adult dosage Kwasi Pop III [facility] 2002 pneumococcal conjuga te vaccine, 13 valent Kwasi Pop III [facility] 2002 poliovirus vaccine, unspecified formulation Kwasi Pop III [facility] 2002 tetanus toxoid, reduced diphtheria toxoid, and acellular pertussis vaccine, adsorbed Kwasi Pop III [facility] 2002 hepatitis B vaccine, adult dosage Kwasi Pop III [facility] NEGATED: Highlighted row has not occurred!08-28-2018 influenza virus vaccine, unspecified formulation Kwasi Pop III [facility] Payers Date Payer Category Payer Unknown [id number] 2024 Medicaid (Managed Care) [facility] MEDICAID [id number] 2024 Medicaid HMO [id number] 2024 Medicaid [id number] 2024 Unknown [id number] 2022 Unknown [id number] 2018 Unknown [id number] 2002 Unknown [id number] 2.16.840.1.916007.3.579.2. 727 2002 Unknown [id number] 2.16.840.1.687668.3.579.2. 727 2002 Unknown [id number] 2.16.840.1.882248.3.579.2. 128 2002 Unknown [id number] 2.16.840.1.426581.3.579.2. 128 2002 Unknown [id number] 2.16.840.1.877509.3.579.2. 1285 2002 Unknown [id number] 2.16.840.1.275900.3.579.2. 1285 2002 Unknown [id number] 2.16.840.1.113565.3.579.2. 1285 2002 Unknown [id number] 2.16.840.1.823731.3.579.2. 128 2002 Unknown [id number] 2.16.840.1.855511.3.579.2. 1258 2002 Unknown [id number] 2.16.840.1.127646.3.579.2. 1258 2002 Unknown [id number] 2.16.840.1.648091.3.579.2. 1258 2002 Unknown [id number] 2.16.840.1.410548.3.579.2. 1258 2002 Unknown [id number] 2.16.840.1.847596.3.579.2. 1258 2002 Unknown [id number] 2.16.840.1.379653.3.579.2. 1258 2002 Unknown [id number] 2.16.840.1.407677.3.579.2. 9 1978 Unknown [id number] 2.16.840.1.309601.3.579.2. 727 1978 Unknown [id number] 2.16.840.1.810424.3.579.2. 727 Social History Date Type Detail Facility Start: 06-15-2021 End: 03-12-2024 Tobacco smoking status Never smoked tobacco (finding) [facility] Comment on above: denies Denies Tobacco smoking status Never [facility] Comment on above: denies Denies Start: 03-12-2024 End: 07-30-2024 Sex Assigned At Female [facility] Start: 03-12-2024 End: 07-30-2024 Tobacco use and [...] on file N [facility] Sexual Orientation [facility] Start: 08-10-2009 End: 07-10-2024 [facility] (finding[facility] Start: 07-30-2024 End: 09-10-2024 Alcoholic beverage intake Lifetime non-drinker (finding) [facility] Functional Status Date Assessment Result Facility 10-25-2022 Functional Status N/A [facility] 12-07-2021 Functional Status N/A [facility] 12-06-2021 Functional Status N/A [facility] Clinical Notes 07-05-2021 to 09-22-2024 Kaya Hernandez LPN - 09/22/2024 10:30 AM CABRERA Soler - 09/15/2024 10:20 AM Blake Rao MD - 09/10/2024 2:30 PM EDTFrieda aSnders CMA - 09/10/2024 2:30 PM EDTPatient Instructions Note Date & Type Note Facility 09-22-2024 History of Presen t illness Narrative Reason [...] nursing note reviewed. Exam conducted with a project construction assistant manager present. Vitals: Estimated body mass index is [...] Yony Soto DO documented in this encounter [facility] 09-15-2024 History of Presen t illness Narrative [...] of: CABRERA Pérez documented in this encounter [facility] 09-10-2024 History of Presen t illness Narrative Referring Physician: Elvis Maria Md [address] [facility], [address] [place] [id number] [facility] April Puente is a 24 y.o. female that was referred to the pediatric urology clinic for hydronephrosis discovered on ultrasounds. The condition was first noted to be present on ultrasound performed at 28 weeks gestation due to an [facility] referral for cardiac concerns (OB [...] Ms. Puente is planning to deliver at [facility]. At this time I would recommend [...] patient/family/caregiver Referring and communicating with other health home care rn (not separately reported) Documenting clinical information in [...] no records available documented in this encounter [facility] 09-10-2024 Instructions Lori Rao MD - 09/10/2024 [...] we will need to be performed at [facility]. I would also recommend that your [...] has been delivered. documented in this encounter [email or web address] 09-09-2024 History of Presen t illness Narrative [...] nursing note reviewed. Exam conducted with a project construction assistant manager present. Vitals: Estimated body mass index is [...] Dwaine Peraza NP documented in this encounter [facility] 09-04-2024 History of Presen t [...] in 2 weeks for rhythm check at [facility] office. 2. Growth ultrasounds in 4 weeks at [facility] office 3. Continue testing at [...] for allowing me to participate in April Puente care. If there are any questions, please do not hesitate to call me. Sincerely, JORGE TELLEZ MD Video Visit via Real-time Synchronous Audiovisual Provider Location: [facility]- MEDICINE AT [address] [address] Patient Location: Other [facility] office [place]. Patient Location Pants Cutter: None Video Visit Consent Statement: I discussed [...] that there are some limitations compared to ztin-uh-kdlj evaluations. We elected to proceed. documented in this encounter [facility] 08-26-2024 History of Presen t illness Narrative [...] nursing note reviewed. Exam conducted with a project construction assistant manager present. Vitals: Estimated body mass index is [...] Yony Soto DO documented in this encounter [facility] 08-17-2024 Miscellaneous Notes LVM to call office to schedule from referral. CLS documented in this encounter [facility] 08-17-2024 Telephone encounter Note LVM to call office to schedule from referral. CLS [facility] Work Phone: 08-05-2024 Miscellaneous Notes LVM with genetic testing results. Results came back low risk. Left callback number. documented in this encounter [facility] 08-05-2024 Telephone encounter Note LVM with genetic testing results. Results came back low risk. Left callback number. [facility] 07-30-2024 History of Presen t illness Narrative Video Visit via Real-time Synchronous Audiovisual Provider Location: [facility]- MEDICINE AT [address] [id number] Patient Location: [facility] office Patient Location Pants Cutter: None Video Visit Consent Statement: I discussed [...] that there are some limitations compared to bzkh-tn-qbmw evaluations. We elected to proceed. [facility] Maternal- Medicine Consult Note Reason For Consult: [...] Resource Strain: Low Risk (03/12/2024) Received from [facility] Overall Financial Resource Strain (CARDIA) Difficulty of Paying Living Expenses: Not hard at all Food Insecurity: No Food Insecurity (07/30/2024) Hunger Screening Food Insecurity - Worry: Never True Food Insecurity - Inability: Never True Transportation Needs: No Transportation Needs (03/12/2024) Received from [facility] PRAPARE - Transportation Lack of Transportation (Medical): No Lack of Transportation (Non-Medical): No Physical Activity: Sufficiently Active (03/12/2024) Received from [facility] Exercise Vital Sign Days of Exercise per Week: 4 days Minutes of Exercise per Session: 60 min Stress: No Stress Concern Present (03/12/2024) Received from [facility] [employer] - Occupational Stress Questionnaire Feeling of Stress : Only a little Social Connections: Moderately Integrated (03/12/2024) Received from [facility] Social Connection and Isolation Panel [NHANES] Frequency of Communication with Friends and Family: More than three times a week Frequency of Social Gatherings with Friends and Family: More than three times a week Attends Church Services: More than 4 times per year Active Member of Clubs or Organizations: No Attends Club or Organization Meetings: Never Marital Status: Living with partner Interpersonal Safety: Not At Risk (03/12/2024) Received from [facility] Humiliation, Afraid, Rape, and Kick questionnaire Fear of Current or Ex-Partner: No Emotionally Abused: No Physically Abused: No Sexually Abused: No Housing Instability: Low Risk (03/12/2024) Received from [facility] Housing Stability Vital Sign Unable [...] - Unlisted Lab Test; Future - US [facility] with or without consult; Future 3. hydronephrosis [...] children are at risk for surgical interventions, fci renal dysfunction, hypertension and urinary tract infections. [...] the kidneys Growth ultrasounds q.4 weeks through [facility] Weekly NST and DVP starting [...] Elvis Maria MD, FACOG (she/hers) Maternal- Medicine [facility] [address] [facility] 1st [place] [address] This document was created with [employer] technology. Though I make every effort to review the dictation as it is transcribed, on occasion the spoken word can be misinterpreted by the technology leading to inappropriate words, phrases, or sentences. This note is addressed to the requesting provider as a consultation for clinical guidance. Specific medical abbreviations are occasionally used and those are generally approved by the [place]?Board of?Obstetrics and?Gynecology?as well as?Ashley tijerina abbreviations. The above plan of care was based solely on the diagnoses for which a consultation was requested. ?More frequent testing may be indicated based on her other medical/obstetrical conditions. The management of other or medical conditions is beyond the scope of requested consultation and will continue to be followed by the primary technologist infectious disease or primary care provider. Note to patient: [...] no Have you been seen here at [facility] in a previous ? N/a Recent ER visits or hospitalizations? no Bring blood sugar log or meter with you today? (Please bring them with you for every visit at [facility]) n/a Flu vaccine (Feb-June)? N/a Any concerns that you would like me to mention to the provider today? no documented in this encounter [facility] [employer] 07-22-2024 Note Patient Education Infectious Disease Upper [...] to help relieve symptoms, such as: ??? Myfl-qzc-umsueiw cold medicines. ??? Cough suppressants. Coughing is [...] other clear broths. General instructions ??? Take xarn-tvg-lvtvchl and prescription medicines only as told by [...] and water are not available, use hand channel man. ??? Avoid touching your mouth, face, eyes, [...] stiff neck. ? (more content not included)... [facility] 07-09-2024 History of Presen t illness Narrative [...] week for routine OB appointment. Documented by CBARERA Pérez on behalf of: CABRERA Pérez documented in this encounter [facility] 05-20-2024 History of Presen t [...] nursing note reviewed. Exam conducted with a project construction assistant manager present. Vitals: Estimated body mass index is [...] of: CABRERA Pérez documented in this encounter [facility] 04-23-2024 History of Presen t [...] nursing note reviewed. Exam conducted with a project construction assistant manager present. Vitals: Estimated body mass index is [...] and [facility] Patient has been consulted regarding any further do's and don'ts of . Patient voiced understanding and all questions and concerns were answered. Orders Placed This Encounter Procedures Alpha fetoprotein, maternal POCT urinalysis dipstick manually resulted Follow Up: Patient is to return in 4 weeks for routine OB appointment. Documented by Kaya Hernandez LPN on behalf of: Yony Soto DO documented in this encounter [facility] 03-12-2024 History of Presen t [...] will give to patient at dating , [facility]/Dr. Bucio Daily vitamins OTC [employer]Made PNV w/DHA & folic acid First trimester screening and second trimester screening discussed. Wants Genetic and Chromosomal Testing documented in this encounter [facility] 10-31-2022 Evaluation + Plan note Diagnostic Tests PendingFSH and LH 10/31/22Insulin Level Total 10/31/22Testosterone Level Total 10/31/22DHEAS 10/31/22 [facility] 10-25-2022 Evaluation + Plan note Extrac nohelia from: Title:ED Note Author:Carlos Han PA-C te:10/25/22 Hand contusion (S60.229A: Co ntusion of unspecified hand, initial encounter) Orders: XR Hand 3+ Views Right Future Appointments Appointment Date:10/31/2022 09:00:00 AM Scheduled Provider: Location:.[facility] Appointment Type:US Abdominal/Pelvis (FT) Future Scheduled Tests Radiology* US Pelvis Non-OB Complete 10/31/22 [facility]06-29-2023 Hospital Discharge instructions Patient Education [...] An elastic wrap to support your hand. Nlwq-dnn-kfwvwgc medicines to control pain. Follow these instructions [...] sitting or lying down. General instructions Take yokl-sga-goilhpe and prescription medicines only as told by [...] provider. Document Revised: 08/03/2021 Document Reviewed: 08/03/2021 [employer] Patient Education 2022 [employer]. Follow Up Care 10/25/2022 10:12:59 With:Kathy Kraus Address: [address] [place] [address] [phone] Business (1) When:10/28/2022 11:08:00 [facility]08-11-2022 Hospital Discharge instructions Patient Education 12/07/2021 19:56:20 Cellulitis, Adult, Ufwx-zr-Jesr Cellulitis, Adult Cellulitis is a skin infection. [...] Follow these instructions at home: Medicines Take wbuw-btq-opmanuc and prescription medicines only as told by [...] 10/01/2008 Document Revised: 09/04/2018 Document Reviewed: 09/04/2018 [employer] Patient Education 2020 [employer]. Follow Up Care 12/07/2021 19:18:58 With:Kathy Kraus Address: [address] [place] [address] [phone] Business (1) When:12/10/2021 19:43:43 Comments:Take the antibiotics as prescribed you have completed the course. Please follow-up with your primary care doctor next 2 to 3 days. You can take the naproxen every 12 hours as needed for pain you can also take the Jackson every 6 hours as needed for pain. Please return the ED for any new or worsening s ymptoms. [facility]08-11-2022 Evaluation + Plan noteExtracted from: [...] Metabolic Panel 06/15/21 * Mononucleosis Screen 04/13/21 [facility]08-10-2022 Evaluation + Plan noteExtracted from: [...] Metabolic Panel 06/15/21 * Mononucleosis Screen 04/13/21 [facility]08-10-2022 Hospital Discharge instructions Patient Education [...] antibiotic even if your condition improves. Take dlwk-yob-lzsfnfv and prescription medicines only as told by [...] 04/15/2006 Document Revised: 09/19/2018 Document Reviewed: 09/19/2018 [employer] Patient Education 2020 [employer]. Follow Up Care 12/06/2021 07:57:14 With:Kathy Kraus Address: [facility] [address] [place] [address] [phone] Business (1) When:12/09/2021 08:05:03 [facility]03-09-2022 Evaluation + Plan note Future [...] Metabolic Panel 06/15/21 * Mononucleosis Screen [facility]/13/21 [facility] Diagnosis Encounter for supervision [...] for diabetes mellitus documented in this encounter [facility]* Diagnosis 29 weeks gestation of - Primary Pyelectasis of fetus on ultrasound hydronephrosis during , antepartum, single or unspecified fetus Family history of congenital or genetic condition [facility] Diagnosis Third trimester state, incidental 33 weeks gestation of documented in this encounter [facility]* Diagnosis hydronephrosis during , antepartum, single or unspecified fetus- Primary [facility]* Diagnosis Third trimester state, incidental 35 weeks gestation of with normal glucose tolerance test (GTT) supraventricular tachycardia documented in this encounter [facility]* Diagnosis hydronephrosis during , antepartum, single or unspecified fetus- Primary Abnormal ultrasonic finding on screening of mother, antepartum [facility] Diagnosis 35 weeks gestation of Third trimester state, incidental documented in this encounter [facility]* Diagnosis Third trimester state, incidental 36 weeks gestation of care, first in third trimester documented in this encounter [facility] HealthcareHospital course Narrative No data available for this section [facility] No data available for this section [facility]* Attachments The following attachments cannot be sent through Care Everywhere. * Preeclampsia (Zambian) [facility] System[facility]ructionsNot on file documented in this encounterOhioHealth SystemInstructionsNot on file documented in this encounterOhioHealth SystemProgress note No data available for this section [facility] Summary Purpose Family History No [...] content) DATE CREATED AUTHOR 08/08/2018 [place] [facility] DATE CREATED AUTHOR AUTHOR'S ORGANIZ ATION 02/10/2019 [facility] DATE CREATED AUTHOR AUTHOR'S ORGANIZ ATION 07/23/2024 [facility] DATE CREATED AUTHOR AUTHOR'S ORGANIZ ATION 07/25/2024 [facility] DATE CREATED AUTHOR AUTHOR'S ORGANIZ ATION 08/02/2024 [facility] DATE CREATED AUTHOR AUTHOR'S ORGANIZ ATION 09/12/2024 [facility] DATE CREATED AUTHOR AUTHOR'S ORGANIZ ATION 09/12/2024 [facility] DATE CREATED AUTHOR AUTHOR'S ORGANIZ ATION 09/16/2024 [facility] EPIC Care Team (unrecognized sect ion and content) Personnel Name: Kathy Kraus NP Address: [address] [place], [place] [id number] Personnel Name: Kathy Kraus NP Address: [address] [place] [address] Personnel Name: Kathy Kraus NP Address: Address: [address] [place] [address] Personnel Name: Kathy Kraus NP Address: Address: [address] [place] [address] Personnel Name: KATHY KRAUS NP Address: [address] [place] [address] Telecom: Reason for Visit (unrecogniz ed section and content) Reason Comments Routine Visit Reason Comments add on pyelectasis, hydronephrosis right kidney Reason Comments add on polyhydramnios add on PACs Reason Comments New Patient Specialty Diagnoses / Procedures Referred By Contac t Referred To Contact Pediatric Urology Diagnoses Abnormal ultrasonic finding on screening of mother, antepartum Elvis Maria MD [address] [address] Phone: tel: fax: Lori Rao MD [address] [place] [address] Phone: tel: fax:[phone] Referral ID Status Reason Start Date Expiration Date Visits Requested Visits Authorized [id number] Pending Review Specialty Services Required 08/13/2024 08/13/2025 [...] BE BASED ON THE PRIMARY CLINICAL RECORDS. [facility] [email or web address] provides no warranty or guarantee of the accuracy or completeness of information in this document.
--- OUTSIDE RECORDS SUMMARY | 2024-09-23 06:12 | XMS_ITS | Clinical Summary ---
Author Organization [facility] Address [address] [place] [address] Care Team Providers Care Production Team Member Name Role Phone Unavailable Primary Care Provider Unavailabl e Allergies No known active allergies Medications GENERIC EXTERNAL MEDICATION Take 1 tablet by mouth Daily Active MV-Min-Fe Fum-FA-DHA ( 1 PO) Take 1 tablet by mouth Daily 07/22/2024 Active Active Problems Problem Noted Date Diagnosed Date Third trimester 09/22/2024 36 weeks gestation of 09/22/2024 Estimated Date of Delivery Comme nts Yes 10/14/2024 Based on last me nstrual period of 01/08/2024 Encounters Date Type Department Care Team Description 09/22/2024 10:30 AM EDT Routine [facility] [address] [place] [address] oYny Soto, Third trimester ; 36 weeks gestation of ; care, first in third trimester 09/22/2024 Clinisync Result Encounter [facility] External Department Unsolicited Negrita Peraza NP 09/22/2024 Abstract [facility] [address] [place] [address] Yony Soto, 09/22/2024 Bamboo flowsheet [facility] [address] [place] [address] Yony Soto, 09/16/2024 Abstract [facility] [address] [place] [address] Yony Soto, DO 09/15/2024 10:20 AM EDT Routine [facility] [address] [place] [address] Mimi Lanza PA 35 weeks gestation of ; Third trimester 09/15/2024 Clinisync Result Encounter [facility] External Department Unsolicited Negrita Peraza, SHARMILA 09/15/2024 Bamboo flowsheet [facility] [address] [place] [address] Mimi Lanza PA 09/11/2024 Abstract [facility] [address] [place] [address] Paula Muñiz LPN 09/09/2024 1:00 PM EDT Routine [facility] [address] [place] [address] Negrita Peraza, SHARMILA Third trimester ; 35 weeks gestation of ; with normal glucose tolerance test (GTT); supraventricular tachycardia 09/09/2024 Bamboo flowsheet [facility] [address] [place] [address] Negrita Peraza NP 09/08/2024 Abstract [facility] [address] [place] [address] Brigette Pennington MA 08/28/2024 Telephone [facility] [address] [place] [address] Yony Soto, 08/28/2024 Abstract [facility] OB [address] [place] [address] Yony Soto, 08/26/2024 11:30 AM EDT Routine [facility] OB [address] [place] [address] Yony Soto, DO Third trimester ; 33 weeks gestation of 08/26/2024 Bamboo flowsheet [facility] [address] [place] [address] Yony Soto, DO 08/21/2024 Abstract [facility] OB [address] [place] [address] Yony Soto, DO 07/30/2024 Abstract [facility] OB [address] [place] [address] Yony Soto, DO 07/09/2024 10:30 AM EDT Routine [facility] [address] [place] [address] [place] [address] Mimi Lanza PA 26 weeks gestation of ; Second trimester ; Diabetes mellitus screening 07/09/2024 Abstract [facility] OB [address] [place] [address] Yony Soto, DO 07/09/2024 Bamboo flowsheet [facility] OB [address] [place] [address] Mimi Lanza PA 06/29/2024 2:30 PM EST Ancillary Procedure [facility] OB [address] [place] [address] Screening, , for anatomic survey from Last 3 Months Family History Relation Name Status Comments Father Alive Mother Alive Social History Tobacco Use Types Packs/Day Years Used Date Smoking Tobacco: Never Smokeless Tobacco: Never Tobacco Cessation:Counseling Given: No Alcohol Use Standard Drinks/Week Comments Not Currently [...] How often do you attend chur or yazdanism services? 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 on file Not on fi le Not on file Last Filed Vital Signs Vital Sign Reading Time Taken Comments Blood Pressure 108/76 09/22/2024 11:06 AM EDT Pulse - - Temperature - - Respiratory Rate - - Oxygen Saturation - - Inhaled Oxygen Concentration - - Weight 110 kg (243 lb 1.9 oz) 09/22/2024 11:06 A M EDT Height 167.6 cm (5' 6 ) 08/22/2018 12:00 PM EDT Body Mass Index - - Plan of Treatment Upcoming Encounters Date Type Department Care Team (Late st Contact Info) Description 11/02/2024 1:30 PM EDT Visit [facility] OB [address] [place] [address] Mimi Lanza PA [address] [place] [address] Health Maintenance Due Date Last Done Comments Influenza Vaccine (Season Ended) 2024 01/17/20 04, 04/27/2003 Procedures Procedure Name Priority Date/Time Associated Diagnosis Comments US OB BPP W NON-STRESS 09/22/2024 1:55 PM EDT POCT URINALYSIS DIPSTICK Routine 09/22/2024 11:02 AM EDT Third trimester 36 weeks gestation of US OB BPP W NON-STRESS 09/15/2024 1:19 PM EDT POCT URINALYSIS DIPSTICK Routine 09/15/2024 11:20 AM EDT 35 weeks gestation of Third trimester POCT URINALYSIS DIPSTICK Routine 08/26/2024 11:49 AM EDT Third trimester POCT URINALYSIS DIPSTICK Routine 07/09/2024 10:25 AM EDT 26 weeks gestation of Second trimester US OB 14+ WEEKS ANATOMY SCAN Routine 06/29/2024 3:24 PM EST Screening, , for anatomic survey from Last 3 Months Results * US OB BPP W NON-STRESS (09/22/2024 1:55 PM EDT) Only the most recent of2 resultswithin the time period is included. Anatomical Region Laterality Modality Other 09/22/2024 1:55 PM EDT Narrative 09/22/2024 1:58 PM EDT The [address] [address] Ultrasound Report Signed Patient: APRIL PUENTE MR#: [id number] : 2000 Acct:[id number] Age/Sex: 24 / F ADM Date: 09/22/24 Loc: [facility] 250-[address]: Negrita Peraza Ordering Physician: Negrita Peraza Date of Service: 09/22/24 Procedure(s): US OB BPP w non-stress Accession Number(s): [id number] cc: Negrita Peraza; Physician,Non-Staff M.[place] The [place] [id number] Patient Name: APRIL PUENTE MRN: [id number] date: 2000 Sex: F Assigned Patient Location: [facility] Current Patient Location: [facility] Accession/Order Number: [id number] Exam Date: 09/22/2024 13:53 Report Date: 09/22/2024 13:55 At the request of: NEGRITA PERAZA Procedure: US OB BPP w non-stress [...] Hayden M.D. 09/22/2024 1:55 PM Dictation Location: [place] [address] Electronically authenticated by: [id number] Y Date: 09/22/2024 13:55 Dictated By: Michi Hayden D.O. Signed By: 09/22/24 1358 DD/ 54 TD/TT: Sap Project Manager: Procedure Note Radiology, Radiologist, - 09/22/2024 [place] [address] Ultrasound Report Signed Patient: APRIL PUENTEMR#: [id number] : 2000Acct:[id number] Age/Sex: 24 / FADM Date: 09/22/24 Loc: [facility] 250-[address]: Negrita Peraza Ordering Physician: Negrita Peraza Date of Service: 09/22/24 Procedure(s): US OB BPP w non-stress Accession Number(s): [id number] cc: Negrita Peraza; Physician,Non-Staff M.DMichael [place] [address] Patient Name: APRIL PUENTE MRN: [id number] date: 2000 Sex: F Assigned Patient Location: [facility] Current Patient Location: [facility] Accession/Order Number: [id number] Exam Date: 09/22/2024 13:53 Report Date: 09/22/2024 13:55 At the request of: NEGRITA PERAZA Procedure: US OB BPP w non-stress Ultrasound biophysical profile HISTORY: supraventricular tachycardia There is adequate breathing movement, gross body movement, fetaltone and amniotic fluid volume for total score of 8 out of 8. The amnioticfluid index is 13.9 cm within normal limits. The heart rate varies [id number]. Moderate right hydronephrosis present. US/US OB BPP w non-stress IMPRESSION: Adequate biophysical profile. Variable heart rate. Moderate right hydronephrosis. Impression dictated by: Michi Hayden M.D. 09/22/2024 1:55 PM Dictation Location: [place] [address] Electronically authenticated by: [id number] Y Date: 3:55 Dictated By: Michi Hayden D.O. Signed By:09/22/24 1358 DD/ 54 TD/TT: Sap Project Manager: Negrita Peraza LOGISTICS LEAD [facility] Final Resul t * POCT urinalysis dipstick manually resulted (09/22/2024 11:02 AM EDT) Only the most recent of4 resultswithin the time period is included. Color, UA Yellow Clarity, UA Clear Glucose, UA Negative Negative - 1999(110) ++++ mg/dL Bilirubin, UA Negative Negative - [...] Positive Urine 09/22/2024 11:0 2 AM EDT us Yony Brittany DO POINT OF CARE TEST ENTER/EDIT OR DERABLES Final Result * US OB 14+ weeks anatomy scan (06/29/2024 3:24 PM EST) Anatomical Region Laterality Modality Body Ultrasound 06/30/2024 9:26 AM EST Narrative 06/30/2024 9:26 AM EST EXAM: US OB 14+ WEEKS ANATOMY SCAN [...] II, MD, PHD at 30-Jun-2024 09:25:03 AM [facility] [place] [facility] Procedure Note Joey Willingham MD - 06/30/2024 EXAM: US OB 14+ WEEKS ANATOMY SCAN HISTORY: anatomy. TECHNIQUE: Two-dimensional transabdominal grayscale ultrasound imaging ofthe pelvis was performed. Exam limited by patient body habitus. FINDINGS: Gestation: Single Presentation: Cephalic Cardiac Activity: 154 beats per minute Placental Location: Posterior with no sonographic abnormalitiesidentified. Distance from Placental Tip to Cervix: 8.7 [...] is 24 weeks 5 days (+/- 7 daysgestation). Estimated Weight: 737 grams, +/- 111 grams [...] gestation 24 weeks, 5 days by LMP. Today'sultrasound measurements correlate with a gestational age of 24 weeks 5days. Estimated weight is 737 grams, +/- 111 grams ( 1 lb 10 oz)which correlates to 44 %. SAI is 10/14/2024. 2. Limited visualization of the four-chamber heart and outflow tracts. Ashort- term follow-up ultrasound is recommended. Electronically Signed:Electronically signed by JOEY WILLINGHAM II, MD, PHDat 30-Jun-2024 09:25:03 AM [facility] [place] [facility] [place] [facility] us Mimi REES IMG OB US PROCEDURES Final Resul t from Last 3 Months Insurance [employer]
--- OUTSIDE RECORDS SUMMARY | 2024-09-23 06:12 | XMS_ITS | Encounter Summary ---
Author Organization [facility] Address [address] [place] [address] Care Team Providers Care Insurance Rater Name Role Phone Unavailable Primary Care Provider Unavailabl e Encounter Details Date Type Department Care Team (Late st Contact Info) Description 09/09/2024 Bamboo flowsheet [facility] OB [address] [place] [address] Negrita Peraza, ENVIRONMENTAL WEB CRAWLER [address] [place] [address] Social History Tobacco Use Types Packs/Day Years [...] How often do you attend chur or yarsani services? More than 4 times per year 03/12/2024 Do you belong to any clubs o r organizations such as voodoo groups, unions, fraternal or athletic groups, or [...] Recorded Patient Health Questionnaire-2 Score 0 03/12/2024 [facility] of Occupat ional Health - Occupational Stress [...] any time in the past 12 m [facility], were you homeless or living in a usp (including now)? 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
--- OUTSIDE RECORDS SUMMARY | 2024-09-23 06:12 | XMS_ITS | Encounter Summary ---
Author Organization [facility] Address [address] [place] [address] Care Team Providers Care Foam Rubber Curer Name Role Phone Unavailable Primary Care Provider Unavailabl e Encounter Details Date Type Department Care Team (Late st Contact Info) Description 09/15/2024 Clinisync Result Encounter [facility] External Department Unsolicited Dwaine Peraza, SHARMILA [address] [place] [address] [place] [address] Social History Tobacco Use Types Packs/Day [...] How often do you attend chur or tenriism services? More than 4 times per year 03/12/2024 Do you belong to any clubs o r organizations such as congregational groups, unions, fraternal or athletic groups, or [...] Recorded Patient Health Questionnaire-2 Score 0 03/12/2024 [facility] of Occupat ional Health - [...] No 03/12/2024 Housing Stability Vital Sign Answer Desahun e Recorded In the last 12 months, was t here a time when you were not able to pay the mortgage or rent on time? No 03/12/2024 In the past 12 months, how m any times have you moved where you were living? 0 03/12/2024 At any time in the past 12 m [facility], were you homeless or living in a assisted (including now)? 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 [place] [address] Mimi Lanza PA [address] [place] [address] [place] [address] documented as of this encounter Procedures Procedure Name Priority Date/Time Associated Diagnosis Comments US OB BPP W NON-STRESS 09/15/2024 1:19 PM EDT documented in this encounter Results * US OB BPP W NON-STRESS (09/15/2024 1:19 PM EDT) Anatomical Region Laterality Modality Other 09/15/2024 1:19 PM EDT Narrative 09/15/2024 1:22 [place] [address] Ultrasound Report Signed Patient: APRIL PUENTE MR#: [id number] : 2000 Acct:[id number] Age/Sex: 24 / F ADM Date: 09/15/24 Loc: [facility] 250-[address]: Dwaine Peraza Ordering Physician: Dwaine Peraza Date of Service: 09/15/24 Procedure(s): US OB BPP w non-stress Accession Number(s): [id number] cc: Dwaine Peraza; Physician,Non-Staff M.[place] [id number] Patient Name: APRIL PUENTE MRN: [id number] date: 2000 Sex: F Assigned Patient Location: [facility] Current Patient Location: [facility] Accession/Order Number: [id number] Exam Date: 09/15/2024 13:12 Report Date: 09/15/2024 [...] Velasco M.D. 09/15/2024 1:19 PM Dictation Location: [place] [address] Electronically authenticated by: [id number] Y Date: 09/15/2024 13:19 Dictated By: Blair Velasco M.D. Signed By: 09/15/24 1322 DD/ 1319 TD/TT: Electron Gun Assembler: Procedure Note Radiology, Radiologist, MD - 09/15/2024 [place] [address] Ultrasound Report Signed Patient: APRIL PUENTEMR#: [id number] : 2000Acct:[id number] Age/Sex: 24 / FADM Date: 09/15/24 Loc: [facility] 250-[address]: Dwaine Peraza Ordering Physician: Dwaine Peraza Date of Service: 09/15/24 Procedure(s): US OB BPP w non-stress Accession Number(s): [id number] cc: Dwaine Peraza; Physician,Non-Staff MMalcolm The [place] [id number] Patient Name: APRIL PUENTE MRN: [id number] date: 2000 Sex: F Assigned Patient Location: [facility] Current Patient Location: [facility] Accession/Order Number: [id number] Exam Date: 09/15/2024 13:12 Report Date: 09/15/2024 [...] Velasco M.D. 09/15/2024 1:19 PM Dictation Location: [place] [address] Electronically authenticated by: [id number] Y Date: 3:19 Dictated By: Blair Velasco M.D. Signed By:09/15/24 1322 DD/ 1319 TD/TT: Electron Gun Assembler: us Dwaine Peraza NP [facility] Final Resul t documented in this encounter Visit Diagnoses Not on filedocumented in this encounter
--- OUTSIDE RECORDS SUMMARY | 2024-09-23 06:12 | XMS_ITS | Encounter Summary ---
Author Organization [facility] Address [address] [place] [address] Care Team Providers Care Director Of Outpatient Services Name Role Phone Unavailable Primary Care Provider Unavailabl e Encounter Details Date Type Department Care Team (Late st Contact Info) Description 09/22/2024 Clinisync Result Encounter [facility] External Department Unsolicited Dwaine Peraza, SHARMILA [address] [place] [address] [place] [address] Social History Tobacco Use Types [...] How often do you attend chur or scientology services? More than 4 times per year [...] Recorded Patient Health Questionnaire-2 Score 0 03/12/2024 [facility] of Occupat ional Health - Occupational Stress [...] any time in the past 12 m [facility], were you homeless or living in a fci (including now)? 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 Not on fi le Not on file documented as of this encounter Plan of Treatment Upcoming Encounters Date Type Department Care Team (Late st Contact Info) Description 11/02/2024 1:30 PM EDT Visit [facility] BCP OB [address] [facility] [place] [address] Mimi Lanza PA [address] [place] [address] [place] [address] documented as of this encounter Procedures Procedure Name Priority Date/Time Associated Diagnosis Comments US OB BPP W NON-STRESS 09/22/2024 1:55 PM EDT documented in this encounter Results * US OB BPP W NON-STRESS (09/22/2024 1:55 PM EDT) Anatomical Region Laterality Modality Other 09/22/2024 1:55 PM EDT Narrative 09/22/2024 1:58 PM EDT [address] [address] Ultrasound Report Signed Patient: APRIL PUENTE MR#: [id number] : 2000 Acct:[id number] Age/Sex: 24 / F ADM Date: 09/22/24 Loc: [facility] 250-[address]: Dwaine Peraza Ordering Physician: Dwaine Peraza Date of Service: 09/22/24 Procedure(s): US OB BPP w non-stress Accession Number(s): [id number] cc: Dwaine Peraza; Physician,Non-Staff M.DMichael [address] [address] Patient Name: APRIL PUENTE MRN: [id number] date: 2000 Sex: F Assigned Patient Location: [facility] Current Patient Location: [facility] Accession/Order Number: [id number] Exam Date: 09/22/2024 13:53 Report Date: 09/22/2024 [...] Hayden M.D. 09/22/2024 1:55 PM Dictation Location: [place] [address] Electronically authenticated by: [id number] Y Date: 09/22/2024 13:55 Dictated By: Michi Hayden D.O. Signed By: 09/22/24 1358 DD/ 135 TD/TT: Distribution Analyst: Procedure Note Radiology, Radiologist, MD - 09/22/[address] [address] Ultrasound Report Signed Patient: APRIL PUENTEMR#: [id number] : 2000Acct:[id number] Age/Sex: 24 / FADM Date: 09/22/24 Loc: [facility] 250-[address]: Dwaine Peraza Ordering Physician: Dwaine Peraza Date of Service: 09/22/24 Procedure(s): US OB BPP w non-stress Accession Number(s): [id number] cc: Dwaine Peraza; Physician,Non-Staff MMalcolm The [address] [address] Patient Name: APRIL PUENTE MRN: [id number] date: 2000 Sex: F Assigned Patient Location: [facility] Current Patient Location: [facility] Accession/Order Number: [id number] Exam Date: 09/22/2024 13:53 Report Date: 09/22/2024 13:55 At the request of: DWAINE PERAZA Procedure: US OB BPP w non-stress Ultrasound biophysical profile HISTORY: supraventricular tachycardia There is adequate breathing movement, gross body movement, fetaltone and amniotic fluid volume for total score of 8 out of 8. The amnioticfluid index is 13.9 cm within normal limits. The heart rate varies [id number]. Moderate right hydronephrosis present. US/US OB BPP w non-stress IMPRESSION: Adequate biophysical profile. Variable heart rate. Moderate right hydronephrosis. Impression dictated by: Michi Hayden M.D. 09/22/2024 1:55 PM Dictation Location: [place] [address] Electronically authenticated by: [id number] Y Date: 3:55 Dictated By: Michi Hayden D.O. Signed By:09/22/24 1358 DD/ 1355 TD/TT: Distribution Analyst: Dwaine Peraza NP [facility] Final Resul t documented in this encounter Visit Diagnoses Not on filedocumented in this encounter
--- OUTSIDE RECORDS SUMMARY | 2024-09-23 06:12 | XMS_ITS | Encounter Summary ---
Author Organization [facility] Address [address] [place] [address] Care Team Providers Care Multimedia Journalist Name Role Phone Unavailable Primary Care Provider Unavailabl e Encounter Details Date Type Department Care Team (Late st Contact Info) Description 09/22/2024 Bamboo flowsheet [facility] OB [address] [facility] [place] [address] Yony Soto, DO [address] [facility] [address] [place], [facility] Social History Tobacco Use Types Packs/Day Years [...] How often do you attend chur or mu-ism services? 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
--- OUTSIDE RECORDS SUMMARY | 2024-09-23 06:12 | XMS_ITS | Encounter Summary ---
Author Organization [facility] Address [address] [place] [address] Care Team Providers Care Shelf Stocker Name Role Phone Unavailable Primary Care Provider Unavailabl e Encounter Details Date Type Department Care Team (Late st Contact Info) Description 09/16/2024 Abstract [facility] OB [address] [place] [address] Yony Soto, DO [address] Hipolito Ramires, [facility]11 Social History Tobacco Use Types Packs/Day [...] How often do you attend chur or episcopalian services? More than 4 times per year 03/12/2024 Do you belong to any clubs o r organizations such as yazidism groups, unions, fraternal or athletic groups, or [...] Recorded Patient Health Questionnaire-2 Score 0 03/12/2024 [facility] of Occupat ional Health - Occupational Stress [...] any time in the past 12 m ont, were you homeless or living in a snf (including now)? 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
--- OUTSIDE RECORDS SUMMARY | 2024-09-23 06:12 | XMS_ITS | Encounter Summary ---
Author Organization [facility] Address [address] [place] [address] Care Team Providers Care Bar Manager Name Role Phone Unavailable Primary Care Provider Unavailabl e Encounter Details Date Type Department Care Team (Late st Contact Info) Description 09/11/2024 Abstract [facility] OB [address] [place] [address] Paula Muñiz LPN Social History Tobacco Use Types Packs/Day Years [...] 03/12/2024 How often do you attend chur ch or christian services? More than 4 times per year 03/12/2024 Do you belong to any clubs o r organizations such as hoahaoism groups, unions, fraternal or athletic groups, or [...] Recorded Patient Health Questionnaire-2 Score 0 03/12/2024 [facility] of Occupat ional Health - Occupational [...] any time in the past 12 m [facility], were you homeless or living in a senior care (including now)? 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
--- OUTSIDE RECORDS SUMMARY | 2024-09-23 06:12 | XMS_ITS | Encounter Summary ---
Author Organization [facility] Address [address] [place] [address] Care Team Providers Care Jig Builder Helper Name Role Phone Unavailable Primary Care Provider Unavailabl e Encounter Details Date Type Department Care Team (Late st Contact Info) Description 09/15/2024 Bamboo flowsheet [facility] [address] [place] [phone] Mimi Lanza PA [address] [place], [facility]11 Social History Tobacco Use Types Packs/Day [...] any clubs o r organizations such as tenriism groups, unions, fraternal or athletic groups, or [...] Recorded Patient Health Questionnaire-2 Score 0 03/12/2024 [facility] of Occupat ional Health - Occupational [...] were you homeless or living in a group home (including now)? 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
--- OUTSIDE RECORDS SUMMARY | 2024-09-23 06:12 | XMS_ITS | Encounter Summary ---
Author Organization [facility] Address [address] [place] [address] Care Team Providers Care Gyroscopic Instrument Tester Name Role Phone Unavailable Primary Care Provider Unavailabl e Encounter Details Date Type Department Care Team (Late st Contact Info) Description 09/08/2024 Abstract [facility] OB [address] [place] [place] [address] Brigette Pennington MA Social History Tobacco Use Types Packs/Day Years [...] often do you attend chur ch or islam services? 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
--- OUTSIDE RECORDS SUMMARY | 2024-09-23 06:13 | XMS_ITS | Encounter Summary ---
Author Organization [facility] Address [address] [place] [address] Care Team Providers Care Infrastructure Analyst Name Role Phone Unavailable Primary Care Provider Unavailabl e Encounter Details Date Type Department Care Team (Late st Contact Info) Description 08/21/2024 Abstract [facility] OB [address] [place] [address] Yony Soto, DO [address] Hipolito Ramires, [facility]11 Social History Tobacco Use Types Packs/Day [...] How often do you attend chur or episcopal services? More than 4 times per year 03/12/2024 Do you belong to any clubs o r organizations such as jewish groups, unions, fraternal or athletic groups, or [...] Recorded Patient Health Questionnaire-2 Score 0 03/12/2024 [facility] of Occupat ional Health - Occupational [...] were you homeless or living in a jail (including now)? 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
--- OUTSIDE RECORDS SUMMARY | 2024-09-23 06:13 | XMS_ITS | Encounter Summary ---
Author Organization [facility] Address [address] [place] [address] Care Team Providers Care V Groove Cutter Name Role Phone Unavailable Primary Care Provider Unavailabl e Encounter Details Date Type Department Care Team (Late st Contact Info) Description 05/20/2024 Abstract [facility] OB [address] [address] Ynoy Soto, DO [address] [facility] [address] [facility] [address] Hipolito Ramires, [facility]11 Social History Tobacco Use Types [...] How often do you attend chur or yazidi services? More than 4 times per year 03/12/2024 Do you belong to any clubs o r organizations such as mandaen groups, unions, fraternal or athletic groups, or [...] were you homeless or living in a longterm (including now)? 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
--- OUTSIDE RECORDS SUMMARY | 2024-09-23 06:13 | XMS_ITS | Clinical Summary ---
Author Organization [facility] tem Address [id number] [address] [place] [address] Care Team Providers Care Regional Ehs Manager Name Role Phone Unavailable Primary Care Provider Unavailabl e Allergies No known active allergies Medications no115/iron/folic acid ( 19 ORAL) Take 1 tablet by mouth in the morning. Active Active Problems Patient Care Coordination No te Formatting of this note migh t be different from the original. CARE COORDINATION DIAGNOSIS: Rt Sided Hydronephrosis Referring OB: Brittany MFM: Bárbara Maternal Hx: MSAFP: Normal cfDNA: Low risk XX 22q - Low risk Carrier: Amnio: []Genetic Counselling: []Peds Cardiology: [x]Peds Urology: 09/10/24 the possible etiologies for hydronephrosis in a [...] Ms. Cordova is planning to deliver at [facility]. At this time I would recommend [...] once the child is of reasonable age. []Peds Ortho: []Peds Surgery: []Peds Neurology: []Peds Neurosurgery: []Peds Craniofacial: []NICU Consult: []Palliative Care Consult: []SGM: []Life Connection: []Verner: [] MRI: []Nationwide: []UofM: []UH: []SUNDAY CHS: Delivery Recommendation: [] Term at local hospital [] Term at [facility] Surveillance Plan: [x] F/U Survey at _4_ weeks Sched 08/28/24 Dr Granger VV 08/31/24 [] Growth q __ weeks [] Dopplers q __ weeks [] Echo at __ weeks [] Cervical length q __ weeks [] TTTS q __ weeks [] Wkly NST/GILMA starting at __ weeks [] 2x/wk NST/GILMA starting at __ weeks Recommendations from Dr. Mcclendon faxed to Dr. Soto's office 09/14/24. KG Problem Noted Date Diagnosed Date Pyelectasis of fetus on ultrasound 06/2024 hydronephrosis in , antepartum co ndition 07/30/2024 Estimated Date of Delivery Comme nts Yes 10/14/2024 Based on last me nstrual period of 01/08/2024 Encounters Date Type Department Care Team Description 09/10/2024 3:27 PM EDT - 09/10/2024 11:59 PM EDT Hospital Encounter [facility] US Imaging [address] [place] [phone] Pyelectasis of fetus on ultrasound; Encounter for repeat ultrasound for heart rate Discharge Disposition: Home 09/10/2024 2:30 PM EDT Office Visit [facility] [address] [place] [phone] Lori Mcclendon MD hydronephrosis during , antepartum, single or unspecified fetus (Primary Dx); Abnormal ultrasonic finding on screening of mother, antepartum 09/10/2024 Travel 09/04/2024 12:30 PM EDT Telemedicine Maternal- Medicine at [facility] [address] [place] [address] Wilbur Tellez MD hydronephrosis during , antepartum, single or unspecified fetus (Primary Dx) 09/04/2024 Travel 08/28/2024 Travel 08/17/2024 Telephone [facility] [address] [place] [address] Gabbi John, RN 08/13/2024 Orders Only Maternal- Medicine at [place] [address] [place] [address] Kaya Murillo RDMS Abnormal ultrasonic finding on screening of mother, antepartum (Primary Dx) 08/05/2024 Orders Only Maternal- Medicine at [address] [address] Margarette Jessica, BINH Pyelectasis of fetus on ultrasound 08/05/2024 Telephone Maternal- Medicine at [place] [address] [facility] [place] [address] Margarette Jessica, BINH 07/30/2024 11:15 AM EDT Telemedicine Maternal- Medicine at [place] [address] [place] [address] Elvis Granger MD 29 weeks gestation of (Primary Dx); Pyelectasis of fetus on ultrasound; hydronephrosis during , antepartum, single or unspecified fetus; Family history of congenital or genetic condition 07/30/2024 Travel 07/27/2024 Orders Only Maternal- Medicine at [address] [address] Ref Prov, Not In System 07/27/2024 Abstract Maternal- Medicine at [address] [address] External, Scanning Provider from Last 3 Months Social History Tobacco Use Types Packs/Day Years [...] on file Sexual Orientation Not on file Last Filed Vital Signs [...] Mass Index 40.27 09/10/2024 2:23 PM EDT Plan of Treatment Upcoming Encounters Date Type Department Care Team (Late st Contact Info) Description 10/05/2024 3:15 PM EDT Appointment Maternal Medicine [place] [address] [place] [address] Health Maintenance Due Date Last Done Comments Depression Screening 2014 Adult BMI Follow Up Plan 01/15/2020 DTaP,Tdap and Td Vaccines (2 - Tdap) 2021 12/31/2006, 12/31/2006, 04/27/2003, Additional history exists Influenza Vaccine 12/28/2024 01/17/2004, 04/27/2003 Adult BMI Screening 09/10/2025 09/10/2024 Tobacco Screening 09/10/2025 09/10/2024 Pap Smear 05/20/2027 05/20/2024 Medical Devices Not on file Procedures Procedure Name Priority Date/Time Associated Diagnosis Comments US MFM AMNIOTIC FLUID VOLUME ASSESSMENT Routine 09/10/2024 4:35 PM EDT Pyelectasis of fetus on ultrasound Encounter for repeat ultrasound for heart rate US MFM OB FOLLOW-UP, 1 FETUS Routine 09/04/2024 12:32 PM EDT Pyelectasis of fetus on ultrasound US MFM COMPREHENSIVE ANATOMIC SURVEY Routine 07/30/2024 11:12 AM EDT Screening, , for anatomic survey UNLISTED LAB TEST Routine 07/30/2024 Pyelectasis of fetus on ultrasound UNLISTED GENETIC TEST Routine 07/27/2024 1:58 PM EDT US PREG LMTD 1 OR MORE FETUS Routine 07/27/2024 1:57 PM EDT US PREG LMTD 1 OR MORE FETUS Routine 07/27/2024 1:56 PM EDT from Last 3 Months Results * US MFM AMNIOTIC FLUID VOLUME ASSESSMENT (09/10/2024 4:35 PM EDT) Only the most recent of3 resultswithin the time period is included. Anatomical Region Laterality Modality OB-PROFESSIONAL NURSING ASSISTANT Ultrasound 09/10/2024 3:58 PM EDT Narrative 09/11/2024 11:45 AM EDT NAME: ANNA WESTON : 2000 SEX: F Accession Number: [id number] ORDERING PHYSICIAN: WILBUR TELLEZ REFERRING PHYSICIAN: NANCI SOTO Coding ----- --------- Procedures 01282: Limited OB / GILMA, 1 or More [...] today's exam. Recommendations ----- --------- Please see [facility] recommendations from prior clinical and/or ultrasound report documentation. Patient is scheduled 09/04/24 for a follow up growth. Subsequent follow up or other follow up as clinically determined by primary OB provider unless otherwise specified by MFM. Results forwarded to ordering provider so they can follow up with the patient as necessary. Procedure Note Elvis Granger MD - 09/11/2024 NAME: ANNA WESTON : 2000 SEX: F Accession Number: [id number] ORDERING PHYSICIAN: WILBUR TELLEZ REFERRING PHYSICIAN: NANCI SOTO Coding ----- --------- Procedures 90072: Limited OB / GILMA, 1 or More [...] today's exam. Recommendations ----- --------- Please see [facility] recommendations from prior clinical and/or ultrasoundreport documentation. Patient is scheduled 09/04/24 for a follow up growth. Subsequent follow up or other follow up as clinically determined byprimary OB provider unless otherwise specified by M. Results forwarded to ordering provider so they can follow up with thepatient as necessary. us Wilbur Tellez MD [facility] ORDERABLES Final Resul t * Unlisted Lab Test (07/30/2024) Unlisted lab test see scanned results MANUALLY TRANSCRIBED RESULTS 07/30/2024 us Elvis Granger MD LAB BLOOD ORDERABLES Final Result MANUALLY TRANSCRIBED RESULTS * Unlisted Genetic Test (07/27/2024 1:58 PM EDT) us Not In System Ref Prov LAB BLOOD ORDERABLES Julia stuart Result MANUALLY TRANSCRIBED RESULTS * Ultrasound limited 1 or more fetus (07/27/2024 1:57 PM EDT) Only the most recent of2 resultswithin the time period is included. Anatomical Region Laterality Modality OB-PROFESSIONAL NURSING ASSISTANT Ultrasound us Not In System Ref Prov IMG US ORDERABLES Final R esult from Last 3 Months Insurance [employer]
--- OUTSIDE RECORDS SUMMARY | 2024-09-23 06:13 | XMS_ITS | Encounter Summary ---
Author Organization [email or web address] Address [id number] [address] [place] [address] Care Team Providers Care Soc Analyst Name Role Phone Unavailable Primary Care Provider Unavailabl e Reason for Referral * Consultation (Routine) - Pending Review Specialty Diagnoses / Procedures Referred By Contac t Referred To Contact Pediatric Urology Diagnoses Abnormal ultrasonic finding on screening of mother, antepartum Elvis Granger MD [address] [address] Phone: tel: fax: Lori Mcclendon MD [address] [place] [address] Phone: tel: fax: Referral ID Status Reason Start Date Expiration Date Visits Requested Visits Authorized [id number] Pending Review Specialty Services Required 08/13/2024 08/13/2025 1 1 Encounter Details Date Type Department Care Team (Late st Contact Info) Description 08/13/2024 Orders Only Maternal- Medicine at [facility] [address] [place] [address] Kaya Murillo, TRACE Abnormal ultrasonic finding on screening of mother, antepartum (Primary Dx) Social History Tobacco Use Types Packs/Day Years [...] 10/05/2024 3:15 PM EDT Appointment Maternal Medicine [address] [place] [address] Scheduled Referrals Name Type Priority Associated Diagnoses Order Schedule Ambulatory referral to Pediatric Urology (Non-[facility]) Outpatient Referral Routine Abnormal ultrasonic finding on screening of mother, antepartum 1 Occurrences starting 08/13/2024 until 08/13/2025 documented as of this encounter Visit Diagnoses Diagnosis Abnormal ultrasonic finding on screening of mother, antepartum- Primary documented in this encounter
--- OUTSIDE RECORDS SUMMARY | 2024-09-23 06:13 | XMS_ITS | Encounter Summary ---
Author Organization [facility] Address [address] [place] [address] Care Team Providers Care Stereo Plotter Operator Name Role Phone Unavailable Primary Care Provider Unavailabl e Encounter Details Date Type Department Care Team (Late st Contact Info) Description 04/23/2024 Abstract [facility] OB [address] [place] [address] Yony Soto, DO [address] Hipolito Ramires, [facility]11 Social History Tobacco Use Types Packs/Day Years [...] How often do you attend chur or alevism services? More than 4 times per year 03/12/2024 Do you belong to any clubs o r organizations such as jain groups, unions, fraternal or athletic groups, or [...] Recorded Patient Health Questionnaire-2 Score 0 03/12/2024 [facility] of Occupat ional Health - Occupational [...] were you homeless or living in a long-term (including now)? 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
--- OUTSIDE RECORDS SUMMARY | 2024-09-23 06:13 | XMS_ITS | Encounter Summary ---
Author Organization [facility] Address [address] [place] [address] Care Team Providers Care Sole Dyer Name Role Phone Unavailable Primary Care Provider Unavailabl e Encounter Details Date Type Department Care Team (Late st Contact Info) Description 07/30/2024 Abstract [facility] OB [address] [place] [address] Yony Soto, DO [address] Hipolito Ramires, [facility]11 Social History Tobacco Use Types Packs/Day [...] How often do you attend chur or yarsanism services? More than 4 times per year 03/12/2024 Do you belong to any clubs o r organizations such as episcopal groups, unions, fraternal or athletic groups, or [...] Recorded Patient Health Questionnaire-2 Score 0 03/12/2024 [facility] of Occupat ional Health - Occupational [...] were you homeless or living in a alf (including now)? 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
--- OUTSIDE RECORDS SUMMARY | 2024-09-23 06:13 | XMS_ITS | Encounter Summary ---
Author Organization [facility] tem Address [id number] [address] [place] [address] Care Team Providers Care Construction Tech Name Role Phone Unavailable Primary Care Provider Unavailabl e Encounter Details Date Type Department Care Team (Late Contact Info) Description 07/27/2024 Orders Only Maternal- Medicine at [facility] [address] [place] [address] Ref Prov, [place] [address] Social History Tobacco Use Types Packs/Day Years Used Date Smoking Tobacco: Never Assessed Hunger Screening Answer Date Recorded Within the [...] 3:15 PM EDT Appointment Maternal Medicine [place] [facility] [place] [address] documented as of this encounter Procedures Procedure Name Priority Date/Time Associated Diagnosis Comments UNLISTED GENETIC TEST Routine 07/27/2024 1:58 PM EDT US PREG LMTD 1 OR MORE FETUS Routine 07/27/2024 1:57 PM EDT US PREG LMTD 1 OR MORE FETUS Routine 07/27/2024 1:56 PM EDT documented in this encounter Results * Unlisted Genetic Test (07/27/2024 1:58 PM EDT) us Not In System Ref Prov LAB BLOOD ORDERABLES Julia l Result MANUALLY TRANSCRIBED RESULTS * Ultrasound limited 1 or more fetus (07/27/2024 1:57 PM EDT) Anatomical Region Laterality Modality OB-GENERAL MERCHANDISE MANAGER Ultrasound us Not In System Ref Prov IMG US ORDERABLES Final R esult * Ultrasound limited 1 or more fetus (07/27/2024 1:56 PM EDT) Anatomical Region Laterality Modality OB-GENERAL MERCHANDISE MANAGER Ultrasound us Not In System Ref Prov IMG US ORDERABLES Final R esult documented in this encounter Visit Diagnoses Not on filedocumented in this encounter
--- OUTSIDE RECORDS SUMMARY | 2024-09-23 06:13 | XMS_ITS | Encounter Summary ---
Author Organization [facility] Address [address] [place] [address] Care Team Providers Care Parts Clerk Plant Maintenance Name Role Phone Unavailable Primary Care Provider Unavailabl e Encounter Details Date Type Department Care Team (Late st Contact Info) Description 09/22/2024 Abstract [facility] OB [address] [facility] [place] [address] Yony Soto, DO [address] [facility] [address] Hipolito Ramires, [facility] Social History Tobacco Use Types Packs/Day [...] How often do you attend chur or mormon services? More than 4 times per year 03/12/2024 Do you belong to any clubs o r organizations such as hinduism groups, unions, fraternal or athletic groups, or [...] Recorded Patient Health Questionnaire-2 Score 0 03/12/2024 [facility] of Occupat ional Health - Occupational Stress [...] were you homeless or living in a chcf (including now)? 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
--- OUTSIDE RECORDS SUMMARY | 2024-09-23 06:13 | XMS_ITS | Encounter Summary ---
Author Organization [employer] tem Address [id number] [address] [place] [address] Care Team Providers Care Cheesemaking Laborer Name Role Phone Unavailable Primary Care Provider Unavailabl e Encounter Details Date Type Department Care Team (Latest Contact Info) Description 09/10/2024 Travel Social History Tobacco Use Types Packs/Day Years [...] 3:15 PM EDT Appointment Maternal Medicine Amada [facility] [address] [place] [address] documented as of this encounter Visit Diagnoses Not on filedocumented in this encounter
--- OUTSIDE RECORDS SUMMARY | 2024-09-23 06:13 | XMS_ITS | Encounter Summary ---
Author Organization [facility] Address [address] [place] [address] Care Team Providers Care Forest Fire Fighter Name Role Phone Unavailable Primary Care Provider Unavailabl e Encounter Details Date Type Department Care Team (Late st Contact Info) Description 04/16/2024 Clinisync Result Encounter [facility] External Department Unsolicited Nanci Soto, DO [address] [facility] [address]ón [place], [place] [id number] Social History Tobacco Use Types Packs/Day Years [...] How often do you attend chur or druze services? More than 4 times per year 03/12/2024 Do you belong to any clubs o r organizations such as taoist groups, unions, fraternal or athletic groups, or [...] Recorded Patient Health Questionnaire-2 Score 0 03/12/2024 [facility] of Occupat ional Health - Occupational [...] were you homeless or living in a long term (including now)? 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 Not on fi le Not on file documented as of this encounter Plan of Treatment Upcoming Encounters Date Type Department Care Team (Late st Contact Info) Description 11/02/2024 1:30 PM EDT Visit [facility] OB [address] [facility] [place] [phone] Mimi Lanza PA [address] [facility] [place] [address] documented as of this encounter Procedures Procedure Name Priority Date/Time Associated Diagnosis Comments US OB L= 14 WEEKS FETUS 04/16/2024 4:41 AM EST documented in this encounter Results * US OB L= 14 WEEKS FETUS (04/16/2024 4:41 AM EST) Anatomical Region Laterality Modality Other 04/16/2024 4:41 AM EST Narrative 04/16/2024 4:44 [place] [address] Ultrasound Report Signed Patient: APRIL PUENTE MR#: [id number] : 2000 Acct:[id number] Age/Sex: 24 / F ADM Date: 04/15/24 Loc: [facility] Attending Dr: Nanci Soto D.O. Ordering Physician: Nanci Soto D.O. Date of Service: 04/15/24 Procedure(s): US OB <= 14 weeks fetus Accession Number(s): [id number] cc: Nanci Soto D.O. [place] [address] Patient Name: APRIL PUENTE MRN: [id number] date: 2000 Sex: F Assigned Patient Location: [facility] Current Patient Location: Accession/Order Number: [id number] Exam Date: 04/15/2024 11:29 Report Date: 04/16/2024 04:41 At the request of: NANCI SOTO Procedure: US OB <= 14 weeks fetus EXAMINATION: US OB <= 14 weeks fetus HISTORY: MISSED MENSES COMPARISON: No relevant comparison available. FINDINGS: GESTATIONAL SAC: Present and normal appearing. YOLK SAC: Present and normal appearing. POLE: Present and normal appearing. CARDIAC: Present. UTERUS: Normal size and appearance. OVARIES: Right: Not seen. Left: Normal. CERVIX: Not evaluated. CUL-DE-SAC: Normal. OTHER: None. AGE BY LMP: 14 weeks 0 days SAI BY LMP: 10/14/2024 AGE BY US CRL: 14 weeks 3 days SAI BY US CRL: 10/11/2024 US/US OB <= 14 weeks fetus IMPRESSION: 1. Single live intrauterine . 2. Suboptimal evaluation due to maternal body habitus and age. Electronically authenticated by: OMAR JOSEPH Date: 04/16/2024 04:41 Dictated By: Omar Joseph M.D. Signed By: 04/16/24443 DD/ 0 TD/TT: Drafter Seismograph: Procedure Note Radiology, Radiologist, - 04/16/2024 [place] [address] Ultrasound Report Signed Patient: APRIL PUENTEMR#: [id number] : 2000Acct:[id number] Age/Sex: 24 / FADM Date: 04/15/24 Loc: [facility] Attending Dr: Nanci Soto D.O. Ordering Physician: Nanci Soto D.O. Date of Service: 04/15/24 Procedure(s): US OB <= 14 weeks fetus Accession Number(s): [id number] cc: Nanci Soto D.O. [place] [id number] Patient Name: APRIL PUENTE MRN: [id number] date: 2000 Sex: F Assigned Patient Location: [facility] Current Patient Location: Accession/Order Number: [id number] Exam Date: 04/15/2024 11:29 Report Date: 04/16/2024 04:41 At the request of: NANCI SOTO Procedure: US OB <= 14 weeks fetus EXAMINATION: US OB <= 14 weeks fetus HISTORY: MISSED MENSES COMPARISON: No relevant comparison available. FINDINGS: GESTATIONAL SAC: Present and normal appearing. YOLK SAC: Present and normal appearing. POLE: Present and normal appearing. CARDIAC: Present. UTERUS: Normal size and appearance. OVARIES: Right: Not seen. Left: Normal. CERVIX: Not evaluated. CUL-DE-SAC: Normal. OTHER: None. AGE BY LMP: 14 weeks 0 days SAI BY LMP: 10/14/2024 AGE BY US CRL: 14 weeks 3 days SAI BY US CRL: 10/11/2024 US/US OB <= 14 weeks fetus IMPRESSION: 1. Single live intrauterine . 2. Suboptimal evaluation due to maternal body habitus and age. Electronically authenticated by: OMAR JOSEPH Date: 04/16/2024 04:41 Dictated By: Omar Joseph M.D. Signed By:04/16/24443 DD/ 0 TD/TT: Drafter Seismograph: us Nanci Soto DO [facility] Final Result documented in this encounter Visit Diagnoses Not on filedocumented in this encounter
--- OUTSIDE RECORDS SUMMARY | 2024-09-23 06:13 | XMS_ITS | Encounter Summary ---
Author Organization [facility] tem Address [id number] [address] [place] [address] Care Team Providers Care Landscape Architect And Planner Name Role Phone Unavailable Primary Care Provider Unavailabl e Encounter Details Date Type Department Care Team (Late st Contact Info) Description 08/05/2024 Orders Only Maternal- Medicine at [facility] [address] [place] [phone] Margarette Jessica RN Pyelectasis of fetus on ultrasound Social History Tobacco Use Types Packs/Day Years [...] 3:15 PM EDT Appointment Maternal Medicine Amada [address] [place] [address] documented as of this encounter Procedures Procedure Name Priority Date/Time Associated Diagnosis Comments UNLISTED LAB TEST Routine 07/30/2024 Pyelectasis of fetus on ultrasound documented in this encounter Results * Unlisted Lab Test (07/30/2024) Unlisted lab test see scanned results MANUALLY TRANSCRIBED RESULTS 07/30/2024 us Elvis Granger MD LAB BLOOD ORDERABLES Final Result MANUALLY TRANSCRIBED RESULTS documented in this encounter Visit Diagnoses Diagnosis Pyelectasis of fetus on ultrasound documented in this encounter
--- OUTSIDE RECORDS SUMMARY | 2024-09-23 06:13 | XMS_ITS | Encounter Summary ---
Author Organization [facility] Address [address] [place] [address] Care Team Providers Care Chore Worker Name Role Phone Unavailable Primary Care Provider Unavailabl e Encounter Details Date Type Department Care Team (Late st Contact Info) Description 07/09/2024 Abstract [facility] OB [address] [facility] [place] [address] Yony Soto, DO [address] [facility] [address]olito Ramires, [facility] Social History Tobacco Use Types Packs/Day [...] How often do you attend chur or voodoo services? 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
--- OUTSIDE RECORDS SUMMARY | 2024-09-23 06:13 | XMS_ITS | Encounter Summary ---
Author Organization [facility] tem Address [id number] [address] [place] [address] Care Team Providers Care Forest Fire Fighter Name Role Phone Unavailable Primary Care Provider Unavailabl e Encounter Details Date Type Department Care Team (Late st Contact Info) Description 07/27/2024 Abstract Maternal- Medicine at [facility] [address] [place] [phone] External, Scanning Provider Social History Tobacco Use Types Packs/Day Years [...] Maternal Medicine Amada [address] [place] [phone] documented as of this encounter Visit Diagnoses Not on filedocumented in this encounter
--- OUTSIDE RECORDS SUMMARY | 2024-09-23 06:13 | XMS_ITS | Encounter Summary ---
Author Organization [facility] Address [address] [place] [address] Care Team Providers Care Service Or Work Dispatcher Chief Name Role Phone Unavailable Primary Care Provider Unavailabl e Encounter Details Date Type Department Care Team (Late st Contact Info) Description 06/01/2024 Orders Only [facility] OB [address] [facility] [place] [address] Olga Lidia Pop MA [address] [place] [address] Social History Tobacco Use Types Packs/Day Years [...] often do you attend chur ch or holiness services? More than 4 times [...] Recorded Patient Health Questionnaire-2 Score 0 03/12/2024 [facility] of Occupat ional Health - Occupational [...] were you homeless or living in a mcc (including now)? 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 Not on fi le Not on file documented as of this encounter Plan of Treatment Upcoming Encounters Date Type Department Care Team (Late st Contact Info) Description 11/02/2024 1:30 PM EDT Visit [facility] B[facility] OB [address] [facility] [place] [address] Mimi Lanza PA [address] [place] [address] [place] [address] documented as of this encounter Procedures Procedure Name Priority Date/Time Associated Diagnosis Comments PAP SMEAR Routine 05/20/2024 12:00 AM EST documented in this encounter Results * Pap Smear (05/20/2024 12:00 AM EST) Swab Cervical swab / Unknown us Mimi REES LAB CYTOLOGY ORDERABLES Final Re sult EXTERNAL LAB documented in this encounter Visit Diagnoses Not on filedocumented in this encounter
[2024-09-23 09:02] LABS: Hematocrit 33.4 % (36.0-48.0); Hemoglobin 11.3 g/dL (12.0-16.0); Mean Corpuscular HGB Conc 33.8 g/dL (29.9-35.2); Mean Corpuscular Hemoglobin 30.7 pg (26.7-34.0); Mean Corpuscular Volume 90.8 fL (81.0-99.0); Mean Platelet Volume 9.4 fL (9.5-13.5); Platelet Count 295 10^3/uL (150-450); Red Blood Count 3.68 10^6/uL (4.20-5.40); White Blood Count 12.8 10^3/uL (4.0-11.0)
--- NOTE | 2024-09-23 09:08 | PC.NURSE ---
0815- IV attempt to Left arm without success. 2nd attempt to R wrist and patient requests to stop insertion due to pain, IV catheter removed intact.
[2024-09-23 12:21] LABS: Amphetamine Screen Urine NEGATIVE (NEGATIVE); Barbiturates Screen Urine NEGATIVE (NEGATIVE); Benzodiazepines Screen Urine NEGATIVE (NEGATIVE); Buprenorphine Screen Urine NEGATIVE (NEGATIVE); Cannabinoid Screen Urine POSITIVE (NEGATIVE); Cocaine Screen Urine NEGATIVE (NEGATIVE); Methadone Screen Urine NEGATIVE (NEGATIVE); Methamphetamines Screen Urine NEGATIVE (NEGATIVE); Opiate Screen Urine NEGATIVE (NEGATIVE); Oxycodone Screen Urine NEGATIVE (NEGATIVE); Phencyclidine Screen Urine NEGATIVE (NEGATIVE); Tricyclic Antidepressant Urine NEGATIVE (NEGATIVE)
[2024-09-23] MEDS: OXYTOCIN/0.9 % SODIUM CHLORIDE 10 UNITS/500 ML PLAST..BAG 6 UNIT IV (14:13)
[2024-09-23] MEDS: 0.9 % SODIUM CHLORIDE 1,000 ML 125 ML IV (14:15)
[2024-09-23] MEDS: 0.9 % SODIUM CHLORIDE 1,000 ML 1000 ML IV (20:05)
[2024-09-23] MEDS: CITRIC ACID/SODIUM CITRATE 30 ML SOLUTION ORACIT SHOHL'S SOLN PO (20:14)
[2024-09-23] MEDS: CEFAZOLIN SODIUM/DEXTROSE,ISO 2 GM/50 ML PIGGYBACK IV (20:14)
[2024-09-23] MEDS: FAMOTIDINE/PF 20 MG/2 ML VIAL IV (20:15)
[2024-09-23] MEDS: METOCLOPRAMIDE HCL 10 MG/2 ML VIAL IVP (20:15)
[2024-09-23] MEDS: LACTATED RINGER'S SOLUTION 1,000 ML 50 ML IV (21:20)
--- NOTE | 2024-09-23 21:24 | PM.ONB ---
Brief Operative Note Date of procedure: 09/23/24 Pre-op diagnosis general: iup at 37 1/7wks, arrhythmia, iugr Post-op diagnosis: same as pre-op Procedure: NAME OF PROCEDURE: [ section ] PROCEDURE: Patient was taken back to the Operating Room where she was given a spinal anesthesia with Duramorph without difficulty. She was prepped and draped in the normal sterile fashion. A Pfannenstiel skin incision was then made 2 cm above the symphysis pubis and carried down to underlying rectus fascia using a Bovie. The fascia was incised in the midline and extended laterally using Ardon scissors. Two Laila clamps were placed on the superior aspect of the fascia and dissected off the underlying rectus muscles. The same was performed on the inferior aspect as well. The muscles were then in the midline. Peritoneum was identified and entered bluntly. The peritoneum was then extended superiorly and inferiorly with good visualization of the bladder. The bladder blade was inserted. A low transverse incision was made on the patient's uterus and extended laterally digitally. The infant was then delivered atraumatically after the bladder blade was removed in the cephalic position. The cord was clamped and cut. Cord blood was obtained. The infant was handed off to awaiting team. The patient's placenta was spontaneously delivered. The uterus was then exteriorized. The uterus was cleared of all clots and debris. The bladder blade was reinserted. The patient's uterine incision was closed using #0 Vicryl in a running lock fashion. Excellent hemostasis was assured. The uterus was then returned to the patient's abdomen. The patient's abdomen was copiously irrigated using warm saline. Peritoneal gutters were cleared of all clots and debris. Again excellent hemostasis was assured. The patient's peritoneum was closed using 3-0 Vicryl in a running fashion. The patient's fascia was closed using #0 Vicryl in a running fashion. The patient's skin was closed using 4-0 Vicryl subcuticularly. The patient tolerated the procedure well. Sponge, lap, and needle counts were correct x2. The patient was taken to the Recovery Room in stable condition. Anesthesia: spinal Surgeon: Yony Soto Hide And Skin Processing Worker: Anna Fields Estimated blood loss (mL): 575 Pathology: other (placenta) Condition: stable Disposition: PACU Urinary Catheter Management Urinary Catheter Management Urethral: Cath placed during this visit: no
--- NOTE | 2024-09-23 21:28 | PM.OBPRCCS ---
Procedure Pre-op/Post-op diagnoses: Pre-Op/Post-Op Diagnoses Operation Date: 09/23/24 20:30 <No data on this case meets the specified criteria> Procedure: Procedures Operation Date: 09/23/24 20:30 Actual Procedure Side Surgeon p Not Applicable Yony Soto DO Maintenance Department Technician: Anna Fields Estimated blood loss (mL): 575 Disposition: PACU Anesthesia type: Spinal
[2024-09-24] VITALS (14 sets, daily range): BP systolic 102–129; BP diastolic 50–76; PULSE 70–92; TEMP 36.6–37.2; O2SAT 99
[2024-09-24] MEDS: KETOROLAC TROMETHAMINE 30 MG/ML VIAL IVP ×4 (03:37→22:33)
[2024-09-24] MEDS: ACETAMINOPHEN 500 MG TABLET 1000 MG PO ×4 (03:38→22:27)
[2024-09-24] MEDS: CEFAZOLIN SODIUM/DEXTROSE,ISO 2 GM/50 ML PIGGYBACK IV (03:45)
[2024-09-24 06:20] LABS: Basophils Percent Auto 0.1 % (0.2-2.0); Eosinophils Percent Auto 0.2 % (0.9-7.0); Hematocrit 29.7 % (36.0-48.0); Hemoglobin 9.8 g/dL (12.0-16.0); Immature Granulocytes Abs Auto 0.07 10^3/uL (0.00-0.03); Immature Granulocytes Pct Auto 0.5 % (0.0-0.5); Lymphocytes Absolute Auto 1.4 10^3/uL (1.2-3.8); Lymphocytes Percent Auto 9.2 % (20.5-60.0); Mean Corpuscular Hemoglobin 29.9 pg (26.7-34.0); Mean Corpuscular Volume 90.5 fL (81.0-99.0); Mean Platelet Volume 8.8 fL (9.5-13.5); Monocytes Absolute Auto 1.1 10^3/uL (0.3-0.8); Monocytes Percent Auto 7.7 % (1.7-12.0); Neutrophils Absolute Auto 12.2 10^3/uL (1.4-6.5); Neutrophils Percent Auto 82.3 % (43.0-75.0); Platelet Count 244 10^3/uL (150-450); Red Blood Count 3.28 10^6/uL (4.20-5.40); Red Cell Distribution Width 12.9 % (11.0-15.0); White Blood Count 14.8 10^3/uL (4.0-11.0)
--- NOTE | 2024-09-24 08:01 | PM.OBPN ---
OB - PN: Subj Subjective Patient comments: no complaints and pain well controlled [place]ne status: doing well Exam Constitutional Vital Signs, click to edit/add: Last Vital Signs Temp 98.0 F 09/24/24 04:14 Pulse 92 H 09/24/24 04:14 Resp 15 09/24/24 04:14 BP 108/70 09/24/24 04:14 Pulse Ox 99 09/23/24 22:38 O2 Del Method Room Air 09/24/24 04:15 Documenting provider has reviewed patient's vital signs: yes Common normals: no apparent distress Respiratory Common normals: normal respiratory effort and clear to auscultation bilaterally Cardio Common normals: regular rate and regular rhythm GI Common normals: Normal to inspection, nondistended, normoactive bowel sounds present Extremity Common normals: no clubbing, cyanosis or edema and no calf tenderness Results Labs Labs: Short CBC 09/23/24 09/24/24 Range/Units 08:50 06:02 WBC 12.8 H 14.8 H (4.0-11.0) 10^3/uL Hgb 11.3 L 9.8 L (12.0-16.0) g/dL Hct 33.4 L 29.7 L (36.0-48.0) % Plt Count 295 244 (150-450) 10^3/uL Urinary Catheter Management Urinary Catheter Management Urethral: Cath placed during this visit: yes Urethral indwelling: No Insertion date: 09/23/24 Insertion time: 20:00 OB - PN: A/P Plan - day: 1 Plan: routine postop care Time Spent with Patient Time: Total time spent is greater than 50% in coordination of care (as documented) at patient's floor/unit and/or counseling patient: Total time spent with greater than 50% in coordination of care (as documented) at patient's floor/unit and/or counseling patient: less than 15 minutes
[2024-09-24] MEDS: ENOXAPARIN SODIUM 40 MG/0.4 ML SYRINGE SUBQ (09:01)
[2024-09-24] MEDS: DOCUSATE SODIUM 100 MG CAPSULE PO ×2 (09:01→22:27)
[2024-09-25 01:43] VITALS: BP 112/63
[2024-09-25] MEDS: ACETAMINOPHEN 500 MG TABLET 1000 MG PO ×3 (04:50→19:23)
[2024-09-25] MEDS: KETOROLAC TROMETHAMINE 30 MG/ML VIAL IVP ×3 (04:52→19:23)
--- NOTE | 2024-09-25 07:43 | P.OBPN_ITS ---
OB - PN: Subj Subjective Patient comments: no complaints and pain well controlled Gustine status: doing well Exam Constitutional Vital Signs, click to edit/add: Last Vital Signs Temp 99.0 F 09/24/24 21:11 Pulse 84 09/24/24 08:42 Resp 17 09/24/24 21:11 BP 129/65 09/24/24 21:11 Pulse Ox 99 09/24/24 15:26 O2 Del Method Room Air 09/25/24 01:40 Documenting provider has reviewed patient's vital signs: yes Common normals: no apparent distress Respiratory Common normals: normal respiratory effort and clear to auscultation bilaterally Cardio Common normals: regular rate and regular rhythm GI Common normals: Normal to inspection, nondistended, normoactive bowel sounds present Extremity Common normals: no clubbing, cyanosis or edema and no calf tenderness Urinary Catheter Management Urinary Catheter Management Urethral: Cath placed during this visit: yes, but has since been removed by the nurse Urethral indwelling: No Insertion date: 09/23/24 Insertion time: 20:00 Removal date: 09/24/24 Removal time: 07:55 OB - PN: A/P Plan - day: 2 Plan: routine postop care, discharge home and other (fu 1wk) Time Spent with Patient Time: Total time spent is greater than 50% in coordination of care (as documented) at patient's floor/unit and/or counseling patient: Total time spent with greater than 50% in coordination of care (as documented) at patient's floor/unit and/or counseling patient: less than 15 minutes
--- NOTE | 2024-09-25 08:13 | PC.NURSE ---
LC into room to check latch per request of dad. Infant asleep, mouth resting on breast. Discussion on latch and positioning, importance of waking for feeds, unwrapping for skin to skin, and positioning mom well for easier latch. Parents attentive to education, will need much reinforcement. Mom sits upright, positions infant well, and supports breast. LC assist with deep latch with infant continuing to suck, intermittent soft swallows noted. Mom is able to easily express drops of colostrum. Discussed LPI infant and need to be diligent in feedings at breast 10/10, and expression of milk to offer easy milk via teaspoon, or syringe As infant matures will be able to nurse longer at the breast and will no longer need supplements. Pt states has her own pump with her and will get started now Sig. other asking multiple questions, prefers demo for everything then he will try. Parents willing to try care for , both are hesitant/timid. Much encouragement needed.
[2024-09-25 09:15] VITALS: BP 110/52; TEMP 36.5
[2024-09-25 09:30] VITALS: O2SAT 99
[2024-09-25] MEDS: ENOXAPARIN SODIUM 40 MG/0.4 ML SYRINGE SUBQ (10:23)
[2024-09-25] MEDS: DOCUSATE SODIUM 100 MG CAPSULE PO ×2 (10:23→21:42)
--- NOTE | 2024-09-25 13:15 | PC.NURSE ---
Pt in bed pumping. Dad holds and changes diaper for . Reinforced feeding plan of 02/05 and supplement with own pumped milk. Mom using 28.5 flanges with her Ameda MyaJoy pump. States her sister fitted me. LC explained why flange is too large and will re-fit for correct size. Measured at 19mm for flange. Pt states will order inserts for best fit. For time being will use 25mm flanges. No further questions at this time.
[2024-09-25 16:40] VITALS: BP 93/64
[2024-09-25 16:41] VITALS: O2SAT 99
[2024-09-25 16:46] VITALS: BP 93/64; PULSE 81; TEMP 36.9; O2SAT 100
[2024-09-25 20:08] LABS: Cannabinoid Positive (.); Carboxy THC Conf, MS, UR 67 ng/mL (Cutoff=10)
[2024-09-26 00:01] VITALS: BP 100/68; TEMP 36.8
--- NOTE | 2024-09-26 08:31 | PM.OBPN ---
OB - PN: Subj Subjective Patient comments: no complaints Narrative: Patient ready to go home Exam Constitutional Vital Signs, click to edit/add: Last Vital Signs Temp 98.2 F 09/26/24 00:01 Pulse 81 09/25/24 16:46 Resp 18 09/25/24 16:46 BP 100/68 09/26/24 00:01 Pulse Ox 100 09/25/24 16:46 O2 Del Method Room Air 09/26/24 00:00 Common normals: no apparent distress and oriented x3 GI Common normals: Normal to inspection, nondistended, normoactive bowel sounds present and soft to palpation Other: Incision healing well, no erythema/induration/drainage Other: perineum - minimal bleeding Extremity Common normals: full ROM Neuro Common normals: oriented x3 Psych Common normals: mental status grossly normal Urinary Catheter Management Urinary Catheter Management Urethral: Cath placed during this visit: yes, but has since been removed by the nurse Urethral indwelling: No Insertion date: 09/23/24 Insertion time: 20:00 Removal date: 09/24/24 Removal time: 07:55 OB - PN: A/P Assessment and Plan (1) Term delivered: Plan Term delivered Plan - day: 3 Plan: routine postop care and discharge home Comment: to call her physicians office for follow up Time Spent with Patient Time: Total time spent is greater than 50% in coordination of care (as documented) at patient's floor/unit and/or counseling patient: Total time spent with greater than 50% in coordination of care (as documented) at patient's floor/unit and/or counseling patient: less than 15 minutes
--- NOTE | 2024-09-26 08:39 | PM.OBDS ---
DS: Providers Provider Date of admission: 09/23/24 05:53 Primary care physician: Non-Staff Physician, Admitting clinician: Yony Soto Attending physician on admission: Yony Soto Consults: 09/23/24 Consult to Utility Operator Yarn Routine Has provider been notified: Yes Reason for consult:: Drug Abuse Attending physician on discharge: Yony Soto Discharging clinician: Kaitlynn Gaines Anticipated date of discharge: 09/26/24 DS: Diagnosis Discharge Diagnosis (1) Term delivered: Plan home follow up in office - patient to call OB - DS: Summary Hospital Course Hospital Course: Normal post op course Peripartum Data - Procedures: Procedures Operation Date: 09/23/24 20:30 Actual Procedure Side Surgeon p Not Applicable Yony Soto DO Peripartum Data - Vaginal Delivery Procedures: Procedures Operation Date: 09/23/24 20:30 Actual Procedure Side Surgeon p Not Applicable Yony Soto DO Complications complications: none Delivery method: section Gender: female Discharge plan: home Status at Discharge Functional status at discharge: independent ambulation Overall status at discharge: patient is progressing back to baseline Time Spent with Patient Time attestation: Total time spent providing and/or coordinating discharge services: Time spent: less than 30 minutes Exam Constitutional Vital Signs, click to edit/add: Last Vital Signs Temp 98.2 F 09/26/24 00:01 Pulse 81 09/25/24 16:46 Resp 18 09/25/24 16:46 BP 100/68 09/26/24 00:01 Pulse Ox 100 09/25/24 16:46 O2 Del Method Room Air 09/26/24 00:00 DS: Data Data Completed and Pending Labs on day of discharge: Labs from last 24 hours 09/23/24 11:30 Urine Cannabinoids Positive A Ur Carboxy THC GC/MS 67 Discharge Plan Discharge Disposition: Home, Self-Care Condition: Good Discharge Medications: Discontinued ondansetron 4 mg tablet,disintegrating 4 mg PO DAILY PRN (Reason: nausea and vomiting) Qty: 15 0RF Activity: increase activity as tolerated Diet: advance to your usual diet Print Language: Tajik Forms: Portal Instructions Follow Up Appointments: Dr Brittany velasco scheduled
[2024-09-26 09:18] VITALS: BP 107/55
[2024-09-26] MEDS: DOCUSATE SODIUM 100 MG CAPSULE PO ×2 (09:21→22:57)
[2024-09-26] MEDS: ENOXAPARIN SODIUM 40 MG/0.4 ML SYRINGE SUBQ (09:21)
[2024-09-26 09:35] VITALS: PULSE 65; TEMP 36.7
[2024-09-26] MEDS: ACETAMINOPHEN 500 MG TABLET 1000 MG PO ×3 (09:45→22:57)
--- NOTE | 2024-09-26 11:34 | PC.NURSE ---
shown how to hand express milk and discussed plan to pump after every other feed and supplement baby with milk
[2024-09-26 16:36] VITALS: PULSE 72; TEMP 36.9
--- NOTE | 2024-09-26 16:39 | PC.NURSE ---
reviewed content of teaching folder with pt and significant other and reviewed which videos they have yet to watch
[2024-09-26] MEDS: IBUPROFEN 400 MG TABLET 800 MG PO (18:17)
[2024-09-27 00:45] VITALS: BP 126/80; PULSE 68; TEMP 37
--- NOTE | 2024-09-27 08:41 | PM.OBPN ---
OB - PN: Subj Subjective Patient comments: no complaints and pain well controlled Exam Constitutional Vital Signs, click to edit/add: Last Vital Signs Temp 98.6 F 09/27/24 00:45 Pulse 68 09/27/24 00:45 Resp 16 09/27/24 00:45 BP 126/80 09/27/24 00:45 Pulse Ox 100 09/25/24 16:46 O2 Del Method Room Air 09/27/24 00:45 Common normals: no apparent distress and oriented x3 GI Common normals: soft to palpation and non-tender Other: Fundus firm below umbilicus Incision healing well (patient states getting sharp pains at times - counseled), no erythema/drainage Other: perineum - minimal bleeding Extremity Common normals: normal to inspection Neuro Common normals: oriented x3 Psych Common normals: mental status grossly normal Urinary Catheter Management Urinary Catheter Management Urethral: Cath placed during this visit: yes, but has since been removed by the nurse Urethral indwelling: No Insertion date: 09/23/24 Insertion time: 20:00 Removal date: 09/24/24 Removal time: 07:55 OB - PN: A/P Assessment and Plan (1) Term delivered: Plan discharge held yesterday because baby not ok for discharge Discharge to home today Plan - Vaginal Delivery Plan: discharge home Time Spent with Patient Time: Total time spent is greater than 50% in coordination of care (as documented) at patient's floor/unit and/or counseling patient: Total time spent with greater than 50% in coordination of care (as documented) at patient's floor/unit and/or counseling patient: less than 15 minutes
[2024-09-27 08:45] VITALS: PULSE 90; TEMP 36.6
[2024-09-27] MEDS: IBUPROFEN 400 MG TABLET 800 MG PO (08:51)
[2024-09-27] MEDS: DOCUSATE SODIUM 100 MG CAPSULE PO (08:52)
[2024-09-27 08:56] VITALS: BP 103/57; PULSE 87
== END 2024-09-27 11:15 | disposition home or self-care (01) | DRG 540 ==
PROVIDERS: Admitting Provider Obstetrics & Gynecology; Visit Provider Obstetrics & Gynecology
PROC: 10D00Z1 Extraction of Products of Conception, Low, Open Approach (ICD-10-PCS; CPT 59514; principal; 2024-09-23 20:30)
DX: O36.5930 Maternal care for other known or suspected poor fetal growth, third trimester, not applicable or unspecified (principal); O76 Abnormality in fetal heart rate and rhythm complicating labor and delivery; Z3A.37 37 weeks gestation of pregnancy; Z37.0 Single live birth; O99.324 Drug use complicating childbirth; F12.90 Cannabis use, unspecified, uncomplicated
CPT/HCPCS: 36415; 51702; 59050; 76818; 80307; 80349; 85025; 85027; 86850; 86900; 86901; 88307; 94667; 94668; J0131; J0665; J0690; J1200; J1650; J1885; J2274; J2371; J2405; J2590; J2765; J3490

== ENCOUNTER 2024-09-28 08:06 | Outpatient (OUT) | payer OTHER, SELFPAY ==
[2024-09-28 14:07] VITALS: BP 95/62; PULSE 81; TEMP 36.6; O2SAT 98
--- NOTE | 2024-09-28 14:29 | PC.NURSE ---
follow up. Both adults are frazzled due to drive and being pulled over by career developer for outdated tags. Encouraged to relax. April states has been feeding baby every 2 hours. Really only likes to latch on left side . Has been pumping both sides for easy milk as is LPI and sleepy at the breast. Right breast has full area's, palpated and massaged. Discussed breast care and does own hands on. April with VSS and assessment WNL. Incision open to air. Pt has not showered since discharge, Incision noted to be moist, slight foul odor, no redness or drainage noted. Steri-strips peeling off due to moistness of incision. Incision cleaned with wet towelette and 4x4 gauze opened and placed against incision. Discussed daily showers, incision inspection, keeping incision dry, switching to peripad and regular panties instead of adult pull up. Verbalized understanding. States to see Dr Soto on Saturday09/30/2024. Baby is with VSS and assessment WNL. to breast, right side, placed football hold and with encouragement to mom, latched well. Baby with deep latch , sucking and noted swallows. Post feed weight is up 23 gms. for 12 min feed. Baby is very sleepy after 1 breast. Mom states this is when she would get the easy milk Baby has numerous follow up appointment with specialist due to irregular heart rate and kidney enlargement see on ultrasound. Mom declines to schedule weight check appointment. Aware to call for questions or support. Aware of [facility] group. Serum Bili draw completed per previous order. Family to leave and LC will call for ding.
== END 2024-09-28 08:07 | disposition home or self-care (01) ==
PROVIDERS: Visit Provider Obstetrics & Gynecology
DX: Z39.1 Encounter for care and examination of lactating mother (principal)